=== PATIENT | female | born 1995 | race Caucasian/White ===

== ENCOUNTER 2023-07-21 13:53 | Outpatient (CLI) | payer BC, SELFPAY ==
--- OUTSIDE RECORDS SUMMARY | 2023-07-21 13:57 | XMS_ITS | Referral Summary ---
Author Name Unknown Organization [facility] Address [address] [place] [id number] Care Team Providers Care Header Dock Name Role Phone Elsewhere, Pcp Primary Care Provider Unavailabl e Source Comments Patient records contain information from all sites at [facility]. For routine questions regarding patient records, call [phone] during business hours, M-F 8:00 AM - 5:00 PM Central Time. Record requests for emergency care only can be directed to [phone] at any time.[facility] Allergies No known active allergies Medications Medication Sig Dispensed Refills Start Date End Date Status docusate sodium (COLACE) 100 mg capsule Take 1 capsule (100 mg total) by mouth 2 (two) times a day. 30 capsule 1 10/30/2021 Active Additional Information Patient not taking.Reported on 05/19/2022 ibuprofen (ADVIL,MOTRIN) 600 mg tablet Take 1 tablet (600 mg total) by mouth every 6 (six) hours as needed for mild pain or score 1-3 of 10, moderate pain or score 4-6 of 10, severe pain or score 7-10 of 10, headaches or fever. 90 tablet 0 10/30/2021 Active omega 8-hgr-vau-fish oil 1,000 mg (120 mg-180 mg) capsule Take by mouth. 0 06/01/2018 Ac tive Active Problems Problem Noted Date Diagnosed Date Maternal Care For Intrauterine Single Gest ation 10/30/2021 39 Weeks Gestation 10/29/2021 Social History Tobacco Use Types Packs/Day Years Used Date Smoking Tobacco: Never Tobacco Cessation:Counseling Given: Not Answered Nutrition Answer Date Recorded Nutrition: EVOO Fat Source Unknown 10/29 Nutrition: Servings of Fruits/Vegetables per Day Not on file 10/29/2021 Dental Answer Date Recorded Dental: Regular Dentist Unknown 10/30/19 Sex and Gender Information Value Date Recorded Sex Assigned at Not on file Gender Identity Not on file Sexual Orientation Not on file Last Filed Vital Signs Vital Sign Reading Time Taken Comments Blood Pressure 106/63 09/17/2022 1:15 PM CDT Pulse 70 09/17/2022 1:15 PM CDT Temperature 37.3 ??C (99.1 ??F) 09/17/2022 11:29 AM C DT Respiratory Rate 22 09/17/2022 1:15 PM CDT Oxygen Saturation 98% 09/17/2022 1:15 PM CDT Inhaled Oxygen Concentration - - Weight 73.6 kg (162 lb 3.2 oz) 09/17/2022 11:30 AM CDT Height 175.5 cm (5' 9.09) 05/19/2022 1:41 PM CS T Body Mass Index 23.89 05/19/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
--- OUTSIDE RECORDS SUMMARY | 2023-07-21 13:57 | XMS_ITS | Clinical Summary ---
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 For routine questions regarding patient records, call [phone] during business hours, M-F 8:00 AM - 5:00 PM Central Time. Record requests for emergency care only can be directed to [phone] at any time.[facility] Allergies No known active allergies Medications Medication [...] fever. 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 Plan of Treatment Health Maintenance Due Date Last Done Comments Cervical Cancer Screening 1995 HIV Screening 1995 Hepatitis B Vaccines (1 of 3 - 3-dose series) 1995 Hepatitis C Screening 1995 COVID-19 Vaccine (#1) 01/10/1996 Influenza Vaccine (#1) 2023 Depression Screening (Annual PHQ-2) 06/20/2023 DTaP,Tdap,and Td Vaccines (2 - Td or Tdap) 07/04/2033 07/04/2023 HPV Vaccines Aged Out No longer eligi ble based on patient's age to complete this topic Pneumococcal vaccine (0-64 years) Aged Out No longer eligible based on patient's age to complete this topic Advance Directives For more information, please contact: [phone] Latest Code Status on File Code Status Date Activated Date Inactivated Comments Full Code 10/30/2021 2:51 AM 10/30/2021 3:16 PM Question Answer Comments Full Code: Not Discussed Due to: Not medically appropriate Care Teams Car Rental Deliverer Relationship Specialty Start Date End Date Elsewhere, Pcp PCP - General Internal Medicine 09/17/22
--- OUTSIDE RECORDS SUMMARY | 2023-07-21 13:57 | XMS_ITS | Referral Summary ---
Author Name Unknown Organization [facility] Address [address] [place] [id number] Care Team Providers Care Bariatric Program Coordinator Name Role Phone Renee Bennett MD Primary Care Provider [phone] Renee Bennett MD Unavailable [phone] Unavailable [phone] Encounters Date Type Department Care Team Description 07/19/2023 4:40 PM MARBLE RUBBER Office Visit [address] [phone] Renee Bennett MD Encounter for supervision of other normal in third trimester (Primary Dx); 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 07/18/2023 Travel 07/18/2023 4:00 PM MARBLE RUBBER Office Visit [facility] [place] [address] [place] [phone] Jennifer Boyer MD Rauk, Tyshawn Flor MD Insulin controlled gestational diabetes mellitus (GDM) in third trimester (Primary Dx) 07/18/2023 3:30 PM MARBLE RUBBER - 07/18/2023 11:59 PM MARBLE RUBBER Hospital Encounter [facility] M[facility] [address] [place] [phone] Jennifer Boyer MD Rauk, Tyshawn Flor MD Gestational diabetes mellitus (GDM) in third trimester controlled on oral hypoglycemic drug; Prior with demise and current in third trimester Discharge Disposition: Home or Self Care 07/15/2023 Travel 07/15/2023 12:15 PM MARBLE RUBBER Office Visit [facility] [place] [address] [place] [address] Rosemary Cheema MD Insulin controlled gestational diabetes mellitus (GDM) in third trimester (Primary Dx); Prior with demise and current in third trimester 07/15/2023 11:40 AM MARBLE RUBBER - 07/15/2023 11:59 PM MARBLE RUBBER Hospital Encounter [facility] [place] [address] [place] [address] Rosemary Cheema MD Gestational diabetes mellitus (GDM) in third trimester controlled on oral hypoglycemic drug; Prior with demise and current in third trimester Discharge Disposition: Home or Self Care 07/15/2023 8:40 AM MARBLE RUBBER Office Visit [address] [phone] Renee Bennett MD Encounter for supervision of other normal in second trimester (Primary Dx); Gestational diabetes mellitus (GDM), antepartum, gestational diabetes method of control unspecified 07/14/2023 Travel 2023 Travel 2023 8:30 AM MARBLE RUBBER Office Visit [facility] [place] [address] [place] [phone] Rayshawn Nunez MD Insulin controlled gestational diabetes mellitus (GDM) in third trimester (Primary Dx) 2023 8:00 AM MARBLE RUBBER - 2023 11:59 PM MARBLE RUBBER Hospital Encounter [facility] [address] [place] [phone] Rayshawn Nunez MD Gestational diabetes mellitus (GDM) in third trimester controlled on oral hypoglycemic drug; Prior with demise and current in third trimester Discharge Disposition: Home or Self Care 07/08/2023 Travel 07/08/2023 Telephone [facility] [place] [address] [place] [address] Chyna Garcia RN Decreased Movement 07/08/2023 Telephone [facility] [address] [address] [facility] [address] [place] [phone] Chyna Garcia RN Decreased Movement 07/08/2023 4:10 PM MARBLE RUBBER - 07/08/2023 5:05 PM MARBLE RUBBER Hospital Encounter [facility] [address] [place] [address] Renee Bennett MD Discharge Disposition: Home or Self Care 07/06/2023 Travel 07/06/2023 4:00 PM MARBLE RUBBER Office Visit [facility] [place] [address] [facility] [address] [place] [phone] Tyshawn Mccurdy MD Gestational diabetes mellitus (GDM) in third trimester controlled on oral hypoglycemic drug (Primary Dx); Prior with demise and current in third trimester 07/06/2023 3:30 PM MARBLE RUBBER - 07/06/2023 11:59 PM MARBLE RUBBER Hospital Encounter [facility] Medicine [place] [address] [facility] [address] [place] [phone] Tyshawn Mccurdy MD Gestational diabetes mellitus (GDM) in third trimester controlled on oral hypoglycemic drug; Prior with demise and current in third trimester Discharge Disposition: Home or Self Care 07/04/2023 Travel 07/04/2023 4:00 PM MARBLE RUBBER Office Visit [facility] Medicine [place] [address] [facility] [address] [place] [phone] Rosemary Cheema MD Gestational diabetes mellitus (GDM) in third trimester controlled on oral hypoglycemic drug (Primary Dx) 07/04/2023 3:15 PM MARBLE RUBBER - 07/04/2023 11:59 PM MARBLE RUBBER Hospital Encounter [facility] Medicine [place] [address] [facility] [address] [place] [phone] Rosemary Cheema MD Gestational diabetes mellitus (GDM) in third trimester controlled on oral hypoglycemic drug; Prior with demise and current in third trimester Discharge Disposition: Home or Self Care 07/04/2023 8:20 AM MARBLE RUBBER Office Visit [address] [phone] Renee Bennett MD Encounter for supervision of other normal in second trimester (Primary Dx); Gestational diabetes mellitus (GDM), antepartum, gestational diabetes method of control unspecified; History of stillbirth 07/03/2023 Travel 07/01/2023 Travel 07/01/2023 8:30 AM MARBLE RUBBER Office Visit [facility] [place] [address] [place] [phone] Jennifer Boyer MD Gestational diabetes mellitus (GDM) in third trimester controlled on oral hypoglycemic drug (Primary Dx); Prior with demise and current in third trimester 07/01/2023 7:54 AM MARBLE RUBBER - 07/01/2023 11:59 PM MARBLE RUBBER Hospital Encounter [facility] [address] [place] [phone] Jennifer Boyer MD related condition, antepartum Discharge Disposition: Home or Self Care 06/22/2023 PRE VISIT [facility] Medicine [facility] [address] [place] [phone] Violette Zhou, GAVI Ultrasound (L2-GDM) 06/21/2023 Transcribe Orders [facility] Medicine [facility] [address] [place] [address] Renee Bennett MD related condition, antepartum (Primary Dx) 06/21/2023 Travel 06/21/2023 10:20 AM MARBLE RUBBER Office Visit [address] [phone] Renee Bennett MD Gestational diabetes mellitus (GDM), antepartum, gestational diabetes method of control unspecified (Primary Dx) 06/14/2023 Travel 06/14/2023 10:45 AM MARBLE RUBBER Virtual Visit [address] [place] [phone] [address] Gestational diabetes mellitus (GDM), antepartum, gestational diabetes method of control unspecified 06/10/[address] [address] Unknown, Provider Referral (No available appts for classes virtually for expected time of the referral) 06/03/2023 Travel 06/03/2023 8:00 AM MARBLE RUBBER Office Visit [address] [phone] Renee Bennett MD , unspecified gestational age (Primary Dx); Varicose veins during ; Gestational diabetes mellitus (GDM), antepartum, gestational diabetes method of control unspecified 05/31/2023 Travel 05/31/2023 8:00 AM MARBLE RUBBER Lab [facility] [address] [place] [phone] Elevated glucose 05/17/2023 Travel 05/17/2023 9:20 AM MARBLE RUBBER Office Visit [address] [phone] Renee Bennett MD Encounter for supervision of other normal in second trimester (Primary Dx); Elevated glucose from Last 3 Months Allergies No known active allergies Medications Medication Sig Dispensed Refills Start Date End Date Status Vit-Fe Fumarate-FA ( MULTIVITAMIN W/IRON) 27-0.8 MG tablet Take 1 tablet by mouth daily 0 Active fish oil-omega-3 fatty acids 1000 MG capsule Take 2 g by mouth daily 0 Active clobetasol (TEMOVATE) 0.05 % external solutionIndicati ons:Dermatitis Apply topically 2 times daily as needed 50 mL 1 3 Active Additional Information Patient not taking.Reported on 07/19/2023 ondansetron (ZOFRAN ODT) 8 MG ODT tabIndications:H yperemesis Take 1 tablet (8 mg) by mouth every 8 hours as needed for nausea 45 tablet 5 3 Active Additional Information Patient taking differently:8 mg Oral EVERY 8 HOURS PRN, nausea,Takes 1/2 tablet, Reported on 04/08/2023 Continuous Blood Gluc Sensor (FREESTYLE DEREK 14 DAY SENSOR) MISCIndications: Gestational diabetes mellitus (GDM), antepartum, gestational diabetes method of control unspecified 1 Device every 14 days 6 each 3 3 Active blood glucose (NO BRAND SPECIFIED) test stripIndications :Gestational diabetes mellitus (GDM), antepartum, gestational diabetes method of control unspecified Use to test blood sugar 1-4 times daily or as directed. To accompany: Blood Glucose Monitor Brands: per insurance. 100 strip 6 3 Active thin (NO BRAND SPECIFIED) lancetsIndicatio ns:Gestational diabetes mellitus (GDM), antepartum, gestational diabetes method of control unspecified Use with lanceting device. To accompany: Blood Glucose Monitor Brands: per insurance. 100 each 11 3 Active acetone urine (KETOSTIX) test stripIndications :Gestational diabetes mellitus (GDM), antepartum, gestational diabetes method of control unspecified 1 strip daily Use one strip daily for 1 week then weekly if negative 50 strip 1 3 Active Blood Glucose Monitoring Suppl (ACCU-CHEK GUIDE) w/Device KIT USE TO TEST BLOOD SUGAR 1-2 TIMES DAILY OR DIRECTED 0 3 Active B-D U/F insulin pen needle USE DIRECTED WITH LANTUS 0 4 Active insulin glargine (LANTUS PEN) 100 UNIT/ML penIndications:G estational diabetes mellitus (GDM), antepartum, gestational diabetes method of control unspecified Inject 17 Units Subcutaneous every morning -with pharmacist recommended needles. 9 mL 1 4 Active insulin lispro (HUMALOG KWIKPEN) 100 UNIT/ML (1 unit dial) KWIKPENIndicatio ns:Gestational diabetes mellitus (GDM), antepartum, gestational diabetes method of control unspecified Inject 2-6 Units Subcutaneous 2 times daily (before meals) 0 4 Active blood glucose monitoring (NO BRAND SPECIFIED) meter device kitIndications:G estational diabetes mellitus (GDM), antepartum, gestational diabetes method of control unspecified Use to test blood sugar 1-2 times daily or as directed. Preferred blood glucose meter OR supplies to accompany: Blood Glucose Monitor Brands: per insurance. 1 kit 0 3 07/15/19 24 Discontinued(Sto pped by Patient (No AVS)) metFORMIN (GLUCOPHAGE XR) 500 MG 24 hr tabletIndication s:Gestational diabetes mellitus (GDM), antepartum, gestational diabetes method of control unspecified Take 1-4 tablets (500-2,000 mg) by mouth daily (with dinner) 90 tablet 3 4 07/04/19 24 Discontinued(Med Rec(No AVS / No eCancel)) insulin lispro (HUMALOG KWIKPEN) 100 UNIT/ML (1 unit dial) KWIKPENIndicatio ns:Gestational diabetes mellitus (GDM), antepartum, gestational diabetes method of control unspecified Inject 6 Units Subcutaneous daily (with breakfast) 15 mL 3 4 07/15/19 24 Discontinued insulin glargine (LANTUS PEN) 100 UNIT/ML penIndications:G estational diabetes mellitus (GDM), antepartum, gestational diabetes method of control unspecified Inject 16 Units Subcutaneous every morning -with pharmacist recommended needles. 9 mL 1 4 07/15/19 24 Discontinued Active Problems Problem Noted Date Diagnosed Date Encounter for triage in patient 024 Encounter for supervision of other normal in second trimester 03/10/2023 Hyperemesis 01/04/2023 Pelvic floor dysfunction in female 07/10/2020 Dyspareunia, female 07/10/2020 Dermatitis 07/10/2020 Estimated Date of Delivery Comme nts Yes 08/23/2023 Based on last me nstrual period of 11/16/2022 (Exact Date) Immunizations Name Administration Dates Next Due RSV Vaccine (Abrysvo) 07/15/2023 TDAP (Adacel,Boostrix) 07/04/2023 Social History Tobacco Use Types Packs/Day Years Used Date Smoking Tobacco: Never Smokeless Tobacco: Never Tobacco Cessation:Counseling Given: Not Answered Alcohol Use Standard Drinks/Week Comments Not Currently 0 (1 standard drink = 0.6 oz pur e alcohol) PHQ-2 Answer Date Recorded PHQ-2 Score 0 07/15/2023 Adolescent Education Answer Date Record ed Getting School Help Needed Not on file 03/11 Food Insecurity Answer Date Recorded Within the past 12 months, d id you worry that your food would run out before you got money to buy more? No 06/14/2023 Within the past 12 months, d id the food you bought just not last and you didn? t have money to get more? No 06/14/2023 Housing Stability Answer Date Recorded Do you have housing? Yes 06/14/2023 Are you worried about losing your housing? No 06/14/2023 Financial Resource Strain Answer Date R ecorded Within the past 12 months, h ave you or your family members you live with been unable to get utilities (heat, electricity) when it was really needed? No 06/14/2023 Transportation Needs Answer Date Record ed Within the past 12 months, h as lack of transportation kept you from medical appointments, getting your medicines, non-medical meetings or appointments, work, or from getting things that you need? No 06/14/2023 Interpersonal Safety Answer Date Record ed Do you feel physically and e motionally safe where you currently live? Yes 07/19/2023 Within the past 12 months, h ave you been hit, slapped, kicked or otherwise physically hurt by someone? No 07/19/2023 Within the past 12 months, h ave you been humiliated or emotionally abused in other ways by your partner or ex-partner? No 07/19/2023 Estimated Date of Delivery Comme nts Yes 08/23/2023 Based on last me nstrual period of 11/16/2022 (Exact Date) Sex and Gender Information Value Date Recorded Sex Assigned at Not on file Gender Identity Not on file Sexual Orientation Not on file Last Filed Vital Signs Vital Sign Reading Time Taken Comments Blood Pressure 110/58 07/19/2023 4:36 PM MARBLE RUBBER Pulse 92 07/19/2023 4:36 PM MARBLE RUBBER Temperature 36.1 ??C (97 ??F) 07/19/2023 4:36 PM MARBLE RUBBER Respiratory Rate 16 07/15/2023 8:48 AM MARBLE RUBBER Oxygen Saturation 97% 07/19/2023 4:36 PM MARBLE RUBBER Inhaled Oxygen Concentration - - Weight 82.1 kg (181 lb) 07/19/2023 4:36 PM MARBLE RUBBER Height 174 cm (5' 8.5) 07/15/2023 8:48 AM MARBLE RUBBER Body Mass Index 27.12 07/15/2023 8:48 AM MARBLE RUBBER Plan of Treatment Upcoming Encounters Date Type Department Care Team (Late st Contact Info) Description 07/22/2023 8:45 AM MARBLE RUBBER Appointment [facility] [place] [address] [facility] [address] [place] [phone] Sheila Jones MD [address] [place], [place] [phone] 07/22/2023 9:15 AM MARBLE RUBBER Office Visit [facility] [place] [address] [facility] [address] [place] [phone] Sheila Jones MD [address] [place], [place] [phone] 07/26/2023 8:00 AM MARBLE RUBBER Appointment [facility] [place] [address] [facility] [address] [place] [phone] Jennifer Boyer MD [address] [place], [place] [address] Rayshawn Nunez MD [address] [place], [place] [phone] 07/26/2023 8:30 AM MARBLE RUBBER Office Visit [facility] [place] [address] [facility] [address] [place] [phone] Jennifer Boyer MD [address] [place], [place] [phone] Rayshawn Nunez MD [address] [place] [address] 07/29/2023 8:00 AM MARBLE RUBBER Office Visit [address] [phone] Renee Bennett MD [address] [place] [phone] 07/29/2023 11:45 AM MARBLE RUBBER Appointment [facility] [address] [address] [facility] [address] [place] [phone] Jennifer Boyer MD [address] [place] [address] 07/29/2023 12:15 PM MARBLE RUBBER Office Visit [facility] [address] [address] [place] [phone] Jennifer Boyer MD [address] [place] [address] 08/05/2023 8:00 AM MARBLE RUBBER Office Visit [address] [phone] Renee Bennett MD [address] [place] [phone] 08/23/2023 Hospital Encounter [facility] [address] [place] [phone] Renee Bennett MD [address] [place] [phone] Procedures Procedure Name Priority Date/Time Associated Diagnosis Comments GLUCOSE ALBUMIN OB URINE Routine 07/19/2023 4:28 PM MARBLE RUBBER Encounter for supervision of other normal in third trimester [facility] BPP SINGLE Routine 07/18/2023 3:55 PM MARBLE RUBBER Gestational diabetes mellitus (GDM) in third trimester controlled on oral hypoglycemic drug Prior with demise and current in third trimester [facility] SINGLE Routine 07/15/2023 12:07 PM MARBLE RUBBER Gestational diabetes mellitus (GDM) in third trimester controlled on oral hypoglycemic drug Prior with demise and current in third trimester GLUCOSE ALBUMIN OB URINE Routine 07/15/2023 8:30 AM MARBLE RUBBER Encounter for supervision of other normal in second trimester [facility] SINGLE Routine 2023 8:41 AM MARBLE RUBBER Gestational diabetes mellitus (GDM) in third trimester controlled on oral hypoglycemic drug Prior with demise and current in third trimester NON-STRESS TEST - HIM SCAN 07/08/2023 12:00 AM MARBLE RUBBER [facility] SINGLE Routine 07/06/2023 3:49 PM MARBLE RUBBER Gestational diabetes mellitus (GDM) in third trimester controlled on oral hypoglycemic drug Prior with demise and current in third trimester [facility] SINGLE Routine 07/04/2023 3:38 PM MARBLE RUBBER Gestational diabetes mellitus (GDM) in third trimester controlled on oral hypoglycemic drug Prior with demise and current in third trimester BETA 2 GLYCOPROTEIN ANTIBODIES IGG IGM Routine 07/04/2023 9:42 AM MARBLE RUBBER History of stillbirth CARDIOLIPIN BRENDEN IGG AND IGM Routine 07/04/2023 9:42 AM MARBLE RUBBER History of stillbirth LUPUS ANTICOAGULANT PANEL Routine 07/04/2023 9:42 AM MARBLE RUBBER History of stillbirth GLUCOSE ALBUMIN OB URINE Routine 07/04/2023 8:20 AM MARBLE RUBBER Encounter for supervision of other normal in second trimester MFM US COMPREHENSIVE SINGLE Routine 07/01/2023 8:44 AM MARBLE RUBBER related condition, antepartum GLUCOSE ALBUMIN OB URINE Routine 06/03/2023 8:42 AM MARBLE RUBBER , unspecified gestational age GESTATIONAL GLUCOSE TOLERANCE TESTING, 3 HOUR Routine 05/31/2023 11:21 AM MARBLE RUBBER Elevated glucose GESTATIONAL GLUCOSE TOLERANCE TESTING, 2 HOUR Routine 05/31/2023 10:14 AM MARBLE RUBBER Elevated glucose GESTATIONAL GLUCOSE TOLERANCE TESTING, 1 HOUR Routine 05/31/2023 9:17 AM MARBLE RUBBER Elevated glucose GESTATIONAL GLUCOSE TOLERANCE TESTING, 3 HOUR Routine 05/31/2023 8:00 AM MARBLE RUBBER Elevated glucose GESTATIONAL GLUCOSE TOLERANCE TESTING, FASTING Routine 05/31/2023 8:00 AM MARBLE RUBBER Elevated glucose GLUCOSE ALBUMIN OB URINE Routine 05/17/2023 1:19 PM MARBLE RUBBER Encounter for supervision of other normal in second trimester GLUCOSE TOLERANCE GEST SCREEN 1 HOUR Routine 05/17/2023 10:39 AM MARBLE RUBBER Encounter for supervision of other normal in second trimester FERRITIN Routine 05/17/2023 10:29 AM MARBLE RUBBER Encounter for supervision of other normal in second trimester OB HEMOGLOBIN Routine 05/17/2023 10:29 AM MARBLE RUBBER Encounter for supervision of other normal in second trimester TSH WITH FREE T4 REFLEX Routine 05/17/2023 10:29 AM MARBLE RUBBER Encounter for supervision of other normal in second trimester VITAMIN D DEFICIENCY SCREENING Routine 05/17/2023 10:29 AM MARBLE RUBBER Encounter for supervision of other normal in second trimester from Last 3 Months Results * Glucose and albumin, OB urine (07/19/2023 4:28 PM MARBLE RUBBER) Only the most recent of5 resultswithin the time period is included. Protein Albumin Urine Negative Negative mg/dL 07/19/2023 4:30 PM [facility]BLE [facility]BBER [facility] Glucose Urine Negative Negative mg/dL 07/19/2023 4:30 PM [facility]ER [facility] Urine MID-STREAM URINE SPECIMEN / Unknown Non-blood Collection / Unknown 07/19/2023 4:28 PM MARBLE RUBBER 07/19/2023 4:28 PM MARBLE RUBBER Renee Bennett MD LAB - URINE ORDERABL ES [facility] [address] Lab (no room number, 1st floor of clinic) [place] [address], [facility] [phone] * Maternal BPP Single (07/18/2023 3:55 PM MARBLE RUBBER) Only the most recent of5 resultswithin the time period is included. Anatomical Region Laterality Modality Ultrasound 07/18/2023 3:34 PM MARBLE RUBBER Impressions 07/18/2023 3:57 PM MARBLE RUBBER IMPRESSION ----- 1) Normal amniotic fluid volume. 2) BPP is reassuring. Narrative 07/18/2023 3:57 PM MARBLE RUBBER ?BPP ----- Pat. Name: YU RENEE ? Study Date: ??07/18/2023 3:34pm Pat. NO: ??[id number] ?Referring ??MD: RENEE BENNETT Site: ??[facility] ? Barrel Cutter: Kirstin Gold [facility] : ??1995 ?Age: ?? 28 ----- INDICATION ----- Gestational Diabetes (GDM) - on Insulin History of term IUFD METHOD ----- Transabdominal ultrasound examination. View: Sufficient ----- [place] . Number of fetuses: 1 DATING ----- ? Date ?Details ?Gest. age ?[place] LMP ?11/16/2022 ?Cycle: regular cycle ?34 w + 6 d ? 08/23/2023 Prior assessment ? 01/05/2023 ? GA: 7 w + 1 d ?34 w + 6 d ? 08/23/2023 Assigned dating ?Dating performed on 07/15/2023, based on the LMP ?34 w + 6 d ? 08/23/2023 GENERAL EVALUATION ----- Cardiac activity present. FHR 134 bpm. movements visualized. Presentation tranverse with head to maternal left. Placenta Anterior. Umbilical cord previously studied. AMNIOTIC FLUID ASSESSMENT ----- Amount of AF: normal MVP 4.4 cm BIOPHYSICAL PROFILE ----- 2: breathing movements 2: Gross body movements 2: tone 2: Amniotic fluid volume 8/8 Biophysical profile score Interpretation: normal RECOMMENDATION ----- We discussed the findings on today's ultrasound with the patient. The patient is scheduled to continue weekly testing with BPPs. Return to primary provider for continued care. Thank-you for the opportunity to participate in the care of this patient. If you have questions regarding today's evaluation or if we can be of further service, please contact the Maternal[facility] Center. anomalies may be present but not detected Procedure Note Tyshawn Mccurdy MD - 07/18/2023 BPP ----- Pat. Name: YU RENEE Study Date: 07/18/2023 3:34pm Pat. NO: [id number] Referring MD: RENEE BENNETT Site: [facility] Barrel Cutter: Kirstin Gold [facility] : 1995 Age: 28 ----- INDICATION ----- Gestational Diabetes (GDM) - on Insulin History of term IUFD METHOD ----- Transabdominal ultrasound examination. View: Sufficient ----- [place] . Number of fetuses: 1 DATING ----- DateDetailsGest. age [place] LMP 11/16/2022ycle: regular cycle34 w + 6 d 08/23/2023 Prior assessment 01/05/2023 GA: 7 w +1 d34 w + 6 d 08/23/2023 Assigned dating Dating performed on 07/15/2023, based onthe LMP 34 w +6 d 08/23/2023 GENERAL EVALUATION ----- Cardiac activity present. FHR 134 bpm. movements visualized. Presentation tranverse with head to maternal left. Placenta Anterior. Umbilical cord previously studied. AMNIOTIC FLUID ASSESSMENT ----- Amount of AF: normal MVP 4.4 cm BIOPHYSICAL PROFILE ----- 2: breathing movements 2: Gross body movements 2: tone 2: Amniotic fluid volume 8/8 Biophysical profile score Interpretation: normal RECOMMENDATION ----- We discussed the findings on today's ultrasound with the patient. The patient is scheduled to continue weekly testing with BPPs. Return to primary provider for continued care. Thank-you for the opportunity to participate in the care of this patient.If you have questions regarding today's evaluation or if we can be offurther service, please contact the [facility]. anomalies may be present but not detected IMPRESSION ----- 1) Normal amniotic fluid volume. 2) BPP is reassuring. Jennifer Boyer MD [facility] US ORDERAB LES * NON-STRESS TEST - HIM SCAN (07/08/2023 12:00 AM MARBLE RUBBER) 07/08/2023 Provider Outside PROCEDURES * Cardiolipin Brenden IgG and IgM (07/04/2023 9:42 AM MARBLE RUBBER) Cardiolipin Brenden IgG Instrument Value <2.0 <10.0 GPL-U/mL 07/06/2023 11:27 AM MARBLE RUBBER SPECIALTY CORE/PROT/END O Cardiolipin Antibody IgG Negative Negative 07/06/2023 11:27 AM MARBLE RUBBER SPECIALTY CORE/PROT/END O Cardiolipin Brenden IgM Instrument Value 2.2 <10.0 MPL-U/mL 07/06/2023 11:27 AM MARBLE RUBBER SPECIALTY CORE/PROT/END O Cardiolipin Antibody IgM Negative Negative 07/06/2023 11:27 AM MARBLE RUBBER SPECIALTY CORE/PROT/END O Blood BLOOD SPECIMEN / Unknown Venipuncture / Unknown 07/04/2023 9:42 AM MARBLE RUBBER 07/04/2023 9:43 AM MARBLE RUBBER Renee Bennett MD LAB - BLOOD ORDERABL ES UM SPECIALTY CORE/PROT/ENDO UM Specialty Core/Prot/Endo [address] [facility], [address] [phone] * Beta 2 Glycoprotein Antibodies IGG IGM (07/04/2023 9:42 AM MARBLE RUBBER) Beta 2 Glycoprotein 1 Antibody IgG 1.0 <7.0 U/mL 07/06/2023 11:27 AM MARBLE RUBBER UM SPECIALTY CORE/PROT/END O Comment:Negative Beta 2 Glycoprotein 1 Antibody IgM 3.3 <7.0 U/mL 07/06/2023 11:27 AM MARBLE RUBBER SPECIALTY CORE/PROT/END O Comment:Negative Blood BLOOD SPECIMEN / Unknown Venipuncture / Unknown 07/04/2023 9:42 AM MARBLE RUBBER 07/04/2023 9:43 AM MARBLE RUBBER Renee Bennett MD LAB - BLOOD ORDERABL ES UM SPECIALTY CORE/PROT/ENDO UM Specialty Core/Prot/Endo [address] [facility] [address], [address] [place] [id number] [phone] * Lupus Anticoagulant Panel (07/04/2023 9:42 AM MARBLE RUBBER) INR 1.04 0.85 - 1.15 4 4:15 PM MARBLE RUBBER UM SPECIAL COAGULATION Thrombin Time 17.0 13.0 - 19.0 Seconds 4 4:15 PM MARBLE RUBBER [facility] SPECIAL COAGULATION PTT Ratio 0.97 <1.21 4 4:15 PM MARBLE RUBBER UM SPECIAL COAGULATION DRVVT Screen Ratio 0.91 <1.08 4 4:15 PM MARBLE RUBBER UM SPECIAL COAGULATION Lupus Result Negative Negative 4:15 PM MARBLE RUBBER UM SPECIAL COAGULATION Lupus Interpretation The INR is normal. APTT ratio is normal. ?? DRVVT Screen ratio is normal. Thrombin time is normal. NEGATIVE TEST; A LUPUS ANTICOAGULANT WAS NOT DETECTED IN THIS SPECIMEN WITHIN THE LIMITS OF THE TESTING REPERTOIRE. If the clinical picture is strongly suggestive of an antiphospholipid syndrome, recommend anticardiolipin and othl-6-cjontaptnyx n (IgG and IgM) antibody tests. Salina James MD, PhD [facility] 4:15 PM MARBLE RUBBER UM SPECIAL COAGULATION Blood BLOOD SPECIMEN / Unknown Venipuncture / Unknown 07/04/2023 9:42 AM MARBLE RUBBER 07/04/2023 9:43 AM MARBLE RUBBER Renee Bennett MD LAB - BLOOD ORDERABL ES UM SPECIAL COAGULATION UM Special Coagulation [address] [facility] [address], [address] [address], [facility] [phone] * [facility] US Comprehensive Single (07/01/2023 8:44 AM MARBLE RUBBER) Anatomical Region Laterality Modality Ultrasound 07/01/2023 7:55 AM MARBLE RUBBER Impressions 07/01/2023 10:53 AM MARBLE RUBBER IMPRESSION ----- 1) Brumfield intrauterine at 32w 3d gestational age. 2) None of the anomalies commonly detected by ultrasound were evident in the detailed anatomic survey described above, although evaluation of anatomy was suboptimal as noted above. 3) Growth parameters and estimated weight were consistent with an appropriate for gestation age pattern of growth. 4) The amniotic fluid volume appeared normal. 5) The BPP was reassuring. Narrative 07/01/2023 10:53 AM MARBLE RUBBER ?Comprehensive ----- Pat. Name: YU RENEE ? Study Date: ??07/01/2023 7:55am Pat. NO: ??[id number] ?Referring ??: RENEE BENNETT Site: [facility] ? Barrel Cutter: Kirstin Gold RDMS : ??1995 ?Age: ?? 27 ----- INDICATION ----- Gestational Diabetes on Metformin. History of IUFD. Declined screening. METHOD ----- Transabdominal ultrasound examination. View: Sufficient ----- Brumfield . Number of fetuses: 1 DATING ----- ? Date ?Details ?Gest. age ?[place] LMP ?11/16/2022 ?Cycle: regular cycle ?32 w + 3 d ? 08/23/2023 Prior assessment ? 01/05/2023 ? GA: 7 w + 1 d ?32 w + 3 d ? 08/23/2023 U/S ? 07/01/2023 ? based upon AC, BPD, Femur, HC ?32 w + 0 d ? 08/26/2023 Assigned dating ?Dating performed on 07/01/2023, based on the LMP ?32 w + 3 d ? 08/23/2023 GENERAL EVALUATION ----- Cardiac activity present. FHR 140 bpm. movements present. Presentation breech, transverse with head to maternal right. Placenta anterior, fundal, no previa > 2 cm from internal os . Umbilical cord Cord vessels: 3 vessel cord. Insertion site: normal insertion. Amniotic fluid Amount of AF: normal. MVP 4.9 cm. BIOMETRY ----- Main Biometry: BPD ?77.9 ?mm ? 31w 2d ?Hadlock OFD ?103.4 ?mm ? 30w 3d ? Nicolaides HC ?288.2 ?mm ?31w 5d ?Hadlock Cerebellum tr ?43.0 ? mm ?37w 0d ?Nicolaides AC ?285.8 ?mm ?32w 4d ?55% ?Hadlock Femur ?62.3 ? mm ?32w 2d ?Hadlock Humerus ?57.3 ?mm ? 33w 2d ?Randell Weight Calculation: EFW ? 1,943 ?g ? 36% ?Hadlock EFW (lb,oz) ? 4 lb 5 ?oz EFW by ?Hadlock ([id number]) Head / Face / Neck Biometry: Vocational Rehabilitation Teacher ? 6.3 ? mm CM ?8.5 ? mm ANATOMY ----- The following structures appear normal: Head / Neck ? Cranium. Head size. Head shape. Lateral ventricles. Choroid plexus. Midline falx. Cavum septi pellucidi. Cerebellum. Cisterna magna. ? Parenchyma. Thalami. Vermis. ? Neck. Face ? Lips. Heart / Thorax ?4-chamber view. RVOT view. LVOT view. Situs. Bicaval view. Superior vena cava. Inferior vena cava. 3-vessel view. 6-ujefnf-ujpfeoq view. ? Cardiac position. Cardiac size. Cardiac rhythm. ? Right lung. Left lung. Diaphragm. Abdomen ? Abdominal wall. Cord insertion. Stomach. Kidneys. Bladder. Liver. Bowel. Genitals. Spine ?Cervical spine. Thoracic spine. Lumbar spine. Sacral spine. Extremities / Skeleton ?Right arm. Left arm. Left hand. Right leg. Right foot. Left leg. Left foot. The following structures could not be adequately visualized: Face ? Orbits. Extremities / Skeleton ?Right hand. The following structures could not be visualized: Face ? Profile. Nose. Maxilla. Mandible. Lens. Heart / Thorax ?Aortic arch view. Ductal arch view. Gender: female. MATERNAL STRUCTURES ----- Cervix ?Visualized ? Appearance: Appears Closed ? Approach - Transabdominal: Cervical length 48.0 mm Right Ovary ?Visualized Left Ovary ?Visualized BIOPHYSICAL PROFILE ----- 2: breathing movements 2: Gross body movements 2: tone 2: Amniotic fluid volume 8/8 Biophysical profile score Interpretation: normal RECOMMENDATION ----- We discussed the findings on today's ultrasound with the patient. Yu is a 27 yo at 32w 3d with complicated by history of stillbirth at 39w 3d on 10/30/2021, as well as diagnosis of gestational diabetes in the current . Yu had a stillbirth at 39w 3d in her third . Her baby weighed 10 pounds 4 ounces at . KB was negative for evaluation for fetomateral hemorrhage. Her hemoglobin A1c was elevated to 6.9% at that time, at it was suspected that she had undiagnosed gestational diabetes. Review of records does not reveal any APS testing. In the current Yu was diagnosed with gestational diabetes. She was started on Metformin. Her blood sugars have been within the target range. We discussed that insulin is preferred for management of gestational diabetes as insulin does not cross the placenta, and there is lower risk for macrosomia, section and hypoglycemic. 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 We discussed the recommendations for management of the given her history of prior stillbirth, as well as gestational diabetes on metformin. Recommend surveillance with twice weekly BPP, as well as serial ultrasounds to monitor growth. We discussed that if blood sugars remain well controlled then delivery would be recommended at 39w 0d. If blood sugars are sub-optimally controlled, earlier delivery would be recommended. Additionally, we discussed that delivery as early as 37w 0d can be considered for maternal anxiety if desired given the history of stillbirth. We reviewed the risks or early term delivery, including RDS, hypoglycemia and hyperbilirubinemia. She can continue to consider timing of delivery as the progresses. Finally, I would recommend testing for antiphospholipid antibody syndrome (APS) if confirmed that not completed previously (anti-beta 2 glycoprotein, anti-cardiolipin antibodies, as well as lupus anticoagulant). This was not discussed at the time of today's visit. surveillance with twice weekly BPP is recommended, as well as a repeat assessment of growth and the anatomy that was sub-optimally visualized in 4 weeks. These appointments have been scheduled in our office. Return to primary provider for continued care. Thank-you for the opportunity to participate in the care of this patient. If you have questions regarding today's evaluation or if we can be of further service, please contact the [facility]. anomalies may be present but not detected I spent a total of 25 minutes on the date of this encounter including preparing to see the patient (reviewing medical records/tests), in direct gyym-qs-isme contact with the patient during her visit with the majority spent counseling and discussing the plan of care and documenting the visit in the electronic medical record. Please see note for details. Procedure Note Jennifer Boyer MD - 07/01/2023 Comprehensive ----- Pat. Name: YU RENEE Study Date: 07/01/2023 7:55am Pat. NO: [id number] Referring MD: RENEE BENNETT Site: [facility] Barrel Cutter: Kirstin Gold RDMS : 1995 Age: 27 ----- INDICATION ----- Gestational Diabetes on Metformin. History of IUFD. Declined screening. METHOD ----- Transabdominal ultrasound examination. View: Sufficient ----- Brumfield . Number of fetuses: 1 DATING ----- DateDetailsGest. age [place] LMP 11/16/2022ycle: regular cycle32 w + 3 d 08/23/2023 Prior assessment 01/05/2023 GA: 7 w +1 d32 w + 3 d 08/23/2023 U/S 07/01/2023ased upon AC, BPD, Femur, HC32 w + 0 d 08/26/2023 Assigned dating Dating performed on 07/01/2023, based onthe LMP 32 w +3 d 08/23/2023 GENERAL EVALUATION ----- Cardiac activity present. FHR 140 bpm. movements present. Presentation breech, transverse with head to maternal right. Placenta anterior, fundal, no previa > 2 cm from internal os . Umbilical cord Cord vessels: 3 vessel cord. Insertion site: normalinsertion. Amniotic fluid Amount of AF: normal. MVP 4.9 cm. BIOMETRY ----- Main Biometry: BPD 77.9 mm31w 2d Hadlock OFD 103.4 mm30w 3d Nicolaides HC 288.2 mm31w 5d Hadlock Cerebellum tr 43.0 mm37w 0d Nicolaides AC 285.8 mm32w 4d 55% Hadlock Femur 62.3 mm32w 2d Hadlock Humerus 57.3 mm33w 2d Randell Weight Calculation: EFW 1,943 g36% Hadlock EFW (lb,oz) 4 lb 5 oz EFW by Hadlock ([id number]) Head / Face / Neck Biometry: Vocational Rehabilitation Teacher 6.3 mm CM 8.5 mm ANATOMY ----- The following structures appear normal: Head / Neck Cranium. Head size. Head shape.Lateral ventricles. Choroid plexus. Midline falx. Cavum septi pellucidi.Cerebellum. Cisterna magna. Parenchyma. Thalami. Vermis. Neck. Face Lips. Heart / Thorax 4-chamber view. RVOT view. LVOT view.Situs. Bicaval view. Superior vena cava. Inferior vena cava. 3-vesselview. 5-yzmqdt-afflddg view. Cardiac position. Cardiac size.Cardiac rhythm. Right lung. Left lung.Diaphragm. Abdomen Abdominal wall. Cord insertion.Stomach. Kidneys. Bladder. Liver. Bowel. Genitals. Spine Cervical spine. Thoracic spine.Lumbar spine. Sacral spine. Extremities / Skeleton Right arm. Left arm. Left hand. Right leg.Right foot. Left leg. Left foot. The following structures could not be adequately visualized: Face Orbits. Extremities / Skeleton Right hand. The following structures could not be visualized: Face Profile. Nose. Maxilla. Mandible.Lens. Heart / Thorax Aortic arch view. Ductal arch view. Gender: female. MATERNAL STRUCTURES ----- Cervix Visualized Appearance: Appears Closed Approach - Transabdominal:Cervical length 48.0 mm Right Ovary Visualized Left Ovary Visualized BIOPHYSICAL PROFILE ----- 2: breathing movements 2: Gross body movements 2: tone 2: Amniotic fluid volume 8/8 Biophysical profile score Interpretation: normal RECOMMENDATION ----- We discussed the findings on today's ultrasound with the patient. Yu is a 27 yo at 32w 3d with complicated by historyof stillbirth at 39w 3d on 10/30/2021, as well as diagnosis of gestationaldiabetes in the current . Yu had a stillbirth at 39w 3d in her third . Chris weighed 10 pounds 4 ounces at . KB was negative for evaluationfor fetomateral hemorrhage. Her hemoglobin A1c was elevated to 6.9% at that time, at itwas suspected that she had undiagnosed gestational diabetes. Review ofrecords does not reveal any APS testing. In the current Yu was diagnosed with gestational diabetes.She was started on Metformin. Her blood sugars have been within the targetrange. We discussed that insulin is preferred for management of gestational diabetesas insulin does not cross the placenta, and there is lower risk formacrosomia, section and hypoglycemic. 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 We discussed the recommendations for management of the given herhistory of prior stillbirth, as well as gestational diabetes on metformin.Recommend surveillance with twice weekly BPP, as well as serialultrasounds to monitor growth. We discussed that if blood sugarsremain well controlled then delivery would be recommended at 39w 0d. If blood sugars are sub-optimallycontrolled, earlier delivery would be recommended. Additionally, wediscussed that delivery as early as 37w 0d can be considered for maternal anxiety if desired given the historyof stillbirth. We reviewed the risks or early term delivery, includingRDS, hypoglycemia and hyperbilirubinemia. She can continue to consider timing of delivery as thepregnancy progresses. Finally, I would recommend testing forantiphospholipid antibody syndrome (APS) if confirmed that not completed previously (anti-beta 2glycoprotein, anti-cardiolipin antibodies, as well as lupusanticoagulant). This was not discussed at the time of today's visit. surveillance with twice weekly BPP is recommended, as well as arepeat assessment of growth and the anatomy that was sub-optimallyvisualized in 4 weeks. These appointments have been scheduled in our office. Return to primary provider for continued care. Thank-you for the opportunity to participate in the care of this patient.If you have questions regarding today's evaluation or if we can be offurther service, please contact the [facility]. anomalies may be present but not detected I spent a total of 25 minutes on the date of this encounter includingpreparing to see the patient (reviewing medical records/tests), in jsizswkgxw-rh-khch contact with the patient during her visit with the majority spent counseling and discussingthe plan of care and documenting the visit in the electronic medicalrecord. Please see note for details. IMPRESSION ----- 1) Brumfield intrauterine at 32w 3d gestational age. 2) None of the anomalies commonly detected by ultrasound were evident inthe detailed anatomic survey described above, although evaluation offetal anatomy was suboptimal as noted above. 3) Growth parameters and estimated weight were consistent with anappropriate for gestation age pattern of growth. 4) The amniotic fluid volume appeared normal. 5) The BPP was reassuring. Renee Bennett MD [facility] ORDERABLE S * Gestational Glucose Tolerance Testing, 3 Hour (05/31/2023 11:21 AM MARBLE RUBBER) Gestational GTT 3 Hr Post Dose 110 60 - 139 mg/dL 06/02/2023 12:14 AM MARBLE RUBBER [facility] Blood BLOOD SPECIMEN / Unknown Venipuncture / Unknown 05/31/2023 11:21 AM MARBLE RUBBER 05/31/2023 11:21 AM MARBLE RUBBER Narrative [facility] - 06/02/2023 12:14 AM MARBLE RUBBER Blood glucose levels collected at fasting, 1 hour, 2 hours and 3 hours after ingestion of 100g glucose during . The diagnosis of gestational diabetes mellitus is made when 2 or more of the glucose values listed below are met or exceeded: Fasting ? 95 mg/dL 1 hour ?180 mg/dL 2 hour ?155 mg/dL 3 hour ?140 mg/dL Renee Bennett MD LAB - BLOOD ORDERABL ES [facility] Core Lab [address] [facility], [address] [place] [address], [facility] [phone] * (ABNORMAL) Gestational Glucose Tolerance Testing, 2 Hour (05/31/2023 10:14 AM MARBLE RUBBER) Gestational GTT 2 Hr Post Dose 218(H) 60 - 154 mg/dL 06/01/2023 2:26 PM MARBLE RUBBER [facility] Blood BLOOD SPECIMEN / Unknown Venipuncture / Unknown 05/31/2023 10:14 AM MARBLE RUBBER 05/31/2023 10:14 AM MARBLE RUBBER Renee Bennett MD LAB - BLOOD ORDERABL ES UR LABORATORY [facility] [address] [facility], [address] [place] [address], [place] [phone] * (ABNORMAL) Gestational Glucose Tolerance Testing, 1 Hour (05/31/2023 9:17 AM MARBLE RUBBER) Gestational GTT 1 Hr Post Dose 192(H) 60 - 179 mg/dL 05/31/2023 5:31 PM MARBLE RUBBER [facility] Blood BLOOD SPECIMEN / Unknown Venipuncture / Unknown 05/31/2023 9:17 AM MARBLE RUBBER 05/31/2023 9:17 AM MARBLE RUBBER Renee Bennett MD LAB - BLOOD ORDERABL ES [facility] [place] [facility] [address] [facility], [address] [place] [address], [facility] [phone] * (ABNORMAL) Gestational Glucose Tolerance Testing, Fasting (05/31/2023 8:00 AM MARBLE RUBBER) Gestational GTT Fasting 123(H) 60 - 94 mg/dL 05/31/2023 7:28 PM MARBLE RUBBER [facility] Blood BLOOD SPECIMEN / Unknown Venipuncture / Unknown 05/31/2023 8:00 AM MARBLE RUBBER 05/31/2023 8:06 AM MARBLE RUBBER Renee Bennett MD LAB - BLOOD ORDERABL ES [facility] [place] [facility] [address] [facility], [address] [place] [address], [facility] [phone] * (ABNORMAL) Glucose tolerance gest screen 1 hour (05/17/2023 10:39 AM MARBLE RUBBER) Glu Gest Screen 1hr 50g 142(H) 70 - 129 mg/dL 05/17/2023 10:56 AM MARBLE RUBBER [facility] Blood BLOOD SPECIMEN / Unknown Venipuncture / Unknown 05/17/2023 10:39 AM MARBLE RUBBER 05/17/2023 10:39 AM MARBLE RUBBER Narrative [facility] - 05/17/2023 10:56 AM MARBLE RUBBER This is a screening test for Gestational Diabetes Mellitus. If results are 130 mg/dL or greater, a Standard 100 gram Gestational ??3 hour Glucose Tolerance should be performed. Renee Bennett MD LAB - BLOOD ORDERABL ES [facility] [address] [facility] (no room number, 1st floor of clinic) [place] [address], [facility] [phone] * Vitamin D Deficiency (05/17/2023 10:29 AM MARBLE RUBBER) Vitamin D, Total (25-Hydroxy) 45 20 - 50 ng/mL 05/17/2023 8:59 PM MARBLE RUBBER [facility] Comment:optimum levels Blood BLOOD SPECIMEN / Unknown Venipuncture / Unknown 05/17/2023 10:29 AM MARBLE RUBBER 05/17/2023 10:29 AM MARBLE RUBBER Narrative [facility] - 05/17/2023 8:59 PM MARBLE RUBBER Season, race, dietary intake, and treatment affect the concentration of 74-xvykrje-Pgxqcdo D. Values may decrease during winter months and increase during summer months. Vitamin D determination is routinely performed by an immunoassay specific for 25 hydroxyvitamin D3. ??If an individual is on vitamin D2(ergocalciferol) supplementation, please specify 25 OH vitamin D2 and D3 level determination by LCMSMS test VITD23. Renee Bennett MD LAB - BLOOD ORDERABL ES [facility] [place] [facility] [address] [facility], [address] [address], [facility] [phone] * TSH with free T4 reflex (05/17/2023 10:29 AM MARBLE RUBBER) TSH 1.00 0.30 - 4.20 uIU/mL 05/17/2023 8:59 PM MARBLE RUBBER [facility] Blood BLOOD SPECIMEN / Unknown Venipuncture / Unknown 05/17/2023 10:29 AM MARBLE RUBBER 05/17/2023 10:29 AM MARBLE RUBBER Renee Bennett MD LAB - BLOOD ORDERABL ES [facility] [place] [facility] [address] [facility], [address] [place] [address], [facility] [phone] * OB hemoglobin (05/17/2023 10:29 AM MARBLE RUBBER) Hemoglobin 12.2 11.7 - 15.7 g/dL 05/17/2023 10:39 AM MARBLE RUBBER [facility] Blood BLOOD SPECIMEN / Unknown Venipuncture / Unknown 05/17/2023 10:29 AM MARBLE RUBBER 05/17/2023 10:29 AM MARBLE RUBBER Renee Bennett MD LAB - BLOOD ORDERABL ES [facility] [place] [facility] [address] [facility] Lab (no room number, 1st floor of clinic) [place] [address], [facility] [phone] * Ferritin (05/17/2023 10:29 AM MARBLE RUBBER) Ferritin 17 6 - 175 ng/mL 05/17/2023 8:27 PM MARBLE RUBBER [facility] Blood BLOOD SPECIMEN / Unknown Venipuncture / Unknown 05/17/2023 10:29 AM MARBLE RUBBER 05/17/2023 10:29 AM MARBLE RUBBER Renee Bennett MD LAB - BLOOD ORDERABL ES [facility] [place] [facility] [address] [facility], [address] [place] [address], [facility] [phone] from Last 3 Months Care Teams Bariatric Program Coordinator Relationship Specialty Start Date End Date Renee Bennett MD [address] [place] [phone] PCP - General Family Medicine 07/07/20 [place] [address] [place] [address] [phone] Assigned PCP 08/14/[address] [facility] [place] [address] [place] [address] Bowling Ball Finisher Dietitian, Registered 06/14/23
--- OUTSIDE RECORDS SUMMARY | 2023-07-21 13:57 | XMS_ITS ---
Author Name Unknown Organization [facility] Address [address] [place] [address] Care Team Providers Care Roper Operator Name Role Phone Unavailable Unavailable Unavailable Surgery Details Not on file Complications Check Surgery Details section. Procedure Estimated Blood Loss Check Surgery Details section. Procedure Findings Check Surgery Details section. Procedure Specimens Taken Check Surgery Details section.
--- OUTSIDE RECORDS SUMMARY | 2023-07-21 13:57 | XMS_ITS | Encounter Summary ---
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 Onset several weeks ago, but not feels like she has pain all day every day. Feels better with exercise. Sometimes hands feel tingly and feels warm with the pain. Encounter Details Date Type Department Care Team (Late st Contact Info) Description 09/17/2022 11:20 AM CDT - 09/17/2022 1:26 PM CDT Emergency [facility] [address] [place] [id number] Mark Mallory M.D. [address] [place] [address] Pain Chest (Primary Dx) Discharge Disposition: Home or Self Care Social History Tobacco Use Types Packs/Day Years Used Date Smoking Tobacco: Never Nutrition Answer Date Recorded Nutrition: EVOO Fat Source Unknown 10/29 Nutrition: Servings of Fruits/Vegetables per Day Not on file 10/29/2021 Dental Answer Date Recorded Dental: Regular Dentist Unknown 10/30/19 Sex and Gender Information Value Date Recorded Sex Assigned at Not on file Gender Identity Not on file Sexual Orientation Not on file documented as of this encounter Last Filed Vital Signs Vital Sign Reading [...] 3.2 oz) 09/17/2022 11:30 AM CDT Height - - Body Mass Index 23.89 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 30 capsule 1 10/30/2021 ibuprofen (ADVIL,MOTRIN) 600 mg tablet Take 1 tablet (600 mg total) by mouth every 6 (six) hours as needed for mild pain or score 1-3 of 10, moderate pain or score 4-6 of 10, severe pain or score 7-10 of 10, headaches or fever. 90 tablet 0 10/30/2021 omega 4-pxn-[id number]-fish oil 1,000 mg (120 mg-180 mg) capsule Take by mouth. 0 06/01/2018 documented as of this encounter ED Notes * Mark Mallory M.D. - 09/17/2022 12:27 PM CDT SUBJECTIVE CHIEF COMPLAINT/REASON FOR VISIT Chest Pain (27 yo presents for eval of persistant left sided chest pain. Onset several weeks ago, but not feels like she has pain all day every day. Feels better with exercise. Sometimes hands feel tingly and feels warm with the pain. ) HISTORY OF PRESENT ILLNESS Patient presents with atypical chest pain over the last month. It is nonexertional. In fact she tolerates exertion quite well and has been eating a very healthy diet. She denies any postprandial pain. She is no other constitutional symptoms. History provided by: Patient REVIEW OF SYSTEMS Constitutional: Negative. HENT: Negative. Eyes: Negative. Respiratory: Negative. Cardiovascular: Negative. Gastrointestinal: Negative. Genitourinary: Negative. Musculoskeletal: Negative. Skin: Negative. Neurological: Negative. Psychiatric/Behavioral: Negative. OBJECTIVE Initial Vitals Temperature 09/17/22 1129 37.3 ??C Pulse Rate 09/17/22 1130 91 Heart Rate 09/17/22 1130 91 Resp Rate 09/17/22 1130 19 Blood Pressure 09/17/22 1115 (!) 148/96 SpO2 09/17/22 1130 100 % Pain Score 09/17/22 1134 3 PHYSICAL EXAMINATION Constitutional: Nursing note and vitals reviewed. No distress. HENT: Head: Normocephalic and atraumatic. Nose: Nose normal. Mouth/Throat: Oropharynx is clear and moist. Eyes: EOM are normal. Neck: Neck supple. Cardiovascular: Normal rate, regular rhythm and normal heart sounds. Pulses are strong and palpable. Capillary refill: takes less than 3 seconds Pulmonary/Chest: Effort normal and breath sounds normal. Abdominal: Soft. Musculoskeletal: General: Normal range of motion. Cervical back: Neck supple. Neurological: Alert. Skin: Skin is warm and dry. Psychiatric: She has a normal mood and affect. ASSESSMENT/PLAN Assessment and Plan Fortunately the patient's troponin is within normal limits. Labs are unremarkable. Pain is highly atypical for ACS given her tolerance of exertion. There is nothing suggest pulmonary embolism nor infectious etiology. She will follow up with her primary care provider. DIFFERENTIAL DIAGNOSES Atypical ACS, chest wall pain, anxiety . I reviewed the following external records: inpatient records. Final Diagnoses: as of 09/17/22 1249 Pain Chest Mark Mallory M.D. 09/17/22 1447 documented in this encounter Plan of Treatment Not on file documented as of this encounter Procedures Procedure Name Priority Date/Time Associated Diagnosis Comments TROPONIN T, BASELINE, 5TH GEN, P STAT 09/17/2022 11:29 AM CDT CBC WITHOUT DIFFERENTIAL, B STAT 09/17/2022 11:29 AM CDT BASIC METABOLIC PANEL, S/P STAT 09/17/2022 11:29 AM CDT ECG STAT 09/17/2022 11:23 AM CDT documented in this encounter Results * Troponin T, Baseline, 5th gen (09/17/2022 11:29 AM CDT) Troponin T, Baseline, 5th gen <6 <=10 ng/L 09/17/2022 12:25 PM CDT NPRG Blood (Blood, Venous) 09/17/2022 11:29 AM CDT 09/17/2022 11:58 AM CDT Mark Mallory M.D. LAB BLOOD TROPONIN [facility] [address] [place] [address], [facility] NPR[facility] [address] [place] [address] * Basic Metabolic Panel (09/17/2022 11:29 AM CDT) Potassium, P 4.0 3.6 - 5.2 mmol/L 09/17/2022 12:12 PM CDT NPRG Sodium, P 138 135 - 145 mmol/L 09/17/2022 12:12 PM CDT NPRG Chloride, P 104 98 - 107 mmol/L 09/17/2022 12:12 PM CDT NPRG Bicarbonate, P 25 22 - 29 mmol/L 09/17/2022 12:12 PM CDT NPRG Anion Gap, P 9 7 - 15 09/17/2022 12:12 PM CDT NPRG BUN (Blood Urea Nitrogen), P 20 6 - 21 mg/dL 09/17/2022 12:12 PM CDT NPRG Creatinine 0.88 0.59 - 1.04 mg/dL 09/17/2022 12:12 PM CDT NPRG Estimated GFR (eGFR) >90 >=60 mL/min/BSA 09/17/2022 12:12 PM CDT NPRG Comment: Estimated GFR calculated using the 2020 CKD_EPI creatinine equation. Calcium, Total, P 9.8 8.6 - 10.0 mg/dL 09/17/2022 12:12 PM CDT NPRG Glucose, P 103 70 - 140 mg/dL 09/17/2022 12:12 PM CDT NPRG Blood (Blood, Venous) 09/17/2022 11:29 AM CDT 09/17/2022 11:58 AM CDT Mark Mallory M.D. LAB BLOOD ADD-ON [facility] [address] [place] [address], [facility] NPR[facility] [address] [place] [address] * CBC without Differential (09/17/2022 11:29 AM CDT) Hemoglobin 13.5 11.6 - 15.0 g/dL 09/17/2022 12:07 PM CDT NPRG Hematocrit 40.0 35.5 - 44.9 % 09/17/2022 12:07 PM CDT NPRG Erythrocytes 4.55 3.92 - 5.13 x10(12)/L 09/17/2022 12:07 PM CDT NPRG MCV 87.9 78.2 - 97.9 fL 09/17/2022 12:07 PM CDT NPRG RBC Distrib Width 12.7 12.2 - 16.1 % 09/17/2022 12:07 PM CDT NPRG Platelet Count 223 157 - 371 x10(9)/L 09/17/2022 12:07 PM CDT NPRG Leukocytes 6.9 3.4 - 9.6 x10(9)/L 09/17/2022 12:07 PM CDT NPRG Blood (Blood, Venous) 09/17/2022 11:29 AM CDT 09/17/2022 11:58 AM CDT Mark Mallory M.D. LAB BLOOD ADD-ON [facility] [address] [place] [address], [facility] NPR[facility] [address] [place] [address] * ECG 12 Lead (09/17/2022 11:23 AM CDT) Ventricular Rate ECG/Min 101 BPM MUSE LA Interval 146 ms MUSE QRSD Interval 78 ms MUSE QT Interval 320 ms MUSE QTC Interval 414 ms MUSE P [place] 79 degrees MUSE R [place] 53 degrees MUSE T Wave [place] 57 degrees MUSE 09/17/2022 11:2 3 AM CDT 09/17/2022 11:30 AM CDT Impressions MUSE - 09/17/2022 11:30 AM CDT Sinus tachycardia Otherwise normal ECG No previous ECGs available Reviewed by SHANNAN Christian Narrative Procedure Note Flakito Boyle Jr., M.D. - 09/17/2022 IMPRESSION: Sinus tachycardia Otherwise normal ECG No previous ECGs available Reviewed by SHANNAN Christian Mark Mallory M.D. 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
--- OUTSIDE RECORDS SUMMARY | 2023-07-21 13:57 | XMS_ITS | Clinical Summary ---
Author Name Unknown Organization [facility] Address [address] [place] [address] Care Team Providers Care Floating Derrick Operator Name Role Phone Renee Bennett MD Primary Care Provider [phone] Renee Bennett MD Unavailable [phone] Unavailable Allergies No known active allergies Medications Medication [...] me nstrual period of 11/16/2022 (Exact Date) Encounters Date Type Department Care Team Description 07/19/2023 4:40 PM DIRECTOR OF OUTPATIENT SERVICES Office Visit [address] [phone] Renee Bennett MD Encounter for supervision of other normal in third trimester (Primary Dx); 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 07/18/2023 4:00 PM DIRECTOR OF OUTPATIENT SERVICES Office Visit [facility] [place] [address] [facility] [address] [place] [phone] Jennifer Boyer MD Rauk, Phillip Neil, MD Insulin controlled gestational diabetes mellitus (GDM) in third trimester (Primary Dx) 07/18/2023 3:30 PM DIRECTOR OF OUTPATIENT SERVICES - 07/18/2023 11:59 PM DIRECTOR OF OUTPATIENT SERVICES Hospital Encounter [facility] [place] [address] [facility] [address] [place] [phone] Jennifer Boyer MD Rauk, Phillip Neil, MD Gestational diabetes mellitus (GDM) in third trimester controlled on oral hypoglycemic drug; Prior with demise and current in third trimester Discharge Disposition: Home or Self Care 07/18/2023 Travel 07/15/2023 12:15 PM DIRECTOR OF OUTPATIENT SERVICES Office Visit [facility] [place] [address] [facility] [address] [place] [address] Rosemary Cheema MD Insulin controlled gestational diabetes mellitus (GDM) in third trimester (Primary Dx); Prior with demise and current in third trimester 07/15/2023 11:40 AM DIRECTOR OF OUTPATIENT SERVICES - 07/15/2023 11:59 PM DIRECTOR OF OUTPATIENT SERVICES Hospital Encounter [facility] [place] [address] [facility] [address] [place] [address] Rosemary Cheema MD Gestational diabetes mellitus (GDM) in third trimester controlled on oral hypoglycemic drug; Prior with demise and current in third trimester Discharge Disposition: Home or Self Care 07/15/2023 8:40 AM DIRECTOR OF OUTPATIENT SERVICES Office Visit [address] [phone] Renee Bennett MD Encounter for supervision of other normal in second trimester (Primary Dx); Gestational diabetes mellitus (GDM), antepartum, gestational diabetes method of control unspecified 07/15/2023 Travel 07/14/2023 Travel 2023 8:30 AM DIRECTOR OF OUTPATIENT SERVICES Office Visit [facility] [place] [address] [facility] [address] [place] [address] Rayshawn Nunez MD Insulin controlled gestational diabetes mellitus (GDM) in third trimester (Primary Dx) 2023 8:00 AM DIRECTOR OF OUTPATIENT SERVICES - 2023 11:59 PM DIRECTOR OF OUTPATIENT SERVICES Hospital Encounter [facility] [place] [address] [facility] [address] [place] [address] Rayshawn Nunez MD Gestational diabetes mellitus (GDM) in third trimester controlled on oral hypoglycemic drug; Prior with demise and current in third trimester Discharge Disposition: Home or Self Care 2023 Travel 07/08/2023 4:10 PM DIRECTOR OF OUTPATIENT SERVICES - 07/08/2023 5:05 PM DIRECTOR OF OUTPATIENT SERVICES Hospital Encounter [facility] [address] [place] [address] Renee Bennett MD Discharge Disposition: Home or Self Care 07/08/2023 Travel 07/08/2023 Telephone [facility] [place] [address] [facility] [address] [place] [phone] Chyna Garcia RN Decreased Movement 07/08/2023 Telephone [facility] [place] [address] [facility] [address] [place] [phone] Chyna Garcia RN Decreased Movement 07/06/2023 4:00 PM DIRECTOR OF OUTPATIENT SERVICES Office Visit [facility] [place] [address] [facility] [address] [place] [phone] Tyshawn Mccurdy MD Gestational diabetes mellitus (GDM) in third trimester controlled on oral hypoglycemic drug (Primary Dx); Prior with demise and current in third trimester 07/06/2023 3:30 PM DIRECTOR OF OUTPATIENT SERVICES - 07/06/2023 11:59 PM DIRECTOR OF OUTPATIENT SERVICES Hospital Encounter [facility] [place] [address] [facility] [address] [place] [phone] Tyshawn Mccurdy MD Gestational diabetes mellitus (GDM) in third trimester controlled on oral hypoglycemic drug; Prior with demise and current in third trimester Discharge Disposition: Home or Self Care 07/06/2023 Travel 07/04/2023 4:00 PM DIRECTOR OF OUTPATIENT SERVICES Office Visit [facility] [place] [address] [facility] [address] [place] [phone] Rosemary Cheema MD Gestational diabetes mellitus (GDM) in third trimester controlled on oral hypoglycemic drug (Primary Dx) 07/04/2023 3:15 PM DIRECTOR OF OUTPATIENT SERVICES - 07/04/2023 11:59 PM DIRECTOR OF OUTPATIENT SERVICES Hospital Encounter [facility] [place] [address] [place] [address] Rosemary Cheema MD Gestational diabetes mellitus (GDM) in third trimester controlled on oral hypoglycemic drug; Prior with demise and current in third trimester Discharge Disposition: Home or Self Care 07/04/2023 8:20 AM DIRECTOR OF OUTPATIENT SERVICES Office Visit [address] [phone] Renee Bennett MD Encounter for supervision of other normal in second trimester (Primary Dx); Gestational diabetes mellitus (GDM), antepartum, gestational diabetes method of control unspecified; History of stillbirth 07/04/2023 Travel 07/03/2023 Travel 07/01/2023 8:30 AM DIRECTOR OF OUTPATIENT SERVICES Office Visit [facility] [place] [address] [place] [address] Jennifer Boyer MD Gestational diabetes mellitus (GDM) in third trimester controlled on oral hypoglycemic drug (Primary Dx); Prior with demise and current in third trimester 07/01/2023 7:54 AM DIRECTOR OF OUTPATIENT SERVICES - 07/01/2023 11:59 PM DIRECTOR OF OUTPATIENT SERVICES Hospital Encounter [facility] [place] [address] [place] [phone] Jennifer Boyer MD related condition, antepartum Discharge Disposition: Home or Self Care 07/01/2023 Travel 06/22/2023 PRE VISIT [facility] [place] [address] [place] [phone] Violette Zhou RN Ultrasound (L2-GDM) 06/21/2023 10:20 AM DIRECTOR OF OUTPATIENT SERVICES Office Visit [address] [phone] Renee Bennett MD Gestational diabetes mellitus (GDM), antepartum, gestational diabetes method of control unspecified (Primary Dx) 06/21/2023 Transcribe Orders [facility] [place] [address] [facility] [address] [place] [phone] Renee Bennett MD related condition, antepartum (Primary Dx) 06/21/2023 Travel 06/14/2023 10:45 AM DIRECTOR OF OUTPATIENT SERVICES Virtual Visit [facility] [place] [address] [place] [address] LORRI Currie [phone] Gestational diabetes mellitus (GDM), antepartum, gestational diabetes method of control unspecified 06/14/2023 Travel 06/10/[address] [address] Unknown, Provider Referral (No available appts for classes virtually for expected time of the referral) 06/03/2023 8:00 AM DIRECTOR OF OUTPATIENT SERVICES Office Visit [address] [phone] Renee Bennett MD , unspecified gestational age (Primary Dx); Varicose veins during ; Gestational diabetes mellitus (GDM), antepartum, gestational diabetes method of control unspecified 06/03/2023 Travel 05/31/2023 8:00 AM DIRECTOR OF OUTPATIENT SERVICES Lab [facility] [address] [place] [phone] Elevated glucose 05/31/2023 Travel 05/17/2023 9:20 AM DIRECTOR OF OUTPATIENT SERVICES Office Visit [address] [phone] Renee Bennett MD Encounter for supervision of other normal in second trimester (Primary Dx); Elevated glucose 05/17/2023 Travel from Last 3 Months Immunizations Name Administration Dates Next Due RSV Vaccine (Abrysvo) 07/15/2023 TDAP (Adacel,Boostrix) 07/04/2023 Family History Medical History Relation Comments Asthma Brother 1 Asthma Brother 2 No Known Problems Brother 3 Heart Disease Father Diabetes Maternal Grandfather Breast Cancer Maternal Grandmother No Known Problems Mother Cerebrovascular Disease Paternal Grandfather No Known Problems Sister 1 No Known Problems Sister 2 No Known Problems Son 1 No Known Problems Son 2 No Known Problems Son 3 Colon Cancer No family hx of Coronary Artery Disease No family hx of Relation Status Comments Brother 1 Alive Brother 2 Alive Brother 3 Alive Father Alive Maternal Grandfather Maternal Grandmother Mother Alive Paternal Grandfather Paternal Grandmother Alive Sister 1 Alive Sister 2 Alive Son 1 Alive Son 2 Alive Son 3 Alive Social History Tobacco Use Types Packs/Day Years [...] Comments Blood Pressure 110/58 07/19/2023 4:36 PM DIRECTOR OF OUTPATIENT SERVICES Pulse 92 07/19/2023 4:36 PM DIRECTOR OF OUTPATIENT SERVICES Temperature 36.1 ??C (97 ??F) 07/19/2023 4:36 PM DIRECTOR OF OUTPATIENT SERVICES Respiratory Rate 16 07/15/2023 8:48 AM DIRECTOR OF OUTPATIENT SERVICES Oxygen Saturation 97% 07/19/2023 4:36 PM DIRECTOR OF OUTPATIENT SERVICES Inhaled Oxygen Concentration - - Weight 82.1 kg (181 lb) 07/19/2023 4:36 PM DIRECTOR OF OUTPATIENT SERVICES Height 174 cm (5' 8.5) 07/15/2023 8:48 AM DIRECTOR OF OUTPATIENT SERVICES Body Mass Index 27.12 07/15/2023 8:48 AM DIRECTOR OF OUTPATIENT SERVICES Plan of Treatment Upcoming Encounters Date Type Department Care Team (Late st Contact Info) Description 07/22/2023 8:45 AM DIRECTOR OF OUTPATIENT SERVICES Appointment [facility] [place] [address] [facility] [address] [place] [phone] Sheila Jones MD [address] [place] [address] 07/22/2023 9:15 AM DIRECTOR OF OUTPATIENT SERVICES Office Visit [facility] [place] [address] [place] [phone] Sheila Jones MD [address] [place], [place] [phone] 07/26/2023 8:00 AM DIRECTOR OF OUTPATIENT SERVICES Appointment [facility] [place] [address] [place] [phone] Jennifer Boyer MD [address] [place], [place] [address] Rayshawn Nunez MD [address] [place] [address] 07/26/2023 8:30 AM DIRECTOR OF OUTPATIENT SERVICES Office Visit [facility] [place] [address] [facility] [address] [place] [address] Jennifer Boyer MD [address] [place] [address] Rayshawn Nunez MD [address] [place] [address] 07/29/2023 8:00 AM DIRECTOR OF OUTPATIENT SERVICES Office Visit [address] [phone] Renee Bennett MD [address] [place] [address] 07/29/2023 11:45 AM DIRECTOR OF OUTPATIENT SERVICES Appointment [facility] [place] [address] [facility] [address] [place] [phone] Jennifer Boyer MD [address] [place] [address] 07/29/2023 12:15 PM DIRECTOR OF OUTPATIENT SERVICES Office Visit [facility] [place] [address] [facility] [address] [place] [address] Jennifer Boyer MD [address] [place] [address] 08/05/2023 8:00 AM DIRECTOR OF OUTPATIENT SERVICES Office Visit [address] [phone] [place] [address] [place] [phone] 08/23/2023 Hospital Encounter [facility] [address] [place] [phone] [place] [address] [place] [phone] Health Maintenance Due Date Last Done Comments ADVANCE CARE PLANNING 1995 YEARLY PREVENTIVE VISIT 1995 COVID-19 Vaccine (#1) 01/10/1996 HEPATITIS C SCREENING 2013 MATERNAL SCREENING DISCUSSION 01/25/2023 INFLUENZA VACCINE (#1) 2023 REPEAT ANTIBODY SCREEN (OB) 05/31/2023 02/10/2023 GROUP B STREP SCREENING 07/26/2023 ANNUAL REVIEW OF HM ORDERS 01/05/2024 01/04/2023, PAP 02/10/2026 02/10/2023, 02/10/2023 DTAP/TDAP/TD IMMUNIZATION (2 - Td or Tdap) 07/04/2033 07/04/2023 CHLAMYDIA SCREENING Discontinued 02/10/2023, 02/10/2023, 02/10/2023, Additional history exists HIV SCREENING Completed 02/10/2023 OBGCT (OB) Completed 05/31/2023, 05/17/2023 PHQ-2 (once per calendar year) Completed 07/15/2023, 07/04/2023, 05/17/2023, Additional history exists RSV VACCINE ( & 60+) Completed 07/15/2023 HEPATITIS B IMMUNIZATION Discontinued HPV IMMUNIZATION Aged Out No longer e ligible based on patient's age to complete this topic IPV IMMUNIZATION Aged Out No longer e ligible based on patient's age to complete this topic MENINGITIS IMMUNIZATION Aged Out No l onger eligible based on patient's age to complete this topic Pneumococcal Vaccine: Pediatrics (0 to 5 Years) and At-Risk Patients (6 to 64 Years) Aged Out No longer eligible based on patient's age to complete this topic RSV MONOCLONAL ANTIBODY Aged Out No l onger eligible based on patient's age to complete this topic Procedures Procedure Name Priority Date/Time Associated Diagnosis Comments GLUCOSE ALBUMIN OB URINE Routine 07/19/2023 4:28 PM DIRECTOR OF OUTPATIENT SERVICES Encounter for supervision of other normal in third trimester [facility] Routine 07/18/2023 3:55 PM DIRECTOR OF OUTPATIENT SERVICES Gestational diabetes mellitus (GDM) in third trimester controlled on oral hypoglycemic drug Prior with demise and current in third trimester [facility] Routine 07/15/2023 12:07 PM DIRECTOR OF OUTPATIENT SERVICES Gestational diabetes mellitus (GDM) in third trimester controlled on oral hypoglycemic drug Prior with demise and current in third trimester GLUCOSE ALBUMIN OB URINE Routine 07/15/2023 8:30 AM DIRECTOR OF OUTPATIENT SERVICES Encounter for supervision of other normal in second trimester [facility] Routine 2023 8:41 AM DIRECTOR OF OUTPATIENT SERVICES Gestational diabetes mellitus (GDM) in third trimester controlled on oral hypoglycemic drug Prior with demise and current in third trimester NON-STRESS TEST - HIM SCAN 07/08/2023 12:00 AM DIRECTOR OF OUTPATIENT SERVICES [facility] Routine 07/06/2023 3:49 PM DIRECTOR OF OUTPATIENT SERVICES Gestational diabetes mellitus (GDM) in third trimester controlled on oral hypoglycemic drug Prior with demise and current in third trimester [facility] Routine 07/04/2023 3:38 PM DIRECTOR OF OUTPATIENT SERVICES Gestational diabetes mellitus (GDM) in third trimester controlled on oral hypoglycemic drug Prior with demise and current in third trimester BETA 2 GLYCOPROTEIN ANTIBODIES IGG IGM Routine 07/04/2023 9:42 AM DIRECTOR OF OUTPATIENT SERVICES History of stillbirth CARDIOLIPIN BRENDEN IGG AND IGM Routine 07/04/2023 9:42 AM DIRECTOR OF OUTPATIENT SERVICES History of stillbirth LUPUS ANTICOAGULANT PANEL Routine 07/04/2023 9:42 AM DIRECTOR OF OUTPATIENT SERVICES History of stillbirth GLUCOSE ALBUMIN OB URINE Routine 07/04/2023 8:20 AM DIRECTOR OF OUTPATIENT SERVICES Encounter for supervision of other normal in second trimester [facility] Routine 07/01/2023 8:44 AM DIRECTOR OF OUTPATIENT SERVICES related condition, antepartum GLUCOSE ALBUMIN OB URINE Routine 06/03/2023 8:42 AM DIRECTOR OF OUTPATIENT SERVICES , unspecified gestational age GESTATIONAL GLUCOSE TOLERANCE TESTING, 3 HOUR Routine 05/31/2023 11:21 AM DIRECTOR OF OUTPATIENT SERVICES Elevated glucose GESTATIONAL GLUCOSE TOLERANCE TESTING, 2 HOUR Routine 05/31/2023 10:14 AM DIRECTOR OF OUTPATIENT SERVICES Elevated glucose GESTATIONAL GLUCOSE TOLERANCE TESTING, 1 HOUR Routine 05/31/2023 9:17 AM DIRECTOR OF OUTPATIENT SERVICES Elevated glucose GESTATIONAL GLUCOSE TOLERANCE TESTING, 3 HOUR Routine 05/31/2023 8:00 AM DIRECTOR OF OUTPATIENT SERVICES Elevated glucose GESTATIONAL GLUCOSE TOLERANCE TESTING, FASTING Routine 05/31/2023 8:00 AM DIRECTOR OF OUTPATIENT SERVICES Elevated glucose GLUCOSE ALBUMIN OB URINE Routine 05/17/2023 1:19 PM DIRECTOR OF OUTPATIENT SERVICES Encounter for supervision of other normal in second trimester GLUCOSE TOLERANCE GEST SCREEN 1 HOUR Routine 05/17/2023 10:39 AM DIRECTOR OF OUTPATIENT SERVICES Encounter for supervision of other normal in second trimester FERRITIN Routine 05/17/2023 10:29 AM DIRECTOR OF OUTPATIENT SERVICES Encounter for supervision of other normal in second trimester OB HEMOGLOBIN Routine 05/17/2023 10:29 AM DIRECTOR OF OUTPATIENT SERVICES Encounter for supervision of other normal in second trimester TSH WITH FREE T4 REFLEX Routine 05/17/2023 10:29 AM DIRECTOR OF OUTPATIENT SERVICES Encounter for supervision of other normal in second trimester VITAMIN D DEFICIENCY SCREENING Routine 05/17/2023 10:29 AM DIRECTOR OF OUTPATIENT SERVICES Encounter for supervision of other normal in second trimester from Last 3 Months Results * Glucose and albumin, OB urine (07/19/2023 4:28 PM DIRECTOR OF OUTPATIENT SERVICES) Only the most recent of5 resultswithin the time period is included. Protein Albumin Urine Negative Negative mg/dL 07/19/2023 4:30 PM DIRECTOR OF OUTPATIENT SERVICES [facility] Glucose Urine Negative Negative mg/dL 07/19/2023 4:30 PM DIRECTOR OF OUTPATIENT SERVICES [facility] Urine MID-STREAM URINE SPECIMEN / Unknown Non-blood Collection / Unknown 07/19/2023 4:28 PM DIRECTOR OF OUTPATIENT SERVICES 07/19/2023 4:28 PM DIRECTOR OF OUTPATIENT SERVICES Renee Bennett MD LAB - URINE ORDERABL ES [facility] [address] [place] [address] Lab (no room number, 1st floor of clinic) [place] [address], [facility] [phone] * Maternal BPP Single (07/18/2023 3:55 PM DIRECTOR OF OUTPATIENT SERVICES) Only the most recent of5 resultswithin the time period is included. Anatomical Region Laterality Modality Ultrasound 07/18/2023 3:34 PM DIRECTOR OF OUTPATIENT SERVICES Impressions 07/18/2023 3:57 PM DIRECTOR OF OUTPATIENT SERVICES IMPRESSION ----- 1) Normal amniotic fluid volume. 2) BPP is reassuring. Narrative 07/18/2023 3:57 PM DIRECTOR OF OUTPATIENT SERVICES ?BPP ----- Pat. Name: YU LOGAN ? Study Date: ??07/18/2023 3:34pm Pat. NO: ??[id number] ?Referring ??MD: RENEE BENNETT Site: ??[facility] ? Assistant Store Manager Sales: Kirstin Gold [facility] : ??1995 ?Age: ?? 28 ----- INDICATION [...] - 07/18/2023 BPP ----- Pat. Name: YU LOGAN Study Date: 07/18/2023 3:34pm Pat. NO: [id number] Referring MD: RENEE BENNETT Site: [facility] Assistant Store Manager Sales: Kirstin Gold RDMS : 1995 Age: 28 [...] 2) BPP is reassuring. Jennifer Boyer MD IMG MF US ORDERAB LES * NON-STRESS TEST - HIM SCAN (07/08/2023 12:00 AM DIRECTOR OF OUTPATIENT SERVICES) 07/08/2023 Provider Outside PROCEDURES * Cardiolipin Brenden IgG and IgM (07/04/2023 9:42 AM DIRECTOR OF OUTPATIENT SERVICES) Cardiolipin Brenden IgG Instrument Value <2.0 <10.0 GPL-U/mL 07/06/2023 11:27 AM DIRECTOR OF OUTPATIENT SERVICES [facility]END O Cardiolipin Antibody IgG Negative Negative 07/06/2023 11:27 AM DIRECTOR OF OUTPATIENT SERVICES [facility]PROT[facility]END O Cardiolipin Brenden IgM Instrument Value 2.2 <10.0 MPL-U/mL 07/06/2023 11:27 AM DIRECTOR OF OUTPATIENT SERVICES [facility]END O Cardiolipin Antibody IgM Negative Negative 07/06/2023 11:27 AM DIRECTOR OF OUTPATIENT SERVICES [facility] Blood BLOOD SPECIMEN / Unknown Venipuncture / Unknown 07/04/2023 9:42 AM DIRECTOR OF OUTPATIENT SERVICES 07/04/2023 9:43 AM DIRECTOR OF OUTPATIENT SERVICES Renee Bennett MD LAB - BLOOD ORDERABL ES [facility]/PROT/ENDO [facility]Prot/Endo [address] [facility] [address] [facility], [address] [phone] * Beta 2 Glycoprotein Antibodies IGG IGM (07/04/2023 9:42 AM DIRECTOR OF OUTPATIENT SERVICES) Beta 2 Glycoprotein 1 Antibody IgG 1.0 <7.0 U/mL 07/06/2023 11:27 AM DIRECTOR OF OUTPATIENT SERVICES [facility]END O Comment:Negative Beta 2 Glycoprotein 1 Antibody IgM 3.3 <7.0 U/mL 07/06/2023 11:27 AM DIRECTOR OF OUTPATIENT SERVICES [facility]PROT[facility]END O Comment:Negative Blood BLOOD SPECIMEN / Unknown Venipuncture / Unknown 07/04/2023 9:42 AM DIRECTOR OF OUTPATIENT SERVICES 07/04/2023 9:43 AM DIRECTOR OF OUTPATIENT SERVICES Renee Bennett MD LAB - BLOOD ORDERABL ES [facility]/PROT/ENDO [facility]/Prot/Endo [address] [facility] [address] [facility], [address] [phone] * Lupus Anticoagulant Panel (07/04/2023 9:42 AM DIRECTOR OF OUTPATIENT SERVICES) INR 1.04 0.85 - 1.15 4 4:15 PM DIRECTOR OF OUTPATIENT SERVICES [facility] Thrombin Time 17.0 13.0 - 19.0 Seconds 4 4:15 PM DIRECTOR OF OUTPATIENT SERVICES [facility] PTT Ratio 0.97 <1.21 4 4:15 PM DIRECTOR OF OUTPATIENT SERVICES [facility] DRVVT Screen Ratio 0.91 <1.08 4 4:15 PM DIRECTOR OF OUTPATIENT SERVICES [facility] Lupus Result Negative Negative 4:15 PM DIRECTOR OF OUTPATIENT SERVICES [facility] Lupus Interpretation The INR is normal. APTT ratio is normal. ?? DRVVT Screen ratio is normal. Thrombin time is normal. NEGATIVE TEST; A LUPUS ANTICOAGULANT WAS NOT DETECTED IN THIS SPECIMEN WITHIN THE LIMITS OF THE TESTING REPERTOIRE. If the clinical picture is strongly suggestive of an antiphospholipid syndrome, recommend anticardiolipin and tbkw-2-sfxtsloewqo n (IgG and IgM) antibody tests. Salina James MD, PhD [facility] 4 4:15 PM DIRECTOR OF OUTPATIENT SERVICES [facility] Blood BLOOD SPECIMEN / Unknown Venipuncture / Unknown 07/04/2023 9:42 AM DIRECTOR OF OUTPATIENT SERVICES 07/04/2023 9:43 AM DIRECTOR OF OUTPATIENT SERVICES Renee Bennett MD LAB - BLOOD ORDERABL ES [facility] [address] [facility] [address] [facility], [address] [phone] [phone] * MFM US Comprehensive Single (07/01/2023 8:44 AM DIRECTOR OF OUTPATIENT SERVICES) Anatomical Region Laterality Modality Ultrasound 07/01/2023 7:55 AM DIRECTOR OF OUTPATIENT SERVICES Impressions 07/01/2023 10:53 AM DIRECTOR OF OUTPATIENT SERVICES IMPRESSION ----- 1) [place] intrauterine at 32w [...] BPP was reassuring. Narrative 07/01/2023 10:53 AM DIRECTOR OF OUTPATIENT SERVICES ?Comprehensive ----- Pat. Name: JUAN LOGANA ? Study Date: ??07/01/2023 7:55am Pat. NO: ??[id number] ?Referring ??: RENEE BENNETT Site: ??[facility] ? Assistant Store Manager Sales: Kirstin Gold RDMS : ??1995 ?Age: ?? [...] 4 lb 5 ?oz EFW by ?Hadlock ([id number]) Head / Face / Neck Biometry: Histopathology Technician ? 6.3 ? mm CM ?8.5 ? [...] vena cava. Inferior vena cava. 3-vessel view. 3-cpjovo-krmxreu view. ? Cardiac position. Cardiac size. Cardiac [...] the patient (reviewing medical records/tests), in direct [id number] contact with the patient during her visit with the majority spent counseling and discussing the plan of care and documenting the visit in the electronic medical record. Please see note for details. Procedure Note Jennifer Boyer MD - 07/01/2023 Comprehensive ----- Pat. Name: YU LOGAN Study Date: 07/01/2023 7:55am Pat. NO: [id number] Referring MD: RENEE BENNETT Site: [facility] Assistant Store Manager Sales: Kirstin Gold RDMS : 1995 Age: 27 [...] 4 lb 5 oz EFW by [employer] ([id number]) Head / Face / Neck Biometry: Histopathology Technician 6.3 mm CM 8.5 mm ANATOMY ----- The following structures appear normal: Head / Neck Cranium. Head size. Head shape.Lateral ventricles. Choroid plexus. Midline falx. Cavum septi pellucidi.Cerebellum. Cisterna magna. Parenchyma. Thalami. Vermis. Neck. Face Lips. Heart / Thorax 4-chamber view. RVOT view. LVOT view.Situs. Bicaval view. Superior vena cava. Inferior vena cava. 3-vesselview. 1-rmohwl-unyrvmc view. Cardiac position. Cardiac size.Cardiac rhythm. Right [...] see the patient (reviewing medical records/tests), in [id number]-[id number] contact with the patient during her visit [...] The BPP was reassuring. Renee Bennett MD [facility] ORDERABLE S * Gestational Glucose Tolerance Testing, 3 Hour (05/31/2023 11:21 AM DIRECTOR OF OUTPATIENT SERVICES) Gestational GTT 3 Hr Post Dose 110 60 - 139 mg/dL 06/02/2023 12:14 AM DIRECTOR OF OUTPATIENT SERVICES [facility] Blood BLOOD SPECIMEN / Unknown Venipuncture / Unknown 05/31/2023 11:21 AM DIRECTOR OF OUTPATIENT SERVICES 05/31/2023 11:21 AM DIRECTOR OF OUTPATIENT SERVICES Narrative [facility] - 06/02/2023 12:14 AM DIRECTOR OF OUTPATIENT SERVICES Blood glucose levels collected at fasting, 1 [...] LAB - BLOOD ORDERABL ES [facility] Core Lab [address], [address] [place] [address], [facility] [phone] * (ABNORMAL) Gestational Glucose Tolerance Testing, 2 Hour (05/31/2023 10:14 AM DIRECTOR OF OUTPATIENT SERVICES) Gestational GTT 2 Hr Post Dose 218(H) 60 - 154 mg/dL 06/01/2023 2:26 PM DIRECTOR OF OUTPATIENT SERVICES [facility] Blood BLOOD SPECIMEN / Unknown Venipuncture / Unknown 05/31/2023 10:14 AM DIRECTOR OF OUTPATIENT SERVICES 05/31/2023 10:14 AM DIRECTOR OF OUTPATIENT SERVICES Renee Bennett MD LAB - BLOOD ORDERABL ES UR [facility] Lab [address] [facility], [address] [place] [address], [place] [phone] * (ABNORMAL) Gestational Glucose Tolerance Testing, 1 Hour (05/31/2023 9:17 AM DIRECTOR OF OUTPATIENT SERVICES) Gestational GTT 1 Hr Post Dose 192(H) 60 - 179 mg/dL 05/31/2023 5:31 PM DIRECTOR OF OUTPATIENT SERVICES [facility] Blood BLOOD SPECIMEN / Unknown Venipuncture / Unknown 05/31/2023 9:17 AM DIRECTOR OF OUTPATIENT SERVICES 05/31/2023 9:17 AM DIRECTOR OF OUTPATIENT SERVICES Renee Bennett MD LAB - BLOOD ORDERABL ES [facility] [place] Core Lab [address], [address] [phone], [facility] [phone] * (ABNORMAL) Gestational Glucose Tolerance Testing, Fasting (05/31/2023 8:00 AM DIRECTOR OF OUTPATIENT SERVICES) Gestational GTT Fasting 123(H) 60 - 94 mg/dL 05/31/2023 7:28 PM DIRECTOR OF OUTPATIENT SERVICES [facility] Blood BLOOD SPECIMEN / Unknown Venipuncture / Unknown 05/31/2023 8:00 AM DIRECTOR OF OUTPATIENT SERVICES 05/31/2023 8:06 AM DIRECTOR OF OUTPATIENT SERVICES Renee Bennett MD LAB - BLOOD ORDERABL ES [facility] Core Lab [address], [address] [address], [facility] [phone] * (ABNORMAL) Glucose tolerance gest screen 1 hour (05/17/2023 10:39 AM DIRECTOR OF OUTPATIENT SERVICES) Glu Gest Screen 1hr 50g 142(H) 70 - 129 mg/dL 05/17/2023 10:56 AM DIRECTOR OF OUTPATIENT SERVICES [facility] Blood BLOOD SPECIMEN / Unknown Venipuncture / Unknown 05/17/2023 10:39 AM DIRECTOR OF OUTPATIENT SERVICES 05/17/2023 10:39 AM DIRECTOR OF OUTPATIENT SERVICES Narrative [facility] - 05/17/2023 10:56 AM DIRECTOR OF OUTPATIENT SERVICES This is a screening test for Gestational Diabetes Mellitus. If results are 130 mg/dL or greater, a Standard 100 gram Gestational ??3 hour Glucose Tolerance should be performed. Renee Bennett MD LAB - BLOOD ORDERABL ES LABORATORY [facility] Lab [address] [facility] (no room number, 1st floor of clinic) [place] [phone], [facility] [phone] * Vitamin D Deficiency (05/17/2023 10:29 AM DIRECTOR OF OUTPATIENT SERVICES) Vitamin D, Total (25-Hydroxy) 45 20 - 50 ng/mL 05/17/2023 8:59 PM DIRECTOR OF OUTPATIENT SERVICES [facility] Comment:optimum levels Blood BLOOD SPECIMEN / Unknown Venipuncture / Unknown 05/17/2023 10:29 AM DIRECTOR OF OUTPATIENT SERVICES 05/17/2023 10:29 AM DIRECTOR OF OUTPATIENT SERVICES Narrative [facility] - 05/17/2023 8:59 PM DIRECTOR OF OUTPATIENT SERVICES Season, race, dietary intake, and treatment affect the concentration of 54-njbfdmw-Ljqqndg D. Values may decrease during winter months and increase during summer months. Vitamin D determination is routinely performed by an immunoassay specific for 25 hydroxyvitamin D3. ??If an individual is on vitamin D2(ergocalciferol) supplementation, please specify 25 [place] vitamin D2 and D3 level determination by LCMSMS test VITD23. Renee Bennett MD LAB - BLOOD ORDERABL ES [facility] [place] [facility] Lab [address], [address] [address], [facility] [phone] * TSH with free T4 reflex (05/17/2023 10:29 AM DIRECTOR OF OUTPATIENT SERVICES) TSH 1.00 0.30 - 4.20 uIU/mL 05/17/2023 8:59 PM DIRECTOR OF OUTPATIENT SERVICES [facility] Blood BLOOD SPECIMEN / Unknown Venipuncture / Unknown 05/17/2023 10:29 AM DIRECTOR OF OUTPATIENT SERVICES 05/17/2023 10:29 AM DIRECTOR OF OUTPATIENT SERVICES Renee Bennett MD LAB - BLOOD ORDERABL ES [facility] [place] [facility] Lab [address], [address] [place] [address], [facility] [phone] * OB hemoglobin (05/17/2023 10:29 AM DIRECTOR OF OUTPATIENT SERVICES) Hemoglobin 12.2 11.7 - 15.7 g/dL 05/17/2023 10:39 AM DIRECTOR OF OUTPATIENT SERVICES [facility] Blood BLOOD SPECIMEN / Unknown Venipuncture / Unknown 05/17/2023 10:29 AM DIRECTOR OF OUTPATIENT SERVICES 05/17/2023 10:29 AM DIRECTOR OF OUTPATIENT SERVICES Renee Bennett MD LAB - BLOOD ORDERABL ES [facility] [address] [facility] Lab (no room number, 1st floor of clinic) [place] [address], [facility] [phone] * Ferritin (05/17/2023 10:29 AM DIRECTOR OF OUTPATIENT SERVICES) Ferritin 17 6 - 175 ng/mL 05/17/2023 8:27 PM DIRECTOR OF OUTPATIENT SERVICES [facility] Blood BLOOD SPECIMEN / Unknown Venipuncture / Unknown 05/17/2023 10:29 AM DIRECTOR OF OUTPATIENT SERVICES 05/17/2023 10:29 AM DIRECTOR OF OUTPATIENT SERVICES Renee Bennett MD LAB - BLOOD ORDERABL ES [facility] [place] [facility] Lab [address], [address] [address], [facility] [phone] from Last 3 Months Care Teams Floating Derrick Operator Relationship Specialty [place] [address] [place] [id number] PCP - General Family Medicine 07/07/20 [place] [address] [place] [address] [id number] Assigned PCP 08/14/[address] [place] [address] [place] [address] Medical Operations Supervisor Dietitian, Registered 06/14/23
--- OUTSIDE RECORDS SUMMARY | 2023-07-21 13:58 | XMS_ITS | Encounter Summary ---
Author Name Unknown Organization [place] Address [address] [facility] [place] [address] Care Team Providers Care Carton Inspector Name Role Phone Laureano Bennett MD Primary Care Provider [phone] Laureano Bennett MD Unavailable [phone] Unavailable [phone] Encounter Details Date Type Department Care Team (Latest Contact Info) Description 2023 Travel Social History Tobacco Use Types Packs/Day Years Used Date Smoking Tobacco: Never Smokeless Tobacco: Never Alcohol Use Standard Drinks/Week Comments Not Currently 0 (1 standard drink = 0.6 oz pur e alcohol) PHQ-2 Answer Date Recorded PHQ-2 Score 0 07/04/2023 Adolescent Education Answer Date Record ed Getting [...] getting things that you need? No 06/14/2023 Estimated Date of Delivery Comme nts Yes 08/23/2023 Based on last me nstrual period of 11/16/2022 (Exact Date) Sex and Gender Information Value Date Recorded Sex Assigned at Not on file Gender Identity Not on file Sexual Orientation Not on file documented as of this encounter Plan of Treatment Upcoming Encounters Date Type Department Care Team (Late st Contact Info) Description 07/22/2023 8:45 AM NEIGHBORHOOD COORDINATOR Appointment [facility] Maternal Medicine [place] [address] [facility] [facility] [address] [place] [phone] Sheila Jones MD [address] [place], [place] [phone] 07/22/2023 9:15 AM NEIGHBORHOOD COORDINATOR Office Visit [facility] Maternal Medicine [place] [address] [address] [facility] [address] [place] [phone] Sheila Jones MD [address] [place], [place] [address] 07/26/2023 8:00 AM NEIGHBORHOOD COORDINATOR Appointment [facility] Maternal Medicine [place] [address] [address] [facility] [address] [place] [phone] Jennifer Boyer MD [address] [place], [place] 4[address] Rayshawn Nunez MD [address] [place], [place] [address] 07/26/2023 8:30 AM NEIGHBORHOOD COORDINATOR Office Visit [facility] Maternal Medicine [place] [address] [address] [facility] [address] [place] [phone] Jennifer Boyer MD [address] [place], [place] [address] Rayshawn Nunez MD [address] [place] [address] 07/29/2023 8:00 AM NEIGHBORHOOD COORDINATOR Office Visit [address] [phone] Laureano Bennett MD [address] [place] [address] [phone] 07/29/2023 11:45 AM NEIGHBORHOOD COORDINATOR Appointment [facility] Maternal Medicine [facility] [address] [facility] [address] [place] [phone] Jennifer Boyer MD [address] [place] [address] 07/29/2023 12:15 PM NEIGHBORHOOD COORDINATOR Office Visit [facility] Maternal Medicine [facility] [address] [facility] [address] [place] [phone] Jennifer Boyer MD [address] [place] [address] 08/05/2023 8:00 AM NEIGHBORHOOD COORDINATOR Office Visit [address] [phone] Laureano Bennett MD [address] [place] [address] [phone] 08/23/2023 Hospital Encounter [facility] [address] [place] [phone] Laureano Bennett MD [address] [place] [address] [phone] documented as of this encounter Visit Diagnoses Not on filedocumented in this encounter Additional Health Concerns Assessment Noted Time PHQ-9 Depression Total Score: 0 05/17/20 23 9:06 AM NEIGHBORHOOD COORDINATOR documented as of this encounter Care Teams Carton Inspector Relationship Specialty [place] [address] [place] [address] [phone] PCP - General Family Medicine 07/07/20 Laureano Bennett MD [address] [place] [address] [phone] Assigned PCP 08/14/[address] [place] [address] Transportation Consultant Dietitian, Registered 06/14/23 documented as of this encounter
--- OUTSIDE RECORDS SUMMARY | 2023-07-21 13:58 | XMS_ITS | Encounter Summary ---
Author Name Unknown Organization [place] Address [address] [facility] [place] [address] Care Team Providers Care Clinical Documentation Spec Name Role Phone Laureano Bennett MD Primary Care Provider [phone] Laureano Bennett MD Unavailable [phone] Unavailable [phone] Encounter Details Date Type Department Care Team (Latest Contact Info) Description 07/08/2023 Travel Social History Tobacco Use Types Packs/Day [...] st Contact Info) Description 07/22/2023 8:45 AM STATISTICAL PROGRAMMER Appointment [facility] Maternal Medicine [place] [address] [address] [facility] [address] [place] [phone] Sheila Jones MD [address] [place], [place] [address] 07/22/2023 9:15 AM STATISTICAL PROGRAMMER Office Visit [facility] Maternal Medicine [place] [address] [address] [facility] [address] [place] [phone] Sheila Jones MD [address] [place], [place] [address] 07/26/2023 8:00 AM STATISTICAL PROGRAMMER Appointment [facility] Maternal Medicine [place] [address] [address] [facility] [address] [place] [phone] Jennifer Boyer MD [address] [place], [place] [address] Rayshawn Nunez MD [address] [place], [place] [address] 07/26/2023 8:30 AM STATISTICAL PROGRAMMER Office Visit [facility] Maternal Medicine [place] [address] [address] [facility] [address] [place] [phone] Jennifer Boyer MD [address] [place], [place] 0[address] Rayshawn Nunez MD [address] [place] [address] 07/29/2023 8:00 AM STATISTICAL PROGRAMMER Office Visit [address] [phone] Laureano Bennett MD [address] [place] [address] [phone] 07/29/2023 11:45 AM STATISTICAL PROGRAMMER Appointment [facility] Maternal Medicine [facility] [address] [facility] [address] [place] [phone] Jennifer Boyer MD [address] [place] [address] 07/29/2023 12:15 PM STATISTICAL PROGRAMMER Office Visit [facility] Maternal Medicine [facility] [address] [facility] [address] [place] [phone] Jennifer Boyer MD [address] [place] [address] 08/05/2023 8:00 AM STATISTICAL PROGRAMMER Office Visit [address] [phone] Laureano Bennett MD [address] [place] [address] [phone] 08/23/2023 Hospital Encounter [facility] Birthplace [address] [place] [phone] Laureano Bennett MD [address] [place] [address] [phone] documented as of this encounter Visit Diagnoses Not on filedocumented in this encounter Additional Health Concerns Assessment Noted Time PHQ-9 Depression Total Score: 0 05/17/20 23 9:06 AM STATISTICAL PROGRAMMER documented as of this encounter Care Teams Clinical Documentation Spec Relationship Specialty [place] [address] [place] [address] [phone] PCP - General Family Medicine 07/07/20 Laureano Bennett MD [address] [place] [address] [phone] Assigned PCP 08/14/[address] [place] [address] Assistant Tennis Coach Dietitian, Registered 06/14/23 documented as of this encounter
--- OUTSIDE RECORDS SUMMARY | 2023-07-21 13:58 | XMS_ITS | Encounter Summary ---
Author Name Unknown Organization [place] Address [address] [facility] [place] [address] Care Team Providers Care Utility Pipe Layer Name Role Phone Laureano Bennett MD Primary Care Provider [phone] Laureano Bennett MD Unavailable [phone] Unavailable [phone] Encounter Details Date Type Department Care Team (Latest Contact Info) Description 07/14/2023 Travel Social History Tobacco Use Types Packs/Day [...] st Contact Info) Description 07/22/2023 8:45 AM REPAIRER ENGINE PRODUCTION Appointment [facility] Maternal Medicine [place] [address] [address] [facility] [address] [place] [phone] Sheila Jones MD [address] [place], [place] [address] 07/22/2023 9:15 AM REPAIRER ENGINE PRODUCTION Office Visit [facility] Maternal Medicine [place] [address] [address] [facility] [address] [place] [phone] Sheila Jones MD [address] [place], [place] [address] 07/26/2023 8:00 AM REPAIRER ENGINE PRODUCTION Appointment [facility] Maternal Medicine [place] [address] [address] [facility] [address] [place] [phone] Jennifer Boyer MD [address] [place], [place] 8[address] Rayshawn Nunez MD [address] [place], [place] [address] 07/26/2023 8:30 AM REPAIRER ENGINE PRODUCTION Office Visit [facility] Maternal Medicine [place] [address] [address] [facility] [address] [place] [phone] Jennifer Boyer MD [address] [place], [place] 9[address] Rayshawn Nunez MD [address] [place] [address] 07/29/2023 8:00 AM REPAIRER ENGINE PRODUCTION Office Visit [address] [phone] Laureano Bennett MD [address] [place] [address] [phone] 07/29/2023 11:45 AM REPAIRER ENGINE PRODUCTION Appointment [facility] Maternal Medicine [facility] [address] [facility] [address] [place] [phone] Jennifer Boyer MD [address] [place] [address] 07/29/2023 12:15 PM REPAIRER ENGINE PRODUCTION Office Visit [facility] Maternal Medicine [facility] [address] [facility] [address] [place] [phone] Jennifer Boyer MD [address] [place] [address] 08/05/2023 8:00 AM REPAIRER ENGINE PRODUCTION Office Visit [address] [phone] Laureano Bennett MD [address] [place] [address] [phone] 08/23/2023 Hospital Encounter [facility] Birth[facility] [address] [place] [phone] Laureano Bennett MD [address] [place] [address] [phone] documented as of this encounter Visit Diagnoses Not on filedocumented in this encounter Additional Health Concerns Assessment Noted Time PHQ-9 Depression Total Score: 0 05/17/20 23 9:06 AM REPAIRER ENGINE PRODUCTION documented as of this encounter Care Teams Utility Pipe Layer Relationship Specialty [place] [address] [place] [address] [phone] PCP - General Family Medicine 07/07/20 Laureano Bennett MD [address] [place] [address] [phone] Assigned PCP 08/14/[address] [place] [address] Telephone Advice Nurse Dietitian, Registered 06/14/23 documented as of this encounter
--- OUTSIDE RECORDS SUMMARY | 2023-07-21 13:58 | XMS_ITS | Encounter Summary ---
Author Name Unknown Organization [place] Address [address] [facility] [place] [address] Care Team Providers Care Housekeeper Caregiver Name Role Phone Laureano Bennett MD Primary Care Provider [phone] Laureano Bennett MD Unavailable [phone] Unavailable [phone] Encounter Details Date Type Department Care Team (Latest Contact Info) Description 07/15/2023 Travel Social History Tobacco Use Types Packs/Day [...] st Contact Info) Description 07/22/2023 8:45 AM MANIPULATOR OPERATOR Appointment [facility] Maternal Medicine [place] [address] [address] [facility] [address] [place] [phone] Sheila Jones MD [address] [place], [place] [address] 07/22/2023 9:15 AM MANIPULATOR OPERATOR Office Visit [facility] Maternal Medicine [place] [address] [address] [facility] [address] [place] [phone] Sheila Jones MD [address] [place], [place] [address] 07/26/2023 8:00 AM MANIPULATOR OPERATOR Appointment [facility] Maternal Medicine [place] [address] [address] [facility] [address] [place] [phone] Jennifer Boyer MD [address] [place], [place] [address] Rayshawn Nunez MD [address] [place], [place] [address] 07/26/2023 8:30 AM MANIPULATOR OPERATOR Office Visit [facility] Maternal Medicine [place] [address] [address] [facility] [address] [place] [phone] Jennifer Boyer MD [address] [place], [place] 6[address] Rayshawn Nunez MD [address] [place] [address] 07/29/2023 8:00 AM MANIPULATOR OPERATOR Office Visit [address] [phone] Laureano Bennett MD [address] [place] [address] [phone] 07/29/2023 11:45 AM MANIPULATOR OPERATOR Appointment [facility] Maternal Medicine [facility] [address] [facility] [address] [place] [phone] Jennifer Boyer MD [address] [place] [address] 07/29/2023 12:15 PM MANIPULATOR OPERATOR Office Visit [facility] Maternal Medicine [facility] [address] [facility] [address] [place] [phone] Jennifer Boyer MD [address] [place] [address] 08/05/2023 8:00 AM MANIPULATOR OPERATOR Office Visit [address] [phone] Laureano Bennett MD [address] [place] [address] [phone] 08/23/2023 Hospital Encounter [facility] Birthplace [address] [place] [phone] Laureano Bennett MD [address] [place] [address] [phone] documented as of this encounter Visit Diagnoses Not on filedocumented in this encounter Additional Health Concerns Assessment Noted Time PHQ-9 Depression Total Score: 0 05/17/20 23 9:06 AM MANIPULATOR OPERATOR documented as of this encounter Care Teams Housekeeper Caregiver Relationship Specialty [place] [address] [place] [address] [phone] PCP - General Family Medicine 07/07/20 Laureano Bennett MD [address] [place] [address] [phone] Assigned PCP 08/14/[address] [place] [address] Lead Trainer Dietitian, Registered 06/14/23 documented as of this encounter
--- OUTSIDE RECORDS SUMMARY | 2023-07-21 13:58 | XMS_ITS | Encounter Summary ---
Author Name Unknown Organization [place] Address [facility] [place] [address] Care Team Providers Care Renewals Representative Name Role Phone Laureano Bennett MD Primary Care Provider Laureano Bennett MD Unavailable [phone] Unavailable Encounter Details Date Type Department Care Team ([facility] st Contact Info) Description 07/18/2023 4:00 PM BELT MACHINE OPERATOR Office Visit [facility] [place] [address] [facility] [address] [place] [address] Jennifer Boyer MD [address] [place] [address] [address] [place] [address] Tyshawn Mccurdy MD [address] [place] [address] [address] [place] [address] Insulin controlled gestational diabetes mellitus (GDM) in third trimester (Primary Dx) Social History Tobacco Use Types Packs/Day Years [...] on file documented as of this encounter Progress Notes * Tyshawn Mccurdy MD - 07/18/2023 4:00 PM CST Please see Imaging tab under Chart Review for details of today's US at the [facility]. Tyshawn Mccurdy MD Maternal- Medicine MACHINE OPERATOR documented in this encounter Plan of Treatment Upcoming Encounters Date Type Department Care Team (Late st Contact Info) Description 07/22/2023 8:45 AM BELT MACHINE OPERATOR Appointment [facility] [place] [address] [place] [address] Sheila Jones MD [address] [place] [address] [place] [address] 07/22/2023 9:15 AM BELT MACHINE OPERATOR Office Visit [facility] [place] [address] [facility] [address] [place] [phone] Sheila Jones MD [address] [place] [place] [address] 07/26/2023 8:00 AM BELT MACHINE OPERATOR Appointment [facility] [place] [address] [facility] [address] [place] [phone] Jennifer Boyer MD [address] [place], [place] [address] Rayshawn Nunez MD [address] [place] [place], [place] [address] 07/26/2023 8:30 AM BELT MACHINE OPERATOR Office Visit [facility] [place] [address] [facility] [address] [place] [phone] Jennifer Boyer MD [address] [place], [place] [address] Rayshawn Nunez MD [address] [place] [address] 07/29/2023 8:00 AM BELT MACHINE OPERATOR Office Visit [address] [place] [phone] Laureano Bennett MD [address] [place] [address] 07/29/2023 11:45 AM BELT MACHINE OPERATOR Appointment [facility] [address] [facility] [address] [place] [address] Jennifer Boyer MD [address] [place] [address] 07/29/2023 12:15 PM BELT MACHINE OPERATOR Office Visit [facility] [address] [facility] [address] [place] [address] Jennifer Boyer MD [address] [place] [address] 08/05/2023 8:00 AM BELT MACHINE OPERATOR Office Visit [address] [phone] Laureano Bennett MD [address] [place] [id number] 08/23/2023 Hospital Encounter [facility] [address] [place] [address] Laureano Bennett MD [address] [place] [address] [phone] documented as of this encounter Visit Diagnoses Diagnosis Insulin controlled gestational diabetes mellitus (GDM) in third trimester- Primary documented in this encounter Additional Health Concerns Assessment Noted Time PHQ-9 Depression Total Score: 0 05/17/20 23 9:06 AM BELT MACHINE OPERATOR documented as of this encounter Care Teams Renewals Representative Relationship Specialty Start Date End Date Laureano Bennett MD [address] [place] [phone] PCP - General Family Medicine 07/07/20 Laureano Bennett MD [address] [place] [address] Assigned PCP 08/14/[address] [facility] [address] [place] [address] Store Team Leader Dietitian, Registered 06/14/23 documented as of this encounter
--- OUTSIDE RECORDS SUMMARY | 2023-07-21 13:58 | XMS_ITS | Encounter Summary ---
Author Name Unknown Organization [place] Address [address] [place] [address] Care Team Providers Care Jeweler Apprentice Name Role Phone Laureano Bennett MD Primary Care Provider [phone] Laureano Bennett MD Unavailable [phone] Unavailable [phone] Reason for Visit * Reason Comments Ultrasound BPP-GDMA2, Hx term I UFD Encounter Details Date Type Department Care Team ([facility] st Contact Info) Description 2023 8:30 AM CLINICAL REGISTERED NURSE Office Visit [facility] [place] [address] [facility] [address] [place] [address] Rayshawn Nunez MD [address] [facility] [address] [place] [address] Insulin controlled gestational diabetes mellitus [...] on file documented as of this encounter Patient Instructions * Patient Instructions* Beatriz Pro, GAVI - 2023 8:30 AM CLINICAL REGISTERED NURSE Images from the original note were not included. Counting Your Baby's Kicks: Care Instructions Overview Counting your baby's kicks is one way your doctor can tell that your baby is healthy. You will probably feel your baby move for the first time between 16 and 22 weeks. The movement may feel like flutters rather than kicks. Your baby may move more at certain times of the day. When you are active, you may notice less kicking than when you are resting. At your visits, your doctor will ask whether the baby is active. In your last trimester, your doctor may ask you to count the number of times you feel your baby move. Follow-up care is a gomez part of your treatment and safety. Be sure to make and go to all appointments, and call your doctor if you are having problems. It's also a good idea to know your test resultsand keep a list of the medicines you take. How do you count kicks? A common method of checking your baby's movement is to note the length of time it takes to count 10movements (such as kicks, flutters, or rolls). Pick your baby's most active time of day to count. This may be any time from morning to evening. If you don't feel 10 movements in an hour, have something to eat or drink and count for another hour. If you don't feel at least 10 movements in the 2-hour period, call your doctor. Do not use an at-home Doppler heart monitor in place of counting movements. When should you call for help? Call your doctor now or seek immediate medical care if: You feel fewer than 10 movements in a 2-hour period. You noticed that your baby has stopped moving or is moving less than normal. Watch closely for changes in your health, and be sure to contact your doctor if you have any problems. Where can you learn more? Go to https://www.Alph[employer].net/patiented Enter U048 in the search box to learn more about Counting Your Baby's Kicks: Care Instructions. Current as of: December 28, 2022 Content Version: 13.8 ?? [employer]. Care instructions adapted under license by your healthcare professional. If you have questions about a medical condition or this instruction, always ask your healthcare professional. [employer] disclaims any warranty or liability for your use of this information. ICAL REGISTERED NURSE documented in this encounter Progress Notes * Rayshawn Nunez MD - 2023 8:30 AM CST Please see full imaging report from ViewPoint program under imaging tab. Breech. Rayshawn Nunez MD Maternal Medicine ICAL REGISTERED NURSE documented in this encounter Nursing Notes * Beatriz Pro RN - 2023 8:30 AM CST Patient reports movement, however does get nervous daily when not feeling movement. Doing kick counts. Sometimes it take awhile to get the movements. Seen on L&D for decreased movement on 07/08/23. Denies pain, contractions, leaking of fluid, or bleeding. Reports blood sugar values with range. Currently taking 16units of insulin in AM. Patient denies headache, visual changes, nausea /vomiting, epigastric pain related to preeclampsia. Education provided to patient on Kick Counts. SBAR given to MARYAM MAYERS, see their note in Epic. ICAL REGISTERED NURSE documented in this encounter Plan of Treatment Upcoming Encounters Date Type Department Care Team (Late st Contact Info) Description 07/22/2023 8:45 AM CLINICAL REGISTERED NURSE Appointment [facility] Maternal Medicine [place] [address] [facility] [address] [place] [phone] Sheila Jones MD [address] [place], [place] [address] 07/22/2023 9:15 AM CLINICAL REGISTERED NURSE Office Visit [facility] Maternal Medicine [place] [address] [facility] [address] [place] [phone] Sheila Jones MD [address] [place], [place] [phone] 07/26/2023 8:00 AM CLINICAL REGISTERED NURSE Appointment [facility] Maternal Medicine [place] [address] [facility] [address] [place] [phone] Jennifer Boyer MD [address] [place], [place] [phone] Rayshawn Nunez MD [address] [place], [place] [address] 07/26/2023 8:30 AM CLINICAL REGISTERED NURSE Office Visit [facility] Maternal Medicine [place] [address] [facility] [address] [place] [phone] Jennifer Boyer MD [address] [place], [place] [address] Rayshawn Nunez MD [address] [place] [address] 07/29/2023 8:00 AM CLINICAL REGISTERED NURSE Office Visit [address] [phone] Laureano Bennett MD [address] [place] [phone] 07/29/2023 11:45 AM CLINICAL REGISTERED NURSE Appointment [facility] Maternal Medicine [facility] [address] [facility] [address] [place] [phone] Jennifer Boyer MD [address] [place] [address] 07/29/2023 12:15 PM CLINICAL REGISTERED NURSE Office Visit [facility] Maternal Medicine [facility] [address] [facility] [address] [place] [phone] Jennifer Boyer MD [address] [place] [address] 08/05/2023 8:00 AM CLINICAL REGISTERED NURSE Office Visit [address] [phone] Laureano Bennett MD [address] [place] [address] 08/23/2023 Hospital Encounter [facility] [address] [place] [address] Laureano Bennett MD [address] [place] [address] [phone] documented as of this encounter Visit Diagnoses Diagnosis Insulin controlled gestational diabetes mellitus (GDM) in third trimester- Primary documented in this encounter Additional Health Concerns Assessment Noted Time PHQ-9 Depression Total Score: 0 05/17/20 23 9:06 AM CLINICAL REGISTERED NURSE documented as of this encounter Care Teams Jeweler Apprentice Relationship Specialty Start Date End Date Laureano Bennett MD [facility] [place] [address] PCP - General Family Medicine 07/07/20 Laureano Bennett MD [address] [place] [address] Assigned PCP 08/14/[address] [place] [address] [address] Three Knife Trimmer Dietitian, Registered 06/14/23 documented as of this encounter
--- OUTSIDE RECORDS SUMMARY | 2023-07-21 13:58 | XMS_ITS | Encounter Summary ---
Author Name Unknown Organization [place] Address [address] [facility] [place] [address] Care Team Providers Care Retail Project Merchandiser Name Role Phone Laureano Bennett MD Primary Care Provider [phone] Laureano Bennett MD Unavailable [phone] Unavailable [phone] Reason for Visit * Reason Comments Ultrasound BPP-GDMA2, hx term I UFD Encounter Details Date Type Department Care Team ([facility] st Contact Info) Description 07/15/2023 12:15 PM PRACTICE PERFORMANCE MANAGER Office Visit [facility] [place] [address] [facility] [address] [place] [address] Rosemary Cheema MD [address] [facility] [address] [facility] [address] [place] [address] Insulin controlled gestational diabetes mellitus (GDM) in third trimester (Primary Dx); Prior with demise and current in third trimester Social History Tobacco Use Types Packs/Day Years [...] as of this encounter Progress Notes * Rosemary Cheema MD - 07/15/2023 12:15 PM CST Please see Imaging tab under Chart Review for details of today's visit. Rosemary Cheema TICE PERFORMANCE MANAGER documented in this encounter Nursing Notes * Addis Olivares RN - 07/15/2023 12:15 PM CST Patient reports + movement, no pain, no contractions, leaking of fluid, or bleeding. Reports blood sugar values fasting >95 and 1 hr post prandial <140 with the exception of post dinner values which generally run >140. SBAR given to MARYAM MAYERS, see their note in Epic. TICE PERFORMANCE MANAGER documented in this encounter Plan of Treatment Upcoming Encounters Date Type Department Care Team (Late st Contact Info) Description 07/22/2023 8:45 AM PRACTICE PERFORMANCE MANAGER Appointment [facility] [place] [address] [facility] [address] [place] [address] Sheila Jones MD [address] [place] [address] 07/22/2023 9:15 AM PRACTICE PERFORMANCE MANAGER Office Visit [facility] [place] [address] [facility] [address] [place] [phone] Sheila Jones MD [address] [place] [address] 07/26/2023 8:00 AM PRACTICE PERFORMANCE MANAGER Appointment [facility] [place] [address] [address] [place] [phone] Jennifer Boyer MD [address] [place], [place] [address] Rayshawn Nunez MD [address] [place], [place] [address] 07/26/2023 8:30 AM PRACTICE PERFORMANCE MANAGER Office Visit [facility] [place] [address] [facility] [address] [place] [phone] Jennifer Boyer MD [address] [place], [place] [address] Rayshawn Nunez MD [address] [place] [address] 07/29/2023 8:00 AM PRACTICE PERFORMANCE MANAGER Office Visit [address] [place] [phone] Laureano Bennett MD [address] [place] [address] 07/29/2023 11:45 AM PRACTICE PERFORMANCE MANAGER Appointment [facility] [address] [facility] [address] [place] [address] Jennifer Boyer MD [address] [place] [address] 07/29/2023 12:15 PM PRACTICE PERFORMANCE MANAGER Office Visit [facility] [address] [facility] [address] [place] [address] Jennifer Boyer MD [address] [place] [address] 08/05/2023 8:00 AM PRACTICE PERFORMANCE MANAGER Office Visit [address] [phone] Laureano Bennett MD [address] [place] [address] 08/23/2023 Hospital Encounter [facility] [address] [place] [address] Laureano Bennett MD [address] [place] [address] [phone] documented as of this encounter Visit Diagnoses Diagnosis Insulin controlled gestational diabetes mellitus (GDM) in third trimester- Primary Prior with demise and current in third trimester documented in this encounter Additional Health Concerns Assessment Noted Time PHQ-9 Depression Total Score: 0 05/17/20 23 9:06 AM PRACTICE PERFORMANCE MANAGER documented as of this encounter Care Teams Retail Project Merchandiser Relationship Specialty Start Date End Date Laureano Bennett MD [address] [place] [address] PCP - General Family Medicine 07/07/20 Laureano Bennett MD [facility] [place] [address] Assigned PCP 08/14/[address] [facility] [address] [place] [address] Alteration Manager Dietitian, Registered 06/14/23 documented as of this encounter
--- OUTSIDE RECORDS SUMMARY | 2023-07-21 13:58 | XMS_ITS | Encounter Summary ---
Author Name Unknown Organization [place] Address [address] [place] [address] Care Team Providers Care Motor Tune Up Specialist Name Role Phone Renee Bennett MD Primary Care Provider [phone] Renee Bennett MD Unavailable [phone] Unavailable [phone] Reason for Referral * Diagnostic Imaging Ultrasound (Routine) - Pending Review Specialty Diagnoses / Procedures Referred By Tim nathan Referred To Contact Radiology. Diagnoses Gestational diabetes mellitus (GDM) in third trimester controlled on oral hypoglycemic drug History of IUFD Procedures Maternal BPP Single Jennifer Boyer MD [address] [place] [address] [place] [address] Referral ID Status Reason Start Date Expiration Date V isits Requested Visits Authorized [id number] Pending Review 07/01/2023 06/30/2024 1 1 ER TRIPPER Reason for Visit * Diagnostic Imaging Ultrasound (Routine) - Pending Review Specialty Diagnoses / Procedures Referred By Tim nathan Referred To Contact Radiology. Diagnoses Gestational diabetes mellitus (GDM) in third trimester controlled on oral hypoglycemic drug History of IUFD Procedures Maternal BPP Single Jennifer Boyer MD [address] [place] [address] Referral ID Status Reason Start Date Expiration Date V isits Requested Visits Authorized [id number] Pending Review 07/01/2023 06/30/2024 1 1 Encounter Details Date Type Department Care Team (Latest Contact Info) Description 07/15/2023 11:40 AM LUMBER TRIPPER - 07/15/2023 11:59 PM LUMBER TRIPPER Hospital Encounter [facility] [place] [address] [facility] [address] [place] [phone] Rosemary Cheema MD [address] [facility] [address] [place] [address] Gestational diabetes mellitus (GDM) in third trimester controlled on oral hypoglycemic drug; Prior with demise and current in third trimester Discharge Disposition: Home or Self Care Social [...] on file documented as of this encounter Medications at Time of Discharge Medication Sig Dispensed Refills Start Date End Date acetone urine (KETOSTIX) test stripIndications:Gestat ional diabetes mellitus (GDM), antepartum, gestational diabetes method of control unspecified 1 strip daily Use one strip daily for 1 week then weekly if negative 50 strip 1 06/14/2023 B-D U/F insulin pen needle USE DIRECTED WITH LANTUS 0 07/04/2023 blood glucose (NO BRAND SPECIFIED) test stripIndications:Gestat ional diabetes mellitus (GDM), antepartum, gestational diabetes method of control unspecified Use to test blood sugar 1-4 times daily or as directed. To accompany: Blood Glucose Monitor Brands: per insurance. 100 strip 6 06/03/2023 Blood Glucose Monitoring Suppl (ACCU-CHEK GUIDE) w/Device KIT USE TO TEST BLOOD SUGAR 1-2 TIMES DAILY OR DIRECTED 0 06/03/2023 clobetasol (TEMOVATE) 0.05 % external solutionIndications:Say matitis Apply topically 2 times daily as needed 50 mL 1 01/05/2023 Continuous Blood Gluc Sensor (FREESTYLE DEREK 14 DAY SENSOR) MISCIndications:Gestati onal diabetes mellitus (GDM), antepartum, gestational diabetes method of control unspecified 1 Device every 14 days 6 each 3 06/03/2023 fish oil-omega-3 fatty acids 1000 MG capsule Take 2 g by mouth daily 0 insulin glargine (LANTUS PEN) 100 UNIT/ML penIndications:Gestatio nal diabetes mellitus (GDM), antepartum, gestational diabetes method of control unspecified Inject 17 Units Subcutaneous every morning -with pharmacist recommended needles. 9 mL 1 07/15/2023 insulin lispro (HUMALOG KWIKPEN) 100 UNIT/ML (1 unit dial) KWIKPENIndications:Gest ational diabetes mellitus (GDM), antepartum, gestational diabetes method of control unspecified Inject 2-6 Units Subcutaneous 2 times daily (before meals) 0 07/15/2023 ondansetron (ZOFRAN ODT) 8 MG ODT tabIndications:Hypereme sis Take 1 tablet (8 mg) by mouth every 8 hours as needed for nausea 45 tablet 5 02/10/2023 Vit-Fe Fumarate-FA ( MULTIVITAMIN W/IRON) 27-0.8 MG tablet Take 1 tablet by mouth daily 0 thin (NO BRAND SPECIFIED) lancetsIndications:Gest ational diabetes mellitus (GDM), antepartum, gestational diabetes method of control unspecified Use with lanceting device. To accompany: Blood Glucose Monitor Brands: per insurance. 100 each 11 06/03/2023 documented as of this encounter Miscellaneous Notes * Result Encounter Note - Renee Bennett MD - 07/15/2023 10:06 PM LUMBER TRIPPER Dear Yu, Here is a summary of your recent test results: -Baby is head down - Good News! Thank you very much for trusting me and [facility]. Have a peaceful day. Healthy regards, Prasad Bennett MD ER TRIPPER documented in this encounter Plan of Treatment Upcoming Encounters Date Type Department Care Team (Late st Contact Info) Description 07/22/2023 8:45 AM LUMBER TRIPPER Appointment [facility] Maternal Medicine [place] [address] [place] [phone] Sheila Jones MD [address] [place] [address] 07/22/2023 9:15 AM LUMBER TRIPPER Office Visit [facility] [place] [address] [facility] [address] [place] [address] [phone] Sheila Jones MD [address] [place], [place] [phone] 07/26/2023 8:00 AM LUMBER TRIPPER Appointment [facility] [place] [address] [place] [address] [phone] Jennifer Boyer MD [address] [place], [place] [phone] Rayshawn Nunez MD [address] [place] [address] 07/26/2023 8:30 AM LUMBER TRIPPER Office Visit [facility] [place] [address] [facility] [address] [place] [phone] Jennifer Boyer MD [address] [place] [address] Rayshawn Nunez MD [address] [place] [address] 07/29/2023 8:00 AM LUMBER TRIPPER Office Visit [address] [phone] Renee Bennett MD [address] [place] [address] [phone] 07/29/2023 11:45 AM LUMBER TRIPPER Appointment [facility] [place] [address] [facility] [address] [place] [phone] Jennifer Boyer MD [address] [place] [address] 07/29/2023 12:15 PM LUMBER TRIPPER Office Visit [facility] [place] [address] [facility] [address] [place] [phone] Jennifer Boyer MD [address] [place] [address] 08/05/2023 8:00 AM LUMBER TRIPPER Office Visit [address] [phone] Renee Bennett MD [address] [place], [place] 926[address] 08/23/[address] [facility] [address] [place] [phone] Renee Bennett MD [address] [place], [place] [phone] documented as of this encounter Procedures Procedure Name Priority Date/Time Associated Diagnosis Comments MFM BPP SINGLE Routine 07/15/2023 12:07 PM LUMBER TRIPPER Gestational diabetes mellitus (GDM) in third trimester controlled on oral hypoglycemic drug Prior with demise and current in third trimester documented in this encounter Results * Maternal BPP Single (07/15/2023 12:07 PM LUMBER TRIPPER) Anatomical Region Laterality Modality Ultrasound 07/15/2023 11:4 0 AM LUMBER TRIPPER Impressions 07/15/2023 2:59 PM LUMBER TRIPPER IMPRESSION ----- 1) [place] intrauterine at 34w 3d gestational age. 2) The BPP is reassuring. 3) The amniotic fluid volume appeared normal. Narrative 07/15/2023 2:59 PM LUMBER TRIPPER ?BPP ----- Pat. Name: YU RENEE ? Study Date: ??07/15/2023 11:40am Pat. NO: ??[id number] ?Referring ??MD: RENEE BENNETT Site: ??[facility] ? Story Reader: Makeda Hassan RDMS : ??1995 ?Age: ?? 28 ----- INDICATION ----- Gestational Diabetes (GDM) - on Insulin History of term IUFD METHOD ----- Transabdominal ultrasound examination. View: Sufficient ----- [place] . Number of fetuses: 1 DATING ----- ? Date ?Details ?Gest. age ?[place] LMP ?11/16/2022 ?Cycle: regular cycle ?34 w + 3 d ? 08/23/2023 Prior assessment ? 01/05/2023 ? GA: 7 w + 1 d ?34 w + 3 d ? 08/23/2023 Assigned dating ?Dating performed on 07/15/2023, based on the LMP ?34 w + 3 d ? 08/23/2023 GENERAL EVALUATION ----- Cardiac activity present. FHR 128 bpm. movements visualized. Presentation cephalic. Placenta Anterior. Umbilical cord previously studied. AMNIOTIC FLUID ASSESSMENT ----- Amount of AF: normal MVP 4.4 cm BIOPHYSICAL PROFILE ----- 2: breathing movements 2: Gross body movements 2: tone 2: Amniotic fluid volume 8/8 Biophysical profile score Interpretation: normal RECOMMENDATION ----- We discussed the findings on today's ultrasound with the patient. Continue surveillance with twice weekly BPP. Return to primary provider for continued care. Thank-you for the opportunity to participate in the care of this patient. If you have questions regarding today's evaluation or if we can be of further service, please contact the [facility]aternal[facility] Center. anomalies may be present but not detected Procedure Note Rosemary Cheema MD - 07/15/2023 BPP ----- Pat. Name: YU RENEE Study Date: 07/15/2023 11:40am Pat. NO: [id number] Referring MD: RENEE BENNETT Site: [facility] Story Reader: Makeda Hassan RDMS : 1995 Age: 28 ----- INDICATION ----- Gestational Diabetes (GDM) - on Insulin History of term IUFD METHOD ----- Transabdominal ultrasound examination. View: Sufficient ----- [place] . Number of fetuses: 1 DATING ----- DateDetailsGest. age [place] LMP 11/16/2022ycle: regular cycle34 w + 3 d 08/23/2023 Prior assessment 01/05/2023 GA: 7 w +1 d34 w + 3 d 08/23/2023 Assigned dating Dating performed on 07/15/2023, based onthe LMP 34 w +3 d 08/23/2023 GENERAL EVALUATION ----- Cardiac activity present. FHR 128 bpm. movements visualized. Presentation cephalic. Placenta Anterior. Umbilical cord previously studied. AMNIOTIC FLUID ASSESSMENT ----- Amount of AF: normal MVP 4.4 cm BIOPHYSICAL PROFILE ----- 2: breathing movements 2: Gross body movements 2: tone 2: Amniotic fluid volume 88 Biophysical profile score Interpretation: normal RECOMMENDATION ----- We discussed the findings on today's ultrasound with the patient. Continue surveillance with twice weekly BPP. Return to primary provider for continued care. Thank-you for the opportunity to participate in the care of this patient.If you have questions regarding today's evaluation or if we can be offurther service, please contact the [facility] Center. anomalies may be present but not detected IMPRESSION ----- 1) [place] intrauterine at 34w 3d gestational age. 2) The BPP is reassuring. 3) The amniotic fluid volume appeared normal. Jennifer Boyer MD [facility] documented in this encounter Visit Diagnoses Diagnosis Gestational diabetes mellitus (GDM) in third trimester controlled on oral hypoglycemic drug Prior with demise and current in third trimester documented in this encounter Additional Health Concerns Assessment Noted Time PHQ-9 Depression Total Score: 0 05/17/20 23 9:06 AM LUMBER TRIPPER documented as of this encounter Care Teams Motor Tune Up Specialist Relationship Specialty [place] [address] [place] [address] [phone] PCP - General Family Medicine 07/07/20 Renee Bennett MD [address] [place] [address] [id number] Assigned PCP 08/14/[address] [place] [address] Game Author Dietitian, Registered 06/14/23 documented as of this encounter
--- OUTSIDE RECORDS SUMMARY | 2023-07-21 13:58 | XMS_ITS | Encounter Summary ---
Author Name Unknown Organization [place] Address [address] [facility] [place] [address] Care Team Providers Care Dairy Husbandman Name Role Phone Laureano Bennett MD Primary Care Provider [phone] Laureano Bennett MD Unavailable [phone] Unavailable [phone] Encounter Details Date Type Department Care Team (Latest Contact Info) Description 07/18/2023 Travel Social History Tobacco Use Types Packs/Day [...] st Contact Info) Description 07/22/2023 8:45 AM IT SALES REPRESENTATIVE Appointment [facility] Maternal Medicine [place] [address] [facility] [address] [place] [address] [phone] Sheila Jones MD [address] [address] [place] [address] [phone] 07/22/2023 9:15 AM IT SALES REPRESENTATIVE Office Visit [facility] [place] [address] [facility] [address] [place] [address] [phone] Sheila Jones MD [address] [place] [address] [place] [address] [phone] 07/26/2023 8:00 AM IT SALES REPRESENTATIVE Appointment [facility] [address] [facility] [address] [place] [address] [phone] Jennifer Boyer MD [address] [address] [place] [address] [phone] Rayshawn Nunez MD [address] [place], [place] [address] 07/26/2023 8:30 AM IT SALES REPRESENTATIVE Office Visit [facility] [place] [address] [facility] [address] [place] [phone] Jennifer Boyer MD [address] [place] [address] Rayshawn Nunez MD [address] [place] [address] 07/29/2023 8:00 AM IT SALES REPRESENTATIVE Office Visit [address] [phone] Laureano Bennett MD [address] [place] [address] [phone] 07/29/2023 11:45 AM IT SALES REPRESENTATIVE Appointment [facility] [place] [address] [facility] [address] [place] [phone] Jennifer Boyer MD [address] [place] [address] [place] [address] 07/29/2023 12:15 PM IT SALES REPRESENTATIVE Office Visit [facility] [place] [address] [facility] [address] [place] [phone] Jennifer Boyer MD [address] [place] [address] 08/05/2023 8:00 AM IT SALES REPRESENTATIVE Office Visit [address] [phone] Laureano Bennett MD [address] [place] [address] [phone] 08/23/2023 Hospital Encounter [facility] [address] [place] [phone] Laureano Bennett MD [address] [place] [address] [phone] documented as of this encounter Visit Diagnoses Not on filedocumented in this encounter Additional Health Concerns Assessment Noted Time PHQ-9 Depression Total Score: 0 05/17/20 23 9:06 AM IT SALES REPRESENTATIVE documented as of this encounter Care Teams Dairy Husbandman Relationship Specialty Start Date End Date Laureano Bennett MD [address] [place] [address] [phone] PCP - General Family Medicine 07/07/20 Laureano Bennett MD [address] [place] [address] Assigned PCP 08/14/[address] [place] [address] [place] [address] Machine Skiver Dietitian, Registered 06/14/23 documented as of this encounter
--- OUTSIDE RECORDS SUMMARY | 2023-07-21 13:58 | XMS_ITS | Encounter Summary ---
Author Name Unknown Organization [place] Address [address] [place] [address] Care Team Providers Care Real Time Operator Name Role Phone Renee Bennett MD Primary Care Provider [phone] Renee Bennett MD Unavailable [phone] Unavailable [phone] Reason for Referral * Diagnostic Imaging Ultrasound (Routine) - Pending Review Specialty Diagnoses / Procedures Referred By Tim nathan Referred To Contact Radiology. Diagnoses Gestational diabetes mellitus (GDM) in third trimester controlled on oral hypoglycemic drug History of IUFD Procedures Maternal BPP Single Jennifer Boyer MD [address] [place] [address] [place] [address] Referral ID Status Reason Start Date Expiration Date V isits Requested Visits Authorized [id number] Pending Review 07/01/2023 06/30/2024 1 1 OGRAMMETRIC ENGINEER Reason for Visit * Diagnostic Imaging Ultrasound (Routine) - Pending Review Specialty Diagnoses / Procedures Referred By Tim nathan Referred To Contact Radiology. Diagnoses Gestational diabetes mellitus (GDM) in third trimester controlled on oral hypoglycemic drug History of IUFD Procedures Maternal BPP Single Jennifer Boyer MD [address] [place] [address] Referral ID Status Reason Start Date Expiration Date V isits Requested Visits Authorized [id number] Pending Review 07/01/2023 06/30/2024 1 1 Encounter Details Date Type Department Care Team (Latest Contact Info) Description 07/18/2023 3:30 PM PHOTOGRAMMETRIC ENGINEER - 07/18/2023 11:59 PM PHOTOGRAMMETRIC ENGINEER Hospital Encounter [facility] [place] [address] [facility] [address] [place] [phone] Jennifer Boyer MD [address] [place] [address] Tyshawn Mccurdy MD [address] [place] [address] Gestational diabetes mellitus (GDM) in [...] 11 06/03/2023 documented as of this encounter Plan of Treatment Upcoming Encounters Date Type Department Care Team (Late st Contact Info) Description 07/22/2023 8:45 AM PHOTOGRAMMETRIC ENGINEER Appointment [facility] [place] [address] [facility] [address] [place] [phone] Sheila Jones MD [address] [place], [place] [phone] 07/22/2023 9:15 AM PHOTOGRAMMETRIC ENGINEER Office Visit [facility] Maternal Medicine [place] [address] [address] [facility] [address] [place] [phone] Sheila Jones MD [address] [place] [address] 07/26/2023 8:00 AM PHOTOGRAMMETRIC ENGINEER Appointment [facility] M[facility] Medicine [facility] [address] [facility] [address] [place] [phone] Jennifer Boyer MD [address] [place], [place] [address] Rayshawn Nunez MD [address] [place] [address] 07/26/2023 8:30 AM PHOTOGRAMMETRIC ENGINEER Office Visit [facility] M[facility] Medicine [place] [address] [address] [facility] [address] [place] [phone] Jennifer Boyer MD [address] [place] [address] Rayshawn Nunez MD [address] [place] [address] 07/29/2023 8:00 AM PHOTOGRAMMETRIC ENGINEER Office Visit [address] [phone] Renee Bennett MD [address] [place] [address] [phone] 07/29/2023 11:45 AM PHOTOGRAMMETRIC ENGINEER Appointment [facility] Medicine [place] [address] [address] [facility] [address] [place] [phone] Jennifer Boyer MD [address] [place] [address] 07/29/2023 12:15 PM PHOTOGRAMMETRIC ENGINEER Office Visit [facility] Maternal Medicine [place] [address] [address] [facility] [address] [place] [phone] Jennifer Boyer MD [address] [place] [address] 08/05/2023 8:00 AM PHOTOGRAMMETRIC ENGINEER Office Visit [address] [phone] Renee Bennett MD [address] [place], [place] [phone] 08/23/2023 Hospital Encounter [facility] [address] [place] [phone] [place] [address] [place] [address] [phone] documented as of this encounter Procedures Procedure Name Priority Date/Time Associated Diagnosis Comments MFM BPP SINGLE Routine 07/18/2023 3:55 PM PHOTOGRAMMETRIC ENGINEER Gestational diabetes mellitus (GDM) in third trimester controlled on oral hypoglycemic drug Prior with demise and current in third trimester documented in this encounter Results * Maternal BPP Single (07/18/2023 3:55 PM PHOTOGRAMMETRIC ENGINEER) Anatomical Region Laterality Modality Ultrasound 07/18/2023 3:34 PM PHOTOGRAMMETRIC ENGINEER Impressions 07/18/2023 3:57 PM PHOTOGRAMMETRIC ENGINEER IMPRESSION ----- 1) Normal amniotic fluid volume. 2) BPP is reassuring. Narrative 07/18/2023 3:57 PM PHOTOGRAMMETRIC ENGINEER ?BPP ----- Pat. Name: YU RENEE ? Study Date: ??07/18/2023 3:34pm Pat. NO: ??[id number] ?Referring ??MD: RENEE BENNETT Site: ??[facility] ? Application Administrator: Kirstin Gold : ??1995 ?Age: ?? 28 ----- INDICATION [...] RENEE Study Date: 07/18/2023 3:34pm Pat. NO: [id number] Referring MD: RENEE BENNETT Site: [facility] Application Administrator: Kirstin Gold RDMS : 1995 Age: 28 [...] 2) BPP is reassuring. Jennifer Boyer MD [facility] US ORDERAB LES documented in this encounter Visit Diagnoses Diagnosis Gestational diabetes mellitus (GDM) in third trimester controlled on oral hypoglycemic drug Prior with demise and current in third trimester documented in this encounter Additional Health Concerns Assessment Noted Time PHQ-9 Depression Total Score: 0 05/17/20 23 9:06 AM PHOTOGRAMMETRIC ENGINEER documented as of this encounter Care Teams Real Time Operator Relationship Specialty Start Date End Date Renee Bennett MD [address] [place] [address] [phone] PCP - General Family Medicine 07/07/20 Renee Bennett MD [address] [place] [address] [phone] Assigned PCP 08/14/[address] [place] [address] Transfusion Nurse Dietitian, Registered 06/14/23 documented as of this encounter
--- OUTSIDE RECORDS SUMMARY | 2023-07-21 13:58 | XMS_ITS | Encounter Summary ---
Author Name Unknown Organization [facility] Address [address] [place] [address] Care Team Providers Care Life Skills Consultant Name Role Phone Renee Bennett MD Primary Care Provider [phone] Renee Bennett MD Unavailable [phone] Unavailable [phone] Reason for Referral * Diagnostic Imaging Ultrasound (Routine) - Pending Review Specialty Diagnoses / Procedures Referred By Tim nathan Referred To Contact Radiology. Diagnoses Gestational diabetes mellitus (GDM) in third trimester controlled on oral hypoglycemic drug History of IUFD Procedures Maternal BPP Single Jennifer Boyer MD [address] [address] Referral ID Status Reason Start Date Expiration Date V isits Requested Visits Authorized [id number] Pending Review 07/01/2023 06/30/2024 1 1 ERTY INSURANCE AGENT Reason for Visit * Diagnostic Imaging Ultrasound (Routine) - Pending Review Specialty Diagnoses / Procedures Referred By Tim nathan Referred To Contact Radiology. Diagnoses Gestational diabetes mellitus (GDM) in third trimester controlled on oral hypoglycemic drug History of IUFD Procedures Maternal BPP Single Jennifer Boyer MD [address] [place] [address] Referral ID Status Reason Start Date Expiration Date V isits Requested Visits Authorized [id number] Pending Review 07/01/2023 06/30/2024 1 1 Encounter Details Date Type Department Care Team (Latest Contact Info) Description 2023 8:00 AM PROPERTY INSURANCE AGENT - 2023 11:59 PM PROPERTY INSURANCE AGENT Hospital Encounter [facility] [place] [address] [facility] [address] [place] [phone] Rayshawn Nunez MD [address] [facility] [address] [place] [address] Gestational diabetes mellitus (GDM) in [...] Date End Date acetone urine (KETOSTIX) test stripIndications:Gesta tional diabetes mellitus (GDM), antepartum, gestational diabetes method of control unspecified 1 strip daily Use one strip daily for 1 week then weekly if negative 50 strip 1 06/14/2023 B-D U/F insulin pen needle USE DIRECTED WITH LANTUS 0 07/04/2023 blood glucose (NO BRAND SPECIFIED) test stripIndications:Gesta tional diabetes mellitus (GDM), antepartum, gestational diabetes method of control unspecified Use to test blood sugar 1-4 times daily or as directed. To accompany: Blood Glucose Monitor Brands: per insurance. 100 strip 6 06/03/2023 Blood Glucose Monitoring Suppl (ACCU-CHEK GUIDE) w/Device KIT USE TO TEST BLOOD SUGAR 1-2 TIMES DAILY OR DIRECTED 0 06/03/2023 clobetasol (TEMOVATE) 0.05 % external solutionIndications:De rmatitis Apply topically 2 times daily as needed 50 mL 1 01/05/2023 Continuous Blood Gluc Sensor (FREESTYLE DEREK 14 DAY SENSOR) MISCIndications:Gestat ional diabetes mellitus (GDM), antepartum, gestational diabetes method of control unspecified 1 Device every 14 days 6 each 3 06/03/2023 fish oil-omega-3 fatty acids 1000 MG capsule Take 2 g by mouth daily 0 ondansetron (ZOFRAN ODT) 8 MG ODT tabIndications:Hyperem esis Take 1 tablet (8 mg) by mouth every 8 hours as needed for nausea 45 tablet 5 02/10/2023 Vit-Fe Fumarate-FA ( MULTIVITAMIN W/IRON) 27-0.8 MG tablet Take 1 tablet by mouth daily 0 thin (NO BRAND SPECIFIED) lancetsIndications:Ges tational diabetes mellitus (GDM), antepartum, gestational diabetes method of control unspecified Use with lanceting device. To accompany: Blood Glucose Monitor Brands: per insurance. 100 each 11 06/03/2023 blood glucose monitoring (NO BRAND SPECIFIED) meter device kitIndications:Gestati onal diabetes mellitus (GDM), antepartum, gestational diabetes method of control unspecified Use to test blood sugar 1-2 times daily or as directed. Preferred blood glucose meter OR supplies to accompany: Blood Glucose Monitor Brands: per insurance. 1 kit 0 06/03/2023 07/15/2023 insulin glargine (LANTUS PEN) 100 UNIT/ML penIndications:Gestati onal diabetes mellitus (GDM), antepartum, gestational diabetes method of control unspecified Inject 16 Units Subcutaneous every morning -with pharmacist recommended needles. 9 mL 1 07/04/2023 07/15/2023 insulin lispro (HUMALOG KWIKPEN) 100 UNIT/ML (1 unit dial) KWIKPENIndications:Ges tational diabetes mellitus (GDM), antepartum, gestational diabetes method of control unspecified Inject 6 Units Subcutaneous daily (with breakfast) 15 mL 3 07/04/2023 07/15/2023 documented as of this encounter Miscellaneous Notes * Result Encounter Note - Renee Bennett MD - 2023 10:29 AM PROPERTY INSURANCE AGENT Dear Yu, Here is a summary of your recent test results: Your biophysical profile looks good and we can further discuss Regarding breech presentation at your next visit. Thank you very much for trusting me and [facility]. Have a peaceful day. Healthy regards, Prasad Bennett MD ERTY INSURANCE AGENT documented in this encounter Plan of Treatment Upcoming Encounters Date Type Department Care Team (Late st Contact Info) Description 07/22/2023 8:45 AM PROPERTY INSURANCE AGENT Appointment [facility] [address] [facility] [address] [place] [phone] Sheila Jones MD [address] [place] [address] 07/22/2023 9:15 AM PROPERTY INSURANCE AGENT Office Visit [facility] [address] [facility] [address] [place] [phone] Sheila Jones MD [address] [place] [address] 07/26/2023 8:00 AM PROPERTY INSURANCE AGENT Appointment [facility] [place] [address] [place] [phone] Jennifer Boyer MD [address] [place] [address] Rayshawn Nunez MD [address] [place] [address] 07/26/2023 8:30 AM PROPERTY INSURANCE AGENT Office [facility] Medicine [place] [address] [facility] [address] [place] [phone] Jennifer Boyer MD [address] [place] [address] Rayshawn Nunez MD [address] [place] [address] 07/29/2023 8:00 AM PROPERTY INSURANCE AGENT Office Visit [address] [phone] Renee Bennett MD [address] [place] [phone] 07/29/2023 11:45 AM PROPERTY INSURANCE AGENT Appointment [facility] [place] [address] [facility] [address] [place] [phone] Jennifer Boyer MD [address] [place], [place] [address] 07/29/2023 12:15 PM PROPERTY INSURANCE AGENT Office Visit [facility] Medicine [place] [address] [facility] [address] [place] [phone] Jennifer Boyer MD [address] [place], [place] [address] 08/05/2023 8:00 AM PROPERTY INSURANCE AGENT Office Visit [facility] [address] [place] [phone] Renee Bennett MD [address] [place] [phone] 08/23/2023 Hospital Encounter [facility] [address] [place] [phone] Renee Bennett MD [address] [place] [address] [phone] documented as of this encounter Procedures Procedure Name Priority Date/Time Associated Diagnosis Comments MFM BPP SINGLE Routine 2023 8:41 AM PROPERTY INSURANCE AGENT Gestational diabetes mellitus (GDM) in third trimester controlled on oral hypoglycemic drug Prior with demise and current in third trimester documented in this encounter Results * Maternal BPP Single (2023 8:41 AM PROPERTY INSURANCE AGENT) Anatomical Region Laterality Modality Ultrasound 2023 8:14 AM PROPERTY INSURANCE AGENT Impressions 2023 8:44 AM PROPERTY INSURANCE AGENT IMPRESSION ----- 1. Brumfield intrauterine at 34w 0d gestational age here for testing. 2. The fetus is in BREECH presentation. The amniotic fluid volume is normal. 3. The BPP is 01/25. Narrative 2023 8:44 AM PROPERTY INSURANCE AGENT ?BPP ----- Pat. Name: YU RENEE ? Study Date: ??2023 8:14am Pat. NO: ??[id number] ?Referring ??MD: RENEE BENNETT Site: ??[facility] ? Insurance Claim Representative: Kirstin Gold RDMS : ??1995 ?Age: ?? 28 ----- INDICATION ----- Gestational Diabetes (GDM) - on Insulin, History of term IUFD METHOD ----- Transabdominal ultrasound examination. View: Sufficient ----- [place] . Number of fetuses: 1 DATING ----- ? Date ?Details ?Gest. age ?[place] LMP ?11/16/2022 ?Cycle: regular cycle ?34 w + 0 d ? 08/23/2023 Prior assessment ? 01/05/2023 ? GA: 7 w + 1 d ?34 w + 0 d ? 08/23/2023 Assigned dating ?Dating performed on 07/01/2023, based on the LMP ?34 w + 0 d ? 08/23/2023 GENERAL EVALUATION ----- Cardiac activity present. FHR 131 bpm. movements visualized. Presentation complete breech. Placenta Anterior. Umbilical cord previously studied. AMNIOTIC FLUID ASSESSMENT ----- Amount of AF: normal MVP 6.0 cm BIOPHYSICAL PROFILE ----- 2: breathing movements 2: Gross body movements 2: tone 2: Amniotic fluid volume 8/8 Biophysical profile score Interpretation: normal RECOMMENDATION ----- Continue with twice weekly due to A2 GDM and history of IUFD at term. Will need to discuss breech presentation with her OB team for next steps. Procedure Note Rayshawn Nunez MD - 2023 BPP ----- Pat. Name: YU RENEE Study Date: 2023 8:14am Pat. NO: [id number] Referring MD: RENEE BENNETT Site: [facility] Insurance Claim Representative: Kirstin Gold RDMS : 1995 Age: 28 ----- INDICATION ----- Gestational Diabetes (GDM) - on Insulin, History of term IUFD METHOD ----- Transabdominal ultrasound examination. View: Sufficient ----- [place] . Number of fetuses: 1 DATING ----- DateDetailsGest. age [place] LMP 11/16/2022ycle: regular cycle34 w + 0 d 08/23/2023 Prior assessment 01/05/2023 GA: 7 w +1 d34 w + 0 d 08/23/2023 Assigned dating Dating performed on 07/01/2023, based onthe LMP 34 w +0 d 08/23/2023 GENERAL EVALUATION ----- Cardiac activity present. FHR 131 bpm. movements visualized. Presentation complete breech. Placenta Anterior. Umbilical cord previously studied. AMNIOTIC FLUID ASSESSMENT ----- Amount of AF: normal MVP 6.0 cm BIOPHYSICAL PROFILE ----- 2: breathing movements 2: Gross body movements 2: tone 2: Amniotic fluid volume 01/25 Biophysical profile score Interpretation: normal RECOMMENDATION ----- Continue with twice weekly due to A2 GDM and history of IUFD at term. Will need to discuss breech presentation with her OB team for nextsteps. IMPRESSION ----- 1. Brumfield intrauterine at 34w 0d gestational age here forantenatal testing. 2. The fetus is in BREECH presentation. The amniotic fluid volume isnormal. 3. The BPP is 8/8. Jennifer Boyer MD IMG MFM US ORDERAB LES documented in this encounter Visit Diagnoses Diagnosis Gestational diabetes mellitus (GDM) in third trimester controlled on oral hypoglycemic drug Prior with demise and current in third trimester documented in this encounter Additional Health Concerns Assessment Noted Time PHQ-9 Depression Total Score: 0 05/17/20 23 9:06 AM PROPERTY INSURANCE AGENT documented as of this encounter Care Teams Life Skills Consultant Relationship Specialty Start Date End Date Renee Bennett MD [address] [place] [phone] PCP - General Family Medicine 07/07/20 Renee Bennett MD [address] [place] [address] Assigned PCP 08/14/[address] [facility] [address] [place] [address] Information Technology Internship Dietitian, Registered 06/14/23 documented as of this encounter
--- OUTSIDE RECORDS SUMMARY | 2023-07-21 13:58 | XMS_ITS | Encounter Summary ---
Author Name Unknown Organization [facility] Address [address] [place] [address] Care Team Providers Care Certified Paralegal Name Role Phone Laureano Bennett MD Primary Care Provider [phone] Laureano Bennett MD Unavailable [phone] Unavailable [phone] Reason for Visit * Reason Comments Care Encounter Details Date Type Department Care Team ([facility] st Contact Info) Description 07/19/2023 4:40 PM BREWERY TECHNICIAN Office Visit [address] [phone] Laureano Bennett MD [address] [place] [address] Encounter for supervision of other normal in third trimester (Primary Dx); 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 Social History Tobacco Use Types Packs/Day Years [...] Comments Blood Pressure 110/58 07/19/2023 4:36 PM BREWERY TECHNICIAN Pulse 92 07/19/2023 4:36 PM BREWERY TECHNICIAN Temperature 36.1 ??C (97 ??F) 07/19/2023 4:36 PM BREWERY TECHNICIAN Respiratory Rate - - Oxygen Saturation 97% 07/19/2023 4:36 PM BREWERY TECHNICIAN Inhaled Oxygen Concentration - - Weight 82.1 kg (181 lb) 07/19/2023 4:36 PM BREWERY TECHNICIAN Height - - Body Mass Index 27.12 07/15/2023 8:48 AM BREWERY TECHNICIAN documented in this encounter Progress Notes * Laureano Bennett MD - 07/19/2023 4:40 PM CST S:Yu Renee is here today for a Visit at 35w0d gestation. Concerns today: Doing well, no concerns - GI Bug Bleeding: No Cramping/Contractions:Yes Leaking of fluid: No Baby moving: Yes O: See OB Vitals ASSESSMENT:/PLAN: Overall doing good. Previously breech and was cephalic on 1 biophysical profile visit and most recently transverse lie. Today she feels like she is in a cephalic position but has BPP later this week. Prior history of stillbirth. Continue to monitor kick counts and regular BPP's at [facility]. She would like to labor in a bath tub and is meeting a provider at the [facility] to discuss options there Return in 1 week GBS at 36 weeks is planned ERY TECHNICIAN documented in this encounter Plan of Treatment Upcoming Encounters Date Type Department Care Team (Late st Contact Info) Description 07/22/2023 8:45 AM BREWERY TECHNICIAN Appointment [facility] M[facility] Medicine [place] [address] [facility] [address] [place] [phone] Sheila Jones MD [address] [place], [place] [phone] 07/22/2023 9:15 AM BREWERY TECHNICIAN Office Visit [facility] Maternal Medicine [place] [address] [address] [facility] [address] [place] [phone] Sheila Jones MD [address] [place] [address] 07/26/2023 8:00 AM BREWERY TECHNICIAN Appointment [facility] [place] [address] [facility] [address] [place] [phone] Jennifer Boyer MD [address] [place], [place] [address] Rayshawn Nunez MD [address] [place] [address] 07/26/2023 8:30 AM BREWERY TECHNICIAN Office Visit [facility] Maternal Medicine [place] [address] [place] [phone] Jennifer Boyer MD [address] [place] [address] Rayshawn Nunez MD [address] [place] [address] 07/29/2023 8:00 AM BREWERY TECHNICIAN Office Visit [address] [phone] Laureano Bennett MD [address] [place] [phone] 07/29/2023 11:45 AM BREWERY TECHNICIAN Appointment [facility] Medicine [place] [address] [facility] [address] [place] [phone] Jennifer Boyer MD [address] [place] [address] 07/29/2023 12:15 PM BREWERY TECHNICIAN Office Visit [facility] Medicine [place] [address] [facility] [address] [place] [phone] Jennifer Boyer MD [address] [place] [address] 08/05/2023 8:00 AM BREWERY TECHNICIAN Office Visit [address] [phone] Laureano Bennett MD [address] [place] [phone] 08/23/2023 Hospital Encounter [facility] [address] [place] [phone] Laureano Bennett MD [address] [place] [address] [phone] documented as of this encounter Procedures Procedure Name Priority Date/Time Associated Diagnosis Comments GLUCOSE ALBUMIN OB URINE Routine 07/19/2023 4:28 PM BREWERY TECHNICIAN Encounter for supervision of other normal in third trimester documented in this encounter Results * Glucose and albumin, OB urine (07/19/2023 4:28 PM BREWERY TECHNICIAN) Protein Albumin Urine Negative Negative mg/dL 07/19/2023 4:30 PM BREWERY TECHNICIAN [facility] Glucose Urine Negative Negative mg/dL 07/19/2023 4:30 PM BREWERY TECHNICIAN [facility] Urine MID-STREAM URINE SPECIMEN / Unknown Non-blood Collection / Unknown 07/19/2023 4:28 PM BREWERY TECHNICIAN 07/19/2023 4:28 PM BREWERY TECHNICIAN Laureano Bennett MD LAB - URINE ORDERABL ES [facility] [address] [place] [address] Lab (no room number, 1st floor of clinic) [place] [address] [phone] documented in this encounter Visit Diagnoses Diagnosis Encounter for supervision of other normal in third trimester- Primary 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 documented in this encounter Additional Health Concerns Assessment Noted Time PHQ-9 Depression Total Score: 0 05/17/20 23 9:06 AM BREWERY TECHNICIAN documented as of this encounter Care Teams Certified Paralegal Relationship Specialty Start Date End Date Laureano Bennett MD [address] [place] [address] PCP - General Family Medicine 07/07/20 Laureano Bennett MD [address] [place] [address] Assigned PCP 08/14/[address] [facility] [address] [address] [place] [address] Aircraft Quality Control Inspector Dietitian, Registered 06/14/23 documented as of this encounter
--- OUTSIDE RECORDS SUMMARY | 2023-07-21 13:58 | XMS_ITS | Encounter Summary ---
Author Name Unknown Organization [place] Address [address] [facility] [place] [address] Care Team Providers Care Board Setter Name Role Phone Laureano Bennett MD Primary Care Provider [phone] Laureano Bennett MD Unavailable [phone] Unavailable [phone] Reason for Visit * Reason Onset Date Comments Decreased Movement 07/08/2023 Encounter Details Date Type Department Care Team ([facility] Contact Info) Description 07/08/2023 Telephone [facility] [place] [address] [facility] [address] [place] [address] Chyna Garcia RN Decreased Movement Social History Tobacco Use Types Packs/Day Years [...] on file documented as of this encounter Miscellaneous Notes * Telephone Encounter - Chyna Garcia RN - 07/08/2023 3:50 PM CST Yu called the MFM clinic to be advised where to be evaluated for decreased movement. Advised Yu to call her primary OB clinic to notify them she is heading into [facility] labor and delivery DINH for an NST. Pt verbalized understanding. Chyna Garcia RN ORK SECURITY ENGINEER documented in this encounter Plan of Treatment Upcoming Encounters Date Type Department Care Team (Late st Contact Info) Description 07/22/2023 8:45 AM NETWORK SECURITY ENGINEER Appointment [facility] M[facility] Medicine [place] [address] [facility] [address] [place] [phone] Sheila Jones MD [address] [place] [address] 07/22/2023 9:15 AM NETWORK SECURITY ENGINEER Office Visit [facility] Maternal Medicine [facility] [address] [facility] [address] [place] [phone] Sheila Jones MD [address] [place] [address] 07/26/2023 8:00 AM NETWORK SECURITY ENGINEER Appointment [facility] Maternal Medicine [facility] [address] [facility] [address] [place] [phone] Jennifer Boyer MD [address] [place] [address] Rayshawn Nunez MD [address] [place] [address] 07/26/2023 8:30 AM NETWORK SECURITY ENGINEER Office Visit [facility] Medicine [place] [address] [facility] [address] [place] [phone] Jennifer Boyer MD [address] [place], [place] [address] Rayshawn Nunez MD [address] [place], [place] [address] 07/29/2023 8:00 AM NETWORK SECURITY ENGINEER Office Visit [address] [phone] Laureano Bennett MD [address] [place] [address] [phone] 07/29/2023 11:45 AM NETWORK SECURITY ENGINEER Appointment [facility] Maternal Medicine [place] [address] [facility] [address] [place] [phone] Jennifer Boyer MD [address] [place] [address] 07/29/2023 12:15 PM NETWORK SECURITY ENGINEER Office Visit [facility] Medicine [place] [address] [facility] [address] [place] [phone] Jennifer Boyer MD [address] [address] 08/05/2023 8:00 AM NETWORK SECURITY ENGINEER Office Visit [address] [phone] Laureano Bennett MD [address] [place] [address] [phone] 08/23/2023 Hospital Encounter [facility] [address] [place] [phone] Laureano Bennett MD [address] [place] [address] [phone] documented as of this encounter Visit Diagnoses Not on filedocumented in this encounter Additional Health Concerns Assessment Noted Time PHQ-9 Depression Total Score: 0 05/17/20 23 9:06 AM NETWORK SECURITY ENGINEER documented as of this encounter Care Teams Board Setter Relationship Specialty Start Date End Date Laureano Bennett MD [address] [place] [address] [phone] PCP - General Family Medicine 07/07/20 Laureano Bennett MD [address] [place] [address] 395872 Assigned PCP 08/14/[address] [facility] [address] [place] [address] Floorworker Lasting Dietitian, Registered 06/14/23 documented as of this encounter
--- OUTSIDE RECORDS SUMMARY | 2023-07-21 13:58 | XMS_ITS | Encounter Summary ---
Author Name Unknown Organization [facility] Address [address] [place] [id number] Care Team Providers Care Escrow Assistant Name Role Phone Laureano Bennett MD Primary Care Provider [phone] Laureano Bennett MD Unavailable [phone] Unavailable [phone] Encounter Details Date Type Department Care Team ([facility] Contact Info) Description 07/15/2023 8:40 AM DEMO COORDINATOR Office Visit [address] [phone] Laureano Bennett MD [address] [place] [address] Encounter for supervision of other normal in second trimester (Primary Dx); Gestational diabetes mellitus (GDM), antepartum, gestational diabetes method of control unspecified Social History Tobacco Use Types Packs/Day Years [...] Sign Reading Time Taken Comments Blood Pressure 126/74 07/15/2023 8:48 AM DEMO COORDINATOR Pulse 78 07/15/2023 8:48 AM DEMO COORDINATOR Temperature 36.4 ??C (97.6 ??F) 07/15/2023 8:48 AM CS T Respiratory Rate 16 07/15/2023 8:48 AM DEMO COORDINATOR Oxygen Saturation 99% 07/15/2023 8:48 AM DEMO COORDINATOR Inhaled Oxygen Concentration - - Weight 80.7 kg (178 lb) 07/15/2023 8:48 AM DEMO COORDINATOR Height 174 cm (5' 8.5) 07/15/2023 8:48 AM DEMO COORDINATOR Body Mass Index 26.67 07/15/2023 8:48 AM DEMO COORDINATOR documented in this encounter Progress Notes * Laureano Bennett MD - 07/15/2023 8:40 AM CST S:Yu Renee is here today for a Visit at 34w3d gestation. Concerns today: Less movement, swelling since last week, and would like to up dose for insulin, would like more info on when to deliver baby, and breech noted at [facility] scheduling version Gest diabetes - eating ok and acting- some morning sugars have been slight over 100. Lantus 16 units currently Bleeding: No Cramping/Contractions:Yes nothing concerning Leaking of fluid: No Baby moving: Yes-not as much O: See OB Vitals ASSESSMENT:/PLAN: Maternal Medicine- BPP today ECV at 37 week if needed Insulin increase lantus to 17 units and start Humalog 2-6 units in am and dinner if needed Return in 1 weeks COORDINATOR documented in this encounter Plan of Treatment Upcoming Encounters Date Type Department Care Team (Late st Contact Info) Description 07/22/2023 8:45 AM DEMO COORDINATOR Appointment [facility] [place] [address] [address] [facility] [address] [place] [address] [phone] Sheila Jones MD [address] [place], [place] [phone] 07/22/2023 9:15 AM DEMO COORDINATOR Office Visit [facility] [place] [address] [address] [facility] [address] [place] [address] [phone] Sheila Jones MD [address] [place], [place] [phone] 07/26/2023 8:00 AM DEMO COORDINATOR Appointment [facility] [place] [address] [facility] [address] [place] [address] [phone] Jennifer Boyer MD [address] [place], [place] [phone] Rayshawn Nunez MD [address] [place], [place] [address] 07/26/2023 8:30 AM DEMO COORDINATOR Office Visit [facility] [place] [address] [facility] [address] [place] [address] [phone] Jennifer Boyer MD [address] [place], [place] [phone] Rayshawn Nunez MD [address] [place] [address] 07/29/2023 8:00 AM DEMO COORDINATOR Office Visit [address] [phone] Laureano Bennett MD [address] [place] [address] [phone] 07/29/2023 11:45 AM DEMO COORDINATOR Appointment [facility] [address] [facility] [address] [place] [phone] Jennifer Boyer MD [address] [place] [address] 07/29/2023 12:15 PM DEMO COORDINATOR Office Visit [facility] [address] [facility] [address] [place] [phone] Jennifer Boyer MD [address] [place] [address] 08/05/2023 8:00 AM DEMO COORDINATOR Office Visit [address] [phone] Laureano Bennett MD [address] [place] [address] [phone] 08/23/[address] [facility] [address] [place] [phone] Laureano Bennett MD [address] [place] [address] [phone] documented as of this encounter Procedures Procedure Name Priority Date/Time Associated Diagnosis Comments GLUCOSE ALBUMIN OB URINE Routine 07/15/2023 8:30 AM DEMO COORDINATOR Encounter for supervision of other normal in second trimester documented in this encounter Results * Glucose and albumin, OB urine (07/15/2023 8:30 AM DEMO COORDINATOR) Protein Albumin Urine Negative Negative mg/dL 07/15/2023 8:59 AM DEMO COORDINATOR [facility] Glucose Urine Negative Negative mg/dL 07/15/2023 8:59 AM DEMO COORDINATOR [facility] Urine MID-STREAM URINE SPECIMEN / Unknown Non-blood Collection / Unknown 07/15/2023 8:30 AM DEMO COORDINATOR 07/15/2023 8:56 AM DEMO COORDINATOR Laureano Bennett MD LAB - URINE ORDERABL ES [facility] [address] [place] [address] Lab (no room number, 1st floor of clinic) [place] [phone], [facility] [phone] documented in this encounter Visit Diagnoses Diagnosis Encounter for supervision of other normal in second trimester- Primary Gestational diabetes mellitus (GDM), antepartum, gestational diabetes method of control unspecified documented in this encounter Additional Health Concerns Assessment Noted Time PHQ-9 Depression Total Score: 0 05/17/20 23 9:06 AM DEMO COORDINATOR documented as of this encounter Care Teams Escrow Assistant Relationship Specialty Start Date End Date Laureano Bennett MD [address] [place] [address] 22185 PCP - General Family Medicine 07/07/20 Laureano Bennett MD [address] [place] [address] 76870 Assigned PCP 08/14/[address] [facility] [address] L[place]RI BRYAN [address] Field Assistant Dietitian, Registered 06/14/23 documented as of this encounter
--- OUTSIDE RECORDS SUMMARY | 2023-07-21 13:59 | XMS_ITS | Encounter Summary ---
Author Name Unknown Organization [facility] Address [address] [facility] [place] [address] Care Team Providers Care Recording Studio Internship Name Role Phone Laureano Bennett MD Primary Care Provider [phone] Laureano Bennett MD Unavailable [phone] Unavailable [phone] Reason for Visit * Reason Comments Ultrasound BPP-GDMA2, hx term I UFD Encounter Details Date Type Department Care Team ([facility] st Contact Info) Description 07/06/2023 4:00 PM CLAM DIGGER Office Visit [facility] [place] [address] [facility] [address] [place] [phone] Tyshawn Mccurdy MD [address] [place] [address] Gestational diabetes mellitus (GDM) in [...] Progress Notes * Tyshawn Mccurdy MD - 07/06/2023 4:00 PM CST Please see Imaging tab under Chart Review for details of today's US at the [facility]. Tyshawn Mccurdy MD Maternal- Medicine DIGGER documented in this encounter Nursing Notes * Addis Olivares RN - 07/06/2023 4:00 PM CST Patient presents to [facility] for BPP at 33w1d due to GDMA2, hx term IUFD. Positive movement. Denies LOF, vaginal bleeding or cramping/contractions. Reports blood sugar values fasting <95 and 1 hrpost prandial <140. SBAR given to [facility] , see their note in Epic. DIGGER documented in this encounter Plan of Treatment Upcoming Encounters Date Type Department Care Team (Late st Contact Info) Description 07/22/2023 8:45 AM CLAM DIGGER Appointment [facility] [place] [address] [facility] [address] [place] [phone] Sheila Jones MD [address] [place] [address] 07/22/2023 9:15 AM CLAM DIGGER Office Visit [facility] [place] [address] [facility] [address] [place] [phone] Sheila Jones MD [address] [place] [address] 07/26/2023 8:00 AM CLAM DIGGER Appointment [facility] Maternal Medicine [place] [address] [address] [facility] [address] [place] [address] [phone] Jennifer Boyer MD [address] [place], [place] [phone] Rayshawn Nunez MD [address] [place] [address] 07/26/2023 8:30 AM CLAM DIGGER Office Visit [facility] [place] [address] [address] [facility] [address] [place] [phone] Jennifer Boyer MD [address] [place] [address] Rayshawn Nunez MD [address] [place] [address] 07/29/2023 8:00 AM CLAM DIGGER Office Visit [address] [phone] Laureano Bennett MD [address] [place] [address] [phone] 07/29/2023 11:45 AM CLAM DIGGER Appointment [facility]aternal Medicine [facility] [address] [facility] [address] [place] [phone] Jennifer Boyer MD [address] [place] [address] 07/29/2023 12:15 PM CLAM DIGGER Office Visit [facility] [address] [facility] [address] [place] [phone] Jennifer Boyer MD [address] [place] [address] 08/05/2023 8:00 AM CLAM DIGGER Office Visit [address] [place] [phone] Laureano Bennett MD [address] [place] [address] 08/23/2023 Hospital Encounter [facility] [address] [place] [phone] Laureano Bennett MD [address] [place] [address] [phone] documented as of this encounter Visit Diagnoses Diagnosis Gestational diabetes mellitus (GDM) in third trimester controlled on oral hypoglycemic drug- Primary Prior with demise and current in third trimester documented in this encounter Additional Health Concerns Assessment Noted Time PHQ-9 Depression Total Score: 0 05/17/20 23 9:06 AM CLAM DIGGER documented as of this encounter Care Teams Recording Studio Internship Relationship Specialty Start Date End Date Laureano Bennett MD [address] [place] [address] [phone] PCP - General Family Medicine 07/07/20 [place] [address] [place] [address] [phone] Assigned PCP 08/14/[address] [facility] [address] [place] [address] Gum Dipper Dietitian, Registered 06/14/23 documented as of this encounter
--- OUTSIDE RECORDS SUMMARY | 2023-07-21 13:59 | XMS_ITS | Encounter Summary ---
Author Name Unknown Organization [place] Address [address] [facility] [place] [address] Care Team Providers Care Customs Investigator Name Role Phone Laureano Bennett MD Primary Care Provider [phone] Laureano Bennett MD Unavailable [phone] Unavailable [phone] Reason for Visit * Reason Onset Date Comments Decreased Movement 07/08/2023 Encounter Details Date Type Department Care Team ([facility] Contact Info) Description 07/08/2023 Telephone [facility] [place] [address] [facility] [address] [place] [address] Chyna Garcia RN Decreased Movement [...] Encounter - Chyna Garcia RN - 07/08/2023 3:45 PM CST Yu called the MFM clinic to inquire where to be evaluated for decreased movement. Advisedpt to notify primary OB clinic and to come to [facility] labor and delivery johnny for an NST. Pt verbalized understanding. Chyna Garcia RN NT LOADER documented in this encounter Plan of Treatment Upcoming Encounters Date Type Department Care Team (Late st Contact Info) Description 07/22/2023 8:45 AM CEMENT LOADER Appointment [facility] Maternal Medicine [place] [address] [facility] [address] [place] [phone] Sheila Jones MD [address] [place] [address] 07/22/2023 9:15 AM CEMENT LOADER Office Visit [facility] Maternal Medicine [place] [address] [facility] [address] [place] [phone] Sheila Jones MD [address] [place] [address] 07/26/2023 8:00 AM CEMENT LOADER Appointment [facility] Maternal Medicine [place] [address] [facility] [address] [place] [phone] Jennifer Boyer MD [address] [place] [address] Rayshawn Nunez MD [address] [place] [address] 07/26/2023 8:30 AM CEMENT LOADER Office Visit [facility]aternal Medicine [place] [address] [address] [facility] [address] [place] [phone] Jennifer Boyer MD [address] [place], [place] [address] Rayshawn Nunez MD [address] [place], [place] [address] 07/29/2023 8:00 AM CEMENT LOADER Office Visit [address] [phone] Laureano Bennett MD [address] [place] [address] 07/29/2023 11:45 AM CEMENT LOADER Appointment [facility] Maternal Medicine [place] [address] [place] [phone] Jennifer Boyer MD [address] [place] [address] 07/29/2023 12:15 PM CEMENT LOADER Office Visit [facility] Medicine [place] [address] [place] [phone] Jennifer Boyer MD [address] [place] [address] 08/05/2023 8:00 AM CEMENT LOADER Office Visit [address] [place] [phone] Laureano Bennett MD [address] [place] [address] [phone] 08/23/[address] [facility] [address] [place] [phone] Laureano Bennett MD [address] [place] [address] [phone] documented as of this encounter Visit Diagnoses Not on filedocumented in this encounter Additional Health Concerns Assessment Noted Time PHQ-9 Depression Total Score: 0 05/17/20 9:06 AM CEMENT LOADER documented as of this encounter Care Teams Customs Investigator Relationship Specialty Start Date End Date Laureano Bennett MD [address] [place] [address] [phone] PCP - General Family Medicine 07/07/20 Laureano Bennett MD [address] [place] [address] Assigned PCP 08/14/[address] [facility] [address] [place] [address] Sponge Press Operator Dietitian, Registered 06/14/23 documented as of this encounter
--- OUTSIDE RECORDS SUMMARY | 2023-07-21 13:59 | XMS_ITS | Encounter Summary ---
Author Name Unknown Organization [facility] Address [address] [place] [address] Care Team Providers Care City Designer Name Role Phone Laureano Bennett MD Primary Care Provider [phone] Laureano Bennett MD Unavailable [phone] Unavailable [phone] Reason for Visit * Reason Comments Care Encounter Details Date Type Department Care Team ([facility] st Contact Info) Description 07/04/2023 8:20 AM CRAFT CENTER DIRECTOR Office Visit [address] [phone] Laureano Bennett MD [address] [place] [address] Encounter for supervision of other normal in second trimester (Primary Dx); Gestational diabetes mellitus (GDM), antepartum, gestational diabetes method of control unspecified; History of stillbirth Social History Tobacco Use Types Packs/Day Years [...] Sign Reading Time Taken Comments Blood Pressure 110/64 07/04/2023 8:18 AM CRAFT CENTER DIRECTOR Pulse 102 07/04/2023 8:18 AM CRAFT CENTER DIRECTOR Temperature 36.1 ??C (97 ??F) 07/04/2023 8:18 AM CRAFT CENTER DIRECTOR Respiratory Rate 16 07/04/2023 8:18 AM CRAFT CENTER DIRECTOR Oxygen Saturation 99% 07/04/2023 8:18 AM CRAFT CENTER DIRECTOR Inhaled Oxygen Concentration - - Weight 80.3 kg (177 lb) 07/04/2023 8:18 AM CRAFT CENTER DIRECTOR Height 174 cm (5' 8.5) 07/04/2023 8:18 AM CRAFT CENTER DIRECTOR Body Mass Index 26.52 07/04/2023 8:18 AM CRAFT CENTER DIRECTOR documented in this encounter Progress Notes * Laureano Bennett MD - 07/04/2023 8:20 AM CST S:Yu Renee is here today for a Visit at 32w6d gestation. Concerns today: Metformin medication does not seem to be working - glucose middle of the night ~114, AM glucose 94-112 (this am); postprandial near goal Bleeding: No Cramping/Contractions:No Leaking of fluid: No Baby moving: Yes O: See OB Vitals ASSESSMENT:/PLAN: Return in 1 week Stop metformin and start insulin: Lantus 0.2 units/kg/day = 16 units in the AM for this week, If postprandial glucose is still elevated after using this dose for ~ 4-7 days then will add Humalog. Also recommended checking back in with diabetic education. Hypoglycemia treatment options dicussed as well. T CENTER DIRECTOR documented in this encounter Miscellaneous Notes * Result Encounter Note - Laureano Bennett MD - 07/04/2023 8:20 AM CRAFT CENTER DIRECTOR Dear Yu, Here is a summary of your recent test results: -All of your labs are normal in regards to antiphospholipid syndrome For additional lab test information, www.testing.com is a very good reference. Thank you very much for trusting me and [facility]. Have a peaceful day. Healthy regards, Prasad Bennett MD T CENTER DIRECTOR documented in this encounter Plan of Treatment Upcoming Encounters Date Type Department Care Team (Late st Contact Info) Description 07/22/2023 8:45 AM CRAFT CENTER DIRECTOR Appointment [facility] [place] [address] [facility] [address] [place] [address] [phone] Sheila Jones MD [address] [place], [place] [address] 07/22/2023 9:15 AM CRAFT CENTER DIRECTOR Office Visit [facility] [place] [address] [facility] [address] [place] [phone] Sheila Jones MD [address] [place], [place] [phone] 07/26/2023 8:00 AM CRAFT CENTER DIRECTOR Appointment [facility] Medicine [place] [address] [place] [phone] Jennifer Boyer MD [address] [place] [address] Rayshawn Nunez MD [address] [place] [address] 07/26/2023 8:30 AM CRAFT CENTER DIRECTOR Office Visit [facility] [place] [address] [facility] [address] [place] [phone] Jennifer Boyer MD [address] [place] [address] Rayshawn Nunez MD [address] [place] [address] 07/29/2023 8:00 AM CRAFT CENTER DIRECTOR Office Visit [address] [phone] Laureano Bennett MD [address] [place] [address] 07/29/2023 11:45 AM CRAFT CENTER DIRECTOR Appointment [facility] Medicine [place] [address] [facility] [address] [place] [phone] Jennifer Boyer MD [address] [place] [address] 07/29/2023 12:15 PM CRAFT CENTER DIRECTOR Office Visit [facility] M[facility] Medicine [place] [address] [address] [facility] [address] [place] [phone] Jennifer Boyer MD [address] [place] [address] 08/05/2023 8:00 AM CRAFT CENTER DIRECTOR Office Visit [facility] [address] [place] [phone] [place] [address] [place] [address] [phone] 08/23/2023 Hospital Encounter [facility] [address] [place] [phone] [place] [address] [place] [address] [phone] documented as of this encounter Procedures Procedure Name Priority Date/Time Associated Diagnosis Comments CARDIOLIPIN BRENDEN IGG AND IGM Routine 07/04/2023 9:42 AM CRAFT CENTER DIRECTOR History of stillbirth BETA 2 GLYCOPROTEIN ANTIBODIES IGG IGM Routine 07/04/2023 9:42 AM CRAFT CENTER DIRECTOR History of stillbirth LUPUS ANTICOAGULANT PANEL Routine 07/04/2023 9:42 AM CRAFT CENTER DIRECTOR History of stillbirth GLUCOSE ALBUMIN OB URINE Routine 07/04/2023 8:20 AM CRAFT CENTER DIRECTOR Encounter for supervision of other normal in second trimester documented in this encounter Results * Beta 2 Glycoprotein Antibodies IGG IGM (07/04/2023 9:42 AM CRAFT CENTER DIRECTOR) Beta 2 Glycoprotein 1 Antibody IgG 1.0 <7.0 U/mL 07/06/2023 11:27 AM CRAFT CENTER DIRECTOR SPECIALTY CORE/PROT/END O Comment:Negative Beta 2 Glycoprotein 1 Antibody IgM 3.3 <7.0 U/mL 07/06/2023 11:27 AM CRAFT CENTER DIRECTOR SPECIALTY CORE/PROT/END O Comment:Negative Blood BLOOD SPECIMEN / Unknown Venipuncture / Unknown 07/04/2023 9:42 AM CRAFT CENTER DIRECTOR 07/04/2023 9:43 AM CRAFT CENTER DIRECTOR Laureano Bennett MD LAB - BLOOD ORDERABL ES UM SPECIALTY CORE/PROT/ENDO UM Specialty Core/Prot/Endo [address] [facility] [address], [address] [place] [address], [facility] [phone] * Cardiolipin Brenden IgG and IgM (07/04/2023 9:42 AM CRAFT CENTER DIRECTOR) Cardiolipin Brenden IgG Instrument Value <2.0 <10.0 GPL-U/mL 07/06/2023 11:27 AM CRAFT CENTER DIRECTOR UM SPECIALTY CORE/PROT/END O Cardiolipin Antibody IgG Negative Negative 07/06/2023 11:27 AM CRAFT CENTER DIRECTOR UM SPECIALTY CORE/PROT/END O Cardiolipin Brenden IgM Instrument Value 2.2 <10.0 MPL-U/mL 07/06/2023 11:27 AM CRAFT CENTER DIRECTOR UM SPECIALTY CORE/PROT/END O Cardiolipin Antibody IgM Negative Negative 07/06/2023 11:27 AM CRAFT CENTER DIRECTOR SPECIALTY CORE/PROT/END O Blood BLOOD SPECIMEN / Unknown Venipuncture / Unknown 07/04/2023 9:42 AM CRAFT CENTER DIRECTOR 07/04/2023 9:43 AM CRAFT CENTER DIRECTOR Laureano Bennett MD LAB - BLOOD ORDERABL ES UM SPECIALTY CORE/PROT/ENDO Specialty Core/Prot/Endo [address] [facility], [address] [place] [address], [facility] [phone] * Lupus Anticoagulant Panel (07/04/2023 9:42 AM CRAFT CENTER DIRECTOR) INR 1.04 0.85 - 1.15 4 4:15 PM CRAFT CENTER DIRECTOR UM SPECIAL COAGULATION Thrombin Time 17.0 13.0 - 19.0 Seconds 4 4:15 PM CRAFT CENTER DIRECTOR UM SPECIAL COAGULATION PTT Ratio 0.97 <1.21 4 4:15 PM CRAFT CENTER DIRECTOR UM SPECIAL COAGULATION DRVVT Screen Ratio 0.91 <1.08 4 4:15 PM CRAFT CENTER DIRECTOR [facility] SPECIAL COAGULATION Lupus Result Negative Negative 4 4:15 PM CRAFT CENTER DIRECTOR UM SPECIAL COAGULATION Lupus Interpretation The INR is normal. APTT ratio is normal. ?? DRVVT Screen ratio is normal. Thrombin time is normal. NEGATIVE TEST; A LUPUS ANTICOAGULANT WAS NOT DETECTED IN THIS SPECIMEN WITHIN THE LIMITS OF THE TESTING REPERTOIRE. If the clinical picture is strongly suggestive of an antiphospholipid syndrome, recommend anticardiolipin and [id number] n (IgG and IgM) antibody tests. Salina James MD, PhD [facility] 4:15 PM CRAFT CENTER DIRECTOR UM SPECIAL COAGULATION Blood BLOOD SPECIMEN / Unknown Venipuncture / Unknown 07/04/2023 9:42 AM CRAFT CENTER DIRECTOR 07/04/2023 9:43 AM CRAFT CENTER DIRECTOR Laureano Bennett MD LAB - BLOOD ORDERABL ES UM SPECIAL COAGULATION UM Special Coagulation [address] [facility] [address] [place] [address], [facility] [phone] * (ABNORMAL) Glucose and albumin, OB urine (07/04/2023 8:20 AM CRAFT CENTER DIRECTOR) Protein Albumin Urine Trace(A) Negative mg/dL 07/04/2023 8:22 AM CRAFT CENTER DIRECTOR [facility] Glucose Urine Negative Negative mg/dL 07/04/2023 8:22 AM CRAFT CENTER DIRECTOR [facility] Urine MID-STREAM URINE SPECIMEN / Unknown Non-blood Collection / Unknown 07/04/2023 8:20 AM CRAFT CENTER DIRECTOR 07/04/2023 8:20 AM CRAFT CENTER DIRECTOR Laureano Bennett MD LAB - URINE ORDERABL ES LABORATORY [facility] [address] [facility] [address] Lab (no room number, 1st floor of clinic) [place] [address], [place] [phone] documented in this encounter Visit Diagnoses Diagnosis Encounter for supervision of other normal in second trimester- Primary Gestational diabetes mellitus (GDM), antepartum, gestational diabetes method of control unspecified History of stillbirth with other poor reproductive history documented in this encounter Additional Health Concerns Assessment Noted Time PHQ-9 Depression Total Score: 0 05/17/20 23 9:06 AM CRAFT CENTER DIRECTOR documented as of this encounter Care Teams City Designer Relationship Specialty Start Date End Date Laureano Bennett MD [address] [place], [place] [phone] PCP - General Family Medicine 07/07/20 [place] [address] [place] [address] [phone] Assigned PCP 08/14/[address] [facility] [address] [place] [address] Electric Solderer Dietitian, Registered 06/14/23 documented as of this encounter
--- OUTSIDE RECORDS SUMMARY | 2023-07-21 13:59 | XMS_ITS | Encounter Summary ---
Author Name Unknown Organization [facility] Address [address] [facility] [place] [address] Care Team Providers Care Nick Setter Name Role Phone Laureano Bennett MD Primary Care Provider [phone] Laureano Bennett MD Unavailable [phone] Unavailable [phone] Encounter Details Date Type Department Care Team (Latest Contact Info) Description 07/06/2023 Travel Social History Tobacco Use Types Packs/Day [...] st Contact Info) Description 07/22/2023 8:45 AM RAILROAD EMERGENCY SERVICES MANAGER Appointment [facility] Maternal Medicine [place] [address] [address] [facility] [address] [place] [phone] Sheila Jones MD [address] [place], [place] [address] 07/22/2023 9:15 AM RAILROAD EMERGENCY SERVICES MANAGER Office Visit [facility]aternal Medicine [place] [address] [address] [facility] [address] [place] [phone] Sheila Jones MD [address] [place], [place] [phone] 07/26/2023 8:00 AM RAILROAD EMERGENCY SERVICES MANAGER Appointment [facility] Maternal Medicine [place] [address] [address] [facility] [address] [place] [phone] Jennifer Boyer MD [address] [place], [place] [phone] Rayshawn Nunez MD [address] [place], [place] [phone] 07/26/2023 8:30 AM RAILROAD EMERGENCY SERVICES MANAGER Office Visit [facility] Maternal Medicine [place] [address] [address] [facility] [address] [place] [phone] Jennifer Boyer MD [address] [place], [place] [address] Rayshawn Nunez MD [address] [place] [address] 07/29/2023 8:00 AM RAILROAD EMERGENCY SERVICES MANAGER Office Visit [address] [phone] Laureano Bennett MD [address] [place] [address] [phone] 07/29/2023 11:45 AM RAILROAD EMERGENCY SERVICES MANAGER Appointment [facility] Maternal Medicine [facility] [address] [facility] [address] [place] [phone] Jennifer Boyer MD [address] [place] [address] 07/29/2023 12:15 PM RAILROAD EMERGENCY SERVICES MANAGER Office Visit [facility] Maternal Medicine [facility] [address] [facility] [address] [place] [phone] Jennifer Boyer MD [address] [place] [address] 08/05/2023 8:00 AM RAILROAD EMERGENCY SERVICES MANAGER Office Visit [address] [phone] Laureano Bennett MD [address] [place] [address] [phone] 08/23/2023 Hospital Encounter [facility] [address] [place] [phone] Laureano Bennett MD [address] [place] [address] [phone] documented as of this encounter Visit Diagnoses Not on filedocumented in this encounter Additional Health Concerns Assessment Noted Time PHQ-9 Depression Total Score: 0 05/17/20 23 9:06 AM RAILROAD EMERGENCY SERVICES MANAGER documented as of this encounter Care Teams Nick Setter Relationship Specialty Start [place] [address] [place] [address] [phone] PCP - General Family Medicine 07/07/20 Laureano Bennett MD [address] [place] [address] [phone] Assigned PCP 08/14/[address] [place] [address] Hot Tamale Man Dietitian, Registered 06/14/23 documented as of this encounter
--- OUTSIDE RECORDS SUMMARY | 2023-07-21 13:59 | XMS_ITS | Encounter Summary ---
Author Name Unknown Organization [place] Address [facility] [place] [address] Care Team Providers Care Overlock Collar Setter Name Role Phone Laureano Bennett MD Primary Care Provider Laureano Bennett MD Unavailable [phone] Unavailable [phone] Reason for Visit * Reason Comments Decreased Movement Encounter Details Date Type Department Care Team (Late st Contact Info) Description 07/08/2023 4:10 PM OPERATIONS CLERK - 07/08/2023 5:05 PM OPERATIONS CLERK Hospital Encounter [facility] [address] [place] [phone] Laureano Bennett MD [address] [place] [address] Discharge Disposition: Home or Self Care Social [...] Sign Reading Time Taken Comments Blood Pressure 131/59 07/08/2023 4:32 PM OPERATIONS CLERK Pulse 64 07/08/2023 4:32 PM OPERATIONS CLERK Temperature 36.7 ??C (98.1 ??F) 07/08/2023 4:32 PM CS T Respiratory Rate 16 07/08/2023 4:32 PM OPERATIONS CLERK Oxygen Saturation - - Inhaled Oxygen Concentration - - Weight - - Height - - Body Mass Index - - documented in this encounter Discharge Instructions * Discharge Instructions* Beverley Kennedy RN - 07/08/2023 5:00 PM OPERATIONS CLERK Learning About When to Call Your Doctor During (After 20 Weeks) Overview It's common to have concerns about what might be a problem when you're . Most pregnancies don't have any serious problems. But it's still important to know when to call your doctor if you have certain symptoms or signs of labor. These are general suggestions. Your doctor may give you some more information about when to call. When to call your doctor (after 20 weeks) Call 911 anytime you think you may need emergency care. For example, call if: You have severe vaginal bleeding. This means you are soaking through a pad each hour for 2 or more hours. You have sudden, severe pain in your belly. You have chest pain, are short of breath, or cough up blood. You passed out (lost consciousness). You have a seizure. You see or feel the umbilical cord. You think you are about to deliver your baby and can't make it safely to the hospital or birthing center. Call your doctor now or seek immediate medical care if: You have vaginal bleeding. You have belly pain. You have a fever. You are dizzy or lightheaded, or you feel like you may faint. You have signs of a blood clot in your leg (called a deep vein thrombosis), such as: Pain in the calf, back of the knee, thigh, or groin. Swelling in your leg or groin. A color change on the leg or groin. The skin may be reddish or purplish, depending on your usual skin color. You have symptoms of preeclampsia, such as: Sudden swelling of your face, hands, or feet. New vision problems (such as dimness, blurring, or seeing spots). A severe headache. You have a sudden release of fluid from your vagina. (You think your water broke.) You've been having regular contractions for an hour. This means that you've had at least 6 contractions within 1 hour, even after you change your position and drink fluids. You notice that your baby has stopped moving or is moving less than normal. You have signs of heart failure, such as: New or increased shortness of breath. New or worse swelling in your legs, ankles, or feet. Sudden weight gain, such as more than 2 to 3 pounds in a day or 5 pounds in a week. Feeling so tired or weak that you cannot do your usual activities. You have symptoms of a urinary tract infection. These may include: Pain or burning when you urinate. A frequent need to urinate without being able to pass much urine. Pain in the flank, which is just below the rib cage and above the waist on either side of the back. Blood in your urine. Watch closely for changes in your health, and be sure to contact your doctor if: You have vaginal discharge that smells bad. You feel sad, anxious, or hopeless for more than a few days. You have skin changes, such as a rash, itching, or a yellow color to your skin. You have other concerns about your . If you have labor signs at 37 weeks or more If you have signs of labor at 37 weeks or more, your doctor may tell you to call when your labor becomes more active. Symptoms of active labor include: Contractions that are regular. Contractions that are less than 5 minutes apart. Contractions that are hard to talk through. Follow-up care is a gomez part of your treatment and safety. Be sure to make and go to all appointments, and call your doctor if you are having problems. It's also a good idea to know your test resultsand keep a list of the medicines you take. Where can you learn more? Go to https://www.Excel[employer].net/patiented Enter N531 in the search box to learn more about Learning About When to Call Your Doctor During (After 20 Weeks). Current as of: December 28, 2022 Content Version: 13.8 ?? [id number] [employer]. Care instructions adapted under license by your healthcare professional. If you have questions about a medical condition or this instruction, always ask your healthcare professional. [employer] disclaims any warranty or liability for your use of this information. ATIONS CLERK * Attachments The following attachments cannot be sent through Care Everywhere. * : Kick Counts (Dutch) documented in this encounter Medications at Time of Discharge Medication Sig Dispensed Refills Start Date End Date fish oil-omega-3 fatty acids 1000 MG capsule Take 2 g by mouth daily 0 ondansetron (ZOFRAN ODT) 8 MG ODT tabIndications:Hyperem esis Take 1 tablet (8 mg) by mouth every 8 hours as needed for nausea 45 tablet 5 02/10/2023 Vit-Fe Fumarate-FA ( MULTIVITAMIN W/IRON) 27-0.8 MG tablet Take 1 tablet by mouth daily 0 acetone urine (KETOSTIX) test stripIndications:Gesta tional diabetes [...] every 14 days 6 each 3 06/03/2023 thin (NO BRAND SPECIFIED) lancetsIndications:Ges tational diabetes mellitus (GDM), antepartum, gestational diabetes method of control unspecified Use with lanceting device. To accompany: Blood Glucose Monitor Brands: per insurance. 100 each 11 06/03/2023 insulin glargine (LANTUS PEN) 100 UNIT/ML penIndications:Gestati onal diabetes mellitus (GDM), antepartum, gestational diabetes method of control unspecified Inject 16 Units Subcutaneous every morning -with pharmacist recommended needles. 9 mL 1 07/04/2023 07/15/2023 blood glucose monitoring (NO BRAND SPECIFIED) meter device kitIndications:Gestati onal diabetes mellitus (GDM), antepartum, gestational diabetes method of control unspecified Use to test blood sugar 1-2 times daily or as directed. Preferred blood glucose meter OR supplies to accompany: Blood Glucose Monitor Brands: per insurance. 1 kit 0 06/03/2023 07/15/2023 insulin lispro (HUMALOG KWIKPEN) 100 UNIT/ML (1 unit dial) KWIKPENIndications:Ges tational diabetes mellitus (GDM), antepartum, gestational diabetes method of control unspecified Inject 6 Units Subcutaneous daily (with breakfast) 15 mL 3 07/04/2023 07/15/2023 documented as of this encounter Miscellaneous Notes * Care Plan - Beverley Kennedy RN - 07/08/2023 5:08 PM CST Data: Patient assessed in the Birthplace for decreased movement. Cervical exam not examined. Membranes intact. Patient unaware of contractions. Action: Presumed adequate oxygenation documented (see flow record). Discharge instructions reviewed. Patient instructed to report change in movement, vaginal leaking of fluid or bleeding,abdominal pain, or any concerns related to the to her nurse/physician. Response: Orders to discharge home per Laureano Bennett. Patient verbalized understanding of education and verbalized agreement with plan. Discharged to home at 1705. ATIONS CLERK * Provider Notification - Beverley Kennedy RN - 07/08/2023 4:55 PM OPERATIONS CLERK 07/08/23 1655 Provider Notification Provider Name/Title Dr. Bennett Method of Notification Phone Request Evaluate - Remote Notification Reason Patient Arrived;Status Update Dr Laureano Bennett informed of patient arrival and assessment including the following: Reason for maternal/ assessment decreased movement. Pt is at 33 weeks with history of GDM and stillbirth. Pt reports she has felt minimal movement since this morning. status normal baseline, moderate variability, accelerations present and no decelerations. Patient unaware of contractions. After assessment patient reports she is feeling her baby move now. Plan per provider/orders received for discharge to home with plan to follow up as previously instructed. ATIONS CLERK * Care Plan - Beverley Kennedy RN - 07/08/2023 4:42 PM CST Data: Patient presented to Birthplace: 07/08/2023 4:10 PM. Reason for maternal/ assessment is decreased movement. Patient reports feeling minimal movement since this morning. Patient is a . record reviewed. has been complicated by gestational diabetes, insulin con trolled and history of stillbirth. Gestational Age 33w3d. VSS. movement decreased since this morning. Patient denies uterine contractions, leaking of vaginal fluid/rupture of membranes, vaginal bleeding, abdominal pain, vomiting, headache, visual disturbances, epigastric or URQ pain, significant edema. Support person is present. Action: Verbal consent for EFM. Triage assessment completed. Bill of rights reviewed. Response: Patient verbalized agreement with plan. Will contact Dr Laureano Bennett with update and for further orders. ATIONS CLERK documented in this encounter Plan of Treatment Upcoming Encounters Date Type Department Care Team (Late st Contact Info) Description 07/22/2023 8:45 AM OPERATIONS CLERK Appointment M [facility] Maternal Medicine [place] [address] [place] [address] [phone] Sheila Jones MD [address] [place], [place] [phone] 07/22/2023 9:15 AM OPERATIONS CLERK Office Visit [facility] Maternal Medicine [place] [address] [facility] [address] [place] [phone] Sheila Jones MD [address] [place] [address] [phone] 07/26/2023 8:00 AM OPERATIONS CLERK Appointment M [facility] Maternal Medicine [place] [address] [place] [address] [phone] Jennifer Boyer MD [address] [place] [address] [phone] Rayshawn Nunez MD [address] [place], [place] [phone] 07/26/2023 8:30 AM OPERATIONS CLERK Office Visit [facility] Maternal Medicine [place] [address] [facility] [address] [place] [address] [phone] Jennifer Boyer MD [address] [place], [place] [address] Rayshawn Nunez MD [address] [place], [place] [address] [phone] 07/29/2023 8:00 AM OPERATIONS CLERK Office Visit [address] [phone] Laureano Bennett MD [address] [place] [address] [phone] 07/29/2023 11:45 AM OPERATIONS CLERK Appointment [facility] Maternal Medicine [facility] [address] [phone] Jennifer Boyer MD [address] [place], [place] [address] 07/29/2023 12:15 PM OPERATIONS CLERK Office Visit [facility] Maternal Medicine [facility] [address] [phone] Jennifer Boyer MD [address] [place], [place] [phone] 08/05/2023 8:00 AM OPERATIONS CLERK Office Visit [address] [phone] Laureano Bennett MD [address] [place] [address] [phone] 08/23/2023 Hospital Encounter [facility] Birthplace [address] [place] [phone] Laureano Bennett MD [address] [place] [address] [phone] documented as of this encounter Procedures Procedure Name Priority Date/Time Associated Diagnosis Comments NON-STRESS TEST - HIM SCAN 07/08/2023 12:00 AM OPERATIONS CLERK documented in this encounter Results * NON-STRESS TEST - HIM SCAN (07/08/2023 12:00 AM OPERATIONS CLERK) 07/08/2023 Provider Outside PROCEDURES documented in this encounter Visit Diagnoses Diagnosis Encounter for triage in patient- Primary documented in this encounter Admitting Diagnoses Diagnosis Encounter for triage in patient documented in this encounter Additional Health Concerns Assessment Noted Time PHQ-9 Depression Total Score: 0 05/17/20 23 9:06 AM OPERATIONS CLERK documented as of this encounter Care Teams Overlock Collar Setter Relationship Specialty Start Date End Date Laureano Bennett MD [address] [place] [address] [phone] PCP - General Family Medicine 07/07/20 Laureano Bennett MD [address] [place] [address] [id number] Assigned PCP 08/14/[address] [place] [address] .Net Developer Dietitian, Registered 06/14/23 documented as of this encounter
--- OUTSIDE RECORDS SUMMARY | 2023-07-21 13:59 | XMS_ITS | Encounter Summary ---
Author Name Unknown Organization [place] Address [address] [facility] [place] [address] Care Team Providers Care Calibration Laboratory Technician Name Role Phone Laureano Bennett MD Primary Care Provider [phone] Laureano Bennett MD Unavailable [phone] Unavailable [phone] Reason for Visit * Reason Comments Ultrasound BPP-GDM on meds, hx IUFD Encounter Details Date Type Department Care Team ([facility] st Contact Info) Description 07/04/2023 4:00 PM FINAL DRESSING CUTTER Office Visit [facility] Maternal Medicine [place] [address] [facility] [address] [place] [phone] Rosemary Cheema MD [address] [facility] [address] [place] [address] Gestational diabetes mellitus (GDM) in third trimester controlled on oral hypoglycemic drug (Primary Dx) Social History Tobacco Use Types [...] this encounter Patient Instructions * Patient Instructions* Violette Zhou RN - 07/04/2023 4:00 PM FINAL DRESSING CUTTER Images from the original note were not included. Patient Education Counting Your Baby's Kicks: Care Instructions Overview [...] Where can you learn more? Go to https://www.[employer].net/patiented Enter U048 in the search box to learn more about Counting Your Baby's Kicks: Care Instructions. Current as of: December 28, 2022 Content Version: 13.8 ?? Foradian. Care instructions adapted under license by your healthcare professional. If you have questions about a medical condition or this instruction, always ask your healthcare professional. [employer] disclaims any warranty or liability for your use of this information. Patient Education Biophysical Profile and Non-Stress Test What are these tests for? You may need these tests if your baby is at risk for certain problems. The tests will check your baby's health. They are often done in the third trimester. You may have one or both tests every week until your baby is born. Some women have them twice a week. What is a biophysical profile? A biophysical profile is an ultrasound exam. The ultrasound will check your baby's: Breathing movements Body movements Muscle tone Amniotic fluid (the fluid around the baby). All of this will tell us how healthy your baby is. This test takes about 30 minutes. What is a non-stress test? This test uses a monitor to measure the baby's heart rate. You will lie back in a chair or on a bed. We will place two belts around your abdomen. The belts are attached to a monitor. This test will record: the baby's heart rate the baby's movements (the heart rate should increase when the baby moves) if your uterus is ismael (contractions, or tightenings, are common as you get closer to your due date). A non-stress test takes about 30 minutes. How do I get ready for these tests? Don't smoke for at least 2 hours before these tests. In fact, you should quit smoking if you are . When will I get my results? You will have your results before you leave the clinic. What if my baby doesn't pass these tests? Most tests come out well. If your results are not reassuring, your care team will talk to you aboutyour options. You may need to go to the hospital birthplace, where we can watch you more closely. For informational purposes only. Not to replace the advice of your health care provider. Copyright ?? 1999, 2004 [facility]. Clinically reviewed by Maternal- Medicine Department. All rights reserved. adsquare [id number] - REV 04/09. L DRESSING CUTTER documented in this encounter Progress Notes * Rosemary Cheema MD - 07/04/2023 4:00 PM CST Please see Imaging tab under Chart Review for details of today's visit. Rosemary Cheema L DRESSING CUTTER documented in this encounter Nursing Notes * Violette Zhou RN - 07/04/2023 4:00 PM CST Patient reports good movement, reports occasional contractions, denies leaking of fluid, or bleeding. Reports blood sugar values fasting 117 today and 2 hr post prandial <120. SBAR given to MARYAM MAYERS, see their note in Epic. L DRESSING CUTTER documented in this encounter Plan of Treatment Upcoming Encounters Date Type Department Care Team (Late st Contact Info) Description 07/22/2023 8:45 AM FINAL DRESSING CUTTER Appointment [facility] Maternal Medicine [place] [address] [facility] [address] [place] [phone] Sheila Jones MD [address] [facility] [address] [place] [address] 07/22/2023 9:15 AM FINAL DRESSING CUTTER Office Visit [facility] Maternal Medicine [place] [address] [place] [phone] Sheila Jones MD [address] [place] [address] 07/26/2023 8:00 AM FINAL DRESSING CUTTER Appointment [facility] Maternal Medicine [place] [address] [facility] [address] [place] [phone] Jennifer Boyer MD [address] [place], [place] [address] Rayshawn Nunez MD [address] [place] [address] 07/26/2023 8:30 AM FINAL DRESSING CUTTER Office Visit [facility] Maternal Medicine [place] [address] [facility] [address] [place] [phone] Jennifer Boyer MD [address] [place], [place] [address] Rayshawn Nunez MD [address] [place], [place] [address] 07/29/2023 8:00 AM FINAL DRESSING CUTTER Office Visit [address] [phone] Laureano Bennett MD [address] [place] [address] [phone] 07/29/2023 11:45 AM FINAL DRESSING CUTTER Appointment [facility] Maternal Medicine [place] [address] [facility] [address] [place] [phone] Jennifer Boyer MD [address] [place] [address] 07/29/2023 12:15 PM FINAL DRESSING CUTTER Office Visit [facility] M[facility] Medicine [place] [address] [facility] [address] [place] [phone] Jennifer Boyer MD [address] [place] [address] 08/05/2023 8:00 AM FINAL DRESSING CUTTER Office Visit [address] [phone] Laureano Bennett MD [address] [place] [address] [phone] 08/23/2023 Hospital Encounter [facility] Birthplace [address] [place] [phone] Laureano Bennett MD [address] [place] [address] [phone] documented as of this encounter Visit Diagnoses Diagnosis Gestational diabetes mellitus (GDM) in third trimester controlled on oral hypoglycemic drug- Primary documented in this encounter Additional Health Concerns Assessment Noted Time PHQ-9 Depression Total Score: 0 05/17/20 23 9:06 AM FINAL DRESSING CUTTER documented as of this encounter Care Teams Calibration Laboratory Technician Relationship Specialty Start Date End Date Laureano Bennett MD [address] [place] [address] [phone] PCP - General Family Medicine 07/07/20 Laureano Bennett MD [address] [place] [address] [phone] Assigned PCP 08/14/[address] [facility] [place] [address] [place] [address] Herb Counselor Dietitian, Registered 06/14/23 documented as of this encounter
--- OUTSIDE RECORDS SUMMARY | 2023-07-21 13:59 | XMS_ITS | Encounter Summary ---
Author Name Unknown Organization [place] Address [address] [place] [address] Care Team Providers Care Reacher Name Role Phone Laureano Bennett MD Primary Care Provider [phone] Laureano Bennett MD Unavailable [phone] Unavailable [phone] Encounter Details Date Type Department Care Team (Latest Contact Info) Description 07/01/2023 Travel Social History Tobacco Use Types Packs/Day Years Used Date Smoking Tobacco: Never Smokeless Tobacco: Never Alcohol Use Standard Drinks/Week Comments Not Currently 0 (1 standard drink = 0.6 oz pur e alcohol) PHQ-2 Answer Date Recorded PHQ-2 Score 0 05/17/2023 Adolescent Education Answer Date Record ed Getting [...] st Contact Info) Description 07/22/2023 8:45 AM FACTORY PROCESS WORKERS Appointment [facility] Maternal Medicine [place] [address] [address] [facility] [address] [place] [phone] Sheila Jones MD [address] [place], [place] [phone] 07/22/2023 9:15 AM FACTORY PROCESS WORKERS Office Visit [facility] Maternal Medicine [place] [address] [address] [facility] [address] [place] [phone] Sheila Jones MD [address] [place], [place] [phone] 07/26/2023 8:00 AM FACTORY PROCESS WORKERS Appointment [facility] Maternal Medicine [place] [address] [address] [facility] [address] [place] [phone] Jennifer Boyer MD [address] [place], [place] [address] Rayshawn Nunez MD [address] [place], [place] [address] 07/26/2023 8:30 AM FACTORY PROCESS WORKERS Office Visit [facility] Maternal Medicine [place] [address] [address] [facility] [address] [place] [phone] Jennifer Boyer MD [address] [place], [place] [address] Rayshawn Nunez MD [address] [place] [address] 07/29/2023 8:00 AM FACTORY PROCESS WORKERS Office Visit [address] [phone] Laureano Bennett MD [address] [place] [address] [phone] 07/29/2023 11:45 AM FACTORY PROCESS WORKERS Appointment [facility] Maternal Medicine [facility] [address] [facility] [address] [place] [phone] Jennifer Boyer MD [address] [place] [address] 07/29/2023 12:15 PM FACTORY PROCESS WORKERS Office Visit [facility] Maternal Medicine [facility] [address] [facility] [address] [place] [phone] Jennifer Boyer MD [address] [place] [address] 08/05/2023 8:00 AM FACTORY PROCESS WORKERS Office Visit [address] [phone] Laureano Bennett MD [address] [place] [address] [phone] 08/23/2023 Hospital Encounter [facility] [address] [place] [phone] Laureano Bennett MD [address] [place] [address] [phone] documented as of this encounter Visit Diagnoses Not on filedocumented in this encounter Additional Health Concerns Assessment Noted Time PHQ-9 Depression Total Score: 0 05/17/20 23 9:06 AM FACTORY PROCESS WORKERS documented as of this encounter Care Teams Reacher Relationship Specialty [place] [address] [place] [address] [phone] PCP - General Family Medicine 07/07/20 Laureano Bennett MD [address] [place] [address] [phone] Assigned PCP 08/14/[address] [place] [address] Admissions Evaluator Dietitian, Registered 06/14/23 documented as of this encounter
--- OUTSIDE RECORDS SUMMARY | 2023-07-21 13:59 | XMS_ITS | Encounter Summary ---
Author Name Unknown Organization [place] Address [address] [facility] [place] [address] Care Team Providers Care Chairman & Co Founder Name Role Phone Laureano Bennett MD Primary Care Provider [phone] Laureano Bennett MD Unavailable [phone] Unavailable [phone] Encounter Details Date Type Department Care Team (Latest Contact Info) Description 07/03/2023 Travel Social History Tobacco Use Types Packs/Day [...] st Contact Info) Description 07/22/2023 8:45 AM COORDINATING PRODUCER Appointment [facility]aternal [facility] [place] [address] [address] [facility] [address] [place] [phone] Sheila Jones MD [address] [place], [place] 89[address] 07/22/2023 9:15 AM COORDINATING PRODUCER Office Visit [facility] Maternal Medicine [place] [address] [address] [facility] [address] [place] [phone] Sheila Jones MD [address] [place], [place] [address] 07/26/2023 8:00 AM COORDINATING PRODUCER Appointment [facility] M[facility] [place] [address] [address] [facility] [address] [place] [phone] Jennifer Boyer MD [address] [place], [place] 3740[address] Rayshawn Nunez MD [address] [place], [place] [address] 07/26/2023 8:30 AM COORDINATING PRODUCER Office Visit [facility] Maternal Medicine [place] [address] [facility] [address] [place] [phone] Jennifer Boyer MD [address] [place], [place] 2[address] Rayshawn Nunez MD [address] [place] [address] 07/29/2023 8:00 AM COORDINATING PRODUCER Office Visit [address] [phone] Laureano Bennett MD [address] [place] [address] [phone] 07/29/2023 11:45 AM COORDINATING PRODUCER Appointment [facility] Maternal Medicine [facility] [address] [facility] [address] [place] [phone] Jennifer Boyer MD [address] [place] [address] 07/29/2023 12:15 PM COORDINATING PRODUCER Office Visit [facility] Maternal Medicine [facility] [address] [facility] [address] [place] [phone] Jennifer Boyer MD [address] [place] [address] 08/05/2023 8:00 AM COORDINATING PRODUCER Office Visit [address] [phone] Laureano Bennett MD [address] [place] [address] [phone] 08/23/2023 Hospital Encounter [facility] [address] [place] [phone] Laureano Bennett MD [address] [place] [address] [phone] documented as of this encounter Visit Diagnoses Not on filedocumented in this encounter Additional Health Concerns Assessment Noted Time PHQ-9 Depression Total Score: 0 05/17/20 23 9:06 AM COORDINATING PRODUCER documented as of this encounter Care Teams Chairman & Co Founder Relationship Specialty [place] [address] [place] [address] [id number] PCP - General Family Medicine 07/07/20 Laureano Bennett MD [address] [place] [address] [id number] Assigned PCP 08/14/[address] [place] [address] Groover And Striper Operator Dietitian, Registered 06/14/23 documented as of this encounter
--- OUTSIDE RECORDS SUMMARY | 2023-07-21 13:59 | XMS_ITS | Encounter Summary ---
Author Name Unknown Organization [facility] Address [address] [place] [address] Care Team Providers Care Member Service Representative Name Role Phone Renee Bennett MD Primary Care Provider [phone] Renee Bennett MD Unavailable [phone] Unavailable [phone] Reason for Referral * Diagnostic Imaging Ultrasound (Routine) - Pending Review Specialty Diagnoses / Procedures Referred By Tim nathan Referred To Contact Radiology. Diagnoses Gestational diabetes mellitus (GDM) in third trimester controlled on oral hypoglycemic drug History of IUFD Procedures Maternal BPP Single Jennifer Boyer MD [address] [address] Referral ID Status Reason Start Date Expiration Date V isits Requested Visits Authorized [id number] Pending Review 07/01/2023 06/30/2024 1 1 LOPMENTAL SPECIALIST Reason for Visit * Diagnostic Imaging Ultrasound (Routine) - Pending Review Specialty Diagnoses / Procedures Referred By Tim nathan Referred To Contact Radiology. Diagnoses Gestational diabetes mellitus (GDM) in third trimester controlled on oral hypoglycemic drug History of IUFD Procedures Maternal BPP Single Jennifer Boyer MD [address] [place] [address] Referral ID Status Reason Start Date Expiration Date V isits Requested Visits Authorized [id number] Pending Review 07/01/2023 06/30/2024 1 1 Encounter Details Date Type Department Care Team (Latest Contact Info) Description 07/04/2023 3:15 PM DEVELOPMENTAL SPECIALIST - 07/04/2023 11:59 PM DEVELOPMENTAL SPECIALIST Hospital Encounter [facility] [place] [address] [facility] [address] [place] [phone] Rosemary Cheema MD [address] [facility] [address] [place] [address] Gestational diabetes mellitus (GDM) in [...] 07/04/2023 07/15/2023 documented as of this encounter Plan of Treatment Upcoming Encounters Date Type Department Care Team (Late st Contact Info) Description 07/22/2023 8:45 AM DEVELOPMENTAL SPECIALIST Appointment [facility] [place] [address] [address] [facility] [address] [place] [phone] Sheila Jones MD [address] [place] [address] [phone] 07/22/2023 9:15 AM DEVELOPMENTAL SPECIALIST Office Visit [facility] [place] [address] [address] [facility] [address] [place] [phone] Sheila Jones MD [address] [place], [place] [address] 07/26/2023 8:00 AM DEVELOPMENTAL SPECIALIST Appointment [facility] [address] [facility] [address] [place] [address] [phone] Jennifer Boyer MD [address] [place], [place] 9[address] Rayshawn Nunez MD [address] [place] [address] 07/26/2023 8:30 AM DEVELOPMENTAL SPECIALIST Office Visit [facility] [place] [address] [address] [facility] [address] [place] [phone] Jennifer Boyer MD [address] [place] [address] Rayshawn Nunez MD [address] [place] [address] 07/29/2023 8:00 AM DEVELOPMENTAL SPECIALIST Office Visit [address] [phone] Renee Bennett MD [address] [place] [address] [phone] 07/29/2023 11:45 AM DEVELOPMENTAL SPECIALIST Appointment [facility] [place] [address] [address] [facility] [address] [place] [phone] Jennifer Boyer MD [address] [place] [address] 07/29/2023 12:15 PM DEVELOPMENTAL SPECIALIST Office Visit [facility] [place] [address] [address] [facility] [address] [place] [phone] Jennifer Boyer MD [address] [place] [address] 08/05/2023 8:00 AM DEVELOPMENTAL SPECIALIST Office Visit [address] [phone] Renee Bennett MD [address] [place] [address] [phone] 08/23/2023 Hospital Encounter [facility] [address] [place] [phone] Renee Bennett MD [address] [place], [place] [phone] documented as of this encounter Procedures Procedure Name Priority Date/Time Associated Diagnosis Comments MFM BPP SINGLE Routine 07/04/2023 3:38 PM DEVELOPMENTAL SPECIALIST Gestational diabetes mellitus (GDM) in third trimester controlled on oral hypoglycemic drug Prior with demise and current in third trimester documented in this encounter Results * Maternal BPP Single (07/04/2023 3:38 PM DEVELOPMENTAL SPECIALIST) Anatomical Region Laterality Modality Ultrasound 07/04/2023 3:18 PM DEVELOPMENTAL SPECIALIST Impressions 07/04/2023 5:32 PM DEVELOPMENTAL SPECIALIST IMPRESSION ----- 1) Brumfield intrauterine at 32w 6d gestational age. 2) The BPP is reassuring. 3) The amniotic fluid volume appeared normal. Narrative 07/04/2023 5:32 PM DEVELOPMENTAL SPECIALIST ?BPP ----- Pat. Name: TUPY, YU ? Study Date: ??07/04/2023 3:18pm Pat. NO: ??[id number] ?Referring ??MD: RENEE BENNETT Site: ??[facility] ? Rn Radiation Oncology: Renetta Garcia [facility] : ??1995 ?Age: ?? 27 ----- INDICATION ----- Gestational Diabetes (GDM) - on Metformin (switching to Insulin), History of term IUFD METHOD ----- Transabdominal ultrasound examination. View: Sufficient ----- [place] . Number of fetuses: 1 DATING ----- ? Date ?Details ?Gest. age ?[place] LMP ?11/16/2022 ?Cycle: regular cycle ?32 w + 6 d ? 08/23/2023 Prior assessment ? 01/05/2023 ? GA: 7 w + 1 d ?32 w + 6 d ? 08/23/2023 Assigned dating ?Dating performed on 07/01/2023, based on the LMP ?32 w + 6 d ? 08/23/2023 GENERAL EVALUATION ----- Cardiac activity present. FHR 126 bpm. movements visualized. Presentation maribell breech. Placenta Anterior. Umbilical cord previously studied. AMNIOTIC FLUID ASSESSMENT ----- Amount of AF: normal MVP 5.0 cm BIOPHYSICAL PROFILE ----- 2: breathing movements [...] detected Procedure Note Rosemary Cheema MD - 07/04/2023 BPP ----- Pat. Name: YU RENEE Study Date: 07/04/2023 3:18pm Pat. NO: [id number] Referring MD: RENEE BENNETT Site: [facility] Rn Radiation Oncology: Renetta Garcia RDMS : 1995 Age: 27 ----- INDICATION ----- Gestational Diabetes (GDM) - on Metformin (switching to Insulin), Historyof term IUFD METHOD ----- Transabdominal ultrasound examination. View: Sufficient ----- [place] . Number of fetuses: 1 DATING ----- DateDetailsGest. age [place] LMP 11/16/2022ycle: regular cycle32 w + 6 d 08/23/2023 Prior assessment 01/05/2023 GA: 7 w +1 d32 w + 6 d 08/23/2023 Assigned dating Dating performed on 07/01/2023, based onthe LMP 32 w +6 d 08/23/2023 GENERAL EVALUATION ----- Cardiac activity present. FHR 126 bpm. movements visualized. Presentation maribell breech. Placenta Anterior. Umbilical cord previously studied. AMNIOTIC FLUID ASSESSMENT ----- Amount of AF: normal MVP 5.0 cm BIOPHYSICAL PROFILE ----- 2: breathing movements [...] detected IMPRESSION ----- 1) [place]field intrauterine at 32w 6d gestational age. 2) The BPP is reassuring. 3) The amniotic fluid volume appeared normal. Jennifer [facility] ORDERAB LES documented in this encounter Visit Diagnoses Diagnosis Gestational diabetes mellitus (GDM) in third trimester controlled on oral hypoglycemic drug Prior with demise and current in third trimester documented in this encounter Additional Health Concerns Assessment Noted Time PHQ-9 Depression Total Score: 0 05/17/20 23 9:06 AM DEVELOPMENTAL SPECIALIST documented as of this encounter Care Teams Member Service Representative Relationship Specialty [place] [address] [place] [phone] PCP - General Family Medicine 07/07/20 Renee Bennett MD [address] [place] [address] [id number] Assigned PCP 08/14/[address] [place] [address] [place] [address] Board Writer Dietitian, Registered 06/14/23 documented as of this encounter
--- OUTSIDE RECORDS SUMMARY | 2023-07-21 13:59 | XMS_ITS | Encounter Summary ---
Author Name Unknown Organization [facility] Address [address] [place] [address] Care Team Providers Care [employer] Teacher Name Role Phone Renee Bennett MD Primary Care Provider [phone] Renee Bennett MD Unavailable [phone] Unavailable [phone] Reason for Referral * Diagnostic Imaging Ultrasound (Routine) - Pending Review Specialty Diagnoses / Procedures Referred By Tim nathan Referred To Contact Radiology. Diagnoses Gestational diabetes mellitus (GDM) in third trimester controlled on oral hypoglycemic drug History of IUFD Procedures Maternal BPP Single Jennifer Boyer MD [address] [address] Referral ID Status Reason Start Date Expiration Date V isits Requested Visits Authorized [id number] Pending Review 07/01/2023 06/30/2024 1 1 RNAL GRINDER SET UP OPERATOR Reason for Visit * Diagnostic Imaging Ultrasound (Routine) - Pending Review Specialty Diagnoses / Procedures Referred By Tim nathan Referred To Contact Radiology. Diagnoses Gestational diabetes mellitus (GDM) in third trimester controlled on oral hypoglycemic drug History of IUFD Procedures Maternal BPP Single Jennifer Boyer MD [address] [place] [address] Referral ID Status Reason Start Date Expiration Date V isits Requested Visits Authorized [id number] Pending Review 07/01/2023 06/30/2024 1 1 Encounter Details Date Type Department Care Team (Latest Contact Info) Description 07/06/2023 3:30 PM INTERNAL GRINDER SET UP OPERATOR - 07/06/2023 11:59 PM INTERNAL GRINDER SET UP OPERATOR Hospital Encounter [facility] [place] [address] [facility] [address] [place] [phone] Tyshawn Mccurdy MD [address] [facility] [address] [place] [address] Gestational diabetes mellitus (GDM) in [...] st Contact Info) Description 07/22/2023 8:45 AM INTERNAL GRINDER SET UP OPERATOR Appointment [facility] Maternal Medicine [place] [address] [address] [facility] [address] [place] [phone] Sheila Jones MD [address] [place] [address] [phone] 07/22/2023 9:15 AM INTERNAL GRINDER SET UP OPERATOR Office Visit [facility] Maternal Medicine [place] [address] [address] [facility] [address] [place] [address] [phone] Sheila Jones MD [address] [place], [place] 9[address] 07/26/2023 8:00 AM INTERNAL GRINDER SET UP OPERATOR Appointment [facility] Maternal Medicine [facility] [address] [facility] [address] [place] [address] [phone] Jennifer Boyer MD [address] [place], [place] 17[address] Rayshawn Nunez MD [address] [place] [address] 07/26/2023 8:30 AM INTERNAL GRINDER SET UP OPERATOR Office Visit [facility] Medicine [facility] [place] [address] [address] [facility] [address] [place] [phone] Jennifer Boyer MD [address] [place] [address] Rayshawn Nunez MD [address] [place] [address] 07/29/2023 8:00 AM INTERNAL GRINDER SET UP OPERATOR Office Visit [address] [phone] Renee Bennett MD [address] [place] [address] [phone] 07/29/2023 11:45 AM INTERNAL GRINDER SET UP OPERATOR Appointment [facility] Maternal Medicine [place] [address] [address] [facility] [address] [place] [phone] Jennifer Boyer MD [address] [place] [address] 07/29/2023 12:15 PM INTERNAL GRINDER SET UP OPERATOR Office Visit [facility] Maternal Medicine [place] [address] [address] [facility] [address] [place] [phone] Jennifer Boyer MD [address] [place] [address] 08/05/2023 8:00 AM INTERNAL GRINDER SET UP OPERATOR Office Visit [address] [phone] Renee Bennett MD [address] [place] [address] [phone] 08/23/2023 Hospital Encounter [facility] [address] [place] [phone] Renee Bennett MD [address] [place], [place] [phone] documented as of this encounter Procedures Procedure Name Priority Date/Time Associated Diagnosis Comments MFM BPP SINGLE Routine 07/06/2023 3:49 PM INTERNAL GRINDER SET UP OPERATOR Gestational diabetes mellitus (GDM) in third trimester controlled on oral hypoglycemic drug Prior with demise and current in third trimester documented in this encounter Results * Maternal BPP Single (07/06/2023 3:49 PM INTERNAL GRINDER SET UP OPERATOR) Anatomical Region Laterality Modality Ultrasound 07/06/2023 3:32 PM INTERNAL GRINDER SET UP OPERATOR Impressions 07/06/2023 3:53 PM INTERNAL GRINDER SET UP OPERATOR IMPRESSION ----- 1) Normal amniotic fluid volume. 2) BPP is reassuring. Narrative 07/06/2023 3:53 PM INTERNAL GRINDER SET UP OPERATOR ?BPP ----- Pat. Name: YU RENEE ? Study Date: ??07/06/2023 3:32pm Pat. NO: ??[id number] ?Referring ??MD: RENEE BENNETT Site: ??[facility] ? Aviation Technician Aircraft: Renetta Garcia RDMS : ??1995 ?Age: ?? 27 ----- INDICATION ----- Gestational Diabetes (GDM) - on Metformin (switching to Insulin), History of term IUFD METHOD ----- Transabdominal ultrasound examination. View: Sufficient ----- [place] . Number of fetuses: 1 DATING ----- ? Date ?Details ?Gest. age ?[place] LMP ?11/16/2022 ?Cycle: regular cycle ?33 w + 1 d ? 08/23/2023 Prior assessment ? 01/05/2023 ? GA: 7 w + 1 d ?33 w + 1 d ? 08/23/2023 Assigned dating ?Dating performed on 07/01/2023, based on the LMP ?33 w + 1 d ? 08/23/2023 GENERAL EVALUATION ----- Cardiac activity present. FHR 133 bpm. movements visualized. Presentation cephalic. Placenta Anterior. Umbilical cord previously studied. AMNIOTIC FLUID ASSESSMENT ----- Amount of AF: normal MVP 3.6 cm BIOPHYSICAL PROFILE ----- 2: breathing movements 2: Gross body movements 2: tone 2: Amniotic fluid volume 8/8 Biophysical profile score Interpretation: normal RECOMMENDATION ----- We discussed the findings on today's ultrasound with the patient. The patient is scheduled to continue twice weekly testing with BPPs. Return to primary provider for continued care. Thank-you for the opportunity to participate in the care of this patient. If you have questions regarding today's evaluation or if we can be of further service, please contact the Maternal- Medicine Center. anomalies may be present but not detected Procedure Note Tyshawn Mccurdy MD - 07/06/2023 BPP ----- Pat. Name: YU RENEE Study Date: 07/06/2023 3:32pm Pat. NO: [id number] Referring MD: RENEE BENNETT Site: [facility] Aviation Technician Aircraft: Renetta Garcia RDMS : 1995 Age: 27 ----- INDICATION ----- Gestational Diabetes (GDM) - on Metformin (switching to Insulin), Historyof term IUFD METHOD ----- Transabdominal ultrasound examination. View: Sufficient ----- [place] . Number of fetuses: 1 DATING ----- DateDetailsGest. age [place] LMP 11/16/2022ycle: regular cycle33 w + 1 d 08/23/2023 Prior assessment 01/05/2023 GA: 7 w +1 d33 w + 1 d 08/23/2023 Assigned dating Dating performed on 07/01/2023, based onthe LMP 33 w +1 d 08/23/2023 GENERAL EVALUATION ----- Cardiac activity present. FHR 133 bpm. movements visualized. Presentation cephalic. Placenta Anterior. Umbilical cord previously studied. AMNIOTIC FLUID ASSESSMENT ----- Amount of AF: normal MVP 3.6 cm BIOPHYSICAL PROFILE ----- 2: breathing movements 2: Gross body movements 2: tone 2: Amniotic fluid volume 01/25 Biophysical profile score Interpretation: normal RECOMMENDATION ----- We discussed the findings on today's ultrasound with the patient. The patient is scheduled to continue twice weekly testing withBPPs. Return to primary provider for continued care. Thank-you for the opportunity to participate in the care of this patient.If you have questions regarding today's evaluation or if we can be offurther service, please contact the Maternal- Medicine Center. anomalies may be present but not detected IMPRESSION ----- 1) Normal amniotic fluid volume. 2) BPP is reassuring. Jennifer [facility] documented in this encounter Visit Diagnoses Diagnosis Gestational diabetes mellitus (GDM) in third trimester controlled on oral hypoglycemic drug Prior with demise and current in third trimester documented in this encounter Additional Health Concerns Assessment Noted Time PHQ-9 Depression Total Score: 0 11/28/20 23 9:06 AM INTERNAL GRINDER SET UP OPERATOR documented as of this encounter Care Teams [employer] Teacher Relationship Specialty Start Date End Date Renee Bennett MD [address] [place], [place] [phone] PCP - General Family Medicine 07/07/20 [place] [address] [place] [address] [id number] Assigned PCP 08/14/[address] [place] [address] [place] [address] Account Development Executive Dietitian, Registered 06/14/23 documented as of this encounter
--- OUTSIDE RECORDS SUMMARY | 2023-07-21 13:59 | XMS_ITS | Encounter Summary ---
Author Name Unknown Organization [facility] Address [address] [facility] [place] [address] Care Team Providers Care Meat Dresser Name Role Phone Laureano Bennett MD Primary Care Provider [phone] Laureano Bennett MD Unavailable [phone] Unavailable [phone] Encounter Details Date Type Department Care Team (Latest Contact Info) Description 07/04/2023 Travel Social History Tobacco Use Types Packs/Day [...] st Contact Info) Description 07/22/2023 8:45 AM GENERATOR SWITCHBOARD OPERATOR Appointment [facility] Maternal Medicine [place] [address] [facility] [address] [place] [phone] Sheila Jones MD [address] [place], [place] [address] 07/22/2023 9:15 AM GENERATOR SWITCHBOARD OPERATOR Office Visit [facility] Maternal Medicine [place] [address] [facility] [address] [place] [phone] Sheila Jones MD [address] [place], [place] [address]704 07/26/2023 8:00 AM GENERATOR SWITCHBOARD OPERATOR Appointment [facility] Maternal Medicine [place] [address] [facility] [address] [place] [phone] Jennifer Boyer MD [address] [place], [place] 9[address] Rayshawn Nunez MD [address] [place], [place] [address] 07/26/2023 8:30 AM GENERATOR SWITCHBOARD OPERATOR Office Visit [facility] Maternal Medicine [place] [address] [facility] [address] [place] [phone] Jennifer Boyer MD [address] [place], [place] [address] Rayshawn Nunez MD [address] [place] [address] 07/29/2023 8:00 AM GENERATOR SWITCHBOARD OPERATOR Office Visit [address] [phone] Laureano Bennett MD [address] [place] [address] [id number] 07/29/2023 11:45 AM GENERATOR SWITCHBOARD OPERATOR Appointment [facility] Maternal Medicine [facility] [address] [facility] [address] [place] [phone] Jennifer Boyer MD [address] [place] [address] 07/29/2023 12:15 PM GENERATOR SWITCHBOARD OPERATOR Office Visit [facility] Maternal Medicine [facility] [address] [facility] [address] [place] [phone] Jennifer Boyer MD [address] [place] [address] 08/05/2023 8:00 AM GENERATOR SWITCHBOARD OPERATOR Office Visit [address] [phone] Laureano Bennett MD [address] [place] [address] [phone] 08/23/2023 Hospital Encounter [facility] [address] [place] [phone] Laureano Bennett MD [address] [place] [address] [phone] documented as of this encounter Visit Diagnoses Not on filedocumented in this encounter Additional Health Concerns Assessment Noted Time PHQ-9 Depression Total Score: 0 05/17/20 23 9:06 AM GENERATOR SWITCHBOARD OPERATOR documented as of this encounter Care Teams Meat Dresser Relationship Specialty [place] [address] [place] [address] [phone] PCP - General Family Medicine 07/07/20 Laureano Bennett MD [address] [place] [address] [id number] Assigned PCP 08/14/[address] [place] [place] [address] Welding Machine Operator Gas Metal Arc Dietitian, Registered 06/14/23 documented as of this encounter
--- NOTE | 2023-07-21 14:00 | CRLHL7_ITS ---
For Patients: As a result of the Century Cures Act, medical imaging exams and procedure reports are released immediately into your electronic medical record. You may view this report before your referring provider. If you have questions, please contact your health care provider. INDICATION: GDM TECHNIQUE: Real time vang scale imaging of the fetus was performed. COMPARISON: None FINDINGS: Sonographic imaging demonstrates a single living intrauterine gestation. Fetus demonstrates a regular cardiac rate of 150 beats per minute. Fetus has a vertex position. The placenta lies anteriorly. Amniotic fluid volume appears normal and there is a single deepest pocket of 5.3 cm. The estimated weight is 2503gm which lies at the 32nd%. BPD 18th percentile. HC 10th percentile. AC 44th percentile. FL 33rd percentile. The fetus was active and demonstrated normal breathing movements. There was normal flexion and extension of the trunk and extremities. IMPRESSION: Normal biophysical profile score 8/8. Sonographic gestational age 34 weeks 4 days and sonographic due date 08/28/2023. Sonographic age 5 days behind the clinical age. Estimated weight 32nd percentile. Abdominal circumference 44th percentile. Dictated by Andrew Wilkes MD @ 07/21/2023 3:09:27 PM (Electronically Signed)
--- OUTSIDE RECORDS SUMMARY | 2023-07-21 14:00 | XMS_ITS | Encounter Summary ---
Author Name Unknown Organization [place] Address [address] [place] [address]. [place] [address] Care Team Providers Care Cloth Baler Name Role Phone Laureano Bennett MD Primary Care Provider [phone] Laureano Bennett MD Unavailable [phone] Encounter Details Date Type Department Care Team (Latest Contact Info) Description 05/31/2023 Travel Social History Tobacco Use Types Packs/Day [...] you got money to buy more? No 05/17/2023 Within the past 12 months, d id the food you bought just not last and you didn? t have money to get more? No 05/17/2023 Housing Stability Answer Date Recorded Do you have housing? Yes 05/17/2023 Are you worried about losing your housing? No 05/17/2023 Financial Resource Strain Answer Date R ecorded Within the past 12 months, h ave you or your family members you live with been unable to get utilities (heat, electricity) when it was really needed? No 05/17/2023 Transportation Needs Answer Date Record ed Within the past 12 months, h as lack of transportation kept you from medical appointments, getting your medicines, non-medical meetings or appointments, work, or from getting things that you need? No 05/17/2023 Estimated Date of Delivery Comme nts Yes [...] st Contact Info) Description 07/22/2023 8:45 AM CREMATOR Appointment [facility] Maternal Medicine [place] [address] [facility] [address] [place] [address] [phone] Sheila Jones MD [address] [place], [place] [address] 07/22/2023 9:15 AM CREMATOR Office Visit [facility] Maternal Medicine [place] [address] [facility] [address] [place] [address] [phone] Sheila Jones MD [address] [place], [place] [address] 07/26/2023 8:00 AM CREMATOR Appointment [facility] Maternal Medicine [place] [address] [facility] [address] [place] [address] [phone] Jennifer Boyer MD [address] [place], [place] 5938[address] Rayshawn Nunez MD [address] [place], [place] [address] 07/26/2023 8:30 AM CREMATOR Office Visit [facility] Maternal Medicine [place] [address] [facility] [address] [place] [address] [phone] Jennifer Boyer MD [address] [place], [place] [address] Rayshawn Nunez MD [address] [place] [address] 07/29/2023 8:00 AM CREMATOR Office Visit [address] [phone] Laureano Bennett MD [address] [place] [address] [phone] 07/29/2023 11:45 AM CREMATOR Appointment [facility] Maternal Medicine [facility] [address] [facility] [address] [place] [phone] Jennifer Boyer MD [address] [place] [address] 07/29/2023 12:15 PM CREMATOR Office Visit [facility] Maternal Medicine [facility] [address] [facility] [address] [place] [address] [phone] Jennifer Boyer MD [address] [place] [address] 08/05/2023 8:00 AM CREMATOR Office Visit [address] [phone] Laureano Bennett MD [address] [place] [address] 08/23/2023 Hospital Encounter [facility] [address] [place] [phone] Laureano Bennett MD [address] [place] [address] [phone] documented as of this encounter Visit Diagnoses Not on filedocumented in this encounter Additional Health Concerns Assessment Noted Time PHQ-9 Depression Total Score: 0 05/17/20 23 9:06 AM CREMATOR documented as of this encounter Care Teams Cloth Baler Relationship Specialty [place] [address] [place] [address] PCP - General Family Medicine 07/07/20 [place] [address] [place] [address] 16902 Assigned PCP 08/14/22 documented as of this encounter
--- OUTSIDE RECORDS SUMMARY | 2023-07-21 14:00 | XMS_ITS | Encounter Summary ---
Author Name Unknown Organization [place] Address [address] [place] [address] Care Team Providers Care School Community Relations Coordinator Name Role Phone Laureano Bennett MD Primary Care Provider [phone] Laureano Bennett MD Unavailable [phone] Unavailable [phone] Reason for Referral * Consultation (Routine: Next available opening) - Referral NOT Required Specialty Diagnoses / Procedures Referred By Contac t Referred To Contact Diagnoses Gestational diabetes mellitus (GDM), antepartum, gestational diabetes method of control unspecified Laureano Bennett MD [address] [place] [address] Maternal Med [address] [facility] [address] [place] [address] Referral ID Status Reason Start Date Expiration Date V isits Requested Visits Authorized [id number] Referral NOT Required 06/21/2023 06/20/2024 1 1 Question Answer Preferred Location: [facility] [place] 08/23/2023 Ultrasound MFM Recommendation US PROC NONE MFM Issue OTHER (enter details in Comments) - Gestational diabetes MARYAM MAYERS Consultation (unrelated to Ultrasound findings): No Inflammatory Bowel Disease Clinic: Joint MFM and GI Consultation: No Chronic Kidney Disease: Joint MFM and Nephrology Consultation No Genetic Counseling Consultation: No fax on [facility] Comments Body mass index is 26.82 kg/m??. >> Patient may proceed with recommendations for further testing as directed by the Maternal Medicine Specialist >> >> If requesting Echo: MFM will determine appropriate location for exam due to indication. >> If requesting Lung Maturity Amnio: If results indicate lung maturity, induction or C/S is recommended within 36 hours. Please schedule accordingly. Please be aware that coverage of these services is subject to the terms and limitations of your health insurance plan. Call member services at your health plan with any benefit or coverage questions. ICAL THERAPY TECHNICIAN Encounter Details Date Type Department Care Team (Late st Contact Info) Description 06/21/2023 10:20 AM PHYSICAL THERAPY TECHNICIAN Office Visit [address] [phone] Laureano Bennett MD [address] [place] [address] [phone] Gestational diabetes mellitus (GDM), antepartum, gestational diabetes method of control unspecified (Primary Dx) Social History Tobacco Use Types [...] Sign Reading Time Taken Comments Blood Pressure 122/78 06/21/2023 10:14 AM PHYSICAL THERAPY TECHNICIAN Pulse 76 06/21/2023 10:14 AM PHYSICAL THERAPY TECHNICIAN Temperature 36.6 ??C (97.9 ??F) 06/21/2023 10:[address] Respiratory Rate 14 06/21/2023 10:14 AM PHYSICAL THERAPY TECHNICIAN Oxygen Saturation 98% 06/21/2023 10:14 AM PHYSICAL THERAPY TECHNICIAN Inhaled Oxygen Concentration - - Weight 81.2 kg (179 lb) 06/21/2023 10:14 AM PHYSICAL THERAPY TECHNICIAN Height 174 cm (5' 8.5) 06/21/2023 10:14 AM PHYSICAL THERAPY TECHNICIAN Body Mass Index 26.82 06/21/2023 10:14 AM PHYSICAL THERAPY TECHNICIAN documented in this encounter Progress Notes * Laureano Bennett MD - 06/21/2023 10:20 AM CST S:Yu Renee is here today for a Visit at 31w0d gestation. Concerns today: GDM - fasting glucose 80s to 110s, she has met with DM educator and also following [employer] for Gestational Diabetes: An Effective Alternative to the Conventional Nutrition Approach- Eloise Green . She would like monitoring near term with her previous late miscarriage Bleeding: No Cramping/Contractions:Yes normal Leaking of fluid: No Baby moving: Yes O: See OB Vitals ASSESSMENT:/PLAN: Return in 2 weeks GDM - glucose pretty good control - will add metformin (discussed insulin) start Maternal Medicine visits for monitoring twice weekly starting now and weight scan ~ 36 weeks. ICAL THERAPY TECHNICIAN documented in this encounter Plan of Treatment Upcoming Encounters Date Type Department Care Team (Late st Contact Info) Description 07/22/2023 8:45 AM PHYSICAL THERAPY TECHNICIAN Appointment [facility] M[facility] Medicine [facility] [place] [address] [facility] [address] [place] [address] Sheila Jones MD [address] [place] [address] 07/22/2023 9:15 AM PHYSICAL THERAPY TECHNICIAN Office Visit [facility] Maternal Medicine [place] [address] [facility] [address] [place] [address] Sheila Jones MD [address] [place] [address] 07/26/2023 8:00 AM PHYSICAL THERAPY TECHNICIAN [facility]ointment [facility] Medicine [place] [address] [facility] [address] [place] [phone] Jennifer Boyer MD [address] [place], [place] [address] [phone] Rayshawn Nunez MD [address] [place] [address] 07/26/2023 8:30 AM PHYSICAL THERAPY TECHNICIAN Office Visit [facility] Medicine [place] [address] [facility] [address] [place] [address] Jennifer Boyer MD [address] [place] [address] Rayshawn Nunez MD [address] [place], [place] [address] 07/29/2023 8:00 AM PHYSICAL THERAPY TECHNICIAN Office Visit [address] [phone] Laureano Bennett MD [address] [place] [address] 349412 07/29/2023 11:45 AM PHYSICAL THERAPY TECHNICIAN Appointment [facility] M[facility] Medicine [facility] [place] [address] [facility] [address] [place] [address] Jennifer Boyer MD [address] [place] [address] 07/29/2023 12:15 PM PHYSICAL THERAPY TECHNICIAN Office Visit [facility] Maternal Medicine [facility] [address] [facility] [address] [place] [address] Jennifer Boyer MD [address] [place] [address] 08/05/2023 8:00 AM PHYSICAL THERAPY TECHNICIAN Office Visit [address] [place] [address] Laureano Bennett MD [address] [place] [address] 08/23/2023 Hospital Encounter [facility] [address] [place] [address] Laureano Bennett MD [address] [place] [address] [phone] Scheduled Referrals Name Type Priority Associated Diagnoses Orde r Schedule Mat Med Ctr Referral - Referral Routine: Next available opening Gestational diabetes mellitus (GDM), antepartum, gestational diabetes method of control unspecified Expected: 06/21/2023 (Approximate), Expires: 12/18/2023 documented as of this encounter Visit Diagnoses Diagnosis Gestational diabetes mellitus (GDM), antepartum, gestational diabetes method of control unspecified- Primary documented in this encounter Additional Health Concerns Assessment Noted Time PHQ-9 Depression Total Score: 0 05/17/20 23 9:06 AM PHYSICAL THERAPY TECHNICIAN documented as of this encounter Care Teams School Community Relations Coordinator Relationship Specialty Start Date End Date Laureano Bennett MD [address] [place] [address] PCP - General Family Medicine 07/07/20 Laureano Bennett MD [address] [place] [address] Assigned PCP 08/14/[address] [facility] [place] [address] [place] [address] Inspector Aide Dietitian, Registered 06/14/23 documented as of this encounter
--- OUTSIDE RECORDS SUMMARY | 2023-07-21 14:00 | XMS_ITS | Encounter Summary ---
Author Name Unknown Organization [facility] Address [address] [place] [address]. [place] [address] Care Team Providers Care Parish Nurse Name Role Phone Laureano Bennett MD Primary Care Provider [phone] Laureano Bennett MD Unavailable [phone] Encounter Details Date Type Department Care Team (Latest Contact Info) Description 06/03/2023 Travel Social History Tobacco Use Types Packs/Day [...] st Contact Info) Description 07/22/2023 8:45 AM LEGAL MEDIATOR Appointment [facility] Maternal Medicine [place] [address] [facility] [address] [place] [phone] Sheila Jones MD [address] [place], [place] [address] 07/22/2023 9:15 AM LEGAL MEDIATOR Office Visit [facility] Maternal Medicine [place] [address] [facility] [address] [place] [phone] Sheila Jones MD [address] [place], [place] [address] 07/26/2023 8:00 AM LEGAL MEDIATOR Appointment [facility] Maternal Medicine [place] [address] [facility] [address] [place] [phone] Jennifer Boyer MD [address] [place], [place] [address] Rayshawn Nunez MD [address] [place], [place] [address] 07/26/2023 8:30 AM LEGAL MEDIATOR Office Visit [facility] Maternal Medicine [place] [address] [facility] [address] [place] [phone] Jennifer Boyer MD [address] [place], [place] [address] Rayshawn Nunez MD [address] [place] [address] 07/29/2023 8:00 AM LEGAL MEDIATOR Office Visit [address] [phone] Laureano Bennett MD [address] [place] [address]602 07/29/2023 11:45 AM LEGAL MEDIATOR Appointment [facility] Maternal Medicine [facility] [address] [facility] [address] [place] [phone] Jennifer Boyer MD [address] [place] [address] 07/29/2023 12:15 PM LEGAL MEDIATOR Office Visit [facility] Maternal Medicine [facility] [address] [facility] [address] [place] [address] [phone] Jennifer Boyer MD [address] [place] [address] 08/05/2023 8:00 AM LEGAL MEDIATOR Office Visit [address] [phone] Laureano Bennett MD [address] [place] [address] 08/23/2023 Hospital Encounter [facility] [address] [place] [phone] Laureano Bennett MD [address] [place] [address] [phone] documented as of this encounter Visit Diagnoses Not on filedocumented in this encounter Additional Health Concerns Assessment Noted Time PHQ-9 Depression Total Score: 0 05/17/20 23 9:06 AM LEGAL MEDIATOR documented as of this encounter Care Teams Parish Nurse Relationship Specialty [place] [address] [place] [address] PCP - General Family Medicine 07/07/20 [place] [address] [place] [address] 20[address] Assigned PCP 08/14/22 documented as of this encounter
--- OUTSIDE RECORDS SUMMARY | 2023-07-21 14:00 | XMS_ITS | Encounter Summary ---
Author Name Unknown Organization [facility] Address [address] [place] [address]. [place] [address] Care Team Providers Care Corrosion Control Specialist Name Role Phone Laureano Bennett MD Primary Care Provider [phone] Laureano Bennett MD Unavailable [phone] Unavailable [phone] Reason for Visit * Reason Comments Diabetes Education Gestational Diabetes Encounter Details Date Type Department Care Team (Late st Contact Info) Description 06/14/2023 10:45 AM DEPUTY GENERAL COUNSEL Virtual Visit [address] [phone] Eugenie Zee, ALEX [address] [address] Gestational diabetes mellitus (GDM), antepartum, gestational diabetes [...] this encounter Patient Instructions * Patient Instructions* Eugenie Zee RD - 06/14/2023 10:45 AM DEPUTY GENERAL COUNSEL It was good to meet you today. Here is the after visit summary and some bedtime snack ideas. 1. Check blood sugar 4 times a day, before breakfast and 1 hour after the start of each meal. 2. Check urine ketones when you wake up every morning for 7 days. If negative everyday, reduce testing to once a week. Fasting/before breakfast goal: 95 or less 1 hour after meals: 140 or less If you can't test at 1 hour do 2 hours after the meal: goal 120 or less 3. Follow the recommended meal plan: eat something every 2-3 hours, include protein/fat and carbohydrate at every meal and snack, have 30g carbs at breakfast, 45-60g carbs at lunch, 45-60g carbs at supper, 15-30g carbs at 3 snacks per day. 4. Add activity to every day, try walking or being active after each meal to help control blood sugar levels. 5.Call or e-mail educator if 3 or more blood sugars are above goal in 1 week. Call or e-mail with questions or concerns. Eugenie Zee MS, RD, LD, CDE [facility] for the [facility]: For Your Diabetes Education or Nutrition Appointments Call: [phone] For Diabetes Education and Nutrition Related Questions: E-mail: [email or web address] If you need a medication refill please contact your pharmacy. Please allow 3 business days for yourrefills to be completed. Here are some ideas for breakfast or bedtime snack. Pick a carbohydrate from the right and a protein from the left. If you have carbohydrates 30 grams of total carbohydrate and 3-5 grams of fiber that is even better. Fruits are not listed as they can cause the blood sugar to raise blood sugar quickly and be used upearly in the night. Fruits are better at meals, or morning or afternoon snack. Protein/Fat list (about 14 grams of protein or 2 fat servings) 2 slices of cheese 2 TBS Peanut butter/[place] butter/Sun butter ?? cup Cottage cheese 2% 2 pieces of toast 2 oz any cooked meat - less than deck of cards size 1.5 oz of soy nuts Avocado or guacamole ?? cup tuna - can add mayonnaise 2 eggs - boiled, poached, fried, scrambled, omelet 30 chips 1 veggie ning (might have carbohydrates also) 2 TBS Coconut 12 shrimp - not breaded 2-1oz meatballs 2 Tbs cream cheese - plain, veggie, salmon - no fruit or honey. ?? cup of nuts 10 olives Tofu or Temph 4-5oz Carbohydrate list (about 30 grams of carbohydrate) Armenian Muffin 10 crackers 1 hamburger or hot dog bun 1 whole wheat mónica 6 maria g cracker squares 1 cup full fat ice cream - no candy or sauce Tristanian yogurt - 30 grams of carbohydrate 2 - 6 inch tortillas corn or flour 2 toaster waffles - no syrup 6 cups popcorn - unsweetened 1 cup of unsweetened lentils or beans 1 cup potato salad You can always add vegetables with dip, salad dressing or salsa also. TY GENERAL COUNSEL documented in this encounter Progress Notes * Eugenie Zee RD - 06/14/2023 10:45 AM CST Images from the original note were not included. Diabetes Self-Management Education & Support Type of service: Video Visit If the video visit is dropped, the video visit invitation should be resent by: Text to cell phone: [phone] Originating Location (pt. Location): Home Distant Location (provider location): [facility] Mode of Communication: Video Conference via Sites[employer] Video Start Time: 10:44 Video End Time (time video stopped): 11:16- call dropped then called patient How would patient like to obtain AVS? MyChart SUBJECTIVE/OBJECTIVE: Presents for education related to gestational diabetes. Accompanied by: Self Diabetes management related comments/concerns: Do I have to worry about lows Gestational weeks: 30w Had any babies over 9 lbs: No Previously had Gestational Diabetes: No Heart disease, mitral valve prolapse or rheumatic fever?: No Hypertension : No High Cholesterol: No High Triglycerides: No Do you use tobacco products?: No Do you drink beer, wine or hard liquor?: No Cultural Influences/Ethnic Background: Choose not to answer Estimated Date of Delivery: Aug 23, 2023, currently 30w0d 1 hour OGTT Lab Results Component Value Date GLU1 142 (H) 05/17/2023 3 hour OGTT Glucose challenge- had had food 2.5 hours prior Fasting Lab Results Component Value Date GTTGF 123 (H) 05/31/2023 1 hour Lab Results Component Value Date GTTG1 192 (H) 05/31/2023 2 hour Lab Results Component Value Date GTTG2 218 (H) 05/31/2023 3 hour Lab Results Component Value Date GTTG3 110 05/31/2023 Lifestyle and Health Behaviors: Cultural/sabianist diet restrictions?: No Meal planning/habits: Carb counting How many times a week on average do you eat food made away from home (restaurant/take-out)?: 0 Meals include: Breakfast, Lunch, Dinner, Morning Snack, Afternoon Snack, Evening Snack Breakfast: eggs or cottage cheese- sometimes berries- if having toast 1 pc ww toast with avocado and cheese Lunch: some foods from kids meal- protein (turkey, chicken), salad OR vegetable, broccoli or brussels sprouts Dinner: vegetables, protein Snacks: Snack- danish yogurt, cheese, nuts, guacamole HS snack- eggs OR nuts OR cottage cheese Beverages: Water How many servings of fruits/vegetables per day: 4 (mostly vegetables rarely fruit) Biggest challenges to healthy eating: Other (carbohydrates- finds she feels better with less) Healthy Coping: Emotional response to diabetes: Ready to learn Informal Support system:: Family Stage of change: ACTION (Actively working towards change) Current Management: Taking medications for gestational diabetes?: No Difficulty affording diabetes testing supplies?: No ASSESSMENT: Current blood sugars are in target. She is eating less carbohydrates than recommended. She would benefit from trying a consistent HS snack to help prevent liver glucose output. She is eating vegetables, proteins, and high fiber whole grains. She is only using CGM, would benefit from a fasting fingerstick -Pancakes-kodiak pancakes Recommended testing fasting readings with fingersticks- 06/10- dinner higher carbohydrate meal INTERVENTION: Requested patient use a fingerstick for fasting blood sugars due to some elevations. Recommended trying to up carbohydrates to 30g at 3 meals per day OR 20g to start. Educational topics covered today: GDM diagnosis, pathophysiology, Risks and Complications of GDM, Means of controlling GDM, Using a Blood Glucose Monitor, Blood Glucose Goals, Logging and Interpreting Glucose Results, Ketone Testing,When to Call a Ammonium Nitrate Neutralizer or OB Provider, Healthy Eating During , Counting Carbohydrates, Meal Planning for GDM, and Physical Activity Educational materials provided today: Carlos Understanding Gestational Diabetes GDM Log Book Sharps Disposal Care After Delivery Pt verbalized understanding of concepts discussed and recommendations provided today. PLAN: Check glucose 4 times daily, before breakfast and 1 hour after each meal. Check Ketones daily for one week, if negative, reduce testing to once a week. Physical activity recommended: discuss at follow up . Meal plan: 20-30 carbs at breakfast, 20-45g carbs at lunch, 20-45g carbs at supper, 15-30g carbs at3 snacks a day. Follow consistent CHO meal plan, eat CHO and protein/fat at all meals/snacks. Call/e-mail/Tã Em Béhart message public health educator if 3 or more blood sugars are above the goal in 1 week, if ketones are positive, or with questions/concerns. Eugenie Zee MS, RD, LD, CDE Time Spent: 50 minutes Encounter Type: Individual Any diabetes medication dose changes were made via the CDE Protocol and Collaborative Practice Agreement with the patient's SPECIALTY PERSON provider. A copy of this encounter was shared with the provider. TY GENERAL COUNSEL documented in this encounter Plan of Treatment Upcoming Encounters Date Type Department Care Team (Late st Contact Info) Description 07/22/2023 8:45 AM DEPUTY GENERAL COUNSEL Appointment [facility] [place] [address] [place] [phone] Sheila Jones MD [address] [place], [place] [address] [phone] 07/22/2023 9:15 AM DEPUTY GENERAL COUNSEL Office Visit [facility] [place] [address] [place] [address] [phone] Sheila Jones MD [address] [place], [place] [address] [phone] 07/26/2023 8:00 AM DEPUTY GENERAL COUNSEL Appointment [facility] [place] [address] [place] [phone] Jennifer Boyer MD [address] [place], [place] [phone] Rayshawn Nunez MD [address] [place], [place] [address] [phone] 07/26/2023 8:30 AM DEPUTY GENERAL COUNSEL Office Visit [facility] [place] [address] [place] [phone] Jennifer Boyer MD [address] [place], [place] [address] [phone] Rayshawn Nunez MD [address] [place], [place] [address] [phone] 07/29/2023 8:00 AM DEPUTY GENERAL COUNSEL Office Visit [address] [phone] Laureano Bennett MD [address] [place] [phone] 07/29/2023 11:45 AM DEPUTY GENERAL COUNSEL Appointment [facility] [address] [phone] Jennifer Boyer MD [address] [place] [address] 07/29/2023 12:15 PM DEPUTY GENERAL COUNSEL Office Visit [facility] [address] [phone] Jennifer Boyer MD [address] [place] [address] 08/05/2023 8:00 AM DEPUTY GENERAL COUNSEL Office Visit [address] [phone] Laureano Bennett MD [address] [place] [address] [phone] 08/23/2023 Hospital Encounter [facility] [address] [place] [phone] Laureano Bennett MD [address] [place] [phone] documented as of this encounter Visit Diagnoses Diagnosis Gestational diabetes mellitus (GDM), antepartum, gestational diabetes method of control unspecified documented in this encounter Additional Health Concerns Assessment Noted Time PHQ-9 Depression Total Score: 0 11/28/20 23 9:06 AM DEPUTY GENERAL COUNSEL documented as of this encounter Care Teams Corrosion Control Specialist Relationship Specialty [place] [address] [place] [address] PCP - General Family Medicine 07/07/20 Laureano Bennett MD [address] [place] [address] Assigned PCP 08/14/[address] [place] [address] [place] [address] Ammonium Nitrate Neutralizer Dietitian, Registered 06/14/23 documented as of this encounter
--- OUTSIDE RECORDS SUMMARY | 2023-07-21 14:00 | XMS_ITS | Encounter Summary ---
Author Name Unknown Organization [facility] Address [facility] [place] [address] Care Team Providers Care Stationary Engineer Apprentice Name Role Phone Laureano Bennett MD Primary Care Provider [phone] Laureano Bennett MD Unavailable [phone] Unavailable [phone] Reason for Visit * Reason Onset Date Comments Referral 06/10/2023 No available chema ts for classes virtually for expected time of the referral Encounter Details Date Type Department Care Team ([facility] st Contact Info) Description 06/10/[address] [phone] Unknown, Provider Referral (No available appts for classes virtually for expected time of the referral) Social History Tobacco Use Types Packs/Day Years [...] encounter Miscellaneous Notes * Telephone Encounter - Radha Pascal RD - 06/14/2023 7:[address] JUSTICE Contacted Yu today to discuss scheduling. Scheduled with Eugenie at 1045 am virtual visit today. Radha Pascal RD, LD, [facility] Certified Diabetes Care & Produce Sorter Outpatient Adult Care - [facility] COURT JUSTICE * Telephone Encounter - Terri Carlos - 06/10/2023 12:32 PM CST [facility] Phone Message May a detailed message be left on voicemail: yes Reason for Call: Appointment Intake Referring Provider Name: Dr Laureano Bennett Diagnosis and/or Symptoms: Gestational diabetes mellitus (GDM), antepartum, gestational diabetes method of . No available times available for the patient for the referral that should be in one week. She wouldlike virtual appts for classes. Action Taken: Message routed to: [facility] Diab ed Travel Screening: Not Applicable COURT JUSTICE documented in this encounter Plan of Treatment Upcoming Encounters Date Type Department Care Team (Late st Contact Info) Description 07/22/2023 8:[address] JUSTICE Appointment [facility] [place] [address] [facility] [address] [place] [phone] Sheila Jones MD [address] [place] [address] 07/22/2023 9:[address] JUSTICE Office Visit [facility] [address] [place] [phone] Sheila Jones MD [address] [place] [address] 07/26/2023 8:[address] JUSTICE [address] [facility] Medicine [place] [address] [facility] [address] [place] [phone] Jennifer Boyer MD [address] [place], [place] [address] Rayshawn Nunez MD [address] [place] [address] 07/26/2023 8:[address] JUSTICE Office Visit [facility] [place] [address] [facility] [address] [place] [phone] Jennifer Boyer MD [address] [place], [place] [phone] Rayshawn Nunez MD [address] [place] [address] 07/29/2023 8:[address] JUSTICE Office Visit [address] [phone] Laureano Bennett MD [address] [place] [address] 07/29/2023 11:[address] JUSTICE Appointment [facility] Medicine [facility] [address] [facility] [address] [place] [phone] Jennifer Boyer MD [address] [place] [address] 07/29/2023 12:[address] JUSTICE Office Visit [facility] Medicine [facility] [address] [facility] [address] [place] [phone] Jennifer Boyer MD [address] [place] [address] 08/05/2023 8:[address] JUSTICE Office Visit [address] [phone] Laureano Bennett MD [address] [place] [address] 08/23/2023 Hospital Encounter [facility] [address] [place] [phone] Laureano Bennett MD [address] [place] [phone] documented as of this encounter Visit Diagnoses Not on filedocumented in this encounter Additional Health Concerns Assessment Noted Time PHQ-9 Depression Total Score: 0 05/17/20 23 9:[address] JUSTICE documented as of this encounter Care Teams Stationary Engineer Apprentice Relationship Specialty Start Date End Date Laureano Bennett MD [address] [place] [address] PCP - General Family Medicine 07/07/20 Laureano Bennett MD [address] [place] [address] Assigned PCP 08/14/[address] [facility] [address] [place] [address] Track Leader Dietitian, Registered 06/14/23 documented as of this encounter
--- OUTSIDE RECORDS SUMMARY | 2023-07-21 14:00 | XMS_ITS | Encounter Summary ---
Author Name Unknown Organization [place] Address [address] [place] [address] Care Team Providers Care Multimedia Instructional Designer Name Role Phone Renee Bennett MD Primary Care Provider Renee Bennett MD Unavailable [phone] Unavailable [phone] Reason for Referral * Diagnostic Imaging Ultrasound (Routine) - Pending Review Specialty Diagnoses / Procedures Referred By Tim nathan Referred To Contact Radiology. Diagnoses Gestational diabetes mellitus (GDM) in third trimester controlled on oral hypoglycemic drug History of IUFD Procedures Maternal US Comprehensive Single F/U Jennifer Boyer MD [address] [place] [address] Referral ID Status Reason Start Date Expiration Date V isits Requested Visits Authorized [id number] Pending Review 07/01/2023 06/30/2024 1 1 AL HEAD ADVERTISER SOLUTIONS * Diagnostic Imaging Ultrasound (Routine) - Pending Review Specialty Diagnoses / Procedures Referred By Conteloina nathan Referred To Contact Radiology. Diagnoses Gestational diabetes mellitus (GDM) in third trimester controlled on oral hypoglycemic drug History of IUFD Procedures Maternal BPP Single Jennifer Boyer MD [address] [place] [address] Referral ID Status Reason Start Date Expiration Date V isits Requested Visits Authorized [id number] Pending Review 07/01/2023 06/30/2024 1 1 AL HEAD ADVERTISER SOLUTIONS * Diagnostic Imaging Ultrasound (Routine) - Pending Review Specialty Diagnoses / Procedures Referred By Contac t Referred To Contact Radiology. Diagnoses Gestational diabetes mellitus (GDM) in third trimester controlled on oral hypoglycemic drug History of IUFD Procedures Maternal BPP Jennifer Samuel MD [address] [place] [address] Referral ID Status Reason Start Date Expiration Date V isits Requested Visits Authorized [id number] Pending Review 07/01/2023 06/30/2024 1 1 AL HEAD ADVERTISER SOLUTIONS * Diagnostic Imaging Ultrasound (Routine) - Pending Review Specialty Diagnoses / Procedures Referred By Contac t Referred To Contact Radiology. Diagnoses Gestational diabetes mellitus (GDM) in third trimester controlled on oral hypoglycemic drug History of IUFD Procedures Maternal BPP Jennifer Samuel MD [address] [place] [address] Referral ID Status Reason Start Date Expiration Date V isits Requested Visits Authorized [id number] Pending Review 07/01/2023 06/30/2024 1 1 AL HEAD ADVERTISER SOLUTIONS * Diagnostic Imaging Ultrasound (Routine) - Pending Review Specialty Diagnoses / Procedures Referred By Contac t Referred To Contact Radiology. Diagnoses Gestational diabetes mellitus (GDM) in third trimester controlled on oral hypoglycemic drug History of IUFD Procedures Maternal BPP Jennifer Samuel MD [address] [place] [address] Referral ID Status Reason Start Date Expiration Date V isits Requested Visits Authorized [id number] Pending Review 07/01/2023 06/30/2024 1 1 AL HEAD ADVERTISER SOLUTIONS * Diagnostic Imaging Ultrasound (Routine) - Pending Review Specialty Diagnoses / Procedures Referred By Contac t Referred To Contact Radiology. Diagnoses Gestational diabetes mellitus (GDM) in third trimester controlled on oral hypoglycemic drug History of IUFD Procedures Maternal BPP Jennifer Samuel MD [address] [place] [address] Referral ID Status Reason Start Date Expiration Date V isits Requested Visits Authorized [id number] Pending Review 07/01/2023 06/30/2024 1 1 AL HEAD ADVERTISER SOLUTIONS * Diagnostic Imaging Ultrasound (Routine) - Pending Review Specialty Diagnoses / Procedures Referred By Contac jac Referred To Contact Radiology. Diagnoses Gestational diabetes mellitus (GDM) in third trimester controlled on oral hypoglycemic drug History of IUFD Procedures Maternal BPP Jennifer Samuel MD [address] [place] [address] Referral ID Status Reason Start Date Expiration Date V isits Requested Visits Authorized [id number] Pending Review 07/01/2023 06/30/2024 1 1 AL HEAD ADVERTISER SOLUTIONS * Diagnostic Imaging Ultrasound (Routine) - Pending Review Specialty Diagnoses / Procedures Referred By Conteloina nathan Referred To Contact Radiology. Diagnoses Gestational diabetes mellitus (GDM) in third trimester controlled on oral hypoglycemic drug History of IUFD Procedures Maternal BPP Jennifer Samuel MD [address] [place] [address] Referral ID Status Reason Start Date Expiration Date V isits Requested Visits Authorized [id number] Pending Review 07/01/2023 06/30/2024 1 1 AL HEAD ADVERTISER SOLUTIONS Reason for Visit * Reason Comments Ultrasound L2-GDMA2, Hx of term stillbirth Encounter Details Date Type Department Care Team (Late st Contact Info) Description 07/01/2023 8:30 AM GLOBAL HEAD ADVERTISER SOLUTIONS Office Visit [facility] Maternal Medicine [facility] [place] [address] [place] [address] Jennifer Boyer MD [address] [place] [address] Gestational diabetes mellitus (GDM) in [...] as of this encounter Progress Notes * Jennifer Boyer MD - 07/01/2023 8:30 AM CST Please see the imaging tab for details of the ultrasound performed today. Jennifer Boyer MD Specialist in Maternal- Medicine AL HEAD ADVERTISER SOLUTIONS documented in this encounter Nursing Notes * Beatriz Pro RN - 07/01/2023 8:30 AM CST Patient reports active movement, denies pain, contractions, leaking of fluid, or bleeding. Reports blood sugar values within range on 500mg Metformin. Patient denies headache, visual changes, nausea/vomiting, epigastric pain related to preeclampsia. Education provided to patient on Biophysical Profile US. SBAR given to MARYAM MAYERS, see their note in Epic. AL HEAD ADVERTISER SOLUTIONS documented in this encounter Plan of Treatment Upcoming Encounters Date Type Department Care Team (Late st Contact Info) Description 07/22/2023 8:45 AM GLOBAL HEAD ADVERTISER SOLUTIONS Appointment [facility] Maternal Medicine [place] [address] [facility] [address] [place] [phone] Sheila Jones MD [address] [place], [place] [phone] 07/22/2023 9:15 AM GLOBAL HEAD ADVERTISER SOLUTIONS Office Visit [facility] Maternal Medicine [place] [address] [facility] [address] [place] [phone] Sheila Jones MD [address] [place], [place] [address] [phone] 07/26/2023 8:00 AM GLOBAL HEAD ADVERTISER SOLUTIONS Appointment [facility] Maternal Medicine [place] [address] [facility] [address] [place] [phone] Jennifer Boyer MD [address] [place], [place] [address] Rayshawn Nunez MD [address] [place], [place] [address] 07/26/2023 8:30 AM GLOBAL HEAD ADVERTISER SOLUTIONS Office Visit [facility] Maternal Medicine [place] [address] [facility] [address] [place] [address] Jennifer Boyer MD [address] [place] [address] Rayshawn Nunez MD [address] [place] [address] 07/29/2023 8:00 AM GLOBAL HEAD ADVERTISER SOLUTIONS Office Visit [address] [phone] Renee Bennett MD [address] [place] [address] [phone] 07/29/2023 11:45 AM GLOBAL HEAD ADVERTISER SOLUTIONS Appointment [facility] Maternal Medicine [place] [address] [facility] [address] [place] [phone] Jennifer Boyer MD [address] [place] [address] 07/29/2023 12:15 PM GLOBAL HEAD ADVERTISER SOLUTIONS Office Visit [facility] Maternal Medicine [place] [address] [facility] [address] [place] [phone] Jennifer Boyer MD [address] [place] [address] 08/05/2023 8:00 AM GLOBAL HEAD ADVERTISER SOLUTIONS Office Visit [address] [phone] Renee Bennett MD [address] [place] [address] 08/23/2023 Hospital Encounter [facility] [address] [place] [phone] Renee Bennett MD [address] [place], [place] 528[address] Scheduled Orders Name Type Priority Associated Diagnoses Orde r Schedule Maternal BPP Single Imaging Routine Gestational diabetes mellitus (GDM) in third trimester controlled on oral hypoglycemic drug Prior with demise and current in third trimester Expected: 07/22/2023 (Approximate), Expires: 06/30/2024 Maternal BPP Single Imaging Routine Gestational diabetes mellitus (GDM) in third trimester controlled on oral hypoglycemic drug Prior with demise and current in third trimester Expected: 07/26/2023 (Approximate), Expires: 06/30/2024 Maternal US Comprehensive Single F/U Imaging Routine Gestational diabetes mellitus (GDM) in third trimester controlled on oral hypoglycemic drug Prior with demise and current in third trimester Expected: 07/29/2023 (Approximate), Expires: 06/30/2024 documented as of this encounter Results * Maternal BPP Single (07/18/2023 3:55 PM GLOBAL HEAD ADVERTISER SOLUTIONS) Anatomical Region Laterality Modality Ultrasound 07/18/2023 3:34 PM GLOBAL HEAD ADVERTISER SOLUTIONS Impressions 07/18/2023 3:57 PM GLOBAL HEAD ADVERTISER SOLUTIONS IMPRESSION ----- 1) Normal amniotic fluid volume. 2) BPP is reassuring. Narrative 07/18/2023 3:57 PM GLOBAL HEAD ADVERTISER SOLUTIONS ?BPP ----- Pat. Name: YU LOGAN ? Study Date: ??07/18/2023 3:34pm Pat. NO: ??[id number] ?Referring ??MD: RENEE BENNETT Site: ??[facility] ? Remelt Pan Tank Operator: Kirstin Gold RDMS : ??1995 ?Age: ?? [...] LOGAN Study Date: 07/18/2023 3:34pm Pat. NO: [id number] Referring MD: RENEE BENNETT Site: [facility] Remelt Pan Tank Operator: Kirstin Gold RDMS : 1995 Age: 28 [...] 2) BPP is reassuring. Jennifer Boyer MD [facility] US ORDERAB LES * Maternal BPP Single (07/15/2023 12:07 PM GLOBAL HEAD ADVERTISER SOLUTIONS) Anatomical Region Laterality Modality Ultrasound 07/15/2023 11:4 0 AM GLOBAL HEAD ADVERTISER SOLUTIONS Impressions 07/15/2023 2:59 PM GLOBAL HEAD ADVERTISER SOLUTIONS IMPRESSION ----- 1) [place] intrauterine at 34w 3d gestational age. 2) The BPP is reassuring. 3) The amniotic fluid volume appeared normal. Narrative 07/15/2023 2:59 PM GLOBAL HEAD ADVERTISER SOLUTIONS ?BPP ----- Pat. Name: YU LOGAN ? Study Date: ??07/15/2023 11:40am Pat. NO: ??[id number] ?Referring ??: RENEE BENNETT Site: ??[facility] ? Remelt Pan Tank Operator: Makeda Hassan RDMS : ??1995 ?Age: ?? [...] - 07/15/2023 BPP ----- Pat. Name: YU LOGAN Study Date: 07/15/2023 11:40am Pat. NO: [id number] Referring MD: RENEE BENNETT Site: [facility] Remelt Pan Tank Operator: Makeda Hassan RDMS : 1995 Age: 28 [...] fluid volume appeared normal. Jennifer Boyer MD [facility] US ORDERAB LES * Maternal BPP Single (2023 8:41 AM GLOBAL HEAD ADVERTISER SOLUTIONS) Anatomical Region Laterality Modality Ultrasound 2023 8:14 AM GLOBAL HEAD ADVERTISER SOLUTIONS Impressions 2023 8:44 AM GLOBAL HEAD ADVERTISER SOLUTIONS IMPRESSION ----- 1. [place]field intrauterine at 34w 0d gestational age here for testing. 2. The fetus is in BREECH presentation. The amniotic fluid volume is normal. 3. The BPP is 01/25. Narrative 2023 8:44 AM GLOBAL HEAD ADVERTISER SOLUTIONS ?BPP ----- Pat. Name: YU LOGAN ? Study Date: ??2023 8:14am Pat. NO: ??[id number] ?Referring ??MD: RENEE BENNETT Site: ??[facility] ? Remelt Pan Tank Operator: Kirstin Gold RDMS : ??1995 ?Age: ?? [...] - 2023 BPP ----- Pat. Name: YU LOGAN Study Date: 2023 8:14am Pat. NO: [id number] Referring MD: RENEE BENNETT Site: [facility] Remelt Pan Tank Operator: Kirstin Gold RDMS : 1995 Age: 28 [...] fluid volume isnormal. 3. The BPP is 01/25. Jennifer Boyer MD [facility] US ORDERAB LES * Maternal BPP Single (07/06/2023 3:49 PM GLOBAL HEAD ADVERTISER SOLUTIONS) Anatomical Region Laterality Modality Ultrasound 07/06/2023 3:32 PM GLOBAL HEAD ADVERTISER SOLUTIONS Impressions 07/06/2023 3:53 PM GLOBAL HEAD ADVERTISER SOLUTIONS IMPRESSION ----- 1) Normal amniotic fluid volume. 2) BPP is reassuring. Narrative 07/06/2023 3:53 PM GLOBAL HEAD ADVERTISER SOLUTIONS ?BPP ----- Pat. Name: JUAN LOGANA ? Study Date: ??07/06/2023 3:32pm Pat. NO: ??[id number] ?Referring ??: RENEE BENNETT Site: ??[facility] ? Remelt Pan Tank Operator: Renetta Garcia RDMS : ??1995 ?Age: ?? [...] - 07/06/2023 BPP ----- Pat. Name: YU LOGAN Study Date: 07/06/2023 3:32pm Pat. NO: [id number] Referring MD: RENEE BENNETT Site: [facility] Remelt Pan Tank Operator: Renetta Garcia RDMS : 1995 Age: 27 [...] 2) BPP is reassuring. Jennifer Boyer MD [facility] US ORDERAB LES * Maternal BPP Single (07/04/2023 3:38 PM GLOBAL HEAD ADVERTISER SOLUTIONS) Anatomical Region Laterality Modality Ultrasound 07/04/2023 3:18 PM GLOBAL HEAD ADVERTISER SOLUTIONS Impressions 07/04/2023 5:32 PM GLOBAL HEAD ADVERTISER SOLUTIONS IMPRESSION ----- 1) [place] intrauterine at 32w 6d gestational age. 2) The BPP is reassuring. 3) The amniotic fluid volume appeared normal. Narrative 07/04/2023 5:32 PM GLOBAL HEAD ADVERTISER SOLUTIONS ?BPP ----- Pat. Name: YU LOGAN ? Study Date: ??07/04/2023 3:18pm Pat. NO: ??[id number] ?Referring ??MD: RENEE BENNETT Site: ??[facility] ? Remelt Pan Tank Operator: Renetta Garcia : ??1995 ?Age: ?? 27 ----- INDICATION [...] FHR 126 bpm. movements visualized. Presentation maribell brevanessa. Placenta Anterior. Umbilical cord previously studied. AMNIOTIC [...] - 07/04/2023 BPP ----- Pat. Name: YU LOGAN Study Date: 07/04/2023 3:18pm Pat. NO: [id number] Referring MD: RENEE BENNETT Site: [facility] Remelt Pan Tank Operator: Renetta Garcia RDMS : 1995 Age: 27 [...] fluid volume appeared normal. Jennifer Boyer MD [facility] US ORDERAB LES documented in this encounter Visit Diagnoses Diagnosis Gestational diabetes mellitus (GDM) in third trimester controlled on oral hypoglycemic drug- Primary Prior with demise and current in third trimester Gestational diabetes mellitus (GDM) in third trimester controlled on oral hypoglycemic drug Prior with demise and current in third trimester Gestational diabetes mellitus (GDM) in third trimester controlled on oral hypoglycemic drug Prior with demise and current in third trimester Gestational diabetes mellitus (GDM) in third trimester controlled on oral hypoglycemic drug Prior with demise and current in third trimester Gestational diabetes mellitus (GDM) in third trimester controlled on oral hypoglycemic drug Prior with demise and current in third trimester Gestational diabetes mellitus (GDM) in third trimester controlled on oral hypoglycemic drug Prior with demise and current in third trimester documented in this encounter Additional Health Concerns Assessment Noted Time PHQ-9 Depression Total Score: 0 05/17/20 23 9:06 AM GLOBAL HEAD ADVERTISER SOLUTIONS documented as of this encounter Care Teams Multimedia Instructional Designer Relationship Specialty Start Date End Date Renee Bennett MD [address] [place] [address] PCP - General Family Medicine 07/07/20 Renee Bennett MD [address] [place] [address] Assigned PCP 08/14/[address] [facility] [address] [place] [address] Data Entry Machine Operator Dietitian, Registered 06/14/23 documented as of this encounter
--- OUTSIDE RECORDS SUMMARY | 2023-07-21 14:00 | XMS_ITS | Encounter Summary ---
Author Name Unknown Organization [place] Address [address] [facility] [place] [address] Care Team Providers Care Group Dynamics Instructor Name Role Phone Laureano Bennett MD Primary Care Provider [phone] Laureano Bennett MD Unavailable [phone] Unavailable [phone] Encounter Details Date Type Department Care Team (Latest Contact Info) Description 06/21/2023 Travel Social History Tobacco Use Types Packs/Day [...] st Contact Info) Description 07/22/2023 8:45 AM RESTORATIVE REHAB AIDE Appointment [facility] Maternal Medicine [place] [address] [facility] [address] [place] [phone] Sheila Jones MD [address] [place], [place] [address] 07/22/2023 9:15 AM RESTORATIVE REHAB AIDE Office Visit [facility] Maternal Medicine [place] [address] [facility] [address] [place] [phone] Sheila Jones MD [address] [place], [place] [address] 07/26/2023 8:00 AM RESTORATIVE REHAB AIDE Appointment [facility] Maternal Medicine [place] [address] [facility] [address] [place] [phone] Jennifer Boyer MD [address] [place], [place] [address]65[address] Rayshawn Nunez MD [address] [place], [place] [address] 07/26/2023 8:30 AM RESTORATIVE REHAB AIDE Office Visit [facility] Maternal Medicine [place] [address] [facility] [address] [place] [phone] Jennifer Boyer MD [address] [place], [place] [address] Rayshawn Nunez MD [address] [place] [address] 07/29/2023 8:00 AM RESTORATIVE REHAB AIDE Office Visit [address] [phone] Laureano Bennett MD [address] [place] [address] [phone] 07/29/2023 11:45 AM RESTORATIVE REHAB AIDE Appointment [facility] Maternal Medicine [facility] [address] [facility] [address] [place] [phone] Jennifer Boyer MD [address] [place] [address] 07/29/2023 12:15 PM RESTORATIVE REHAB AIDE Office Visit [facility] Maternal Medicine [facility] [address] [facility] [address] [place] [phone] Jennifer Boyer MD [address] [place] [address] 08/05/2023 8:00 AM RESTORATIVE REHAB AIDE Office Visit [address] [phone] Laureano Bennett MD [address] [place] [address] [phone] 08/23/[address] [facility] [address] [place] [phone] Laureano Bennett MD [address] [place] [address] [phone] documented as of this encounter Visit Diagnoses Not on filedocumented in this encounter Additional Health Concerns Assessment Noted Time PHQ-9 Depression Total Score: 0 05/17/20 23 9:06 AM RESTORATIVE REHAB AIDE documented as of this encounter Care Teams Group Dynamics Instructor Relationship Specialty [place] [address] [place] [address] [phone] PCP - General Family Medicine 07/07/20 Laureano Bennett MD [address] [place] [address] [phone] Assigned PCP 08/14/[address] [place] [address] Publicity Writer Dietitian, Registered 06/14/23 documented as of this encounter
--- OUTSIDE RECORDS SUMMARY | 2023-07-21 14:00 | XMS_ITS | Encounter Summary ---
Author Name Unknown Organization [place] Address [address] [facility] [place] [address] Care Team Providers Care Director It Project Name Role Phone Laureano Bennett MD Primary Care Provider [phone] Laureano Bennett MD Unavailable [phone] Unavailable [phone] Reason for Visit * Reason Comments Ultrasound L2-GDM Encounter Details Date Type Department Care Team ([facility] st Contact Info) Description 06/22/2023 PRE VISIT [facility] Maternal Medicine [facility] [place] [address] [facility] [address] [place] [address] Violette Zhou RN Ultrasound (L2-GDM) Social History Tobacco Use Types Packs/Day Years [...] st Contact Info) Description 07/22/2023 8:45 AM WEIGHER AND CHARGER Appointment [facility] Maternal Medicine [place] [address] [place] [phone] Sheila Jones MD [address] [place], [place] [phone] 07/22/2023 9:15 AM WEIGHER AND CHARGER Office Visit [facility] Maternal Medicine [place] [address] [place] [phone] Sheila Jones MD [address] [place], [place] [phone] 07/26/2023 8:00 AM WEIGHER AND CHARGER Appointment [facility] Maternal Medicine [place] [address] [place] [phone] Jennifer Boyer MD [address] [place], [place] [phone] Rayshawn Nunez MD [address] [place], [place] [address] 07/26/2023 8:30 AM WEIGHER AND CHARGER Office Visit [facility] M[facility] [place] [address] [place] [address] Jennifer Boyer MD [address] [place] [address] Rayshawn Nunez MD [address] [place] [address] 07/29/2023 8:00 AM WEIGHER AND CHARGER Office Visit [address] [phone] Laureano Bennett MD [address] [place] [address] [phone] 07/29/2023 11:45 AM WEIGHER AND CHARGER Appointment [facility] Maternal Medicine [facility] [address] [place] [phone] Jennifer Boyer MD [address] [place] [address] 07/29/2023 12:15 PM WEIGHER AND CHARGER Office Visit [facility] Maternal Medicine [facility] [address] [phone] Jennifer Boyer MD [address] [place] [address] 08/05/2023 8:00 AM WEIGHER AND CHARGER Office Visit [address] [phone] Laureano Bennett MD [address] [place] [address] [phone] 08/23/2023 Hospital Encounter [facility] [address] [place] [address] [place] [address] [place] [address] [phone] documented as of this encounter Visit Diagnoses Not on filedocumented in this encounter Additional Health Concerns Assessment Noted Time PHQ-9 Depression Total Score: 0 05/17/20 23 9:06 AM WEIGHER AND CHARGER documented as of this encounter Care Teams Director It Project Relationship Specialty Start Date End Date Laureano Bennett MD [address] [place] [address] [phone] PCP - General Family Medicine 07/07/20 Laureano Bennett MD [address] [place] [address] [phone] Assigned PCP 08/14/[address] [facility] [place] [address] [place] [address] Barrel Centerer Dietitian, Registered 06/14/23 documented as of this encounter
--- OUTSIDE RECORDS SUMMARY | 2023-07-21 14:00 | XMS_ITS | Encounter Summary ---
Author Name Unknown Organization [place] Address [address] [place] [address] Care Team Providers Care Supervisor Sheet Manufacturing Name Role Phone Laureano Bennett MD Primary Care Provider [phone] Laureano Bennett MD Unavailable [phone] Reason for Referral * Patient Education (Urgent: 3-5 Days) - Referral NOT Required Specialty Diagnoses / Procedures Referred By Contac t Referred To Contact Diabetes Education Diagnoses Gestational diabetes mellitus (GDM), antepartum, gestational diabetes method of control unspecified Laureano Bennett MD [address] [place] [address] Referral ID Status Reason Start Date Expiration Date V isits Requested Visits Authorized [id number] Referral NOT Required 06/03/2023 06/02/2024 1 1 Question Answer Last HgbA1c: No past A1C Type of Training and number of hours: New Diagnosis: Initial DSME/T - 10 hours Diabetes Type: Gestational Diabetes Diabetes Co-Morbidities: none A1C Goal: <7.0 A1C is: No past HGBA1C Medical Nutrition Therapy (MNT) for Diabetes New diagnosis: Initial MNT - 3 hours Diabetes Education Topics: Comprehensive Knowledge Assessment and Instruction Special Educational Needs Requiring Individual DSMT: No Type 1 or Type 2 group class available within 2 months Recommended Visit Mode: Per Patient Preference Comments If you have not heard from the scheduling office within 2 business days, please call [phone] for [facility], for [facility] or [phone] for the [facility]. Medicare covers: 10 hours of initial DSMT in 12 month period from the time of first visit, plus 2 hours of follow-up DSMT annually, and additional hours as requested for insulin training. MNT for diabetes Medical Nutrition Therapy with a Registered Dietitian can be provided in coordination with Diabetes Self-Management Training to assist in achieving optimal diabetes management. Medicare will cover: 3 hours initial MNT in 12 month period after first visit, plus 2 hours of follow-up MNT annually Please be aware that coverage of these services is subject to the terms and limitations of your health insurance plan. Call member services at your health plan to determine Diabetes Self-Management Training (Codes G0108 and G0109) and Medical Nutrition Therapy (Codes 26577 and 98600) benefits and ask which blood glucose monitor brands are covered by your plan. Please bring the following with you to your appointment: 1. List of current medications 2. List of Blood Glucose Monitor brands that are covered by your insurance plan 3. Blood Glucose Monitor and log book 4. Food records for the 3 days prior to your visit CHANGEOVER OPERATOR Reason for Visit * Reason Comments Care Encounter Details Date Type Department Care Team (Late st Contact Info) Description 06/03/2023 8:00 AM LOOM CHANGEOVER OPERATOR Office Visit [address] [phone] Laureano Bennett MD [address] [place] [address] , unspecified gestational age (Primary Dx); Varicose [...] Sign Reading Time Taken Comments Blood Pressure 118/64 06/03/2023 7:53 AM LOOM CHANGEOVER OPERATOR Pulse 73 06/03/2023 7:53 AM LOOM CHANGEOVER OPERATOR Temperature 36.6 ??C (97.9 ??F) 06/03/2023 7:53 AM CS T Respiratory Rate 16 06/03/2023 7:53 AM LOOM CHANGEOVER OPERATOR Oxygen Saturation 100% 06/03/2023 7:53 AM LOOM CHANGEOVER OPERATOR Inhaled Oxygen Concentration - - Weight 79.6 kg (175 lb 6.4 oz) 06/03/2023 7:53 A M LOOM CHANGEOVER OPERATOR Height 174 cm (5' 8.5) 06/03/2023 7:53 AM LOOM CHANGEOVER OPERATOR Body Mass Index 26.28 06/03/2023 7:53 AM LOOM CHANGEOVER OPERATOR documented in this encounter Patient Instructions * Patient Instructions* Laureano Bennett MD - 06/03/2023 8:00 AM LOOM CHANGEOVER OPERATOR Real Food for Gestational Diabetes: An Effective Alternative to the Conventional Nutrition Approach- Eloise Green ?Fasting and preprandial blood glucose concentration: <95 mg/dL (5.3 mmol/L) ?One-hour postprandial blood glucose concentration: <140 mg/dL (7.8 mmol/L) ?Two-hour postprandial glucose concentration: <120 mg/dL (6.7 mmol/L) CHANGEOVER OPERATOR documented in this encounter Progress Notes * Laureano Bennett MD - 06/03/2023 8:00 AM CST S:Yu Renee is here today for a Visit at 28w3d gestation. Concerns today: failed 3-hour glucose test, and varicose veins Bleeding: No Cramping/Contractions:No Leaking of fluid: No Baby moving: Yes O: See OB Vitals Varicose veins ASSESSMENT:/PLAN: DM ed referral - johnny; glucose meter sent Recommended getting: Real Food for Gestational Diabetes: An Effective Alternative to the Conventional Nutrition Approach - Eloise Green Return in 2 weeks. CHANGEOVER OPERATOR documented in this encounter Plan of Treatment Upcoming Encounters Date Type Department Care Team (Late st Contact Info) Description 07/22/2023 8:45 AM LOOM CHANGEOVER OPERATOR Appointment [facility] [place] [address] [place] [phone] Sheila Jones MD [address] [place], [place] [phone] 07/22/2023 9:15 AM LOOM CHANGEOVER OPERATOR Office Visit [facility] [place] [address] [place] [phone] Sheila Jones MD [address] [place], [place] [address] 07/26/2023 8:00 AM LOOM CHANGEOVER OPERATOR Appointment [facility] [place] [address] [place] [address] [phone] Jennifer Boyer MD [address] [place], [place] [address] Rayshawn Nunez MD [address] [place], [place] [address] 07/26/2023 8:30 AM LOOM CHANGEOVER OPERATOR Office Visit [facility] [place] [address] [facility] [address] [place] [phone] Jennifer Boyer MD [address] [place] [address] Rayshawn Nunez MD [address] [place] [address] 07/29/2023 8:00 AM LOOM CHANGEOVER OPERATOR Office Visit [address] [phone] Laureano Bennett MD [address] [place] [address] 07/29/2023 11:45 AM LOOM CHANGEOVER OPERATOR Appointment [facility] [place] [address] [facility] [address] [place] [phone] Jennifer Boyer MD [address] [place] [address] 07/29/2023 12:15 PM LOOM CHANGEOVER OPERATOR Office Visit [facility] [place] [address] [facility] [address] [place] [phone] Jennifer Boyer MD [address] [place] [address] 08/05/2023 8:00 AM LOOM CHANGEOVER OPERATOR Office Visit [address] [place] [phone] [place] [address] [place] [address] [phone] 08/23/2023 Hospital Encounter [facility] [address] [place] [phone] [place] [address] [place] [phone] Scheduled Referrals Name Type Priority Associated Diagnoses Orde r Schedule AMB Adult Environmental Services Worker Referral Referral Urgent: 3-5 Days Gestational diabetes mellitus (GDM), antepartum, gestational diabetes method of control unspecified Expected: 06/03/2023 (Approximate), Expires: 06/03/2024 documented as of this encounter Procedures Procedure Name Priority Date/Time Associated Diagnosis Comments GLUCOSE ALBUMIN OB URINE Routine 06/03/2023 8:42 AM LOOM CHANGEOVER OPERATOR , unspecified gestational age documented in this encounter Results * (ABNORMAL) Glucose and albumin, OB urine (06/03/2023 8:42 AM LOOM CHANGEOVER OPERATOR) Protein Albumin Urine Negative Negative mg/dL 06/03/2023 8:44 AM LOOM CHANGEOVER OPERATOR [facility] Glucose Urine 100(A) Negative mg/dL 06/03/2023 8:44 AM LOOM CHANGEOVER OPERATOR [facility] Urine MID-STREAM URINE SPECIMEN / Unknown Non-blood Collection / Unknown 06/03/2023 8:42 AM LOOM CHANGEOVER OPERATOR 06/03/2023 8:42 AM LOOM CHANGEOVER OPERATOR Laureano Bennett MD LAB - URINE ORDERABL ES [facility] [address] [place] [address] Lab (no room number, 1st floor of clinic) [place] [address], [facility] [phone] documented in this encounter Visit Diagnoses Diagnosis , unspecified gestational age- Primary Varicose veins during Gestational diabetes mellitus (GDM), antepartum, gestational diabetes method of control unspecified documented in this encounter Additional Health Concerns Assessment Noted Time PHQ-9 Depression Total Score: 0 05/17/20 23 9:06 AM LOOM CHANGEOVER OPERATOR documented as of this encounter Care Teams Supervisor Sheet Manufacturing Relationship Specialty Start Date End Date Laureano Bennett MD [address] [place], [place] [phone] PCP - General Family Medicine 07/07/20 [place] [address] [place] [address] Assigned PCP 08/14/22 documented as of this encounter
--- OUTSIDE RECORDS SUMMARY | 2023-07-21 14:00 | XMS_ITS | Encounter Summary ---
Author Name Unknown Organization [facility] Address [address] [place] [address] Care Team Providers Care Deputy Sheriff/Investigator Name Role Phone Laureano Bennett MD Primary Care Provider [phone] Laureano Bennett MD Unavailable [phone] Unavailable [phone] Encounter Details Date Type Department Care Team (Latest Contact Info) Description 06/14/2023 Travel Social History Tobacco Use Types Packs/Day [...] st Contact Info) Description 07/22/2023 8:45 AM FARMWORKER DIVERSIFIED CROPS Appointment [facility] [place] [address] [facility] [address] [place] [phone] Sheila Jones MD [address] [place], [place] [address] 07/22/2023 9:15 AM FARMWORKER DIVERSIFIED CROPS Office Visit [facility] [place] [address] [facility] [address] [place] [phone] Sheila Jones MD [address] [place], [place] [phone] 07/26/2023 8:00 AM FARMWORKER DIVERSIFIED CROPS Appointment [facility] [place] [address] [address] [facility] [address] [place] [phone] Jennifer Boyer MD [address] [place], [place] [address] Rayshawn Nunez MD [address] [place], [place] [address] 07/26/2023 8:30 AM FARMWORKER DIVERSIFIED CROPS Office Visit [facility] [place] [address] [address] [facility] [address] [place] [phone] Jennifer Boyer MD [address] [place], [place] [address] Rayshawn Nunez MD [address] [place] [address] 07/29/2023 8:00 AM FARMWORKER DIVERSIFIED CROPS Office Visit [address] [phone] Laureano Bennett MD [address] [place] [address] [phone] 07/29/2023 11:45 AM FARMWORKER DIVERSIFIED CROPS Appointment [facility] [address] [facility] [address] [place] [phone] Jennifer Boyer MD [address] [place] [address] 07/29/2023 12:15 PM FARMWORKER DIVERSIFIED CROPS Office Visit [facility] [address] [facility] [address] [place] [phone] Jennifer Boyer MD [address] [place] [address] 08/05/2023 8:00 AM FARMWORKER DIVERSIFIED CROPS Office Visit [address] [phone] Laureano Bennett MD [address] [place] [address] [phone] 08/23/2023 Hospital Encounter [facility] [address] [place] [phone] Laureano Bennett MD [address] [place] [address] [phone] documented as of this encounter Visit Diagnoses Not on filedocumented in this encounter Additional Health Concerns Assessment Noted Time PHQ-9 Depression Total Score: 0 05/17/20 23 9:06 AM FARMWORKER DIVERSIFIED CROPS documented as of this encounter Care Teams Deputy Sheriff/Investigator Relationship Specialty [place] [address] [place] [address] [phone] PCP - General Family Medicine 07/07/20 Laureano Bennett MD [address] [place] [address] [phone] Assigned PCP 08/14/[address] [place] [address] Management Advisor Dietitian, Registered 06/14/23 documented as of this encounter
--- OUTSIDE RECORDS SUMMARY | 2023-07-21 14:00 | XMS_ITS | Encounter Summary ---
Author Name Unknown Organization [place] Address [address] [place] [address] Care Team Providers Care Family Services Coordinator Name Role Phone Renee Bennett MD Primary Care Provider [phone] Renee Bennett MD Unavailable [phone] Unavailable [phone] Reason for Referral * Diagnostic Imaging Ultrasound (Routine) - Pending Review Specialty Diagnoses / Procedures Referred By Tim t Referred To Contact Radiology. Diagnoses related condition, antepartum Procedures [place] [address] [place] [address] Referral ID Status Reason Start Date Expiration Date V isits Requested Visits Authorized [id number] Pending Review 06/21/2023 06/20/2024 1 1 GER OF CHANGE Encounter Details Date Type Department Care Team (Late st Contact Info) Description 06/21/2023 Transcribe Orders [facility] [place] [address] [facility] [address] [place] [phone] Renee Bennett MD [facility] [place], [place] [phone] related condition, antepartum (Primary Dx) Social History Tobacco Use Types [...] st Contact Info) Description 07/22/2023 8:45 AM MANAGER OF CHANGE Appointment [facility] [place] [address] [facility] [address] [place] [phone] Sheila Jones MD [address] [place], [place] [address] 07/22/2023 9:15 AM MANAGER OF CHANGE Office Visit [facility] [address] [facility] [address] [place] [phone] Sheila Jones MD [address] [place], [place] [address] 07/26/2023 8:00 AM MANAGER OF CHANGE Appointment [facility] [place] [address] [place] [phone] Jennifer Boyer MD [address] [place] [address] Rayshawn Nunez MD [address] [place] [address] 07/26/2023 8:30 AM MANAGER OF CHANGE Office Visit [facility] [place] [address] [facility] [address] [place] [phone] Jennifer Boyer MD [address] [place], [place] [address] Rayshawn Nunez MD [address] [place] [address] 07/29/2023 8:00 AM MANAGER OF CHANGE Office Visit [address] [phone] Renee Bennett MD [address] [place] [address] [phone] 07/29/2023 11:45 AM MANAGER OF CHANGE Appointment [facility] [place] [address] [facility] [address] [place] [phone] Jennifer Boyer MD [address] [place] [address] 07/29/2023 12:15 PM MANAGER OF CHANGE Office Visit [facility] [place] [address] [facility] [address] [place] [phone] Jennifer Boyer MD [address] [place], [place] [address] 08/05/2023 8:00 AM MANAGER OF CHANGE Office Visit [address] [phone] Renee Bennett MD [address] [place] [address] [phone] 08/23/2023 Hospital Encounter [facility] [address] [place] [phone] Renee Bennett MD [address] [place] [address] [phone] documented as of this encounter Results * [facility] US Comprehensive Single (07/01/2023 8:44 AM MANAGER OF CHANGE) Anatomical Region Laterality Modality Ultrasound 07/01/2023 7:55 AM MANAGER OF CHANGE Impressions 07/01/2023 10:53 AM MANAGER OF CHANGE IMPRESSION ----- 1) Brumfield intrauterine at 32w [...] BPP was reassuring. Narrative 07/01/2023 10:53 AM MANAGER OF CHANGE ?Comprehensive ----- Pat. Name: YU RENEE ? Study Date: ??07/01/2023 7:55am Pat. NO: ??[id number] ?Referring ??MD: RENEE BENNETT Site: ??[facility] ? Spray Gun Sizer: Kirstin Gold RDMS : ??1995 ?Age: ?? [...] Biometry: BPD ?77.9 ?mm ? 31w 2d ?Nando MORTON ?103.4 ?mm ? 30w 3d ? Nicolaides HC ?288.2 ?mm ?31w 5d ?Hadlock Cerebellum tr ?43.0 ? mm ?37w 0d ?Nicolaides AC ?285.8 ?mm ?32w 4d ?55% ?Hadlock Femur ?62.3 ? mm ?32w 2d ?Hadlock Humerus ?57.3 ?mm ? 33w 2d ?Randell Weight Calculation: EFW ? 1,943 ?g ? 36% ?Hadlock EFW (lb,oz) ? 4 lb 5 ?oz EFW by ?Hadlock (VGC-AK-MY-FL) Head / Face / Neck Biometry: Doll Dresser ? 6.3 ? mm CM ?8.5 ? [...] vena cava. Inferior vena cava. 3-vessel view. 8-nzkmfe-wyjaowz view. ? Cardiac position. Cardiac size. Cardiac [...] the patient (reviewing medical records/tests), in direct fsrs-lw-pfcg contact with the patient during her visit with the majority spent counseling and discussing the plan of care and documenting the visit in the electronic medical record. Please see note for details. Procedure Note Jennifer Boyer MD - 07/01/2023 Comprehensive ----- Pat. Name: YU RENEE Study Date: 07/01/2023 7:55am Pat. NO: [id number] Referring MD: RENEE BENNETT Site: [place] Spray Gun Sizer: Kirstin Gold RDMS : 1995 Age: 27 [...] 4 lb 5 oz EFW by Hadlock (LSH-PT-AS-FL) Head / Face / Neck Biometry: Doll Dresser 6.3 mm CM 8.5 mm ANATOMY ----- The following structures appear normal: Head / Neck Cranium. Head size. Head shape.Lateral ventricles. Choroid plexus. Midline falx. Cavum septi pellucidi.Cerebellum. Cisterna magna. Parenchyma. Thalami. Vermis. Neck. Face Lips. Heart / Thorax 4-chamber view. RVOT view. LVOT view.Situs. Bicaval view. Superior vena cava. Inferior vena cava. 3-vesselview. 6-zpltzx-ncaxvgx view. Cardiac position. Cardiac size.Cardiac rhythm. Right [...] see the patient (reviewing medical records/tests), in cfpwiheqod-dy-ycpg contact with the patient during her visit [...] The BPP was reassuring. [facility]e Bennett [facility] documented in this encounter Visit Diagnoses Diagnosis related condition, antepartum- Primary related condition, antepartum documented in this encounter Additional Health Concerns Assessment Noted Time PHQ-9 Depression Total Score: 0 05/17/20 23 9:06 AM MANAGER OF CHANGE documented as of this encounter Care Teams Family Services Coordinator Relationship Specialty Start Date End Date Renee Bennett MD [address] [place] [address] [phone] PCP - General Family Medicine 07/07/20 Renee Bennett MD [address] [place] [address] Assigned PCP 08/14/[address] [place] [address] [place] [address] Teacher [employer]cl[employer] Dietitian, Registered 06/14/23 documented as of this encounter
--- OUTSIDE RECORDS SUMMARY | 2023-07-21 14:00 | XMS_ITS | Encounter Summary ---
Author Name Unknown Organization [facility] Address [address] [place] [address]83 Care Team Providers Care Stem Roller Operator Name Role Phone Renee Bennett MD Primary Care Provider [phone] Renee Bennett MD Unavailable [phone] Unavailable [phone] Reason for Referral * Diagnostic Imaging Ultrasound (Routine) - Pending Review Specialty Diagnoses / Procedures Referred By Tim nathan Referred To Contact Radiology. Diagnoses related condition, antepartum Procedures [facility] [place] [address] [place] [id number] Referral ID Status Reason Start Date Expiration Date V isits Requested Visits Authorized [id number] Pending Review 06/21/2023 06/20/[address] CARE PROFESSIONAL Reason for Visit * Diagnostic Imaging Ultrasound (Routine) - Pending Review Specialty Diagnoses / Procedures Referred By Tim nathan Referred To Contact Radiology. Diagnoses related condition, antepartum Procedures [facility] US Comprehensive Single Renee Bennett MD [address] [place] [address] Referral ID Status Reason Start Date Expiration Date V isits Requested Visits Authorized [id number] Pending Review 06/21/2023 06/20/2024 1 1 Encounter Details Date Type Department Care Team (Latest Contact Info) Description 07/01/2023 7:54 AM DIRECT CARE PROFESSIONAL - 07/01/2023 11:59 PM DIRECT CARE PROFESSIONAL Hospital Encounter [facility] [place] [address] [place] [address] Jennifer Boyer MD [address] [facility] [address] [place] [address] related condition, antepartum Discharge Disposition: Home or Self Care Social [...] weekly if negative 50 strip 1 06/14/2023 blood glucose (NO BRAND SPECIFIED) test stripIndications:Gestat [...] 0 ondansetron (ZOFRAN ODT) 8 MG ODT tabIndications:Hypereme [...] glucose monitoring (NO BRAND SPECIFIED) meter device kitIndications:Gestatio nal diabetes mellitus (GDM), antepartum, gestational diabetes method of control unspecified Use to test blood sugar 1-2 times daily or as directed. Preferred blood glucose meter OR supplies to accompany: Blood Glucose Monitor Brands: per insurance. 1 kit 0 06/03/2023 07/15/2023 metFORMIN (GLUCOPHAGE XR) 500 MG 24 hr tabletIndications:Gesta tional diabetes mellitus (GDM), antepartum, gestational diabetes method of control unspecified Take 1-4 tablets (500-2,000 mg) by mouth daily (with dinner) 90 tablet 3 06/21/2023 07/04/2023 documented as of this encounter Plan of Treatment Upcoming Encounters Date Type Department Care Team (Late st Contact Info) Description 07/22/2023 8:45 AM DIRECT CARE PROFESSIONAL Appointment [facility] [place] [address] [address] [facility] [address] [place] [phone] Sheila Jones MD [address] [place] [address] 07/22/2023 9:15 AM DIRECT CARE PROFESSIONAL Office Visit [facility] [place] [address] [address] [facility] [address] [place] [phone] Sheila Jones MD [address] [place] [address] 07/26/2023 8:00 AM DIRECT CARE PROFESSIONAL Appointment [facility] [place] [address] [address] [facility] [address] [place] [phone] Jennifer Boyer MD [address] [place], [place] [address] Rayshawn Nunez MD [address] [place] [address] 07/26/2023 8:30 AM DIRECT CARE PROFESSIONAL Office Visit [facility] [place] [address] [address] [facility] [address] [place] [address] [phone] Jennifer Boyer MD [address] [place], [place] [address] Rayshawn Nunez MD [address] [place], [place] [address] 07/29/2023 8:00 AM DIRECT CARE PROFESSIONAL Office Visit [address] [phone] Renee Bennett MD [address] [place] [address] 07/29/2023 11:45 AM DIRECT CARE PROFESSIONAL Appointment [facility] [address] [facility] [address] [place] [address] Jennifer Boyer MD [address] [place], [place] [address] 07/29/2023 12:15 PM DIRECT CARE PROFESSIONAL Office Visit [facility] [address] [facility] [address] [place] [address] Jennifer Boyer MD [address] [place] [address] 08/05/2023 8:00 AM DIRECT CARE PROFESSIONAL Office Visit [address] [phone] Renee Bennett MD [address] [place] [address] [phone] 08/23/2023 Hospital Encounter [facility] [address] [place] [address] Renee Bennett MD [address] [place] [address] [phone] documented as of this encounter Procedures Procedure Name Priority Date/Time Associated Diagnosis Comments [facility] COMPREHENSIVE SINGLE Routine 07/01/2023 8:44 AM DIRECT CARE PROFESSIONAL related condition, antepartum documented in this encounter Results * [facility] US Comprehensive Single (07/01/2023 8:44 AM DIRECT CARE PROFESSIONAL) Anatomical Region Laterality Modality Ultrasound 07/01/2023 7:55 AM DIRECT CARE PROFESSIONAL Impressions 07/01/2023 10:53 AM DIRECT CARE PROFESSIONAL IMPRESSION ----- 1) [place] intrauterine at 32w [...] BPP was reassuring. Narrative 07/01/2023 10:53 AM DIRECT CARE PROFESSIONAL ?Comprehensive ----- Pat. Name: YU RENEE ? Study Date: ??07/01/2023 7:55am Pat. NO: ??[id number] ?Referring ??MD: RENEE BENNETT Site: ??[facility] ? Elementary Science Teacher: Kirstin Gold RDMS : ??1995 ?Age: ?? [...] 4 lb 5 ?oz EFW by ?Hadlock ([id number]) Head / Face / Neck Biometry: Psychiatric Mental Health Nurse ? 6.3 ? mm CM ?8.5 ? [...] vena cava. Inferior vena cava. 3-vessel view. 9-kvczjx-cjfrvzv view. ? Cardiac position. Cardiac size. Cardiac [...] the patient (reviewing medical records/tests), in direct pdfq-yg-fkat contact with the patient during her visit with the majority spent counseling and discussing the plan of care and documenting the visit in the electronic medical record. Please see note for details. Procedure Note Jennifer Boyer MD - 07/01/2023 Comprehensive ----- Pat. Name: YU RENEE Study Date: 07/01/2023 7:55am Pat. NO: [id number] Referring MD: RENEE BENNETT Site: [facility] Elementary Science Teacher: Kirstin Gold RDMS : 1995 Age: 27 [...] 4 lb 5 oz EFW by Hadlock ([id number]) Head / Face / Neck Biometry: Psychiatric Mental Health Nurse 6.3 mm CM 8.5 mm ANATOMY ----- The following structures appear normal: Head / Neck Cranium. Head size. Head shape.Lateral ventricles. Choroid plexus. Midline falx. Cavum septi pellucidi.Cerebellum. Cisterna magna. Parenchyma. Thalami. Vermis. Neck. Face Lips. Heart / Thorax 4-chamber view. RVOT view. LVOT view.Situs. Bicaval view. Superior vena cava. Inferior vena cava. 3-vesselview. 9-ozpnmp-rcddjgf view. Cardiac position. Cardiac size.Cardiac rhythm. Right [...] see the patient (reviewing medical records/tests), in fdaufmomxv-zt-itiy contact with the patient during her visit [...] The BPP was reassuring. Renee Bennett MD [facility] documented in this encounter Visit Diagnoses Diagnosis related condition, antepartum documented in this encounter Additional Health Concerns Assessment Noted Time PHQ-9 Depression Total Score: 0 05/17/20 9:06 AM DIRECT CARE PROFESSIONAL documented as of this encounter Care Teams Stem Roller Operator Relationship Specialty [place] [address] [place] [address] PCP - General Family Medicine 07/07/20 Renee Bennett MD [address] [place] [address] [phone] Assigned PCP 08/14/[address] [place] [address] [place] [address] Preschool Assistant Dietitian, Registered 06/14/23 documented as of this encounter
--- OUTSIDE RECORDS SUMMARY | 2023-07-21 14:01 | XMS_ITS | Encounter Summary ---
Author Name Unknown Organization [facility] Address [address] [place] [address]. [place] [address] Care Team Providers Care Sed Middle School Teacher Name Role Phone Laureano Bennett MD Primary Care Provider [phone] Laureano Bennett MD Unavailable [phone] Encounter Details Date Type Department Care Team (Latest Contact Info) Description 04/11/2023 Travel Social History Tobacco Use Types Packs/Day Years Used Date Smoking Tobacco: Never Smokeless Tobacco: Never Alcohol Use Standard Drinks/Week Comments Not Currently 0 (1 standard drink = 0.6 oz pur e alcohol) PHQ-2 Answer Date Recorded PHQ-2 Score 3 01/04/2023 Adolescent Education Answer Date Record ed Getting School Help Needed Not on file 03/11 Food Insecurity Answer Date Recorded Within the past 12 months, d id you worry that your food would run out before you got money to buy more? No 03/10/2023 Within the past 12 months, d id the food you bought just not last and you didn? t have money to get more? No 03/10/2023 Housing Stability Answer Date Recorded Do you have housing? Yes 03/10/2023 Are you worried about losing your housing? No 03/10/2023 Financial Resource Strain Answer Date R ecorded Within the past 12 months, h ave you or your family members you live with been unable to get utilities (heat, electricity) when it was really needed? No 03/10/2023 Transportation Needs Answer Date Record ed Within the past 12 months, h as lack of transportation kept you from medical appointments, getting your medicines, non-medical meetings or appointments, work, or from getting things that you need? No 03/10/2023 Estimated Date of Delivery Comme nts Yes [...] st Contact Info) Description 07/22/2023 8:45 AM SPLITTER OPERATOR Appointment [facility] Medicine [place] [address] [address] [facility] [address] [place] [phone] Sheila Jones MD [address] [place], [place] [phone] 07/22/2023 9:15 AM SPLITTER OPERATOR Office Visit [facility] [place] [address] [address] [facility] [address] [place] [address] [phone] Sheila Jones MD [address] [place], [place] [address] 07/26/2023 8:00 AM SPLITTER OPERATOR Appointment [facility] [place] [address] [address] [facility] [address] [place] [address] [phone] Jennifer Boyer MD [address] [place], [place] [address] Rayshawn Nunez MD [address] [place], [place] [address] 07/26/2023 8:30 AM SPLITTER OPERATOR Office Visit [facility] [place] [address] [address] [facility] [address] [place] [address] [phone] Jennifer Boyer MD [address] [place], [place] [address] Rayshawn Nunez MD [address] [place] [address] 07/29/2023 8:00 AM SPLITTER OPERATOR Office Visit [address] [phone] Laureano Bennett MD [address] [place] [address] 409642 07/29/2023 11:45 AM SPLITTER OPERATOR Appointment [facility] Maternal Medicine [facility] [address] [facility] [address] [place] [phone] Jennifer Boyer MD [address] [place] [address] 07/29/2023 12:15 PM SPLITTER OPERATOR Office Visit [facility] Medicine [facility] [address] [facility] [address] [place] [address] [phone] Jennifer Boyer MD [address] [place] [address] 08/05/2023 8:00 AM SPLITTER OPERATOR Office Visit [address] [phone] Laureano Bennett MD [address] [place] [address] 08/23/2023 Hospital Encounter [facility] [address] [place] [phone] Laureano Bennett MD [address] [place] [address] 080852 documented as of this encounter Visit Diagnoses Not on filedocumented in this encounter Additional Health Concerns Assessment Noted Time PHQ-9 Depression Total Score: 12 023 9:01 AM CDT documented as of this encounter Care Teams Sed Middle School Teacher Relationship Specialty Start Date End Date Laureano Bennett MD [address] [place] [address] [phone] PCP - General Family Medicine 07/07/20 Laureano Bennett MD [address] [place] [address] 12373 Assigned PCP 08/14/22 documented as of this encounter
--- OUTSIDE RECORDS SUMMARY | 2023-07-21 14:01 | XMS_ITS | Encounter Summary ---
Author Name Unknown Organization [facility] Address [address] [place] [address]. [place] [address] Care Team Providers Care Corporate Administrator Name Role Phone Laureano Bennett MD Primary Care Provider [phone] Laureano Bennett MD Unavailable [phone] Unavailable [phone] Reason for Visit * Reason Onset Date Comments MyChart Communication 03/31/2023 Encounter Details Date Type Department Care Team ([facility] st Contact Info) Description 03/31/2023 MyC Medical Advice [address] [phone] Laureano Bennett MD [address] [place] [address] [phone] MyChart Communication Social History Tobacco Use Types Packs/Day Years [...] on file Sexual Orientation Not on file COVID-19 Exposure Response Date Recorded In the last 10 days, have yo u been in contact with someone who was confirmed or suspected to have Coronavirus/COVID-19? No / Unsure 03/10/2023 8:17 AM CDT documented as of this encounter Miscellaneous Notes * Telephone Encounter - Megha Berg RN - 04/06/2023 9:57 AM CDT Attempt # 1 Called # Telephone Information: Left a non detailed VM Megha Berg RN, BSN [facility] Triage * Telephone Encounter - Laureano Bennett MD - 04/04/2023 10:52 PM CDT With no reply to MyChart, please call the patient to see how she is doing and if she has felt fetalmovement lately. Okay to have her come in for visit in an administrative slot (or the second half of a 40-minute appointment that I have for a teenage well visit this afternoon or at noon-beginning of lunch) and can set up ultrasound if needed then. * Telephone Encounter - Megha Berg RN - 04/04/2023 3:05 PM CDT My chart message sent Routing to PCP for review too Megha Berg RN, BSN [facility] Triage documented in this encounter Plan of Treatment Upcoming Encounters Date Type Department Care Team (Late st Contact Info) Description 07/22/2023 8:45 AM POINT OF SALE ASSOCIATE Appointment [facility] [place] [address] [address] [facility] [address] [place] [phone] Sheila Jones MD [address] [place], [place] [phone] 07/22/2023 9:15 AM POINT OF SALE ASSOCIATE Office Visit [facility] Medicine [place] [address] [address] [facility] [address] [place] [address] [phone] Sheila Jones MD [address] [place], [place] [address] [phone] 07/26/2023 8:00 AM POINT OF SALE ASSOCIATE Appointment [facility] Medicine [place] [address] [address] [facility] [address] [place] [address] [phone] Jennifer Boyer MD [address] [place], [place] [phone] Rayshawn Nunez MD [address] [place], [place] [address] [phone] 07/26/2023 8:30 AM POINT OF SALE ASSOCIATE Office Visit [facility] [place] [address] [address] [facility] [address] [place] [address] [phone] Jennifer Boyer MD [address] [place], [place] [address] Rayshawn Nunez MD [address] [place] [address] 07/29/2023 8:00 AM POINT OF SALE ASSOCIATE Office Visit [address] [phone] Laureano Bennett MD [address] [place] [address] [phone] 07/29/2023 11:45 AM POINT OF SALE ASSOCIATE Appointment [facility] Maternal Medicine [facility] [address] [facility] [address] [place] [phone] Jennifer Boyer MD [address] [place] [address] 07/29/2023 12:15 PM POINT OF SALE ASSOCIATE Office Visit [facility] Medicine [facility] [address] [facility] [address] [place] [phone] Jennifer Boyer MD [address] [place] [address] 08/05/2023 8:00 AM POINT OF SALE ASSOCIATE Office Visit [address] [phone] Laureano Bennett MD [address] [place] [address] 195082 08/23/2023 Hospital Encounter [facility] [address] [place] [phone] Laureano Benentt MD [address] [place] [address] [phone] documented as of this encounter Visit Diagnoses Not on filedocumented in this encounter Additional Health Concerns Assessment Noted Time PHQ-9 Depression Total Score: 12 023 9:01 AM CDT documented as of this encounter Care Teams Corporate Administrator Relationship Specialty [place] [address] [place] [address] [phone] PCP - General Family Medicine 07/07/20 [place] [address] [place] [address] [phone] Assigned PCP 08/14/[address] [place] [address] Reference Librarian Dietitian, Registered 06/14/23 documented as of this encounter
--- OUTSIDE RECORDS SUMMARY | 2023-07-21 14:01 | XMS_ITS | Encounter Summary ---
Author Name Unknown Organization [facility] Address [address] [place] [address]. [place] [address] Care Team Providers Care Team Physician Name Role Phone Laureano Bennett MD Primary Care Provider [phone] Laureano Bennett MD Unavailable [phone] Encounter Details Date Type Department Care Team (Latest Contact Info) Description 05/17/2023 Travel Social History Tobacco Use Types Packs/Day [...] st Contact Info) Description 07/22/2023 8:45 AM COIL WINDER STRAP Appointment [facility] Maternal Medicine [place] [address] [address] [facility] [address] [place] [phone] Sheila Jones MD [address] [place], [place] [address] 07/22/2023 9:15 AM COIL WINDER STRAP Office Visit [facility]aternal Medicine [place] [address] [address] [facility] [address] [place] [phone] Sheila Jones MD [address] [place], [place] [address] 07/26/2023 8:00 AM COIL WINDER STRAP Appointment [facility] Maternal Medicine [place] [address] [address] [facility] [address] [place] [address] [phone] Jennifer Boyer MD [address] [place], [place] 3[address] Rayshawn Nunez MD [address] [place], [place] [address] 07/26/2023 8:30 AM COIL WINDER STRAP Office Visit [facility] Maternal Medicine [place] [address] [address] [facility] [address] [place] [address] [phone] Jennifer Boyer MD [address] [place], [place] [address] Rayshawn Nunez MD [address] [place] [address] 07/29/2023 8:00 AM COIL WINDER STRAP Office Visit [address] [phone] Laureano Bennett MD [address] [place] [address] 185322 07/29/2023 11:45 AM COIL WINDER STRAP Appointment [facility] Maternal Medicine [facility] [address] [facility] [address] [place] [phone] Jennifer Boyer MD [address] [place] [address] 07/29/2023 12:15 PM COIL WINDER STRAP Office Visit [facility] Maternal Medicine [facility] [address] [facility] [address] [place] [phone] Jennifer Boyer MD [address] [place] [address] 08/05/2023 8:00 AM COIL WINDER STRAP Office Visit [address] [phone] Laureano Bennett MD [address] [place] [address] 08/23/2023 Hospital Encounter [facility] [address] [place] [phone] Laureano Bennett MD [address] [place] [address] [phone] documented as of this encounter Visit Diagnoses Not on filedocumented in this encounter Additional Health Concerns Assessment Noted Time PHQ-9 Depression Total Score: 0 05/17/20 23 9:06 AM COIL WINDER STRAP documented as of this encounter Care Teams Team Physician Relationship Specialty [place] [address] [place] [address] PCP - General Family Medicine 07/07/20 [place] [address] [place] [address]76 Assigned PCP 08/14/22 documented as of this encounter
--- OUTSIDE RECORDS SUMMARY | 2023-07-21 14:01 | XMS_ITS | Encounter Summary ---
Author Name Unknown Organization [place] Address [address] [place] [address] Care Team Providers Care Pump Machine Operator Name Role Phone Laureano Bennett MD Primary Care Provider Laureano Bennett MD Unavailable [phone] Reason for Referral * Diagnostic Imaging Ultrasound (Routine) - Pending Review Specialty Diagnoses / Procedures Referred By Contac t Referred To Contact Radiology. Diagnoses Encounter for supervision of other normal in second trimester Procedures US OB > 14 Weeks Laureano Bennett MD [address] [place] [address] Referral ID Status Reason Start Date Expiration Date V isits Requested Visits Authorized [id number] Pending Review 03/10/2023 03/09/2024 1 1 Reason for Visit * Reason Comments Care Encounter Details Date Type Department Care Team (Late st Contact Info) Description 03/10/2023 8:20 AM CDT Office Visit [address] [phone] Laureano Bennett MD [address] [place] [address] [phone] Encounter for supervision of other normal in second trimester (Primary Dx) Social History Tobacco Use [...] AM CDT documented as of this encounter Last Filed Vital Signs Vital Sign Reading Time Taken Comments Blood Pressure 110/70 03/10/2023 8:28 AM CDT Pulse 89 03/10/2023 8:28 AM CDT Temperature - - Respiratory Rate 16 03/10/2023 8:28 AM CDT Oxygen Saturation 100% 03/10/2023 8:28 AM CDT Inhaled Oxygen Concentration - - Weight 76.2 kg (168 lb) 03/10/2023 8:28 AM CDT Height 174 cm (5' 8.5) 03/10/2023 8:28 AM CDT Body Mass Index 25.17 03/10/2023 8:28 AM CDT documented in this encounter Patient Instructions * Patient Instructions* Laureano Bennett MD - 03/10/2023 8:20 AM CDT Call [phone] to schedule ultrasound. documented in this encounter Progress Notes * Laureano Bennett MD - 03/10/2023 8:20 AM CDT Subjective Yu is a 27 year old, presenting for the following health issues: Care HPI S:Yu Renee is here today for a Visit at 16w2d gestation. Concerns today: hand foot and mouth with fever for 3 days bleeding: no Cramping/Contractions:No Leaking of fluid: No Baby moving: Yes Edema : :No, concerns of varicose vein on back of leg O: See OB Vitals ASSESSMENT:/PLAN: Labor warnings and kick counts discussed. Follow up in 4 weeks. documented in this encounter Plan of Treatment Upcoming Encounters Date Type Department Care Team (Late st Contact Info) Description 07/22/2023 8:45 AM MIDDLE SCHOOL TEACHER Appointment [facility] Maternal Medicine [place] [address] [place] [phone] Sheila Jones MD [address] [place] [address] 07/22/2023 9:15 AM MIDDLE SCHOOL TEACHER Office Visit [facility] Maternal Medicine [facility] [address] [place] [phone] Sheila Jones MD [address] [place] [address] 07/26/2023 8:00 AM MIDDLE SCHOOL TEACHER Appointment [facility] Maternal Medicine [facility] [address] [place] [phone] Jennifer Boyer MD [address] [place] [address] Rayshawn Nunez MD [address] [place] [address] 07/26/2023 8:30 AM MIDDLE SCHOOL TEACHER Office Visit [facility] Medicine [place] [address] [place] [phone] Jennifer Boyer MD [address] [place], [place] [address] Rayshawn Nunez MD [address] [place], [place] [phone] 07/29/2023 8:00 AM MIDDLE SCHOOL TEACHER Office Visit [address] [phone] Laureano Bennett MD [address] [place] [address] 07/29/2023 11:45 AM MIDDLE SCHOOL TEACHER Appointment [facility] Medicine [place] [address] [place] [phone] Jennifer Boyer MD [address] [place] [address] 07/29/2023 12:15 PM MIDDLE SCHOOL TEACHER Office Visit [facility] Medicine [place] [address] [place] [phone] Jennifer Boyer MD [address] [place] [address] 08/05/2023 8:00 AM MIDDLE SCHOOL TEACHER Office Visit [facility] [address] [place] [phone] Laureano Bennett MD [address] [place] [address] [phone] 08/23/[address] [facility] [address] [place] [phone] Laureano Bennett MD [address] [place] [address] [phone] documented as of this encounter Procedures Procedure Name Priority Date/Time Associated Diagnosis Comments GLUCOSE ALBUMIN OB URINE Routine 03/10/2023 8:19 AM CDT documented in this encounter Results * US OB > 14 Weeks (04/11/2023 4:14 PM CDT) Anatomical Region Laterality Modality Abdomen/Pelvis Ultrasound Narrative 04/11/2023 4:23 PM CDT Table formatting from the original result was not included. [facility] ULTRASOUND - OB > 14 Weeks Complete - Transabdominal Referring Provider: Laureano Bennett MD INDICATIONS FOR ULTRASOUND: OB History: 2nd/3rd trimester loss (demise, stillborn) Present Conditions: Initial Survey (18-26 weeks) CLINICAL INFORMATION LMP: 11/16/2022 ??sure EDC: 08/23/2023 ??EGA: 20w 6d [place] Gestation. presentation: Breech Placenta location: Anterior, no previa, > 2 cm from internal os Grade: I ?? Cord: 3 Vessel Cord BPD 4.76 cm 20w3d HC 18.01 cm 20w3d AC 15.17 cm 20w3d FL 3.38 cm 20w4d HL 3.24 cm 20w6d Cerebellum 2.20 cm 20w4d CM 3.54 mm ?? Lat Vent 5.88 mm ?? Amniotic Fluid 3.57 cm MVP ?? Heart Rate 153 bpm ?? EFW (lbs/oz) ?13ozs ?? EFW (g) 357 g ?? EDC: 08/26/2023 EGA:20w3d ??correspond SURVEY Visualized with normal appearance: Lateral Ventricle, Choroid Plexus, Cisterna Magna, Cerebellum, Midline Falx, Cavum Septum Pellucidum, Face, Nose/Lips , Profile, 4 Chamber Heart, RVOT, LVOT, Kidneys, Stomach, Diaphragm, Abdominal Cord Insertion, Bladder, Arms, Legs, and Gender: Female Not visualized on today? s ultrasound: Spine Abnormal appearance: MATERNAL ANATOMY Cervix: The cervix appears long and closed. Cervical Length: 5.50cm Right Ovary: Visualized Left Ovary: Visualized *Other Findings: Technique:Transabdominal Imaging performed Complete obstetrical ultrasound using realtime transabdominal scanning No gross anomalies observed; ??corresponding menstrual and sonographic dates Maternal Uterus appears normal Maternal ovaries were visualized Normal amniotic fluid Placenta location anterior anomalies may be present but not dectected. Note: federal law requires the release of results to patients even prior to the ordering provider viewing the result. Your provider will notify you, generally within 24 hours, of any critical results. If follow up is necessary, you will be notified at that time. Normal results, and abnormal but non-urgent results, will generally be addressed within 48-[address] Lynne Rubi, DO ?? Obstetrics and Gynecology [facility] Laureano Bennett MD [facility] US ORDERABLES * Glucose and albumin, OB urine (03/10/2023 8:19 AM CDT) Protein Albumin Urine Negative Negative mg/dL 03/10/2023 9:27 AM CDT [facility] Glucose Urine Negative Negative mg/dL 03/10/2023 9:27 AM CDT [facility] Urine MID-STREAM URINE SPECIMEN / Unknown Non-blood Collection / Unknown 03/10/2023 8:19 AM CDT 03/10/2023 9:25 AM CDT Laureano Bennett MD LAB - URINE ORDERABL ES [facility] [address] [place] [address] Lab (no room number, 1st floor of clinic) [place] [address], [place] [phone] documented in this encounter Visit Diagnoses Diagnosis Encounter for supervision of other normal in second trimester- Primary Encounter for supervision of other normal in second trimester documented in this encounter Additional Health Concerns Assessment Noted Time PHQ-9 Depression Total Score: 12 023 9:01 AM CDT documented as of this encounter Care Teams Pump Machine Operator Relationship Specialty Start Date End Date Laureano Bennett MD [address] [place] [address] PCP - General Family Medicine 07/07/20 Laureano Bennett MD [address] [place] [address] Assigned PCP 08/14/22 documented as of this encounter
--- OUTSIDE RECORDS SUMMARY | 2023-07-21 14:01 | XMS_ITS | Encounter Summary ---
Author Name Unknown Organization [place] Address [address] [facility] [place] [address] Care Team Providers Care Supervisor Painting Name Role Phone Laureano Bennett MD Primary Care Provider [phone] Laureano Bennett MD Unavailable [phone] Encounter Details Date Type Department Care Team (Late st Contact Info) Description 05/31/2023 8:00 AM CARDIOLOGY CLINICAL NURSE SPECIALIST Lab [facility] [address] [place] [phone] Elevated glucose Social History Tobacco Use Types Packs/Day Years [...] st Contact Info) Description 07/22/2023 8:45 AM CARDIOLOGY CLINICAL NURSE SPECIALIST Appointment [facility] Maternal Medicine [place] [address] [place] [phone] Sheila Jones MD [address] [place], [place] [phone] 07/22/2023 9:15 AM CARDIOLOGY CLINICAL NURSE SPECIALIST Office Visit [facility] Maternal Medicine [place] [address] [place] [phone] Sheila Jones MD [address] [place], [place] [phone] 07/26/2023 8:00 AM CARDIOLOGY CLINICAL NURSE SPECIALIST Appointment [facility] Maternal Medicine [place] [address] [place] [phone] Jennifer Boyer MD [address] [place], [place] [address] Rayshawn Nunez MD [address] [place], [place] [phone] 07/26/2023 8:30 AM CARDIOLOGY CLINICAL NURSE SPECIALIST Office Visit [facility] Maternal Medicine [place] [address] [place] [phone] Jennifer Boyer MD [address] [place] [address] Rayshawn Nunez MD [address] [place] [address] 07/29/2023 8:00 AM CARDIOLOGY CLINICAL NURSE SPECIALIST Office Visit [address] [phone] Laureano Bennett MD [address] [place] [address] [phone] 07/29/2023 11:45 AM CARDIOLOGY CLINICAL NURSE SPECIALIST Appointment [facility] Maternal Medicine [facility] [address] [facility] [address] [place] [phone] Jennifer Boyer MD [address] [place] [address] 07/29/2023 12:15 PM CARDIOLOGY CLINICAL NURSE SPECIALIST Office Visit [facility] Maternal Medicine [facility] [address] [facility] [address] [place] [phone] Jennifer Boyer MD [address] [place] [address] 08/05/2023 8:00 AM CARDIOLOGY CLINICAL NURSE SPECIALIST Office Visit [address] [phone] Laureano Bennett MD [address] [place] [address] [phone] 08/23/2023 Hospital Encounter [facility] [address] [place] [address] Laureano Bennett MD [address] [place] [phone] documented as of this encounter Procedures Procedure Name Priority Date/Time Associated Diagnosis Comments GESTATIONAL GLUCOSE TOLERANCE TESTING, 3 HOUR Routine 05/31/2023 11:21 AM CARDIOLOGY CLINICAL NURSE SPECIALIST Elevated glucose GESTATIONAL GLUCOSE TOLERANCE TESTING, 2 HOUR Routine 05/31/2023 10:14 AM CARDIOLOGY CLINICAL NURSE SPECIALIST Elevated glucose GESTATIONAL GLUCOSE TOLERANCE TESTING, 1 HOUR Routine 05/31/2023 9:17 AM CARDIOLOGY CLINICAL NURSE SPECIALIST Elevated glucose GESTATIONAL GLUCOSE TOLERANCE TESTING, FASTING Routine 05/31/2023 8:00 AM CARDIOLOGY CLINICAL NURSE SPECIALIST Elevated glucose GESTATIONAL GLUCOSE TOLERANCE TESTING, 3 HOUR Routine 05/31/2023 8:00 AM CARDIOLOGY CLINICAL NURSE SPECIALIST Elevated glucose documented in this encounter Results * Gestational Glucose Tolerance Testing, 3 Hour (05/31/2023 11:21 AM CARDIOLOGY CLINICAL NURSE SPECIALIST) Gestational GTT 3 Hr Post Dose 110 60 - 139 mg/dL 06/02/2023 12:14 AM CARDIOLOGY CLINICAL NURSE SPECIALIST [facility] Blood BLOOD SPECIMEN / Unknown Venipuncture / Unknown 05/31/2023 11:21 AM CARDIOLOGY CLINICAL NURSE SPECIALIST 05/31/2023 11:21 AM CARDIOLOGY CLINICAL NURSE SPECIALIST Narrative [facility] - 06/02/2023 12:14 AM CARDIOLOGY CLINICAL NURSE SPECIALIST Blood glucose levels collected at fasting, 1 hour, 2 hours and 3 hours after ingestion of 100g glucose during . The diagnosis of gestational diabetes mellitus is made when 2 or more of the glucose values listed below are met or exceeded: Fasting ? 95 mg/dL 1 hour ?180 mg/dL 2 hour ?155 mg/dL 3 hour ?140 mg/dL Laureano Bennett MD LAB - BLOOD ORDERABL ES [facility] [address] [facility], [address] [place] [address], [facility] [phone] * (ABNORMAL) Gestational Glucose Tolerance Testing, 2 Hour (05/31/2023 10:14 AM CARDIOLOGY CLINICAL NURSE SPECIALIST) [facility] Gestational GTT 2 Hr Post Dose 218(H) 60 - 154 mg/dL 06/01/2023 2:26 PM CARDIOLOGY CLINICAL NURSE SPECIALIST [facility] Blood BLOOD SPECIMEN / Unknown Venipuncture / Unknown 05/31/2023 10:14 AM CARDIOLOGY CLINICAL NURSE SPECIALIST 05/31/2023 10:14 AM CARDIOLOGY CLINICAL NURSE SPECIALIST Laureano Bennett MD LAB - BLOOD ORDERABL ES [facility] [address] [facility] [place] [address], [facility] [phone] * (ABNORMAL) Gestational Glucose Tolerance Testing, 1 Hour (05/31/2023 9:17 AM CARDIOLOGY CLINICAL NURSE SPECIALIST) [facility] Gestational GTT 1 Hr Post Dose 192(H) 60 - 179 mg/dL 05/31/2023 5:31 PM CARDIOLOGY CLINICAL NURSE SPECIALIST [facility] Blood BLOOD SPECIMEN / Unknown Venipuncture / Unknown 05/31/2023 9:17 AM CARDIOLOGY CLINICAL NURSE SPECIALIST 05/31/2023 9:17 AM CARDIOLOGY CLINICAL NURSE SPECIALIST Laureano Bennett MD LAB - BLOOD ORDERABL ES [facility] [address] [facility], [address] [place] [address], [facility] [phone] * (ABNORMAL) Gestational Glucose Tolerance Testing, Fasting (05/31/2023 8:00 AM CARDIOLOGY CLINICAL NURSE SPECIALIST) [facility] Gestational GTT Fasting 123(H) 60 - 94 mg/dL 05/31/2023 7:28 PM CARDIOLOGY CLINICAL NURSE SPECIALIST [facility] Blood BLOOD SPECIMEN / Unknown Venipuncture / Unknown 05/31/2023 8:00 AM CARDIOLOGY CLINICAL NURSE SPECIALIST 05/31/2023 8:06 AM CARDIOLOGY CLINICAL NURSE SPECIALIST Laureano Bennett MD LAB - BLOOD ORDERABL ES [facility] [address] [facility] [address] [facility], [address] [place] [address], [facility] [phone] documented in this encounter Visit Diagnoses Diagnosis Elevated glucose Other abnormal glucose documented in this encounter Additional Health Concerns Assessment Noted Time PHQ-9 Depression Total Score: 0 05/17/20 9:06 AM CARDIOLOGY CLINICAL NURSE SPECIALIST documented as of this encounter Care Teams Supervisor Painting Relationship Specialty Start Date End Date Laureano Bennett MD [address] [place] [address] [phone] PCP - General Family Medicine 07/07/20 Laureano Bennett MD [address] [place] [address] [phone] Assigned PCP 08/14/22 documented as of this encounter
--- OUTSIDE RECORDS SUMMARY | 2023-07-21 14:01 | XMS_ITS | Encounter Summary ---
Author Name Unknown Organization [place] Address [address] [place] [address] Care Team Providers Care Vice President Industrial Relations Name Role Phone Laureano Bennett MD Primary Care Provider [phone] Laureano Bennett MD Unavailable [phone] Encounter Details Date Type Department Care Team (Late st Contact Info) Description 02/10/2023 MyC Medical Advice [address] [phone] Laureano Bennett MD [address] [place] [address] Social History Tobacco Use Types Packs/Day Years Used Date Smoking Tobacco: Never Smokeless Tobacco: Never Alcohol Use Standard Drinks/Week Comments Not Currently 0 (1 standard drink = 0.6 oz pur e alcohol) PHQ-2 Answer Date Recorded PHQ-2 Score 3 01/04/2023 Estimated Date of Delivery Comme nts Yes [...] suspected to have Coronavirus/COVID-19? No / Unsure 02/10/2023 7:12 AM CDT documented as of this encounter Miscellaneous Notes * Telephone Encounter - Jacqueline Cheung RN - 02/11/2023 11:13 AM CDT Please advise. Jacqueline Cheung RN documented in this encounter Plan of Treatment Upcoming Encounters Date Type Department Care Team (Late st Contact Info) Description 07/22/2023 8:45 AM MANUFACTURING TEST TECHNICIAN Appointment [facility] Maternal Medicine [place] [address] [place] [phone] Sheila Jones MD [address] [place], [place] [address] 07/22/2023 9:15 AM MANUFACTURING TEST TECHNICIAN Office Visit [facility] Maternal Medicine [place] [address] [facility] [address] [place] [phone] Sheila Jones MD [address] [place], [place] [phone] 07/26/2023 8:00 AM MANUFACTURING TEST TECHNICIAN Appointment [facility] Maternal Medicine [place] [address] [facility] [address] [place] [phone] Jennifer Boyer MD [address] [place], [place] [phone] Rayshawn Nunez MD [address] [place], [place] [phone] 07/26/2023 8:30 AM MANUFACTURING TEST TECHNICIAN Office Visit [facility] Maternal Medicine [place] [address] [facility] [address] [place] [phone] Jennifer Boyer MD [address] [place], [place] [phone] Rayshawn Nunez MD [address] [place] [address] 07/29/2023 8:00 AM MANUFACTURING TEST TECHNICIAN Office Visit [address] [phone] Laureano Bennett MD [address] [place] [address] [phone] 07/29/2023 11:45 AM MANUFACTURING TEST TECHNICIAN Appointment [facility] Maternal Medicine [facility] [address] [facility] [address] [place] [phone] Jennifer Boyer MD [address] [place] [address] 07/29/2023 12:15 PM MANUFACTURING TEST TECHNICIAN Office Visit [facility] Maternal Medicine [facility] [address] [facility] [address] [place] [phone] Jennifer Boyer MD [address] [place] [address] 08/05/2023 8:00 AM MANUFACTURING TEST TECHNICIAN Office Visit [address] [phone] Laureano Bennett MD [address] [place] [address] [phone] 08/23/2023 Hospital Encounter [facility] [address] [place] [phone] Laureano Bennett MD [address] [place] [address] [phone] documented as of this encounter Visit Diagnoses Not on filedocumented in this encounter Additional Health Concerns Assessment Noted Time PHQ-9 Depression Total Score: 12 023 9:01 AM CDT documented as of this encounter Care Teams Vice President Industrial Relations Relationship Specialty Start Date End Date Laureano Bennett MD [address] [place] [address] PCP - General Family Medicine 07/07/20 [place] [address] [place] [phone] Assigned PCP 08/14/22 documented as of this encounter
--- OUTSIDE RECORDS SUMMARY | 2023-07-21 14:01 | XMS_ITS | Encounter Summary ---
Author Name Unknown Organization [place] Address [address] [place] [address] Care Team Providers Care Special Order Jeweler Name Role Phone Laureano Bennett MD Primary Care Provider [phone] Laureano Bennett MD Unavailable [phone] Reason for Visit * Reason Comments Care Encounter Details Date Type Department Care Team ([facility] st Contact Info) Description 04/08/2023 8:00 AM CDT Office Visit [address] [phone] Laureano Bennett MD [address] [place] [address] [phone] Encounter for supervision of other normal in [...] Sign Reading Time Taken Comments Blood Pressure 118/72 04/08/2023 8:02 AM CDT Pulse 95 04/08/2023 8:02 AM CDT Temperature 36.1 ??C (97 ??F) 04/08/2023 8:02 AM CDT Respiratory Rate 16 04/08/2023 8:02 AM CDT Oxygen Saturation - - Inhaled Oxygen Concentration - - Weight 77.5 kg (170 lb 12.8 oz) 04/08/2023 8:02 AM CDT Height 174 cm (5' 8.5) 04/08/2023 8:02 AM CDT Body Mass Index 25.59 04/08/2023 8:02 AM CDT documented in this encounter Progress Notes * Laureano Bennett MD - 04/08/2023 8:00 AM CDT S:Yu Renee is here today for a Visit at 20w3d gestation. Concerns today: was concerned with baby movement but has increased Bleeding: No Cramping/Contractions:No Leaking of fluid: No Baby moving: Yes O: See OB Vitals ASSESSMENT:/PLAN: Doing well - u/s is coming up (was rescheduled) Return in 4 weeks with glucose screen documented in this encounter Plan of Treatment Upcoming Encounters Date Type Department Care Team (Late st Contact Info) Description 07/22/2023 8:45 AM HUB INVENTORY SPECIALIST Appointment [facility] Medicine [place] [address] [place] [address] [phone] Sheila Jones MD [address] [place], [place] 207819 [phone] 07/22/2023 9:15 AM HUB INVENTORY SPECIALIST Office Visit [facility] [place] [address] [place] [address] [phone] Sheila Jones MD [address] [place], [place] 861319 [phone] 07/26/2023 8:00 AM HUB INVENTORY SPECIALIST Appointment [facility] [place] [address] [place] [phone] Jennifer Boyer MD [address] [place], [place] [phone] Rayshawn Nunez MD [address] [place], [place] 933053 [phone] 07/26/2023 8:30 AM HUB INVENTORY SPECIALIST Office Visit [facility] [place] [address] [place] [address] [phone] Jennifer Boyer MD [address] [place], [place] 888072 [phone] Rayshawn Nunez MD [address] [place], [place] 627370 [phone] 07/29/2023 8:00 AM HUB INVENTORY SPECIALIST Office Visit [address] [phone] Laureano Bennett MD [address] [place] [address] [phone] 07/29/2023 11:45 AM HUB INVENTORY SPECIALIST Appointment [facility] M[facility] Medicine [facility] [address] [facility] [address] [place] [address] [phone] Jennifer Boyer MD [address] [place] [address] 07/29/2023 12:15 PM HUB INVENTORY SPECIALIST Office Visit [facility] [address] [phone] Jennifer Boyer MD [address] [place] [address] 08/05/2023 8:00 AM HUB INVENTORY SPECIALIST Office Visit [address] [phone] Laureano Bennett MD [address] [place] [address] [phone] 08/23/2023 Hospital Encounter [facility] [address] [place] [phone] Laureano Bennett MD [address] [place] [address] [phone] documented as of this encounter Procedures Procedure Name Priority Date/Time Associated Diagnosis Comments GLUCOSE ALBUMIN OB URINE Routine 04/08/2023 7:58 AM CDT Encounter for supervision of other normal in second trimester documented in this encounter Results * Glucose and albumin, OB urine (04/08/2023 7:58 AM CDT) Protein Albumin Urine Negative Negative mg/dL 04/08/2023 8:50 AM CDT [facility] Glucose Urine Negative Negative mg/dL 04/08/2023 8:50 AM CDT [facility] Urine URINE SPECIMEN / Unknown Non-blood Collection / Unknown 04/08/2023 7:58 AM CDT 04/08/2023 8:47 AM CDT Laureano Bennett MD LAB - URINE ORDERABL ES [facility] [address] [place] [address] Lab (no room number, 1st floor of clinic) [place] [phone], [facility] [phone] documented in this encounter Visit Diagnoses Diagnosis Encounter for supervision of other normal in second trimester- Primary documented in this encounter Additional Health Concerns Assessment Noted Time PHQ-9 Depression Total Score: 12 023 9:01 AM CDT documented as of this encounter Care Teams Special Order Jeweler Relationship Specialty Start Date End Date Laureano Bennett MD [address] [place] [address] [phone] PCP - General Family Medicine 07/07/20 Laureano Bennett MD [address] [place] [address] Assigned PCP 08/14/22 documented as of this encounter
--- OUTSIDE RECORDS SUMMARY | 2023-07-21 14:01 | XMS_ITS | Encounter Summary ---
Author Name Unknown Organization [place] Address [address] [facility] [place] [address] Care Team Providers Care Client Experience Manager Name Role Phone Laureano Bennett MD Primary Care Provider [phone] Laureano Bennett MD Unavailable [phone] Encounter Details Date Type Department Care Team (Latest Contact Info) Description 02/10/2023 Travel Social History Tobacco Use Types Packs/Day [...] AM CDT documented as of this encounter Plan of Treatment Upcoming Encounters Date Type Department Care Team (Late st Contact Info) Description 07/22/2023 8:45 AM OFFICE COPY SELECTOR Appointment [facility] [place] [address] [facility] [address] [place] [address] Sheila Jones MD [address] [place] [address] 07/22/2023 9:15 AM OFFICE COPY SELECTOR Office Visit [facility] Maternal Medicine [place] [address] [place] [phone] Sheila Jones MD [address] [place] [address] 07/26/2023 8:00 AM OFFICE COPY SELECTOR Appointment [facility] Medicine [place] [address] [facility] [address] [place] [phone] Jennifer Boyer MD [address] [place], [place] 319734 Rayshawn Nunez MD [address] [place], [place] 648544 07/26/2023 8:30 AM OFFICE COPY SELECTOR Office [facility] Medicine [place] [address] [facility] [address] [place] [phone] Jennifer Boyer MD [address] [place], [place] 435144 Rayshawn Nunez MD [address] [place], [place] 115794 07/29/2023 8:00 AM OFFICE COPY SELECTOR Office Visit [address] [place] [phone] Laureano Bennett MD [address] [place] [address] 024522 07/29/2023 11:45 AM OFFICE COPY SELECTOR Appointment [facility] Medicine [place] [address] [facility] [address] [place] [phone] Jennifer Boyer MD [address] [place] [address] 07/29/2023 12:15 PM OFFICE COPY SELECTOR Office Visit [facility] [place] [address] [facility] [address] [place] [phone] Jennifer Boyer MD [address] [place] [address] 08/05/2023 8:00 AM OFFICE COPY SELECTOR Office Visit [address] [phone] Laureano Bennett MD [address] [place] [address] [phone] 08/23/2023 Hospital Encounter [facility] [address] [place] [address] Laureano Bennett MD [address] [place] [address] [phone] documented as of this encounter Visit Diagnoses Not on filedocumented in this encounter Additional Health Concerns Assessment Noted Time PHQ-9 Depression Total Score: 12 023 9:01 AM CDT documented as of this encounter Care Teams Client Experience Manager Relationship Specialty Start Date End Date Laureano Bennett MD [address] [place] [address] [phone] PCP - General Family Medicine 07/07/20 Laureano Bennett MD [address] [place] [address] Assigned PCP 08/14/22 documented as of this encounter
--- OUTSIDE RECORDS SUMMARY | 2023-07-21 14:01 | XMS_ITS | Encounter Summary ---
Author Name Unknown Organization [place] Address [address] [place] [address]. [place] [address] Care Team Providers Care Bead Stringer Name Role Phone Laureano Bennett MD Primary Care Provider [phone] Laureano Bennett MD Unavailable [phone] Encounter Details Date Type Department Care Team (Latest Contact Info) Description 04/08/2023 Travel Social History Tobacco Use Types Packs/Day [...] st Contact Info) Description 07/22/2023 8:45 AM COPPERSMITH APPRENTICE Appointment [facility] Maternal Medicine [place] [address] [facility] [address] [place] [phone] Sheila Jones MD [address] [place], [place] [phone] 07/22/2023 9:15 AM COPPERSMITH APPRENTICE Office Visit [facility] [place] [address] [place] [phone] Sheila Jones MD [address] [place], [place] [phone] 07/26/2023 8:00 AM COPPERSMITH APPRENTICE Appointment [facility] M[facility] Medicine [place] [address] [place] [address] [phone] Jennifer Boyer MD [address] [place], [place] 654264 Rayshawn Nunez MD [address] [place], [place] [address]84 07/26/2023 8:30 AM COPPERSMITH APPRENTICE Office Visit [facility] Maternal Medicine [place] [address] [place] [address] [phone] Jennifer Boyer MD [address] [place] [address] Rayshawn Nunez MD [address] [place] [address] 07/29/2023 8:00 AM COPPERSMITH APPRENTICE Office Visit [address] [phone] Laureano Bennett MD [address] [place] [address] [phone] 07/29/2023 11:45 AM COPPERSMITH APPRENTICE Appointment [facility] Maternal Medicine [facility] [address] [facility] [address] [place] [phone] Jennifer Boyer MD [address] [place] [address] 07/29/2023 12:15 PM COPPERSMITH APPRENTICE Office Visit [facility] Maternal Medicine [facility] [address] [facility] [address] [place] [address] Jennifer Boyer MD [address] [place] [address] 08/05/2023 8:00 AM COPPERSMITH APPRENTICE Office Visit [address] [phone] Laureano Bennett MD [address] [place] [address] [phone] 08/23/2023 Hospital Encounter [facility] [address] [place] [phone] Laureano Bennett MD [address] [place], [place] 328512 documented as of this encounter Visit Diagnoses Not on filedocumented in this encounter Additional Health Concerns Assessment Noted Time PHQ-9 Depression Total Score: 12 023 9:01 AM CDT documented as of this encounter Care Teams Bead Stringer Relationship Specialty [place] [address] [place] [address]38 PCP - General Family Medicine 07/07/20 Laureano Bennett MD [address] [place] [address] [phone] Assigned PCP 08/14/22 documented as of this encounter
--- OUTSIDE RECORDS SUMMARY | 2023-07-21 14:01 | XMS_ITS | Encounter Summary ---
Author Name Unknown Organization [place] Address [address] [place] [address] Care Team Providers Care Dispatcher Tow Truck Name Role Phone Laureano Bennett MD Primary Care Provider Laureano Bennett MD Unavailable [phone] Unavailable [phone] Reason for Visit * Reason Onset Date Comments MyChart Communication 02/20/2023 Encounter Details Date Type Department Care Team ([facility] st Contact Info) Description 02/20/2023 MyC Medical Advice [address] [phone] Laureano Bennett MD [address] [place] [address] [phone] MyChart Communication Social History Tobacco Use Types [...] Miscellaneous Notes * Telephone Encounter - Megha Berg, RN - 02/23/2023 9:34 AM CDT My chart message sent Awaiting reply Megha Berg RN, BSN [facility] Triage documented in this encounter Plan of Treatment Upcoming Encounters Date Type Department Care Team (Late st Contact Info) Description 07/22/2023 8:45 AM HEAD REFRIGERATION ENGINEER Appointment [facility] M[facility] Medicine [place] [address] [facility] [address] [place] [phone] Sheila Jones MD [address] [place], [place] [address]184 07/22/2023 9:15 AM HEAD REFRIGERATION ENGINEER Office Visit [facility] Maternal Medicine [place] [address] [place] [phone] Sheila Jones MD [address] [place], [place] 8[address]694 07/26/2023 8:00 AM HEAD REFRIGERATION ENGINEER Appointment [facility] Maternal Medicine [place] [address] [place] [phone] Jennifer Boyer MD [address] [place], [place] 931414 Rayshawn Nunez MD [address] [place], [place] [address]684 07/26/2023 8:30 AM HEAD REFRIGERATION ENGINEER Office Visit [facility] Maternal Medicine [place] [address] [place] [phone] Jennifer Boyer MD [address] [place] [address] Rayshawn Nunez MD [address] [place] [address] 07/29/2023 8:00 AM HEAD REFRIGERATION ENGINEER Office Visit [address] [phone] Laureano Bennett MD [address] [place] [address] [phone] 07/29/2023 11:45 AM HEAD REFRIGERATION ENGINEER Appointment [facility] Maternal Medicine [facility] [address] [facility] [address] [place] [phone] Jennifer Boyer MD [address] [place] [address] 07/29/2023 12:15 PM HEAD REFRIGERATION ENGINEER Office Visit [facility] Maternal Medicine [facility] [address] [facility] [address] [place] [address] Jennifer Boyer MD [address] [place] [address] 08/05/2023 8:00 AM HEAD REFRIGERATION ENGINEER Office Visit [address] [phone] Laureano Bennett MD [address] [place] [address] [phone] 08/23/2023 Hospital Encounter [facility] [address] [place] [address] [place] [address] [place] [address] documented as of this encounter Visit Diagnoses Not on filedocumented in this encounter Additional Health Concerns Assessment Noted Time PHQ-9 Depression Total Score: 12 023 9:01 AM CDT documented as of this encounter Care Teams Dispatcher Tow Truck Relationship Specialty Start Date End Date Laureano Bennett MD [address] [place] [phone] PCP - General Family Medicine 07/07/20 Laureano Bennett MD [address] [place] [address] Assigned PCP 08/14/[address] [place] [address] [place] [address] Bookkeeper Assistant Dietitian, Registered 06/14/23 documented as of this encounter
--- OUTSIDE RECORDS SUMMARY | 2023-07-21 14:01 | XMS_ITS | Encounter Summary ---
Author Name Unknown Organization [place] Address [address] [place] [address]. [place] [address] Care Team Providers Care Branch Associate Teller Name Role Phone Laureano Bennett MD Primary Care Provider [phone] Laureano Bennett MD Unavailable [phone] Encounter Details Date Type Department Care Team (Latest Contact Info) Description 04/03/2023 Travel Social History Tobacco Use Types Packs/Day [...] st Contact Info) Description 07/22/2023 8:45 AM MASTER AT ARMS Appointment [facility] Maternal Medicine [place] [address] [facility] [address] [place] [address] [phone] Sheila Jones MD [address] [place], [place] [phone] 07/22/2023 9:15 AM MASTER AT ARMS Office Visit [facility] Maternal Medicine [place] [address] [place] [address] [phone] Sheila Jones MD [address] [place], [place] [phone] 07/26/2023 8:00 AM MASTER AT ARMS Appointment [facility] Maternal Medicine [place] [address] [place] [address] [phone] Jennifer Boyer MD [address] [place], [place] 8539[address] Rayshawn Nunez MD [address] [place], [place] [address]87[address] 07/26/2023 8:30 AM MASTER AT ARMS Office Visit [facility] Maternal Medicine [place] [address] [place] [address] [phone] Jennifer Boyer MD [address] [place] [address] Rayshawn Nunez MD [address] [place] [address] 07/29/2023 8:00 AM MASTER AT ARMS Office Visit [address] [phone] Laureano Bennett MD [address] [place] [address] [phone] 07/29/2023 11:45 AM MASTER AT ARMS Appointment [facility] Maternal Medicine [facility] [address] [facility] [address] [place] [phone] Jennifer Boyer MD [address] [place] [address] 07/29/2023 12:15 PM MASTER AT ARMS Office Visit [facility] Maternal Medicine [facility] [address] [facility] [address] [place] [address] Jennifer Boyer MD [address] [place] [address] 08/05/2023 8:00 AM MASTER AT ARMS Office Visit [address] [phone] Laureano Bennett MD [address] [place] [address] [phone] 08/23/2023 Hospital Encounter [facility] [address] [place] [phone] Laureano Bennett MD [address] [place], [place] [phone] documented as of this encounter Visit Diagnoses Not on filedocumented in this encounter Additional Health Concerns Assessment Noted Time PHQ-9 Depression Total Score: 12 023 9:01 AM CDT documented as of this encounter Care Teams Branch Associate Teller Relationship Specialty [place] [address] [place] [phone] PCP - General Family Medicine 07/07/20 Laureano Bennett MD [address] [place] [address]21 Assigned PCP 08/14/22 documented as of this encounter
--- OUTSIDE RECORDS SUMMARY | 2023-07-21 14:01 | XMS_ITS | Encounter Summary ---
Author Name Unknown Organization [place] Address [address] [place] [address] Care Team Providers Care Assessment Services Manager Name Role Phone Renee Bennett MD Primary Care Provider [phone] Renee Bennett MD Unavailable [phone] Reason for Visit * Reason Comments Care Encounter Details Date Type Department Care Team (Late st Contact Info) Description 05/17/2023 9:20 AM AOC DIRECTOR COMBAT PLANS OFFICER Office Visit [address] [phone] Renee Bennett MD [address] [place] [address] Encounter for supervision of other normal in second trimester (Primary Dx); Elevated glucose Social History Tobacco Use Types [...] Sign Reading Time Taken Comments Blood Pressure 118/60 05/17/2023 9:13 AM AOC DIRECTOR COMBAT PLANS OFFICER Pulse 96 05/17/2023 9:13 AM AOC DIRECTOR COMBAT PLANS OFFICER Temperature 36.1 ??C (96.9 ??F) 05/17/2023 9:13 AM CS T Respiratory Rate 16 05/17/2023 9:13 AM AOC DIRECTOR COMBAT PLANS OFFICER Oxygen Saturation 98% 05/17/2023 9:13 AM AOC DIRECTOR COMBAT PLANS OFFICER Inhaled Oxygen Concentration - - Weight 78.5 kg (173 lb) 05/17/2023 9:13 AM AOC DIRECTOR COMBAT PLANS OFFICER Height 174 cm (5' 8.5) 05/17/2023 9:13 AM AOC DIRECTOR COMBAT PLANS OFFICER Body Mass Index 25.92 05/17/2023 9:13 AM AOC DIRECTOR COMBAT PLANS OFFICER documented in this encounter Progress Notes * Renee Bennett MD - 05/17/2023 9:20 AM CST S:Yu Renee is here today for a Visit at 26w0d gestation. Concerns today: No-questions about labor and delivery; she is wondering about vitamin levels and other labs. Takes PNV and vit D Bleeding: No Cramping/Contractions:Yes 1-2 mo[place] Leaking of fluid: No Baby moving: Yes O: See OB Vitals Results for orders placed or performed in visit on 05/17/23 Glucose and albumin, OB urine Status: Abnormal Result Value Ref Range Protein Albumin Urine Trace (A) Negative mg/dL Glucose Urine Negative Negative mg/dL Vitamin D Deficiency Status: Normal Result Value Ref Range Vitamin D, Total (25-Hydroxy) 45 20 - 50 ng/mL Narrative Season, race, dietary intake, and treatment affect the concentration of 74-bedmzct-Mpzbbes D. Values may decrease during winter months and increase during summer months. Vitamin D determination is routinely performed by an immunoassay specific for 25 hydroxyvitamin D3.If an individual is on vitamin D2(ergocalciferol) supplementation, please specify 25 OH vitamin D2 and D3 level determination by LCMSMS test VITD23. TSH with free T4 reflex Status: Normal Result Value Ref Range TSH 1.00 0.30 - 4.20 uIU/mL OB hemoglobin Status: Normal Result Value Ref Range Hemoglobin 12.2 11.7 - 15.7 g/dL Ferritin Status: Normal Result Value Ref Range Ferritin 17 6 - 175 ng/mL Glucose tolerance gest screen 1 hour Status: Abnormal Result Value Ref Range Glu Gest Screen 1hr 50g 142 (H) 70 - 129 mg/dL Narrative This is a screening test for Gestational Diabetes Mellitus. If results are 130 mg/dL or greater, a Standard 100 gram Gestational 3 hour Glucose Tolerance should be performed. ASSESSMENT:/PLAN: Return in 2 weeks 1 hour glucose screen done today - failed will check 3 hour screen DIRECTOR COMBAT PLANS OFFICER documented in this encounter Miscellaneous Notes * Result Encounter Note - Renee Bennett MD - 05/17/2023 9:20 AM AOC DIRECTOR COMBAT PLANS OFFICER Dear Yu, Here is a summary of your recent test results: -Hemoglobin is normal. There is no evidence of anemia. -TSH (thyroid stimulating hormone) level is normal which indicates normal thyroid function. -Vitamin D level is normal and getting 1000 IU daily in your diet or supplements is recommended. -Ferritin (iron) level is normal. -Gestational diabetes screening glucose was elevated and it is recommended you do a 3-hour glucose tolerance test here at the clinic. You can schedule a lab only appointment for this. For additional lab test information, [email or web address] is a very good reference. Thank you very much for trusting me and [facility]. Have a peaceful day. Healthy regards, Prasad Bennett MD DIRECTOR COMBAT PLANS OFFICER * Result Encounter Note - Renee Bennett MD - 05/17/2023 9:20 AM AOC DIRECTOR COMBAT PLANS OFFICER Note to Staff: please call the patient to review recommendations of recent result note as the patient did not check their MyChart result note message yet. DIRECTOR COMBAT PLANS OFFICER * Addendum Note - Renee Bennett MD - 05/17/2023 9:20 AM CSTAddended by: RENEE BENNETT on: 05/18/2023 11:44 PM Modules accepted: Orders DIRECTOR COMBAT PLANS OFFICER documented in this encounter Plan of Treatment Upcoming Encounters Date Type Department Care Team (Late st Contact Info) Description 07/22/2023 8:45 AM AOC DIRECTOR COMBAT PLANS OFFICER Appointment [facility] Maternal Medicine [place] [address] [address] [facility] [address] [place] [address] [phone] Sheila Jonse MD [address] [place] [address] [phone] 07/22/2023 9:15 AM AOC DIRECTOR COMBAT PLANS OFFICER Office Visit [facility] Maternal Medicine [place] [address] [address] [facility] [address] [place] [address] [phone] Sheila Jones MD [address] [place], [place] [address] 07/26/2023 8:00 AM AOC DIRECTOR COMBAT PLANS OFFICER Appointment [facility] Maternal Medicine [place] [address] [address] [facility] [address] [place] [address] [phone] Jennifer Boyer MD [address] [place], [place] [phone] Rayshawn Nunez MD [address] [place], [place] [phone] 07/26/2023 8:30 AM AOC DIRECTOR COMBAT PLANS OFFICER Office Visit [facility] Maternal Medicine [place] [address] [address] [facility] [address] [place] [address] Jennifer Boyer MD [address] [place] [address] Rayshawn Nunez MD [address] [place] [address] 07/29/2023 8:00 AM AOC DIRECTOR COMBAT PLANS OFFICER Office Visit [address] [phone] Renee Bennett MD [address] [place] [address] [phone] 07/29/2023 11:45 AM AOC DIRECTOR COMBAT PLANS OFFICER Appointment [facility] Maternal Medicine [place] [address] [address] [facility] [address] [place] [phone] Jennifer Boyer MD [address] [place] [address] 07/29/2023 12:15 PM AOC DIRECTOR COMBAT PLANS OFFICER Office Visit [facility] Maternal Medicine [place] [address] [address] [facility] [address] [place] [phone] Jennifer Boyer MD [address] [place] [address] 08/05/2023 8:00 AM AOC DIRECTOR COMBAT PLANS OFFICER Office Visit [address] [phone] Renee Bennett MD [address] [place] [address] 08/23/2023 Hospital Encounter [facility] [address] [place] [phone] Renee Bennett MD [address] [place] [address] documented as of this encounter Procedures Procedure Name Priority Date/Time Associated Diagnosis Comments GLUCOSE ALBUMIN OB URINE Routine 05/17/2023 1:19 PM AOC DIRECTOR COMBAT PLANS OFFICER Encounter for supervision of other normal in second trimester GLUCOSE TOLERANCE GEST SCREEN 1 HOUR Routine 05/17/2023 10:39 AM AOC DIRECTOR COMBAT PLANS OFFICER Encounter for supervision of other normal in second trimester VITAMIN D DEFICIENCY SCREENING Routine 05/17/2023 10:29 AM AOC DIRECTOR COMBAT PLANS OFFICER Encounter for supervision of other normal in second trimester TSH WITH FREE T4 REFLEX Routine 05/17/2023 10:29 AM AOC DIRECTOR COMBAT PLANS OFFICER Encounter for supervision of other normal in second trimester OB HEMOGLOBIN Routine 05/17/2023 10:29 AM AOC DIRECTOR COMBAT PLANS OFFICER Encounter for supervision of other normal in second trimester FERRITIN Routine 05/17/2023 10:29 AM AOC DIRECTOR COMBAT PLANS OFFICER Encounter for supervision of other normal in second trimester documented in this encounter Results * (ABNORMAL) Glucose and albumin, OB urine (05/17/2023 1:19 PM AOC DIRECTOR COMBAT PLANS OFFICER) Protein Albumin Urine Trace(A) Negative mg/dL 05/17/2023 1:22 PM AOC DIRECTOR COMBAT PLANS OFFICER [facility] Glucose Urine Negative Negative mg/dL 05/17/2023 1:22 PM AOC DIRECTOR COMBAT PLANS OFFICER [facility] Urine MID-STREAM URINE SPECIMEN / Unknown Non-blood Collection / Unknown 05/17/2023 1:19 PM AOC DIRECTOR COMBAT PLANS OFFICER 05/17/2023 1:19 PM AOC DIRECTOR COMBAT PLANS OFFICER Renee Bennett MD LAB - URINE ORDERABL ES [facility] [address] [facility] Lab (no room number, 1st floor of clinic) [place] [phone], [facility] [phone] * (ABNORMAL) Glucose tolerance gest screen 1 hour (05/17/2023 10:39 AM AOC DIRECTOR COMBAT PLANS OFFICER) Glu Gest Screen 1hr 50g 142(H) 70 - 129 mg/dL 05/17/2023 10:56 AM AOC DIRECTOR COMBAT PLANS OFFICER LABORATORY Blood BLOOD SPECIMEN / Unknown Venipuncture / Unknown 05/17/2023 10:39 AM AOC DIRECTOR COMBAT PLANS OFFICER 05/17/2023 10:39 AM AOC DIRECTOR COMBAT PLANS OFFICER Narrative LABORATORY - 05/17/2023 10:56 AM AOC DIRECTOR COMBAT PLANS OFFICER This is a screening test for Gestational Diabetes Mellitus. If results are 130 mg/dL or greater, a Standard 100 gram Gestational ??3 hour Glucose Tolerance should be performed. Renee Bennett MD LAB - BLOOD ORDERABL ES [facility] [address] [place] [address] Lab (no room number, 1st floor of clinic) [place] [address], [facility] [phone] * Ferritin (05/17/2023 10:29 AM AOC DIRECTOR COMBAT PLANS OFFICER) Ferritin 17 6 - 175 ng/mL 05/17/2023 8:27 PM AOC DIRECTOR COMBAT PLANS OFFICER [facility] Blood BLOOD SPECIMEN / Unknown Venipuncture / Unknown 05/17/2023 10:29 AM AOC DIRECTOR COMBAT PLANS OFFICER 05/17/2023 10:29 AM AOC DIRECTOR COMBAT PLANS OFFICER Renee Bennett MD LAB - BLOOD ORDERABL ES [facility] [address] [facility], [address] [place] [address], [place] [phone] * OB hemoglobin (05/17/2023 10:29 AM AOC DIRECTOR COMBAT PLANS OFFICER) Hemoglobin 12.2 11.7 - 15.7 g/dL 05/17/2023 10:39 AM AOC DIRECTOR COMBAT PLANS OFFICER [facility] Blood BLOOD SPECIMEN / Unknown Venipuncture / Unknown 05/17/2023 10:29 AM AOC DIRECTOR COMBAT PLANS OFFICER 05/17/2023 10:29 AM AOC DIRECTOR COMBAT PLANS OFFICER Renee Bennett MD LAB - BLOOD ORDERABL ES [facility] [address] [facility] Lab (no room number, 1st floor of clinic) [place] [address], [facility] [phone] * TSH with free T4 reflex (05/17/2023 10:29 AM AOC DIRECTOR COMBAT PLANS OFFICER) TSH 1.00 0.30 - 4.20 uIU/mL 05/17/2023 8:59 PM AOC DIRECTOR COMBAT PLANS OFFICER [facility] Blood BLOOD SPECIMEN / Unknown Venipuncture / Unknown 05/17/2023 10:29 AM AOC DIRECTOR COMBAT PLANS OFFICER 05/17/2023 10:29 AM AOC DIRECTOR COMBAT PLANS OFFICER Renee Bennett MD LAB - BLOOD ORDERABL ES [facility] [address] [facility], [address] [place] [address], [place] [phone] * Vitamin D Deficiency (05/17/2023 10:29 AM AOC DIRECTOR COMBAT PLANS OFFICER) Vitamin D, Total (25-Hydroxy) 45 20 - 50 ng/mL 05/17/2023 8:59 PM AOC DIRECTOR COMBAT PLANS OFFICER [facility] Comment:optimum levels Blood BLOOD SPECIMEN / Unknown Venipuncture / Unknown 05/17/2023 10:29 AM AOC DIRECTOR COMBAT PLANS OFFICER 05/17/2023 10:29 AM AOC DIRECTOR COMBAT PLANS OFFICER Narrative [facility] - 05/17/2023 8:59 PM AOC DIRECTOR COMBAT PLANS OFFICER Season, race, dietary intake, and treatment affect the concentration of 42-awbduno-Mqryvvp D. Values may decrease during winter months and increase during summer months. Vitamin D determination is routinely performed by an immunoassay specific for 25 hydroxyvitamin D3. ??If an individual is on vitamin D2(ergocalciferol) supplementation, please specify 25 OH vitamin D2 and D3 level determination by LCMSMS test VITD23. Renee Bennett MD LAB - BLOOD ORDERABL ES [facility] Lab [address] [facility], [address] [place] [phone], [facility] [phone] documented in this encounter Visit Diagnoses Diagnosis Encounter for supervision of other normal in second trimester- Primary Elevated glucose Other abnormal glucose documented in this encounter Additional Health Concerns Assessment Noted Time PHQ-9 Depression Total Score: 0 05/17/20 23 9:06 AM AOC DIRECTOR COMBAT PLANS OFFICER documented as of this encounter Care Teams Assessment Services Manager Relationship Specialty Start Date End Date Renee Bennett MD [address] [place] [address] [phone] PCP - General Family Medicine 07/07/20 Renee Bennett MD [address] [place] [address] [phone] Assigned PCP 08/14/22 documented as of this encounter
--- OUTSIDE RECORDS SUMMARY | 2023-07-21 14:01 | XMS_ITS | Encounter Summary ---
Author Name Unknown Organization [facility] Address [address] [place] [address]. [place] [address] Care Team Providers Care Non Destructive Testing Supervisor Name Role Phone Laureano Bennett MD Primary Care Provider [phone] Laureano Bennett MD Unavailable [phone] Encounter Details Date Type Department Care Team (Latest Contact Info) Description 03/10/2023 Travel Social History Tobacco Use Types Packs/Day [...] st Contact Info) Description 07/22/2023 8:45 AM [employer] MANAGER Appointment [facility] Maternal Medicine [place] [address] [address] [facility] [address] [place] [address] [phone] Sheila Jones MD [address] [place], [place] [phone] 07/22/2023 9:15 AM [employer] GROUND MANAGER Office Visit [facility] Maternal Medicine [place] [address] [place] [address] [phone] Sheila Jones MD [address] [place], [place] [phone] 07/26/2023 8:00 AM [employer] GR[employer] MANAGER Appointment [facility] Maternal Medicine [place] [address] [place] [address] [phone] Jennifer Boyer MD [address] [place], [place] 8[address] Rayshawn Nunez MD [address] [place], [place] [phone] 07/26/2023 8:30 AM [employer] MANAGER Office Visit [facility] Maternal Medicine [place] [address] [place] [address] [phone] Jennifer Boyer MD [address] [place] [address] Rayshawn Nunez MD [address] [place] [address] 07/29/2023 8:00 AM [employer] MANAGER Office Visit [address] [phone] Laureano Bennett MD [address] [place] [address] [phone] 07/29/2023 11:45 AM [employer] MANAGER Appointment [facility] Maternal Medicine [facility] [address] [facility] [address] [place] [phone] Jennifer Boyer MD [address] [place] [address] 07/29/2023 12:15 PM [employer] MANAGER Office Visit [facility] Maternal Medicine [facility] [address] [facility] [address] [place] [address] Jennifer Boyer MD [address] [place] [address] 08/05/2023 8:00 AM [employer] MANAGER Office Visit [address] [phone] Laureano Bennett MD [address] [place] [address] [phone] 08/23/2023 Hospital Encounter [facility] [address] [place] [phone] Laureano Bennett MD [address] [place], [place] 045572 documented as of this encounter Visit Diagnoses Not on filedocumented in this encounter Additional Health Concerns Assessment Noted Time PHQ-9 Depression Total Score: 12 023 9:01 AM CDT documented as of this encounter Care Teams Non Destructive Testing Supervisor Relationship Specialty [place] [address] [place] [phone] PCP - General Family Medicine 07/07/20 Laureano Bennett MD [address] [place] [address] Assigned PCP 08/14/22 documented as of this encounter
--- OUTSIDE RECORDS SUMMARY | 2023-07-21 14:01 | XMS_ITS | Encounter Summary ---
Author Name Unknown Organization [place] Address [address] [place] [address] Care Team Providers Care Spinner Fixer Name Role Phone Laureano Bennett MD Primary Care Provider Laureano Bennett MD Unavailable [phone] Reason for Visit * Diagnostic Imaging Ultrasound (Routine) - Pending Review Specialty Diagnoses / Procedures Referred By Contac t Referred To Contact Radiology. Diagnoses Encounter for supervision of other normal in second trimester Procedures US OB > 14 Weeks Laureano Bennett MD [address] [place] [address] Referral ID Status Reason Start Date Expiration Date V isits Requested Visits Authorized [id number] Pending Review 03/10/2023 03/09/2024 1 1 Encounter Details Date Type Department Care Team (Late st Contact Info) Description 04/11/2023 2:40 PM CDT Ancillary Procedure [address] [phone] Laureano Bennett MD [address] [place], [place] 7[address] Encounter for supervision of other normal in second trimester Social History Tobacco Use Types Packs/Day [...] Encounter Note - Laureano Bennett MD - 04/11/2023 2:40 PM CDT Dear Yu, Here is a summary of your recent test results: Your ultrasound looks good, and anatomy looks good but the spine was unable to be fully visualized., the placenta is anterior. We can review this further at your next visit. For additional lab test information, [email or web address] is a very good reference. Thank you very much for trusting me and [facility]. Have a peaceful day. Healthy regards, Prasad Bennett MD documented in this encounter Plan of Treatment Upcoming Encounters Date Type Department Care Team (Late st Contact Info) Description 07/22/2023 8:45 AM CONTRACT POST OFFICE CLERK Appointment [facility] Maternal Medicine [facility] [place] [address] [facility] [address] [place] [address] Sheila Jones MD [address] [place] [address] 07/22/2023 9:15 AM CONTRACT POST OFFICE CLERK Office Visit [facility] Maternal Medicine [place] [address] [place] [phone] Sheila Jones MD [address] [place] [address] 07/26/2023 8:00 AM CONTRACT POST OFFICE CLERK Appointment [facility] Maternal Medicine [place] [address] [address] [facility] [address] [place] [phone] Jennifer Boyer MD [address] [place], [place] [phone] [phone] Nunez MD [address] [place] [address] 07/26/2023 8:30 AM CONTRACT POST OFFICE CLERK Office Visit [facility] Maternal Medicine [place] [address] [address] [facility] [address] [place] [phone] Jennifer Boyer MD [address] [place], [place] [phone] Rayshawn Nunez MD [address] [place] [address] 07/29/2023 8:00 AM CONTRACT POST OFFICE CLERK Office Visit [address] [phone] Laureano Bennett MD [address] [place] [address] 07/29/2023 11:45 AM CONTRACT POST OFFICE CLERK Appointment [facility] Maternal Medicine [facility] [address] [facility] [address] [place] [address] Jennifer Boyer MD [address] [place] [address] 07/29/2023 12:15 PM CONTRACT POST OFFICE CLERK Office Visit [facility] Maternal Medicine [facility] [address] [facility] [address] [place] [address] Jennifer Boyer MD [address] [place] [address] 08/05/2023 8:00 AM CONTRACT POST OFFICE CLERK Office Visit [address] [phone] Laureano Bennett MD [address] [place] [address] 08/23/2023 Hospital Encounter [facility] [address] [place] [address] Laureano Bennett MD [address] [place] [phone] documented as of this encounter Procedures Procedure Name Priority Date/Time Associated Diagnosis Comments US OB > 14 WEEKS Routine 04/11/2023 4:14 PM CDT Encounter for supervision of other normal in second trimester documented in this encounter Results * US OB > 14 Weeks (04/11/2023 4:14 PM CDT) Anatomical Region Laterality Modality Abdomen/Pelvis Ultrasound Narrative 04/11/2023 4:23 PM CDT Table formatting from the original result was not included. [facility] ULTRASOUND - OB > 14 Weeks Complete [...] Lynne Rubi, DO ?? Obstetrics and Gynecology [facility] Laureano Bennett MD [facility] ORDERABLES documented in this encounter Visit Diagnoses Diagnosis Encounter for supervision of other normal in second trimester documented in this encounter Additional Health Concerns Assessment Noted Time PHQ-9 Depression Total Score: 12 023 9:01 AM CDT documented as of this encounter Care Teams Spinner Fixer Relationship Specialty Start Date End Date Laureano Bennett MD [address] [place] [address] PCP - General Family Medicine 07/07/20 Laureano Bennett MD [address] [place] [address] Assigned PCP 08/14/22 documented as of this encounter
--- OUTSIDE RECORDS SUMMARY | 2023-07-21 14:02 | XMS_ITS | Encounter Summary ---
Author Name Unknown Organization [place] Address [address] [place] [address] Care Team Providers Care Financial Intern Name Role Phone Laureano Bennett MD Primary Care Provider [phone] Laureano Bennett MD Unavailable [phone] Reason for Visit * Reason Onset Date Comments Results 01/06/2023 Encounter Details Date Type Department Care Team ([facility] st Contact Info) Description 01/06/2023 MyC Medical Advice [address] [phone] Laureano Bennett MD [address] [place] [address] Results Social History Tobacco Use Types Packs/Day Years [...] suspected to have Coronavirus/COVID-19? No / Unsure 01/05/2023 2:42 PM CDT documented as of this encounter Miscellaneous Notes * Telephone Encounter - Violette Hamilton RN - 01/07/2023 1:44 PM CDT Routing to provider to review and advise. Violette Hamilton RN [place] Triage documented in this encounter Plan of Treatment Upcoming Encounters Date Type Department Care Team (Late st Contact Info) Description 07/22/2023 8:45 AM TRUCK DOCK MATERIAL MOVER Appointment [facility] Maternal Medicine [place] [address] [place] [phone] Sheila Jones MD [address] [place], [place] [phone] 07/22/2023 9:15 AM TRUCK DOCK MATERIAL MOVER Office Visit [facility] Maternal Medicine [place] [address] [place] [phone] Sheila Jones MD [address] [place], [place] [address]311 [phone] 07/26/2023 8:00 AM TRUCK DOCK MATERIAL MOVER Appointment [facility] Medicine [place] [address] [place] [phone] Jennifer Boyer MD [address] [place], [place] [phone] Rayshawn Nunez MD [address] [place], [place] [address] 07/26/2023 8:30 AM TRUCK DOCK MATERIAL MOVER Office Visit [facility] Maternal Medicine [place] [address] [place] [phone] Jennifer Boyer MD [address] [place], [place] [phone] Rayshawn Nunez MD [address] [place] [address] 07/29/2023 8:00 AM TRUCK DOCK MATERIAL MOVER Office Visit [address] [phone] Laureano Bennett MD [address] [place] [address] [phone] 07/29/2023 11:45 AM TRUCK DOCK MATERIAL MOVER Appointment [facility] Maternal Medicine [facility] [address] [phone] Jennifer Boyer MD [address] [place] [address] 07/29/2023 12:15 PM TRUCK DOCK MATERIAL MOVER Office Visit [facility] Maternal Medicine [facility] [address] [phone] Jennifer Boyer MD [address] [place] [address] 08/05/2023 8:00 AM TRUCK DOCK MATERIAL MOVER Office Visit [address] [phone] Laureano Bennett MD [address] [place] [address] 774162 08/23/[address] [facility] [address] [place] [phone] Laureano Bennett MD [address] [place] [address] 870762 documented as of this encounter Visit Diagnoses Not on filedocumented in this encounter Additional Health Concerns Assessment Noted Time PHQ-9 Depression Total Score: 12 023 9:01 AM CDT documented as of this encounter Care Teams Financial Intern Relationship Specialty Start Date End Date Laureano Bennett MD [address] [place], [place] [phone] PCP - General Family Medicine 07/07/20 [place] [address] [place] [address] Assigned PCP 08/14/22 documented as of this encounter
--- OUTSIDE RECORDS SUMMARY | 2023-07-21 14:02 | XMS_ITS | Encounter Summary ---
Author Name Unknown Organization [place] Address [address] [place] [address] Care Team Providers Care Front Tender Name Role Phone Renee Bennett MD Primary Care Provider [phone] Renee Bennett MD Unavailable [phone] Reason for Visit * Reason Onset Date Comments Refill Request 01/10/2023 Encounter Details Date Type Department Care Team ([facility] st Contact Info) Description 01/10/2023 MyC Medical Advice [address] [phone] Renee Bennett MD [address] [place] [address] Refill Request Social History Tobacco Use Types Packs/Day Years [...] encounter Miscellaneous Notes * Telephone Encounter - Nathalie Abarca - 01/14/2023 12:40 PM CDT Patient did call regarding this request - see 01/14/23 telephone encounter. Please advise. * Telephone Encounter - Renee Bennett MD - 01/13/2023 1:46 PM CDT 21 sent * Telephone Encounter - Jacqueline Cheung RN - 01/13/2023 12:12 PM CDT See my chart- please advise. Jacqueline Cheung RN * Telephone Encounter - Jaja Patel RN - 01/10/2023 5:37 PM CDT Called pharmacy to clarify- asked if prior auth is needed for all zofran or can the quantity be adjusted and a pa is not needed. Without a prior authorization can not dispense any higher than 21 tabs. Telephone encounter regarding same info was sent to prior auth group. Sent patient mychart message Jaja Stone RN [facility] Triage * Addendum Note - Renee Bennett MD - 01/10/2023 10:51 AM CDTAddended by: RENEE BENNETT on: 01/13/2023 01:48 PM Modules accepted: Orders documented in this encounter Plan of Treatment Upcoming Encounters Date Type Department Care Team (Late st Contact Info) Description 07/22/2023 8:45 AM PLASTERER ROUGH Appointment [facility] M[facility] [place] [address] [facility] [address] [place] [address] Sheila Jones MD [address] [place] [address] 07/22/2023 9:15 AM PLASTERER ROUGH Office Visit [facility] Maternal Medicine [facility] [address] [place] [phone] Sheila Jones MD [address] [place] [address] 07/26/2023 8:00 AM PLASTERER ROUGH Appointment [facility] Maternal Medicine [place] [address] [facility] [address] [place] [phone] Jennifer Boyer MD [address] [place], [place] 45[address] Rayshawn Nunez MD [address] [place] [address] 07/26/2023 8:30 AM PLASTERER ROUGH Office Visit [facility] Maternal Medicine [place] [address] [facility] [address] [place] [phone] Jennifer Boyer MD [address] [place], [place] 50[address] Rayshawn Nunez MD [address] [place] [address] 07/29/2023 8:00 AM PLASTERER ROUGH Office Visit [address] [phone] Renee Bennett MD [address] [place] [address] 07/29/2023 11:45 AM PLASTERER ROUGH Appointment [facility] Medicine [facility] [address] [facility] [address] [place] [phone] Jennifer Boyer MD [address] [place] [address] 07/29/2023 12:15 PM PLASTERER ROUGH Office Visit [facility] Medicine [facility] [address] [facility] [address] [place] [phone] Jennifer Boyer MD [address] [place] [address] 08/05/2023 8:00 AM PLASTERER ROUGH Office Visit [address] [phone] Renee Bennett MD [address] [place] [address] 08/23/2023 Hospital Encounter [facility] [address] [place] [address] Renee Bennett MD [address] [place] [address] 313102 documented as of this encounter Visit Diagnoses Diagnosis Hyperemesis Persistent vomiting documented in this encounter Additional Health Concerns Assessment Noted Time PHQ-9 Depression Total Score: 12 023 9:01 AM CDT documented as of this encounter Care Teams Front Tender Relationship Specialty Start Date End Date Renee Bennett MD [address] [place] [address] PCP - General Family Medicine 07/07/20 Renee Bennett MD [address] [place] [address] Assigned PCP 08/14/22 documented as of this encounter
--- OUTSIDE RECORDS SUMMARY | 2023-07-21 14:02 | XMS_ITS | Encounter Summary ---
Author Name Unknown [facility] Address [address] [place] [address] Care Team Providers Care Front Desk Representative Name Role Phone Laureano Bennett MD Primary Care Provider [phone] Laureano Bennett MD Unavailable [phone] Encounter Details Date Type Department Care Team (Late st Contact Info) Description 01/05/2023 MyC Medical Advice [address] [phone] Laureano Bennett MD [address] [place] [address] Social History Tobacco Use Types Packs/Day [...] PM CDT documented as of this encounter Plan of Treatment Upcoming Encounters Date Type Department Care Team (Late st Contact Info) Description 07/22/2023 8:45 AM MACHINE OPERATOR HAY STACKER Appointment [facility] M[facility] Medicine [facility] [place] [address] [place] [address] Sheila Jones MD [address] [place] [address] 07/22/2023 9:15 AM MACHINE OPERATOR HAY STACKER Office Visit [facility] Medicine [place] [address] [facility] [address] [place] [phone] Sheila Jones MD [address] [place] [address] 07/26/2023 8:00 AM MACHINE OPERATOR HAY STACKER Appointment [facility] Medicine [place] [address] [place] [phone] Jennifer Boyer MD [address] [place], [place] [address] Rayshawn Nunez MD [address] [place], [place] [address] 07/26/2023 8:30 AM MACHINE OPERATOR HAY STACKER Office Visit [facility] Maternal Medicine [place] [address] [place] [phone] Jennifer Boyer MD [address] [place], [place] 6[address] Rayshawn Nunez MD [address] [place], [place] [address] 07/29/2023 8:00 AM MACHINE OPERATOR HAY STACKER Office Visit [address] [phone] Laureano Bennett MD [address] [place] [address] 07/29/2023 11:45 AM MACHINE OPERATOR HAY STACKER Appointment [facility] Maternal Medicine [facility] [address] [facility] [address] [place] [phone] Jennifer Boyer MD [address] [place] [address] 07/29/2023 12:15 PM MACHINE OPERATOR HAY STACKER Office Visit [facility] Maternal Medicine [facility] [address] [facility] [address] [place] [phone] Jennifer Boyer MD [address] [place] [address] 08/05/2023 8:00 AM MACHINE OPERATOR HAY STACKER Office Visit [address] [phone] Laureano Bennett MD [address] [place] [address] 129[address] 08/23/2023 Hospital Encounter [facility] [address] [place] [phone] Laureano Bennett MD [address] [place] [address] [phone] documented as of this encounter Visit Diagnoses Not on filedocumented in this encounter Additional Health Concerns Assessment Noted Time PHQ-9 Depression Total Score: 12 023 9:01 AM CDT documented as of this encounter Care Teams Front Desk Representative Relationship Specialty Start Date End Date Laureano Bennett MD [address] [place] [address] [phone] PCP - General Family Medicine 07/07/20 Laureano Bennett MD [address] [place] [address] Assigned PCP 08/14/22 documented as of this encounter
--- OUTSIDE RECORDS SUMMARY | 2023-07-21 14:02 | XMS_ITS | Encounter Summary ---
Author Name Unknown Organization [place] Address [address] [place] [address] Care Team Providers Care Carton Stamper Name Role Phone Laureano Bennett MD Primary Care Provider [phone] Laureano Bennett MD Unavailable [phone] Reason for Visit * Reason Comments Care Psoriasis Scalp Encounter Details Date Type Department Care Team ([facility] st Contact Info) Description 01/04/2023 9:20 AM CDT Office Visit [address] [phone] Laureano Bennett MD [address] [place] [address] test positive (Primary Dx); Hyperemesis; Dermatitis Social History Tobacco Use Types Packs/Day Years [...] Sign Reading Time Taken Comments Blood Pressure 118/66 01/04/2023 9:14 AM CDT Pulse 92 01/04/2023 9:14 AM CDT Temperature 36.7 ??C (98 ??F) 01/04/2023 9:14 AM CDT Respiratory Rate 13 01/04/2023 9:14 AM CDT Oxygen Saturation 99% 01/04/2023 9:14 AM CDT Inhaled Oxygen Concentration - - Weight 72.6 kg (160 lb) 01/04/2023 9:14 AM CDT Height 174 cm (5' 8.5) 01/04/2023 9:14 AM CDT Body Mass Index 23.97 01/04/2023 9:14 AM CDT documented in this encounter Progress Notes * Laureano Bennett MD - 01/04/2023 9:20 AM CDT Images from the original note were not included. Assessment & Plan test positive confirmed, will get dating ultrasound (already scheduled) and follow- up at around 10 to 12 weeks gestation. - HCG Qual, Urine ([id number]) Hyperemesis Symptoms present and can try below options. Information given in handout as well. - pyridOXINE (VITAMIN B6) 25 MG tablet - doxylamine (UNISOM) 25 MG TABS tablet - ondansetron (ZOFRAN ODT) 4 MG ODT tab Dispense: 30 tablet; Refill: 5 Dermatitis Psoriasis and/or dermatitis on the scalp, will restart occasional use of: - clobetasol (TEMOVATE) 0.05 % external solution Dispense: 50 mL; Refill: 1 Depression Screening Follow Up 01/04/2023 9:01 AM PHQ PHQ-9 Total Score 12 Q9: Thoughts of better off /self-harm past 2 weeks Not at all 01/04/2023 9:01 AM Last PHQ-9 1. Little interest or pleasure in doing things 3 2. Feeling down, depressed, or hopeless 0 3. Trouble falling or staying asleep, or sleeping too much 2 4. Feeling tired or having little energy 3 5. Poor appetite or overeating 3 6. Feeling bad about yourself 0 7. Trouble concentrating 1 8. Moving slowly or restless 0 Q9: Thoughts of better off /self-harm past 2 weeks 0 PHQ-9 Total Score 12 Follow Up Actions Taken Crisis resource information provided in After Visit Summary Return in about 1 month (around 02/04/2023) for visit. Prasad Bennett MD [facility] [address] [place] [address] [employer] Office: [phone] Joi Nicholas is a 27 year old, presenting for the following health issues: Care and Psoriasis (Scalp ) 01/04/2023 9:06 AM Additional Questions Roomed by Benigno Key CMA HPI confirmation 7 weeks gestation Concerns today: Yes, patients sister and mother had hyperemesis, patient is having extreme nausea. 4th was a Still at 39 weeks ( what precautions can she take) in October 2021, psoriasis flair up on her scalp (has not had for ~5 years and previous flare-up have been controled with topical steroids. ) Bleeding: No Cramping/Contractions:No Review of Systems Objective BP 118/66 (BP Location: Right arm, Patient Position: Sitting, Cuff Size: Adult Large) Pulse 92 Temp 98 ??F (36.7 ??C) (Tympanic) Resp 13 Ht 1.74 m (5' 8.5) Wt 72.6 kg (160 lb) LMP 11/16/2022 (Exact Date) SpO2 99% BMI 23.97 kg/m?? Body mass index is 23.97 kg/m??. Physical Exam GENERAL: healthy, alert and no distress RESP: lungs clear to auscultation - no rales, rhonchi or wheezes CV: regular rate and rhythm, normal S1 S2, no S3 or S4, no murmur, click or rub, no peripheral edema and peripheral pulses strong ABDOMEN: soft, nontender, no hepatosplenomegaly, no masses and bowel sounds normal MS no gross musculoskeletal defects noted, no edema SKIN:: Small pink scaly patches in the hairline anteriorly otherwise no suspicious lesions or rashes Results for orders placed or performed in visit on 01/04/23 Glucose and albumin, OB urine Status: Abnormal Result Value Ref Range Protein Albumin Urine 100 (A) Negative mg/dL Glucose Urine Negative Negative mg/dL HCG Qual, Urine ([id number]) Status: Abnormal Result Value Ref Range hCG Urine Qualitative Positive (A) Negative Answers for HPI/ROS submitted by the patient on 01/04/2023 If you checked off any problems, how difficult have these problems made it for you to do your work,take care of things at home, or get along with other people?: Extremely difficult PHQ9 TOTAL SCORE: 12 documented in this encounter Miscellaneous Notes * Result Encounter Note - Laureano Bennett MD - 01/04/2023 9:20 AM CDT Dear Yu, Here is a summary of your recent test results: -HCG test showed you are ! Thank you very much for trusting me and [facility]. Have a peaceful day. Healthy regards, Prasad Bennett MD documented in this encounter Plan of Treatment Upcoming Encounters Date Type Department Care Team (Late st Contact Info) Description 07/22/2023 8:45 AM ROLL FORMING MACHINE OPERATOR Appointment [facility] Medicine [place] [address] [facility] [address] [place] [phone] Sheila Jones MD [address] [place] [address] 07/22/2023 9:15 AM ROLL FORMING MACHINE OPERATOR Office Visit [facility] Medicine [place] [address] [facility] [address] [place] [phone] Sheila Jones MD [address] [place], [place] [phone] 07/26/2023 8:00 AM ROLL FORMING MACHINE OPERATOR Appointment [facility] Medicine [place] [address] [place] [phone] Jennifer Boyer MD [address] [place], [place] [phone] Rayshawn Nunez MD [address] [place] [address] 07/26/2023 8:30 AM ROLL FORMING MACHINE OPERATOR Office Visit [facility] Maternal Medicine [place] [address] [place] [address] Jennifer Boyer MD [address] [place] [address] Rayshawn Nunez MD [address] [place] [address] 07/29/2023 8:00 AM ROLL FORMING MACHINE OPERATOR Office Visit [address] [phone] Laureano Bennett MD [address] [place] [address] 07/29/2023 11:45 AM ROLL FORMING MACHINE OPERATOR Appointment [facility] Medicine [place] [address] [facility] [address] [place] [phone] Jennifer Boyer MD [address] [place] [address] 07/29/2023 12:15 PM ROLL FORMING MACHINE OPERATOR Office Visit [facility] Maternal Medicine [place] [address] [address] [facility] [address] [place] [phone] Jennifer Boyer MD [address] [place] [address] 08/05/2023 8:00 AM ROLL FORMING MACHINE OPERATOR Office Visit [address] [place] [phone] Laureano Bennett MD [address] [place] [phone] 08/23/[address] [facility] [address] [place] [phone] Laureano Bennett MD [address] [place] [address] [phone] documented as of this encounter Procedures Procedure Name Priority Date/Time Associated Diagnosis Comments GLUCOSE ALBUMIN OB URINE Routine 01/04/2023 9:30 AM CDT HCG QUALITATIVE URINE Add-On 01/04/2023 9:30 AM CDT test positive documented in this encounter Results * (ABNORMAL) HCG Qual, Urine ([id number]) (01/04/2023 9:30 AM CDT) hCG Urine Qualitative Positive( A) Negative CARLA 01/04/2023 10:31 AM CDT [facility] Comment:This test is for scr eening purposes. Results should be interpreted along with the clinical picture. Confirmation testing is available if warranted by ordering [id number], HCG Quantitative . Urine MID-STREAM URINE SPECIMEN / Unknown Non-blood Collection / Unknown 01/04/2023 9:30 AM CDT 01/04/2023 9:30 AM CDT Laureano Bennett MD LAB - URINE ORDERABL ES [facility] [address] [place] [address] Lab (no room number, 1st floor of clinic) [place] [address], [facility] [phone] * (ABNORMAL) Glucose and albumin, OB urine (01/04/2023 9:30 AM CDT) Protein Albumin Urine 100(A) Negative mg/dL 01/04/2023 9:43 AM CDT [facility] Glucose Urine Negative Negative mg/dL 01/04/2023 9:43 AM CDT [facility] Urine MID-STREAM URINE SPECIMEN / Unknown Non-blood Collection / Unknown 01/04/2023 9:30 AM CDT 01/04/2023 9:30 AM CDT Laureano Bennett MD LAB - URINE ORDERABL ES [facility] [address] [place] [address] Lab (no room number, 1st floor of clinic) [place] [address], [facility] [phone] documented in this encounter Visit Diagnoses Diagnosis test positive- Primary examination or test, positive result Hyperemesis Persistent vomiting Dermatitis Contact dermatitis and other eczema, due to unspecified cause documented in this encounter Additional Health Concerns Assessment Noted Time PHQ-9 Depression Total Score: 12 023 9:01 AM CDT documented as of this encounter Care Teams Carton Stamper Relationship Specialty Start Date End Date Laureano Bennett MD [address] [place] [address] PCP - General Family Medicine 07/07/20 Laureano Bennett MD [address] [place] [address] Assigned PCP 08/14/22 documented as of this encounter
--- OUTSIDE RECORDS SUMMARY | 2023-07-21 14:02 | XMS_ITS | Encounter Summary ---
Author Name Unknown Organization [place] Address [address] [facility] [facility] [place] [address] Care Team Providers Care Marketing Support Assistant Name Role Phone Laureano Bennett MD Primary Care Provider [phone] Laureano Bennett MD Unavailable Encounter Details Date Type Department Care Team (Latest Contact Info) Description 01/05/2023 Travel Social History Tobacco Use Types Packs/Day [...] st Contact Info) Description 07/22/2023 8:45 AM SIDEWALK INSPECTOR Appointment [facility] [place] [address] [facility] [address] [place] [address] Sheila Jones MD [address] [place] [address] 07/22/2023 9:15 AM SIDEWALK INSPECTOR Office Visit [facility] [place] [address] [place] [phone] Sheila Jones MD [address] [place] [address] 07/26/2023 8:00 AM SIDEWALK INSPECTOR Appointment [facility] [place] [address] [address] [facility] [address] [place] [phone] Jennifer Boyer MD [address] [place], [place] [phone] Rayshawn Nunez MD [address] [place], [place] [address] 07/26/2023 8:30 AM SIDEWALK INSPECTOR Office Visit [facility] [place] [address] [facility] [address] [place] [phone] Jennifer Boyer MD [address] [place], [place] [address] Rayshawn Nunez MD [address] [place], [place] [address] 07/29/2023 8:00 AM SIDEWALK INSPECTOR Office Visit [address] [place] [phone] Laureano Bennett MD [address] [place] [phone] 07/29/2023 11:45 AM SIDEWALK INSPECTOR Appointment [facility] [place] [address] [address] [facility] [address] [place] [phone] Jennifer Boyer MD [address] [place] [address] 07/29/2023 12:15 PM SIDEWALK INSPECTOR Office Visit [facility] [place] [address] [facility] [address] [place] [phone] Jennifer Boyer MD [address] [place] [address] 08/05/2023 8:00 AM SIDEWALK INSPECTOR Office Visit [address] [phone] Laureano Bennett MD [address] [place] [phone] 08/23/2023 Hospital Encounter [facility] [address] [place] [address] Laureano Bennett MD [address] [place] [address] [id number] documented as of this encounter Visit Diagnoses Not on filedocumented in this encounter Additional Health Concerns Assessment Noted Time PHQ-9 Depression Total Score: 12 023 9:01 AM CDT documented as of this encounter Care Teams Marketing Support Assistant Relationship Specialty Start Date End Date Laureano Bennett MD [address] [place] [address] [phone] PCP - General Family Medicine 07/07/20 Laureano Bennett MD [address] [place] [id number] Assigned PCP 08/14/22 documented as of this encounter
--- OUTSIDE RECORDS SUMMARY | 2023-07-21 14:02 | XMS_ITS | Encounter Summary ---
Author Name Unknown Organization [place] Address [address] [place] [id number] Care Team Providers Care Infantry Weapons Crewmember Name Role Phone Laureano Bennett MD Primary Care Provider [phone] Laureano Bennett MD Unavailable [phone] Reason for Referral * Diagnostic Imaging Ultrasound (Routine) - Pending Review Specialty Diagnoses / Procedures Referred By Contac t Referred To Contact Radiology. Diagnoses test positive Procedures US OB < 14 Weeks [place] [address] [place] [address] Referral ID Status Reason Start Date Expiration Date V isits Requested Visits Authorized Pending Review 12/23/2022 12/23/2023 1 1 Reason for Visit * Diagnostic Imaging Ultrasound (Routine) - Pending Review Specialty Diagnoses / Procedures Referred By Contac t Referred To Contact Radiology. Diagnoses test positive Procedures US OB < 14 Weeks Single Transabdominal Laureano Bennett MD [address] [place] [address] Referral ID Status Reason Start Date Expiration Date V isits Requested Visits Authorized Pending Review 12/23/2022 12/23/2023 1 1 Encounter Details Date Type Department Care Team (Late st Contact Info) Description 01/05/2023 2:42 PM CDT - 01/05/2023 11:59 PM CDT Hospital Encounter [facility] [address] [facility] [address] [place] [phone] [place] [address] [place] [address] [phone] test positive Discharge Disposition: Home or Self Care Social [...] PM CDT documented as of this encounter Medications at Time of Discharge Medication Sig Dispensed Refills Start Date End Date clobetasol (TEMOVATE) 0.05 % external solutionIndications:Say matitis Apply topically 2 times daily as needed 50 mL 1 01/05/2023 fish oil-omega-3 fatty acids 1000 MG capsule Take 2 g by mouth daily 0 Vit-Fe Fumarate-FA ( MULTIVITAMIN W/IRON) 27-0.8 MG tablet Take 1 tablet by mouth daily 0 doxylamine (UNISOM) 25 MG TABS tabletIndications:Hyper emesis Take 0.5 tablets (12.5 mg) by mouth nightly as needed (nausea) - and can increase to every 6 hours as needed 0 01/04/2023 05/17/2023 ondansetron (ZOFRAN ODT) 4 MG ODT tabIndications:Hypereme sis Take 1 tablet (4 mg) by mouth every 8 hours as needed for nausea 30 tablet 5 01/04/2023 01/13/2023 pyridOXINE (VITAMIN B6) 25 MG tabletIndications:Hyper emesis Take 1 tablet (25 mg) by mouth every 6 hours as needed (nausea) 0 01/04/2023 05/17/2023 documented as of this encounter Miscellaneous Notes * Result Encounter Note - Laureano Bennett MD - 01/05/2023 11:59 PM CDT Dear Yu, Here is a summary of your recent test results: -Your ultrasound overall looks good and your dates look accurate. We will review this further at your next visit. For additional lab test information, www.testing.com is a very good reference. Thank you very much for trusting me and [facility]. Have a peaceful day. Healthy regards, Prasad Bennett MD documented in this encounter Plan of Treatment Upcoming Encounters Date Type Department Care Team (Late st Contact Info) Description 07/22/2023 8:45 AM TELEPHONE INSTRUMENT SUPERVISOR Appointment [facility] [place] [address] [facility] [address] [place] [phone] Sheila Jones MD [address] [place], [place] [phone] 07/22/2023 9:15 AM TELEPHONE INSTRUMENT SUPERVISOR Office Visit [facility] [place] [address] [facility] [address] [place] [phone] Sheila Jones MD [address] [place] [address] 07/26/2023 8:00 AM TELEPHONE INSTRUMENT SUPERVISOR Appointment [facility] [place] [address] [address] [facility] [address] [place] [phone] Jennifer Boyer MD [address] [place], [place] [address] [phone] Rayshawn Nunez MD [address] [place], [place] [phone] 07/26/2023 8:30 AM TELEPHONE INSTRUMENT SUPERVISOR Office Visit [facility] [place] [address] [address] [facility] [address] [place] [address] Jennifer Boyer MD [address] [place] [address] Rayshawn Nunez MD [address] [place] [address] 07/29/2023 8:00 AM TELEPHONE INSTRUMENT SUPERVISOR Office Visit [address] [phone] Laureano Bennett MD [address] [place] [phone] 07/29/2023 11:45 AM TELEPHONE INSTRUMENT SUPERVISOR Appointment [facility] [place] [address] [address] [facility] [address] [place] [phone] Jennifer Boyer MD [address] [place] [address] 07/29/2023 12:15 PM TELEPHONE INSTRUMENT SUPERVISOR Office Visit [facility] [place] [address] [address] [facility] [address] [place] [phone] Jennifer Boyer MD [address] [place] [address] 08/05/2023 8:00 AM TELEPHONE INSTRUMENT SUPERVISOR Office Visit [address] [phone] Laureano Bennett MD [address] [place] [address] 08/23/2023 Hospital Encounter [facility] [address] [place] [phone] Laureano Bennett MD [address] [facility] [place] [id number] documented as of this encounter Procedures Procedure Name Priority Date/Time Associated Diagnosis Comments US OB < 14 WEEKS SINGLE-TRANSABDOMIN AL Routine 01/05/2023 3:15 PM CDT test positive documented in this encounter Results * US OB < 14 Weeks Single Transabdominal (01/05/2023 3:15 PM CDT) Anatomical Region Laterality Modality Abdomen/Pelvis Ultrasound Impressions 01/06/2023 7:55 AM CDT IMPRESSION: There is a single living intrauterine embryo with ultrasound gestational age of 7 weeks and 1 day corresponding to ultrasound estimated date of delivery of 08/23/2023. It is too early to accurately determine placental site. YULISSA SKAGGS MD SYSTEM ID: [id number] Narrative 01/06/2023 7:55 AM CDT US OB < 14 WEEKS SINGLE-TRANSABDOMINAL ?? 01/05/2023 3:15 PM HISTORY: Confirm dates; test positive. FINDINGS: There is a gestational sac within the uterine fundus. There is an embryo and yolk sac present within the gestational sac. The gestational sac is normal in shape. The embryo has a crown-rump length of 1 cm corresponding to 7 weeks and 1 day gestation. Embryonic heart motion is present at 142 beats per minute. The right ovary measures 3.3 x 2.5 x 2.2 cm. The left ovary 2.7 x 2.0 x 2.5 cm. There is normal blood flow to the ovaries. No adnexal masses. There is no free fluid in the pelvis. No subchorionic hemorrhage. Procedure Note Yulissa Skaggs MD - 01/06/2023 US OB < 14 WEEKS SINGLE-TRANSABDOMINAL 01/05/2023 3:15 PM HISTORY: Confirm dates; test positive. FINDINGS: There is a gestational sac within the uterine fundus. There is an embryo and yolk sac present within the gestational sac. The gestational sac is normal in shape. The embryo has a crown-rump length of 1 cm corresponding to 7 weeks and 1 day gestation. Embryonic heart motion is present at 142 beats per minute. The right ovary measures 3.3 x 2.5 x 2.2 cm. The left ovary 2.7 x 2.0 x 2.5 cm. There is normal blood flow to the ovaries. No adnexal masses. There is no free fluid in the pelvis. No subchorionic hemorrhage. IMPRESSION: There is a single living intrauterine embryo with ultrasound gestational age of 7 weeks and 1 day corresponding to ultrasound estimated date of delivery of 08/23/2023. It is too early to accurately determine placental site. YULISSA SKAGGS MD SYSTEM ID: [id number] Laureano Bennett MD IMG US ORDERABLES documented in this encounter Visit Diagnoses Diagnosis test positive examination or test, positive result documented in this encounter Additional Health Concerns Assessment Noted Time PHQ-9 Depression Total Score: 12 023 9:01 AM CDT documented as of this encounter Care Teams Infantry Weapons Crewmember Relationship Specialty Start Date End Date Laureano Bennett MD [address] [place] [id number] PCP - General Family Medicine 07/07/20 Laureano Bennett MD [address] [place] [address] Assigned PCP 08/14/22 documented as of this encounter
--- OUTSIDE RECORDS SUMMARY | 2023-07-21 14:02 | XMS_ITS | Encounter Summary ---
Author Name Unknown Organization [place] Address [address] [place] [address] Care Team Providers Care Autism Motor Specialist Name Role Phone Laureano Bennett MD Primary Care Provider [phone] Laureano Bennett MD Unavailable [phone] Reason for Visit * Reason Comments Care Encounter Details Date Type Department Care Team ([facility] st Contact Info) Description 02/10/2023 8:00 AM CDT Office Visit [address] [phone] Laureano Bennett MD [address] [place] [phone] , unspecified gestational age (Primary Dx); Hyperemesis Social History Tobacco Use Types Packs/Day Years [...] Sign Reading Time Taken Comments Blood Pressure 100/66 02/10/2023 8:09 AM CDT Pulse 72 02/10/2023 8:09 AM CDT Temperature 36.8 ??C (98.2 ??F) 02/10/2023 8:09 AM CD T Respiratory Rate 12 02/10/2023 8:09 AM CDT Oxygen Saturation 100% 02/10/2023 8:09 AM CDT Inhaled Oxygen Concentration - - Weight 74.4 kg (164 lb) 02/10/2023 8:09 AM CDT Height 174 cm (5' 8.5) 02/10/2023 8:09 AM CDT Body Mass Index 24.57 02/10/2023 8:09 AM CDT documented in this encounter Progress Notes * Laureano Bennett MD - 02/10/2023 8:00 AM CDT Images from the original note were not included. Subjective Yu Renee is a 27 year old woman who presents for an initial visit at Unknown gestation. Patient's last menstrual period was 11/16/2022 (exact date). Estimated Date of Delivery: Aug 23, 2023 She has not had bleeding since her LMP. She has had moderate nausea. Weight loss has not occurred. OTHER CONCERNS: OB History Para Term AB Living 5 4 4 0 0 3 SAB IAB Ectopic Multiple Live Births 0 0 0 0 3 # Outcome Date GA Lbr Carson/2nd Weight Sex Delivery Anes PTL Lv 5 Current 4 Term 10/30/21 39w3d / 00:05 4.649 kg (10 lb 4 oz) M Vag-Spont EPI FD Complications: Shoulder Dystocia Name: Yannick Apgar1: 0 Apgar5: 0 3 Term 05/31/20 39w4d 3.912 kg (8 lb 10 oz) M Vag-Spont None N DREW Name: Taurus 2 Term 10/04/18 40w0d 3.459 kg (7 lb 10 oz) M Vag-Spont None N DREW Name: Luis Eduardo 1 Term 01/14/17 39w0d 3.289 kg (7 lb 4 oz) M Induction None N DREW Name: Aba Patient Active Problem List Diagnosis Pelvic floor dysfunction in female Dyspareunia, female Dermatitis Hyperemesis History reviewed. No pertinent past medical history. Past Surgical History: Procedure Laterality Date NO HISTORY OF SURGERY Current Outpatient Medications Medication Sig Dispense Refill ondansetron (ZOFRAN ODT) 8 MG ODT tab Take 1 tablet (8 mg) by mouth every 8 hours as needed for nausea 45 tablet 5 clobetasol (TEMOVATE) 0.05 % external solution Apply topically 2 times daily as needed 50 mL 1 doxylamine (UNISOM) 25 MG TABS tablet Take 0.5 tablets (12.5 mg) by mouth nightly as needed (nausea) - and can increase to every 6 hours as needed fish oil-omega-3 fatty acids 1000 MG capsule Take 2 g by mouth daily Vit-Fe Fumarate-FA ( MULTIVITAMIN W/IRON) 27-0.8 MG tablet Take 1 tablet by mouth daily pyridOXINE (VITAMIN B6) 25 MG tablet Take 1 tablet (25 mg) by mouth every 6 hours as needed (nausea) Social History Socioeconomic History Marital status: Spouse name: Kennedy Number of children: 0 Years of education: None Highest education level: None Tobacco Use Smoking status: Never Smokeless tobacco: Never Vaping Use Vaping Use: Never used Substance and Sexual Activity Alcohol use: Not Currently Drug use: Never Family History Problem Relation Age of Onset No Known Problems Mother Heart Disease Father No Known Problems Sister No Known Problems Sister Asthma Brother Asthma Brother No Known Problems Brother Breast Cancer Maternal Grandmother Diabetes Maternal Grandfather Cerebrovascular Disease Paternal Grandfather No Known Problems Son No Known Problems Son No Known Problems Son Colon Cancer No family hx of Coronary Artery Disease No family hx of Genetic Screening/Infection History - see OB questionnaire - reviewed - Genetic/Infection questionnaire completed, risks include none . Pt does not have a recent known exposure to Parvo or CMV so IgG/IgM testing WILL NOT be ordered. Have you traveled during the ?No Have your sexual partner(s) travelled during the ?No - Risk for Gestational Diabetes - does not have Personal history of GDM, BMI>30, h/o prediabetes/glucose intolerance, first degree relative with GDM or DM - WILL have an early GCT and possible HgbA1C -Preeclampsia Risk - High Risk - meets one of following criteria The patient does not h/o Pre Eclampsia, Current multifetal gestation, Pre Gestational Diabetes (Type 1 or Type 2), chronic hypertension, renal disease, Autoimmune disease (systematic lupus erythematosus, antiphospholipid syndrome) so WILL NOT start lowdose aspirin (81mg) starting between 12 and 28 weeks to prevent early onset preeclampsia. - Moderate risk - She does not meets MORE THAN ONE of the moderate risk factors for Preeclampsia- Nulliparity, Obesity (body mass index >30 kg/m2),Family history of preeclampsia (mother or sister), Sociodemographic characteristics ( race, low socioeconomic status), Age ?35 years,Personal history factors (e.g., low birthweight or small for gestational age, previous adverse outcome, >10-year interval) so WILL NOT consider starting low dose aspirin (81mg)starting between 12 and 28 weeks to prevent early onset preeclampsia. -Pre Term Labor Risk Assessment no -Is the patient's age <18 or >40? no -Does the patient have a BMI < 18.5? no -If previous , was delivery within previous 6 months? no -Have you ever been diagnosed with pyelonephritis? no -Have you ever delivered a baby prior to 37 weeks gestation? no -Have you ever been told you have a uterine anomaly? no -Do you currently have uterine fibroids? no -Have you had any gynecological surgical procedures such as cervical conization, a LEEP procedure, laser treatment or cryosurgery of the cervix? no -Did your mother take VEENA or any other hormones when she was with you? no -Did conception for this occur via In Vitro Fertilization? no -Are you carrying twins? no -Do you currently use tobacco products? no -Prior to this , how much alcohol did you drink each week? (if >7/week= high risk..) no -Since you learned you were , how much beer, wine or hard liquor did you drink per week?(anything >0 = high risk) no -Prior to learning you are , did you use any of the following: marijuana, prescription narcotics, speed, cocaine, heroin, hallucinogens or other drugs? (any use within 1 yr = high risk) no -Since you learned you are , have you used any of the following: marijuana, prescriptionnarcotics, speed, cocaine, heroin, hallucinogens or other drugs? (any use = high risk) no -Do you have a history of chemical dependency (yes=high risk) no -Have you ever been treated for more than 1 Urinary Tract Infection during this ? no -Do you have a history of Depression, Bi-polar disorder, anxiety, schizophrenia or other mental illness? no -Are you currently being treated for depression, bi-polar disorder, anxiety, schizophrenia or other mental illness? no -Have you had Chlamydia or gonorrhea during this ? no -Periodontal disease (gum disease)? no -Has anyone hit, slapped, kicked or otherwise hurt you? no -Has anyone forced you to have sex when you didn't want to? Summary: Patient is not high risk for Labor - The patient does not have a history of spontaneous so WILL NOT consider progesterone starting at 16-20 weeks and/or serial transvaginal cervical length ultrasounds from 16-24 weeks. -The patient does not have a history of immunosuppresion or HIV so Toxoplasma IgG/IgM WILL NOT be ordered. Reviewed and updated as needed this visit by clinical staff Tobacco Allergies Meds Problems Med Hx Surg Hx Fam Hx Reviewed and updated as needed this visit by Provider Tobacco Allergies Meds Problems Med Hx Surg Hx Fam Hx Reviewed and updated as needed this visit by provider: Tobacco Allergies Meds Problems Med Hx Surg Hx Fam Hx Review of Systems Constitutional, HEENT, cardiovascular, pulmonary, GI, , musculoskeletal, neuro, skin, endocrine and psych systems are negative, except as otherwise noted. Objective BP 100/66 Pulse 72 Temp 98.2 ??F (36.8 ??C) (Tympanic) Resp 12 Ht 1.74 m (5' 8.5) Wt 74.4 kg (164 lb) LMP 11/16/2022 (Exact Date) GENERAL: Pleasant female, alert, well groomed. SKIN: Warm and dry, without lesions or rashes HEAD: Symmetrical features. EYES: PERRLA, MOUTH: Buccal mucosa pink, moist without lesions. NECK: Thyroid without enlargement and nodules. Lymph nodes not palpable. LUNGS: Clear to auscultation. BREAST: Symmetrical. No dominant, fixed or suspicious masses are noted. No skin or nipple changes or axillary nodes. Self exam is taught and encouraged. Nipples everted. HEART: RRR without murmur. ABDOMEN: Soft without masses , tenderness or organomegaly. No CVA tenderness. No scars noted.. FHT 140 MUSCULOSKELETAL: Full range of motion EXTREMITIES: No edema. No significant varicosities. GENITALIA: BUS WNL, no lesions noted VAGINA: Old [place], normal rugae and discharge normal and physiologic, wet prep normal. CERVIX: smooth, without discharge or CMT and parous os, firm/ closed 2 cm long. UTERUS: Anteverted, nontender 12 weeks in size. ADNEXA: Without masses or tenderness PELVIS: Adequate, Pelvis proven to 10 pounds See OB Flowsheet as well. Assessment & Plan , unspecified gestational age Hyperemesis is doing better, overall doing okay and will follow-up in 1 month. - ABO/Rh type and screen - Hepatitis B surface antigen - CBC with platelets - HIV Antigen Antibody Combo - Rubella Antibody IgG - Treponema Abs w Reflex to RPR and Titer - Urine Culture Aerobic Bacterial - Pap screen reflex to HPV if ASCUS - recommend age 25 - 29 - Glucose and albumin, OB urine - Glucose and albumin, OB urine - Wet prep - Clinic Collect - NEISSERIA GONORRHOEA PCR - CHLAMYDIA TRACHOMATIS PCR - Albumin Random Urine Quantitative with Creat Ratio - Albumin Random Urine Quantitative with Creat Ratio - ABO/Rh type and screen - Hepatitis B surface antigen - CBC with platelets - HIV Antigen Antibody Combo - Rubella Antibody IgG - Treponema Abs w Reflex to RPR and Titer - Urine Culture Aerobic Bacterial Hyperemesis Controlled and will refill med: - ondansetron (ZOFRAN ODT) 8 MG ODT tab Dispense: 45 tablet; Refill: 5 RECOMMENDED WEIGHT GAIN: 15-25 lbs. Instructed on best evidence for: weight gain for her BMI for ; healthy diet and foods to avoid; exercise and activity during ;avoiding exposure to toxoplasmosis; and maintenance of a generally healthy lifestyle. Discussed the harms, benefits, side effects and alternative therapies for current prescribed and OTC medications. Discussed genetic screening-declined Return in about 1 month (around 03/13/2023) for visit. Prasad Bennett MD [facility] [address] [place] [address] [email or web address] Office: [phone] Pager: [phone] documented in this encounter Miscellaneous Notes * Result Encounter Note - Laureano Bennett MD - 02/10/2023 8:00 AM CDT Dear Yu, Here is a summary of your recent test results: -All of your labs are essentially normal except some protein in the urine but your blood pressure is good so we will continue to monitor this. For additional lab test information, [email or web address] is a very good reference. Thank you very much for trusting me and [facility]. Have a peaceful day. Healthy regards, Prasad Bennett MD documented in this encounter Plan of Treatment Upcoming Encounters Date Type Department Care Team (Late st Contact Info) Description 07/22/2023 8:45 AM JAVA PROGRAMMING PROFESSOR Appointment [facility] [place] [address] [facility] [address] [place] [address] Sheila Jones MD [address] [facility] [address] [place] [address] 07/22/2023 9:15 AM JAVA PROGRAMMING PROFESSOR Office Visit [facility] [place] [address] [place] [phone] Sheila Jones MD [address] [place] [address] 07/26/2023 8:00 AM JAVA PROGRAMMING PROFESSOR Appointment [facility] [place] [address] [facility] [address] [place] [phone] Jennifer Boyer MD [address] [place], [place] [phone] Rayshawn Nunez MD [address] [place], [place] [address] 07/26/2023 8:30 AM JAVA PROGRAMMING PROFESSOR Office Visit [facility] [place] [address] [facility] [address] [place] [phone] Jennifer Boyer MD [address] [place], [place] [phone] Rayshawn Nunez MD [address] [place], [place] [phone] 07/29/2023 8:00 AM JAVA PROGRAMMING PROFESSOR Office Visit [address] [place] [phone] [place] [address] [place] [phone] 07/29/2023 11:45 AM JAVA PROGRAMMING PROFESSOR Appointment [facility] [place] [address] [facility] [address] [place] [phone] Jennifer Boyer MD [address] [place] [address] 07/29/2023 12:15 PM JAVA PROGRAMMING PROFESSOR Office Visit [facility] [place] [address] [place] [phone] Jennifer Boyer MD [address] [place] [address] 08/05/2023 8:00 AM JAVA PROGRAMMING PROFESSOR Office Visit [address] [phone] Laureano Bennett MD [address] [place] [phone] 08/23/2023 Hospital Encounter [facility] [address] [place] [phone] Laureano Bennett MD [address] [place] [phone] documented as of this encounter Procedures Procedure Name Priority Date/Time Associated Diagnosis Comments TYPE AND SCREEN, ADULT Routine 02/10/2023 9:27 AM CDT , unspecified gestational age RUBELLA ANTIBODY IGG Routine 02/10/2023 9:27 AM CDT , unspecified gestational age HIV ANTIGEN ANTIBODY COMBO Routine 02/10/2023 9:27 AM CDT , unspecified gestational age TREPONEMA ABS W REFLEX TO RPR AND TITER Routine 02/10/2023 9:27 AM CDT , unspecified gestational age HEPATITIS B SURFACE ANTIGEN Routine 02/10/2023 9:27 AM CDT , unspecified gestational age ABO/RH TYPE AND SCREEN Routine 02/10/2023 9:27 AM CDT , unspecified gestational age URINE CULTURE Routine 02/10/2023 9:27 AM CDT , unspecified gestational age CBC WITH PLATELETS Routine 02/10/2023 9: 27 AM CDT , unspecified gestational age NEISSERIA GONORRHOEAE PCR Routine 02/10/2023 8:59 AM CDT , unspecified gestational age CHLAMYDIA TRACHOMATIS PCR Routine 02/10/2023 8:59 AM CDT , unspecified gestational age WET PREPARATION Routine 02/10/2023 8:57 AM CDT , unspecified gestational age GYNECOLOGIC CYTOLOGY Routine 02/10/2023 8:29 AM CDT , unspecified gestational age GLUCOSE ALBUMIN OB URINE Routine 02/10/2023 7:02 AM CDT , unspecified gestational age ALBUMIN RANDOM URINE QUANTITATIVE Add-On 02/10/2023 7:02 AM CDT , unspecified gestational age documented in this encounter Results * Adult Type and Screen (02/10/2023 9:27 AM CDT) ABO/RH(D) A POS 02/09/2023 7:00 PM CDT RH BLOOD BANK Antibody Screen Negative Negative 02/09/2023 7:00 PM CDT RH BLOOD BANK SPECIMEN EXPIRATION DATE [id number] 02/09/2023 7:00 PM CDT RH BLOOD BANK Blood BLOOD SPECIMEN / Unknown Venipuncture / Unknown 02/10/2023 9:27 AM CDT 02/10/2023 9:27 AM CDT Laureano Bennett MD LAB - BLOOD BANK NELLY T ORDER RH BLOOD B[place] [address], [facility] * Urine Culture Aerobic Bacterial (02/10/2023 9:27 AM CDT) Culture <10,000 CFU/mL Urogenital blanca CARLA 02/12/2023 5:44 AM CDT [facility] Urine MID-STREAM URINE SPECIMEN / Unknown Non-blood Collection / Unknown 02/10/2023 9:27 AM CDT 02/10/2023 9:27 AM CDT Laureano Bennett MD LAB - MICRO GENERAL ORDERABLES [facility] Inf. Diseases Diag. Lab [address] [facility] [place] [address], [facility] [phone] * Treponema Abs w Reflex to RPR and Titer (02/10/2023 9:27 AM CDT) Treponema Antibody Total Nonreactive Nonreactive 02/10/2023 6:42 PM CDT SPECIALTY CORE/PROT/EN DO Blood BLOOD SPECIMEN / Unknown Venipuncture / Unknown 02/10/2023 9:27 AM CDT 02/10/2023 9:27 AM CDT Laureano Bennett MD LAB - BLOOD ORDERABL ES UM SPECIALTY CORE/PROT/ENDO Specialty Core/Prot/Endo [address] [facility], [address] [place] [address], [facility] [phone] * Rubella Antibody IgG (02/10/2023 9:27 AM CDT) Rubella Denisse IgG Instrument Value 2.73 <0.90 Index 02/11/2023 8:29 AM CDT SPECIALTY CORE/PROT/END O Rubella Antibody IgG Positive 02/11/2023 8:29 AM CDT SPECIALTY CORE/PROT/END O Comment:Suggests previous ex posure or immunization and probable immunity. Blood BLOOD SPECIMEN / Unknown Venipuncture / Unknown 02/10/2023 9:27 AM CDT 02/10/2023 9:27 AM CDT Laureano Bennett MD LAB - BLOOD ORDERABL ES UM SPECIALTY CORE/PROT/ENDO UM Specialty Core/Prot/Endo [address] [facility], [address] [phone] * HIV Antigen Antibody Combo (02/10/2023 9:27 AM CDT) HIV Antigen Antibody Combo Nonreactive Nonreactive 02/10/2023 8:54 PM CDT [facility] SPECIALTY CORE/PROT/EN DO Comment:HIV-1 p24 Ag & HIV-1 /HIV-2 Ab Not Detected Blood BLOOD SPECIMEN / Unknown Venipuncture / Unknown 02/10/2023 9:27 AM CDT 02/10/2023 9:27 AM CDT Laureano Bennett MD LAB - BLOOD ORDERABL ES UM SPECIALTY CORE/PROT/ENDO Specialty Core/Prot/Endo [address] [facility], [address] [phone] * CBC with platelets (02/10/2023 9:27 AM CDT) WBC Count 5.9 4.0 - 11.0 10e3/uL 02/10/2023 9:37 AM CDT [facility] RBC Count 4.70 3.80 - 5.20 10e6/uL 02/10/2023 9:37 AM CDT [facility] Hemoglobin 13.7 11.7 - 15.7 g/dL 02/10/2023 9:37 AM CDT [facility] Hematocrit 40.4 35.0 - 47.0 % 02/10/2023 9:37 AM CDT [facility] MCV 86 78 - 100 fL 02/10/2023 9:37 AM CDT [facility] MCH 29.1 26.5 - 33.0 pg 02/10/2023 9:37 AM CDT [facility] MCHC 33.9 31.5 - 36.5 g/dL 02/10/2023 9:37 AM CDT [facility] RDW 12.2 10.0 - 15.0 % 02/10/2023 9:37 AM CDT [facility] Platelet Count 228 150 - 450 10e3/uL 02/10/2023 9:37 AM CDT [facility] Blood BLOOD SPECIMEN / Unknown Venipuncture / Unknown 02/10/2023 9:27 AM CDT 02/10/2023 9:27 AM CDT Laureano Bennett MD LAB - BLOOD ORDERABL ES [facility] [address] [facility] Lab (no room number, 1st floor of clinic) [place] [phone], [facility] [phone] * Hepatitis B surface antigen (02/10/2023 9:27 AM CDT) Hepatitis B Surface Antigen Nonreactive Nonreactive 02/10/2023 8:47 PM CDT UM SPECIALTY CORE/PROT/EN DO Blood BLOOD SPECIMEN / Unknown Venipuncture / Unknown 02/10/2023 9:27 AM CDT 02/10/2023 9:27 AM CDT Laureano Bennett MD LAB - BLOOD ORDERABL ES UM SPECIALTY CORE/PROT/ENDO UM Specialty Core/Prot/Endo [address] [facility] [address] [facility], [address] [place] [address], [facility] [phone] * CHLAMYDIA TRACHOMATIS PCR (02/10/2023 8:59 AM CDT) Chlamydia trachomatis Negative Negative 02/11/2023 12:02 PM CDT [facility] Comment:A negative result by diesel bus mechanic mediated amplification does not preclude the presence of C. trachomatis infection because results are dependent on proper and adequate collection, absence of inhibitors and sufficient rRNA to be detected. Swab CERVIX UTERI STRUCTURE / Unknown Non-blood Collection / Unknown 02/10/2023 8:59 AM CDT 02/10/2023 9:19 AM CDT Laureano Bennett MD LAB - MICRO GENERAL ORDERABLES Performing Organization Address [facility] de Phone Number [facility] Inf. Diseases Diag. Lab [address] [place] [address], [address] [address], [facility] [phone] * NEISSERIA GONORRHOEA PCR (02/10/2023 8:59 AM CDT) Neisseria gonorrhoeae Negative Negative 02/11/2023 12:02 PM CDT [facility] Comment:Negative for N. gono rrhoeae rRNA by diesel bus mechanic mediated amplification. A negative result by diesel bus mechanic mediated amplification does not preclude the presence of C. trachomatis infection because results are dependent on proper and adequate collection, absence of inhibitors and sufficient rRNA to be detected. Swab CERVIX UTERI STRUCTURE / Unknown Non-blood Collection / Unknown 02/10/2023 8:59 AM CDT 02/10/2023 9:19 AM CDT Laureano Bennett MD LAB - MICRO GENERAL ORDERABLES Performing Organization Address [facility] Co de Phone Number [facility] Inf. Diseases Diag. Lab [address] [place] [address], [address] [address], [facility] [phone] * (ABNORMAL) Wet prep - Clinic Collect (02/10/2023 8:57 AM CDT) Trichomonas Absent Absent CARLA 02/10/2023 9:25 AM CDT [facility] Yeast Absent Absent CARLA 02/10/2023 9:25 AM CDT [facility] Clue Cells Absent Absent CARLA 02/10/2023 9:25 AM CDT [facility] WBCs/high power field 2+(A) None CARLA 02/10/2023 9:25 AM CDT [facility] Swab VAGINAL STRUCTURE / Unknown Non-blood Collection / Unknown 02/10/2023 8:57 AM CDT 02/10/2023 9:19 AM CDT Laureano Bennett MD LAB - MICRO GENERAL ORDERABLES LABORATORY [facility] [address] [facility] [address] Lab (no room number, 1st floor of clinic) [place] [address], [facility] [phone] * Pap screen reflex to HPV if ASCUS - recommend age 25 - 29 (02/10/2023 8:29 AM CDT) Interpretation Negative for Intraepithelial Lesion or Malignancy (NILM) 02/14/2023 11:47 AM CDT [facility] LABS Comment Papanicolaou Test Limitations: Cervical cytology is a screening test with limited sensitivity, and regular screening is critical for cancer prevention. Pap tests are primarily effective for the diagnosis/prevent ion of squamous cell carcinoma, not adenocarcinoma or other cancers. 02/14/2023 11:47 AM CDT [facility] Specimen Adequacy Satisfactory for evaluation, endocervical/ferreira sformation zone component present 02/14/2023 11:47 AM CDT [facility] Clinical Information 02/14/2023 11:47 AM CDT [facility] LMP/Menopause Date 11/16/2022 02/14/2023 11:47 AM CDT [facility] Reflex Testing Yes if ASCUS 02/15/20 11:47 AM CDT [facility] Previous Abnormal? No 02/14/2023 11:47 AM CDT [facility] Performing Labs The technical component of this testing was completed at [facility] 02/14/2023 11:47 AM CDT [facility] Brushing CERVIX UTERI STRUCTURE / Unknown Non-blood Collection / Unknown 02/10/2023 8:29 AM CDT 02/10/2023 9:18 AM CDT Laureano Bennett MD LAB - BEAKER [facility] LAB[facility] Specialty Lab [address] [facility] [address], [address] [place] [address], [facility] [phone] * (ABNORMAL) Albumin Random Urine Quantitative with Creat Ratio (02/10/2023 7:02 AM CDT) Creatinine Urine mg/dL 51.4 mg/dL 02/10/2023 8:27 PM CDT [facility] Comment:The reference ranges have not been established in urine creatinine. The results should be integrated into the clinical context for interpretation. Albumin Urine mg/L 44.6 mg/L 2022 8:27 PM CDT [facility] Comment:The reference ranges have not been established in urine albumin. The results should be integrated into the clinical context for interpretation. Albumin Urine mg/g Cr 86.77(H) 0.00 - 25.00 mg/g Cr 02/10/2023 8:27 PM CDT [facility] Comment: Microalbuminuria is defined as an albumin:creatinine ratio of 17 to 299 for males and 25 to 299 for females. A ratio of albumin:creatinine of 300 or higher is indicative of overt proteinuria. Due to biologic variability, positive results should be confirmed by a second, first-morning random or 24-hour timed urine specimen. If there is discrepancy, a third specimen is recommended. When 2 out of 3 results are in the microalbuminuria range, this is evidence for incipient nephropathy and warrants increased efforts at glucose control, blood pressure control, and institution of therapy with an gjsvrtyctjp-mzvhpgpjhy-judvmn (LUIS) inhibitor (if the patient can tolerate it). ?? Urine URINE SPECIMEN / Unknown Non-blood Collection / Unknown 02/10/2023 7:02 AM CDT 02/10/2023 8:29 AM CDT Laureano Bennett MD LAB - URINE ORDERABL ES UU LABORATORY [facility] [place] [facility] [address] [facility], Room [address] [address], [facility] [phone] * Glucose and albumin, OB urine (02/10/2023 7:02 AM CDT) Protein Albumin Urine Negative Negative mg/dL 02/10/2023 8:31 AM CDT RV LABORATORY Glucose Urine Negative Negative mg/dL 02/10/2023 8:31 AM CDT RV LABORATORY Urine URINE SPECIMEN / Unknown Non-blood Collection / Unknown 02/10/2023 7:02 AM CDT 02/10/2023 8:29 AM CDT Laureaon Bennett MD LAB - URINE ORDERABL ES RV LABORATORY [facility] [address] [place] [address] Lab (no room number, 1st floor of clinic) [place] [address], [facility] [phone] documented in this encounter Visit Diagnoses Diagnosis , unspecified gestational age- Primary Hyperemesis Persistent vomiting documented in this encounter Additional Health Concerns Assessment Noted Time PHQ-9 Depression Total Score: 12 023 9:01 AM CDT documented as of this encounter Care Teams Autism Motor Specialist Relationship Specialty Start Date End Date Laureano Bennett MD [address] [place] [address] [phone] PCP - General Family Medicine 07/07/20 Laureano Bennett MD [address] [place] [address] Assigned PCP 08/14/22 documented as of this encounter
--- OUTSIDE RECORDS SUMMARY | 2023-07-21 14:02 | XMS_ITS | Encounter Summary ---
Author Name Unknown Organization [place] Address [address] [place] [address] Care Team Providers Care Airline Reservationist Name Role Phone Laureano Bennett MD Primary Care Provider [phone] Laureano Bennett MD Unavailable [phone] Unavailable [phone] Encounter Details Date Type Department Care Team (Late Contact Info) Description 01/05/2023 MyC Medical Advice [address] [phone] Laureano Bennett MD [address] [place] [address] Social History Tobacco Use Types Packs/Day [...] Encounters Date Type Department Care Team (Late Contact Info) Description 07/22/2023 8:45 AM HOOKMAN Appointment [facility] Maternal Medicine [place] [address] [facility] [address] [place] [phone] Sheila Jones MD [address] [place] [address] 07/22/2023 9:15 AM [place]MAN Office Visit [facility] Maternal Medicine [place] [address] [facility] [address] [place] [phone] Sheila Jones MD [address] [place], [place] [address] 07/26/2023 8:00 AM HOOKMAN Appointment [facility] Maternal Medicine [place] [address] [facility] [address] [place] [phone] Jennifer Boyer MD [address] [place], [place] [address] Rayshawn Nunez MD [address] [place] [address] [phone] 07/26/2023 8:30 AM [place] Office Visit [facility] Maternal Medicine [place] [address] [facility] [address] [place] [phone] Jennifer Boyer MD [address] [place], [place] 934164 Rayshawn Nunez MD [address] [place], [place] 2528[address] 07/29/2023 8:00 AM [place] Office Visit [address] [place] [address] Laureano Bennett MD [address] [place] [address] [phone] 07/29/2023 11:45 AM HOOKMAN Appointment [facility] Maternal Medicine [facility] [address] [facility] [address] [place] [phone] Jennifer Boyer MD [address] [place] [address] 07/29/2023 12:15 PM HOOKMAN Office Visit [facility] Maternal Medicine [facility] [address] [facility] [address] [place] [phone] Jennifer Boyer MD [address] [place] [address] 08/05/2023 8:00 AM [place] Office Visit [facility] [address] [place] [phone] Laureano Bennett MD [address] [place] [address] [phone] 08/23/2023 Hospital Encounter [facility] [address] [place] [address] Laureano Bennett MD [address] [place] [address] 112492 documented as of this encounter Visit Diagnoses Not on filedocumented in this encounter Additional Health Concerns Assessment Noted Time PHQ-9 Depression Total Score: 12 023 9:01 AM CDT documented as of this encounter Care Teams Airline Reservationist Relationship Specialty Start Date End Date Laureano Bennett MD [address] [place] [address] PCP - General Family Medicine 07/07/20 Laureano Bennett MD [address] [facility] L[place]RI [place]OST [address] Assigned PCP 08/14/[address] [facility] [place] [address] JONATH[address] DE LA [place] [address] Claim Auditor Dietitian, Registered 06/14/23 documented as of this encounter
--- OUTSIDE RECORDS SUMMARY | 2023-07-21 14:02 | XMS_ITS | Encounter Summary ---
Author Name Unknown Organization [place] Address [address] [place] [address] Care Team Providers Care Independent Consultant Name Role Phone Laureano Bennett MD Primary Care Provider [phone] Laureano Bennett MD Unavailable [phone] Reason for Referral * Diagnostic Imaging Ultrasound (Routine) - Pending Review Specialty Diagnoses / Procedures Referred By Contac t Referred To Contact Radiology. Diagnoses test positive Procedures US OB < 14 Weeks Single Transabdominal Laureano Bennett MD [address] [place] [address] Referral ID Status Reason Start Date Expiration Date V isits Requested Visits Authorized [id number] Pending Review 12/23/2022 12/23/2023 1 1 Encounter Details Date Type Department Care Team (Late st Contact Info) Description 12/22/2022 MyC Medical Advice [address] [phone] Laureano Bennett MD [address] [place] [address] test positive (Primary Dx) Social History Tobacco Use Types Packs/Day Years Used Date Smoking Tobacco: Never Smokeless Tobacco: Never Alcohol Use Standard Drinks/Week Comments Not Currently 0 (1 standard drink = 0.6 oz pur e alcohol) Sex and Gender Information Value Date Recorded Sex Assigned at Not on file Gender Identity Not on file Sexual Orientation Not on file documented as of this encounter Miscellaneous Notes * Telephone Encounter - Lexie Gloria CMA - 12/24/2022 12:44 PM CDT Appt type changed to first OB. Lexie Gloria CMA * Telephone Encounter - Laureano Bennett MD - 12/23/2022 11:34 PM CDT Please review her upcoming appointment with me and make sure it is a first visit and in addition has the appropriate questionnaires assigned. * Telephone Encounter - Jacqueline Cheung RN - 12/23/2022 10:18 AM CDT Please advise. Jacqueline Cheung RN documented in this encounter Plan of Treatment Upcoming Encounters Date Type Department Care Team (Late st Contact Info) Description 07/22/2023 8:45 AM FLOOR WINDER Appointment [facility] Maternal Medicine [facility] [address] [place] [phone] Sheila Jones MD [address] [place] [address] 07/22/2023 9:15 AM FLOOR WINDER Office Visit [facility] Maternal Medicine [facility] [address] [place] [phone] Sheila Jones MD [address] [place] [address] 07/26/2023 8:00 AM FLOOR WINDER Appointment [facility] Maternal Medicine [facility] [address] [place] [phone] Jennifer Boyer MD [address] [place], [place] 9[address] Rayshawn Nunez MD [address] [place], [place] [phone] 07/26/2023 8:30 AM FLOOR WINDER Office Visit [facility] Maternal Medicine [place] [address] [facility] [address] [place] [address] Jennifer Boyer MD [address] [place], [place] [phone] Rayshawn Nunez MD [address] [place], [place] [phone] 07/29/2023 8:00 AM FLOOR WINDER Office Visit [address] [phone] Laureano Bennett MD [address] [place] [address] 07/29/2023 11:45 AM FLOOR WINDER Appointment [facility] Maternal Medicine [place] [address] [facility] [address] [place] [phone] Jennifer Boyer MD [address] [place], [place] 9[address] 07/29/2023 12:15 PM FLOOR WINDER Office Visit [facility] Medicine [place] [address] [address] [facility] [address] [place] [phone] Jennifer Boyer MD [address] [place], [place] [address] 08/05/2023 8:00 AM FLOOR WINDER Office Visit M [address] [phone] Laureano Bennett MD [address] [place] [address] 335002 08/23/2023 Hospital Encounter [facility] [address] [place] [address] Laureano Bennett MD [address] [place] [address] [phone] documented as of this encounter Results * US OB < [...] placental site. YULISSA SKAGGS MD SYSTEM ID: ??[id number] Narrative 01/06/2023 7:55 AM CDT US OB [...] placental site. YULISSA SKAGGS MD SYSTEM ID: [id number] Laureano Bennett MD IM US ORDERABLES documented in this encounter Visit Diagnoses Diagnosis test positive- Primary examination or test, positive result test positive examination or test, positive result documented in this encounter Care Teams Independent Consultant Relationship Specialty Start Date End Date Laureano Bennett MD [address] [place] [address]31 PCP - General Family Medicine 07/07/20 Laureano Bennett MD [address] [place] [address]93 Assigned PCP 08/14/22 documented as of this encounter
--- OUTSIDE RECORDS SUMMARY | 2023-07-21 14:02 | XMS_ITS | Encounter Summary ---
Author Name Unknown Organization [place] Address [address] [place] [address] Care Team Providers Care Aquatic Facility Manager Name Role Phone Laureano Bennett MD Primary Care Provider [phone] Laureano Bennett MD Unavailable [phone] Reason for Visit * Reason Onset Date Comments MyChart Communication 01/28/2023 Encounter Details Date Type Department Care Team ([facility] Contact Info) Description 01/28/2023 MyC Medical Advice [address] [phone] Laureano Bennett MD [address] [place] [address] MyChart Communication Social History Tobacco Use Types [...] Telephone Encounter - Megha Berg RN - 01/31/2023 9:41 AM CDT Please see my chart message below Please review and advise Thank you Megha Berg RN, BSN [facility] Triage * Telephone Encounter - Megha Berg RN - 01/31/2023 8:01 AM CDT My chart message sent Megha Berg RN, BSN [facility] Triage documented in this encounter Plan of Treatment Upcoming Encounters Date Type Department Care Team (Late st Contact Info) Description 07/22/2023 8:45 AM OCCUPATIONAL THERAPY SPECIALIST Appointment [facility] Maternal Medicine [place] [address] [facility] [address] [place] [address] [phone] Sheila Jones MD [address] [place] [address] [phone] 07/22/2023 9:15 AM OCCUPATIONAL THERAPY SPECIALIST Office Visit [facility] Maternal Medicine [place] [address] [facility] [address] [place] [phone] Sheila Jones MD [address] [place], [place] [address] 07/26/2023 8:00 AM OCCUPATIONAL THERAPY SPECIALIST Appointment [facility] Maternal Medicine [place] [address] [facility] [address] [place] [phone] Jennifer Boyer MD [address] [place], [place] [address] Raysahwn Nunez MD [address] [place], [place] [address] 07/26/2023 8:30 AM OCCUPATIONAL THERAPY SPECIALIST Office Visit [facility] Maternal Medicine [place] [address] [address] [facility] [address] [place] [address] Jennifer Boyer MD [address] [place] [address] Rayshawn Nunez MD [address] [place] [address] 07/29/2023 8:00 AM OCCUPATIONAL THERAPY SPECIALIST Office Visit [address] [phone] Laureano Bennett MD [address] [place] [address] [phone] 07/29/2023 11:45 AM OCCUPATIONAL THERAPY SPECIALIST Appointment [facility] Maternal Medicine [place] [address] [facility] [address] [place] [phone] Jennifer Boyer MD [address] [place] [address] 07/29/2023 12:15 PM OCCUPATIONAL THERAPY SPECIALIST Office Visit [facility] Maternal Medicine [place] [address] [facility] [address] [place] [phone] Jennifer Boyer MD [address] [place] [address] 08/05/2023 8:00 AM OCCUPATIONAL THERAPY SPECIALIST Office Visit [address] [phone] Laureano Bennett MD [address] [place] [address] [phone] 08/23/2023 Hospital Encounter [facility] [address] [place] [phone] Laureano eBnnett MD [facility] [place], [place] [phone] documented as of this encounter Visit Diagnoses Not on filedocumented in this encounter Additional Health Concerns Assessment Noted Time PHQ-9 Depression Total Score: 12 023 9:01 AM CDT documented as of this encounter Care Teams Aquatic Facility Manager Relationship Specialty Start Date End Date Laureano Bennett MD [address] [place] [address] PCP - General Family Medicine 07/07/20 Laureano Bennett MD [address] [place] [address] Assigned PCP 08/14/22 documented as of this encounter
--- OUTSIDE RECORDS SUMMARY | 2023-07-21 14:02 | XMS_ITS | Encounter Summary ---
Author Name Unknown Organization [place] Address [address] [place] [address] Care Team Providers Care Advertisement Compositor Name Role Phone Laureano Bennett MD Primary Care Provider [phone] Laureano Bennett MD Unavailable [phone] Unavailable [phone] Encounter Details Date Type Department Care Team (Late Contact Info) Description 01/14/2023 MyC Medical Advice [address] [phone] Laureano Bennett MD [address] [place] [address] Social History Tobacco Use Types Packs/Day [...] (Late Contact Info) Description 07/22/2023 8:45 AM CREPE BOX TENDER Appointment [facility] Maternal Medicine [place] [address] [address] [facility] [address] [place] [phone] Sheila Jones MD [address] [place] [address] 07/22/2023 9:15 AM CREPE BOX TENDER Office Visit [facility] Maternal Medicine [place] [address] [address] [facility] [address] [place] [phone] Sheila Jones MD [address] [place], [place] 29[address] 07/26/2023 8:00 AM CREPE BOX TENDER Appointment [facility] Maternal Medicine [place] [address] [address] [facility] [address] [place] [phone] Jennifer Boyer MD [address] [place], [place] [address] Rayshawn Nunez MD [address] [place] [address] [phone] 07/26/2023 8:30 AM CREPE BOX TENDER Office Visit [facility] Maternal Medicine [place] [address] [address] [facility] [address] [place] [phone] Jennifer Boyer MD [address] [place], [place] 1425[address] Rayshawn Nunez MD [address] [place], [place] [address] 07/29/2023 8:00 AM CREPE BOX TENDER Office Visit [address] [place] [address] Laureano Bennett MD [address] [place] [address] 300802 07/29/2023 11:45 AM CREPE BOX TENDER Appointment [facility] Maternal Medicine [facility] [address] [facility] [address] [place] [phone] Jennifer Boyer MD [address] [place] [address] 07/29/2023 12:15 PM CREPE BOX TENDER Office Visit [facility] Maternal Medicine [facility] [address] [facility] [address] [place] [phone] Jennifer Boyer MD [address] [place] [address] 08/05/2023 8:00 AM CREPE BOX TENDER Office Visit [facility] [address] [place] [phone] Laureano Bennett MD [address] [place] [address] 840952 08/23/2023 Hospital Encounter [facility] [address] [place] [address] Laureano Bennett MD [address] [place] [address] [phone] documented as of this encounter Visit Diagnoses Not on filedocumented in this encounter Additional Health Concerns Assessment Noted Time PHQ-9 Depression Total Score: 12 023 9:01 AM CDT documented as of this encounter Care Teams Advertisement Compositor Relationship Specialty Start Date End Date Laureano Bennett MD [address] [place] [address] PCP - General Family Medicine 07/07/20 Laureano Bennett MD [address] [facility] L[place] [address] Assigned PCP 08/14/[address] [facility] [place] [address] JONATHAN [place] [address] Manager Fashion Dietitian, Registered 06/14/23 documented as of this encounter
--- OUTSIDE RECORDS SUMMARY | 2023-07-21 14:02 | XMS_ITS | Encounter Summary ---
Author Name Unknown Organization [facility] Address [address] [place] [address] Care Team Providers Care Grounds Caretaker Name Role Phone Laureano Bennett MD Primary Care Provider [phone] Laureano Bennett MD Unavailable [phone] Unavailable [phone] Reason for Visit * Reason Onset Date Comments Prior Auth - Medication 01/10/2023 Ondanset topher 4MG Dispersible Tablets-pa approved Encounter Details Date Type Department Care Team (Late st Contact Info) Description 01/10/[address] [address] Laureano Bennett MD [address] [place] [address] Prior Auth - Medication (Ondansetron 4MG Dispersible Tablets-pa approved) Social History Tobacco Use Types Packs/Day Years [...] encounter Miscellaneous Notes * Telephone Encounter - Sherri Houston - 01/13/2023 5:21 PM CDT Images from the original note were not included. Prior Authorization Approval Medication: ONDANSETRON 4 MG PO TBDP Authorization Effective Date: 10/15/2022 Authorization Expiration Date: 01/14/2024 Approved Dose/Quantity: 90/30 Reference #: [id number] Insurance Company: [employer] - Expected CoPay: CoPay Card Available: Financial Assistance Needed: Which Pharmacy is filling the prescription: [id number] - [place] [place] - [address] AT [place] [address] Pharmacy Notified: Yes Patient Notified: Yes * Telephone Encounter - Sherri Houston - 01/13/2023 10:27 AM CDT Images from the original note were not included. PA Initiation Medication: ONDANSETRON 4 MG PO TBDP Insurance Company: [employer] - Pharmacy Filling the Rx: [id number] [place] - [address] [place] [address] Filling Pharmacy Filling Pharmacy Fax: Start Date: 01/13/2023 * Telephone Encounter - Laureano Bennett MD - 01/12/2023 3:42 PM CDT Please do prior authorization . * Telephone Encounter - Hemant Carias - 01/12/2023 2:24 PM CDT Prior Authorization Retail Medication Request Medication/Dose: Saji Prior Authorization for Ondansetron 4MG Dispersible Tablets ICD code (if different than what is on RX): Previously Tried and Failed: Rationale: Insurance Name: Insurance ID: Pharmacy Information (if different than what is on RX) Name: [facility] Phone: [phone] * Telephone Encounter - Lucia Samano - 01/12/2023 12:51 PM CDT Received a Formulary Exception form. Now in Yellow PA folder at front sight attacher for Christiano * Telephone Encounter - Hemant Carias - 01/10/2023 10:02 AM CDT Prior Authorization Retail Medication Request Medication/Dose: Saji Prior Authorization for Ondansetron 4MG Dispersible Tablets ICD code (if different than what is on RX): Previously Tried and Failed: Rationale: Insurance Name: Insurance ID: [id number] Pharmacy Information (if different than what is on RX) Name: [facility] Phone: [phone] * Telephone Encounter - Jaycee Padron - 01/10/2023 8:52 AM CDT Forms/Letter Request Type of form/letter: Saji Prior Authorization for Ondansetron 4MG Dispersible Tablets Have you been seen for this request: N/A Do we have the form/letter: Yes: Excel Analyst Yellow PA Folder Who is the form from? [facility] (if other please explain) Where did/will the form come from? form was faxed in documented in this encounter Plan of Treatment Upcoming Encounters Date Type Department Care Team (Late st Contact Info) Description 07/22/2023 8:45 AM CRAYON GRADER Appointment [facility] Medicine [place] [address] [address] [facility] [address] [place] [phone] Sheila Jones MD [address] [place] [address] 07/22/2023 9:15 AM CRAYON GRADER Office Visit [facility] [place] [address] [facility] [address] [place] [phone] Sheila Jones MD [address] [place] [address] 07/26/2023 8:00 AM CRAYON GRADER Appointment [facility] Medicine [place] [address] [facility] [address] [place] [phone] Jennifer Boyer MD [address] [place], [place] 56[address] Rayshawn Nunez MD [address] [place] [address] 07/26/2023 8:30 AM CRAYON GRADER Office Visit [facility] [place] [address] [facility] [address] [place] [phone] Jennifer Boyer MD [address] [place], [place] [address] Rayshawn Nunez MD [address] [place], [place] [address] 07/29/2023 8:00 AM CRAYON GRADER Office Visit [address] [phone] Laureano Bennett MD [address] [place] [address] 07/29/2023 11:45 AM CRAYON GRADER Appointment [facility] [address] [facility] [address] [place] [address] Jennifer Boyer MD [address] [place], [place] 3[address] 07/29/2023 12:15 PM CRAYON GRADER Office Visit [facility] [address] [phone] Jennifer Boyer MD [address] [place] [address] 08/05/2023 8:00 AM CRAYON GRADER Office Visit [address] [phone] Laureano Bennett MD [address] [place] [address] [phone] 08/23/2023 Hospital Encounter [facility] [address] [place] [address] Laureano Bennett MD [address] [place] [address] [phone] documented as of this encounter Visit Diagnoses Not on filedocumented in this encounter Additional Health Concerns Assessment Noted Time PHQ-9 Depression Total Score: 12 01/04/2 023 9:01 AM CDT documented as of this encounter Care Teams Grounds Caretaker Relationship Specialty Start Date End Date Laureano Bennett MD [address] [place], [place] 696372 PCP - General Family Medicine 07/07/20 [place] [address] [place] [address] [id number] Assigned PCP 08/14/[address] [facility] [place] [address] [place] [address] Cribber Dietitian, Registered 06/14/23 documented as of this encounter
--- OUTSIDE RECORDS SUMMARY | 2023-07-21 14:02 | XMS_ITS | Encounter Summary ---
Author Name Unknown Organization [facility] Address [address] [place] [address] Care Team Providers Care Fabric Awning Repairer Name Role Phone Laureano Bennett MD Primary Care Provider [phone] Laureano Bennett MD Unavailable [phone] Reason for Visit * Reason Onset Date Comments Medication Request 01/14/2023 Request quant ity override Encounter Details Date Type Department Care Team ([facility] st Contact Info) Description 01/14/[address] [phone] Laureano Bennett MD [address] [place] [address] Medication Request (Request quantity override ) Social History Tobacco Use Types Packs/Day Years [...] Telephone Encounter - Nathalie Abarca - 01/14/2023 11:39 AM CDT Patient is calling to report that the ondansetron with quantity of 21 tablets are not enough for her. Patient reports pharmacy informed her to ask PCP to request quantity override to insurance for this medication. Please advise. If this request doesn't work patient is requesting to have another med to alternate between. She reports that this medication does help, but 21 tabs aren't enough. Patient would prefer a [facility] message for updates. documented in this encounter Plan of Treatment Upcoming Encounters Date Type Department Care Team (Late st Contact Info) Description 07/22/2023 8:45 AM SAWMILL RELIEF WORKER Appointment [facility] Maternal Medicine [place] [address] [address] [facility] [address] [place] [phone] Sheila Jones MD [address] [place] [address] [phone] 07/22/2023 9:15 AM SAWMILL RELIEF WORKER Office Visit [facility] [place] [address] [address] [facility] [address] [place] [phone] Sheila Jones MD [address] [place] [address] 07/26/2023 8:00 AM SAWMILL RELIEF WORKER Appointment [facility] [address] [facility] [address] [place] [phone] Jennifer Boyer MD [address] [place], [place] [address] Rayshawn Nunez MD [address] [place] [address] 07/26/2023 8:30 AM SAWMILL RELIEF WORKER Office Visit [facility] Maternal Medicine [place] [address] [address] [facility] [address] [place] [address] Jennifer Boyer MD [address] [place] [address] Rayshawn Nunez MD [address] [place] [address] 07/29/2023 8:00 AM SAWMILL RELIEF WORKER Office Visit [address] [phone] Laureano Bennett MD [address] [place] [phone] 07/29/2023 11:45 AM SAWMILL RELIEF WORKER Appointment [facility] Maternal Medicine [place] [address] [address] [facility] [address] [place] [phone] Jennifer Boyer MD [address] [place] [address] 07/29/2023 12:15 PM SAWMILL RELIEF WORKER Office Visit [facility] Maternal Medicine [place] [address] [address] [facility] [address] [place] [phone] Jennifer Boyer MD [address] [place] [address] 08/05/2023 8:00 AM SAWMILL RELIEF WORKER Office Visit [address] [phone] aLureano Bennett MD [address] [place] [address] 08/23/2023 Hospital Encounter [facility] [address] [place] [phone] Laureano Bennett MD [address] [place] [address] [phone] documented as of this encounter Visit Diagnoses Diagnosis Hyperemesis- Primary Persistent vomiting documented in this encounter Additional Health Concerns Assessment Noted Time PHQ-9 Depression Total Score: 12 023 9:01 AM CDT documented as of this encounter Care Teams Fabric Awning Repairer Relationship Specialty Start Date End Date Laureano Bennett MD [address] [place] [address] [phone] PCP - General Family Medicine 07/07/20 Laureano Bennett MD [address] [place] [address] [phone] Assigned PCP 08/14/22 documented as of this encounter
--- OUTSIDE RECORDS SUMMARY | 2023-07-21 14:02 | XMS_ITS | Encounter Summary ---
Author Name Unknown Organization [facility] Address [address] [facility] [place] [address] Care Team Providers Care Human Resources Associate Name Role Phone Laureano Bennett MD Primary Care Provider [phone] Laureano Bennett MD Unavailable [phone] Encounter Details Date Type Department Care Team (Latest Contact Info) Description 01/04/2023 Travel Social History Tobacco Use Types Packs/Day [...] suspected to have Coronavirus/COVID-19? No / Unsure 01/04/2023 8:59 AM CDT documented as of this encounter Plan of Treatment Upcoming Encounters Date Type Department Care Team (Late st Contact Info) Description 07/22/2023 8:45 AM POOLROOM/POOLHALL MANAGER Appointment [facility] [place] [address] [place] [address] Sheila Jones MD [address] [place] [address] 07/22/2023 9:15 AM POOLROOM/POOLHALL MANAGER Office Visit [facility] Maternal Medicine [place] [address] [place] [phone] Sheila Jones MD [address] [place] [address] 07/26/2023 8:00 AM POOLROOM/POOLHALL MANAGER Appointment [facility] [place] [address] [address] [facility] [address] [place] [phone] Jennifer Boyer MD [address] [place], [place] 6[address] Rayshawn Nunez MD [address] [place], [place] [address] 07/26/2023 8:30 AM POOLROOM/POOLHALL MANAGER Office Visit [facility] [place] [address] [address] [place] [phone] Jennifer Boyer MD [address] [place], [place] [address] Rayshawn Nunez MD [address] [place], [place] [address] 07/29/2023 8:00 AM POOLROOM/POOLHALL MANAGER Office Visit [address] [place] [phone] Laureano Bennett MD [address] [place] [address] [phone] 07/29/2023 11:45 AM POOLROOM/POOLHALL MANAGER Appointment [facility] [place] [address] [address] [facility] [address] [place] [phone] Jennifer Boyer MD [address] [place] [address] 07/29/2023 12:15 PM POOLROOM/POOLHALL MANAGER Office Visit [facility] [place] [address] [facility] [address] [place] [phone] Jennifer Boyer MD [address] [place] [address] 08/05/2023 8:00 AM POOLROOM/POOLHALL MANAGER Office Visit [address] [phone] Laureano Bennett MD [address] [place] [address] [phone] 08/23/2023 Hospital Encounter [facility] [address] [place] [address] Laureano Bennett MD [address] [place] [address] [phone] documented as of this encounter Visit Diagnoses Not on filedocumented in this encounter Additional Health Concerns Assessment Noted Time PHQ-9 Depression Total Score: 12 023 9:01 AM CDT documented as of this encounter Care Teams Human Resources Associate Relationship Specialty Start Date End Date Laureano Bennett MD [address] [place] [address] [phone] PCP - General Family Medicine 07/07/20 Laureano Bennett MD [address] [place] [address] Assigned PCP 08/14/22 documented as of this encounter
--- OUTSIDE RECORDS SUMMARY | 2023-07-21 14:03 | XMS_ITS | Encounter Summary ---
Author Name Unknown [facility] Address [address] [place] [address] Care Team Providers Care Game Preserve Manager Name Role Phone Laureano Bennett MD Primary Care Provider Laureano Bennett MD Unavailable [phone] Reason for Visit * Reason Onset Date Comments No Show Anxiety No Show 09/20/2022 Encounter Details Date Type Department Care Team ([facility] Contact Info) Description 09/20/2022 11:00 AM CDT Office Visit [address] [phone] Yaquelin Fulton, ICE PLATFORM SUPERVISOR [address] [address] No-show for appointment (Primary Dx) Social History Tobacco Use Types [...] as of this encounter Progress Notes * Malik Mcgregor CMA - 09/20/2022 11:00 AM CDT This patient was a no show for this scheduled appointment. documented in this encounter Plan of Treatment Upcoming Encounters Date Type Department Care Team ([facility] Contact Info) Description 07/22/2023 8:45 AM MACHINE ACCOUNTANT Appointment [facility] Maternal Medicine [place] [address] [place] [address] Sheila Jones MD [address] [place] [address] 07/22/2023 9:15 AM MACHINE ACCOUNTANT Office Visit [facility] [place] [address] [place] [phone] Sheila Jones MD [address] [place] [address] 07/26/2023 8:00 AM MACHINE ACCOUNTANT Appointment [facility] [place] [address] [place] [phone] Jennifer Boyer MD [address] [place] [address] Rayshawn Nunez MD [address] [place], [place] [address] 07/26/2023 8:30 AM MACHINE ACCOUNTANT Office Visit [facility] Maternal Medicine [place] [address] [place] [phone] Jennifer Boyer MD [address] [place] [address] Rayshawn Nunez MD [address] [place], [place] [address] 07/29/2023 8:00 AM MACHINE ACCOUNTANT Office Visit [address] [phone] Laureano Bennett MD [address] [place] [address] [phone] 07/29/2023 11:45 AM MACHINE ACCOUNTANT Appointment [facility] Maternal Medicine [facility] [address] [facility] [address] [place] [phone] Jennifer Boyer MD [address] [place] [address] 07/29/2023 12:15 PM MACHINE ACCOUNTANT Office Visit [facility] Maternal Medicine [facility] [address] [facility] [address] [place] [phone] Jennifer Boyer MD [address] [place] [address] 08/05/2023 8:00 AM MACHINE ACCOUNTANT Office Visit [address] [phone] Laureano Bennett MD [address] [place] [address] [phone] 08/23/2023 Hospital Encounter [facility] [address] [place] [phone] Laureano Bennett MD [address] [place] [address] documented as of this encounter Visit Diagnoses Diagnosis No-show for appointment- Primary documented in this encounter Care Teams Game Preserve Manager Relationship Specialty Start Date End Date Laureano Bennett MD [address] [place] [address] PCP - General Family Medicine 07/07/20 Laureano Bennett MD [address] [place] [address] Assigned PCP 08/14/22 documented as of this encounter
--- OUTSIDE RECORDS SUMMARY | 2023-07-21 14:03 | XMS_ITS ---
Author Name Unknown Organization [facility] Address [address] [place] [address] Care Team Providers Care Undercollar Maker Name Role Phone Laureano Bennett MD Primary Care Provider [phone] Laureano Bennett MD Unavailable [phone] Unavailable [phone] Diabetes Self-Management Education Status:Identified (Enrolling) Start date:06/14/2023 Continued Care and Services Coordination
--- OUTSIDE RECORDS SUMMARY | 2023-07-21 14:03 | XMS_ITS | Data Portability ---
Author Name Unknown Address [address] [place] [id number] Phone [phone] Organization [facility], autoContract Address [address] [place] [phone] Assessment Encounter Date Assessment Date Assessment LastModified by Organization Details LastModified Time 08/08/2018 08/08/2018 Healthy woman with a low-risk, valladares in the third trimester. Reassuring maternal and status at today's visit. Not available 08/08/2018 13:05:03 09/12/2018 09/12/2018 Healthy woman with a low-risk, valladares in the third trimester with reassuring maternal and status at today's visit. Not available 09/12/2018 10:12:28 12/31/2019 12/31/2019 risk assessment is: normal and low-risk Not available 12/31/2019 14:13:37 02/11/2020 02/11/2020 risk assessment is: normal and low-risk Not available 02/11/2020 12:45:12 03/11/2020 03/11/2020 risk assessment is: normal and low-risk Not available 03/11/2020 18:13:26 04/01/2020 04/01/2020 risk assessment is: normal and low-risk Not available 04/01/2020 17:41:11 04/07/2020 04/07/2020 risk assessment is: normal and low-risk Not available 04/07/2020 11:43:21 04/22/2020 04/22/2020 risk assessment is: normal and low-risk Not available 04/22/2020 16:47:24 05/06/2020 05/06/2020 risk assessment is: normal and low-risk Not available 05/06/2020 14:09:10 05/07/2020 05/07/2020 risk assessment is: normal and low-risk eurban Not available 05/07/2020 22:56:55 05/20/2020 05/20/2020 risk assessment is: normal and low-risk Not available 05/20/2020 19:17:59 04/21/2021 04/21/2021 risk assessment is: normal and low-risk Not available 04/21/2021 15:53:06 06/17/2021 06/17/2021 risk assessment is: normal and low-risk Not available 06/17/2021 13:25:25 08/13/2021 08/13/2021 risk assessment is: normal and low-risk Not available 08/13/2021 12:27:16 09/10/2021 09/10/2021 risk assessment is: normal and low-risk Not available 09/10/2021 14:03:59 10/15/2021 10/15/2021 risk assessment is: normal and low-risk Not available 10/15/2021 12:25:48 Plan of Treatment Reminders Order Date Submit Date Provider Last Modified By Organization Details Last Modified Time Details Appointments None recorded. Lab CBC w/ diff [address] [facility], [address] [place], [address], 18:37:13 streptococc us group B Ag, vaginal [address] [facility], [address] [place], [address], 23:17:35 CBC w/ diff [address] [facility], [address] [place], [address], 03/02/202 2 13:35:32 treponema pallidum Ab, serum [address] [facility], [address] [place], [address], 2 13:35:32 blood group antibody screen, serum or plasma [address] [facility], [address] [place], [address], 1 12:26:54 abo group + rh type, blood 2020 [facility], [address] [place], [address], 1 13:42:45 CBC w/ diff [address] [facility], [address] [place], [address], 1 13:42:46 urinalysis, reflex culture [address] [facility], [address] [place], [address], 1 13:42:46 CBC w/ diff 2019 020 [facility], [address] [place], [address], 0 13:26:49 streptococc us group B Ag, vaginal [address] [facility], [address] [place], [address], 0 10:35:54 HIV (1+2) Ab screen, serum 2019 020 [facility], [address] [place], [address], 0 15:03:27 blood group antibody screen, serum or plasma 2019 [facility], [address] [place], [address], 0 15:01:51 abo group + rh type, blood 2019 [facility], [address] [place], [address], 0 18:13:11 HBsAg (hepatitis B surface Ag), serum 2019 [facility], [address], [place], [address], 0 15:02:23 hepatitis C Ab, serum 2019 [facility], [address], [place], [address], 0 15:02:34 CBC w/ diff 2019 [facility], [address], [place], [address], 0 15:07:04 CT + NG DNA, PCR, urine 2019 [facility], [address], [place], [address], 0 15:02:57 treponema pallidum Ab, serum 2019 [facility], [address], [place], [address], 0 15:03:07 urinalysis, reflex culture 2019 [facility], [address] [place], [address], 0 12:32:36 rubella Ab, serum [address] [facility], [address], [place], [address], 0 18:12:46 pH, amniotic fluid 2018 019 Not available 9 14:48:59 hepatitis C Ab, serum [address] [facility], [address] [place], [address], 9 18:40:12 CT + NG DNA, PCR, urine [address] [facility], [address] [place], [address], 9 11:18:55 CBC w/ diff [address] [facility], [address] [place], [address], 9 11:18:54 streptococc us group B, culture, genital 2018 [facility], [address] [place], [address], 9 11:03:35 treponema pallidum Ab, serum [address] [facility], [address] [place], [address], 9 11:18:54 type + screen, blood 2018 [facility], [address] [place], [address], 9 08:30:37 Referral None recorded. Procedures None recorded. Surgeries None recorded. Imaging US, obstetric, 1st trimester - Unsure of LMP 2020 021 [facility], [address] [place], [address], 1 14:22:43 US, obstetric, 2nd trimester - 20 week anatomy scan 2019 020 radha [facility], [address] [place], [address], 0 16:08:52 non-stress test 2018 019 Main Office, [address] [place], [address], 9 14:49:00 US, obstetric, limited 2018 019 [place] Main Office, [address] [place], [address], 9 20:50:25 Medication Orders ampicillin 2 gram intravenous solution 2018 019 eurban Not available 0 01:14:05 ampicillin 1 gram intravenous solution 2018 019 [facility]urban Not available 0 01:14:16 Patient TargetsNo targets recorded. Patient Instructions Encounter Date Encounter Id Patient Instructions Last Modified By Organization Details Last Modified Time 10/29/2021 [id number] Yu called e on-call today at 1500 to report very mild labor patterns noticed with no concerns, just a heads up message. She then called back at 1641 to discuss her labor pattern of irregular uterine contractions that was still able to talk through. At this time she also reported having felt less movement yesterday and thinks she's only felt a light kick today but expresses that she's not sure because of the ongoing contractions. At this time I offered for her to come in for a assessment and she declined as she wanted to wait until labor picked up some. We discussed that it can be normal to not notice movement as much during contractions but that if she is concerned about movement she should have baby checked out. She expressed understanding. She then arrived at the center at 1800 for a labor assessment. Cervical exam demonstrates 4cm 0 station with cephalic presentation. However, I could not find heart tones via doppler in office. We attempted to elicit movement and listened for 10 minutes, switching positions to try and find heart tones. At the lower central abdomen I thought I might have heard cord beats but they were so faint I was not adequately able to determine if the heart rate was maternal or . At this point I recommended the parent's present to the nearest Emergency Room with ability to accept labor/delivery patients ([place]), they left via their own vehicle and I called the hospital's labor/delivery salmon and spoke with the charge nurse to let her know what the situation was. Not available 10/29/2021 19:36:26 10/25/2021 [id number] Yu called th is morning to report uterine contractions coming regularly for the last 4 hours and requested a labor assessment. In office she is found to be at 1cm cervical dilation, 50% effaced, -2 station. We discussed latent labor and prodromal labor as well GI irritability and her symptom of diarrhea. She plans to return home, take a single dose of Benadryl and focus on keeping herself well hydrated and rested. She's instructed to call the on-call line with any concerns, a change in symptoms, or signs of progressive labor. Not available 10/25/2021 08:10:00 10/15/2021 [id number] GBS swab collect ed in office today with lab visit scheduled after our appointment - results pending. Reviewed any questions she may have about the labor and - all questions answered. She plans to try and get to the center earlier than last time so she has time to settle in before baby arrives. Not available 10/15/2021 12:30:41 09/10/2021 [id number] Remember to sche dule your lab visit with KadenLesliejose Leal for after our visit at 36 weeks! Not available 09/10/2021 14:12:07 Discussed recomm ended 36 week screenings, she is willing for CBC, GBS, and is eager to have an ultrasound if possible at that time. We also reviewed when/how to call the on-call for labor or concern, when to come in for labor and what to expect for labor//immediate , transport, and routine care with [facility]. Not available 09/10/2021 14:13:38 08/13/2021 [id number] check out [email or web address] for a quick review on kick counts starting in the 3rd trimester Not available 08/13/2021 12:53:25 Glucose spot julissa ck done in office today, results are normal. Waiver signed for declining midpregnancy CBC and initial STI screens. Reveiwed movement monitoring today and discussed jaundice in the . All questions were answered to patient's satisfaction - no concerns today. Next visit scheduled as virtual per patient request. Not available 08/13/2021 12:55:43 06/17/2021 [id number] Discussed labs t o be done at next appointment at approximately 26 weeks of gestation which include gestational diabetes screening, CBC, antibody screen, and RPR. Blood type reviewed and is RH type {{positive* negative} } so Rhogam is {{recommended not recommended*}} in the 3rd trimester. Gestational diabetes testing recommended is the OGTT and she was {{willing unwilling u ndecided seeking alternative screening*}} for this method. If choosing gestational diabetes testing other than OGTT: We covered standard of care and alternatives and benefits and risks. She was instructed that while this screening is not the standard of care, it is preferable to not screening at all. We use a lower reference range for alternative screening methods vs glucola as being at the upper limit of normal with a natural food indicates further investigation is warranted. Instructed to drink a juice such as Naked Juice Green Machine, Red Machine, or Blue Machine approximately 45 minutes before next appointment time so that we can test her blood sugar at 1 hour. Not available 06/17/2021 13:50:40 04/21/2021 [id number] Be sure to check out our video library at [email or web address] These resources can supplement the information you get during your care at [facility]. While we schedule routine visits based on the World Health Organization's recommendations for care, please do remember that if you need additional appointments to go over questions, concerns, or information we will welcome you to schedule additional visits, as needed. While we use a base schedule to be sure we see people routinely, individualization of our care is perfectly fine. We also like to remind clients that is a long experience! During the 9 months of it is not unusual to experience illnesses or injuries that are not associated with and these situations are best handled by your primary care provider. In the event of an urgent or emergent health condition, regardless of if it is related or not, you should either go to the closest Emergency Room or dial 911. Not available 04/21/2021 17:08:42 A tour and orientation session was attended {{for this with previous *}}. Informational links as well as videos are available for all of our clients on our website. This information covers warning signs of health conditions of , nutrition and weight gain guidelines, informed consent information on testing and procedures of . [facility] schedule for routine care discussed. While we follow the World Health Organization schedule for care, we encourage clients to consider their individual needs and if additional visits or phone calls are desired, they can be arranged. Our routine visits occur 1x in the first trimester, 20 weeks, 26 weeks, 30 weeks, 34 weeks, 36 weeks for a long appointment, 38 weeks, and 40 weeks. More visits can be scheduled as needed through the portal or by calling. During the COVID-19 Public Health Emergency aspects of care may be provided via telehealth, as recommended in healthcare to limit exposure. Labs/ultrasounds have been {{ordered* requested from previous provider}}. Genetic testing was discussed and additional information is available in the client handbook. Her plan: {{to screen not screen* undecided on screening}}. At this time, she meets the risk criteria for care at [facility] and is anticipated to have a low-risk //postp artum time. Not available 04/21/2021 17:09:06 06/11/2020 7030 Discussed when t o return to exercise. Gave ok for light activity such as stretching, walking, easy yoga, etc. Regular exercise programs of more demand I recommended waiting 6 weeks. Discussed normal healing process for and s/s of infections and problems with lochia vs. normal. is going well. Family adjustment is going well. Yu's emotional well being is very good. No concerns today. eurban Not available 06/11/2020 19:02:23 05/31/2020 6983 Schedule a virtu al check-in with us for about 1-2 weeks from now. Call if you need anything before that time! eurban Not available 05/31/2020 13:20:50 05/30/2020 6980 Patient able to discharge to home in stable condition. instructions provided in written and verbal form. Plan made for routine and care. Next visit is scheduled with our center. This visit is done between 24-72 hours after , typically and includes screenings as well as maternal check-in. Patient instructed to call our on-call number with any problems or concerns. Mother is able to ambulate to her vehicle without assistance and is leaving in a carseat. Office visit scheduled for 05/31/20 at 11:00am eurban Not available 05/30/2020 15:03:08 05/20/2020 6941 Confirmed that membranes are still intact and that baby is vertex. Cervix is soft and anterior but still closed, amniswab was negative for amniotic fluid and sterile spec exam showed no leaking from os and copious discharge with no odor or iritation noted. Discussed the progress the cervix is making, normal discharge during the last few weeks of , and baby's position which is -2. Yu felt reassured by this exam. Reminded her that she can call if she is concerned again. Not available 05/20/2020 19:22:37 05/07/2020 0081 Yu is doing well. We discussed briefly the chances of being GBS positive again and treatment of that, should it occur. She is feeling healthy and looking foward to her upcoming . I recommended a virtual appointment in a week to go over lab results. eurban Not available 05/07/2020 22:58:41 05/06/2020 1969 Discussed when a nd how to contact the on-call supervisor force adjustment, when to come in for labor, what to expect once admitted at [facility] and expectations for period. Not available 05/07/2020 13:42:40 04/22/2020 6808 [facility] to schedule labs for 05/07 after you meet with Donna Not available 04/22/2020 16:48:12 Discussed recomm ended GBS screening and treatment options for 36 weeks, Yu is willing to do this screening as she has been GBS pos in previous pregnancies. A CBC and RPR are also recommended at this time, she has agreed to the CBC and is declining the RPR. She has been sent the order form her blood pressure cuff and will sign and return it now that her computer is working again. No concerns at this time. Not available 04/22/2020 16:52:17 04/07/2020 6751 Followed up efrain rding vaginal discharge, Yu reports no changes and denies an increase in fluid or other concerning symptoms. She does not yet have a home blood pressure cuff but the order has been signed. Discussed monitoring movements and reviewed diet and exercise. Gave resources for patient education regarding GBS screening in preparation for 34/36 week visits and informed consent discussions. Also discussed positioning, reassured Yu that baby is likely to move to an ideal position and that it would very unlikely for a shoulder presentation with baby staying in the variable position it was in last week, and that we can keep an eye on position as needed. No concerns at this time. Not available 04/07/2020 12:48:55 04/01/2020 6736 Discussed findin gs of exam and amniswab with Yu which reassured her. Explained the limitations of an amniswab and warning signs to watch for and to call with any further concerns. Not available 04/01/2020 17:52:09 03/11/2020 6670 Blood sugar spot check wnl. Discussed mask requirements for labor/. Discussed red raspberry leaf tea during per request and that if she would like to use it she's welcome to. Yu also wanted to discuss what we do in case of a hemorrhage immediate , we went over our protocols and options as well as when a transport might become necessary. Not available 03/11/2020 18:16:01 02/11/2020 6583 gestational diab etes general information Not available 02/11/2020 12:46:02 learning about screening for gestational diabetes Not available 02/11/2020 12:46:02 Discussed labs t o be done at next appointment at approximately 26 weeks of gestation which include gestational diabetes screening, CBC, antibody screen, and RPR. Blood type reviewed and is RH type {{positive* negative} } so Rhogam is {{recommended not recommended*}} in the 3rd trimester. Gestational diabetes testing recommended is the OGTT and she was {{willing unwilling u ndecided seeking alternative screening*}} for this method. If choosing gestational diabetes testing other than OGTT: We covered standard of care and alternatives and benefits and risks. She was instructed that while this screening is not the standard of care, it is preferable to not screening at all. We use a lower reference range for alternative screening methods vs glucola as being at the upper limit of normal with a natural food indicates further investigation is warranted. Instructed to drink a juice such as Naked Juice Green Machine, Red Machine, or Blue Machine approximately 45 minutes before next appointment time so that we can test her blood sugar at 1 hour. Not available 02/11/2020 12:46:01 12/31/2019 6420 Be sure to check out our website at [email or web address] and click on the page for Current Client Information. This page is password protected and that password is: [facility]. On this page you will find our client handbook with many informational handouts pertaining to your , , and time. We also have recorded videos covering some of the most common topics/question. These resources can supplement the information you get during your care at [facility]. While we schedule routine visits based on the World Health Organization's recommendations for care, please do remember that if you need additional appointments to go over questions, concerns, or information we will welcome you to schedule additional visits, as needed. While we use a base schedule to be sure we see people routinely, individualization of our care is perfectly fine. We also like to remind clients that is a long experience! During the 9 months of it is not unusual to experience illnesses or injuries that are not associated with and these situations are best handled by your primary care provider. In the event of an urgent or emergent health condition, regardless of if it is related or not, you should either go to the closest Emergency Room or dial 911. Not available 12/31/2019 13:51:34 A tour and orientation session was attended {{for this with previous *}}. A handbook and informational links as well as videos are available for all of our clients on our website. This information covers warning signs of health conditions of , nutrition and weight gain guidelines, informed consent information on testing and procedures of . [facility] schedule for routine care discussed. While we follow the World Health Organization schedule for care, we encourage clients to consider their individual needs and if additional visits or phone calls are desired, they can be arranged. Our routine visits occur 1x in the first trimester, 20 weeks, 26 weeks, 30 weeks, 34 weeks, 36 weeks for a long appointment, 38 weeks, and 40 weeks. More visits can be scheduled as needed through the portal or by calling. During the COVID-19 Public Health Emergency aspects of care may be provided via telehealth, as recommended in healthcare to limit exposure. Labs/ultrasounds have been {{ordered* requested from previous provider}}. Genetic testing was discussed and additional information is available in the client handbook. Her plan: {{to screen not screen* undecided on screening}}. At this time, she meets the risk criteria for care at [facility] and is anticipated to have a low-risk //postp artum time. Not available 12/31/2019 14:14:12 11/06/2018 4844 Great to see you today, Yu! Please follow-up with your primary care provider for any concerns and well-woman care, as needed. Not available 11/06/2018 13:31:21 is going well; no discomfort or pain Their older son had some behaviors early on but they are adjusting well as a family. Feeling good emotionally; struggled early on feeling stressed with family adjustment. Stopped bleeding at 3 weeks; still some intermittent dark brown spotting. No pain or discomfort with stools/voids. No incontience. Has started doing some pelvic floor exercises. Still taking vitamins. Good appetite and plenty of fluid intake. Encouraged to slowly resume normal activity level. Not available 11/06/2018 13:32:08 10/04/2018 [id number] Your homevisit i s scheduled for tomorrow, 10/05/18. The visit will include a full maternal and exam as well as the metabolic screen, and congenital heart defect screen. In additional to verbally reviewing and discharge instructions, they were also sent home with you in writing. Please call with any concerning symptoms as needed. Not available 10/04/2018 06:46:44 10/03/2018 4679 Take first dose of castor oil immediately; I'm fine with you heading home quickly to get your son situated with the person who is watching them and to grab your labor bags and then return immediately to the center for monitoring and to start IV abx. Not available 10/03/2018 17:32:55 Yu is here t skye for a routine visit. She reports some minimal water discharge; denies feeling gushes or trickles. Yu noted discaharge yesterday but reports that in the morning it smelled like urine; then yesterday afternoon she noted some more clear discharge that didn't have a strong urine smell. Very minimal clear fluid noted on panty-liner pad at exam today; ph paper was inconclusive due to minimal amount of fluid so recommendation was given to do a sterile speculum exam to confirm or r/o rupture. Upon sterile speculum exam, normal milky white vaginal discharge was noted; no clear fluid noted coming from cervical ox however the amnicator swab clearly indicated a pH level consistent with amniotic fluid. Yu denies recent intercourse. Shortly after we finished the exam, Yu noted a large gush of fluid that more fully wet her pantyliner more than she had previously experienced. Based on visualization of cervix, 1-2cm dilated at time of exam. Valorie is not having any contractions. We reviewed the risk of prolonged SROM, especially in light of her GBS positive status. Yu is requesting to head home quickly to grab her bags, and get her son settled with his care provider for labor. I recommended we do a NST due to uncertain time of SROM prior to letting her head home; NST was reactive. We discussed the importance of starting a natural induction protocol as soon as possible due to the risks of prolonged SROM and GBS pos status. Natural inducation protocol started at 11:20 am with first dose of castor oil. Not available 10/03/2018 17:32:18 09/26/2018 [id number] Good to see you today Yu. We will see you back in 1 week. Call if you have any questions or concerns. Not available 09/26/2018 10:41:42 Planning on jessika marcus risk-based management of GBS in labor depending on ROM time. No circ if boy. Still evaluating Vibratory Pile Driver. Maybe Landon Romero. Feeling some pelvic pressures and moises del rosario. Having Clementine as bird sitter. Reviewed when to call in labor and what to bring. Reviewed 36wk labs. Not available 09/26/2018 10:35:16 09/12/2018 [id number] Great to see you today, Yu! Please head to the lab following today's visit for your final set of labwork. Return for your next visit in 2 weeks. Not available 09/12/2018 12:19:24 Yu is here t skye for her 36 week visit. She reports noticing patterns of movements. Decreased appetite, but still getting adequate nutrition and good hydration. Has hired Katalina for their bird sitter. Yu is planning to head to the lab either today or at her next visit. GBS swab was collected in-office today. Discussed HSV lab that has been added to final lab panel due to the options of benny at [facility]. Reviewed NB care and screenings. Yu is planning to decline the screening panel for baby and will consent to signing the refusal form. Not available 09/12/2018 12:21:08 08/29/2018 [id number] Good to see you today Yu! We will see you back in 2 weeks. Call if you have any questions or concers. Not available 08/29/2018 12:19:15 Planning to do G BS & 36wk labs at next visit. Baby is head down today; confirmed with bedside US. Feeling lots of movement. Has not yet chosen a pediatric care provider; gave recommendation of [facility]. Have decided to hire Katalina as their bird sitter. Early US report was not included in records that we received; Yu stated that it was done at a resource center. Yu is going to send us the date of that US along with any other measurements or information from it. Not available 08/29/2018 13:17:03 08/08/2018 [id number] Wonderful to gianni t you today, Yu! Please return for your next visit in 3 week. Please contact the supervisor force adjustment with questions or concerns, as needed either through your health portal or via phone call. Not available 08/08/2018 13:05:53 Yu is here t skye for an initial visit with our practice, accompanied by her son. She is transferring into our care from a [facility] practice at 31.1 weeks gestation. Yu reports she had multiple visits with them that included all routine labs and early ultrasound and a 20 week ultrsound; we have not yet received records but had her sign a release to request them. We are basing her [place] on stated dates based on her early dating ultrasound and will confirm upon receival and review of records. Yu reports she had nausea/vomiting in early that has since resloved. She reports continued fatigue. We instructed Yu to read about GBS screening in her client handbook and we will discuss further at her next visit. Baby was in a breech presentation at today's visit. Gave some Spinning Babies positions to encourage vertex presentation. We will reassess at 34wk visit. We discussed diet and supplements and modifiable risk factors. Yu was advised to continue moderate physical activity. Client will report unusual headaches, visual disturbances, pelvic pain or cramping, vaginal bleeding, rupture of membranes, extreme swelling in hands or face, diminished urine volume, any prolonged illness or infection, or persistent symptoms of labor. Yu has attended a tour/orientation session and was futher orientated to the practice today. We collected an informed consent agreement and provided a client handbook with many informational handouts. We explained how the call system works and how and when to contact the supervisor force adjustment for urgent or routine needs. Schedule for visits discussed and the client would prefer to meet on the WHO schedule for care. Labs have been requested from previous provider. At this time, she meets the risk criteria for care at [facility] and is anticipated to have a low-risk //postp artum time. Not available 08/08/2018 20:44:44 Reason for Referral None Reported. Results Created Date Observation Date Name Description Value Unit Range Abnormal Flag LastModifiedBy Organization Detail LastModifiedTime 09/13/19 19 09/12/2018 strep tococ cus group B, cultu re, genit al gbs pos positive Not Available [facility] [address], [place], [address], 09/14/2018 10:53:55 01/18/20 20 01/18/2020 CBC w/ diff CBC normal Not Available [facility] [address] [place], [address], 03/11/2020 15:06:33 05/07/20 20 05/07/2020 strep tococ cus group B Ag, vagin al gbs pos positive Not Available [facility] [address] [place], [address], 05/14/2020 10:34:58 05/07/20 20 05/07/2020 strep tococ cus group B Ag, vagin al CBC WNL normal Not Available [facility] [address] [place], [address], 05/14/2020 10:34:58 05/07/20 20 05/07/2020 strep tococ cus group B Ag, vagin al gbs pos positive Not Available [facility] [address] [place], [address], 05/14/2020 10:42:38 05/07/20 20 05/07/2020 strep tococ cus group B Ag, vagin al CBC normal Not Available [facility] [address] [place], [address], 05/14/2020 10:42:38 09/05/19 19 03/21/2018 US, obste tric, 1st trime ster No observ ation record ed. Not Available 09/04/2018 12:59:12 10/30/19 20 10/29/2019 US, obste tric, 1st trime ster No observ ation record ed. [facility] [address] [facility] [place], [address], 11/15/2019 15:42:10 01/21/20 20 01/18/2020 US, obste tric, 2nd trime ster No observ ation record ed. [facility] [address] [place], [address], 02/13/2020 16:08:31 05/06/20 21 05/05/2021 US, obste tric, 1st trime ster No observ ation record ed. [facility] [address] [place], [address], 05/15/2021 11:32:48 06/19/20 21 06/17/2021 US, obste tric, 2nd trime ster No observ ation record ed. [address] [facility] [address] [place], [address], 08/13/2021 12:16:59 10/17/19 22 10/15/2021 US, obste tric, 3rd trime ster No observ ation record ed. [address] [facility] [address] [place], [address], 11/03/2021 14:51:29 Result Notes Documentation Provider Name and Address Organization Details Recorded Time Cbc W/ Diff : CBC WITH AUTO DIFFERENTIAL (01/18/2020 2:47 PM CDT): WHITE BLOOD COUNT 7.4 4.5 - 11.0 thou/cu [facility] RED BLOOD COUNT 4.21 4.20 - 5.40 mil/cu [facility] HEMOGLOBIN 12.7 12.0 - 16.0 g/dL [facility] HEMATOCRIT 37.7 36.0 - 48.0 % [facility] MCV 90 80 - 100 fL [facility] MCH 30.2 27.0 - 31.0 pg [facility] MCHC 33.7 32.0 - 36.0 g/dL [facility] RDW 13.1 11.0 - 15.0 % [facility] PLATELET COUNT 203 142 - 424 thou/cu [facility] MPV 9.5 6.5 - 11.0 fL [facility] NEUTROPHILS 75.1 37.0 - 80.0 % [facility] LYMPHOCYTES 18.4 10.0 - 50.0 % [facility] MONOCYTES 4.9 % [facility] EOSINOPHILS 0.9 % [facility] BASOPHILS 0.3 % [facility] ABSOLUTE NEUTROPHILS 5.6 1.7 - 7.0 thou/cu [facility] ABSOLUTE LYMPHOCYTES 1.4 0.9 - 2.9 ou/cu [facility] ABSOLUTE MONOCYTES 0.4 <0.9 ou/cu [facility] ABSOLUTE EOSINOPHILS 0.1 <0.5 ou/cu [facility] ABSOLUTE BASOPHILS 0.0 <0.3 ou/cu [facility] Specimen Blood - Blood specimen (specimen) Donna Rae CPM, [place], [address], [facility] 03/11/2020 15:07:57 Problems Name Status Onset Date Resolution Date Notes Provider Name and Address Organization Details Recorded Time Completed 07/31/19 19 10/09/2019 Donna Rae CPM, [place], [address], [facility] 05/04/2022 18:54:58 Completed 10/09/19 20 12/12/2019 Donna Rae CPM, [place], [address], [facility] 05/04/2022 18:54:58 Completed 03/16/20 20 04/21/2021 Donna Rae CPM, [place], [address], [facility] 05/04/2022 18:54:58 state Completed 05/31/20 20 09/24/2021 Donna Rae CPM, [place], [address], [facility] 09/24/2021 02:45:00 state Completed 05/31/20 20 RAF TORO, IGOR, [address], [place], [address], [facility] 04/21/2021 10:48:22 Completed 04/21/20 21 05/04/2022 Donna Rae CPM, [address] [place], [address], [facility] 05/04/2022 18:54:58 Problem Notes None recorded. Procedures Surgical History Date Name Laterality Status Provider Name and Address Organization Details Recorded Time 05/30/2020 Stages & Baby 2 completed Donna Rae CPM, [address], [place], [address], [facility] 05/30/2020 15:01:59 10/04/2018 [facility] 06:38:17 Imaging Results Imaging Date Name Status LastModified by Organiz ation Details LastModified Time 03/21/2018 US, obstetric, 1st trimester completed Information not available 09/04/2018 12:59:12 10/29/2019 US, obstetric, 1st trimester completed [facility] [address] [place], [address], 11/15/2019 15:42:10 01/18/2020 US, obstetric, 2nd trimester completed [facility] [address] [place], [address], 02/13/2020 16:08:31 05/05/2021 US, obstetric, 1st trimester completed [facility] [address] [place], [address], 05/15/2021 11:32:48 06/17/2021 US, obstetric, 2nd trimester completed [address] [facility] [address] [place], [address], 08/13/2021 12:16:59 10/15/2021 US, obstetric, 3rd trimester completed [address] [facility] [address], [place], [address], 11/03/2021 14:51:29 Procedure Notes None recorded. Medical Equipment None Reported. Allergies No known drug allergies Medications Name Sig Start Date Stop Date Status Note LastModified by Organization Details LastModified Time benzonatate 200 mg capsule active Not Available Not Available Not Available ampicillin 1 gram intravenous solution Inject 1 g by intraveno us route. 03/16 completed Not Available Not Available Not Available ampicillin 2 gram intravenous solution Inject 2 g by intraveno us route. 03/16 completed Not Available Not Available Not Available 2017 active Not Available Not Available Not Avai lable Mucus Relief ER 600 mg tablet, extended release active Not Available Not Available Not Available Alice-C active Not Available Not Availa ble Not Available omega 3 183.3 mg-dha 75 mg-epa 91.6 mg-fish oil 306 mg capsule Take by oral route. active Not Available Not Available No t Available Vitals Date Recorded Body weight Body mass index (BMI) Body height Respiratory rate Heart rate Body temperature Systolic blood pressure Diastolic blood pressure Provider Name and Address Organization Details Last Updated DateTime 9 62764.0 0209 g 23.2 kg/m2 175.26 cm 14 /min 90 /min 98.1 [degF] 125 mm[Hg] 78 mm[Hg] [facility] 10:47:03 Date Recorded Body height Respiratory rate Heart rate Body temperature Systolic blood pressure Diastolic blood pressure Provider Name and Address Organization Details Last Updated DateTime 9 175.26 cm 14 /min 90 /min 97.4 [degF] 124 mm[Hg] 60 mm[Hg] [facility] 9 11:25:08 Date Recorded Body height Body mass index (BMI) Body weight Respiratory rate Heart rate Body temperature Systolic blood pressure Diastolic blood pressure Provider Name and Address Organization Details Last Updated DateTime 9 175.26 cm 23.5 kg/m2 28088.1 8683 g 14 /min 80 /min 98.2 [degF] 120 mm[Hg] 70 mm[Hg] [facility] 09:57:12 Date Recorded Body height Heart rate Body temperature Respiratory rate Body mass index (BMI) Body weight Systolic blood pressure Diastolic blood pressure Provider Name and Address Organization Details Last Updated DateTime 175.26 cm 70 /min 98.3 [degF] 14 /min 23.8 kg/m2 51593.3 7157 g 124 mm[Hg] 84 mm[Hg] [facility] 9 10:18:31 Date Recorded Body height Body mass index (BMI) Body weight Body temperature Heart rate Respiratory rate Systolic blood pressure Diastolic blood pressure Provider Name and Address Organization Details Last Updated DateTime 9 175.26 cm 23.9 kg/m2 65095.9 6394 g 98.3 [degF] 80 /min 14 /min 110 mm[Hg] 62 mm[Hg] [facility] 9 10:50:13 Date Recorded Body height Heart rate Body temperature Respiratory rate Systolic blood pressure Diastolic blood pressure Provider Name and Address Organization Details Last Updated DateTime 9 175.26 cm 80 /min 98.2 [degF] 14 /min 112 mm[Hg] 64 mm[Hg] [facility] 9 06:39:31 Date Recorded Body height Heart rate Body temperature Systolic blood pressure Diastolic blood pressure Provider Name and Address Organization Details Last Updated DateTime 10/05/2018 175.26 cm 80 /min 98.6 [degF] 110 mm[Hg] 62 mm[Hg] Donna Rae, [facility], [address] [place], [address], [facility] 9 16:38:17 Date Recorded Body height Body mass index (BMI) Respiratory rate Heart rate Body temperature Systolic blood pressure Diastolic blood pressure Provider Name and Address Organization Details Last Updated DateTime 9 175.26 cm 22.6 kg/m2 14 /min 80 /min 97.8 [degF] 118 mm[Hg] 70 mm[Hg] Gaye song, [facility] 9 10:57:52 Date Recorded Body weight Provider Name an d Address Organization Details Last Updated DateTime 11/06/2018 24254.02120 g Donna Rae, CPM, [address] [place], [place], , [facility] 10/09/2019 19:12:51 Date Recorded Body height Body mass index (BMI) Body weight Provider Name and Address Organization Details Last Updated DateTime 12/31/2019 175.26 cm 22.4 kg/m2 90072.63315 g RAF TORO, CPM, [address] [place], [place], , [facility] 12/31/2019 14:10:49 Date Recorded Body height Provider Name an d Address Organization Details Last Updated DateTime 02/11/2020 175.26 cm RAF TORO CPM, LM [address] [place], [place], , [facility] 02/11/2020 11:34:03 Date Recorded Body height Heart rate Systolic blood pressure Diastolic blood pressure Provider Name and Address Organization Details Last Updated DateTime 03/11/2020 175.26 cm 85 /min 122 mm[Hg] 76 mm[Hg] RAF TORO CPM, LM [address] [place], [place], , [facility] 03/11/2020 17:30:07 Date Recorded Body height Heart rate Body temperature Systolic blood pressure Diastolic blood pressure Provider Name and Address Organization Details Last Updated DateTime 04/01/2020 175.26 cm 80 /min 97.9 [degF] 129 mm[Hg] 80 mm[Hg] RAF TORO CPM, LM [address] [place], [place], , [facility] 0 17:39:34 Date Recorded Body height Provider Name an d Address Organization Details Last Updated DateTime 04/07/2020 175.26 cm RAF TORO CPM, LM [address] [place], [place], , [facility] 04/07/2020 11:56:21 Date Recorded Body height Heart rate Respiratory rate Systolic blood pressure Diastolic blood pressure Provider Name and Address Organization Details Last Updated DateTime 05/07/2020 175.26 cm 90 /min 14 /min 118 mm[Hg] 74 mm[Hg] Donna Rae, CPM, [address] [place], [address], [facility] 0 22:52:32 Date Recorded Body height Heart rate Systolic blood pressure Diastolic blood pressure Provider Name and Address Organization Details Last Updated DateTime 05/20/2020 175.26 cm 90.01 /min 120 mm[Hg] 75 mm[Hg] RAF TORO CPM, [address] [place], [address] , [facility] 05/20/2020 19:15:13 Date Recorded Body height Respiratory rate Body temperature Systolic blood pressure Diastolic blood pressure Provider Name and Address Organization Details Last Updated DateTime 0 175.26 cm 16 /min 97.4 [degF] 120 mm[Hg] 75 mm[Hg] Donna Rae, IGOR, LM [address] [place], [address], [facility] 0 13:16:18 Date Recorded Body height Provider Name an d Address Organization Details Last Updated DateTime 06/11/2020 175.26 cm Donna Rae [facility], [address] [place], [address], [facility] 06/11/2020 18:56:05 Date Recorded Body height Body mass index (BMI) Body weight Heart rate Systolic blood pressure Diastolic blood pressure Provider Name and Address Organization Details Last Updated DateTime 1 175.26 cm 21.9 kg/m2 03575.6 7076 g 90 /min 117 mm[Hg] 78 mm[Hg] RAF TORO CPM, [address] [place], [address], [facility] 1 17:09:39 Date Recorded Body height Heart rate Systolic blood pressure Diastolic blood pressure Provider Name and Address Organization Details Last Updated DateTime 06/17/2021 175.26 cm 85 /min 112 mm[Hg] 72 mm[Hg] RAF TORO, IGOR, [address] [place], [address] , [facility] 06/17/2021 13:50:56 Date Recorded Body height Heart rate Body temperature Systolic blood pressure Diastolic blood pressure Provider Name and Address Organization Details Last Updated DateTime 09/10/2021 175.26 cm 80 /min 97.2 [degF] 107 mm[Hg] 68 mm[Hg] RAF TORO, CPM, [address] [place], [address], [facility] 14:03:35 Date Recorded Body height Heart rate Systolic blood pressure Diastolic blood pressure Provider Name and Address Organization Details Last Updated DateTime 10/15/2021 175.26 cm 90 /min 126 mm[Hg] 76 mm[Hg] RAF TORO CPM, [address] [place], [address] , [facility] 10/15/2021 12:24:38 Date Recorded Body height Respiratory rate Heart rate Body temperature Systolic blood pressure Diastolic blood pressure Provider Name and Address Organization Details Last Updated DateTime 175.26 cm 16 /min 64.99 /min 98.5 [degF] 118 mm[Hg] 79 mm[Hg] RAF TORO, IGOR, [address] [place], [address], [facility] 08:03:36 Social History Question Answer Notes LastModified by Organizat ion Details LastModified Time Tobacco Smoking Status Never Smoker Not Available [facility] 04/22/2020 03:13:44 Do You Have An Advance Directive? No [id number] Information not available 04/22/2020 What Is Your Level Of Alcohol Consumption? None [id number] Information not available 04/22/2020 If You Are , What Was Your Level Of Alcohol Consumption Prior To ? Occasional [id number] Information not available 04/22/2020 Plan No Information no t available 08/13/2021 Is Blood Transfusion Acceptable In An Emergency? Yes [id number] Information not available 04/22/2020 What Is Your Level Of Caffeine Consumption? Moderate [id number] Information not available 04/22/2020 Live With Cats/exposure To Cat Litter No Information not available 08/13/2021 Are You Currently Employed? No [id number] Information not available 04/22/2020 What Type Of Diet Are You Following? REGULAR [id number] Information not available 04/22/2020 Do You Or Have You Ever Used E-cigarettes Or Vape? Never Used Electronic Cigarettes Information not available 08/13/2021 Education 4 Year College Informatio n not available 08/13/2021 Have There Been Any Changes To Your Family Or Social Situation? No [id number] Information no t available 04/22/2020 Illicit Drugs Pre- None Information not available 08/13/2021 Live Alone Or With Others? Alone Information not available 08/13/2021 Feels Safe In The Home? Yes Information not available 04/21/2021 Marital Status Informatio n not available 08/13/2021 What Was The Date Of Your Most Recent Tobacco Screening? 12/31/2019 Information not available 08/13/2021 How Many Children Do You Have? 3 Information not available 04/21/2021 What Is Your Relationship Status? Information not available 04/21/2021 Seat Belts Used Routinely Yes Information not available 08/13/2021 Are You Sexually Active? Yes [id number] Information not available 04/22/2020 Do You Have Smoke And Carbon Monoxide Detectors In Your Home? Yes [id number] Information not available 04/22/2020 Are You Passively Exposed To Smoke? No Information no t available 08/08/2018 Do You Or Have You Ever Used Smokeless Tobacco? Never Used Smokeless Tobacco Information not available 08/13/2021 How Much Tobacco Do You Smoke? No [id number] Information not available 04/22/2020 Smoking Pre- No Information not available 08/13/2021 General Stress Level Low Information not available 08/13/2021 Do You Use Sunscreen Routinely? No [id number] Information not available 04/22/2020 How Many Years Have You Smoked Tobacco? 0 Information not available 05/20/2020 Do You Have Symptoms Associated With Zika Virus (fever, Rash, Joint Pain, Or Conjunctivitis)? No Information not available 08/13/2021 Have You Recently (within The Last 12 Weeks, Or During A Current ) Traveled To Or Lived In A Zika-affected Area? No Information not available 08/13/2021 Do You Have Any Dietary Restrictions? No Information not available 08/13/2021 Sex: Female Functional Status Question Answer Note LastModified by Organization D etails LastModified Time What is your exercise level? Heavy [id number] Information not available 04/22/2020 Mental Status None recorded. Family History Relationship Description Onset Age of this Age Resolved Age Notes Father No current problems or disability Mother No current problems or disability Medical History Condition Response Allergies (Food, seasonal, environmental ) N Other N Blood Transfusion N Drug/Latex Allergies/Reactions N Breast Cancer N Lung Disease N Dermatologic Disorders N Defects or Inherited Disease N Breast Problem N Gestational Diabetes N Hematologic disorders N Anesthesia Complications N History of STI N Deep Vein Thrombosis N Polycystic ovary syndrome N Anxiety Disorder N Autoimmune disease N Arthritis N Polyps N Infertility N Acid Reflux (GERD) N History of abnormal pap N Cancer N Stroke N Varicosities N Neurologic/Epilepsy N Endometriosis N High Cholesterol N Fibromyalgia N Headaches N Kidney Disease N Heart Problems N Thyroid Problems N Kidney or Bladder Problems N GI Problems N Acne N Eating Disorder N Anemia N Art (IVF or FET) N Psychiatric Illness N Diabetes N Ovarian Cancer N Pulmonary (TB, Asthma) N Hepatitis/Liver Disease N Eczema N Abuse/Domestic Violence N Trauma/Violence N Depression/ depression N Heart Disease N Pre-Eclampsia N Hypertension N Osteoporosis N Thrombophilias N Gynecological History Statement/Question Response Flow Moderate On BCP's at Conception? N STIs/STDs N Duration of Flow (days) 5 Age at Menarche 13 Age at First Child 21 Frequency of Cycle (Q days) Y Menses Monthly N N LMP Unknown Obstetrics History GPAL:G 4 P 3 0 0 3 Type Value Multiple Births 0 Full Term 3 Induced 0 Spontaneous 0 Premature 0 Living 3 Ectopics 0 Total 4 Past Encounters Encounter ID Performer Location Encounter Start Date Encounter Closed Date Diagnosis/Indication [id number] Office [address] [id number] 08/08/2018 10:35:32 08/11/2018 01:02:51 Routine care Gestation period, 31 weeks Fatigue during Breech presentation 4558 Gaye Manuelosa Main Office [address] [place] [address] 08/29/2018 10:57:53 09/18/2018 13:29:03 Routine care Gestation period, 34 weeks 4605 Gaye Manuelosa Main Office [address] [place] [address] 09/12/2018 09:23:49 09/18/2018 13:32:39 Normal Routine care 4656 Gaye Portillo Main Office [place] [address] 09/26/2018 10:01:56 10/16/2018 20:55:49 Routine care Gestation period, 38 weeks 4679 Gaye Manuelosa Main Office [place] [address] 10/03/2018 10:25:06 10/16/2018 20:58:17 Gestation period, 39 weeks Routine care Amniotic fluid leaking Group B St[facility] [address] [place] [address] 10/04/2018 06:18:47 10/04/2018 07:40:57 Normal Single live Gestation period, 39 weeks Group B Streptococcus carrier 4698 Donna Rae CPM, HOME [address] [place] [address] 10/05/2018 16:37:36 10/17/2018 00:19:07 care management 4844 Gaye Portillo Main Office [facility] [place] [address] 11/06/2018 10:26:10 11/11/2018 20:52:02 care 6420 RAF TORO CPM, LM Main Office [facility] [place] [id number] 12/31/2019 13:32:23 12/31/2019 17:00:21 Routine care 6583 RAF TORO CPM, LM Main Office [facility] [place] [address] 02/11/2020 11:33:06 02/11/2020 12:48:27 Second trimester Routine care 6670 RAFFLORENCE TORO, CPM, LM Main Office [address] [place] [address] 03/11/2020 17:27:37 03/11/2020 18:17:52 Routine care 6736 RAFFLORENCE TORO, CPM, LM Main Office [address] [place] [address] 04/01/2020 17:03:17 04/01/2020 18:02:23 6751 RAF HAZEL, CPM, LM Main Office [address] [address] 04/07/2020 11:53:53 04/07/2020 12:50:06 Routine care 6808 RAFFLORENCE TORO, CPM, LM Main Office [place] [address] 04/22/2020 12:36:22 04/22/2020 16:52:34 Normal 6869 RAF TORO, CPM, LM Main Office [address] [place] [address] 05/06/2020 14:07:01 05/07/2020 13:42:55 6881 Donna Rae CPM, LM Main Office [facility] [place] [address] 05/07/2020 22:49:56 05/10/2020 08:36:34 6941 RAF TORO, CPM, LM Main Office [facility] [place] [address] 05/20/2020 19:14:31 05/20/2020 19:27:22 Routine care 6980 Donna Rae CPM, LM CENTER [place] [address] 05/30/2020 14:46:52 06/01/2020 17:25:33 Normal Single live Gestation period, 39 weeks 6983 Donna Rae CPM, LM Main Office [place] [address] 05/31/2020 13:14:00 05/31/2020 13:21:46 care 7030 Donna Rae CPM, LM Main Office [address] [place] [address] 06/11/2020 18:55:40 06/11/2020 19:44:21 care 8443 RAF TORO CPM, LM Main Office [address] [place] [address] 04/21/2021 15:25:38 04/25/2021 22:50:30 Routine care 8719 RAF TORO CPM, LM Main Office [address] [place] [address] 06/17/2021 13:03:46 06/30/2021 17:45:02 Routine care Second trimester Normal 8978 RAF TORO CPM, LM Main Office [address] [place] [address] 08/13/2021 12:07:53 12/27/2021 00:59:41 Routine care 9161 RAF TORO CPM, LM Main Office [address] [place] [address] 09/10/2021 11:52:43 09/29/2021 14:58:37 Routine care Normal 9305 RAF TORO CPM, LM Main Office [facility] [place] [address] 10/15/2021 12:02:35 12/27/2021 02:46:47 Routine care 9324 RAF TORO CPM, LM Main Office [facility] [place] [address] 10/25/2021 08:02:05 12/27/2021 01:59:03 9339 RAF TORO CPM, LM Main Office [facility] [place] [address] 10/29/2021 19:25:49 12/27/2021 01:05:06 Health Concerns Section Related Observation LastModified by Organization Detai ls LastModified Time None Recorded Concern Status LastModified by Organization Details LastModified Time None Recorded Advance Directives Directive N: Payers Encounter Date Sequence Insurance Name Policy Number Policy Whitney Covered Member ID Whitney Member ID Guarantor Name 10/29/2021 1 [place] [employer] Yu Tupy [id number] Yu Tupy 10/25/2021 1 [place] Yu Tupy [id number] Yu Tupy 10/15/2021 1 [place] Yu Tupy [id number] Yu Tupy 09/10/2021 1 [place] [employer] Yu Tupy [id number] Yu Tupy 08/13/2021 1 [place] Yu Tupy [id number] Yu Tupy 06/17/2021 1 [place] [employer] Yu Tupy [id number] Yu Tupy 04/21/2021 1 [place] [employer] Yu Tupy [id number] Yu Tupy 06/11/2020 1 [place] [employer] Yu Tupy [id number] Yu Tupy 05/31/2020 1 [place] [employer] Yu Tupy [id number] Yu Tupy 05/30/2020 1 [place] [employer] Yu Tupy [id number] Yu Tupy 05/20/2020 1 [place] [employer] Yu Tupy [id number] Yu Tupy 05/07/2020 1 [place] [employer] Yu Tupy [id number] Yu Tupy 05/06/2020 1 [place] [employer] Yu Tupy [id number] Yu Tupy 04/22/2020 1 [place] [employer] Yu Tupy [id number] Yu Tupy 04/07/2020 1 [place] [employer] Yu Tupy [id number] Yu Tupy 04/01/2020 1 [place] [employer] Yu Tupy [id number] Yu Tupy 03/11/2020 1 [place] [employer] Yu Tupy [id number] Yu Tupy 02/11/2020 1 [place] [employer] Yu Tupy [id number] Yu Tupy 12/31/2019 1 [place] [employer] Yu Tupy [id number] Yu Tupy 11/06/2018 1 [place] [employer] Yu Tupy [id number] Yu Tupy 10/05/2018 1 [place] [employer] Yu Tupy [id number] Yu Tupy 10/04/2018 1 [place] [employer] Yu Tupy [id number] Yu Tupy 10/03/2018 1 [place] [employer] Yu Tupy [id number] Yu Tupy 09/26/2018 1 [place]) [employer] Yu Tupy [id number] Yu Tupy 09/12/2018 1 [place]) [employer] Yu Tupy [id number] Yu Tupy 08/29/2018 1 [employer]) [employer] Yu Tupy [id number] Yu Tupy 08/08/2018 1 [place]) [employer] Yu Tupy [id number] Yu Renee Notes Date Note Type Note Provider Name and Address Organization Details Recorded Time 08/08/2018 text/html HPI Notes: Elva santa is a 23 year old [id number] presents today for an initial visit with our practice. She is transferring into our care from the clinic in [place] . Yu stated they based her DALLAS of 10/09/18 on her LMP of 01/11/18 and did not adjust for cycle length. She states she had an early US that confirmed DALLAS. We have not yet received Yu's medical records from her previous provider but will adjust or confirm DALLAS upon receival and review of records. [facility] 20:50:06 08/29/2018 text/html HPI Notes: Jaqueline santa is a 23 year old at 34wk1d who presents today for a routine visit. Baby was breech at her previous PNV so she is anxious to find out baby's presentation today. [facility] 08/29/2018 13:17:47 09/12/2018 text/html HPI Notes: Jaqueline santa is a 23 year old at 36.1 weeks with an DALLAS of 10/09/18 who presents today for a routine visit. [facility] 09/12/2018 12:22:50 09/26/2018 text/html HPI Notes: Jaqueline santa is a 23 year old at 38wk1d with an DALLAS of 10/09/17 who presents today for a routine visit. [facility] 09/26/2018 10:52:12 10/03/2018 text/html HPI Notes: Jaqueline santa is a 23 year old at 39wk1d with an DALLAS of 10/09/18 who presents today for a routine visit. She reports she has noticed some water discharge so we will assess for SROM. [facility] 10/03/2018 17:39:21 10/04/2018 text/html HPI Notes: Jaqueline santa is a 23 year old with an DALLAS of 10/09/18 who presents today at 39wk1d in latent labor. She is being admitted for an anticipated with a valladares vertex baby. SROM confirmed at 1000 on 10/03/18. [facility] 10/04/2018 06:46:51 10/05/2018 text/html HPI Notes: Reported by patient. : breastfeeds 8 times in 24 hours; for 10minutes per side; feeding at both breasts per feeding Diapers: 2 wet diapers in 24 hours; 6 black stools in 24 hours Supplement: none Delivery Type: vaginal Breast Surgery: none Pre- health problems/medication s: none problems: none Current Medications: none Prior : yes Visit Reported by patient. Onset/Timing: date of delivery:; 10/04/18 Quality: Context: complications of : none; complications of labor: none; complications: none; feeding choice: breast; good support from partner/family Associated Symptoms: no abnormal bleeding; no pelvic pain; no constipation; no fecal incontinence; no dysuria; no urinary incontinence; no fever; no problems; no mastitis; normal mood Donna Rae, [facility], LM [address] [place], [address], [facility] 10/05/2018 16:45:29 11/06/2018 text/html HPI Notes: Jaqueline santa is a 23 year old who had a at [facility] on 10/04/18. She has had an uncomplicated and presents today for her final PP visit. [facility] 11/06/2018 13:32:14 12/31/2019 text/html HPI Notes: John montenegro presents for an initial visit with our practice. She has not been seen by another provider for this . Last menstrual period is unknown. She is a G 3 P 2 Her DALLAS is 06/02/2020 based on Ultrasound. She has taken a home test with a positive result. RAF TORO, [facility], LM [address] [place], [address], [facility] 12/31/2019 14:14:23 02/11/2020 text/html HPI Notes: John montenegro is a 24 year old, . Today she presents for a routine visit at 24 gestation. RAF TORO CPM, LM [address], [place], [address], [facility] 02/11/2020 12:48:18 03/11/2020 text/html HPI Notes: John montenegro is a 24 year old, . Today she presents for a routine visit at 28.1 gestation. RAF TORO CPM, LM [address], [place], [address], [facility] 03/11/2020 18:17:43 04/01/2020 text/html HPI Notes: John montenegro is a 24 year old, . Today she presents for a cervical exam to possibly detect amniotic fluid at 31.1 gestation. Yu called the on-call line reporting concerns of a possible leak and agreed to come in for evaluation. RAF TORO CPM, LM [address], [place], [address], [facility] 04/01/2020 18:02:15 04/07/2020 text/html HPI Notes: John montenegro is a 24 year old, . Today she presents for a routine visit at 32 gestation. RAF TORO CPM, LM [address], [place], [address], [facility] 04/07/2020 12:49:58 04/22/2020 text/html HPI Notes: John montenegro is a 24 year old, . Today she presents for a routine visit at 34.1 gestation. RAF TORO CPM, LM [address] [place], [address], [facility] 04/22/2020 16:52:26 05/06/2020 text/html HPI Notes: John montenegro is a 24 year old, . Today she presents for a routine visit at 36.1 gestation. RAF TORO CPM, LM [address], [place], [address], [facility] 05/07/2020 13:42:47 05/07/2020 text/html HPI Notes: John montenegro is a 24 year old, . Today she presents for a routine visit at 36.2 wks gestation. Today's in-office visit is to confirm position and collection of labs, including GBS screening. Donna Rae CPM, LM [address] [place], [address], [facility] 05/07/2020 22:59:22 05/20/2020 text/html HPI Notes: John montenegro is a 24 year old, . Today she presents for pelvic exam and to confirm membranes are still intact. She is 38.1 wks gestation. RAF TORO CPM, [facility] [facility], [place], [address], [facility] 05/20/2020 19:27:16 05/30/2020 text/html HPI Notes: John montenegro is a 24 year old presenting in active labor/ 2nd stage of labor. Risk status has been reviewed and patient does meet risk criteria for admission to [facility] for delivery. Intake vitals are within normal and normal delivery is anticipated. presentation is vertex and position is ELPIDIO. EFW in lbs is: 8. Patient is well nourished and hydrated on arrival. She is accompanied by her , Kennedy, and her bird sitter, Katalina. Donna Rae CPM, [facility] [place], [address], [facility] 05/30/2020 15:03:12 05/31/2020 text/html HPI Notes: Visit Reported by patient. Onset/Timing: date of delivery:; 05/30/20 Quality: Context: complications of : none; complications of labor: none; complications: none; feeding choice: breast; good support from partner/family; No laceration with delivery. Associated Symptoms: no pelvic pain; no constipation; no fecal incontinence; no dysuria; no urinary incontinence; no fever; no problems; no mastitis; normal mood; Normal lochia Donna Rae CPM, LM [address] [place], [address], [facility] 05/31/2020 13:21:22 06/11/2020 text/html HPI Notes: Visit Reported by patient. Onset/Timing: date of delivery:; 05/30/2020 Quality: Context: complications of : none; complications of labor: none; complications: none; feeding choice: breast; good support from partner/family Associated Symptoms: no abnormal bleeding; no vaginal discharge; no pelvic pain; no constipation; no fecal incontinence; no dysuria; no urinary incontinence; no fever; no problems; no mastitis; normal mood; Lochia wnl Yu is 12 days . Today's visit is a virtual visit. Donna Rae CPM, LM [address] [place], [address], [facility] 06/11/2020 19:03:00 04/21/2021 text/html HPI Notes: John montenegro presents for an initial visit with our practice. She has not been seen by another provider for this . Last menstrual period was unkown. She is a G 4 P 3 Her DALLAS is 11-05-2021 based on date of suspected conception. She has taken a home test with a positive result on or around 03/04/21. RAF TORO CPM, LM [address] [place], [address], [facility] 04/21/2021 17:12:59 06/17/2021 text/html HPI Notes: John montenegro is a 25 year old, . Today she presents for a routine in-office visit at 19.6 wks gestation. RAF TORO CPM, LM [address] [place], [address], [facility] 06/17/2021 13:53:56 08/13/2021 text/html HPI Notes: John montenegro is a 26 year old, . Today she presents for a routine in-office visit at 28 wks gestation. RAF TORO CPM, LM [address] [place], [address], [facility] 08/13/2021 12:55:49 09/10/2021 text/html HPI Notes: John montenegro is a 26 year old, . Today she presents for a routine in-office visit at 32 wks gestation. RAF TORO CPM, LM [address] [place], [address], [facility] 09/10/2021 14:16:29 10/15/2021 text/html HPI Notes: John montenegro is a 26 year old, . Today she presents for a routine in-office visit at 37.0 wks gestation. RAF TORO CPM, LM [address] [place], [address], [facility] 10/15/2021 12:31:00 10/25/2021 text/html HPI Notes: John montenegro is a 26 yo presenting for labor assessment today due to regular uterine contractions since 0200. RAF TORO CPM, LM [address] [place], [address], [facility] 10/25/2021 08:13:28 OBGyn Episode Ob Episode Information Episode Created Date Number of Fetuses Patient Bloodtype Patient rh Status Prepregnancy Weight lbs Domestic Partner Domestic Partner Phone Father Name Vibratory Pile Driver Status 07/31/19 19 1 A Positive 137 Kennedy Tupy CLOSED Fetus Data First Name Last Name Admitted to NICU Weight (g) Sex Living Outcome Pediatric Complications Fetus ID Race Codes Race Delivery Type Ignati us Tupy false 3713.78 45 M Full Term 1762 [id number] White [place] Calculation Initial Dallas Date Initial Exam Date Initial Exam Provider Initial Ultrasound Date Last Menstrual Period Date Ultra Sound Weeks Gestation 10/18/2018 07/31/2018 03/21/2018 01/11/2018 11 Eighteen To Twenty Week Dallas Update Ultra Sound Date Fundal Height At Umbil Quickening Date Ultra Sound Latest Weeks Gestation Final [place] Confirmed By Final [place] Confirmed Date Final [place] Date Ultra Sound Latest Days Gestation 05/30/20 18 20 09/04/2018 10/10/19 19 3 Pre-kaye Flowsheet Flowsheet Date 08/08/2018 Cruz Score Blood Edema Fundus Height Fundus Units Glucose Ketones Leukocytes Nitrite Labor Signs Protein Cervic Dilation Cervic Effacement Cervic Station none 31 cm [place] Type Weight in lbs BP Diastolic BP Location Tested BP Systolic BP Type 78 125 sitting Fetus Heart Rate Present A 140 Present Fetus Movement A Yes Comments Baby was breech today based on palpation and confirmed with in-office ultrasound Flowsheet Date 08/29/2018 Cruz Score Blood Edema Fundus Height Fundus Units Glucose Ketones Leukocytes Nitrite Labor Signs Protein Cervic Dilation Cervic Effacement Cervic Station 33 cm none Type Weight in lbs BP Diastolic BP Location Tested BP Systolic BP Type 60 124 sitting Fetus Heart Rate Present A 150 Present Fetus Movement A Yes Comments ELPIDIO Flowsheet Date 09/12/2018 Cruz Score Blood Edema Fundus Height Fundus Units Glucose Ketones Leukocytes Nitrite Labor Signs Protein Cervic Dilation Cervic Effacement Cervic Station none 36 cm none Type Weight in lbs BP Diastolic BP Location Tested BP Systolic BP Type 70 120 sitting Fetus Heart Rate Present A 150 Present Fetus Movement A Yes Comments Flowsheet Date 09/26/2018 Cruz Score Blood Edema Fundus Height Fundus Units Glucose Ketones Leukocytes Nitrite Labor Signs Protein Cervic Dilation Cervic Effacement Cervic Station none 37 cm [facility] [place] Type Weight in lbs BP Diastolic BP Location Tested BP Systolic BP Type 84 124 sitting Fetus Heart Rate Present A 130-140s Present Fetus Movement A Yes Comments Feeling occasional pressure and [place] contractions. Lots of movement.LOTEFW: 6.5lbs Flowsheet Date 10/03/2018 Crzu Score Blood Edema Fundus Height Fundus Units Glucose Ketones Leukocytes Nitrite Labor Signs Protein Cervic Dilation Cervic Effacement Cervic Station none 38 cm 1cm Type Weight in lbs BP Diastolic BP Location Tested BP Systolic BP Type 62 110 sitting Fetus Heart Rate Present A 118-156 Present Fetus Movement A No Comments Flowsheet Date 10/04/2018 Cruz Score Blood Edema Fundus Height Fundus Units Glucose Ketones Leukocytes Nitrite Labor Signs Protein Cervic Dilation Cervic Effacement Cervic Station Type Weight in lbs BP Diastolic BP Location Tested BP Systolic BP Type 64 112 sitting Fetus Heart Rate Present Fetus Movement Comments Flowsheet Date 10/05/2018 Cruz Score Blood Edema Fundus Height Fundus Units Glucose Ketones Leukocytes Nitrite Labor Signs Protein Cervic Dilation Cervic Effacement Cervic Station Type Weight in lbs BP Diastolic BP Location Tested BP Systolic BP Type 62 110 Fetus Heart Rate Present Fetus Movement Comments Flowsheet Date 11/06/2018 Cruz Score Blood Edema Fundus Height Fundus Units Glucose Ketones Leukocytes Nitrite Labor Signs Protein Cervic Dilation Cervic Effacement Cervic Station Type Weight in lbs BP Diastolic BP Location Tested BP Systolic BP Type 70 118 sitting Fetus Heart Rate Present Fetus Movement Comments Menstrual History Last Menstrual Date Menses Monthly On Bcp Conception Prior Menses Frequency Hcg Plus Date Menarche Onset Age 0701/11/2018 false 35 12 Genetic Screening And Infection History Question Response Note Patient's Age Will Be 35 Years Or Older At Estim ated Date of Delivery false Thalassemia (Turkmen, Mozambican, Mediterranean, Or Background): MCV < 80 false Neural Tube Defect (Meningomyelocele, Spina Bifi da, Or Anencephaly) false Congenital Heart Defect false Down Syndrome false Moe-Sachs (eg, Bahai, Cajun, Burmese-Chadian) f alse Brett Disease false Sickle Cell Disease Or Trait () false Hemophilia Or Other Blood Disorders false Muscular Dystrophy false Cystic Fibrosis false [place] Chorea false Intellectual Disability/Autism false If Yes, Was Person Tested For Fragile X? false Other Inherited Genetic Or Chromosomal Disorder false Maternal Metabolic Disorder (eg, Type 1 Diabetes , PKU) false Patient Or Baby's Father Had A Child With Defects Not Listed Above false Recurrent Loss, Or A Stillbirth false Medications (including Suppl ements, Vitamins, Herbs, OTC Drugs), Illicit/Recreational Drugs, Alcohol false If Yes, Agent(s) And Strength/Dosage false Any Other Genetic History false Live With Someone With TB Or Exposed To TB false Patient Or Partner Has History Of Genital Herpes false Rash Or Viral Illness Since Last Menstrual Perio d false History Of STD, Gonorrhea, Chlamydia, HPV, Syphi lis false Other Infection History false Prior GBS-infected child false History of HIV false History of Hepatitis false Hemoglobinopathy Or Carrier false Other Structural Defect false Recent Travel History Outside of Country false Mental Retardation/Autism false Plans and Education First Trimester Discussed Date Discussion Item Discussion Note Discuss ed By 08/08/2018 HIV and other routine tests 08/08/2018 Anticipated course of care 08/08/2018 Exercise 08/08/2018 Risk factors identif ied by history 08/08/2018 Nutrition counseling ; special diet; dietary precautions (mercury, listeriosis) 08/08/2018 Weight gain counseling sbarb [email or web address] 08/08/2018 Dental care Second Trimester Discussed Date Discussion Item Discussion Note Discuss ed By Third Trimester Discussed Date Discussion Item Discussion Note Discuss ed By 09/12/2018 Family medical leave or disability forms None 09/12/2018 depression sbarbo sa2 08/29/2018 28 week labs ordered - GDM, RPR, CBC, antibody screen for RH neg 08/29/2018 28 wks- Rhogam given to RH negative N/A 08/29/2018 28 weeks- discuss plans, recommend LLL meetings Milk Mamas 08/29/2018 30-32wk GDM results reviewed, diet diary collected for women with positive screen 08/29/2018 30-32wk, discuss circumcision No circ 08/29/2018 34 wk- collect informed consent N/A 09/26/2018 34 wk- Spectrum of p ain management in labor 09/26/2018 36 wk- when to call in labor 09/26/2018 38 wk- role of midwi fe vs. bird sitter here and in a transfer, plan for siblings 09/12/2018 Trial of labor after (TOLAC) counseling N/A 08/29/2018 Finished CBE None 09/26/2018 30-32 wk- discuss fa alessandro participation including sibling preparation and policies of the cente 08/29/2018 30-32 wk nutrition a nd exercise review Done today 09/26/2018 34wk- review the call system 08/29/2018 34 wk- recommend ins tallation of carseat and carseat safety 09/26/2018 34 wk- plan? p ositions for labor and 09/26/2018 37 wk- review labs 09/26/2018 37 wk- discuss car s eat. Installed? 09/26/2018 What to bring to the center in labor 08/29/2018 34wk- discuss GBS te sting and treatment options Planning to do GBS screen at next visit 09/26/2018 37wk- confirm circum cision choice No Circ 09/26/2018 37 wk- review plan sba [email or web address] 09/26/2018 38 wk- normal newbor n behavior, , instructions 08/29/2018 Intimate partner violence sb [email or web address] 08/29/2018 08/29/2018 movement monitoring sb [email or web address] 08/29/2018 Ordered breastpump Given milk mamas sbarb [email or web address] 08/29/2018 30-32 wk- Pediatrici an name collected [facility]? 09/26/2018 36 wk- ordered final labs, signed refusals for those not consenting 09/12/2018 education (n ewborn screening, jaundice, SIDS/safe sleeping position, car seat) 08/29/2018 Hired a gaviota Darden 09/26/2018 Discussed plan sbarbos a2 08/29/2018 28 weeks- recommend Tdap and flu shot Declines 08/29/2018 28 weeks- plan for c hildbirth education? None 09/26/2018 36 wk- reminder of ashley daugherty for admission to center, short stay PP, food for labor 09/26/2018 38 wk- contraception plan Delivery Information Delivery Date Delivery Type Labor Anesthesia Weeks Gestation Incision Type Labor Labor Length Hrs Delivered By Post Complications Tubal Sterilization Discharge Date Comments 9 Induce d None 39.2 false 10 S. Portillo, CPM, LM None 10/04/2018 Natural induction with castor oil due to prolonged ROM Discharge Information Feeding Method Contraceptive Method Maternal HG B and HCT Levels Breast Ob Episode Information Episode Created Date Number of Fetuses Patient Bloodtype Patient rh Status Prepregnancy Weight lbs Domestic Partner Domestic Partner Phone Father Name Vibratory Pile Driver Status 10/09/19 20 1 A Positive 145 [place] CLOSED Fetus Data First Name Last Name Admitted to NICU Weight (g) Sex Living Outcome Pediatric Complications Fetus ID Race Codes Race Delivery Type Tupy false 3883.88 15 M true Full Term [id number] [id number] White Problems Problem Notes Problem Name Start Date End Date Resolution Snomed Code Not e state 05/31/2020 [id number] [place] Calculation Initial [place] Date Initial Exam Date Initial Exam Provider Initial Ultrasound Date Last Menstrual Period Date Ultra Sound Weeks Gestation 06/02/2020 12/31/2019 10/29/2019 09/03/2019 9 Eighteen To Twenty Week [place] Update Ultra Sound Date Fundal Height At Umbil Quickening Date Ultra Sound Latest Weeks Gestation Final [place] Confirmed By Final [place] Confirmed Date Final [place] Date Ultra Sound Latest Days Gestation 01/18/20 20 21 eurban 03/16/2020 06/02/20 20 0 Pre- Flowsheet Flowsheet Date 12/31/2019 Cruz Score Blood Edema Fundus Height Fundus Units Glucose Ketones Leukocytes Nitrite Labor Signs Protein Cervic Dilation Cervic Effacement Cervic Station Type Weight in lbs BP Diastolic BP Location Tested BP Systolic BP Type Fetus Heart Rate Present Fetus Movement A Yes Comments Yu is doing well, has hood d her questions answered today and labs ordered. Home kit will be sent out and she will schedule her next visit with us when she has an updated calendar for herself. Flowsheet Date 02/11/2020 Cruz Score Blood Edema Fundus Height Fundus Units Glucose Ketones Leukocytes Nitrite Labor Signs Protein Cervic Dilation Cervic Effacement Cervic Station Type Weight in lbs BP Diastolic BP Location Tested BP Systolic BP Type Fetus Heart Rate Present Fetus Movement A Yes Comments Doesn't have kit yet, explai georgie we are in the process of changing how these are being done. Yu is wanting alternative screening for GTT after an informed consent discussion regarding her options for this test. Flowsheet Date 03/11/2020 Cruz Score Blood Edema Fundus Height Fundus Units Glucose Ketones Leukocytes Nitrite Labor Signs Protein Cervic Dilation Cervic Effacement Cervic Station 29 Type Weight in lbs BP Diastolic BP Location Tested BP Systolic BP Type 76 122 Fetus Heart Rate Present A 150 Fetus Movement A Yes Comments blood sugar spot check was 1 22, gave Yu fetoscope and measuring tape for home use, explained their uses. Flowsheet Date 04/01/2020 Cruz Score Blood Edema Fundus Height Fundus Units Glucose Ketones Leukocytes Nitrite Labor Signs Protein Cervic Dilation Cervic Effacement Cervic Station 32 none 0cm 0% -4 Type Weight in lbs BP Diastolic BP Location Tested BP Systolic BP Type 80 129 Fetus Heart Rate Present A 155 Fetus Movement A Yes Comments Variable position with head at left hip. Flowsheet Date 04/07/2020 Cruz Score Blood Edema Fundus Height Fundus Units Glucose Ketones Leukocytes Nitrite Labor Signs Protein Cervic Dilation Cervic Effacement Cervic Station 31 none Type Weight in lbs BP Diastolic BP Location Tested BP Systolic BP Type Fetus Heart Rate Present Fetus Movement A Yes Comments Waiting on bp cuff still, no vitals today. Did fundal height during visit with instruction. Reports feeling like baby has a growth spurt recently, thinks baby is still diagonal, reassured her that this is of no concern at this time. Flowsheet Date 04/22/2020 Cruz Score Blood Edema Fundus Height Fundus Units Glucose Ketones Leukocytes Nitrite Labor Signs Protein Cervic Dilation Cervic Effacement Cervic Station 33 cm Type Weight in lbs BP Diastolic BP Location Tested BP Systolic BP Type Fetus Heart Rate Present Fetus Movement A Yes Comments no changes in discharge, no longer thinks its amniotic fluid but will continue to monitor. Flowsheet Date 05/06/2020 Cruz Score Blood Edema Fundus Height Fundus Units Glucose Ketones Leukocytes Nitrite Labor Signs Protein Cervic Dilation Cervic Effacement Cervic Station Type Weight in lbs BP Diastolic BP Location Tested BP Systolic BP Type Fetus Heart Rate Present Fetus Movement Comments Flowsheet Date 05/07/2020 Cruz Score Blood Edema Fundus Height Fundus Units Glucose Ketones Leukocytes Nitrite Labor Signs Protein Cervic Dilation Cervic Effacement Cervic Station none 35 cm none Type Weight in lbs BP Diastolic BP Location Tested BP Systolic BP Type 74 118 Fetus Heart Rate Present A 140s Fetus Movement A Yes Comments ROP postion. EFW=6.5lbs. Flowsheet Date 05/20/2020 Cruz Score Blood Edema Fundus Height Fundus Units Glucose Ketones Leukocytes Nitrite Labor Signs Protein Cervic Dilation Cervic Effacement Cervic Station 1cm 50% -2 Type Weight in lbs BP Diastolic BP Location Tested BP Systolic BP Type 75 120 Fetus Heart Rate Present A 135-155 Fetus Movement A Yes Comments LOT presentation, clear acce leration noted during ausculation of FHT's in response to movement. Cervix is very soft, anterior, but tightly closed at 1 cm - not stretchy. Normal appearing discharge in copious amounts noted at os with no obvious leaking seen. amniswab and nitrazine paper were both negative. Flowsheet Date 05/30/2020 Cruz Score Blood Edema Fundus Height Fundus Units Glucose Ketones Leukocytes Nitrite Labor Signs Protein Cervic Dilation Cervic Effacement Cervic Station Type Weight in lbs BP Diastolic BP Location Tested BP Systolic BP Type Fetus Heart Rate Present Fetus Movement Comments Flowsheet Date 05/31/2020 Cruz Score Blood Edema Fundus Height Fundus Units Glucose Ketones Leukocytes Nitrite Labor Signs Protein Cervic Dilation Cervic Effacement Cervic Station Type Weight in lbs BP Diastolic BP Location Tested BP Systolic BP Type 75 120 Fetus Heart Rate Present Fetus Movement Comments Flowsheet Date 06/11/2020 Cruz Score Blood Edema Fundus Height Fundus Units Glucose Ketones Leukocytes Nitrite Labor Signs Protein Cervic Dilation Cervic Effacement Cervic Station Type Weight in lbs BP Diastolic BP Location Tested BP Systolic BP Type Fetus Heart Rate Present Fetus Movement Comments Menstrual History Last Menstrual Date Menses Monthly On Bcp Conception Prior Menses Frequency Hcg Plus Date Menarche Onset Age 0309/03/2019 true false 13 Genetic Screening And Infection History Question Response Note Patient's Age Will Be 35 Years Or Older At Estim ated Date of Delivery false Thalassemia (Turkmen, Mozambican, Mediterranean, Or Background): MCV < 80 false Neural Tube Defect (Meningomyelocele, Spina Bifi da, Or Anencephaly) false Congenital Heart Defect false Down Syndrome false Moe-Sachs (eg, Bahai, Cajun, Burmese-Chadian) f alse Brett Disease false Sickle Cell Disease Or Trait () false Hemophilia Or Other Blood Disorders false Muscular Dystrophy false Cystic Fibrosis false [place] false Intellectual Disability/Autism false If Yes, Was Person Tested For Fragile X? false Other Inherited Genetic Or Chromosomal Disorder false Maternal Metabolic Disorder (eg, Type 1 Diabetes , PKU) false Patient Or Baby's Father Had A Child With Defects Not Listed Above false Recurrent Loss, Or A Stillbirth false Medications (including Suppl ements, Vitamins, Herbs, OTC Drugs), Illicit/Recreational Drugs, Alcohol false If Yes, Agent(s) And Strength/Dosage false Any Other Genetic History false Live With Someone With TB Or Exposed To TB false Patient Or Partner Has History Of Genital Herpes false Rash Or Viral Illness Since Last Menstrual Perio d false History Of STD, Gonorrhea, Chlamydia, HPV, Syphi lis false Other Infection History false Prior GBS-infected child false History of HIV false History of Hepatitis false Hemoglobinopathy Or Carrier false Other Structural Defect false Recent Travel History Outside of Country false Mental Retardation/Autism false Plans and Education First Trimester Discussed Date Discussion Item Discussion Note Discuss ed By 12/31/2019 HIV and other routine tests 12/31/2019 Anticipated course of care 12/31/2019 Indications for ultrasonography 04/07/2020 Nutrition assessment/discussion 12/31/2019 Exercise 12/31/2019 Choosing where to give 12/31/2019 Book of info given and explained 12/31/2019 Risk factors identif ied by history 12/31/2019 Screening for aneuploidy rha [email or web address] 12/31/2019 Insurance informatio n collected and informed consent signed 12/31/2019 Health records requested and discussed 12/31/2019 Discuss the ways to contact the oncall supervisor force adjustment 12/31/2019 Nutrition counseling ; special diet; dietary precautions (mercury, listeriosis) 12/31/2019 Weight gain counseling rhaze l3 12/31/2019 Dental care 12/31/2019 Has participated in a tour/orientation 12/31/2019 Social History discu ssed including any CPS hx 12/31/2019 Second Trimester Discussed Date Discussion Item Discussion Note Discuss ed By 04/07/2020 Referral made to Marie Soliz planned to be Katalina Collins 04/07/2020 Nutrition and exerci se review 04/07/2020 Discuss lab orders: OGTT, CBC, RPR, antibody screen, schedule Rhogam visit for Rh neg 04/07/2020 Selecting a care provider Unsure but possibly planning on [facility] pediatricians Third Trimester Discussed Date Discussion Item Discussion Note Discuss ed By 04/07/2020 30-32wk GDM results reviewed, diet diary collected for women with positive screen 05/07/2020 36wk-Siblings and gu ests during labor and eurban 04/07/2020 30-32 wk nutrition and exercise review 05/07/2020 36 wks- bird sitter? Any q uestions about mask policies at [facility] for family? Lithoduplicator Operator is Katalina eurban 05/06/2020 34wk- discuss GBS te sting and treatment options 05/07/2020 36wk- and s igned informed consent, if applicable N/A eurban 04/07/2020 Intimate partner violence rh [email or web address] 04/07/2020 movement monitoring rh [email or web address] 05/07/2020 36 wk- ordered final labs, signed refusals for those not consenting eurban Delivery Information Delivery Date Delivery Type Labor Anesthesia Weeks Gestation Incision Type Labor Labor Length Hrs Delivered By Post Complications Tubal Sterilization Discharge Date Comments 0 Sponta neous None 39.4 false 6 Urban, Donna LM None 05/30/2020 Discharge Information Feeding Method Contraceptive Method Maternal HG B and HCT Levels Breast Ob Episode Information Episode Created Date Number of Fetuses Patient Bloodtype Patient rh Status Prepregnancy Weight lbs Domestic Partner Domestic Partner Phone Father Name Vibratory Pile Driver Status 08/30/19 19 1 CLOSED Fetus Data First Name Last Name Admitted to NICU Weight (g) Sex Living Outcome Pediatric Complications Fetus ID Race Codes Race Delivery Type 3316.66 4704 M Full Term 1818 [place] Calculation Initial [place] Date Initial Exam Date Initial Exam Provider Initial Ultrasound Date Last Menstrual Period Date Ultra Sound Weeks Gestation 0 Eighteen To Twenty Week [place] Update Ultra Sound Date Fundal Height At Umbil Quickening Date Ultra Sound Latest Weeks Gestation Final [place] Confirmed By Final [place] Confirmed Date Final [place] Date Ultra Sound Latest Days Gestation 0 0 Menstrual History Last Menstrual Date Menses Monthly On Bcp Conception Prior Menses Frequency Hcg Plus Date Menarche Onset Age Delivery Information Delivery Date Delivery Type Labor Anesthesia Weeks Gestation Incision Type Labor Labor Length Hrs Delivered By Post Complications Tubal Sterilization Discharge Date Comments 7 None 39 false 8 Discharge Information Feeding Method Contraceptive Method Maternal HG B and HCT Levels Ob Episode Information Episode Created Date Number of Fetuses Patient Bloodtype Patient rh Status Prepregnancy Weight lbs Domestic Partner Domestic Partner Phone Father Name Vibratory Pile Driver Status 04/21/20 21 1 A Positive Analy Renee Dr. Ruano at [place] CLOSED Fetus Data First Name Last Name Admitted to NICU Weight (g) Sex Living Outcome Pediatric Complications Fetus ID Race Codes Race Delivery Type Yannick Renee 4620.96 85 M Demise 3373 [id number] White [place] Calculation Initial [place] Date Initial Exam Date Initial Exam Provider Initial Ultrasound Date Last Menstrual Period Date Ultra Sound Weeks Gestation 11/05/2021 04/21/2021 05/05/2021 14 Eighteen To Twenty Week [place] Update Ultra Sound Date Fundal Height At Umbil Quickening Date Ultra Sound Latest Weeks Gestation Final [place] Confirmed By Final [place] Confirmed Date Final [place] Date Ultra Sound Latest Days Gestation 06/17/20 21 20 eurban 09/24/2021 11/06/19 22 0 Pre- Flowsheet Flowsheet Date 04/21/2021 Cruz Score Blood Edema Fundus Height Fundus Units Glucose Ketones Leukocytes Nitrite Labor Signs Protein Cervic Dilation Cervic Effacement Cervic Station Type Weight in lbs BP Diastolic BP Location Tested BP Systolic BP Type 78 117 Fetus Heart Rate Present Fetus Movement Comments Too early to detect fht by amber aguilera. Discussed early ultrasound, orders sent, she is unsure she wants this or not. Fundus is below pubic bone at this time. Flowsheet Date 06/17/2021 Cruz Score Blood Edema Fundus Height Fundus Units Glucose Ketones Leukocytes Nitrite Labor Signs Protein Cervic Dilation Cervic Effacement Cervic Station 20 cm Other (see comments ) Type Weight in lbs BP Diastolic BP Location Tested BP Systolic BP Type 72 112 Fetus Heart Rate Present A 155 Fetus Movement A Yes Comments c/o pelvic floor discomfort. She is planning to see her pelvic floor physical therapist and we discussed comfort measures. Flowsheet Date 08/13/2021 Cruz Score Blood Edema Fundus Height Fundus Units Glucose Ketones Leukocytes Nitrite Labor Signs Protein Cervic Dilation Cervic Effacement Cervic Station 27 cm Type Weight in lbs BP Diastolic BP Location Tested BP Systolic BP Type Fetus Heart Rate Present A 145 Fetus Movement A Yes Comments transverse by palpation Flowsheet Date 09/10/2021 Cruz Score Blood Edema Fundus Height Fundus Units Glucose Ketones Leukocytes Nitrite Labor Signs Protein Cervic Dilation Cervic Effacement Cervic Station 32 cm Other (see comments ) Type Weight in lbs BP Diastolic BP Location Tested BP Systolic BP Type 68 107 Fetus Heart Rate Present A 160 Fetus Movement A Yes Comments LOT by palpation today, not at all engaged in pelvis with lots of room still to move about. Yu reports a drastic increase in cervical discharge, similar to what she experienced with her previous pregnancies. We reviewed the difference between discharge and leaking fluid as this is an ongoing anxiety for her. Flowsheet Date 10/15/2021 Cruz Score Blood Edema Fundus Height Fundus Units Glucose Ketones Leukocytes Nitrite Labor Signs Protein Cervic Dilation Cervic Effacement Cervic Station 38 cm Type Weight in lbs BP Diastolic BP Location Tested BP Systolic BP Type 76 126 Fetus Heart Rate Present A 150 Fetus Movement A Yes Comments LOT by palpation - ultrasoun d to confirm scheduled for after visit, results pending. Flowsheet Date 10/25/2021 Cruz Score Blood Edema Fundus Height Fundus Units Glucose Ketones Leukocytes Nitrite Labor Signs Protein Cervic Dilation Cervic Effacement Cervic Station Uterine Contract ions 1cm 50% -2 Type Weight in lbs BP Diastolic BP Location Tested BP Systolic BP Type 79 118 Fetus Heart Rate Present A 155 Fetus Movement A Yes Comments Recovering from recent illne ss with a lingering cough still present - no fever present. Her abdominal muscles are quite sore from the coughing. Her mild diarrhea has no obvious cause and may be due to early labor. She states her baby is moving excessively inside - heart rate is reassuring in office today. Confirmed cephalic presentation via cervical exam. Flowsheet Date 10/29/2021 Cruz Score Blood Edema Fundus Height Fundus Units Glucose Ketones Leukocytes Nitrite Labor Signs Protein Cervic Dilation Cervic Effacement Cervic Station Type Weight in lbs BP Diastolic BP Location Tested BP Systolic BP Type Fetus Heart Rate Present Fetus Movement Comments Menstrual History Last Menstrual Date Menses Monthly On Bcp Conception Prior Menses Frequency Hcg Plus Date Menarche Onset Age false false 13 Genetic Screening And Infection History Question Response Note Patient's Age Will Be 35 Years Or Older At Estim ated Date of Delivery false Thalassemia (Turkmen, Mozambican, Mediterranean, Or Background): MCV < 80 false Neural Tube Defect (Meningomyelocele, Spina Bifi da, Or Anencephaly) false Congenital Heart Defect false Down Syndrome false Moe-Sachs (eg, Bahai, Cajun, Burmese-Chadian) f alse Brett Disease false Sickle Cell Disease Or Trait () false Hemophilia Or Other Blood Disorders false Muscular Dystrophy false Cystic Fibrosis false [place] false Intellectual Disability/Autism false If Yes, Was Person Tested For Fragile X? false Other Inherited Genetic Or Chromosomal Disorder false Maternal Metabolic Disorder (eg, Type 1 Diabetes , PKU) false Patient Or Baby's Father Had A Child With Defects Not Listed Above false Recurrent Loss, Or A Stillbirth false Medications (including Suppl ements, Vitamins, Herbs, OTC Drugs), Illicit/Recreational Drugs, Alcohol false If Yes, Agent(s) And Strength/Dosage false Any Other Genetic History false Live With Someone With TB Or Exposed To TB false Patient Or Partner Has History Of Genital Herpes false Rash Or Viral Illness Since Last Menstrual Perio d false History Of STD, Gonorrhea, Chlamydia, HPV, Syphi lis false Other Infection History false Prior GBS-infected child false History of HIV false History of Hepatitis false Hemoglobinopathy Or Carrier false Other Structural Defect false Recent Travel History Outside of Country false Mental Retardation/Autism false Plans and Education First Trimester Discussed Date Discussion Item Discussion Note Discuss ed By 04/21/2021 HIV and other routin e tests 04/21/2021 Anticipated course o f care 04/21/2021 Indications for ultrasonography 04/21/2021 Nutrition assessment/discussion 04/21/2021 Exercise still running 4x a week [email or web address] [email or web address] 04/21/2021 Choosing where to give 04/21/2021 Book of info given and explained 04/21/2021 Intimate Partner Anjali mattce Screen/discussion 04/21/2021 Risk factors identif ied by history 04/21/2021 Screening for aneuploidy rha [email or web address] 04/21/2021 Insurance informatio n collected and informed consent signed 04/21/2021 Health records reque sted and discussed 04/21/2021 Discuss the ways to contact the oncall supervisor force adjustment 04/21/2021 Nutrition counseling ; special diet; dietary precautions (mercury, listeriosis) 04/21/2021 Weight gain counseling rhaze l3 04/21/2021 Dental care 04/21/2021 Has participated in a tour/orientation 04/21/2021 Social History discu ssed including any CPS hx 04/21/2021 Second Trimester Discussed Date Discussion Item Discussion Note Discuss ed By 06/17/2021 Nutrition and exercise review 06/17/2021 Discuss lab orders: OGTT, CBC, RPR, antibody screen, schedule Rhogam visit for Rh neg 08/13/2021 Selecting a care provider Third Trimester Discussed Date Discussion Item Discussion Note Discuss ed By 09/10/2021 Family medical leave or disability forms 09/10/2021 30-32wk GDM results reviewed, diet diary collected for women with positive screen 10/15/2021 36 wk- when to call in labor 10/15/2021 36wk-Siblings and gu ests during labor and 08/13/2021 30-32 wk nutrition and exercise review 09/10/2021 34 wk- recommend ins tallation of carseat and carseat safety 10/15/2021 36 wks- bird sitter? Any q uestions about mask policies at [facility] for family? Katalina Shukla 10/15/2021 36 wks- Discuss plac enta and note if family has plans for it. 09/10/2021 34wk- discuss GBS te sting and treatment options 36wk- and s igned informed consent, if applicable N/A 08/13/2021 movement monitoring rh [email or web address] 10/15/2021 36 wk- ordered final labs, signed refusals for those not consenting 10/15/2021 [place] education (n ewborn screening, jaundice, SIDS/safe sleeping position, car seat) 10/15/2021 36 wk- reminder of ashley daugherty for admission to center, short stay PP, food for labor 10/15/2021 36 wk: Transfer kathie finch and roles of provider in transfer/locations of transfers Delivery Information Delivery Date Delivery Type Labor Anesthesia Weeks Gestation Incision Type Labor Labor Length Hrs Delivered By Post Complications Tubal Sterilization Discharge Date Comments 2 Marta Betancourt-Ep idural 39.[address] Alford 10/31/2021 Discharge Information Feeding Method Contraceptive Method Maternal HG B and HCT Levels
--- OUTSIDE RECORDS SUMMARY | 2023-07-21 14:03 | XMS_ITS | Encounter Summary ---
Author Name Unknown [facility] Address [address] [place] [address] Care Team Providers Care Well Drill Operator Name Role Phone Laureano Bennett MD Primary Care Provider [phone] Laureano Bennett MD Unavailable [phone] Laureano Bennett MD Unavailable [phone] Unavailable [phone] Encounter Details Date Type Department Care Team (Late st Contact Info) Description 09/19/2020 MyC Medical Advice [address] [phone] Rikki Auguste RN Social History Tobacco Use Types Packs/Day Years [...] (Late Contact Info) Description 07/22/2023 8:45 AM PEOPLESOFT FUNCTIONAL ANALYST Appointment [facility] Maternal Medicine [facility] [address] [place] [address] Sheila Jones MD [address] [address] 07/22/2023 9:15 AM PEOPLESOFT FUNCTIONAL ANALYST Office Visit [facility] Maternal Medicine [facility] [address] [place] [address] Sheila Jones MD [address] [place], [place] [address] 07/26/2023 8:00 AM PEOPLESOFT FUNCTIONAL ANALYST Appointment [facility] Medicine [place] [address] [place] [phone] Jennifer Boyer MD [address] [place], [place] [address] Rayshawn Nunez MD [address] [place], [place] [address] 07/26/2023 8:30 AM PEOPLESOFT FUNCTIONAL ANALYST Office Visit [facility] Maternal Medicine [place] [address] [place] [phone] Jennifer Boyer MD [address] [place], [place] [address] Rayshawn Nunez MD [address] [place], [place] [phone] 07/29/2023 8:00 AM PEOPLESOFT FUNCTIONAL ANALYST Office Visit [address] [phone] Laureano Bennett MD [address] [place] [address] 07/29/2023 11:45 AM PEOPLESOFT FUNCTIONAL ANALYST Appointment [facility] Maternal Medicine [place] [address] [place] [phone] Jennifer Boyer MD [address] [place] [address] 07/29/2023 12:15 PM PEOPLESOFT FUNCTIONAL ANALYST Office Visit [facility] Maternal Medicine [facility] [place] [address] [facility] [address] [place] [phone] Jennifer Boyer MD [address] [place] [address] 08/05/2023 8:00 AM PEOPLESOFT FUNCTIONAL ANALYST Office Visit [address] [phone] Laureano Bennett MD [address] [place] [phone] 08/23/2023 Hospital Encounter [facility] [address] [place] [address] Laureano Bennett MD [address] [place] [phone] documented as of this encounter Visit Diagnoses Not on filedocumented in this encounter Care Teams Well Drill Operator Relationship Specialty Start Date End Date Laureano Bennett MD [address] [place] [phone] PCP - General Family Medicine 07/07/20 Laureano Bennett MD [address] [place] [address] [id number] Assigned PCP 06/12/20 06/04/22 Laureano Bennett MD [address] [place] [address] Assigned PCP 08/14/22 Eugenie Zee, [facility] [place] [address] [place] [address] Pipe Line Inspector Dietitian, Registered 06/14/23 documented as of this encounter
--- OUTSIDE RECORDS SUMMARY | 2023-07-21 14:03 | XMS_ITS | Clinical Summary ---
Author Name Unknown Organization [facility] Address [place], [place] [address] Care Team Providers Care Data Warehouse Administrator Name Role Phone Donna Rae LOCO Primary Care Provider [phone] Allergies No known active allergies Medications Medication Sig Dispensed Refills Start Date End Date Status Qydatrrq-Dw-Jty-Fe-FA ( VITAMIN) tab tablet Take 1 tablet by mouth once daily. 0 06/01/2018 Active Dztha-5-ANA-EPA-Fish Oil (FISH OIL) 1,000 mg (120 mg-180 mg) cap Take by mouth. 0 06/01/2018 Active Active Problems Patient Care Coordination No te Formatting of this note migh t be different from the original. Transfer of care at 21.3 weeks from [facility] transfer records Problem Noted Date Diagnosed Date Encounter for supervision of normal in second trimester 06/01/2018 Family History Medical History Relation Name Comments Good Health Father Cancer-breast Maternal Grandmother Good Health Mother Genetic No Family History Relation Name Status Comments Father Alive Maternal Grandfather Maternal Grandmother Mother Alive Paternal Grandfather Paternal Grandmother Social History Tobacco Use Types Packs/Day Years Used Date Smoking Tobacco: Never Smokeless Tobacco: Never Alcohol Use Standard Drinks/Week Comments No 0 (1 standard drink = 0.6 oz pur e alcohol) PHQ-2 Answer Date Recorded PHQ-2 Score 2 08/22/2018 Sex and Gender Information Value Date Recorded Sex Assigned at Not on file Gender Identity Not on file Sexual Orientation Not on file Obstetrics History Para Term AB IAB SAB Ectopic Multiple Livin g Live Births 2 1 1 1 1 Date Outcome GA Total Labor Labor/2nd/3rd Weight Sex Delivery Anes PTL Bina A1 A5 Name Cl in 01/14 Term 39w 0d 3.32 kg (7 lb 5 oz) M Vag N Candis ng Delivery Location:[place], [place] Comments:[facility]OM, pit aug mentation, 7 hours labor Comments No previous /labor complications Last Filed Vital Signs Vital Sign Reading Time Taken Comments Blood Pressure 120/82 11/19/2018 5:04 PM CDT Pulse 94 11/19/2018 5:04 PM CDT Temperature 36.8 ??C (98.2 ??F) 11/19/2018 5:04 PM CD T Respiratory Rate 16 11/19/2018 5:04 PM CDT Oxygen Saturation 98% 11/19/2018 5:04 PM CDT Inhaled Oxygen Concentration - - Weight 70.3 kg (155 lb) 11/19/2018 5:04 PM CDT Height 175.3 cm (5' 9) 11/19/2018 5:04 PM CDT Body Mass Index 22.89 11/19/2018 5:04 PM CDT Plan of Treatment Health Maintenance Due Date Last Done Comments COVID-19 vaccine series (#1) 01/10/1996 Tdap 2006 Tetanus booster 2015 Pap test for age 21-65 2016 Depression screening for age 12+ 07/06/2019 07/06/2018, 06/01/2018 BMI (ht and wt on same day) for age 18+ 11/20/2019 11/19/2018, 07/06/2018, 06/01/2018 Influenza for age 9-49 02/18/2023 HIV for age 15-65 Completed 01/18/2020 Hepatitis C screening for ag e 18-79 Completed 01/18/2020, 09/25/2018 Pneumococcal series for age 6-64 Aged Out No longer eligible b ased on patient's age to complete this topic Care Teams Data Warehouse Administrator Relationship Specialty Start Date End Date Donna Rae CNM [address] [place] [address] PCP - General Certified Nurse Extractions Technician 10/29/19
== END 2023-07-21 13:54 | disposition home or self-care (01) ==
PROVIDERS: Visit Provider Physician Assistant
DX: O24.414 Gestational diabetes mellitus in pregnancy, insulin controlled (principal); Z3A.34 34 weeks gestation of pregnancy
CPT/HCPCS: 76816; 76819

== ENCOUNTER 2023-07-22 16:01 | Outpatient (CLI) | payer BC, SELFPAY ==
--- OUTSIDE RECORDS SUMMARY | 2023-07-22 16:04 | XMS_ITS | Clinical Summary ---
Author Name Unknown Organization [facility] Address [address] [place] [address] Care Team Providers Care Program Associate Name Role Phone Elsewhere, Pcp Primary Care Provider Unavailabl e Source Comments Patient records contain information from all sites at [facility]. For routine questions regarding patient records, call [phone] during business hours, M-F 8:00 AM - 5:00 PM Central Time. Record requests for emergency care only can be directed to [phone] at any time.[facility] Allergies No known active allergies Medications Medication [...] fever. 90 tablet 0 10/30/2021 Active omega 7-luj-hlz-fish oil 1,000 mg (120 mg-180 mg) capsule [...] Body Mass Index 23.89 05/19/2022 1:41 PM TREE LOADER MEAT Plan of Treatment Health Maintenance Due Date [...] Advance Directives For more information, please contact: [phone] Latest Code Status on File Code Status Date Activated Date Inactivated Comments Full Code 10/30/2021 2:51 AM 10/30/2021 3:16 PM Question Answer Comments Full Code: Not Discussed Due to: Not medically appropriate Care Teams Program Associate Relationship Specialty Start Date End Date Elsewhere, Pcp PCP - General Internal Medicine 09/17/22
--- OUTSIDE RECORDS SUMMARY | 2023-07-22 16:04 | XMS_ITS | Referral Summary ---
Author Name Unknown Organization [facility] Address [address] [place] [address] Care Team Providers Care Senior Mobile Developer Name Role Phone Elsewhere, Pcp Primary Care Provider Unavailabl e Source Comments Patient records contain information from all sites at [facility]. For routine questions regarding patient records, call [phone] during business hours, M-F 8:00 AM - 5:00 PM Central Time. Record requests for emergency care only can be directed to [phone] at any time.[facility] Allergies No known active allergies Medications Medication [...] fever. 90 tablet 0 10/30/2021 Active omega 1-fsn-pgg-fish oil 1,000 mg (120 mg-180 mg) capsule [...] Body Mass Index 23.89 05/19/2022 1:41 PM DESIGN TEACHER Plan of Treatment Not on file Advance Directives For more information, please contact: [phone] Latest Code Status on File Code Status Date Activated Date Inactivated Comments Full Code 10/30/2021 2:51 AM 10/30/2021 3:16 PM Question Answer Comments Full Code: Not Discussed Due to: Not medically appropriate Care Teams Senior Mobile Developer Relationship Specialty Start Date End Date Elsewhere, Pcp PCP - General Internal Medicine 09/17/22
--- OUTSIDE RECORDS SUMMARY | 2023-07-22 16:04 | XMS_ITS | Referral Summary ---
Author Name Unknown [facility] Address [address] [place] [address] Care Team Providers Care Metal Bonding Helper Name Role Phone Renee Bennett MD Primary Care Provider [phone] Renee Bennett MD Unavailable [phone] Unavailable [phone] Encounters Date Type Department Care Team Description 07/22/2023 Travel 07/22/2023 9:15 AM VACUUM FORMING MACHINE OPERATOR Office Visit [facility] Maternal Medicine [facility] [address] [place] [phone] Sheila Jones MD Insulin controlled gestational diabetes mellitus (GDM) in third trimester (Primary Dx); History of IUFD 07/22/2023 8:45 AM VACUUM FORMING MACHINE OPERATOR Hospital Encounter [facility] Medicine [facility] [address] [facility] [address] [place] [phone] Sheila Jones MD Gestational diabetes mellitus (GDM) in third trimester controlled on oral hypoglycemic drug; Prior with demise and current in third trimester 07/19/2023 4:40 PM VACUUM FORMING MACHINE OPERATOR Office Visit [address] [phone] Renee Bennett MD Encounter for supervision of other normal in third trimester (Primary Dx); 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 07/18/2023 Travel 07/18/2023 4:00 PM VACUUM FORMING MACHINE OPERATOR Office Visit [facility] Maternal Medicine [facility] [address] [place] [address] Jennifer Boyer MD Rauk, Tyshawn Flor MD Insulin controlled gestational diabetes mellitus (GDM) in third trimester (Primary Dx) 07/18/2023 3:30 PM VACUUM FORMING MACHINE OPERATOR - 07/18/2023 11:59 PM VACUUM FORMING MACHINE OPERATOR Hospital Encounter [facility] Medicine [facility] [address] [place] [address] Jennifer Boyer MD Rauk, Tyshawn Flor MD Gestational diabetes mellitus (GDM) in third trimester controlled on oral hypoglycemic drug; Prior with demise and current in third trimester Discharge Disposition: Home or Self Care 07/15/2023 Travel 07/15/2023 12:15 PM VACUUM FORMING MACHINE OPERATOR Office Visit [facility] Medicine [place] [address] [place] [phone] Rosemary Cheema MD Insulin controlled gestational diabetes mellitus (GDM) in third trimester (Primary Dx); Prior with demise and current in third trimester 07/15/2023 11:40 AM VACUUM FORMING MACHINE OPERATOR - 07/15/2023 11:59 PM VACUUM FORMING MACHINE OPERATOR Hospital Encounter [facility] Medicine [place] [address] [place] [phone] Rosemary Cheema MD Gestational diabetes mellitus (GDM) in third trimester controlled on oral hypoglycemic drug; Prior with demise and current in third trimester Discharge Disposition: Home or Self Care 07/15/2023 8:40 AM VACUUM FORMING MACHINE OPERATOR Office Visit [address] [phone] Renee Bennett MD Encounter for supervision of other normal in second trimester (Primary Dx); Gestational diabetes mellitus (GDM), antepartum, gestational diabetes method of control unspecified 07/14/2023 Travel 2023 Travel 2023 8:30 AM VACUUM FORMING MACHINE OPERATOR Office Visit [facility] Medicine [place] [address] [place] [address] Rayshawn Nunez MD Insulin controlled gestational diabetes mellitus (GDM) in third trimester (Primary Dx) 2023 8:00 AM VACUUM FORMING MACHINE OPERATOR - 2023 11:59 PM VACUUM FORMING MACHINE OPERATOR Hospital Encounter [facility] Medicine [facility] [address] [facility] [address] [place] [phone] Rayshawn Nunez MD Gestational diabetes mellitus (GDM) in third trimester controlled on oral hypoglycemic drug; Prior with demise and current in third trimester Discharge Disposition: Home or Self Care 07/08/2023 Travel 07/08/2023 Telephone [facility] Medicine [place] [address] [facility] [address] [place] [phone] Chyna Garcia RN Decreased Movement 07/08/2023 Telephone [facility] Medicine [place] [address] [facility] [address] [place] [phone] Chyna Garcia RN Decreased Movement 07/08/2023 4:10 PM VACUUM FORMING MACHINE OPERATOR - 07/08/2023 5:05 PM VACUUM FORMING MACHINE OPERATOR Hospital Encounter [facility] [address] [place] [address] Renee Bennett MD Discharge Disposition: Home or Self Care 07/06/2023 Travel 07/06/2023 4:00 PM VACUUM FORMING MACHINE OPERATOR Office Visit [facility] Medicine [place] [address] [phone] Tyshawn Mccurdy MD Gestational diabetes mellitus (GDM) in third trimester controlled on oral hypoglycemic drug (Primary Dx); Prior with demise and current in third trimester 07/06/2023 3:30 PM VACUUM FORMING MACHINE OPERATOR - 07/06/2023 11:59 PM VACUUM FORMING MACHINE OPERATOR Hospital Encounter [facility] Medicine [place] [address] [facility] [address] [place] [phone] Tyshawn Mccurdy MD Gestational diabetes mellitus (GDM) in third trimester controlled on oral hypoglycemic drug; Prior with demise and current in third trimester Discharge Disposition: Home or Self Care 07/04/2023 Travel 07/04/2023 4:00 PM VACUUM FORMING MACHINE OPERATOR Office Visit [facility] Medicine [place] [address] [facility] [address] [place] [address] Rosemary Cheema MD Gestational diabetes mellitus (GDM) in third trimester controlled on oral hypoglycemic drug (Primary Dx) 07/04/2023 3:15 PM VACUUM FORMING MACHINE OPERATOR - 07/04/2023 11:59 PM VACUUM FORMING MACHINE OPERATOR Hospital Encounter [facility] Medicine [place] [address] [facility] [address] [place] [phone] Rosemary Cheema MD Gestational diabetes mellitus (GDM) in third trimester controlled on oral hypoglycemic drug; Prior with demise and current in third trimester Discharge Disposition: Home or Self Care 07/04/2023 8:20 AM VACUUM FORMING MACHINE OPERATOR Office Visit [address] [phone] Renee Bennett MD Encounter for supervision of other normal in second trimester (Primary Dx); Gestational diabetes mellitus (GDM), antepartum, gestational diabetes method of control unspecified; History of stillbirth 07/03/2023 Travel 07/01/2023 Travel 07/01/2023 8:30 AM VACUUM FORMING MACHINE OPERATOR Office Visit [facility] Medicine [place] [address] [facility] [address] [place] [phone] Jennifer Boyer MD Gestational diabetes mellitus (GDM) in third trimester controlled on oral hypoglycemic drug (Primary Dx); Prior with demise and current in third trimester 07/01/2023 7:54 AM VACUUM FORMING MACHINE OPERATOR - 07/01/2023 11:59 PM VACUUM FORMING MACHINE OPERATOR Hospital Encounter [facility] Medicine [place] [address] [facility] [address] [place] [phone] Jennifer Boyer MD related condition, antepartum Discharge Disposition: Home or Self Care 06/22/2023 PRE VISIT [facility] Medicine [facility] [address] [facility] [address] [place] [address] Violette Zhou RN Ultrasound (L2-GDM) 06/21/2023 Transcribe Orders [facility] [address] [facility] [address] [place] [address] Renee Bennett MD related condition, antepartum (Primary Dx) 06/21/2023 Travel 06/21/2023 10:20 AM VACUUM FORMING MACHINE OPERATOR Office Visit [address] [phone] Renee Bennett MD Gestational diabetes mellitus (GDM), antepartum, gestational diabetes method of control unspecified (Primary Dx) 06/14/2023 Travel 06/14/2023 10:45 AM VACUUM FORMING MACHINE OPERATOR Virtual Visit [address] [phone] Gestational diabetes mellitus (GDM), antepartum, gestational diabetes method of control unspecified 06/10/[address] [address] Unknown, Provider Referral (No available appts for classes virtually for expected time of the referral) 06/03/2023 Travel 06/03/2023 8:00 AM VACUUM FORMING MACHINE OPERATOR Office Visit [address] [phone] Renee Bennett MD , unspecified gestational age (Primary Dx); Varicose veins during ; Gestational diabetes mellitus (GDM), antepartum, gestational diabetes method of control unspecified 05/31/2023 Travel 05/31/2023 8:00 AM VACUUM FORMING MACHINE OPERATOR Lab [facility] [address] [place] [phone] Elevated glucose 05/17/2023 Travel 05/17/2023 9:20 AM VACUUM FORMING MACHINE OPERATOR Office Visit [address] [phone] Renee Bennett MD Encounter for [...] Comments Blood Pressure 110/58 07/19/2023 4:36 PM VACUUM FORMING MACHINE OPERATOR Pulse 92 07/19/2023 4:36 PM VACUUM FORMING MACHINE OPERATOR Temperature 36.1 ??C (97 ??F) 07/19/2023 4:36 PM VACUUM FORMING MACHINE OPERATOR Respiratory Rate 16 07/15/2023 8:48 AM VACUUM FORMING MACHINE OPERATOR Oxygen Saturation 97% 07/19/2023 4:36 PM VACUUM FORMING MACHINE OPERATOR Inhaled Oxygen Concentration - - Weight 82.1 kg (181 lb) 07/19/2023 4:36 PM VACUUM FORMING MACHINE OPERATOR Height 174 cm (5' 8.5) 07/15/2023 8:48 AM VACUUM FORMING MACHINE OPERATOR Body Mass Index 27.12 07/15/2023 8:48 AM VACUUM FORMING MACHINE OPERATOR Plan of Treatment Upcoming Encounters Date Type Department Care Team (Late st Contact Info) Description 07/26/2023 8:00 AM VACUUM FORMING MACHINE OPERATOR Appointment [facility] Maternal Medicine [facility] [address] [facility] [address] [place] [phone] Rayshawn Nunez MD [address] [place] [address] 07/26/2023 8:30 AM VACUUM FORMING MACHINE OPERATOR Office Visit [facility] Maternal Medicine [facility] [address] [facility] [address] [place] [phone] Rayshawn Nunez MD [address] [place], [place] [address] 07/29/2023 8:00 AM VACUUM FORMING MACHINE OPERATOR Office Visit [address] [phone] [place] [address] [place] [address] 07/29/2023 11:45 AM VACUUM FORMING MACHINE OPERATOR Appointment [facility] Maternal Medicine [facility] [address] [facility] [address] [place] [address] Jennifer Boyer MD [address] [place] [address] 07/29/2023 12:15 PM VACUUM FORMING MACHINE OPERATOR Office Visit [facility] Maternal Medicine [facility] [address] [facility] [address] [place] [phone] Jennifer Boyer MD [address] [place] [address] 08/05/2023 8:00 AM VACUUM FORMING MACHINE OPERATOR Office Visit [address] [phone] Renee Bennett MD [address] [place] [phone] 08/23/2023 Hospital Encounter [facility] [address] [place] [phone] Renee Bnenett MD [address] [place] [address] Procedures Procedure Name Priority Date/Time Associated Diagnosis Comments [facility] BPP SINGLE Routine 07/22/2023 9:10 AM VACUUM FORMING MACHINE OPERATOR Gestational diabetes mellitus (GDM) in third trimester controlled on oral hypoglycemic drug Prior with demise and current in third trimester GLUCOSE ALBUMIN OB URINE Routine 07/19/2023 4:28 PM VACUUM FORMING MACHINE OPERATOR Encounter for supervision of other normal in third trimester [facility] BPP SINGLE Routine 07/18/2023 3:55 PM VACUUM FORMING MACHINE OPERATOR Gestational diabetes mellitus (GDM) in third trimester controlled on oral hypoglycemic drug Prior with demise and current in third trimester [facility] SINGLE Routine 07/15/2023 12:07 PM VACUUM FORMING MACHINE OPERATOR Gestational diabetes mellitus (GDM) in third trimester controlled on oral hypoglycemic drug Prior with demise and current in third trimester GLUCOSE ALBUMIN OB URINE Routine 07/15/2023 8:30 AM VACUUM FORMING MACHINE OPERATOR Encounter for supervision of other normal in second trimester [facility] SINGLE Routine 2023 8:41 AM VACUUM FORMING MACHINE OPERATOR Gestational diabetes mellitus (GDM) in third trimester controlled on oral hypoglycemic drug Prior with demise and current in third trimester NON-STRESS TEST - HIM SCAN 07/08/2023 12:00 AM VACUUM FORMING MACHINE OPERATOR [facility] SINGLE Routine 07/06/2023 3:49 PM VACUUM FORMING MACHINE OPERATOR Gestational diabetes mellitus (GDM) in third trimester controlled on oral hypoglycemic drug Prior with demise and current in third trimester [facility] SINGLE Routine 07/04/2023 3:38 PM VACUUM FORMING MACHINE OPERATOR Gestational diabetes mellitus (GDM) in third trimester controlled on oral hypoglycemic drug Prior with demise and current in third trimester BETA 2 GLYCOPROTEIN ANTIBODIES IGG IGM Routine 07/04/2023 9:42 AM VACUUM FORMING MACHINE OPERATOR History of stillbirth CARDIOLIPIN BRENDEN IGG AND IGM Routine 07/04/2023 9:42 AM VACUUM FORMING MACHINE OPERATOR History of stillbirth LUPUS ANTICOAGULANT PANEL Routine 07/04/2023 9:42 AM VACUUM FORMING MACHINE OPERATOR History of stillbirth GLUCOSE ALBUMIN OB URINE Routine 07/04/2023 8:20 AM VACUUM FORMING MACHINE OPERATOR Encounter for supervision of other normal in second trimester [facility] SINGLE Routine 07/01/2023 8:44 AM VACUUM FORMING MACHINE OPERATOR related condition, antepartum GLUCOSE ALBUMIN OB URINE Routine 06/03/2023 8:42 AM VACUUM FORMING MACHINE OPERATOR , unspecified gestational age GESTATIONAL GLUCOSE TOLERANCE TESTING, 3 HOUR Routine 05/31/2023 11:21 AM VACUUM FORMING MACHINE OPERATOR Elevated glucose GESTATIONAL GLUCOSE TOLERANCE TESTING, 2 HOUR Routine 05/31/2023 10:14 AM VACUUM FORMING MACHINE OPERATOR Elevated glucose GESTATIONAL GLUCOSE TOLERANCE TESTING, 1 HOUR Routine 05/31/2023 9:17 AM VACUUM FORMING MACHINE OPERATOR Elevated glucose GESTATIONAL GLUCOSE TOLERANCE TESTING, 3 HOUR Routine 05/31/2023 8:00 AM VACUUM FORMING MACHINE OPERATOR Elevated glucose GESTATIONAL GLUCOSE TOLERANCE TESTING, FASTING Routine 05/31/2023 8:00 AM VACUUM FORMING MACHINE OPERATOR Elevated glucose GLUCOSE ALBUMIN OB URINE Routine 05/17/2023 1:19 PM VACUUM FORMING MACHINE OPERATOR Encounter for supervision of other normal in second trimester GLUCOSE TOLERANCE GEST SCREEN 1 HOUR Routine 05/17/2023 10:39 AM VACUUM FORMING MACHINE OPERATOR Encounter for supervision of other normal in second trimester FERRITIN Routine 05/17/2023 10:29 AM VACUUM FORMING MACHINE OPERATOR Encounter for supervision of other normal in second trimester OB HEMOGLOBIN Routine 05/17/2023 10:29 AM VACUUM FORMING MACHINE OPERATOR Encounter for supervision of other normal in second trimester TSH WITH FREE T4 REFLEX Routine 05/17/2023 10:29 AM VACUUM FORMING MACHINE OPERATOR Encounter for supervision of other normal in second trimester VITAMIN D DEFICIENCY SCREENING Routine 05/17/2023 10:29 AM VACUUM FORMING MACHINE OPERATOR Encounter for supervision of other normal in second trimester from Last 3 Months Results * Maternal BPP Single (07/22/2023 9:10 AM VACUUM FORMING MACHINE OPERATOR) Only the most recent of6 resultswithin the time period is included. Anatomical Region Laterality Modality Ultrasound 07/22/2023 8:54 AM VACUUM FORMING MACHINE OPERATOR Impressions 07/22/2023 9:22 AM VACUUM FORMING MACHINE OPERATOR IMPRESSION ----- 1. [place] intrauterine at 35w 3d gestational age here for testing. 2. The fetus is in cephalic presentation. The amniotic fluid volume is normal. 3. The BPP is 01/25. Narrative 07/22/2023 9:22 AM VACUUM FORMING MACHINE OPERATOR ?BPP ----- Pat. Name: YU LOGAN ? Study Date: ??07/22/2023 8:54am Pat. NO: ??[id number] ?Referring ??MD: RENEE BENNETT Site: ??[facility] ? Cellar Packer: Makeda Hassan RDMS : ??1995 ?Age: ?? 28 ----- INDICATION ----- Gestational Diabetes (GDM) - on Insulin History of term IUFD METHOD ----- Transabdominal ultrasound examination. View: Sufficient ----- [place] . Number of fetuses: 1 DATING ----- ? Date ?Details ?Gest. age ?[place] LMP ?11/16/2022 ?Cycle: regular cycle ?35 w + 3 d ? 08/23/2023 Prior assessment ? 01/05/2023 ? GA: 7 w + 1 d ?35 w + 3 d ? 08/23/2023 Assigned dating ?Dating performed on 07/22/2023, based on the LMP ?35 w + 3 d ? 08/23/2023 GENERAL EVALUATION ----- Cardiac activity present. FHR 133 bpm. movements visualized. Presentation cephalic. Placenta Anterior. Umbilical cord previously studied. AMNIOTIC FLUID ASSESSMENT ----- Amount of AF: normal MVP 5.4 cm BIOPHYSICAL PROFILE ----- 2: breathing movements 2: Gross body movements 2: tone 2: Amniotic fluid volume 8/8 Biophysical profile score Interpretation: normal RECOMMENDATION ----- Thank-you for referring your patient for surveillance for GDMA2. We discussed the results of the ultrasound with the patient. Continue twice weekly surveillance as previously recommended in addition to serial evaluation of growth (most recent 07/01 EFW 35%, AC 55%). Delivery recommended between 37-39 weeks due to history of IUFD. Return to primary provider for continued care. If you have questions regarding today's evaluation or if we can be of further service, please contact the [facility]. anomalies may be present but not detected Procedure Note Sheila Jones MD - 07/22/2023 BPP ----- Pat. Name: YU LOGAN Study Date: 07/22/2023 8:54am Pat. NO: [id number] Referring MD: RENEE BENNETT Site: [facility] Cellar Packer: Makeda Hassan RDMS : 1995 Age: 28 ----- INDICATION ----- Gestational Diabetes (GDM) - on Insulin History of term IUFD METHOD ----- Transabdominal ultrasound examination. View: Sufficient ----- [place] . Number of fetuses: 1 DATING ----- DateDetailsGest. age [place] LMP 11/16/2022ycle: regular cycle35 w + 3 d 08/23/2023 Prior assessment 01/05/2023 GA: 7 w +1 d35 w + 3 d 08/23/2023 Assigned dating Dating performed on 07/22/2023, based onthe LMP 35 w+ 3 d 08/23/2023 GENERAL EVALUATION ----- Cardiac activity present. FHR 133 bpm. movements visualized. Presentation cephalic. Placenta Anterior. Umbilical cord previously studied. AMNIOTIC FLUID ASSESSMENT ----- Amount of AF: normal MVP 5.4 cm BIOPHYSICAL PROFILE ----- 2: breathing movements 2: Gross body movements 2: tone 2: Amniotic fluid volume 8 Biophysical profile score Interpretation: normal RECOMMENDATION ----- Thank-you for referring your patient for surveillance for GDMA2.We discussed the results of the ultrasound with the patient. Continue twice weekly surveillance as previously recommended inaddition to serial evaluation of growth (most recent 07/01 EFW 35%,AC 55%). Delivery recommended between 37-39 weeks due to history of IUFD. Return to primary provider for continued care. If you have questions regarding today's evaluation or if we can be offurther service, please contact the [facility]. anomalies may be present but not detected IMPRESSION ----- 1. [place] intrauterine at 35w 3d gestational age here forantenatal testing. 2. The fetus is in cephalic presentation. The amniotic fluid volume isnormal. 3. The BPP is 8/8. Jennifer Boyer MD [facility] ORDERAB LES * Glucose and albumin, OB urine (07/19/2023 4:28 PM VACUUM FORMING MACHINE OPERATOR) Only the most recent of5 resultswithin the time period is included. Protein Albumin Urine Negative Negative mg/dL 07/19/2023 4:30 PM VACUUM FORMING MACHINE OPERATOR [facility] Glucose Urine Negative Negative mg/dL 07/19/2023 4:30 PM VACUUM FORMING MACHINE OPERATOR [facility] Urine MID-STREAM URINE SPECIMEN / Unknown Non-blood Collection / Unknown 07/19/2023 4:28 PM VACUUM FORMING MACHINE OPERATOR 07/19/2023 4:28 PM VACUUM FORMING MACHINE OPERATOR Renee Bennett MD LAB - URINE ORDERABL ES [facility] [address] [facility] Lab (no room number, 1st floor of clinic) [place] [address], [facility] [phone] * NON-STRESS TEST - HIM SCAN (07/08/2023 12:00 AM VACUUM FORMING MACHINE OPERATOR) 07/08/2023 Provider Outside PROCEDURES * Cardiolipin Brenden IgG and IgM (07/04/2023 9:42 AM VACUUM FORMING MACHINE OPERATOR) Cardiolipin Brenden IgG Instrument Value <2.0 <10.0 GPL-U/mL 07/06/2023 11:27 AM VACUUM FORMING MACHINE OPERATOR [facility]END O Cardiolipin Antibody IgG Negative Negative 07/06/2023 11:27 AM VACUUM FORMING MACHINE OPERATOR [facility]/END O Cardiolipin Brenden IgM Instrument Value 2.2 <10.0 MPL-U/mL 07/06/2023 11:27 AM VACUUM FORMING MACHINE OPERATOR [facility]PROT/END O Cardiolipin Antibody IgM Negative Negative 07/06/2023 11:27 AM VACUUM FORMING MACHINE OPERATOR SPECIALTY CORE/PROT/END O Blood BLOOD SPECIMEN / Unknown Venipuncture / Unknown 07/04/2023 9:42 AM VACUUM FORMING MACHINE OPERATOR 07/04/2023 9:43 AM VACUUM FORMING MACHINE OPERATOR Renee Bennett MD LAB - BLOOD ORDERABL ES [facility]ENDO [facility]/Prot/Endo [address] [facility] [address], [address] [place] [address], [facility] [phone] * Beta 2 Glycoprotein Antibodies IGG IGM (07/04/2023 9:42 AM VACUUM FORMING MACHINE OPERATOR) Beta 2 Glycoprotein 1 Antibody IgG 1.0 <7.0 U/mL 07/06/2023 11:27 AM VACUUM FORMING MACHINE OPERATOR [facility]PROT/END O Comment:Negative Beta 2 Glycoprotein 1 Antibody IgM 3.3 <7.0 U/mL 07/06/2023 11:27 AM VACUUM FORMING MACHINE OPERATOR [facility]PROT/END O Comment:Negative Blood BLOOD SPECIMEN / Unknown Venipuncture / Unknown 07/04/2023 9:42 AM VACUUM FORMING MACHINE OPERATOR 07/04/2023 9:43 AM VACUUM FORMING MACHINE OPERATOR Renee Bennett MD LAB - BLOOD ORDERABL ES [facility]/PROT/ENDO [facility] Core/Prot/Endo [address] [facility] [address] Building, [address] [phone] * Lupus Anticoagulant Panel (07/04/2023 9:42 AM VACUUM FORMING MACHINE OPERATOR) INR 1.04 0.85 - 1.15 4 4:15 PM VACUUM FORMING MACHINE OPERATOR [facility] Thrombin Time 17.0 13.0 - 19.0 Seconds 4 4:15 PM VACUUM FORMING MACHINE OPERATOR [facility] PTT Ratio 0.97 <1.21 4 4:15 PM VACUUM FORMING MACHINE OPERATOR [facility] DRVVT Screen Ratio 0.91 <1.08 4 4:15 PM VACUUM FORMING MACHINE OPERATOR [facility] Lupus Result Negative Negative 4:15 PM VACUUM FORMING MACHINE OPERATOR [facility] Lupus Interpretation The INR is normal. APTT ratio is normal. ?? DRVVT Screen ratio is normal. Thrombin time is normal. NEGATIVE TEST; A LUPUS ANTICOAGULANT WAS NOT DETECTED IN THIS SPECIMEN WITHIN THE LIMITS OF THE TESTING REPERTOIRE. If the clinical picture is strongly suggestive of an antiphospholipid syndrome, recommend anticardiolipin and [id number]-[id number] n (IgG and IgM) antibody tests. Salina James MD, PhD [facility] 4 4:15 PM VACUUM FORMING MACHINE OPERATOR [facility] Blood BLOOD SPECIMEN / Unknown Venipuncture / Unknown 07/04/2023 9:42 AM VACUUM FORMING MACHINE OPERATOR 07/04/2023 9:43 AM VACUUM FORMING MACHINE OPERATOR Renee Bennett MD LAB - BLOOD ORDERABL ES [facility] [address] [facility] [address], [address] [place] [address] [phone] * [facility] Comprehensive Single (07/01/2023 8:44 AM VACUUM FORMING MACHINE OPERATOR) Anatomical Region Laterality Modality Ultrasound 07/01/2023 7:55 AM VACUUM FORMING MACHINE OPERATOR Impressions 07/01/2023 10:53 AM VACUUM FORMING MACHINE OPERATOR IMPRESSION ----- 1) Brumfield intrauterine at 32w [...] BPP was reassuring. Narrative 07/01/2023 10:53 AM VACUUM FORMING MACHINE OPERATOR ?Comprehensive ----- Pat. Name: YU LOGAN ? Study Date: ??07/01/2023 7:55am Pat. NO: ??[id number] ?Referring ??: RENEE BENNETT Site: ??[facility] ? Cellar Packer: Kirstin Gold RDMS : ??1995 ?Age: ?? [...] 4 lb 5 ?oz EFW by ?Hadlock ([id number]) Head / Face / Neck Biometry: Software Engineer Intern ? 6.3 ? mm CM ?8.5 ? [...] vena cava. Inferior vena cava. 3-vessel view. 7-nsnftr-niuyxqb view. ? Cardiac position. Cardiac size. Cardiac [...] the patient (reviewing medical records/tests), in direct jzbh-km-team contact with the patient during her visit with the majority spent counseling and discussing the plan of care and documenting the visit in the electronic medical record. Please see note for details. Procedure Note Jennifer Boyer MD - 07/01/2023 Comprehensive ----- Pat. Name: YU LOGAN Study Date: 07/01/2023 7:55am Pat. NO: [id number] Referring MD: RENEE BENNETT Site: [facility] Cellar Packer: Kirstin Gold RDMS : 1995 Age: 27 [...] 4 lb 5 oz EFW by Hadlock ([id number]) Head / Face / Neck Biometry: Software Engineer Intern 6.3 mm CM 8.5 mm ANATOMY ----- The following structures appear normal: Head / Neck Cranium. Head size. Head shape.Lateral ventricles. Choroid plexus. Midline falx. Cavum septi pellucidi.Cerebellum. Cisterna magna. Parenchyma. Thalami. Vermis. Neck. Face Lips. Heart / Thorax 4-chamber view. RVOT view. LVOT view.Situs. Bicaval view. Superior vena cava. Inferior vena cava. 3-vesselview. 0-vzmbfo-econpmd view. Cardiac position. Cardiac size.Cardiac rhythm. Right [...] see the patient (reviewing medical records/tests), in puopuhwstp-fm-toft contact with the patient during her visit [...] The BPP was reassuring. Renee Bennett MD [facility] US ORDERABLE S * Gestational Glucose Tolerance Testing, 3 Hour (05/31/2023 11:21 AM VACUUM FORMING MACHINE OPERATOR) Gestational GTT 3 Hr Post Dose 110 60 - 139 mg/dL 06/02/2023 12:14 AM VACUUM FORMING MACHINE OPERATOR [facility] Blood BLOOD SPECIMEN / Unknown Venipuncture / Unknown 05/31/2023 11:21 AM VACUUM FORMING MACHINE OPERATOR 05/31/2023 11:21 AM VACUUM FORMING MACHINE OPERATOR Narrative [facility] - 06/02/2023 12:14 AM VACUUM FORMING MACHINE OPERATOR Blood glucose levels collected at fasting, 1 [...] Bennett MD LAB - BLOOD ORDERABL ES Performing Organization Address City/[facility]/ZIP Co de Phone Number [facility] [place] [facility] [address], [address] [place] [address], [place] [phone] * (ABNORMAL) Gestational Glucose Tolerance Testing, 2 Hour (05/31/2023 10:14 AM VACUUM FORMING MACHINE OPERATOR) [facility] Gestational GTT 2 Hr Post Dose 218(H) 60 - 154 mg/dL 06/01/2023 2:26 PM VACUUM FORMING MACHINE OPERATOR [facility] Blood BLOOD SPECIMEN / Unknown Venipuncture / Unknown 05/31/2023 10:14 AM VACUUM FORMING MACHINE OPERATOR 05/31/2023 10:14 AM VACUUM FORMING MACHINE OPERATOR Renee Bennett MD LAB - BLOOD ORDERABL ES [facility] Lab [address] [facility], [address] [place] [address], [place] [phone] * (ABNORMAL) Gestational Glucose Tolerance Testing, 1 Hour (05/31/2023 9:17 AM VACUUM FORMING MACHINE OPERATOR) [facility] Gestational GTT 1 Hr Post Dose 192(H) 60 - 179 mg/dL 05/31/2023 5:31 PM VACUUM FORMING MACHINE OPERATOR [facility] Blood BLOOD SPECIMEN / Unknown Venipuncture / Unknown 05/31/2023 9:17 AM VACUUM FORMING MACHINE OPERATOR 05/31/2023 9:17 AM VACUUM FORMING MACHINE OPERATOR Renee Bennett MD LAB - BLOOD ORDERABL ES Performing Organization Address City/[facility]/ZIP Co de Phone Number [facility] [address], [address] [address], [facility] [phone] * (ABNORMAL) Gestational Glucose Tolerance Testing, Fasting (05/31/2023 8:00 AM VACUUM FORMING MACHINE OPERATOR) [facility] Gestational GTT Fasting 123(H) 60 - 94 mg/dL 05/31/2023 7:28 PM VACUUM FORMING MACHINE OPERATOR [facility] Blood BLOOD SPECIMEN / Unknown Venipuncture / Unknown 05/31/2023 8:00 AM VACUUM FORMING MACHINE OPERATOR 05/31/2023 8:06 AM VACUUM FORMING MACHINE OPERATOR Renee Bennett MD LAB - BLOOD ORDERABL ES Performing Organization Address City/State/[facility] Co de Phone Number [facility] Core Lab [address] [place] [address], [address] [address], [facility] [phone] * (ABNORMAL) Glucose tolerance gest screen 1 hour (05/17/2023 10:39 AM VACUUM FORMING MACHINE OPERATOR) [facility] Glu Gest Screen 1hr 50g 142(H) 70 - 129 mg/dL 05/17/2023 10:56 AM VACUUM FORMING MACHINE OPERATOR [facility] Blood BLOOD SPECIMEN / Unknown Venipuncture / Unknown 05/17/2023 10:39 AM VACUUM FORMING MACHINE OPERATOR 05/17/2023 10:39 AM VACUUM FORMING MACHINE OPERATOR Narrative [facility] - 05/17/2023 10:56 AM VACUUM FORMING MACHINE OPERATOR This is a screening test for Gestational Diabetes Mellitus. If results are 130 mg/dL or greater, a Standard 100 gram Gestational ??3 hour Glucose Tolerance should be performed. Renee Bennett MD LAB - BLOOD ORDERABL ES [facility] [address] [facility] (no room number, 1st floor of clinic) [place] [address], [facility] [phone] * Vitamin D Deficiency (05/17/2023 10:29 AM VACUUM FORMING MACHINE OPERATOR) Vitamin D, Total (25-Hydroxy) 45 20 - 50 ng/mL 05/17/2023 8:59 PM VACUUM FORMING MACHINE OPERATOR [facility] Comment:optimum levels Blood BLOOD SPECIMEN / Unknown Venipuncture / Unknown 05/17/2023 10:29 AM VACUUM FORMING MACHINE OPERATOR 05/17/2023 10:29 AM VACUUM FORMING MACHINE OPERATOR Narrative [facility] - 05/17/2023 8:59 PM VACUUM FORMING MACHINE OPERATOR Season, race, dietary intake, and treatment affect the concentration of 19-aichobo-Wpwukul D. Values may decrease during winter months and increase during summer months. Vitamin D determination is routinely performed by an immunoassay specific for 25 hydroxyvitamin D3. ??If an individual is on vitamin D2(ergocalciferol) supplementation, please specify 25 [place] vitamin D2 and D3 level determination by LCMSMS test VITD23. Renee Bennett MD LAB - BLOOD ORDERABL ES [facility] [place] [facility] [address], [address] [address], [facility] [phone] * TSH with free T4 reflex (05/17/2023 10:29 AM VACUUM FORMING MACHINE OPERATOR) TSH 1.00 0.30 - 4.20 uIU/mL 05/17/2023 8:59 PM VACUUM FORMING MACHINE OPERATOR [facility] Blood BLOOD SPECIMEN / Unknown Venipuncture / Unknown 05/17/2023 10:29 AM VACUUM FORMING MACHINE OPERATOR 05/17/2023 10:29 AM VACUUM FORMING MACHINE OPERATOR Renee Bennett MD LAB - BLOOD ORDERABL ES [facility] [address], [address] [place] [address], [facility] [phone] * OB hemoglobin (05/17/2023 10:29 AM VACUUM FORMING MACHINE OPERATOR) Hemoglobin 12.2 11.7 - 15.7 g/dL 05/17/2023 10:39 AM VACUUM FORMING MACHINE OPERATOR [facility] Blood BLOOD SPECIMEN / Unknown Venipuncture / Unknown 05/17/2023 10:29 AM VACUUM FORMING MACHINE OPERATOR 05/17/2023 10:29 AM VACUUM FORMING MACHINE OPERATOR Renee Bennett MD LAB - BLOOD ORDERABL ES [facility] [address] [place] [address] Lab (no room number, 1st floor of clinic) [place] [address], [facility] [phone] * Ferritin (05/17/2023 10:29 AM VACUUM FORMING MACHINE OPERATOR) Ferritin 17 6 - 175 ng/mL 05/17/2023 8:27 PM VACUUM FORMING MACHINE OPERATOR [facility] Blood BLOOD SPECIMEN / Unknown Venipuncture / Unknown 05/17/2023 10:29 AM VACUUM FORMING MACHINE OPERATOR 05/17/2023 10:29 AM VACUUM FORMING MACHINE OPERATOR Renee Bennett MD LAB - BLOOD ORDERABL ES [facility] [address] [facility], [address] [place] [address], [facility] [phone] from Last 3 Months Care 

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
--- OUTSIDE RECORDS SUMMARY | 2023-07-22 16:04 | XMS_ITS ---
Author Name Unknown Organization [facility] Address [address] [place] [address] Care Team Providers Care Material Processor Name Role Phone Unavailable Unavailable Unavailable Surgery Details Not on file Complications Check Surgery Details section. Procedure Estimated Blood Loss Check Surgery Details section. Procedure Findings Check Surgery Details section. Procedure Specimens Taken Check Surgery Details section.
--- OUTSIDE RECORDS SUMMARY | 2023-07-22 16:04 | XMS_ITS | Encounter Summary ---
Author Name Unknown Organization [facility] Address [address] [place] [address] Care Team Providers Care Data Abstractor Name Role Phone Elsewhere, Pcp Primary Care [...] CDT - 09/17/2022 1:26 PM CDT Emergency [facility] [address] [place] [address] Mark Mallory M.D. [address] [place] [address] Pain Chest (Primary Dx) Discharge [...] Body Mass Index 23.89 05/19/2022 1:41 PM INVESTIGATOR VICE documented in this encounter Medications at Time [...] or fever. 90 tablet 0 10/30/2021 omega 3-vhd-ksm-fish oil 1,000 mg (120 mg-180 mg) capsule [...] CDT Mark Mallory M.D. LAB BLOOD [facility] [address] [place] [address], [facility] NPRG [facility] [address] [place] [address] * Basic Metabolic Panel (09/17/2022 11:29 AM [...] CDT Mark Mallory M.D. LAB BLOOD ADD-ON [facility] [address] [place] [address], [facility] NPRG [facility] [address] [place] [address] * CBC without Differential (09/17/2022 11:29 AM [...] CDT Mark Mallory M.D. LAB BLOOD ADD-ON [facility] [address] [place] [address], [facility] NPRG [facility] [address] [place] [address] * ECG 12 Lead (09/17/2022 11:23 AM CDT) Ventricular Rate ECG/Min 101 BPM MUSE ND Interval 146 ms MUSE QRSD Interval 78 ms MUSE QT Interval 320 ms MUSE QTC Interval 414 ms MUSE P [place] 79 degrees MUSE R [place] 53 degrees MUSE T Wave [place] 57 degrees MUSE 09/17/2022 11:2 3 AM [...] Primary documented in this encounter Care Teams Data Abstractor Relationship Specialty Start Date End Date Elsewhere, Pcp PCP - General Internal Medicine 09/17/22 documented as of this encounter
--- OUTSIDE RECORDS SUMMARY | 2023-07-22 16:05 | XMS_ITS | Encounter Summary ---
Author Name Unknown Organization [facility] Address [address] [place] [address] Care Team Providers Care Novelty Maker Name Role Phone Renee Bennett MD Primary Care Provider [phone] Renee Bennett MD Unavailable [phone] Unavailable [phone] Reason for Referral * Diagnostic Imaging Ultrasound (Routine) - Pending Review Specialty Diagnoses / Procedures Referred By Tim nathan Referred To Contact Radiology. Diagnoses Gestational diabetes mellitus (GDM) in third trimester controlled on oral hypoglycemic drug History of IUFD Procedures Maternal BPP Single Jennifer Boyer MD [address] [place] [address] [place] [address] Referral ID Status Reason Start Date Expiration Date V isits Requested Visits Authorized [id number] Pending Review 07/01/2023 06/30/2024 1 1 RIDER Reason for Visit * Diagnostic Imaging Ultrasound (Routine) - Pending Review Specialty Diagnoses / Procedures Referred By Tim nathan Referred To Contact Radiology. Diagnoses Gestational diabetes mellitus (GDM) in third trimester controlled on oral hypoglycemic drug History of IUFD Procedures Maternal BPP Single Jennifer Boyer MD [address] [place] [place] [address] Referral ID Status Reason Start Date Expiration Date V isits Requested Visits Authorized [id number] Pending Review 07/01/2023 06/30/2024 1 1 Encounter Details Date Type Department Care Team (Latest Contact Info) Description 07/15/2023 11:40 AM TEST RIDER - 07/15/2023 11:59 PM TEST RIDER Hospital Encounter [facility] Maternal Medicine Center [place] [address] [facility] [address] [place] [phone] Rosemary Cheema MD [address] [facility] [address] [place] [address] Gestational diabetes mellitus (GDM) in [...] Renee Bennett MD - 07/15/2023 10:06 PM TEST RIDER Dear Yu, Here is a summary of your recent test results: -Baby is head down - Good News! Thank you very much for trusting me and [facility]. Have a peaceful day. Healthy regards, Prasad Bennett MD RIDER documented in this encounter Plan of Treatment Upcoming Encounters Date Type Department Care Team (Late st Contact Info) Description 07/26/2023 8:00 AM TEST RIDER Appointment [facility] Medicine [place] [address] [facility] [address] [place] [phone] Rayshawn Nunez MD [address] [place] [address] [place], [place] [address] 07/26/2023 8:30 AM TEST RIDER Office Visit [facility] Medicine [place] [address] [facility] [address] [place] [phone] Rayshawn Nunez MD [address] [place] [address] [place] [address] 07/29/2023 8:00 AM TEST RIDER Office Visit [address] [place] [phone] Renee Bennett MD [address] [place] [address] 07/29/2023 11:45 AM TEST RIDER Appointment [facility] Maternal Medicine [place] [address] [facility] [address] [place] [address] Jennifer Boyer MD [address] [place] [address] [place] [address] 07/29/2023 12:15 PM TEST RIDER Office Visit [facility] Medicine [facility] [address] [facility] [address] [place] [address] Jennifer Boyer MD [address] [place] [place] [address] 08/05/2023 8:00 AM TEST RIDER Office Visit [address] [address] Renee Bennett MD [address] [place] [address] 08/23/2023 Hospital Encounter [facility] [address] [place] [address] Renee Bennett MD [address] [place] [address] [phone] documented as of this encounter Procedures Procedure Name Priority Date/Time Associated Diagnosis Comments MFM BPP SINGLE Routine 07/15/2023 12:07 PM TEST RIDER Gestational diabetes mellitus (GDM) in third trimester controlled on oral hypoglycemic drug Prior with demise and current in third trimester documented in this encounter Results * Maternal BPP Single (07/15/2023 12:07 PM TEST RIDER) Anatomical Region Laterality Modality Ultrasound 07/15/2023 11:4 0 AM TEST RIDER Impressions 07/15/2023 2:59 PM TEST RIDER IMPRESSION ----- 1) [place] intrauterine at 34w 3d gestational age. 2) The BPP is reassuring. 3) The amniotic fluid volume appeared normal. Narrative 07/15/2023 2:59 PM TEST RIDER ?BPP ----- Pat. Name: YU RENEE ? Study Date: ??07/15/2023 11:40am Pat. NO: ??[id number] ?Referring ??MD: RENEE BENNETT Site: [facility] [address] Supervisor: Makeda Hassan RDMS : ??1995 ?Age: ?? [...] RENEE Study Date: 07/15/2023 11:40am Pat. NO: [id number] Referring MD: RENEE BENNETT Site: [facility] [address] Supervisor: Makeda Hassan RDMS : 1995 Age: 28 [...] fluid volume appeared normal. Jennifer Boyer MD IMG MF US ORDERAB LES documented in this encounter Visit Diagnoses Diagnosis Gestational diabetes mellitus (GDM) in third trimester controlled on oral hypoglycemic drug Prior with demise and current in third trimester documented in this encounter Additional Health Concerns Assessment Noted Time PHQ-9 Depression Total Score: 0 05/17/20 23 9:06 AM TEST RIDER documented as of this encounter Care Teams Novelty Maker Relationship Specialty Start Date End Date Renee Bennett MD [address] [place] [address] [phone] PCP - General Family Medicine 07/07/20 Renee Bennett MD [address] [place] [address] Assigned PCP 08/14/[address] [place] [address] [place] [address] Filter Cloth Maker Dietitian, Registered 06/14/23 documented as of this encounter
--- OUTSIDE RECORDS SUMMARY | 2023-07-22 16:05 | XMS_ITS | Encounter Summary ---
Author Name Unknown Organization [facility] Address [address] [facility] [place] [address] Care Team Providers Care Laundry Machine Mechanic Name Role Phone Laureano Bennett MD Primary Care Provider [phone] Laureano Bennett MD Unavailable [phone] Unavailable [phone] Encounter Details Date Type Department Care Team (Latest Contact Info) Description 07/22/2023 Travel Social History Tobacco Use Types Packs/Day [...] st Contact Info) Description 07/26/2023 8:00 AM CERTIFIED NUCLEAR MEDICINE TECHNOLOGIST Appointment [facility] Maternal Medicine [place] [address] [address] [facility] [address] [place] [phone] Rayshawn Nunez MD [address] [place] [address] [place], [place] [address] 07/26/2023 8:30 AM CERTIFIED NUCLEAR MEDICINE TECHNOLOGIST Office Visit [facility] Medicine [place] [address] [employer] [address] [place] [phone] Rayshawn Nunez MD [address] [place] [address] [place], [place] [address] 07/29/2023 8:00 AM CERTIFIED NUCLEAR MEDICINE TECHNOLOGIST Office Visit [address] [phone] Laureano Bennett MD [address] [place] [address] 07/29/2023 11:45 AM CERTIFIED NUCLEAR MEDICINE TECHNOLOGIST Appointment [facility] Maternal Medicine [place] [address] [facility] [address] [place] [phone] Jennifer Boyer MD [address] [place] [address] [place] [address] 07/29/2023 12:15 PM CERTIFIED NUCLEAR MEDICINE TECHNOLOGIST Office Visit [facility] Maternal Medicine Center [place] [address] [facility] [address] [place] [address] Jennifer Boyer MD [address] [place] [address] [place] [address] 08/05/2023 8:00 AM CERTIFIED NUCLEAR MEDICINE TECHNOLOGIST Office Visit [address] [phone] Laureano Bennett MD [address] [place] [address] 055162 08/23/2023 Hospital Encounter [facility] [address] [place] [phone] Laureano Bennett MD [address] [place] [address] 042322 documented as of this encounter Visit Diagnoses Not on filedocumented in this encounter Additional Health Concerns Assessment Noted Time PHQ-9 Depression Total Score: 0 05/17/20 23 9:06 AM CERTIFIED NUCLEAR MEDICINE TECHNOLOGIST documented as of this encounter Care Teams Laundry Machine Mechanic Relationship Specialty Start Date End Date Laureano Bennett MD [address] [place] [address] [phone] PCP - General Family Medicine 07/07/20 Laureano Bennett MD [address] [place] [address] [phone] Assigned PCP 08/14/[address] [facility] [place] [address] [place] [address] Real Property Evaluator Dietitian, Registered 06/14/23 documented as of this encounter
--- OUTSIDE RECORDS SUMMARY | 2023-07-22 16:05 | XMS_ITS | Encounter Summary ---
Author Name Unknown Organization [facility] Address [address] [facility] [place] [address] Care Team Providers Care Ship Scraper Name Role Phone Laureano Bennett MD Primary Care Provider [phone] Laureano Bennett MD Unavailable [phone] Unavailable [phone] Reason for Visit * Reason Comments Ultrasound BPP-GDMA2, Hx term I UFD Encounter Details Date Type Department Care Team ([facility] st Contact Info) Description 2023 8:30 AM WHITE LEAD GRINDER Office Visit [facility] Maternal Medicine Center [place] [address] [facility] [address] [place] [address] Rayshawn Nunez MD [address] [facility] [address] [place] [address] Insulin controlled gestational diabetes mellitus [...] Beatriz Pro, GAVI - 2023 8:30 AM WHITE LEAD GRINDER Images from the original note were not [...] Where can you learn more? Go to [email or web address].net/patiented Enter U048 in the search box to learn more about Counting Your Baby's Kicks: Care Instructions. Current as of: December 28, 2022 Content Version: 13.8 ?? [employer]. Care instructions adapted under license by your healthcare professional. If you have questions about a medical condition or this instruction, always ask your healthcare professional. [employer] disclaims any warranty or liability for your use of this information. E LEAD GRINDER documented in this encounter Progress Notes * Rayshawn Nunez MD - 2023 8:30 AM CST Please see full imaging report from ViewPoint program under imaging tab. Breech. Rayshawn Nunez MD Maternal Medicine E LEAD GRINDER documented in this encounter Nursing Notes * [...] MARYAM MAYERS, see their note in Epic. E LEAD GRINDER documented in this encounter Plan of Treatment Upcoming Encounters Date Type Department Care Team (Late st Contact Info) Description 07/26/2023 8:00 AM WHITE LEAD GRINDER Appointment [facility] Maternal Medicine [place] [address] [address] Rayshawn Nunez MD [address] [place] [address] [place], [place] [address] 07/26/2023 8:30 AM WHITE LEAD GRINDER Office [facility] Medicine [place] [address] [address] Rayshawn Nunez MD [address] [place] [address] [place], [place] [address] 07/29/2023 8:00 AM WHITE LEAD GRINDER Office Visit [address] [phone] Laureano Bennett MD [address] [place] [address]479[address] 07/29/2023 11:45 AM WHITE LEAD GRINDER Appointment [facility] Maternal Medicine [place] [address] [phone] Jennifer Boyer MD [address] [place] [address] [place], [place] [address] 07/29/2023 12:15 PM WHITE LEAD GRINDER Office Visit [facility] Maternal Medicine [place] [address] [phone] Jennifer Boyer MD [address] [place] [address] [place] [address] 08/05/2023 8:00 AM WHITE LEAD GRINDER Office Visit [address] [address] Laureano Bennett MD [address] [place] [address] [phone] 08/23/2023 Hospital Encounter [facility] [address] [place] [phone] Laureano Bennett MD [address] [place] [address] [phone] documented as of this encounter Visit Diagnoses Diagnosis Insulin controlled gestational diabetes mellitus (GDM) in third trimester- Primary documented in this encounter Additional Health Concerns Assessment Noted Time PHQ-9 Depression Total Score: 0 05/17/20 9:06 AM WHITE LEAD GRINDER documented as of this encounter Care Teams Ship Scraper Relationship Specialty Start Date End Date Laureano Bennett MD [address] [place] [address] [phone] PCP - General Family Medicine 07/07/20 Laureano Bennett MD [address] [place] [address] Assigned PCP 08/14/[address] [facility] [address] [place] [address] Snow Blower Dietitian, Registered 06/14/23 documented as of this encounter
--- OUTSIDE RECORDS SUMMARY | 2023-07-22 16:05 | XMS_ITS | Encounter Summary ---
Author Name Unknown Organization [facility] Address [facility] [place] [address] Care Team Providers Care Tower Switch Operator Name Role Phone Laureano Bennett MD Primary Care Provider [phone] Laureano Bennett MD Unavailable [phone] Unavailable [phone] Encounter Details Date Type Department Care Team ([facility] st Contact Info) Description 07/18/2023 4:00 PM ADVISORY SERVICES ASSOCIATE Office Visit [facility] Maternal Medicine Center [place] [address] [facility] [address] [place] [address] Jennifer Boyer MD [address] [place] [address] [address] [place] [address] Tyshawn Mccurdy MD [address] [place] [address] [address] [place] [address] Insulin controlled gestational diabetes mellitus [...] for details of today's [facility] at the [facility]. Tyshawn Mccurdy MD Maternal- Medicine SORY SERVICES ASSOCIATE documented in this encounter Plan of Treatment Upcoming Encounters Date Type Department Care Team (Late st Contact Info) Description 07/26/2023 8:00 AM ADVISORY SERVICES ASSOCIATE Appointment [facility] M[facility] Medicine [facility] [place] [address] [facility] [address] [place] [address] Rayshawn Nunez MD [address] [place] [address] [place] [address] 07/26/2023 8:30 AM ADVISORY SERVICES ASSOCIATE Office Visit [facility] Maternal Medicine [place] [address] [address] [facility] [address] [place] [address] Rayshawn Nunez MD [address] [place] [address] [place] [address] 07/29/2023 8:00 AM ADVISORY SERVICES ASSOCIATE Office Visit [address] [phone] Laureano Bennett MD [address] [place] [address]472 07/29/2023 11:45 AM ADVISORY SERVICES ASSOCIATE Appointment [facility] Maternal Medicine [place] [address] [address] [facility] [address] [place] [phone] Jennifer Boyer MD [address] [place] [address] [place] [address] 07/29/2023 12:15 PM ADVISORY SERVICES ASSOCIATE Office Visit [facility] Maternal Medicine [place] [address] [address] [facility] [address] [place] [address] Jennifer Boyer MD [address] [place] [address] [place] [address] 08/05/2023 8:00 AM ADVISORY SERVICES ASSOCIATE Office Visit [address] [phone] Laureano Bennett MD [address] [place] [address] [phone] 08/23/[address] [facility] [address] [place] [phone] Laureano Bennett MD [address] [place] [address] [phone] documented as of this encounter Visit Diagnoses Diagnosis Insulin controlled gestational diabetes mellitus (GDM) in third trimester- Primary documented in this encounter Additional Health Concerns Assessment Noted Time PHQ-9 Depression Total Score: 0 05/17/20 23 9:06 AM ADVISORY SERVICES ASSOCIATE documented as of this encounter Care Teams Tower Switch Operator Relationship Specialty Start Date End Date Laureano Bennett MD [address] [place] [address] [phone] PCP - General Family Medicine 07/07/20 Laureano Bennett MD [address] [place] [address] [phone] Assigned PCP 08/14/[address] [place] [address] [place] [address] Screen Door Maker Dietitian, Registered 06/14/23 documented as of this encounter
--- OUTSIDE RECORDS SUMMARY | 2023-07-22 16:05 | XMS_ITS | Encounter Summary ---
Author Name Unknown Organization [place] Address [address] [facility] [place] [address] Care Team Providers Care Administrative Job Titles Name Role Phone Laureano Bennett MD Primary Care Provider [phone] Laureano Bennett MD Unavailable [phone] Unavailable [phone] Encounter Details Date Type Department Care [...] st Contact Info) Description 07/26/2023 8:00 AM JOURNAL CLERK Appointment [facility] Maternal Medicine [place] [address] [facility] [address] [place] [phone] Rayshawn Nunez MD [address] [place], [place] [address] 07/26/2023 8:30 AM JOURNAL CLERK Office Visit [facility] Medicine [place] [address] [address] [facility] [address] [place] [phone] Rayshawn Nunez MD [address] [place], [place] [address] 07/29/2023 8:00 AM JOURNAL CLERK Office Visit [address] [phone] Laureano Bennett MD [address] [place] [address] 07/29/2023 11:45 AM JOURNAL CLERK Appointment [facility] Maternal Medicine [place] [address] [facility] [address] [place] [phone] Jennifer Boyer MD [address] [place], [place] [address] 07/29/2023 12:15 PM JOURNAL CLERK Office Visit [facility] Maternal Medicine [place] [address] [phone] Jennifer Boyer MD [address] [place] [address] 08/05/2023 8:00 AM JOURNAL CLERK Office Visit [address] [phone] Laureano Bennett MD [address] [place] [address] 794392 08/23/2023 Hospital Encounter [facility] [address] [place] [phone] Laureano Bennett MD [address] [place] [address] [phone] documented as of this encounter Visit Diagnoses Not on filedocumented in this encounter Additional Health Concerns Assessment Noted Time PHQ-9 Depression Total Score: 0 05/17/20 23 9:06 AM JOURNAL CLERK documented as of this encounter Care Teams Administrative Job Titles Relationship Specialty Start Date End Date Laureano Bennett MD [address] [place] [address] PCP - General Family Medicine 07/07/20 Laureano Bennett MD [address] [place] [address] 9[address]87 Assigned PCP 08/14/[address] [facility] [place] [address] [place] [address] Vocational Rehabilitation Counselor Dietitian, Registered 06/14/23 documented as of this encounter
--- OUTSIDE RECORDS SUMMARY | 2023-07-22 16:05 | XMS_ITS | Encounter Summary ---
Author Name Unknown Organization [place] Address [address] [place] [address] Care Team Providers Care Still Runner Name Role Phone Laureano Bennett MD Primary Care Provider [phone] Laureano Bennett MD Unavailable [phone] Unavailable Encounter Details Date Type Department Care Team ([facility] Contact Info) Description 07/15/2023 8:40 AM DIRECTOR CALL CENTER SALES Office Visit [address] [phone] Laureano Bennett MD [address] [place] [address] Encounter for supervision of other normal [...] Comments Blood Pressure 126/74 07/15/2023 8:48 AM DIRECTOR CALL CENTER SALES Pulse 78 07/15/2023 8:48 AM DIRECTOR CALL CENTER SALES Temperature 36.4 ??C (97.6 ??F) 07/15/2023 8:48 AM CS T Respiratory Rate 16 07/15/2023 8:48 AM DIRECTOR CALL CENTER SALES Oxygen Saturation 99% 07/15/2023 8:48 AM DIRECTOR CALL CENTER SALES Inhaled Oxygen Concentration - - Weight 80.7 kg (178 lb) 07/15/2023 8:48 AM DIRECTOR CALL CENTER SALES Height 174 cm (5' 8.5) 07/15/2023 8:48 AM DIRECTOR CALL CENTER SALES Body Mass Index 26.67 07/15/2023 8:48 AM DIRECTOR CALL CENTER SALES documented in this encounter Progress Notes * Laureano Bennett MD - 07/15/2023 8:40 AM CST S:Yu Renee is here today for a Visit at 34w3d gestation. Concerns today: Less movement, swelling since last week, and would like to up dose for insulin, would like more info on when to deliver baby, and breech noted at [facility] scheduling version Gest diabetes - eating [...] dinner if needed Return in 1 weeks CTOR CALL CENTER SALES documented in this encounter Plan of Treatment Upcoming Encounters Date Type Department Care Team (Late st Contact Info) Description 07/26/2023 8:00 AM DIRECTOR CALL CENTER SALES Appointment [facility] [place] [address] [address] [facility] [address] [place] [phone] Rayshawn Nunez MD [address] [place], [place] [address] 07/26/2023 8:30 AM DIRECTOR CALL CENTER SALES Office Visit [facility] [place] [address] [phone] Rayshawn Nunez MD [address] [place], [place] [address] 07/29/2023 8:00 AM DIRECTOR CALL CENTER SALES Office Visit [address] [phone] Laureano Bennett MD [address] [place] [address] [phone] 07/29/2023 11:45 AM DIRECTOR CALL CENTER SALES Appointment [facility] [place] [address] [phone] Jennifer Boyer MD [address] [place], [place] [address] 07/29/2023 12:15 PM DIRECTOR CALL CENTER SALES Office Visit [facility] [place] [address] [phone] Jennifer Boyer MD [address] [place], [place] [address] 08/05/2023 8:00 AM DIRECTOR CALL CENTER SALES Office Visit [address] [place] [phone] Laureano Bennett MD [address] [place] [address] [phone] 08/23/2023 Hospital Encounter [facility] Birthplace [address] [place] [phone] Laureano Bennett MD [address] [place] [address] [phone] documented as of this encounter Procedures Procedure Name Priority Date/Time Associated Diagnosis Comments GLUCOSE ALBUMIN OB URINE Routine 07/15/2023 8:30 AM DIRECTOR CALL CENTER SALES Encounter for supervision of other normal in second trimester documented in this encounter Results * Glucose and albumin, OB urine (07/15/2023 8:30 AM DIRECTOR CALL CENTER SALES) Protein Albumin Urine Negative Negative mg/dL 07/15/2023 8:59 AM DIRECTOR CALL CENTER SALES [facility] Glucose Urine Negative Negative mg/dL 07/15/2023 8:59 AM DIRECTOR CALL CENTER SALES [facility] Urine MID-STREAM URINE SPECIMEN / Unknown Non-blood Collection / Unknown 07/15/2023 8:30 AM DIRECTOR CALL CENTER SALES 07/15/2023 8:56 AM DIRECTOR CALL CENTER SALES Laureano Bennett MD LAB - URINE ORDERABL ES [facility] [address] [place] [address] S. E Lab (no room number, 1st floor of clinic) [place] [address] [phone] documented in this encounter Visit Diagnoses Diagnosis Encounter for supervision of other normal in second trimester- Primary Gestational diabetes mellitus (GDM), antepartum, gestational diabetes method of control unspecified documented in this encounter Additional Health Concerns Assessment Noted Time PHQ-9 Depression Total Score: 0 05/17/20 23 9:06 AM DIRECTOR CALL CENTER SALES documented as of this encounter Care Teams Still Runner Relationship Specialty Start Date End Date Laureano Bennett MD [address] [place] [address] [id number] PCP - General Family Medicine 07/07/20 Laureano Bennett MD [address] [place] [address] [phone] Assigned PCP 08/14/[address] [place] [address] [place] [address] Invasive Physician Dietitian, Registered 06/14/23 documented as of this encounter
--- OUTSIDE RECORDS SUMMARY | 2023-07-22 16:05 | XMS_ITS | Encounter Summary ---
Author Name Unknown Organization [place] Address [address] [place] [address] Care Team Providers Care Garment Finisher Name Role Phone Renee Bennett MD Primary Care Provider [phone] Renee Bennett MD Unavailable [phone] Unavailable [phone] Reason for Referral * Diagnostic Imaging Ultrasound (Routine) - Pending Review Specialty Diagnoses / Procedures Referred By Tim nathan Referred To Contact Radiology. Diagnoses Gestational diabetes mellitus (GDM) in third trimester controlled on oral hypoglycemic drug History of IUFD Procedures Maternal BPP Single Jennifer Boyer MD [address] [place] [address] Referral ID Status Reason Start Date Expiration Date V isits Requested Visits Authorized [id number] Pending Review 07/01/2023 06/30/2024 1 1 ER CLEANER Reason for Visit * Diagnostic Imaging Ultrasound (Routine) - Pending Review Specialty Diagnoses / Procedures Referred By Tim nathan Referred To Contact Radiology. Diagnoses Gestational diabetes mellitus (GDM) in third trimester controlled on oral hypoglycemic drug History of IUFD Procedures Maternal BPP Single Jennifer Boyer MD [address] [place] [address] Referral ID Status Reason Start Date Expiration Date V isits Requested Visits Authorized [id number] Pending Review 07/01/2023 06/30/2024 1 1 Encounter Details Date Type Department Care Team (Latest Contact Info) Description 07/18/2023 3:30 PM FILTER CLEANER - 07/18/2023 11:59 PM FILTER CLEANER Hospital Encounter [facility] [place] [address] [facility] [address] [place] [address] Jennifer Boyer MD [address] [place] [address] Tyshawn Mccurdy MD [address] [place] [address] Gestational diabetes mellitus (GDM) in [...] st Contact Info) Description 07/26/2023 8:00 AM FILTER CLEANER Appointment [facility] Maternal Medicine [facility] [address] [facility] [address] [place] [address] Rayshawn Nunez MD [address] [place], [place] [address] 07/26/2023 8:30 AM FILTER CLEANER Office Visit [facility] Medicine [facility] [address] [facility] [address] [place] [address] Rayshawn Nunez MD [address] [place] [address] 07/29/2023 8:00 AM FILTER CLEANER Office Visit [address] [phone] Renee Bennett MD [address] [place] [address] 577212 07/29/2023 11:45 AM FILTER CLEANER Appointment [facility] Medicine [facility] [address] [facility] [address] [place] [phone] Jennifer Boyer MD [address] [place] [address] 07/29/2023 12:15 PM FILTER CLEANER Office Visit [facility] Medicine [facility] [address] [facility] [address] [place] [phone] Jennifer Boyer MD [address] [place], [place] [address] 08/05/2023 8:00 AM FILTER CLEANER Office Visit [address] [phone] Renee Bennett MD [address] [place] [address] 100472 08/23/2023 Hospital Encounter [facility]place [address] [place] [phone] Renee Bennett MD [address] [place] [address] [phone] documented as of this encounter Procedures Procedure Name Priority Date/Time Associated Diagnosis Comments MFM BPP SINGLE Routine 07/18/2023 3:55 PM FILTER CLEANER Gestational diabetes mellitus (GDM) in third trimester controlled on oral hypoglycemic drug Prior with demise and current in third trimester documented in this encounter Results * Maternal BPP Single (07/18/2023 3:55 PM FILTER CLEANER) Anatomical Region Laterality Modality Ultrasound 07/18/2023 3:34 PM FILTER CLEANER Impressions 07/18/2023 3:57 PM FILTER CLEANER IMPRESSION ----- 1) Normal amniotic fluid volume. 2) BPP is reassuring. Narrative 07/18/2023 3:57 PM FILTER CLEANER ?BPP ----- Pat. Name: YU RENEE ? Study Date: ??07/18/2023 3:34pm Pat. NO: ??[id number] ?Referring ??MD: RENEE BENNETT Site: [facility] ? Finance Professor: Kirstin Gold RDMS : ??1995 ?Age: ?? [...] RENEE Study Date: 07/18/2023 3:34pm Pat. NO: [id number] Referring MD: RENEE BENNETT Site: [facility] Finance Professor: Kirstin Gold RDMS : 1995 Age: 28 [...] 2) BPP is reassuring. Jennifer Boyer MD [facility] US ORDERAB LES documented in this encounter Visit Diagnoses Diagnosis Gestational diabetes mellitus (GDM) in third trimester controlled on oral hypoglycemic drug Prior with demise and current in third trimester documented in this encounter Additional Health Concerns Assessment Noted Time PHQ-9 Depression Total Score: 0 05/17/20 23 9:06 AM FILTER CLEANER documented as of this encounter Care Teams Garment Finisher Relationship Specialty Start Date End Date Renee Bennett MD [address] [place] [address] [phone] PCP - General Family Medicine 07/07/20 Renee Bennett MD [address] [place] [address] Assigned PCP 08/14/[address] [place] [address] [place] [address] Learning Strategist Dietitian, Registered 06/14/23 documented as of this encounter
--- OUTSIDE RECORDS SUMMARY | 2023-07-22 16:05 | XMS_ITS | Encounter Summary ---
Author Name Unknown Organization [place] Address [address] [facility] [place] [address] Care Team Providers Care Wet Plant Operator Name Role Phone Laureano Bennett MD Primary Care Provider [phone] Laureano Bennett MD Unavailable [phone] Unavailable [phone] Reason for Visit * Reason Comments Ultrasound BPP-GDMA2, hx term I UFD Encounter Details Date Type Department Care Team ([facility] st Contact Info) Description 07/15/2023 12:15 PM ARBORICULTURE INSTRUCTOR Office Visit [facility] M[facility] Medicine [facility] [place] [address] [facility] [address] [place] [address] Rosemary Cheema MD [address] [facility] [address] [facility] [address] [place] [address] Insulin controlled gestational diabetes mellitus [...] for details of today's visit. Rosemary Cheema RICULTURE INSTRUCTOR documented in this encounter Nursing Notes * Addis Olivares RN - 07/15/2023 12:15 PM CST Patient reports + movement, no pain, no contractions, leaking of fluid, or bleeding. Reports blood sugar values fasting >95 and 1 hr post prandial <140 with the exception of post dinner values which generally run >140. SBAR given to MARYAM MAYERS, see their note in Epic. RICULTURE INSTRUCTOR documented in this encounter Plan of Treatment Upcoming Encounters Date Type Department Care Team (Late st Contact Info) Description 07/26/2023 8:00 AM ARBORICULTURE INSTRUCTOR Appointment [facility] M[facility] Medicine [facility] [place] [address] [facility] [address] [place] [address] Rayshawn Nunez MD [address] [place] [address] 07/26/2023 8:30 AM ARBORICULTURE INSTRUCTOR Office Visit [facility] Maternal Medicine [place] [address] [address] [facility] [address] [place] [address] Rayhsawn Nunez MD [address] [place] [address] 07/29/2023 8:00 AM ARBORICULTURE INSTRUCTOR Office Visit [address] [phone] Laureano Bennett MD [address] [place] [address] 725362 07/29/2023 11:45 AM ARBORICULTURE INSTRUCTOR Appointment [facility] Maternal Medicine [place] [address] [address] [facility] [address] [place] [phone] Jennifer Boyer MD [address] [place] [address] 07/29/2023 12:15 PM ARBORICULTURE INSTRUCTOR Office Visit [facility] Maternal Medicine [place] [address] [address] [facility] [address] [place] [address] Jennifer Boyer MD [address] [place] [address] 08/05/2023 8:00 AM ARBORICULTURE INSTRUCTOR Office Visit [address] [phone] Laureano Bennett MD [address] [place] [address] 176042 08/23/2023 Hospital Encounter [facility] [address] [place] [phone] Laureano Bennett MD [address] [place] [address] documented as of this encounter Visit Diagnoses Diagnosis Insulin controlled gestational diabetes mellitus (GDM) in third trimester- Primary Prior with demise and current in third trimester documented in this encounter Additional Health Concerns Assessment Noted Time PHQ-9 Depression Total Score: 0 05/17/20 23 9:06 AM ARBORICULTURE INSTRUCTOR documented as of this encounter Care Teams Wet Plant Operator Relationship Specialty Start Date End Date Laureano Bennett MD [address] [place] [address] PCP - General Family Medicine 07/07/20 Laureano Bennett MD [address] [place] [address] Assigned PCP 08/14/[address] [place] [address] [place] [address] Literary Writer Dietitian, Registered 06/14/23 documented as of this encounter
--- OUTSIDE RECORDS SUMMARY | 2023-07-22 16:05 | XMS_ITS | Encounter Summary ---
Author Name Unknown Organization [place] Address [address] [place] [address] Care Team Providers Care Diffusion Furnace Operator Name Role Phone Renee Bennett MD Primary Care Provider [phone] Renee Bennett MD Unavailable [phone] Unavailable [phone] Reason for Referral * Diagnostic Imaging Ultrasound (Routine) - Pending Review Specialty Diagnoses / Procedures Referred By Tim nathan Referred To Contact Radiology. Diagnoses Gestational diabetes mellitus (GDM) in third trimester controlled on oral hypoglycemic drug History of IUFD Procedures Maternal BPP Single Jennifer Boyer MD [address] [place] [address] Referral ID Status Reason Start Date Expiration Date V isits Requested Visits Authorized [id number] Pending Review 07/01/2023 06/30/2024 1 1 PREPARER Reason for Visit * Diagnostic Imaging Ultrasound (Routine) - Pending Review Specialty Diagnoses / Procedures Referred By Tim nathan Referred To Contact Radiology. Diagnoses Gestational diabetes mellitus (GDM) in third trimester controlled on oral hypoglycemic drug History of IUFD Procedures Maternal BPP Single Jennifer Boyer MD [address] [place] [address] Referral ID Status Reason Start Date Expiration Date V isits Requested Visits Authorized [id number] Pending Review 07/01/2023 06/30/2024 1 1 Encounter Details Date Type Department Care Team (Latest Contact Info) Description 07/22/2023 8:45 AM TEST PREPARER Hospital Encounter [facility] Maternal Medicine Center [place] [address] [facility] [address] [place] [address] Sheila Jones MD [address] [facility] [address] [place] [address] Gestational diabetes mellitus (GDM) in [...] Encounter Note - Renee Bennett MD - 07/22/2023 3:28 PM TEST PREPARER Dear Yu, Here is a summary of your recent test results: -Everything looks good and in addition baby is headdown (cephalic) which is good news as well. Thank you very much for trusting me and [facility]. Have a peaceful day. Healthy regards, Prasad Bennett MD PREPARER documented in this encounter Plan of Treatment Upcoming Encounters Date Type Department Care Team (Late st Contact Info) Description 07/26/2023 8:00 AM TEST PREPARER Appointment [facility] Maternal Medicine [facility] [address] [facility] [address] [place] [phone] Rayshawn Nunez MD [address] [place] [address] 07/26/2023 8:30 AM TEST PREPARER Office Visit [facility] Maternal Medicine [facility] [address] [facility] [address] [place] [phone] Rayshawn Nunez MD [address] [place] [address] 07/29/2023 8:00 AM TEST PREPARER Office Visit [address] [phone] Renee Bennett MD [address] [place] [address] 07/29/2023 11:45 AM TEST PREPARER Appointment [facility] Medicine [facility] [address] [facility] [address] [place] [address] Jennifer Boyer MD [address] [place] [address] 07/29/2023 12:15 PM TEST PREPARER Office Visit [facility] Medicine [facility] [address] [facility] [address] [place] [address] Jennifer Boyer MD [address] [place] [address] 08/05/2023 8:00 AM TEST PREPARER Office Visit [address] [phone] Renee Bennett MD [address] [place] [address] 08/23/2023 Hospital Encounter [facility] [address] [place] [address] Renee Bennett MD [address] [place] [address] 355662 documented as of this encounter Procedures Procedure Name Priority Date/Time Associated Diagnosis Comments MFM BPP SINGLE Routine 07/22/2023 9:10 AM TEST PREPARER Gestational diabetes mellitus (GDM) in third trimester controlled on oral hypoglycemic drug Prior with demise and current in third trimester documented in this encounter Results * Maternal BPP Single (07/22/2023 9:10 AM TEST PREPARER) Anatomical Region Laterality Modality Ultrasound 07/22/2023 8:54 AM TEST PREPARER Impressions 07/22/2023 9:22 AM TEST PREPARER IMPRESSION ----- 1. [place] intrauterine at 35w 3d gestational age here for testing. 2. The fetus is in cephalic presentation. The amniotic fluid volume is normal. 3. The BPP is 01/25. Narrative 07/22/2023 9:22 AM TEST PREPARER ?BPP ----- Pat. Name: YU RENEE ? Study Date: ??07/22/2023 8:54am Pat. NO: ??[id number] ?Referring ??MD: RENEE BENNETT Site: ??[facility] ? Wheat Combine Driver: Makeda Hassan RDMS : ??1995 ?Age: ?? [...] - 07/22/2023 BPP ----- Pat. Name: YU RENEE Study Date: 07/22/2023 8:54am Pat. NO: [id number] Referring MD: RENEE BENNETT Site: [facility] Wheat Combine Driver: Makeda Hassan RDMS : 1995 Age: 28 [...] The BPP is 8/8. Jennifer Boyer MD [facility] US ORDERAB LES documented in this encounter Visit Diagnoses Diagnosis Gestational diabetes mellitus (GDM) in third trimester controlled on oral hypoglycemic drug Prior with demise and current in third trimester documented in this encounter Additional Health Concerns Assessment Noted Time PHQ-9 Depression Total Score: 0 05/17/20 23 9:06 AM TEST PREPARER documented as of this encounter Care Teams Diffusion Furnace Operator Relationship Specialty Start Date End Date Renee Bennett MD [address] [place] [address] [phone] PCP - General Family Medicine 07/07/20 Renee Bennett MD [address] [place] [address] [phone] Assigned PCP 08/14/[address] [facility] [address] [address] [address] Automation Design Engineer Dietitian, Registered 06/14/23 documented as of this encounter
--- OUTSIDE RECORDS SUMMARY | 2023-07-22 16:05 | XMS_ITS | Encounter Summary ---
Author Name Unknown Organization [place] Address [address] [facility] [place] [address] Care Team Providers Care Client Business Manager Name Role Phone Laureano Bennett MD Primary Care Provider [phone] Laureano Bennett MD Unavailable [phone] Unavailable [phone] Encounter Details Date Type Department Care [...] st Contact Info) Description 07/26/2023 8:00 AM SHIP BOAT OR BARGE MATE Appointment [facility] Maternal Medicine [place] [address] [facility] [address] [place] [phone] Rayshawn Nunez MD [address] [place], [place] [address] 07/26/2023 8:30 AM SHIP BOAT OR BARGE MATE Office Visit [facility] Medicine [place] [address] [address] [facility] [address] [place] [phone] Rayshawn Nunez MD [address] [place], [place] [address] 07/29/2023 8:00 AM SHIP BOAT OR BARGE MATE Office Visit [address] [phone] Laureano Bennett MD [address] [place] [address] 07/29/2023 11:45 AM SHIP BOAT OR BARGE MATE Appointment [facility] M[facility] Medicine [place] [address] [address] [facility] [address] [place] [phone] Jennifer Boyer MD [address] [place], [place] 78[address] 07/29/2023 12:15 PM SHIP BOAT OR BARGE MATE Office Visit [facility] Maternal Medicine [place] [address] [phone] Jennifer Boyer MD [address] [place] [address] 08/05/2023 8:00 AM SHIP BOAT OR BARGE MATE Office Visit [address] [phone] Laureano Bennett MD [address] [place] [address] 208962 08/23/2023 Hospital Encounter [facility] [address] [place] [phone] Laureano Bennett MD [address] [place] [address] [phone] documented as of this encounter Visit Diagnoses Not on filedocumented in this encounter Additional Health Concerns Assessment Noted Time PHQ-9 Depression Total Score: 0 05/17/20 23 9:06 AM SHIP BOAT OR BARGE MATE documented as of this encounter Care Teams Client Business Manager Relationship Specialty Start Date End Date Laureano Bennett MD [address] [place] [address]855 PCP - General Family Medicine 07/07/20 Laureano Bennett MD [address] [place] [address]453 Assigned PCP 08/14/[address] [facility] [place] [address] [place] [address] Radiologic Technology Instructor Dietitian, Registered 06/14/23 documented as of this encounter
--- OUTSIDE RECORDS SUMMARY | 2023-07-22 16:05 | XMS_ITS | Encounter Summary ---
Author Name Unknown Organization [place] Address [address] [place] [address] Care Team Providers Care Textile Technical Officer Name Role Phone Laureano Bennett MD Primary Care Provider [phone] Laureano Bennett MD Unavailable [phone] Unavailable [phone] Reason for Visit * Reason Comments Care Encounter Details Date Type Department Care Team ([facility] st Contact Info) Description 07/19/2023 4:40 PM POULTRY BARN MANAGER Office Visit [address] [phone] Laureano Bennett MD [address] [place] [address] Encounter for supervision of other normal [...] Comments Blood Pressure 110/58 07/19/2023 4:36 PM POULTRY BARN MANAGER Pulse 92 07/19/2023 4:36 PM POULTRY BARN MANAGER Temperature 36.1 ??C (97 ??F) 07/19/2023 4:36 PM POULTRY BARN MANAGER Respiratory Rate - - Oxygen Saturation 97% 07/19/2023 4:36 PM POULTRY BARN MANAGER Inhaled Oxygen Concentration - - Weight 82.1 kg (181 lb) 07/19/2023 4:36 PM POULTRY BARN MANAGER Height - - Body Mass Index 27.12 07/15/2023 8:48 AM POULTRY BARN MANAGER documented in this encounter Progress Notes * [...] monitor kick counts and regular BPP's at [facility]. She would like to labor in a bath tub and is meeting a provider at the [facility] to discuss options there Return in 1 week GBS at 36 weeks is planned TRY BARN MANAGER documented in this encounter Plan of Treatment Upcoming Encounters Date Type Department Care Team (Late st Contact Info) Description 07/26/2023 8:00 AM POULTRY BARN MANAGER Appointment [facility] Medicine [place] [address] [address] [facility] [address] [place] [phone] Rayshawn Nunez MD [address] [place], [place] [address] 07/26/2023 8:30 AM POULTRY BARN MANAGER Office Visit [facility] Maternal Medicine [place] [address] [address] [facility] [address] [place] [phone] Rayshawn Nunez MD [address] [place] [address] 07/29/2023 8:00 AM POULTRY BARN MANAGER Office Visit [address] [place] [address] Laureano Bennett MD [address] [place] [address] 07/29/2023 11:45 AM POULTRY BARN MANAGER Appointment [facility] Maternal Medicine [place] [address] [address] [facility] [address] [place] [phone] Jennfier Boyer MD [address] [place] [address] 07/29/2023 12:15 PM POULTRY BARN MANAGER Office Visit [facility] Maternal Medicine [facility] [place] [address] [facility] [address] [place] [phone] Jennifer Boyer MD [address] [place] [address] 08/05/2023 8:00 AM POULTRY BARN MANAGER Office Visit [address] [phone] Laureano Bennett MD [address] [place] [address] [phone] 08/23/2023 Hospital Encounter [facility] [address] [place] [phone] [place] [address] [place] [address] [phone] documented as of this encounter Procedures Procedure Name Priority Date/Time Associated Diagnosis Comments GLUCOSE ALBUMIN OB URINE Routine 07/19/2023 4:28 PM POULTRY BARN MANAGER Encounter for supervision of other normal in third trimester documented in this encounter Results * Glucose and albumin, OB urine (07/19/2023 4:28 PM POULTRY BARN MANAGER) Protein Albumin Urine Negative Negative mg/dL 07/19/2023 4:30 PM POULTRY BARN MANAGER [facility] Glucose Urine Negative Negative mg/dL 07/19/2023 4:30 PM POULTRY BARN MANAGER [facility] Urine MID-STREAM URINE SPECIMEN / Unknown Non-blood Collection / Unknown 07/19/2023 4:28 PM POULTRY BARN MANAGER 07/19/2023 4:28 PM POULTRY BARN MANAGER Laureano Bennett MD LAB - URINE ORDERABL ES [facility] [address] [facility] Lab (no room number, 1st floor of clinic) [place] [address], [facility] [phone] documented in this encounter Visit Diagnoses Diagnosis Encounter for supervision of other normal in third trimester- Primary 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 documented in this encounter Additional Health Concerns Assessment Noted Time PHQ-9 Depression Total Score: 0 05/17/20 23 9:06 AM POULTRY BARN MANAGER documented as of this encounter Care Teams Textile Technical Officer Relationship Specialty Start Date End Date Laureano Bennett MD [address] [place] [address] PCP - General Family Medicine 07/07/20 Laureano Bennett MD [address] [place] [address] [phone] Assigned PCP 08/14/[address] [facility] [place] [address] [place] [address] Mechanist Dietitian, Registered 06/14/23 documented as of this encounter
--- OUTSIDE RECORDS SUMMARY | 2023-07-22 16:05 | XMS_ITS | Encounter Summary ---
Author Name Unknown Organization [place] Address [address] [facility] [place] [address] Care Team Providers Care Truss Assembler Name Role Phone Laureano Bennett MD Primary Care Provider [phone] Laureano Bennett MD Unavailable [phone] Unavailable [phone] Encounter Details Date Type Department Care [...] st Contact Info) Description 07/26/2023 8:00 AM ELECTRONIC SERVICE TECHNICIAN Appointment [facility] Maternal Medicine [place] [address] [address] [facility] [address] [place] [phone] Rayshawn Nunez MD [address] [place], [place] [address] 07/26/2023 8:30 AM ELECTRONIC SERVICE TECHNICIAN Office Visit [facility] Medicine [place] [address] [address] [facility] [address] [place] [phone] Rayshawn Nunez MD [address] [place], [place] [address] 07/29/2023 8:00 AM ELECTRONIC SERVICE TECHNICIAN Office Visit [address] [phone] Laureano Bennett MD [address] [place] [address] 07/29/2023 11:45 AM ELECTRONIC SERVICE TECHNICIAN Appointment [facility] Maternal Medicine [place] [address] [address] [facility] [address] [place] [phone] Jennifer Boyer MD [address] [place], [place] [address] 07/29/2023 12:15 PM ELECTRONIC SERVICE TECHNICIAN Office Visit [facility] Maternal Medicine [place] [address] [phone] Jennifer Boyer MD [address] [place] [address] 08/05/2023 8:00 AM ELECTRONIC SERVICE TECHNICIAN Office Visit [address] [phone] Laureano Bennett MD [address] [place] [address] [phone] 08/23/2023 Hospital Encounter M [facility] [address] [place] [address] Laureano Bennett MD [address] [place] [address] 675262 documented as of this encounter Visit Diagnoses Not on filedocumented in this encounter Additional Health Concerns Assessment Noted Time PHQ-9 Depression Total Score: 0 05/17/20 23 9:06 AM ELECTRONIC SERVICE TECHNICIAN documented as of this encounter Care Teams Truss Assembler Relationship Specialty Start Date End Date Laureano Bennett MD [address] [place] [address] PCP - General Family Medicine 07/07/20 Laureano Bennett MD [address] [place] [address]199 Assigned PCP 08/14/[address] [facility] [place] [address] [place] [address] Special Agent Group Insurance Dietitian, Registered 06/14/23 documented as of this encounter
--- OUTSIDE RECORDS SUMMARY | 2023-07-22 16:05 | XMS_ITS | Encounter Summary ---
Author Name Unknown Organization [place] Address [address] [facility] [place] [address] Care Team Providers Care Bisque Tile Burner Name Role Phone Laureano Bennett MD Primary Care Provider [phone] Laureano Bennett MD Unavailable [phone] Unavailable [phone] Reason for Visit * Reason Comments Ultrasound BPP-GDMA2, hx term I UFD Encounter Details Date Type Department Care Team ([facility] st Contact Info) Description 07/22/2023 9:15 AM BIOSTATISTICS PROFESSOR Office Visit [facility] Maternal Medicine [facility] [place] [address] [facility] [address] [place] [address] Sheila Jones MD [address] [address] [place], [place] 227914 Insulin controlled gestational diabetes mellitus (GDM) in third trimester (Primary Dx); History of IUFD Social History Tobacco Use Types Packs/Day Years [...] as of this encounter Progress Notes * Sheila Jones MD - 07/22/2023 9:15 AM CST Please see Imaging tab under Chart Review for details of today's visit. Sheila Jones TATISTICS PROFESSOR documented in this encounter Nursing Notes * Addis Olivares RN - 07/22/2023 9:15 AM CST Patient reports + movement, no pain, no contractions, leaking of fluid, or bleeding. Reports blood sugar values fasting >95 and 1 hr post prandial <140 with the exception of post dinner values which generally run >140. SBAR given to MARYAM MAYERS, see their note in Epic. TATISTICS PROFESSOR documented in this encounter Plan of Treatment Upcoming Encounters Date Type Department Care Team (Late st Contact Info) Description 07/26/2023 8:00 AM BIOSTATISTICS PROFESSOR Appointment [facility] Maternal Medicine [place] [address] [phone] Rayshawn Nunez MD [address] [place] [address] 07/26/2023 8:30 AM BIOSTATISTICS PROFESSOR Office Visit [facility] Maternal Medicine [place] [address] [facility] [address] [place] [phone] Rayshawn Nunez MD [address] [place] [address] 07/29/2023 8:00 AM BIOSTATISTICS PROFESSOR Office Visit [address] [phone] [place] [address] [place] [address] 599692 07/29/2023 11:45 AM BIOSTATISTICS PROFESSOR Appointment [facility] Maternal Medicine [place] [address] [facility] [address] [place] [phone] Jennifer Boyer MD [address] [place] [address] 07/29/2023 12:15 PM BIOSTATISTICS PROFESSOR Office Visit [facility] Maternal Medicine [place] [address] [facility] [address] [place] [phone] Jennifer Boyer MD [address] [place] [address] 08/05/2023 8:00 AM BIOSTATISTICS PROFESSOR Office Visit [address] [phone] Laureano Bennett MD [address] [place] [address] 804312 08/23/2023 Hospital Encounter M [facility] [address] [place] [phone] Laureano Bennett MD [address] [place] [address] [phone] documented as of this encounter Visit Diagnoses Diagnosis Insulin controlled gestational diabetes mellitus (GDM) in third trimester- Primary History of IUFD documented in this encounter Additional Health Concerns Assessment Noted Time PHQ-9 Depression Total Score: 0 05/17/20 23 9:06 AM BIOSTATISTICS PROFESSOR documented as of this encounter Care Teams Bisque Tile Burner Relationship Specialty Start Date End Date Laureano Bennett MD [address] [place] [address] [phone] PCP - General Family Medicine 07/07/20 Laureano Bennett MD [address] [place] [address] Assigned PCP 08/14/[address] [address] Time Clock Inspector Dietitian, Registered 06/14/23 documented as of this encounter
--- OUTSIDE RECORDS SUMMARY | 2023-07-22 16:05 | XMS_ITS | Encounter Summary ---
Author Name Unknown Organization [place] Address [address] [facility] [place] [address] Care Team Providers Care Gas Plant Specialist Name Role Phone Laureano Bennett MD Primary Care Provider [phone] Laureano Bennett MD Unavailable [phone] Unavailable [phone] Encounter Details Date Type Department Care [...] st Contact Info) Description 07/26/2023 8:00 AM CORK GRINDER Appointment [facility] Maternal Medicine [place] [address] [address] [employer] [address] [facility] [address] [place] [phone] Rayshawn Nunez MD [address] [place], [place] [address] 07/26/2023 8:30 AM CORK GRINDER Office Visit [facility] Medicine [place] [address] [address] [employer] [address] [place] [phone] Rayshawn Nunez MD [address] [place], [place] 4039[address] 07/29/2023 8:00 AM CORK GRINDER Office Visit [address] [phone] Laureano Bennett MD [address] [place] [address] 07/29/2023 11:45 AM CORK GRINDER Appointment [facility] Maternal Medicine [place] [address] [address] [facility] [address] [place] [phone] Jennifer Boyer MD [address] [place] [address] 07/29/2023 12:15 PM CORK GRINDER Office Visit [facility] Maternal Medicine [facility] [place] [address] [facility] [address] [place] [address] Jennifer Boyer MD [address] [place] [address] 08/05/2023 8:00 AM CORK GRINDER Office Visit [address] [phone] aLureano Bennett MD [address] [place] [address] 994262 08/23/2023 Hospital Encounter [facility] [address] [place] [phone] Laureano Bennett MD [address] [place] [address] [phone] documented as of this encounter Visit Diagnoses Not on filedocumented in this encounter Additional Health Concerns Assessment Noted Time PHQ-9 Depression Total Score: 0 05/17/20 23 9:06 AM CORK GRINDER documented as of this encounter Care Teams Gas Plant Specialist Relationship Specialty Start Date End Date Laureano Bennett MD [address] [place] [address] [phone] PCP - General Family Medicine 07/07/20 Laureano Bennett MD [address] [place] [address] [phone] Assigned PCP 08/14/[address] [facility] [place] [address] [place] [address] Rate And Cost Analyst Dietitian, Registered 06/14/23 documented as of this encounter
--- OUTSIDE RECORDS SUMMARY | 2023-07-22 16:06 | XMS_ITS | Encounter Summary ---
Author Name Unknown Organization [place] Address [address] [place] [address] Care Team Providers Care Remote Sensing Technician Name Role Phone Renee Bennett MD Primary Care Provider [phone] Renee Bennett MD Unavailable [phone] Unavailable [phone] Reason for Referral * Diagnostic Imaging Ultrasound (Routine) - Pending Review Specialty Diagnoses / Procedures Referred By Tim nathan Referred To Contact Radiology. Diagnoses Gestational diabetes mellitus (GDM) in third trimester controlled on oral hypoglycemic drug History of IUFD Procedures Maternal BPP Single Jennifer Boyer MD [address] [address] Referral ID Status Reason Start Date Expiration Date V isits Requested Visits Authorized [id number] Pending Review 07/01/2023 06/30/2024 1 1 ICER Reason for Visit * Diagnostic Imaging Ultrasound (Routine) - Pending Review Specialty Diagnoses / Procedures Referred By Tim nathan Referred To Contact Radiology. Diagnoses Gestational diabetes mellitus (GDM) in third trimester controlled on oral hypoglycemic drug History of IUFD Procedures Maternal BPP Single Jennifer Boyer MD [address] [place] [address] Referral ID Status Reason Start Date Expiration Date V isits Requested Visits Authorized [id number] Pending Review 07/01/2023 06/30/2024 1 1 Encounter Details Date Type Department Care Team (Latest Contact Info) Description 2023 8:00 AM BUN ICER - 2023 11:59 PM BUN ICER Hospital Encounter [facility] Maternal Medicine Center [place] [address] [facility] [address] [place] [phone] Rayshawn Nunez MD [address] [facility] [address] [place] [address] Gestational diabetes mellitus (GDM) in [...] Renee Bennett MD - 2023 10:29 AM BUN ICER Dear Yu, Here is a summary of your recent test results: Your biophysical profile looks good and we can further discuss Regarding breech presentation at your next visit. Thank you very much for trusting me and [facility]. Have a peaceful day. Healthy regards, Prasad Bennett MD ICER documented in this encounter Plan of Treatment Upcoming Encounters Date Type Department Care Team (Late st Contact Info) Description 07/26/2023 8:00 AM BUN ICER Appointment [facility] Maternal Medicine [facility] [address] [facility] [address] [place] [phone] Rayshawn Nunez MD [address] [place], [place] [address] 07/26/2023 8:30 AM BUN ICER Office Visit [facility] Medicine [facility] [address] [facility] [address] [place] [phone] Rayshawn Nunez MD [address] [place], [place] [address] 07/29/2023 8:00 AM BUN ICER Office Visit [address] [phone] Renee Bennett MD [address] [place] [address] [phone] 07/29/2023 11:45 AM BUN ICER Appointment [facility] Maternal Medicine [facility] [address] [facility] [address] [place] [address] Jennifer Boyer MD [address] [place], [place] [address] 07/29/2023 12:15 PM BUN ICER Office Visit [facility] Maternal Medicine [facility] [address] [address] Jennifer Boyer MD [address] [place], [place] 5[address] 08/05/2023 8:00 AM BUN ICER Office Visit [address] [phone] Renee Bennett MD [address] [place] [address] [phone] 08/23/2023 Hospital Encounter [facility] Birthplace [address] [place] [address] Renee Bennett MD [address] [place] [address] [phone] documented as of this encounter Procedures Procedure Name Priority Date/Time Associated Diagnosis Comments [facility] BPP SINGLE Routine 2023 8:41 AM BUN ICER Gestational diabetes mellitus (GDM) in third trimester controlled on oral hypoglycemic drug Prior with demise and current in third trimester documented in this encounter Results * Maternal BPP Single (2023 8:41 AM BUN ICER) Anatomical Region Laterality Modality Ultrasound 2023 8:14 AM BUN ICER Impressions 2023 8:44 AM BUN ICER IMPRESSION ----- 1. [place] intrauterine at 34w 0d gestational age here for testing. 2. The fetus is in BREECH presentation. The amniotic fluid volume is normal. 3. The BPP is 01/25. Narrative 2023 8:44 AM BUN ICER ?BPP ----- Pat. Name: DOREENGINETTEYU ? Study Date: ??2023 8:14am Pat. NO: ??[id number] ?Referring ??: RENEE BENNETT Site: ??[facility] [employer]am[employer] Supervisor: Kirstin Gold RDMS : ??1995 ?Age: ?? [...] RENEE Study Date: 2023 8:14am Pat. NO: [id number] Referring MD: RENEE BENNETT Site: [facility] [employer] Enameling Supervisor: Kirstin Gold RDMS : 1995 Age: 28 [...] Total Score: 0 05/17/20 23 9:06 AM BUN ICER documented as of this encounter Care Teams Remote Sensing Technician Relationship Specialty Start Date End Date Renee Bennett MD [address] [place] [address] PCP - General Family Medicine 07/07/20 Renee Bennett MD [address] [place] [address] Assigned PCP 08/14/[address] [place] [address] [place] [address] Import/Export Freight Forwarder Dietitian, Registered 06/14/23 documented as of this encounter
--- OUTSIDE RECORDS SUMMARY | 2023-07-22 16:06 | XMS_ITS | Encounter Summary ---
Author Name Unknown Organization [facility] Address [address] [place] [address] Care Team Providers Care Fish Liver Sorter Name Role Phone Laureano Bennett MD Primary Care Provider [phone] Laureano Bennett MD Unavailable [phone] Unavailable [phone] Encounter Details Date Type Department Care [...] st Contact Info) Description 07/26/2023 8:00 AM MEDIA SERVICES SPECIALIST Appointment [facility] Maternal Medicine [place] [address] [facility] [address] [place] [phone] Rayshawn Nunez MD [address] [place], [place] [address] 07/26/2023 8:30 AM MEDIA SERVICES SPECIALIST Office Visit [facility] Medicine [place] [address] [address] [facility] [address] [place] [phone] Rayshawn Nunez MD [address] [place], [place] [address] 07/29/2023 8:00 AM MEDIA SERVICES SPECIALIST Office Visit [address] [phone] Laureano Bennett MD [address] [place] [address] 07/29/2023 11:45 AM MEDIA SERVICES SPECIALIST Appointment [facility] Maternal Medicine [place] [address] [address] [facility] [address] [place] [phone] Jennifer Boyer MD [address] [place], [place] [address] 07/29/2023 12:15 PM MEDIA SERVICES SPECIALIST Office Visit [facility] Maternal Medicine [place] [address] [phone] Jennifer Boyer MD [address] [place] [address] 08/05/2023 8:00 AM MEDIA SERVICES SPECIALIST Office Visit [address] [phone] Laureano Bennett MD [address] [place] [address] [phone] 08/23/2023 Hospital Encounter [facility] [address] [place] [phone] Laureano Bennett MD [address] [place] [address] [phone] documented as of this encounter Visit Diagnoses Not on filedocumented in this encounter Additional Health Concerns Assessment Noted Time PHQ-9 Depression Total Score: 0 05/17/20 23 9:06 AM MEDIA SERVICES SPECIALIST documented as of this encounter Care Teams Fish Liver Sorter Relationship Specialty Start Date End Date Laureano Bennett MD [address] [place] [address] PCP - General Family Medicine 07/07/20 Laureano Bennett MD [address] [place] [address] Assigned PCP 08/14/[address] [facility] [place] [address] [place] [address] Funds Transfer Clerk Dietitian, Registered 06/14/23 documented as of this encounter
--- OUTSIDE RECORDS SUMMARY | 2023-07-22 16:06 | XMS_ITS | Encounter Summary ---
Author Name Unknown Organization [facility] Address [address] [place] [address] Care Team Providers Care Die Filer Name Role Phone Laureano Bennett MD Primary Care Provider [phone] Laureano Bennett MD Unavailable [phone] Unavailable [phone] Reason for Visit * Reason Comments Care Encounter Details Date Type Department Care Team ([facility] st Contact Info) Description 07/04/2023 8:20 AM CREMATORY OPERATOR Office Visit [address] [phone] Laureano Bennett MD [address] [place] [address] Encounter for supervision of other normal [...] Comments Blood Pressure 110/64 07/04/2023 8:18 AM CREMATORY OPERATOR Pulse 102 07/04/2023 8:18 AM CREMATORY OPERATOR Temperature 36.1 ??C (97 ??F) 07/04/2023 8:18 AM CREMATORY OPERATOR Respiratory Rate 16 07/04/2023 8:18 AM CREMATORY OPERATOR Oxygen Saturation 99% 07/04/2023 8:18 AM CREMATORY OPERATOR Inhaled Oxygen Concentration - - Weight 80.3 kg (177 lb) 07/04/2023 8:18 AM CREMATORY OPERATOR Height 174 cm (5' 8.5) 07/04/2023 8:18 AM CREMATORY OPERATOR Body Mass Index 26.52 07/04/2023 8:18 AM CREMATORY OPERATOR documented in this encounter Progress Notes [...] education. Hypoglycemia treatment options dicussed as well. ATORY OPERATOR documented in this encounter Miscellaneous Notes * Result Encounter Note - Laureano Bennett MD - 07/04/2023 8:20 AM CREMATORY OPERATOR Dear Yu, Here is a summary of your recent test results: -All of your labs are normal in regards to antiphospholipid syndrome For additional lab test information, www.testing.com is a very good reference. Thank you very much for trusting me and [facility]. Have a peaceful day. Healthy regards, Prasad Bennett MD ATORY OPERATOR documented in this encounter Plan of Treatment Upcoming Encounters Date Type Department Care Team (Late st Contact Info) Description 07/26/2023 8:00 AM CREMATORY OPERATOR Appointment [facility] Medicine [facility] [address] [facility] [address] [place] [phone] Rayshawn Nunez MD [address] [place] [address] 07/26/2023 8:30 AM CREMATORY OPERATOR Office Visit [facility] Medicine [facility] [address] [facility] [address] [place] [phone] Rayshawn Nunez MD [address] [place], [place] [address] 07/29/2023 8:00 AM CREMATORY OPERATOR Office Visit [address] [phone] Laureano Bennett MD [address] [place] [address] 07/29/2023 11:45 AM CREMATORY OPERATOR Appointment [facility] Maternal Medicine [facility] [address] [facility] [address] [place] [address] Jennifer Boyer MD [address] [place] [address] 07/29/2023 12:15 PM CREMATORY OPERATOR Office Visit [facility] Maternal Medicine [facility] [address] [facility] [address] [place] [phone] Jennifer Boyer MD [address] [place] [address] 08/05/2023 8:00 AM CREMATORY OPERATOR Office Visit [address] [phone] Laureano Bennett MD [address] [place] [address] [phone] 08/23/2023 Hospital Encounter [facility] [address] [place] [address] Laureano Bennett MD [address] [place] [address] 488302 documented as of this encounter Procedures Procedure Name Priority Date/Time Associated Diagnosis Comments CARDIOLIPIN BRENDEN IGG AND IGM Routine 07/04/2023 9:42 AM CREMATORY OPERATOR History of stillbirth BETA 2 GLYCOPROTEIN ANTIBODIES IGG IGM Routine 07/04/2023 9:42 AM CREMATORY OPERATOR History of stillbirth LUPUS ANTICOAGULANT PANEL Routine 07/04/2023 9:42 AM CREMATORY OPERATOR History of stillbirth GLUCOSE ALBUMIN OB URINE Routine 07/04/2023 8:20 AM CREMATORY OPERATOR Encounter for supervision of other normal in second trimester documented in this encounter Results * Beta 2 Glycoprotein Antibodies IGG IGM (07/04/2023 9:42 AM CREMATORY OPERATOR) Beta 2 Glycoprotein 1 Antibody IgG 1.0 <7.0 U/mL 07/06/2023 11:27 AM CREMATORY OPERATOR SPECIALTY CORE/PROT/END O Comment:Negative Beta 2 Glycoprotein 1 Antibody IgM 3.3 <7.0 U/mL 07/06/2023 11:27 AM CREMATORY OPERATOR SPECIALTY CORE/PROT/END O Comment:Negative Blood BLOOD SPECIMEN / Unknown Venipuncture / Unknown 07/04/2023 9:42 AM CREMATORY OPERATOR 07/04/2023 9:43 AM CREMATORY OPERATOR Laureano Bennett MD LAB - BLOOD ORDERABL ES UM SPECIALTY CORE/PROT/ENDO UM Specialty Core/Prot/Endo [address] [facility], Room [address] [phone] * Cardiolipin Brenden IgG and IgM (07/04/2023 9:42 AM CREMATORY OPERATOR) Cardiolipin Brenden IgG Instrument Value <2.0 <10.0 GPL-U/mL 07/06/2023 11:27 AM CREMATORY OPERATOR SPECIALTY CORE/PROT/END O Cardiolipin Antibody IgG Negative Negative 07/06/2023 11:27 AM CREMATORY OPERATOR UM SPECIALTY CORE/PROT/END O Cardiolipin Brenden IgM Instrument Value 2.2 <10.0 MPL-U/mL 07/06/2023 11:27 AM CREMATORY OPERATOR UM SPECIALTY CORE/PROT/END O Cardiolipin Antibody IgM Negative Negative 07/06/2023 11:27 AM CREMATORY OPERATOR SPECIALTY CORE/PROT/END O Blood BLOOD SPECIMEN / Unknown Venipuncture / Unknown 07/04/2023 9:42 AM CREMATORY OPERATOR 07/04/2023 9:43 AM CREMATORY OPERATOR Laureano Bennett MD LAB - BLOOD ORDERABL ES UM SPECIALTY CORE/PROT/ENDO UM Specialty Core/Prot/Endo [address] [facility] [address], Room [address] [phone] * Lupus Anticoagulant Panel (07/04/2023 9:42 AM CREMATORY OPERATOR) INR 1.04 0.85 - 1.15 4 4:15 PM CREMATORY OPERATOR UM SPECIAL COAGULATION Thrombin Time 17.0 13.0 - 19.0 Seconds 4 4:15 PM CREMATORY OPERATOR UM SPECIAL COAGULATION PTT Ratio 0.97 <1.21 4 4:15 PM CREMATORY OPERATOR UM SPECIAL COAGULATION DRVVT Screen Ratio 0.91 <1.08 4 4:15 PM CREMATORY OPERATOR UM SPECIAL COAGULATION Lupus Result Negative Negative 4:15 PM CREMATORY OPERATOR UM SPECIAL COAGULATION Lupus Interpretation The INR is normal. APTT ratio is normal. ?? DRVVT Screen ratio is normal. Thrombin time is normal. NEGATIVE TEST; A LUPUS ANTICOAGULANT WAS NOT DETECTED IN THIS SPECIMEN WITHIN THE LIMITS OF THE TESTING REPERTOIRE. If the clinical picture is strongly suggestive of an antiphospholipid syndrome, recommend anticardiolipin and jbqd-8-zyulyrliuuv n (IgG and IgM) antibody tests. Salina James MD, PhD [facility] 4 4:15 PM CREMATORY OPERATOR UM SPECIAL COAGULATION Blood BLOOD SPECIMEN / Unknown Venipuncture / Unknown 07/04/2023 9:42 AM CREMATORY OPERATOR 07/04/2023 9:43 AM CREMATORY OPERATOR Laureano Bennett MD LAB - BLOOD ORDERABL ES UM SPECIAL COAGULATION UM Special Coagulation [address] [facility] [address], [address] [place] [address], [facility] [phone] * (ABNORMAL) Glucose and albumin, OB urine (07/04/2023 8:20 AM CREMATORY OPERATOR) Protein Albumin Urine Trace(A) Negative mg/dL 07/04/2023 8:22 AM CREMATORY OPERATOR [facility] Glucose Urine Negative Negative mg/dL 07/04/2023 8:22 AM CREMATORY OPERATOR [facility] Urine MID-STREAM URINE SPECIMEN / Unknown Non-blood Collection / Unknown 07/04/2023 8:20 AM CREMATORY OPERATOR 07/04/2023 8:20 AM CREMATORY OPERATOR Laureano Bennett MD LAB - URINE ORDERABL ES [facility] LABORAT[facility] Lab [address] [place] [address] Lab (no room number, 1st floor of clinic) [place] [address], [facility] [phone] documented in this encounter Visit Diagnoses Diagnosis Encounter for supervision of other normal in second trimester- Primary Gestational diabetes mellitus (GDM), antepartum, gestational diabetes method of control unspecified History of stillbirth with other poor reproductive history documented in this encounter Additional Health Concerns Assessment Noted Time PHQ-9 Depression Total Score: 0 05/17/20 9:06 AM CREMATORY OPERATOR documented as of this encounter Care Teams Die Filer Relationship Specialty Start Date End Date Laureano Bennett MD [address] [place] [address] PCP - General Family Medicine 07/07/20 Laureano Bennett MD [address] [place] [address] Assigned PCP 08/14/[address] [place] [address] [employer] Supervisor Dietitian, Registered 06/14/23 documented as of this encounter
--- OUTSIDE RECORDS SUMMARY | 2023-07-22 16:06 | XMS_ITS | Encounter Summary ---
Author Name Unknown Organization [facility] Address [address] [place] [address] Care Team Providers Care Assembler Metal Furniture Name Role Phone Renee Bennett MD Primary Care Provider [phone] Renee Bennett MD Unavailable [phone] Unavailable [phone] Reason for Referral * Diagnostic Imaging Ultrasound (Routine) - Pending Review Specialty Diagnoses / Procedures Referred By Tim nathan Referred To Contact Radiology. Diagnoses Gestational diabetes mellitus (GDM) in third trimester controlled on oral hypoglycemic drug History of IUFD Procedures Maternal BPP Single Jennifer Boyer MD [address] [address] Referral ID Status Reason Start Date Expiration Date V isits Requested Visits Authorized [id number] Pending Review 07/01/2023 06/30/2024 1 1 IFIED SURGICAL TECH/FIRST ASSISTANT Reason for Visit * Diagnostic Imaging Ultrasound (Routine) - Pending Review Specialty Diagnoses / Procedures Referred By Tim nathan Referred To Contact Radiology. Diagnoses Gestational diabetes mellitus (GDM) in third trimester controlled on oral hypoglycemic drug History of IUFD Procedures Maternal BPP Single Jennifer Boyer MD [address] [place] [address] Referral ID Status Reason Start Date Expiration Date V isits Requested Visits Authorized [id number] Pending Review 07/01/2023 06/30/2024 1 1 Encounter Details Date Type Department Care Team (Latest Contact Info) Description 07/06/2023 3:30 PM CERTIFIED SURGICAL TECH/FIRST ASSISTANT - 07/06/2023 11:59 PM CERTIFIED SURGICAL TECH/FIRST ASSISTANT Hospital Encounter [facility] Maternal Medicine [facility] [place] [address] [facility] [address] [place] [phone] Tyshawn Mccurdy MD [address] [facility] [address] [place] [address] Gestational diabetes mellitus (GDM) in [...] Contact Info) Description 07/26/2023 8:00 AM CERTIFIED SURGICAL TECH/FIRST ASSISTANT Appointment [facility] Medicine [place] [address] [address] [facility] [address] [place] [phone] Rayshawn Nunez MD [address] [place] [address] 07/26/2023 8:30 AM CERTIFIED SURGICAL TECH/FIRST ASSISTANT Office Visit [facility] Medicine [place] [address] [address] [facility] [address] [place] [phone] Rayshawn Nunez MD [address] [place] [address] 07/29/2023 8:00 AM CERTIFIED SURGICAL TECH/FIRST ASSISTANT Office Visit [address] [place] [phone] Renee Bennett MD [address] [place] [address] 1565[address] 07/29/2023 11:45 AM CERTIFIED SURGICAL TECH/FIRST ASSISTANT Appointment [facility] Maternal Medicine [place] [address] [address] [facility] [address] [place] [phone] Jennifer Boyer MD [address] [place] [address] 07/29/2023 12:15 PM CERTIFIED SURGICAL TECH/FIRST ASSISTANT Office Visit [facility] [place] [address] [facility] [address] [place] [phone] Jennifer Boyer MD [address] [place] [address] 08/05/2023 8:00 AM CERTIFIED SURGICAL TECH/FIRST ASSISTANT Office Visit [address] [phone] Renee Bennett MD [address] [place] [address] 068492 08/23/2023 Hospital Encounter [facility] [address] [place] [address] Reene Bennett MD [address] [place] [address] [phone] documented as of this encounter Procedures Procedure Name Priority Date/Time Associated Diagnosis Comments MFM BPP SINGLE Routine 07/06/2023 3:49 PM CERTIFIED SURGICAL TECH/FIRST ASSISTANT Gestational diabetes mellitus (GDM) in third trimester controlled on oral hypoglycemic drug Prior with demise and current in third trimester documented in this encounter Results * Maternal BPP Single (07/06/2023 3:49 PM CERTIFIED SURGICAL TECH/FIRST ASSISTANT) Anatomical Region Laterality Modality Ultrasound 07/06/2023 3:32 PM CERTIFIED SURGICAL TECH/FIRST ASSISTANT Impressions 07/06/2023 3:53 PM CERTIFIED SURGICAL TECH/FIRST ASSISTANT IMPRESSION ----- 1) Normal amniotic fluid volume. 2) BPP is reassuring. Narrative 07/06/2023 3:53 PM CERTIFIED SURGICAL TECH/FIRST ASSISTANT ?BPP ----- Pat. Name: YU RENEE ? Study Date: ??07/06/2023 3:32pm Pat. NO: ??[id number] ?Referring ??MD: RENEE BENENTT Site: ??[facility] ? Tv Host: Renetta Garcia RDMS : ??1995 ?Age: ?? [...] RENEE Study Date: 07/06/2023 3:32pm Pat. NO: [id number] Referring MD: RENEE BENNETT Site: [facility] Tv Host: Renetta Garcia RDMS : 1995 Age: 27 [...] 2) BPP is reassuring. Jennifer Boyer MD [facility] [place] ORDERAB LES documented in this encounter Visit Diagnoses Diagnosis Gestational diabetes mellitus (GDM) in third trimester controlled on oral hypoglycemic drug Prior with demise and current in third trimester documented in this encounter Additional Health Concerns Assessment Noted Time PHQ-9 Depression Total Score: 0 05/17/20 23 9:06 AM CERTIFIED SURGICAL TECH/FIRST ASSISTANT documented as of this encounter Care Teams Assembler Metal Furniture Relationship Specialty Start Date End Date Renee Bennett MD [address] [place] [address] [phone] PCP - General Family Medicine 07/07/20 Renee Bennett MD [address] [place] [address] Assigned PCP 08/14/[address] [place] [address] [place] [address] Fleet Operations Manager Dietitian, Registered 06/14/23 documented as of this encounter
--- OUTSIDE RECORDS SUMMARY | 2023-07-22 16:06 | XMS_ITS | Encounter Summary ---
Author Name Unknown Organization [facility] Address [address] [facility] [place] [address] Care Team Providers Care Fish Straightener Name Role Phone Laureano Bennett MD Primary Care Provider [phone] Laureano Bennett MD Unavailable [phone] Unavailable [phone] Encounter Details Date Type Department Care [...] st Contact Info) Description 07/26/2023 8:00 AM RESTAURANT GREETER Appointment [facility] Maternal Medicine [place] [address] [address] [facility] [address] [place] [phone] Rayshawn Nunez MD [address] [place], [place] [address] 07/26/2023 8:30 AM RESTAURANT GREETER Office Visit [facility] Medicine [place] [address] [address] [facility] [address] [place] [phone] Rayshawn Nunez MD [address] [place], [place] [phone] 07/29/2023 8:00 AM RESTAURANT GREETER Office Visit [address] [phone] Laureano Bennett MD [address] [place] [address] 07/29/2023 11:45 AM RESTAURANT GREETER Appointment [facility] Maternal Medicine [place] [address] [address] [facility] [address] [place] [phone] Jennifer Boyer MD [address] [place], [place] [address] 07/29/2023 12:15 PM RESTAURANT GREETER Office Visit [facility] Maternal Medicine [place] [address] [phone] Jennifer Boyer MD [address] [place] [address] 08/05/2023 8:00 AM RESTAURANT GREETER Office Visit [address] [phone] Laureano Bennett MD [address] [place] [address] 398802 08/23/2023 Hospital Encounter [facility] [address] [place] [address] Laureano Bennett MD [address] [place] [address] [phone] documented as of this encounter Visit Diagnoses Not on filedocumented in this encounter Additional Health Concerns Assessment Noted Time PHQ-9 Depression Total Score: 0 05/17/20 23 9:06 AM RESTAURANT GREETER documented as of this encounter Care Teams Fish Straightener Relationship Specialty Start Date End Date Laureano Bennett MD [address] [place] [address] PCP - General Family Medicine 07/07/20 Laureano Benentt MD [address] [place] [address] 80766 Assigned PCP 08/14/[address] [facility] [place] [address] [place] [address] Spray Gun Striper Dietitian, Registered 06/14/23 documented as of this encounter
--- OUTSIDE RECORDS SUMMARY | 2023-07-22 16:06 | XMS_ITS | Encounter Summary ---
Author Name Unknown Organization [place] Address [address] [place] [address] Care Team Providers Care Site Acquisition Manager Name Role Phone Laureano Bennett MD Primary Care Provider [phone] Laureano Bennett MD Unavailable [phone] Unavailable [phone] Reason for Visit * Reason Onset Date Comments Decreased Movement 07/08/2023 Encounter Details Date Type Department Care Team ([facility] Contact Info) Description 07/08/2023 Telephone [facility] Maternal Medicine [facility] [place] [address] [facility] [address] [place] [address] Chyna Garcia RN Decreased Movement [...] to notify them she is heading into [facility] labor and delivery DIN[facility] for an NST. Pt verbalized understanding. Chyna Garcia RN [place] SERVICE EQUIPMENT MECHANIC documented in this encounter Plan of Treatment Upcoming Encounters Date Type Department Care Team (Late st Contact Info) Description 07/26/2023 8:00 AM GROUND SERVICE EQUIPMENT MECHANIC Appointment [facility] Maternal Medicine [place] [address] [address] [facility] [address] [place] [phone] Rayshawn Nunez MD [address] [place] [address] 07/26/2023 8:30 AM GROUND SERVICE EQUIPMENT MECHANIC Office Visit [facility] Maternal Medicine [facility] [address] [facility] [address] [place] [phone] Rayshawn Nunez MD [address] [place] [address] 07/29/2023 8:00 AM GROUND SERVICE EQUIPMENT MECHANIC Office Visit [address] [place] [address] Laureano Bennett MD [address] [place] [address] [phone] 07/29/2023 11:45 AM GROUND SERVICE EQUIPMENT MECHANIC Appointment [facility] Maternal Medicine [facility] [address] [facility] [address] [place] [phone] Jennifer Boyer MD [address] [place] [address] 07/29/2023 12:15 PM GROUND SERVICE EQUIPMENT MECHANIC Office Visit [facility] Medicine [facility] [address] [facility] [address] [place] [phone] Jennifer Boyer MD [address] [place], [place] [address] 08/05/2023 8:00 AM GROUND SERVICE EQUIPMENT MECHANIC Office Visit [address] [phone] Laureano Bennett MD [address] [place] [address]372 08/23/2023 Hospital Encounter [facility] [address] [place] [phone] Laureano Bennett MD [address] [place] [address] [phone] documented as of this encounter Visit Diagnoses Not on filedocumented in this encounter Additional Health Concerns Assessment Noted Time PHQ-9 Depression Total Score: 0 05/17/20 23 9:06 AM GROUND SERVICE EQUIPMENT MECHANIC documented as of this encounter Care Teams Site Acquisition Manager Relationship Specialty Start Date End Date Laureano Bennett MD [address] [place] [address] PCP - General Family Medicine 07/07/20 Laureano Bennett MD [address] [place] [address] Assigned PCP 08/14/[address] [place] [address] [place] [address] Telephone Answerer Dietitian, Registered 06/14/23 documented as of this encounter
--- OUTSIDE RECORDS SUMMARY | 2023-07-22 16:06 | XMS_ITS | Encounter Summary ---
Author Name Unknown Organization [facility] Address [address] [facility] [place] [address] Care Team Providers Care Bed Laster Name Role Phone Laureano Bennett MD Primary Care Provider [phone] Laureano Bennett MD Unavailable [phone] Unavailable [phone] Reason for Visit * Reason Comments Ultrasound BPP-GDMA2, hx term I UFD Encounter Details Date Type Department Care Team ([facility] st Contact Info) Description 07/06/2023 4:00 PM CERTIFIED PROFESSIONAL ERGONOMIST Office Visit [facility] [place] [address] [facility] [address] [place] [address] Tyshawn Mccurdy MD [address] [place] [address] Gestational diabetes mellitus (GDM) in [...] for details of today's [place] at the [facility]. Tyshawn Mccurdy MD Maternal- Medicine IFIED PROFESSIONAL ERGONOMIST documented in this encounter Nursing Notes * Addis Olivares RN - 07/06/2023 4:00 PM CST Patient presents to [facility] for BPP at 33w1d due to GDMA2, hx term IUFD. Positive movement. Denies LOF, vaginal bleeding or cramping/contractions. Reports blood sugar values fasting <95 and 1 hrpost prandial <140. SBAR given to [facility] , see their note in Epic. IFIED PROFESSIONAL ERGONOMIST documented in this encounter Plan of Treatment Upcoming Encounters Date Type Department Care Team (Late st Contact Info) Description 07/26/2023 8:00 AM CERTIFIED PROFESSIONAL ERGONOMIST Appointment [facility] [place] [address] [facility] [address] [place] [address] Rayshawn Nunez MD [address] [place] [address] 07/26/2023 8:30 AM CERTIFIED PROFESSIONAL ERGONOMIST Office Visit [facility] [place] [address] [place] [address] Rayshawn Nunez MD [address] [place] [address] 07/29/2023 8:00 AM CERTIFIED PROFESSIONAL ERGONOMIST Office Visit [address] [address] Laureano Bennett MD [address] [place] [address] [phone] 07/29/2023 11:45 AM CERTIFIED PROFESSIONAL ERGONOMIST Appointment [facility] [place] [address] [place] [address] Jennifer Boyer MD [address] [place] [address] 07/29/2023 12:15 PM CERTIFIED PROFESSIONAL ERGONOMIST Office Visit [facility] [place] [address] [place] [address] Jennifer Boyer MD [address] [place] [address] 08/05/2023 8:00 AM CERTIFIED PROFESSIONAL ERGONOMIST Office Visit [address] [address] Laureano Bennett MD [address] [place] [address] [phone] 08/23/2023 Hospital Encounter [facility] [address] [place] [phone] Laureano Bennett MD [address] [place] [address] [phone] documented as of this encounter Visit Diagnoses Diagnosis Gestational diabetes mellitus (GDM) in third trimester controlled on oral hypoglycemic drug- Primary Prior with demise and current in third trimester documented in this encounter Additional Health Concerns Assessment Noted Time PHQ-9 Depression Total Score: 0 05/17/20 23 9:06 AM CERTIFIED PROFESSIONAL ERGONOMIST documented as of this encounter Care Teams Bed Laster Relationship Specialty Start Date End Date Laureano Bennett MD [address] [place] [address] [phone] PCP - General Family Medicine 07/07/20 Laureano Bennett MD [address] [place] [address] Assigned PCP 08/14/[address] [place] [address] Antisubmarine Weapons Officer Dietitian, Registered 06/14/23 documented as of this encounter
--- OUTSIDE RECORDS SUMMARY | 2023-07-22 16:06 | XMS_ITS | Encounter Summary ---
Author Name Unknown Organization [place] Address [address] [facility] [place] [address] Care Team Providers Care Popcorn Attendant Name Role Phone Laureano Bennett MD Primary Care Provider Laureano Bennett MD Unavailable [phone] Unavailable [phone] Encounter Details Date Type Department Care [...] st Contact Info) Description 07/26/2023 8:00 AM ESCAPEMENT MATCHER Appointment [facility] Medicine [place] [address] [facility] [address] [place] [phone] Rayshawn Nunez MD [address] [place], [place] [address] 07/26/2023 8:30 AM ESCAPEMENT MATCHER Office Visit [facility] Medicine [place] [address] [facility] [address] [place] [phone] Rayshawn Nunez MD [address] [place], [place] [address] 07/29/2023 8:00 AM ESCAPEMENT MATCHER Office Visit [address] [phone] Laureano Bennett MD [address] [place] [address] 07/29/2023 11:45 AM ESCAPEMENT MATCHER Appointment [facility] [place] [address] [facility] [address] [place] [phone] Jennifer Boyer MD [address] [place], [place] [address] 07/29/2023 12:15 PM ESCAPEMENT MATCHER Office Visit [facility] M[facility] Medicine [place] [address] [address] Jennifer Boyer MD [address] [place] [address] 08/05/2023 8:00 AM ESCAPEMENT MATCHER Office Visit [address] [address] Laureano Bennett MD [address] [place] [address] [phone] 08/23/2023 Hospital Encounter [facility] [address] [place] [address] Laureano Bennett MD [address] [place] [address] [phone] documented as of this encounter Visit Diagnoses Not on filedocumented in this encounter Additional Health Concerns Assessment Noted Time PHQ-9 Depression Total Score: 0 05/17/20 23 9:06 AM ESCAPEMENT MATCHER documented as of this encounter Care Teams Popcorn Attendant Relationship Specialty Start Date End Date Laureano Bennett MD [address] [place] [address] PCP - General Family Medicine 07/07/20 Laureano Bennett MD [address] [place] [address] Assigned PCP 08/14/[address] [facility] [place] [address] [place] [address] Armature Winder Helper Repair Dietitian, Registered 06/14/23 documented as of this encounter
--- OUTSIDE RECORDS SUMMARY | 2023-07-22 16:06 | XMS_ITS | Encounter Summary ---
Author Name Unknown Organization [facility] Address [address] [facility] [place] [address] Care Team Providers Care Silica Mixer Operator Name Role Phone Laureano Bennett MD Primary Care Provider [phone] Laureano Bennett MD Unavailable [phone] Unavailable [phone] Reason for Visit * Reason Onset Date Comments Decreased Movement 07/08/2023 Encounter Details Date Type Department Care Team ([facility] Contact Info) Description 07/08/2023 Telephone [facility] [place] [address] [facility] [address] [place] [address] Chyna Garcia RN Decreased Movement [...] 07/08/2023 3:45 PM CST Yu called the M clinic to inquire where to be evaluated for decreased movement. Advisedpt to notify primary OB clinic and to come to [facility] labor and delivery johnny for an NST. Pt verbalized understanding. Chyna Garcia RN RTISING WRITER documented in this encounter Plan of Treatment Upcoming Encounters Date Type Department Care Team (Late st Contact Info) Description 07/26/2023 8:00 AM ADVERTISING WRITER Appointment [facility] Maternal Medicine [facility] [address] [facility] [address] [place] [phone] Rayshawn Nunez MD [address] [place] [address] 07/26/2023 8:30 AM ADVERTISING WRITER Office Visit [facility] Maternal Medicine [facility] [address] [facility] [address] [place] [phone] Rayshawn Nunez MD [address] [place] [address] 07/29/2023 8:00 AM ADVERTISING WRITER Office Visit [address] [place] [address] Laureano Bennett MD [address] [place] [address] [phone] 07/29/2023 11:45 AM ADVERTISING WRITER Appointment [facility] Maternal Medicine [facility] [address] [facility] [address] [place] [address] Jennifer Boyer MD [address] [place] [address] 07/29/2023 12:15 PM ADVERTISING WRITER Office Visit [facility] Maternal Medicine [facility] [address] [facility] [address] [place] [address] Jennifer Boyer MD [address] [place], [place] [address] 08/05/2023 8:00 AM ADVERTISING WRITER Office Visit [address] [address] Laureano Bennett MD [address] [place] [address] [phone] 08/23/2023 Hospital Encounter [facility] [address] [place] [address] Laureano Bennett MD [address] [place] [address] [phone] documented as of this encounter Visit Diagnoses Not on filedocumented in this encounter Additional Health Concerns Assessment Noted Time PHQ-9 Depression Total Score: 0 05/17/20 23 9:06 AM ADVERTISING WRITER documented as of this encounter Care Teams Silica Mixer Operator Relationship Specialty Start Date End Date Laureaon Bennett MD [address] [place] [address] [phone] PCP - General Family Medicine 07/07/20 Laureano Bennett MD [address] [place], [place] [phone] Assigned PCP 08/14/[address] [place] [address] [place] [address] Utilities Equipment Repairer Dietitian, Registered 06/14/23 documented as of this encounter
--- OUTSIDE RECORDS SUMMARY | 2023-07-22 16:06 | XMS_ITS | Encounter Summary ---
Author Name Unknown Organization [facility] Address [address] [place] [address] Care Team Providers Care Bereavement Program Coordinator Name Role Phone Renee Bennett MD Primary Care Provider [phone] Renee Bennett MD Unavailable [phone] Unavailable [phone] Reason for Referral * Diagnostic Imaging Ultrasound (Routine) - Pending Review Specialty Diagnoses / Procedures Referred By Tim nathan Referred To Contact Radiology. Diagnoses Gestational diabetes mellitus (GDM) in third trimester controlled on oral hypoglycemic drug History of IUFD Procedures Maternal BPP Single Jennifer Boyer MD [address] [address] Referral ID Status Reason Start Date Expiration Date V isits Requested Visits Authorized [id number] Pending Review 07/01/2023 06/30/2024 1 1 ITAL SUPERVISOR Reason for Visit * Diagnostic Imaging Ultrasound (Routine) - Pending Review Specialty Diagnoses / Procedures Referred By Tim nathan Referred To Contact Radiology. Diagnoses Gestational diabetes mellitus (GDM) in third trimester controlled on oral hypoglycemic drug History of IUFD Procedures Maternal BPP Single Jenniefr Boyer MD [address] [place] [address] Referral ID Status Reason Start Date Expiration Date V isits Requested Visits Authorized [id number] Pending Review 07/01/2023 06/30/2024 1 1 Encounter Details Date Type Department Care Team (Latest Contact Info) Description 07/04/2023 3:15 PM HOSPITAL SUPERVISOR - 07/04/2023 11:59 PM HOSPITAL SUPERVISOR Hospital Encounter [facility] [place] [address] [facility] [address] [place] [phone] Rosemary Cheema MD [address] [facility] [address] [place] [address] Gestational diabetes mellitus (GDM) in [...] st Contact Info) Description 07/26/2023 8:00 AM HOSPITAL SUPERVISOR Appointment [facility] Medicine [place] [address] [facility] [address] [place] [phone] Rayshawn Nunez MD [address] [place] [address] 07/26/2023 8:30 AM HOSPITAL SUPERVISOR Office Visit [facility] [place] [address] [address] [facility] [address] [place] [phone] Rayshawn Nunez MD [address] [place] [address] 07/29/2023 8:00 AM HOSPITAL SUPERVISOR Office Visit [address] [place] [phone] Renee Bennett MD [address] [place] [address] [phone] 07/29/2023 11:45 AM HOSPITAL SUPERVISOR Appointment [facility] Medicine [place] [address] [address] [facility] [address] [place] [phone] Jennifer Boyer MD [address] [place] [address] 07/29/2023 12:15 PM HOSPITAL SUPERVISOR Office Visit [facility] [place] [address] [facility] [address] [place] [address] Jennifer Boyer MD [address] [place] [address] 08/05/2023 8:00 AM HOSPITAL SUPERVISOR Office Visit [address] [phone] Renee Bennett MD [address] [place] [address] [phone] 08/23/2023 Hospital Encounter [facility] [address] [place] [address] Renee Bennett MD [address] [place] [address] [phone] documented as of this encounter Procedures Procedure Name Priority Date/Time Associated Diagnosis Comments MFM BPP SINGLE Routine 07/04/2023 3:38 PM HOSPITAL SUPERVISOR Gestational diabetes mellitus (GDM) in third trimester controlled on oral hypoglycemic drug Prior with demise and current in third trimester documented in this encounter Results * Maternal BPP Single (07/04/2023 3:38 PM HOSPITAL SUPERVISOR) Anatomical Region Laterality Modality Ultrasound 07/04/2023 3:18 PM HOSPITAL SUPERVISOR Impressions 07/04/2023 5:32 PM HOSPITAL SUPERVISOR IMPRESSION ----- 1) [place] intrauterine at 32w 6d gestational age. 2) The BPP is reassuring. 3) The amniotic fluid volume appeared normal. Narrative 07/04/2023 5:32 PM HOSPITAL SUPERVISOR ?BPP ----- Pat. Name: YU RENEE ? Study Date: ??07/04/2023 3:18pm Pat. NO: ??[id number] ?Referring ??MD: RENEE BENNETT Site: ??[facility] ? Switching Operator: Renetta Garcia RDMS : ??1995 ?Age: [...] RENEE Study Date: 07/04/2023 3:18pm Pat. NO: [id number] Referring MD: RENEE BENNETT Site: [facility] Switching Operator: Renetta Garcia RDMS : 1995 Age: [...] volume appeared normal. Jennifer Boyer MD IMG [facility] US ORDERAB LES documented in this encounter Visit Diagnoses Diagnosis Gestational diabetes mellitus (GDM) in third trimester controlled on oral hypoglycemic drug Prior with demise and current in third trimester documented in this encounter Additional Health Concerns Assessment Noted Time PHQ-9 Depression Total Score: 0 05/17/20 23 9:06 AM HOSPITAL SUPERVISOR documented as of this encounter Care Teams Bereavement Program Coordinator Relationship Specialty Start Date End Date Renee Bennett MD [address] [place] [address] [phone] PCP - General Family Medicine 07/07/20 Renee Bennett MD [address] [place] [address] Assigned PCP 08/14/[address] [facility] [place] [address] [place] [address] Stopperer Assembler Dietitian, Registered 06/14/23 documented as of this encounter
--- OUTSIDE RECORDS SUMMARY | 2023-07-22 16:06 | XMS_ITS | Encounter Summary ---
Author Name Unknown Organization [facility] Address [address] [place] [address] Care Team Providers Care Slicing Machine Operator Name Role Phone Laureano Bennett MD Primary Care Provider [phone] Laureano Bennett MD Unavailable [phone] Unavailable [phone] Reason for Visit * Reason Comments Ultrasound BPP-GDM on meds, hx IUFD Encounter Details Date Type Department Care Team ([facility] st Contact Info) Description 07/04/2023 4:00 PM URBAN PLANNING TEACHER Office Visit [facility] [place] [address] [facility] [address] [place] [address] Rosemary Cheema MD [address] [facility] [address] [place] [address] Gestational diabetes mellitus (GDM) in [...] Violette Zhou RN - 07/04/2023 4:00 PM URBAN PLANNING TEACHER Images from the original note were not [...] Where can you learn more? Go to https://[email or web address].net/patiented Enter U048 in the search box to learn more about Counting Your Baby's Kicks: Care Instructions. Current as of: December 28, 2022 Content Version: 13.8 ?? [employer]. Care instructions adapted under license by your healthcare professional. If you have questions about a medical condition or this instruction, always ask your healthcare professional. [employer] disclaims any warranty or liability for your [...] health care provider. Copyright ?? 1999, 2004 [facility]. Clinically reviewed by Maternal- Medicine Department. All rights reserved. [employer] [id number] - REV 04/09. N PLANNING TEACHER documented in this encounter Progress Notes * Rosemary Cheema MD - 07/04/2023 4:00 PM CST Please see Imaging tab under Chart Review for details of today's visit. Rosemary Cheema N PLANNING TEACHER documented in this encounter Nursing Notes * Violette Zhou RN - 07/04/2023 4:00 PM CST Patient reports good movement, reports occasional contractions, denies leaking of fluid, or bleeding. Reports blood sugar values fasting 117 today and 2 hr post prandial <120. SBAR given to [facility], see their note in Epic. N PLANNING TEACHER documented in this encounter Plan of Treatment Upcoming Encounters Date Type Department Care Team (Late st Contact Info) Description 07/26/2023 8:00 AM URBAN PLANNING TEACHER Appointment [facility] [place] [address] [facility] [address] [place] [address] Rayshawn Nunez MD [address] [facility] [address] [place] [address] 07/26/2023 8:30 AM URBAN PLANNING TEACHER Office Visit [facility] [address] [facility] [address] [place] [address] Rayshawn Nunez MD [address] [place] [address] 07/29/2023 8:00 AM URBAN PLANNING TEACHER Office Visit [address] [phone] Laureano Bennett MD [address] [place] [address] [phone] 07/29/2023 11:45 AM URBAN PLANNING TEACHER Appointment [facility] [place] [address] [facility] [address] [place] [phone] Jennifer Boyer MD [address] [place] [address] 07/29/2023 12:15 PM URBAN PLANNING TEACHER Office Visit [facility] [place] [address] [address] Jennifer Boyer MD [address] [place] [address] 08/05/2023 8:00 AM URBAN PLANNING TEACHER Office Visit [address] [phone] Laureano Bennett MD [address] [place] [address] 08/23/2023 Hospital Encounter [facility] [address] [place] [address] Laureano Bennett MD [facility] [place] [address] documented as of this encounter Visit Diagnoses Diagnosis Gestational diabetes mellitus (GDM) in third trimester controlled on oral hypoglycemic drug- Primary documented in this encounter Additional Health Concerns Assessment Noted Time PHQ-9 Depression Total Score: 0 05/17/20 23 9:06 AM URBAN PLANNING TEACHER documented as of this encounter Care Teams Slicing Machine Operator Relationship Specialty Start Date End Date Laureano Bennett MD [address] [place] [address] PCP - General Family Medicine 07/07/20 Laureano Bennett MD [address] [place] [address] Assigned PCP 08/14/[address] [place] [address] [address] [address] Feather Cutting Machine Feeder Dietitian, Registered 06/14/23 documented as of this encounter
--- OUTSIDE RECORDS SUMMARY | 2023-07-22 16:06 | XMS_ITS | Encounter Summary ---
Author Name Unknown Organization [place] Address Formerly [facility] [place] [address] Care Team Providers Care Inserting Press Operator Name Role Phone Laureano Bennett MD Primary Care Provider [phone] Laureano Bennett MD Unavailable [phone] Unavailable [phone] Reason for Visit * Reason Comments Decreased Movement Encounter Details Date Type Department Care Team (Late st Contact Info) Description 07/08/2023 4:10 PM BODY WELDER - 07/08/2023 5:05 PM BODY WELDER Hospital Encounter [facility] [address] [place] [phone] Laureano Bennett MD [address] [place] [address] Discharge Disposition: Home or Self [...] Comments Blood Pressure 131/59 07/08/2023 4:32 PM BODY WELDER Pulse 64 07/08/2023 4:32 PM BODY WELDER Temperature 36.7 ??C (98.1 ??F) 07/08/2023 4:32 PM CS T Respiratory Rate 16 07/08/2023 4:32 PM BODY WELDER Oxygen Saturation - - Inhaled Oxygen Concentration - - Weight - - Height - - Body Mass Index - - documented in this encounter Discharge Instructions * Discharge Instructions* Beverley Kennedy RN - 07/08/2023 5:00 PM BODY WELDER Learning About When to Call Your Doctor [...] Where can you learn more? Go to [email or web address].net/patiented Enter N531 in the search box to learn more about Learning About When to Call Your Doctor During (After 20 Weeks). Current as of: December 28, 2022 Content Version: 13.8 ?? [id number] [employer]. Care instructions adapted under license by your healthcare professional. If you have questions about a medical condition or this instruction, always ask your healthcare professional. [employer] disclaims any warranty or liability for your use of this information. WELDER * Attachments The following attachments cannot be sent through Care Everywhere. * : [employer] (Singaporean) documented in this encounter Medications at Time [...] with plan. Discharged to home at 1705. WELDER * Provider Notification - Beverley Kennedy RN - 07/08/2023 4:55 PM BODY WELDER 07/08/23 1655 Provider Notification Provider Name/Title Dr. [...] plan to follow up as previously instructed. WELDER * Care Plan - Beverley Kennedy RN [...] Bennett with update and for further orders. WELDER documented in this encounter Plan of Treatment Upcoming Encounters Date Type Department Care Team (Late st Contact Info) Description 07/26/2023 8:00 AM BODY WELDER Appointment [facility] Maternal Medicine [place] [address] [facility] [address] [place] [phone] Rayshawn Nunez MD [address] [place], [place] [address] 07/26/2023 8:30 AM BODY WELDER Office Visit [facility] Medicine [place] [address] [facility] [address] [place] [phone] Rayshawn Nunez MD [address] [place], [place] [address] 07/29/2023 8:00 AM BODY WELDER Office Visit [address] [phone] Laureano Bennett MD [address] [place] [address] 07/29/2023 11:45 AM BODY WELDER Appointment [facility] Maternal Medicine [place] [address] [facility] [address] [place] [phone] Jennifer Boyer MD [address] [place], [place] [address] 07/29/2023 12:15 PM BODY WELDER Office Visit [facility] Maternal Medicine [place] [address] [facility] [address] [place] [phone] Jennifer Boyer MD [address] [place], [place] [phone] 08/05/2023 8:00 AM BODY WELDER Office Visit [address] [phone] Laureano Bennett MD [address] [place] [phone] 08/23/[address] [facility] [address] [place] [phone] Laureano Bennett MD [address] [place] [address] [phone] documented as of this encounter Procedures Procedure Name Priority Date/Time Associated Diagnosis Comments NON-STRESS TEST - HIM SCAN 07/08/2023 12:00 AM BODY WELDER documented in this encounter Results * NON-STRESS TEST - HIM SCAN (07/08/2023 12:00 AM BODY WELDER) 07/08/2023 Provider Outside PROCEDURES documented in this encounter Visit Diagnoses Diagnosis Encounter for triage in patient- Primary documented in this encounter Admitting Diagnoses Diagnosis Encounter for triage in patient documented in this encounter Additional Health Concerns Assessment Noted Time PHQ-9 Depression Total Score: 0 05/17/20 23 9:06 AM BODY WELDER documented as of this encounter Care Teams Inserting Press Operator Relationship Specialty Start Date End Date Laureano Bennett MD [address] [place] [address] PCP - General Family Medicine 07/07/20 Laureano Bennett MD [address] [place] [address] Assigned PCP 08/14/[address] [facility] [place] [address] [place] [address] Biodiesel Plant Operations Engineer Dietitian, Registered 06/14/23 documented as of this encounter
--- OUTSIDE RECORDS SUMMARY | 2023-07-22 16:06 | XMS_ITS | Encounter Summary ---
Author Name Unknown Organization [place] Address [address] [facility] [place] [address] Care Team Providers Care Cargo Vessel Stewardess Name Role Phone Lauerano Bennett MD Primary Care Provider [phone] Laureano Bennett MD Unavailable [phone] Unavailable [phone] Encounter Details Date Type Department Care [...] st Contact Info) Description 07/26/2023 8:00 AM HOSIERY PAIRER Appointment [facility] Maternal Medicine [place] [address] [facility] [address] [place] [phone] Rayshawn Nunez MD [address] [place], [place] [address] 07/26/2023 8:30 AM HOSIERY PAIRER Office Visit [facility] Medicine [place] [address] [facility] [address] [place] [phone] Rayshawn Nunez MD [address] [place], [place] [address] 07/29/2023 8:00 AM HOSIERY PAIRER Office Visit [address] [phone] Laureano Bennett MD [address] [place] [address] 07/29/2023 11:45 AM HOSIERY PAIRER Appointment [facility] Maternal Medicine [place] [address] [facility] [address] [place] [phone] Jennifer Boyer MD [address] [place], [place] [address] 07/29/2023 12:15 PM HOSIERY PAIRER Office Visit [facility] Maternal Medicine [place] [address] [phone] Jennifer Boyer MD [address] [place] [address] 08/05/2023 8:00 AM HOSIERY PAIRER Office Visit [address] [phone] Laureano Bennett MD [address] [place] [address] [phone] 08/23/2023 Hospital Encounter [facility] [address] [place] [address] Laureano Bennett MD [address] [place] [phone] documented as of this encounter Visit Diagnoses Not on filedocumented in this encounter Additional Health Concerns Assessment Noted Time PHQ-9 Depression Total Score: 0 05/17/20 23 9:06 AM HOSIERY PAIRER documented as of this encounter Care Teams Cargo Vessel Stewardess Relationship Specialty Start Date End Date Laureano Bennett MD [address] [place] [address] PCP - General Family Medicine 07/07/20 Laureano Bennett MD [address] [place] [address] Assigned PCP 08/14/[address] [facility] [address] [place] [address] Investigation Manager Dietitian, Registered 06/14/23 documented as of this encounter
--- OUTSIDE RECORDS SUMMARY | 2023-07-22 16:07 | XMS_ITS | Encounter Summary ---
Author Name Unknown Organization [place] Address [address] [place] [address] Care Team Providers Care Ticketer Name Role Phone Renee Bennett MD Primary Care Provider Renee Bennett MD Unavailable [phone] Unavailable [phone] Reason for Referral * Diagnostic Imaging Ultrasound (Routine) - Pending Review Specialty Diagnoses / Procedures Referred By Tim nathan Referred To Contact Radiology. Diagnoses Gestational diabetes mellitus (GDM) in third trimester controlled on oral hypoglycemic drug History of IUFD Procedures Maternal US Comprehensive Single F/U Jennifer Boyer MD [address] [place] [address] Referral ID Status Reason Start Date Expiration Date V isits Requested Visits Authorized [id number] Pending Review 07/01/2023 06/30/2024 1 1 UCT ASSURANCE ENGINEER * Diagnostic Imaging Ultrasound (Routine) - Pending Review Specialty Diagnoses / Procedures Referred By Conteloina nathan Referred To Contact Radiology. Diagnoses Gestational diabetes mellitus (GDM) in third trimester controlled on oral hypoglycemic drug History of IUFD Procedures Maternal BPP Single Jennifer Boyer MD [address] [place] [address] Referral ID Status Reason Start Date Expiration Date V isits Requested Visits Authorized [id number] Pending Review 07/01/2023 06/30/2024 1 1 UCT ASSURANCE ENGINEER * Diagnostic Imaging Ultrasound (Routine) - Pending Review Specialty Diagnoses / Procedures Referred By Contac t Referred To Contact Radiology. Diagnoses Gestational diabetes mellitus (GDM) in third trimester controlled on oral hypoglycemic drug History of IUFD Procedures Maternal BPP Jennifer Samuel MD [address] [place] [address] Referral ID Status Reason Start Date Expiration Date V isits Requested Visits Authorized [id number] Pending Review 07/01/2023 06/30/2024 1 1 UCT ASSURANCE ENGINEER * Diagnostic Imaging Ultrasound (Routine) - Pending Review Specialty Diagnoses / Procedures Referred By Contac t Referred To Contact Radiology. Diagnoses Gestational diabetes mellitus (GDM) in third trimester controlled on oral hypoglycemic drug History of IUFD Procedures Maternal BPP Jennifer Samuel MD [address] [place] [address] Referral ID Status Reason Start Date Expiration Date V isits Requested Visits Authorized [id number] Pending Review 07/01/2023 06/30/2024 1 1 UCT ASSURANCE ENGINEER * Diagnostic Imaging Ultrasound (Routine) - Pending Review Specialty Diagnoses / Procedures Referred By Contac t Referred To Contact Radiology. Diagnoses Gestational diabetes mellitus (GDM) in third trimester controlled on oral hypoglycemic drug History of IUFD Procedures Maternal BPP Jennifer Samuel MD [address] [place] [address] Referral ID Status Reason Start Date Expiration Date V isits Requested Visits Authorized [id number] Pending Review 07/01/2023 06/30/2024 1 1 UCT ASSURANCE ENGINEER * Diagnostic Imaging Ultrasound (Routine) - Pending Review Specialty Diagnoses / Procedures Referred By Contac t Referred To Contact Radiology. Diagnoses Gestational diabetes mellitus (GDM) in third trimester controlled on oral hypoglycemic drug History of IUFD Procedures Maternal BPP Jennifer Samuel MD [address] [place] [address] Referral ID Status Reason Start Date Expiration Date V isits Requested Visits Authorized [id number] Pending Review 07/01/2023 06/30/2024 1 1 UCT ASSURANCE ENGINEER * Diagnostic Imaging Ultrasound (Routine) - Pending Review Specialty Diagnoses / Procedures Referred By Contac jac Referred To Contact Radiology. Diagnoses Gestational diabetes mellitus (GDM) in third trimester controlled on oral hypoglycemic drug History of IUFD Procedures Maternal BPP Jennifer Samuel MD [address] [place] [address] Referral ID Status Reason Start Date Expiration Date V isits Requested Visits Authorized [id number] Pending Review 07/01/2023 06/30/2024 1 1 UCT ASSURANCE ENGINEER * Diagnostic Imaging Ultrasound (Routine) - Pending Review Specialty Diagnoses / Procedures Referred By Conteloina nathan Referred To Contact Radiology. Diagnoses Gestational diabetes mellitus (GDM) in third trimester controlled on oral hypoglycemic drug History of IUFD Procedures Maternal BPP Jennifer Samuel MD [address] [place] [address] Referral ID Status Reason Start Date Expiration Date V isits Requested Visits Authorized [id number] Pending Review 07/01/2023 06/30/2024 1 1 UCT ASSURANCE ENGINEER Reason for Visit * Reason Comments Ultrasound L2-GDMA2, Hx of term stillbirth Encounter Details Date Type Department Care Team (Late st Contact Info) Description 07/01/2023 8:30 AM PRODUCT ASSURANCE ENGINEER Office Visit [facility] [place] [address] [place] [address] Jennifer Boyer MD [address] [place] [address] Gestational diabetes mellitus (GDM) in [...] Jennifer Boyer MD Specialist in Maternal- Medicine UCT ASSURANCE ENGINEER documented in this encounter Nursing Notes * [...] MARYAM MAYERS, see their note in Epic. UCT ASSURANCE ENGINEER documented in this encounter Plan of Treatment Upcoming Encounters Date Type Department Care Team (Late st Contact Info) Description 07/26/2023 8:00 AM PRODUCT ASSURANCE ENGINEER Appointment [facility] Medicine [place] [address] [facility] [address] [place] [phone] Rayshawn Nunez MD [address] [place], [place] [address] 07/26/2023 8:30 AM PRODUCT ASSURANCE ENGINEER Office Visit [facility] Medicine [place] [address] [facility] [address] [place] [phone] Rayshawn Nunez MD [address] [place] [address] 07/29/2023 8:00 AM PRODUCT ASSURANCE ENGINEER Office Visit [address] [place] [phone] Renee Bennett MD [address] [place] [address] 07/29/2023 11:45 AM PRODUCT ASSURANCE ENGINEER Appointment [facility] [place] [address] [facility] [address] [place] [phone] Jennifer Boyer MD [address] [place] [address] 07/29/2023 12:15 PM PRODUCT ASSURANCE ENGINEER Office Visit [facility] [place] [address] [facility] [address] [place] [address] Jennifer Boyer MD [address] [place] [address] 08/05/2023 8:00 AM PRODUCT ASSURANCE ENGINEER Office Visit [address] [phone] Renee Bennett MD [address] [place] [address] [phone] 08/23/2023 Hospital Encounter [facility] [facility] [address] [place] [phone] Renee Bennett MD [address] [place] [address] [phone] Scheduled Orders Name Type Priority Associated Diagnoses [...] * Maternal BPP Single (07/22/2023 9:10 AM PRODUCT ASSURANCE ENGINEER) Anatomical Region Laterality Modality Ultrasound 07/22/2023 8:54 AM PRODUCT ASSURANCE ENGINEER Impressions 07/22/2023 9:22 AM PRODUCT ASSURANCE ENGINEER IMPRESSION ----- 1. [place] intrauterine at 35w 3d gestational age here for testing. 2. The fetus is in cephalic presentation. The amniotic fluid volume is normal. 3. The BPP is 01/25. Narrative 07/22/2023 9:22 AM PRODUCT ASSURANCE ENGINEER ?BPP ----- Pat. Name: YU LOGAN ? Study Date: ??07/22/2023 8:54am Pat. NO: ??[id number] ?Referring ??MD: RENEE BENNETT Site: ??[facility] ? Skylights Assembler: Makeda Hassan RDMS : ??1995 ?Age: ?? [...] LOGAN Study Date: 07/22/2023 8:54am Pat. NO: [id number] Referring MD: RENEE BENNETT Site: [facility] Skylights Assembler: Makeda Hassan RDMS : 1995 Age: 28 [...] The BPP is 8/8. Jennifer Boyer MD [facility] US ORDERAB LES * Maternal BPP Single (07/18/2023 3:55 PM PRODUCT ASSURANCE ENGINEER) Anatomical Region Laterality Modality Ultrasound 07/18/2023 3:34 PM PRODUCT ASSURANCE ENGINEER Impressions 07/18/2023 3:57 PM PRODUCT ASSURANCE ENGINEER IMPRESSION ----- 1) Normal amniotic fluid volume. 2) BPP is reassuring. Narrative 07/18/2023 3:57 PM PRODUCT ASSURANCE ENGINEER ?BPP ----- Pat. Name: YU LOGAN ? Study Date: ??07/18/2023 3:34pm Pat. NO: ??[id number] ?Referring ??MD: RENEE BENNETT Site: ??[facility] ? Skylights Assembler: Kirstin Gold RDMS : ??1995 ?Age: ?? [...] LOGAN Study Date: 07/18/2023 3:34pm Pat. NO: [id number] Referring MD: RENEE BENNETT Site: [facility] Skylights Assembler: Kirstin Gold RDMS : 1995 Age: 28 [...] 2) BPP is reassuring. Jennifer Boyer MD [facility] US ORDERAB LES * Maternal BPP Single (07/15/2023 12:07 PM PRODUCT ASSURANCE ENGINEER) Anatomical Region Laterality Modality Ultrasound 07/15/2023 11:4 0 AM PRODUCT ASSURANCE ENGINEER Impressions 07/15/2023 2:59 PM PRODUCT ASSURANCE ENGINEER IMPRESSION ----- 1) [place] intrauterine at 34w 3d gestational age. 2) The BPP is reassuring. 3) The amniotic fluid volume appeared normal. Narrative 07/15/2023 2:59 PM PRODUCT ASSURANCE ENGINEER ?BPP ----- Pat. Name: YU LOGAN ? Study Date: ??07/15/2023 11:40am Pat. NO: ??[id number] ?Referring ??MD: RENEE BENNETT Site: ??[facility] ? Skylights Assembler: Makeda Hassan RDMS : ??1995 ?Age: ?? [...] LOGAN Study Date: 07/15/2023 11:40am Pat. NO: [id number] Referring MD: RENEE BENNETT Site: [facility] Skylights Assembler: Makeda HassanKASHMIR : 1995 Age: 28 ----- INDICATION ----- [...] fluid volume appeared normal. Jennifer Boyer MD [facility] ORDERAB L[facility] * Maternal BPP Single (2023 8:41 AM PRODUCT ASSURANCE ENGINEER) Anatomical Region Laterality Modality Ultrasound 2023 8:14 AM PRODUCT ASSURANCE ENGINEER Impressions 2023 8:44 AM PRODUCT ASSURANCE ENGINEER IMPRESSION ----- 1. [place] intrauterine at 34w 0d gestational age here for testing. 2. The fetus is in BREECH presentation. The amniotic fluid volume is normal. 3. The BPP is 01/25. Narrative 2023 8:44 AM PRODUCT ASSURANCE ENGINEER ?BPP ----- Pat. Name: YU LOGAN ? Study Date: ??2023 8:14am Pat. NO: ??[id number] ?Referring ??MD: RENEE BENNETT Site: ??[facility] ? Skylights Assembler: Kirstin Gold RDMS : ??1995 ?Age: ?? [...] LOGAN Study Date: 2023 8:14am Pat. NO: [id number] Referring MD: RENEE BENNETT Site: [facility] Skylights Assembler: Kirstin Gold RDMS : 1995 Age: 28 [...] The BPP is 01/25. Jennifer Boyer MD [facility] US ORDERAB LES * Maternal BPP Single (07/06/2023 3:49 PM PRODUCT ASSURANCE ENGINEER) Anatomical Region Laterality Modality Ultrasound 07/06/2023 3:32 PM PRODUCT ASSURANCE ENGINEER Impressions 07/06/2023 3:53 PM PRODUCT ASSURANCE ENGINEER IMPRESSION ----- 1) Normal amniotic fluid volume. 2) BPP is reassuring. Narrative 07/06/2023 3:53 PM PRODUCT ASSURANCE ENGINEER ?BPP ----- Pat. Name: YU LOGAN ? Study Date: ??07/06/2023 3:32pm Pat. NO: ??[id number] ?Referring ??: RENEE BENNETT Site: ??[facility] ? Skylights Assembler: Renetta Garcia [facility] : ??1995 ?Age: ?? 27 ----- [...] MD - 07/06/2023 BPP ----- Pat. Name: LATISHACYNTHIAYU Study Date: 07/06/2023 3:32pm Pat. NO: [id number] Referring MD: RENEE BENNETT Site: [facility] Skylights Assembler: Renetta GarciaKASHMIR : 1995 Age: 27 ----- INDICATION ----- [...] 2) BPP is reassuring. Jennifer Boyer MD [facility] US ORDERAB LES * Maternal BPP Single (07/04/2023 3:38 PM PRODUCT ASSURANCE ENGINEER) Anatomical Region Laterality Modality Ultrasound 07/04/2023 3:18 PM PRODUCT ASSURANCE ENGINEER Impressions 07/04/2023 5:32 PM PRODUCT ASSURANCE ENGINEER IMPRESSION ----- 1) [place] intrauterine at 32w 6d gestational age. 2) The BPP is reassuring. 3) The amniotic fluid volume appeared normal. Narrative 07/04/2023 5:32 PM PRODUCT ASSURANCE ENGINEER ?BPP ----- Pat. Name: YU LOGAN ? Study Date: ??07/04/2023 3:18pm Pat. NO: ??[id number] ?Referring ??MD: RENEE BENNETT Site: ??[facility] ? Skylights Assembler: Renetta Garcia RDMS : ??1995 ?Age: ?? [...] LOGAN Study Date: 07/04/2023 3:18pm Pat. NO: [id number] Referring MD: RENEE BENNETT Site: [facility] Skylights Assembler: Renetta Garcia RDMS : 1995 Age: 27 [...] fluid volume appeared normal. Jennifer Boyer MD [facility] ORDERAB LES documented in this encounter Visit [...] Total Score: 0 05/17/20 23 9:06 AM PRODUCT ASSURANCE ENGINEER documented as of this encounter Care Teams Ticketer Relationship Specialty Start Date End Date Renee Bennett MD [address] [place] [address] PCP - General Family Medicine 07/07/20 Renee Bennett MD [address] [place] [address] Assigned PCP 08/14/[address] [facility] [address] [place] [address] Test Driver Dietitian, Registered 06/14/23 documented as of this encounter
--- OUTSIDE RECORDS SUMMARY | 2023-07-22 16:07 | XMS_ITS | Encounter Summary ---
Author Name Unknown Organization [place] Address [address] [facility] [place] [address] Care Team Providers Care Segmental Wall Installer Name Role Phone Laureano Bennett MD Primary Care Provider Laureano Bennett MD Unavailable [phone] Unavailable [phone] Reason for Visit * Reason Comments Ultrasound L2-GDM Encounter Details Date Type Department Care Team ([facility] st Contact Info) Description 06/22/2023 PRE VISIT [facility] [place] [address] [facility] [address] [place] [address] Violette Zhou RN Ultrasound (L2-GDM) [...] st Contact Info) Description 07/26/2023 8:00 AM SPARES SCHEDULER Appointment [facility] [place] [address] [facility] [address] [place] [phone] Rayshawn Nunez MD [address] [place], [place] [address] 07/26/2023 8:30 AM SPARES SCHEDULER Office Visit [facility] [place] [address] [facility] [address] [place] [phone] Rayshawn Nunez MD [address] [place], [place] [address] 07/29/2023 8:00 AM SPARES SCHEDULER Office Visit [address] [place] [phone] Laureano Bennett MD [address] [place] [phone] 07/29/2023 11:45 AM SPARES SCHEDULER Appointment [facility] [place] [address] [facility] [address] [place] [phone] Jennifer Boyer MD [address] [place] [address] 07/29/2023 12:15 PM SPARES SCHEDULER Office Visit [facility] [place] [address] [facility] [address] [place] [address] Jennifer Boyer MD [address] [facility] [address] [place] [address] 08/05/2023 8:00 AM SPARES SCHEDULER Office Visit [address] [phone] Laureano Bennett MD [address] [place] [address]24[address] 08/23/[address] [facility] [address] [place] [phone] Laureano Bennett MD [address] [place] [address] [phone] documented as of this encounter Visit Diagnoses Not on filedocumented in this encounter Additional Health Concerns Assessment Noted Time PHQ-9 Depression Total Score: 0 05/17/20 23 9:06 AM SPARES SCHEDULER documented as of this encounter Care Teams Segmental Wall Installer Relationship Specialty Start Date End Date Laureano Bennett MD [address] [place] [address] PCP - General Family Medicine 07/07/20 Laureano Bennett MD [address] [place] [address] Assigned PCP 08/14/[address] [facility] [place] [address] [address] [place] [address] Bun Panner Dietitian, Registered 06/14/23 documented as of this encounter
--- OUTSIDE RECORDS SUMMARY | 2023-07-22 16:07 | XMS_ITS | Encounter Summary ---
Author Name Unknown Organization [place] Address [address] [facility] [place] [address] Care Team Providers Care Box Coverer Hand Name Role Phone Laureano Bennett MD Primary Care Provider [phone] Laureano Bennett MD Unavailable [phone] Unavailable [phone] Encounter Details Date Type Department Care [...] st Contact Info) Description 07/26/2023 8:00 AM INFLATABLE BUILDINGS LAMINATOR Appointment [facility] M[facility] Medicine [place] [address] [address] [facility] [address] [place] [phone] Rayshawn Nunez MD [address] [place], [place] [address] 07/26/2023 8:30 AM INFLATABLE BUILDINGS LAMINATOR Office Visit [facility] Medicine [place] [address] [address] [facility] [address] [place] [phone] Rayshawn Nunez MD [address] [place], [place] [address] 07/29/2023 8:00 AM INFLATABLE BUILDINGS LAMINATOR Office Visit [address] [phone] Laureano Bennett MD [address] [place] [address] 07/29/2023 11:45 AM INFLATABLE BUILDINGS LAMINATOR Appointment [facility] [place] [address] [address] [facility] [address] [place] [phone] Jennifer Boyer MD [address] [place], [place] [address] 07/29/2023 12:15 PM INFLATABLE BUILDINGS LAMINATOR Office Visit [facility] [place] [address] [address] Jennifer Boyer MD [address] [place] [address] 08/05/2023 8:00 AM INFLATABLE BUILDINGS LAMINATOR Office Visit [address] [phone] Laureano Bennett MD [address] [place] [address] 722682 08/23/[address] [facility] [address] [place] [address] Laureano Bennett MD [address] [place] [address] [phone] documented as of this encounter Visit Diagnoses Not on filedocumented in this encounter Additional Health Concerns Assessment Noted Time PHQ-9 Depression Total Score: 0 05/17/20 23 9:06 AM INFLATABLE BUILDINGS LAMINATOR documented as of this encounter Care Teams Box Coverer Hand Relationship Specialty Start Date End Date Laureano Bennett MD [address] [place] [address] PCP - General Family Medicine 07/07/20 Laureano Bennett MD [address] [place] [address] Assigned PCP 08/14/[address] [facility] [place] [address] [place] [address] Construction Cost Estimator Dietitian, Registered 06/14/23 documented as of this encounter
--- OUTSIDE RECORDS SUMMARY | 2023-07-22 16:07 | XMS_ITS | Encounter Summary ---
Author Name Unknown Organization [place] Address [address] [place] [address] Care Team Providers Care Jewelry Drilling Machine Operator Name Role Phone Laureano Bennett MD Primary Care Provider [phone] Laureano Bennett MD Unavailable [phone] Unavailable [phone] Reason for Referral * Consultation (Routine: Next available opening) - Referral NOT Required Specialty Diagnoses / Procedures Referred By Contac t Referred To Contact Diagnoses Gestational diabetes mellitus (GDM), antepartum, gestational diabetes method of control unspecified Laureano Bennett MD [address] [place] [address] Maternal Med [address] [facility] [address] [place] [address] Referral ID Status Reason Start Date Expiration Date V isits Requested Visits Authorized [id number] Referral NOT Required 06/21/2023 06/20/2024 1 1 Question Answer Preferred Location: [facility] [place] 08/23/2023 Ultrasound MFM Recommendation US PROC [...] plan with any benefit or coverage questions. OM STOCK MAKER Encounter Details Date Type Department Care Team (Late st Contact Info) Description 06/21/2023 10:20 AM CUSTOM STOCK MAKER Office Visit [address] [phone] Laureano Bennett MD [address] [place] [address] 775512 Gestational diabetes mellitus (GDM), antepartum, gestational diabetes [...] Comments Blood Pressure 122/78 06/21/2023 10:14 AM CUSTOM STOCK MAKER Pulse 76 06/21/2023 10:14 AM CUSTOM STOCK MAKER Temperature 36.6 ??C (97.9 ??F) 06/21/2023 10:[address] Respiratory Rate 14 06/21/2023 10:14 AM CUSTOM STOCK MAKER Oxygen Saturation 98% 06/21/2023 10:14 AM CUSTOM STOCK MAKER Inhaled Oxygen Concentration - - Weight 81.2 kg (179 lb) 06/21/2023 10:14 AM CUSTOM STOCK MAKER Height 174 cm (5' 8.5) 06/21/2023 10:14 AM CUSTOM STOCK MAKER Body Mass Index 26.82 06/21/2023 10:14 AM CUSTOM STOCK MAKER documented in this encounter Progress Notes * [...] now and weight scan ~ 36 weeks. OM STOCK MAKER documented in this encounter Plan of Treatment Upcoming Encounters Date Type Department Care Team (Late st Contact Info) Description 07/26/2023 8:00 AM CUSTOM STOCK MAKER Appointment [facility] M[facility] [place] [address] [facility] [address] [place] [address] Rayshawn Nunez MD [address] [place] [address] 07/26/2023 8:30 AM CUSTOM STOCK MAKER Office Visit [facility] Maternal Medicine [place] [address] [place] [address] Rayshawn Nunez MD [address] [place] [address] 07/29/2023 8:00 AM CUSTOM STOCK MAKER Office Visit [address] [phone] Laureano Bennett MD [address] [place] [address] 478552 07/29/2023 11:45 AM CUSTOM STOCK MAKER Appointment [facility] Maternal Medicine [place] [address] [place] [address] Jennifer Boyer MD [address] [place] [address] 07/29/2023 12:15 PM CUSTOM STOCK MAKER Office Visit [facility] Maternal Medicine [place] [address] [place] [address] Jennifer Boyer MD [address] [place] [address] 08/05/2023 8:00 AM CUSTOM STOCK MAKER Office Visit [address] [phone] Laureano Bennett MD [address] [place] [address] 077933 08/23/2023 Hospital Encounter [facility] Birth[facility] [address] [place] [phone] Laureano Bennett MD [address] [place] [address] Scheduled Referrals Name Type Priority Associated Diagnoses [...] Total Score: 0 05/17/20 23 9:06 AM CUSTOM STOCK MAKER documented as of this encounter Care Teams Jewelry Drilling Machine Operator Relationship Specialty Start Date End Date Laureano Bennett MD [address] [place] [address] PCP - General Family Medicine 07/07/20 Laureano Bennett MD [address] [place] [address] Assigned PCP 08/14/[address] [place] [address] [place] [address] Filenet P8 Developer Dietitian, Registered 06/14/23 documented as of this encounter
--- OUTSIDE RECORDS SUMMARY | 2023-07-22 16:07 | XMS_ITS | Encounter Summary ---
Author Name Unknown Organization [place] Address [address] [place] [address] Care Team Providers Care Lute Packer Or Applier Name Role Phone Renee Bennett MD Primary Care Provider [phone] Renee Bennett MD Unavailable [phone] Unavailable [phone] Reason for Referral * Diagnostic Imaging Ultrasound (Routine) - Pending Review Specialty Diagnoses / Procedures Referred By Tim t Referred To Contact Radiology. Diagnoses related condition, antepartum Procedures [place] [address] [place] [address] Referral ID Status Reason Start Date Expiration Date V isits Requested Visits Authorized [id number] Pending Review 06/21/2023 06/20/2024 1 1 EKEEPING ASSISTANT Encounter Details Date Type Department Care Team (Late st Contact Info) Description 06/21/2023 Transcribe Orders [facility] M[facility] Medicine [facility] [place] [address] [facility] [address] [place] [phone] Renee Bennett MD [facility] [place], [place] [phone] related condition, antepartum (Primary Dx) Social History [...] st Contact Info) Description 07/26/2023 8:00 AM HOUSEKEEPING ASSISTANT Appointment [facility] Maternal Medicine [facility] [address] [facility] [address] [place] [address] Rayshawn Nunez MD [address] [place] [address] 07/26/2023 8:30 AM HOUSEKEEPING ASSISTANT Office Visit [facility] Maternal Medicine [facility] [address] [facility] [address] [place] [phone] Rayshawn Nunez MD [address] [place] [address] 07/29/2023 8:00 AM HOUSEKEEPING ASSISTANT Office Visit [address] [phone] Renee Bennett MD [address] [place] [address] 6[address] 07/29/2023 11:45 AM HOUSEKEEPING ASSISTANT Appointment [facility] Maternal Medicine [facility] [address] [phone] Jennifer Boyer MD [address] [place], [place] [address] 07/29/2023 12:15 PM HOUSEKEEPING ASSISTANT Office Visit [facility] Maternal Medicine [place] [address] [phone] Jennifer Boyer MD [address] [place], [place] [address] 08/05/2023 8:00 AM HOUSEKEEPING ASSISTANT Office Visit [address] [phone] Renee Bennett MD [address] [place] [address] [phone] 08/23/2023 Hospital Encounter [facility] Birthplace [address] [place] [address] Renee Bennett MD [address] [place] [address] [phone] documented as of this encounter Results * MFM US Comprehensive Single (07/01/2023 8:44 AM HOUSEKEEPING ASSISTANT) Anatomical Region Laterality Modality Ultrasound 07/01/2023 7:55 AM HOUSEKEEPING ASSISTANT Impressions 07/01/2023 10:53 AM HOUSEKEEPING ASSISTANT IMPRESSION ----- 1) Brumfield intrauterine at 32w [...] BPP was reassuring. Narrative 07/01/2023 10:53 AM HOUSEKEEPING ASSISTANT ?Comprehensive ----- Pat. Name: JUAN RENEEA ? Study Date: ??07/01/2023 7:55am Pat. NO: ??[id number] ?Referring ??: RENEE BENNETT Site: ??[facility] ? Leaf Sucker Operator: Kirstin Gold RDMS : ??1995 ?Age: [...] 4 lb 5 ?oz EFW by ?Hadlock ([id number]) Head / Face / Neck Biometry: Button Riveter ? 6.3 ? mm CM ?8.5 ? [...] vena cava. Inferior vena cava. 3-vessel view. 5-hzwrbf-uvxcmyd view. ? Cardiac position. Cardiac size. Cardiac [...] the patient (reviewing medical records/tests), in direct hijd-rz-upcx contact with the patient during her visit with the majority spent counseling and discussing the plan of care and documenting the visit in the electronic medical record. Please see note for details. Procedure Note Jennifer Boyer MD - 07/01/2023 Comprehensive ----- Pat. Name: YU RENEE Study Date: 07/01/2023 7:55am Pat. NO: [id number] Referring MD: RENEE BENNETT Site: [facility] Leaf Sucker Operator: Kirstin Gold RDMS : 1995 Age: 27 [...] 4 lb 5 oz EFW by Hadlock ([id number]-FL) Head / Face / Neck Biometry: Button Riveter 6.3 mm CM 8.5 mm ANATOMY ----- The following structures appear normal: Head / Neck Cranium. Head size. Head shape.Lateral ventricles. Choroid plexus. Midline falx. Cavum septi pellucidi.Cerebellum. Cisterna magna. Parenchyma. Thalami. Vermis. Neck. Face Lips. Heart / Thorax 4-chamber view. RVOT view. LVOT view.Situs. Bicaval view. Superior vena cava. Inferior vena cava. 3-vesselview. 6-xbsxko-ruadonx view. Cardiac position. Cardiac size.Cardiac rhythm. Right [...] see the patient (reviewing medical records/tests), in kpehshvwaq-gw-obko contact with the patient during her visit [...] The BPP was reassuring. Renee Bennett MD [facility] S documented in this encounter Visit Diagnoses Diagnosis related condition, antepartum- Primary related condition, antepartum documented in this encounter Additional Health Concerns Assessment Noted Time PHQ-9 Depression Total Score: 0 05/17/20 23 9:06 AM HOUSEKEEPING ASSISTANT documented as of this encounter Care Teams Lute Packer Or Applier Relationship Specialty Start Date End Date Renee Bennett MD [address] [place], [place] [phone] PCP - General Family Medicine 07/07/20 [place] [address] [place] [address] [phone] Assigned PCP 08/14/[address] [facility] [place] [address] [place] [address] Depot Agent Dietitian, Registered 06/14/23 documented as of this encounter
--- OUTSIDE RECORDS SUMMARY | 2023-07-22 16:07 | XMS_ITS | Encounter Summary ---
Author Name Unknown Organization [place] Address [address] [place] [address]. [place] [address] Care Team Providers Care Cable Supervisor Name Role Phone Laureano Bennett MD Primary Care Provider [phone] Laureano Bennett MD Unavailable [phone] Encounter Details Date Type Department Care [...] st Contact Info) Description 07/26/2023 8:00 AM MACHINE BUILDER Appointment [facility] Maternal Medicine [place] [address] [phone] Rayshawn Nunez MD [address] [place] [address] 07/26/2023 8:30 AM MACHINE BUILDER Office Visit [facility] Medicine [place] [address] [phone] Rayshawn Nunez MD [address] [place] [address] 07/29/2023 8:00 AM MACHINE BUILDER Office Visit [address] [phone] [place] [address] [place] [address] 07/29/2023 11:45 AM MACHINE BUILDER Appointment [facility] Maternal Medicine [place] [address] [phone] Jennifer Boyer MD [address] [place], [place] [address] 07/29/2023 12:15 PM MACHINE BUILDER Office Visit [facility] Maternal Medicine [place] [address] [phone] Jennifer Boyer MD [address] [place] [address] 08/05/2023 8:00 AM MACHINE BUILDER Office Visit [address] [phone] Laureano Bennett MD [address] [place] [address] 08/23/[address] [facility] Birthplace [address] [place] [address] Laureano Bennett MD [address] [place] [address] 952102 documented as of this encounter Visit Diagnoses Not on filedocumented in this encounter Additional Health Concerns Assessment Noted Time PHQ-9 Depression Total Score: 0 05/17/20 23 9:06 AM MACHINE BUILDER documented as of this encounter Care Teams Cable Supervisor Relationship Specialty Start Date End Date Laureano Bennett MD [address] [place] [address] PCP - General Family Medicine 07/07/20 Laureano Bennett MD [address] [place] [address] Assigned PCP 08/14/22 documented as of this encounter
--- OUTSIDE RECORDS SUMMARY | 2023-07-22 16:07 | XMS_ITS | Encounter Summary ---
Author Name Unknown Organization [place] Address [address] [facility] [place] [address] Care Team Providers Care Shingle Inspector Name Role Phone Laureano Bennett MD Primary Care Provider [phone] Laureano Bennett MD Unavailable [phone] Encounter Details Date Type Department Care Team (Late st Contact Info) Description 05/31/2023 8:00 AM SCREEN TACKER Lab [facility] [address] [place] [phone] Elevated glucose Social History Tobacco Use [...] st Contact Info) Description 07/26/2023 8:00 AM SCREEN TACKER Appointment [facility] Maternal Medicine [place] [address] [address] [facility] [address] [place] [phone] Rayshawn Nunez MD [address] [place], [place] [address] 07/26/2023 8:30 AM SCREEN TACKER Office Visit [facility] Medicine [place] [address] [address] [facility] [address] [place] [phone] Rayshawn Nunez MD [address] [place], [place] [address] 07/29/2023 8:00 AM SCREEN TACKER Office Visit [address] [phone] Laureano Bennett MD [address] [place] [address] 07/29/2023 11:45 AM SCREEN TACKER Appointment [facility] Maternal Medicine [place] [address] [address] [facility] [address] [place] [phone] Jennifer Boyer MD [address] [place] [address] 07/29/2023 12:15 PM SCREEN TACKER [facility] [place] [address] [place] [address] Jennifer Boyer MD [address] [place], [place] [address] [place] [address] 08/05/2023 8:00 AM SCREEN TACKER Office Visit [address] [phone] [place] [address] [place] [address] [phone] 08/23/[address] [facility] Birthplace [address] [place] [address] Laureano Bennett MD [address] [place] [address] [phone] documented as of this encounter Procedures Procedure Name Priority Date/Time Associated Diagnosis Comments GESTATIONAL GLUCOSE TOLERANCE TESTING, 3 HOUR Routine 05/31/2023 11:21 AM SCREEN TACKER Elevated glucose GESTATIONAL GLUCOSE TOLERANCE TESTING, 2 HOUR Routine 05/31/2023 10:14 AM SCREEN TACKER Elevated glucose GESTATIONAL GLUCOSE TOLERANCE TESTING, 1 HOUR Routine 05/31/2023 9:17 AM SCREEN TACKER Elevated glucose GESTATIONAL GLUCOSE TOLERANCE TESTING, FASTING Routine 05/31/2023 8:00 AM SCREEN TACKER Elevated glucose GESTATIONAL GLUCOSE TOLERANCE TESTING, 3 HOUR Routine 05/31/2023 8:00 AM SCREEN TACKER Elevated glucose documented in this encounter Results * Gestational Glucose Tolerance Testing, 3 Hour (05/31/2023 11:21 AM SCREEN TACKER) Gestational GTT 3 Hr Post Dose 110 60 - 139 mg/dL 06/02/2023 12:14 AM SCREEN TACKER [facility] Blood BLOOD SPECIMEN / Unknown Venipuncture / Unknown 05/31/2023 11:21 AM SCREEN TACKER 05/31/2023 11:21 AM SCREEN TACKER Narrative [facility] - 06/02/2023 12:14 AM SCREEN TACKER Blood glucose levels collected at fasting, 1 [...] LAB - BLOOD ORDERABL ES [facility] Core Lab [address] [facility], [address] [place] [address], [facility] [phone] * (ABNORMAL) Gestational Glucose Tolerance Testing, 2 Hour (05/31/2023 10:14 AM SCREEN TACKER) Gestational GTT 2 Hr Post Dose 218(H) 60 - 154 mg/dL 06/01/2023 2:26 PM SCREEN TACKER [facility] Blood BLOOD SPECIMEN / Unknown Venipuncture / Unknown 05/31/2023 10:14 AM SCREEN TACKER 05/31/2023 10:14 AM SCREEN TACKER Laureano Bennett MD LAB - BLOOD ORDERABL ES [facility] Acute Care Lab [address] [facility], [address] [place] [address], [place] [phone] * (ABNORMAL) Gestational Glucose Tolerance Testing, 1 Hour (05/31/2023 9:17 AM SCREEN TACKER) Gestational GTT 1 Hr Post Dose 192(H) 60 - 179 mg/dL 05/31/2023 5:31 PM SCREEN TACKER [facility] Blood BLOOD SPECIMEN / Unknown Venipuncture / Unknown 05/31/2023 9:17 AM SCREEN TACKER 05/31/2023 9:17 AM SCREEN TACKER Laureano Bennett MD LAB - BLOOD ORDERABL ES Performing Organization Address City/[facility]/ZIP Co de Phone Number [facility] [place] Core Lab [address] [facility], [address] [place] [address], [facility] [phone] * (ABNORMAL) Gestational Glucose Tolerance Testing, Fasting (05/31/2023 8:00 AM SCREEN TACKER) Gestational GTT Fasting 123(H) 60 - 94 mg/dL 05/31/2023 7:28 PM SCREEN TACKER [facility] Blood BLOOD SPECIMEN / Unknown Venipuncture / Unknown 05/31/2023 8:00 AM SCREEN TACKER 05/31/2023 8:06 AM SCREEN TACKER Laureano Bennett MD LAB - BLOOD ORDERABL ES Performing Organization Address City/[facility]/ZIP Co de Phone Number [facility] [place] Core Lab [address] [facility], [address] [place] [address], [facility] [phone] documented in this encounter Visit Diagnoses Diagnosis Elevated glucose Other abnormal glucose documented in this encounter Additional Health Concerns Assessment Noted Time PHQ-9 Depression Total Score: 0 05/17/20 9:06 AM SCREEN TACKER documented as of this encounter Care Teams Shingle Inspector Relationship Specialty Start Date End Date Laureano Bennett MD [address] [place] [address] PCP - General Family Medicine 07/07/20 Laureano Bennett MD [address] [place] [address] Assigned PCP 08/14/22 documented as of this encounter
--- OUTSIDE RECORDS SUMMARY | 2023-07-22 16:07 | XMS_ITS | Encounter Summary ---
Author Name Unknown Organization [facility] Address [address] [place] [address]. [place] [address] Care Team Providers Care Event Staff Name Role Phone Laureano Bennett MD Primary Care Provider [phone] Laureano Bennett MD Unavailable [phone] Unavailable [phone] Reason for Visit * Reason Comments Diabetes Education Gestational Diabetes Encounter Details Date Type Department Care Team (Late st Contact Info) Description 06/14/2023 10:45 AM HINGING MACHINE OPERATOR Virtual Visit [address] [phone] Eugenie Zee, ALEX [address] [address] Gestational diabetes mellitus (GDM), antepartum, gestational diabetes [...] Eugenie Zee RD - 06/14/2023 10:45 AM HINGING MACHINE OPERATOR It was good to meet you today. [...] concerns. Eugenie Zee MS, RD, LD, CDE [facility] for the [facility]: For Your Diabetes Education or Nutrition Appointments Call: [phone] For Diabetes Education and Nutrition Related Questions: E-mail: [email or web address] If you need a medication refill please [...] 2 slices of cheese 2 TBS Peanut butter/Genoa butter/Sun butter ?? cup Cottage cheese 2% [...] Carbohydrate list (about 30 grams of carbohydrate) Maldivian Muffin 10 crackers 1 hamburger or hot dog bun 1 whole wheat mónica 6 maria g cracker squares 1 cup full fat ice cream - no candy or sauce Ecuadorean yogurt - 30 grams of carbohydrate 2 - 6 inch tortillas corn or flour 2 toaster waffles - no syrup 6 cups popcorn - unsweetened 1 cup of unsweetened lentils or beans 1 cup potato salad You can always add vegetables with dip, salad dressing or salsa also. ING MACHINE OPERATOR documented in this encounter Progress Notes * Eugenie Zee RD - 06/14/2023 10:45 AM CST Images from the original note were not included. Diabetes Self-Management Education & Support Type of service: Video Visit If the video visit is dropped, the video visit invitation should be resent by: Text to cell phone: [phone] Originating Location (pt. Location): Home Distant Location (provider location): [facility] Mode of Communication: Video Conference via [employer] Video Start Time: 10:44 Video End Time [...] [id number] 110 05/31/2023 Lifestyle and Health Behaviors: Cultural/restorationist diet restrictions?: No Meal planning/habits: Carb counting [...] brussels sprouts Dinner: vegetables, protein Snacks: Snack- tajik yogurt, cheese, nuts, guacamole HS snack- eggs [...] Glucose Results, Ketone Testing,When to Call a Scrap Preparer or OB Provider, Healthy Eating During , [...] eat CHO and protein/fat at all meals/snacks. Call/e-mail/[employer] message museum educator if 3 or more blood sugars are above the goal in 1 week, if ketones are positive, or with questions/concerns. Eugenie Zee MS, RD, LD, CDE Time Spent: 50 minutes Encounter Type: Individual Any diabetes medication dose changes were made via the CDE Protocol and Collaborative Practice Agreement with the patient's DEPUTY SHERIFF K9 HANDLER provider. A copy of this encounter was shared with the provider. ING MACHINE OPERATOR documented in this encounter Plan of Treatment Upcoming Encounters Date Type Department Care Team (Late st Contact Info) Description 07/26/2023 8:00 AM HINGING MACHINE OPERATOR Appointment [facility] Maternal Medicine [place] [address] [address] [facility] [address] [place] [phone] Rayshawn Nunez MD [address] [place], [place] [address] 07/26/2023 8:30 AM HINGING MACHINE OPERATOR Office Visit [facility] Medicine [place] [address] [address] [facility] [address] [place] [phone] Rayshawn Nunez MD [address] [place], [place] [address] 07/29/2023 8:00 AM HINGING MACHINE OPERATOR Office Visit [address] [phone] Laureano Bennett MD [address] [place] [address] 07/29/2023 11:45 AM HINGING MACHINE OPERATOR Appointment [facility] Maternal Medicine [place] [address] [address] [facility] [address] [place] [phone] Jennifer Boyer MD [address] [place], [place] [address] 07/29/2023 12:15 PM HINGING MACHINE OPERATOR Office Visit [facility] Maternal Medicine [place] [address] [address] [facility] [address] [place] [phone] Jennifer Boyer MD [address] [place], [place] [address] 08/05/2023 8:00 AM HINGING MACHINE OPERATOR Office Visit [address] [phone] Laureano Bennett MD [address] [place] [address] 425[address] 08/23/2023 Hospital Encounter [facility] [address] [place] [phone] Laureano Bennett MD [address] [place] [address] [phone] documented as of this encounter Visit Diagnoses Diagnosis Gestational diabetes mellitus (GDM), antepartum, gestational diabetes method of control unspecified documented in this encounter Additional Health Concerns Assessment Noted Time PHQ-9 Depression Total Score: 0 05/17/20 9:06 AM HINGING MACHINE OPERATOR documented as of this encounter Care Teams Event Staff Relationship Specialty Start Date End Date Laureano Bennett MD [address] [place] [address] [phone] PCP - General Family Medicine 07/07/20 Laureano Bennett MD [address] [place] [address] Assigned PCP 08/14/[address] [facility] [address] [place] [address] Scrap Preparer Dietitian, Registered 06/14/23 documented as of this encounter
--- OUTSIDE RECORDS SUMMARY | 2023-07-22 16:07 | XMS_ITS | Encounter Summary ---
Author Name Unknown Organization [facility] Address [address] [place] [address] Care Team Providers Care Collections Director Name Role Phone Renee Bennett MD Primary Care Provider [phone] Renee Bennett MD Unavailable [phone] Unavailable [phone] Reason for Referral * Diagnostic Imaging Ultrasound (Routine) - Pending Review Specialty Diagnoses / Procedures Referred By Tim nathan Referred To Contact Radiology. Diagnoses related condition, antepartum Procedures [facility] [place] [address] [place] [address] Referral ID Status Reason Start Date Expiration Date V isits Requested Visits Authorized [id number] Pending Review 06/21/2023 06/20/2024 1 1 Y EQUIPMENT SERVICE TECHNICIAN Reason for Visit * Diagnostic Imaging Ultrasound (Routine) - Pending Review Specialty Diagnoses / Procedures Referred By Tim nathan Referred To Contact Radiology. Diagnoses related condition, antepartum Procedures [facility] Comprehensive Single Renee Bennett MD [address] [place] [address] Referral ID Status Reason Start Date Expiration Date V isits Requested Visits Authorized [id number] Pending Review 06/21/2023 06/20/2024 1 1 Encounter Details Date Type Department Care Team (Latest Contact Info) Description 07/01/2023 7:54 AM HEAVY EQUIPMENT SERVICE TECHNICIAN - 07/01/2023 11:59 PM HEAVY EQUIPMENT SERVICE TECHNICIAN Hospital Encounter [facility] Maternal Medicine [facility] [place] [address] [place] [address] Jennifer Boyer MD [address] [facility] [address] [place] [address] related condition, antepartum Discharge Disposition: Home or [...] st Contact Info) Description 07/26/2023 8:00 AM HEAVY EQUIPMENT SERVICE TECHNICIAN Appointment [facility] Medicine [place] [address] [address] [facility] [address] [place] [phone] Rayshawn Nunez MD [address] [place] [address] 07/26/2023 8:30 AM HEAVY EQUIPMENT SERVICE TECHNICIAN Office Visit [facility] Medicine [place] [address] [phone] Rayshawn Nunez MD [address] [place] [address] 07/29/2023 8:00 AM HEAVY EQUIPMENT SERVICE TECHNICIAN Office Visit [address] [phone] Renee Bennett MD [address] [place] [address] 07/29/2023 11:45 AM HEAVY EQUIPMENT SERVICE TECHNICIAN Appointment [facility] Medicine [place] [address] [address] [facility] [address] [place] [phone] Jennifer Boyer MD [address] [place], [place] [address] 07/29/2023 12:15 PM HEAVY EQUIPMENT SERVICE TECHNICIAN Office Visit [facility] Medicine [place] [address] [address] [facility] [address] [place] [phone] Jennifer Boyer MD [address] [place], [place] [address] 08/05/2023 8:00 AM HEAVY EQUIPMENT SERVICE TECHNICIAN Office Visit [address] [phone] [place] [address] [place] [address]172 08/23/2023 Hospital Encounter [facility] Birth[facility] [address] [place] [phone] [place] [address] [place] [address] [phone] documented as of this encounter Procedures Procedure Name Priority Date/Time Associated Diagnosis Comments [facility] COMPREHENSIVE SINGLE Routine 07/01/2023 8:44 AM HEAVY EQUIPMENT SERVICE TECHNICIAN related condition, antepartum documented in this encounter Results * [facility] Comprehensive Single (07/01/2023 8:44 AM HEAVY EQUIPMENT SERVICE TECHNICIAN) Anatomical Region Laterality Modality Ultrasound 07/01/2023 7:55 AM HEAVY EQUIPMENT SERVICE TECHNICIAN Impressions 07/01/2023 10:53 AM HEAVY EQUIPMENT SERVICE TECHNICIAN IMPRESSION ----- 1) Brumfield intrauterine at 32w [...] BPP was reassuring. Narrative 07/01/2023 10:53 AM HEAVY EQUIPMENT SERVICE TECHNICIAN ?Comprehensive ----- Pat. Name: YU RENEE ? Study Date: ??07/01/2023 7:55am Pat. NO: ??[id number] ?Referring ??MD: RENEE BENNETT Site: ??[facility] ? Hot Blast Worker: Kirstin Gold RDMS : ??1995 ?Age: [...] Biometry: BPD ?77.9 ?mm ? 31w 2d ?Hadbenito OFLefty ?103.4 ?mm ? 30w 3d ? Nicolaides HC ?288.2 ?mm ?31w 5d ?Hadlock Cerebellum tr ?43.0 ? mm ?37w 0d ?Nicolaides AC ?285.8 ?mm ?32w 4d ?55% ?Hadlock Femur ?62.3 ? mm ?32w 2d ?Hadlock Humerus ?57.3 ?mm ? 33w 2d ?Randell Weight Calculation: EFW ? 1,943 ?g ? 36% ?Hadlock EFW (lb,oz) ? 4 lb 5 ?oz EFW by ?Hadlock ([id number]) Head / Face / Neck Biometry: Process Area Supervisor ? 6.3 ? mm CM ?8.5 ? [...] vena cava. Inferior vena cava. 3-vessel view. 3-pipgig-qouobwp view. ? Cardiac position. Cardiac size. Cardiac [...] the findings on today's ultrasound with the patientLizzy Nicholas is a 27 yo at 32w 3d [...] the patient (reviewing medical records/tests), in direct xkkj-dw-bfzi contact with the patient during her visit with the majority spent counseling and discussing the plan of care and documenting the visit in the electronic medical record. Please see note for details. Procedure Note Jennifer Boyer MD - 07/01/2023 Comprehensive ----- Pat. Name: YU RENEE Study Date: 07/01/2023 7:55am Pat. NO: [id number] Referring MD: RENEE BENNETT Site: [facility] Hot Blast Worker: Kirstin Gold RDMS : 1995 Age: [...] 4 lb 5 oz EFW by Hadlock ([id number]) Head / Face / Neck Biometry: Process Area Supervisor 6.3 mm CM 8.5 mm ANATOMY ----- The following structures appear normal: Head / Neck Cranium. Head size. Head shape.Lateral ventricles. Choroid plexus. Midline falx. Cavum septi pellucidi.Cerebellum. Cisterna magna. Parenchyma. Thalami. Vermis. Neck. Face Lips. Heart / Thorax 4-chamber view. RVOT view. LVOT view.Situs. Bicaval view. Superior vena cava. Inferior vena cava. 3-vesselview. 8-kyhbhu-rsojkun view. Cardiac position. Cardiac size.Cardiac rhythm. Right [...] see the patient (reviewing medical records/tests), in misywdovst-iv-xsnp contact with the patient during her visit [...] The BPP was reassuring. Renee Bennett MD IMG [facility] US ORDERABLE S documented in this encounter Visit Diagnoses Diagnosis related condition, antepartum documented in this encounter Additional Health Concerns Assessment Noted Time PHQ-9 Depression Total Score: 0 05/17/20 23 9:06 AM HEAVY EQUIPMENT SERVICE TECHNICIAN documented as of this encounter Care Teams Collections Director Relationship Specialty Start Date End Date Renee Bennett MD [address] [place] [address] [phone] PCP - General Family Medicine 07/07/20 Renee Bennett MD [address] [place] [address] Assigned PCP 08/14/[address] [place] [address] Manager Group Home Dietitian, Registered 06/14/23 documented as of this encounter
--- OUTSIDE RECORDS SUMMARY | 2023-07-22 16:07 | XMS_ITS | Encounter Summary ---
Author Name Unknown Organization [facility] Address [address] [place] [address] Care Team Providers Care Seam Press Operator Name Role Phone Laureano Bennett MD Primary Care Provider Laureano Bennett MD Unavailable [phone] Reason for Referral * Patient Education (Urgent: 3-5 Days) - Referral NOT Required Specialty Diagnoses / Procedures Referred By Contac t Referred To Contact Diabetes Education Diagnoses Gestational diabetes mellitus (GDM), antepartum, gestational diabetes method of control unspecified Laureano Bennett MD [address] [place] [address] Referral ID Status Reason Start Date Expiration Date V isits Requested Visits Authorized [id number] Referral NOT Required 06/03/2023 06/02/2024 1 1 [...] office within 2 business days, please call [phone] for [facility], for [facility] or [phone] for the [facility]. Medicare covers: 10 hours of initial [...] and G0109) and Medical Nutrition Therapy (Codes 30436 and 43879) benefits and ask which blood glucose monitor brands are covered by your plan. Please bring the following with you to your appointment: 1. List of current medications 2. List of Blood Glucose Monitor brands that are covered by your insurance plan 3. Blood Glucose Monitor and log book 4. Food records for the 3 days prior to your visit OVISUAL LEAD TECHNICIAN Reason for Visit * Reason Comments Care Encounter Details Date Type Department Care Team (Late st Contact Info) Description 06/03/2023 8:00 AM AUDIOVISUAL LEAD TECHNICIAN Office Visit [address] [phone] Laureano Bennett MD [address] [place] [address] , unspecified gestational age (Primary Dx); Varicose [...] Comments Blood Pressure 118/64 06/03/2023 7:53 AM AUDIOVISUAL LEAD TECHNICIAN Pulse 73 06/03/2023 7:53 AM AUDIOVISUAL LEAD TECHNICIAN Temperature 36.6 ??C (97.9 ??F) 06/03/2023 7:53 AM CS T Respiratory Rate 16 06/03/2023 7:53 AM AUDIOVISUAL LEAD TECHNICIAN Oxygen Saturation 100% 06/03/2023 7:53 AM AUDIOVISUAL LEAD TECHNICIAN Inhaled Oxygen Concentration - - Weight 79.6 kg (175 lb 6.4 oz) 06/03/2023 7:53 A M AUDIOVISUAL LEAD TECHNICIAN Height 174 cm (5' 8.5) 06/03/2023 7:53 AM AUDIOVISUAL LEAD TECHNICIAN Body Mass Index 26.28 06/03/2023 7:53 AM AUDIOVISUAL LEAD TECHNICIAN documented in this encounter Patient Instructions * Patient Instructions* Laureano Bennett MD - 06/03/2023 8:00 AM AUDIOVISUAL LEAD TECHNICIAN Real Food for Gestational Diabetes: An Effective Alternative to the Conventional Nutrition Approach- Eloise Green ?Fasting and preprandial blood glucose concentration: <95 mg/dL (5.3 mmol/L) ?One-hour postprandial blood glucose concentration: <140 mg/dL (7.8 mmol/L) ?Two-hour postprandial glucose concentration: <120 mg/dL (6.7 mmol/L) OVISUAL LEAD TECHNICIAN documented in this encounter Progress Notes [...] - Eloise Green Return in 2 weeks. OVISUAL LEAD TECHNICIAN documented in this encounter Plan of Treatment Upcoming Encounters Date Type Department Care Team (Late st Contact Info) Description 07/26/2023 8:00 AM AUDIOVISUAL LEAD TECHNICIAN Appointment [facility] Maternal Medicine [facility] [address] [facility] [address] [place] [address] Rayshawn Nunez MD [address] [place] [address] 07/26/2023 8:30 AM AUDIOVISUAL LEAD TECHNICIAN Office Visit [facility] Maternal Medicine [facility] [address] [facility] [address] [place] [address] Rayshawn Nunez MD [address] [place] [address] 07/29/2023 8:00 AM AUDIOVISUAL LEAD TECHNICIAN Office Visit [address] [phone] Laureano Bennett MD [address] [place] [address] 07/29/2023 11:45 AM AUDIOVISUAL LEAD TECHNICIAN Appointment [facility] Medicine [facility] [address] [facility] [address] [place] [phone] Jennifer Boyer MD [address] [place] [address] 07/29/2023 12:15 PM AUDIOVISUAL LEAD TECHNICIAN Office Visit [facility] Maternal Medicine [facility] [address] [facility] [address] [place] [phone] Jennifer Boyer MD [address] [place] [address] 08/05/2023 8:00 AM AUDIOVISUAL LEAD TECHNICIAN Office Visit [address] [phone] Laureano Bennett MD [address] [place] [address] 08/23/2023 Hospital Encounter [facility] [address] [place] [address] Laureano Bennett MD [address] [place] [address]142 Scheduled Referrals Name Type Priority Associated Diagnoses Orde r Schedule AMB Adult Service Rig Operator Referral Referral Urgent: 3-5 Days Gestational diabetes mellitus (GDM), antepartum, gestational diabetes method of control unspecified Expected: 06/03/2023 (Approximate), Expires: 06/03/2024 documented as of this encounter Procedures Procedure Name Priority Date/Time Associated Diagnosis Comments GLUCOSE ALBUMIN OB URINE Routine 06/03/2023 8:42 AM AUDIOVISUAL LEAD TECHNICIAN , unspecified gestational age documented in this encounter Results * (ABNORMAL) Glucose and albumin, OB urine (06/03/2023 8:42 AM AUDIOVISUAL LEAD TECHNICIAN) Protein Albumin Urine Negative Negative mg/dL 06/03/2023 8:44 AM AUDIOVISUAL LEAD TECHNICIAN [facility] Glucose Urine 100(A) Negative mg/dL 06/03/2023 8:44 AM AUDIOVISUAL LEAD TECHNICIAN [facility] Urine MID-STREAM URINE SPECIMEN / Unknown Non-blood Collection / Unknown 06/03/2023 8:42 AM AUDIOVISUAL LEAD TECHNICIAN 06/03/2023 8:42 AM AUDIOVISUAL LEAD TECHNICIAN Laureano Bennett MD LAB - URINE ORDERABL ES [facility] [address] [place] [address] Lab (no room number, 1st floor of clinic) [place] [address], [facility] [phone] documented in this encounter Visit Diagnoses Diagnosis , unspecified gestational age- Primary Varicose veins during Gestational diabetes mellitus (GDM), antepartum, gestational diabetes method of control unspecified documented in this encounter Additional Health Concerns Assessment Noted Time PHQ-9 Depression Total Score: 0 05/17/20 23 9:06 AM AUDIOVISUAL LEAD TECHNICIAN documented as of this encounter Care Teams Seam Press Operator Relationship Specialty Start Date End Date Laureano Bennett MD [address] [place] [address] PCP - General Family Medicine 07/07/20 Laureano Bennett MD [address] [place] [address] Assigned PCP 08/14/22 documented as of this encounter
--- OUTSIDE RECORDS SUMMARY | 2023-07-22 16:07 | XMS_ITS | Encounter Summary ---
Author Name Unknown Organization [facility] Address [address] [facility] [place] [address] Care Team Providers Care Furnace Filler Name Role Phone Laureano Bennett MD Primary Care Provider [phone] Laureano Bennett MD Unavailable [phone] Unavailable [phone] Encounter Details Date Type Department Care [...] st Contact Info) Description 07/26/2023 8:00 AM PANTOGRAPH I ENGRAVER Appointment [facility] Maternal Medicine [place] [address] [address] [facility] [address] [place] [phone] Rayshawn Nunez MD [address] [place], [place] [phone] 07/26/2023 8:30 AM PANTOGRAPH I ENGRAVER Office Visit [facility] Medicine [place] [address] [address] [facility] [address] [place] [phone] Rayshawn Nunez MD [address] [place], [place] [address] 07/29/2023 8:00 AM PANTOGRAPH I ENGRAVER Office Visit [address] [phone] Laureano Bennett MD [address] [place] [address] 07/29/2023 11:45 AM PANTOGRAPH I ENGRAVER Appointment [facility] Maternal Medicine [place] [address] [address] [facility] [address] [place] [phone] Jennifer Boyer MD [address] [place], [place] [address] 07/29/2023 12:15 PM PANTOGRAPH I ENGRAVER Office Visit [facility] Maternal Medicine [place] [address] [phone] Jennifer Boyer MD [address] [place] [address] 08/05/2023 8:00 AM PANTOGRAPH I ENGRAVER Office Visit [address] [phone] Laureano Bennett MD [address] [place] [address] [phone] 08/23/2023 Hospital Encounter [facility] [address] [place] [phone] Laureano Bennett MD [address] [place] [address]862 documented as of this encounter Visit Diagnoses Not on filedocumented in this encounter Additional Health Concerns Assessment Noted Time PHQ-9 Depression Total Score: 0 05/17/20 23 9:06 AM PANTOGRAPH I ENGRAVER documented as of this encounter Care Teams Furnace Filler Relationship Specialty Start Date End Date Laureano Bennett MD [address] [place] [address] PCP - General Family Medicine 07/07/20 Laureano Bennett MD [address] [place] [address] Assigned PCP 08/14/[address] [facility] [address] [place] [address] Panel Maker Dietitian, Registered 06/14/23 documented as of this encounter
--- OUTSIDE RECORDS SUMMARY | 2023-07-22 16:07 | XMS_ITS | Encounter Summary ---
Author Name Unknown Organization [place] Address [address] [place] [address]. [place] [address] Care Team Providers Care Negative Stripper Name Role Phone Laureano Bennett MD Primary Care Provider [phone] Laureano Bennett MD Unavailable [phone] Encounter Details Date Type Department Care [...] st Contact Info) Description 07/26/2023 8:00 AM GAS STATION CASHIER Appointment [facility] [place] [address] [address] Rayshawn Nunez MD [address] [place] [address] 07/26/2023 8:30 AM GAS STATION CASHIER Office Visit [facility] Medicine [place] [address] [address] Rayshawn Nunez MD [address] [place] [address] 07/29/2023 8:00 AM GAS STATION CASHIER Office Visit [address] [address] [place] [address] [place] [address] 07/29/2023 11:45 AM GAS STATION CASHIER Appointment [facility] [place] [address] [address] Jennifer Boyer MD [address] [place], [place] [address] 07/29/2023 12:15 PM GAS STATION CASHIER Office Visit [facility] [place] [address] [address] Jennifer Boyer MD [address] [place] [address] 08/05/2023 8:00 AM GAS STATION CASHIER Office Visit [address] [address] Laureano Bennett MD [address] [place] [address]262 08/23/2023 Hospital Encounter M [facility] Birthplace [address] [place] [address] Laureano Bennett MD [address] [place] [address] [phone] documented as of this encounter Visit Diagnoses Not on filedocumented in this encounter Additional Health Concerns Assessment Noted Time PHQ-9 Depression Total Score: 0 05/17/20 23 9:06 AM GAS STATION CASHIER documented as of this encounter Care Teams Negative Stripper Relationship Specialty Start Date End Date Laureano Bennett MD [address] [place] [address] PCP - General Family Medicine 07/07/20 Laureano Bennett MD [address] [place] [address] Assigned PCP 08/14/22 documented as of this encounter
--- OUTSIDE RECORDS SUMMARY | 2023-07-22 16:07 | XMS_ITS | Encounter Summary ---
Author Name Unknown Organization [place] Address [facility]0 [place] [address] Care Team Providers Care Tromper Name Role Phone Laureano Bennett MD Primary Care Provider Laureano Bennett MD Unavailable [phone] Unavailable [phone] Reason for Visit * Reason Onset Date Comments Referral 06/10/2023 No available chema ts for classes virtually for expected time of the referral Encounter Details Date Type Department Care Team ([facility] st Contact Info) Description 06/10/[address] [phone] Unknown, Provider Referral (No available appts for [...] Radha Pascal RD - 06/14/2023 7:59 AM ANGIOGRAPHY TECHNOLOGIST Contacted Yu today to discuss scheduling. Scheduled with Eugenie at 1045 am virtual visit today. Radha Pascal RD, LD, [facility] Certified Diabetes Care & Resort Housekeeper Outpatient Adult Care - [facility] OGRAPHY TECHNOLOGIST * Telephone Encounter - Terri Carlos - 06/10/2023 12:32 PM CST [facility] Phone Message May a detailed message be [...] (CSC): Diab ed Travel Screening: Not Applicable OGRAPHY TECHNOLOGIST documented in this encounter Plan of Treatment Upcoming Encounters Date Type Department Care Team (Late st Contact Info) Description 07/26/2023 8:00 AM ANGIOGRAPHY TECHNOLOGIST Appointment [facility] M[facility] Medicine Center [place] [address] [facility] [address] [place] [address] Rayshawn Nunez MD [address] [place] [address] 07/26/2023 8:30 AM ANGIOGRAPHY TECHNOLOGIST Office Visit [facility] Maternal Medicine [place] [address] [place] [address] Rayshawn Nunez MD [address] [place] [address] 07/29/2023 8:00 AM ANGIOGRAPHY TECHNOLOGIST Office Visit [address] [phone] Laureano Bennett MD [address] [place] [address]39[address] 07/29/2023 11:45 AM ANGIOGRAPHY TECHNOLOGIST Appointment [facility] Maternal Medicine [place] [address] [facility] [place] [phone] Jennifer Boyer MD [address] [place] [address] 07/29/2023 12:15 PM ANGIOGRAPHY TECHNOLOGIST Office Visit [facility] Maternal Medicine [place] [address] [facility] [place] [phone] Jennifer Boyer MD [address] [place] [address] 08/05/2023 8:00 AM ANGIOGRAPHY TECHNOLOGIST Office Visit [address] [phone] Laureano Bennett MD [address] [place] [address] 4560[address] 08/23/2023 Hospital Encounter [facility] Birthplace [address] [place] [phone] Laureano Bennett MD [address] [place] [address] [phone] documented as of this encounter Visit Diagnoses Not on filedocumented in this encounter Additional Health Concerns Assessment Noted Time PHQ-9 Depression Total Score: 0 05/17/20 23 9:06 AM ANGIOGRAPHY TECHNOLOGIST documented as of this encounter Care Teams Tromper Relationship Specialty Start Date End Date Laureano Bennett MD [address] [place] [address] [phone] PCP - General Family Medicine 07/07/20 Laureano Bennett MD [address] [place] [address] [phone] Assigned PCP 08/14/[address] [place] [address] [place] [address] Occ Therapy Asst Dietitian, Registered 06/14/23 documented as of this encounter
--- OUTSIDE RECORDS SUMMARY | 2023-07-22 16:07 | XMS_ITS | Encounter Summary ---
Author Name Unknown Organization [place] Address [address] [facility] [place] [address] Care Team Providers Care Paratransit Driver Name Role Phone Laureano Bennett MD Primary Care Provider Laureano Bennett MD Unavailable [phone] Unavailable [phone] Encounter Details Date Type Department Care [...] st Contact Info) Description 07/26/2023 8:00 AM REGIONAL EDUCATION COORDINATOR Appointment [facility] Maternal Medicine [place] [address] [facility] [address] [place] [phone] Rayshawn Nunez MD [address] [place], [place] [address] 07/26/2023 8:30 AM REGIONAL EDUCATION COORDINATOR Office Visit [facility] Medicine [place] [address] [address] [facility] [address] [place] [phone] Rayshawn Nunez MD [address] [place], [place] [address] 07/29/2023 8:00 AM REGIONAL EDUCATION COORDINATOR Office Visit [address] [phone] Laureano Bennett MD [address] [place] [address] 07/29/2023 11:45 AM REGIONAL EDUCATION COORDINATOR Appointment [facility] M[facility] Medicine [place] [address] [address] [facility] [address] [place] [phone] Jennifer Boyer MD [address] [place], [place] [address] 07/29/2023 12:15 PM REGIONAL EDUCATION COORDINATOR Office Visit [facility] Maternal Medicine [place] [address] [address] Jennifer Boyer MD [address] [place] [address] 08/05/2023 8:00 AM REGIONAL EDUCATION COORDINATOR Office Visit [address] [address] Laureano Bennett MD [address] [place] [address] 474192 08/23/2023 Hospital Encounter M [facility] [address] [place] [address] Laureano Bennett MD [address] [place] [address] 525162 documented as of this encounter Visit Diagnoses Not on filedocumented in this encounter Additional Health Concerns Assessment Noted Time PHQ-9 Depression Total Score: 0 05/17/20 23 9:06 AM REGIONAL EDUCATION COORDINATOR documented as of this encounter Care Teams Paratransit Driver Relationship Specialty Start Date End Date Laureano Bennett MD [address] [place] [address] PCP - General Family Medicine 07/07/20 Laureano Bennett MD [address] [place] [address] 46867 Assigned PCP 08/14/[address] [facility] [place] [address] [place] [address] Event Specialist Food Demonstrator Dietitian, Registered 06/14/23 documented as of this encounter
--- OUTSIDE RECORDS SUMMARY | 2023-07-22 16:08 | XMS_ITS | Encounter Summary ---
Author Name Unknown Organization [place] Address [address] [place] [address]. [place] [address] Care Team Providers Care Manager Small Business Name Role Phone Laureano Bennett MD Primary Care Provider [phone] Laureano Bennett MD Unavailable [phone] Encounter Details Date Type Department Care Team [...] st Contact Info) Description 07/26/2023 8:00 AM COMPENSATION/BENEFITS SPECIALIST Appointment [facility] Maternal Medicine [place] [address] [address] Rayshawn Nunez MD [address] [place] [address] 07/26/2023 8:30 AM COMPENSATION/BENEFITS SPECIALIST Office Visit [facility] Medicine [place] [address] [address] Rayshawn Nunez MD [address] [place] [address] 07/29/2023 8:00 AM COMPENSATION/BENEFITS SPECIALIST Office Visit [address] [address] [place] [address] [place] [address] 07/29/2023 11:45 AM COMPENSATION/BENEFITS SPECIALIST Appointment [facility] Maternal Medicine [place] [address] [address] Jennifer Boyer MD [address] [place], [place] [address] 07/29/2023 12:15 PM COMPENSATION/BENEFITS SPECIALIST Office Visit [facility] Maternal Medicine [place] [address] [address] Jennifer Boyer MD [address] [place] [address] 08/05/2023 8:00 AM COMPENSATION/BENEFITS SPECIALIST Office Visit [address] [address] Laureano Bennett MD [address] [place] [address] 582352 08/23/2023 Hospital Encounter M [facility] [address] [place] [address] Laureano Bennett MD [address] [place] [address] [phone] documented as of this encounter Visit Diagnoses Not on filedocumented in this encounter Additional Health Concerns Assessment Noted Time PHQ-9 Depression Total Score: 0 05/17/20 23 9:06 AM COMPENSATION/BENEFITS SPECIALIST documented as of this encounter Care Teams Manager Small Business Relationship Specialty Start Date End Date Laureano Bennett MD [address] [place] [address] PCP - General Family Medicine 07/07/20 Laureano Bennett MD [address] [place] [address] Assigned PCP 08/14/22 documented as of this encounter
--- OUTSIDE RECORDS SUMMARY | 2023-07-22 16:08 | XMS_ITS | Encounter Summary ---
Author Name Unknown Organization [place] Address [address] [facility] [place] [address] Care Team Providers Care Java J2Ee Architect Name Role Phone Laureano Bennett MD Primary Care Provider [phone] Laureano Bennett MD Unavailable [phone] Encounter Details Date Type Department Care [...] st Contact Info) Description 07/26/2023 8:00 AM HUMAN RESOURCES RECORDS CLERK Appointment [facility] [place] [address] [facility] [address] [place] [address] Rayshawn Nunez MD [address] [facility] [address] [place] [address] 07/26/2023 8:30 AM HUMAN RESOURCES RECORDS CLERK Office Visit [facility] [address] [facility] [address] [place] [address] Rayshawn Nunez MD [address] [place] [address] 07/29/2023 8:00 AM HUMAN RESOURCES RECORDS CLERK Office Visit [address] [address] Laureano Bennett MD [address] [place] [address] [phone] 07/29/2023 11:45 AM HUMAN RESOURCES RECORDS CLERK Appointment [facility] [address] [facility] [address] [place] [address] Jennifer Boyer MD [address] [place] [address] 07/29/2023 12:15 PM HUMAN RESOURCES RECORDS CLERK Office Visit [facility] [address] [facility] [address] [place] [address] Jennifer Boyer MD [address] [place] [address] 08/05/2023 8:00 AM HUMAN RESOURCES RECORDS CLERK Office Visit [address] [address] Laureano Bennett MD [address] [place] [address] 08/23/2023 Hospital Encounter [facility] Birthplace [address] [place] [address] [place] [address] [place] [address] 220322 documented as of this encounter Visit Diagnoses Not on filedocumented in this encounter Additional Health Concerns Assessment Noted Time PHQ-9 Depression Total Score: 12 023 9:01 AM CDT documented as of this encounter Care Teams Java J2Ee Architect Relationship Specialty Start Date End Date Laureano Bennett MD [address] [place] [address] PCP - General Family Medicine 07/07/20 Laureano Bennett MD [address] [place] [address] Assigned PCP 08/14/22 documented as of this encounter
--- OUTSIDE RECORDS SUMMARY | 2023-07-22 16:08 | XMS_ITS | Encounter Summary ---
Author Name Unknown Organization [place] Address [address] [place] [address]. [place] [address] Care Team Providers Care Assistant Distribution Manager Name Role Phone Laureano Bennett MD Primary Care Provider [phone] Laureano Bennett MD Unavailable [phone] Unavailable [phone] Reason for Visit * Reason Onset Date Comments MyChart Communication 03/31/2023 Encounter Details Date Type Department Care Team ([facility] st Contact Info) Description 03/31/2023 MyC Medical Advice [address] [phone] Laureano Bennett MD [address] [place] [address] [phone] MyChart Communication Social History Tobacco Use Types [...] non detailed VM Megha Berg RN, BSN [facility] Triage * Telephone Encounter - Laureano Bennett [...] for review too Megha Berg RN, BSN [facility] Triage documented in this encounter Plan of Treatment Upcoming Encounters Date Type Department Care Team (Late st Contact Info) Description 07/26/2023 8:00 AM BURNISHER AND BUMPER Appointment [facility] Maternal Medicine [place] [address] [address] [facility] [address] [place] [phone] Rayshawn Nunez MD [address] [place], [place] [address] 07/26/2023 8:30 AM BURNISHER AND BUMPER Office Visit [facility] Medicine [place] [address] [address] [facility] [address] [place] [phone] Rayshawn Nunez MD [address] [place], [place] [address] 07/29/2023 8:00 AM BURNISHER AND BUMPER Office Visit [address] [phone] Laureano Bennett MD [address] [place] [address] [phone] 07/29/2023 11:45 AM BURNISHER AND BUMPER Appointment [facility] Maternal Medicine [place] [address] [address] [facility] [address] [place] [phone] Jennifer Boyer MD [address] [place], [place] [address] 07/29/2023 12:15 PM BURNISHER AND BUMPER Office Visit [facility] Maternal Medicine [place] [address] [address] [facility] [address] [place] [phone] Jennifer Boyer MD [address] [place], [place] [address] 08/05/2023 8:00 AM BURNISHER AND BUMPER Office Visit [address] [phone] Laureano Bennett MD [address] [place] [address] 893452 08/23/2023 Hospital Encounter M [facility] Birthplace [address] [place] [phone] Laureano Bennett MD [address] [place] [address] [phone] documented as of this encounter Visit Diagnoses Not on filedocumented in this encounter Additional Health Concerns Assessment Noted Time PHQ-9 Depression Total Score: 12 023 9:01 AM CDT documented as of this encounter Care Teams Assistant Distribution Manager Relationship Specialty Start Date End Date Laureano Bennett MD [address] [place] [address] PCP - General Family Medicine 07/07/20 Laureano Bennett MD [address] [place] [address] Assigned PCP 08/14/[address] [facility] [place] [address] [place] [address] Dietetic Assistant Dietitian, Registered 06/14/23 documented as of this encounter
--- OUTSIDE RECORDS SUMMARY | 2023-07-22 16:08 | XMS_ITS | Encounter Summary ---
Author Name Unknown Organization [place] Address [address] [place] [address]. [place] [address] Care Team Providers Care Supervisor Boatbuilders Wood Name Role Phone Laureano Bennett MD Primary Care Provider [phone] Laureano Bennett MD Unavailable [phone] Encounter Details Date Type Department Care [...] st Contact Info) Description 07/26/2023 8:00 AM WATER/WASTEWATER ENGINEER Appointment [facility] Maternal Medicine [place] [address] [address] [employer] [facility] [address] [place] [phone] Rayshawn Nunez MD [address] [place], [place] [address] 07/26/2023 8:30 AM WATER/WASTEWATER ENGINEER Office Visit [facility] Maternal Medicine [place] [address] [address] [employer] [address] [place] [phone] Rayshawn Nuenz MD [address] [place], [place] 36[address] 07/29/2023 8:00 AM WATER/WASTEWATER ENGINEER Office Visit [address] [place] [phone] Laureano Bennett MD [address] [place] [address] 07/29/2023 11:45 AM WATER/WASTEWATER ENGINEER Appointment [facility] Maternal Medicine [place] [address] [address] [employer] [address] [place] [phone] Jennifer Boyer MD [address] [place], [place] [address]28[address] 07/29/2023 12:15 PM WATER/WASTEWATER ENGINEER Office Visit [facility] Maternal Medicine [place] [address] [facility] [address] [place] [address] Jennifer Boyer MD [address] [facility] [address] [place] [address] 08/05/2023 8:00 AM WATER/WASTEWATER ENGINEER Office Visit [address] [address] Laureano Bennett MD [address] [place] [address] 620922 08/23/2023 Hospital Encounter [facility] Birthplace [address] [place] [address] Laureano Bennett MD [address] [place] [address] documented as of this encounter Visit Diagnoses Not on filedocumented in this encounter Additional Health Concerns Assessment Noted Time PHQ-9 Depression Total Score: 12 023 9:01 AM CDT documented as of this encounter Care Teams Supervisor [employer] Relationship Specialty Start Date End Date Laureano Bennett MD [address] [place] [address] PCP - General Family Medicine 07/07/20 Laureano Bennett MD [address] [place] [address] Assigned PCP 08/14/22 documented as of this encounter
--- OUTSIDE RECORDS SUMMARY | 2023-07-22 16:08 | XMS_ITS | Encounter Summary ---
Author Name Unknown Organization [place] Address [address] [place] [address] Care Team Providers Care Airframe And Powerplant Mechanic Name Role Phone Laureano Bennett MD Primary Care Provider [phone] Laureano Bennett MD Unavailable [phone] Encounter Details Date Type Department Care Team (Late st Contact Info) Description 02/10/2023 MyC Medical Advice [address] [address] Laureano Bennett MD [address] [place] [address] Social History Tobacco Use Types Packs/Day [...] st Contact Info) Description 07/26/2023 8:00 AM TURBINE MEASUREMENTS ENGINEER Appointment [facility] Medicine [place] [address] [phone] Rayshawn Nunez MD [address] [place], [place] [address] 07/26/2023 8:30 AM TURBINE MEASUREMENTS ENGINEER Office Visit [facility] Medicine [place] [address] [phone] Rayshawn Nunez MD [address] [place], [place] [phone] 07/29/2023 8:00 AM TURBINE MEASUREMENTS ENGINEER Office Visit [address] [phone] Laureano Bennett MD [address] [place] [address] 07/29/2023 11:45 AM TURBINE MEASUREMENTS ENGINEER Appointment [facility] Medicine [place] [address] [phone] Jennifer Boyer MD [address] [place], [place] [address] 07/29/2023 12:15 PM TURBINE MEASUREMENTS ENGINEER Office Visit [facility] Maternal Medicine [place] [address] [phone] Jennifer Boyer MD [address] [place] [address] 08/05/2023 8:00 AM TURBINE MEASUREMENTS ENGINEER Office Visit [address] [phone] Laureano Bennett MD [address] [place] [address] 870502 08/23/2023 Hospital Encounter M [facility] Birthplace [address] [place] [phone] Laureano Bennett MD [address] [place] [address] [phone] documented as of this encounter Visit Diagnoses Not on filedocumented in this encounter Additional Health Concerns Assessment Noted Time PHQ-9 Depression Total Score: 12 023 9:01 AM CDT documented as of this encounter Care Teams Airframe And Powerplant Mechanic Relationship Specialty Start Date End Date Laureano Bennett MD [address] [place] [address] [phone] PCP - General Family Medicine 07/07/20 Laureano Bennett MD [address] [place] [address] Assigned PCP 08/14/22 documented as of this encounter
--- OUTSIDE RECORDS SUMMARY | 2023-07-22 16:08 | XMS_ITS | Encounter Summary ---
Author Name Unknown Organization [facility] Address [address] [place] [address] Care Team Providers Care Ob Tech Name Role Phone Laureano Bennett MD Primary Care Provider [phone] Laureano Bennett MD Unavailable [phone] Reason for Visit * Reason Comments Care Encounter Details Date Type Department Care Team ([facility] st Contact Info) Description 02/10/2023 8:00 AM CDT Office Visit [address] [phone] Laureano Bennett MD [address] [place] [phone] , unspecified gestational age (Primary Dx); Hyperemesis [...] GENITALIA: BUS WNL, no lesions noted VAGINA: [place], normal rugae and discharge normal and physiologic, [...] (around 03/13/2023) for visit. Prasad Bennett MD [facility] [address] [place] [address] [email or web address] Office: [phone] Pager: [phone] documented in this encounter Miscellaneous Notes * Result Encounter Note - Laureano Bennett MD - 02/10/2023 8:00 AM CDT Dear Yu, Here is a summary of your recent test results: -All of your labs are essentially normal except some protein in the urine but your blood pressure is good so we will continue to monitor this. For additional lab test information, [email or web address] is a very good reference. Thank you very much for trusting me and [facility]. Have a peaceful day. Healthy regards, Prasad Bennett MD documented in this encounter Plan of Treatment Upcoming Encounters Date Type Department Care Team (Late st Contact Info) Description 07/26/2023 8:00 AM INFECTION PREVENTION SPECIALIST Appointment [facility] Maternal Medicine Center [place] [address] [facility] [address] [place] [address] Rayshawn Nunez MD [address] [place] [address] 07/26/2023 8:30 AM INFECTION PREVENTION SPECIALIST Office Visit [facility] Medicine [facility] [address] [address] [place] [address] Rayshawn Nunez MD [address] [place] [address] 07/29/2023 8:00 AM INFECTION PREVENTION SPECIALIST Office Visit [address] [address] Laureano Bennett MD [address] [place] [phone] 07/29/2023 11:45 AM INFECTION PREVENTION SPECIALIST Appointment [facility] Maternal Medicine [place] [address] [facility] [address] [place] [address] Jennifer Boyer MD [address] [place] [address] 07/29/2023 12:15 PM INFECTION PREVENTION SPECIALIST Office Visit [facility] Maternal Medicine [facility] [address] [facility] [address] [place] [address] Jennifer Boyer MD [address] [place] [address] 08/05/2023 8:00 AM INFECTION PREVENTION SPECIALIST Office Visit [address] [address] Laureano Bennett MD [address] [place] [id number] 08/23/[address] [facility] [address] [place] [address] Laureano Bennett MD [address] [place] [address] documented as of this encounter Procedures Procedure [...] CDT RH BLOOD BANK SPECIMEN EXPIRATION DATE [id number] 02/09/2023 7:00 PM CDT RH BLOOD BANK Blood BLOOD SPECIMEN / Unknown Venipuncture / Unknown 02/10/2023 9:27 AM CDT 02/10/2023 9:27 AM CDT Laureano Bennett MD LAB - BLOOD BANK NELLY T ORDER BLOOD BANK [address] [place] [address] * Urine Culture Aerobic Bacterial (02/10/2023 9:27 AM CDT) Culture <10,000 CFU/mL Urogenital blanca CARLA 02/12/2023 5:44 AM CDT [facility] Urine MID-STREAM URINE SPECIMEN / Unknown Non-blood Collection / Unknown 02/10/2023 9:27 AM CDT 02/10/2023 9:27 AM CDT Laureano Bennett MD LAB - MICRO GENERAL ORDERABLES [facility] Inf. Diseases Diag. Lab [address] [facility], [address] [place] [address], [facility] [phone] * Treponema Abs w Reflex to RPR and Titer (02/10/2023 9:27 AM CDT) Treponema Antibody Total Nonreactive Nonreactive 02/10/2023 6:42 PM CDT SPECIALTY CORE/PROT/EN DO Blood BLOOD SPECIMEN / Unknown Venipuncture / Unknown 02/10/2023 9:27 AM CDT 02/10/2023 9:27 AM CDT Laureano Bennett MD LAB - BLOOD ORDERABL ES UM SPECIALTY CORE/PROT/ENDO UM Specialty Core/Prot/Endo [address] [facility] [address] [facility], [address] [place] [address], [facility] [phone] * Rubella Antibody IgG (02/10/2023 9:27 AM [...] ES UM SPECIALTY CORE/PROT/ENDO Specialty Core/Prot/Endo [address] [facility] [address] [facility] [address] [phone] * HIV Antigen Antibody Combo (02/10/2023 9:27 AM CDT) HIV Antigen Antibody Combo Nonreactive Nonreactive 02/10/2023 8:54 PM CDT SPECIALTY CORE/PROT/EN DO Comment:HIV-1 p24 Ag & HIV-1 /HIV-2 Ab Not Detected Blood BLOOD SPECIMEN / Unknown Venipuncture / Unknown 02/10/2023 9:27 AM CDT 02/10/2023 9:27 AM CDT Laureano Bennett MD LAB - BLOOD ORDERABL ES UM SPECIALTY CORE/PROT/ENDO UM Specialty Core/Prot/Endo [address] [facility] [address] [facility], Room [address] [phone] * CBC with platelets (02/10/2023 9:27 AM [...] LAB - BLOOD ORDERABL ES RV LABORATORY [facility] [address] [place] [address] S E Lab (no room number, 1st floor of clinic) [place] [address], [facility] [phone] * Hepatitis B surface antigen (02/10/2023 9:27 AM CDT) Hepatitis B Surface Antigen Nonreactive Nonreactive 02/10/2023 8:47 PM CDT SPECIALTY CORE/PROT/EN DO Blood BLOOD SPECIMEN / Unknown Venipuncture / Unknown 02/10/2023 9:27 AM CDT 02/10/2023 9:27 AM CDT Laureano Bennett MD LAB - BLOOD ORDERABL ES SPECIALTY CORE/PROT/ENDO Specialty Core/Prot/Endo [address] [facility], [address] [phone] * CHLAMYDIA TRACHOMATIS PCR (02/10/2023 8:59 AM CDT) Chlamydia trachomatis Negative Negative 02/11/2023 12:02 PM CDT [facility] Comment:A negative result by qa internship mediated amplification does not preclude the presence of C. trachomatis infection because results are dependent on proper and adequate collection, absence of inhibitors and sufficient rRNA to be detected. Swab CERVIX UTERI STRUCTURE / Unknown Non-blood Collection / Unknown 02/10/2023 8:59 AM CDT 02/10/2023 9:19 AM CDT Laureano Bennett MD LAB - MICRO GENERAL ORDERABLES [facility] Inf. Diseases Diag. Lab [address] [facility], [address] [place] [address], [facility] [phone] * NEISSERIA GONORRHOEA PCR (02/10/2023 8:59 AM CDT) Neisseria gonorrhoeae Negative Negative 02/11/2023 12:02 PM CDT [facility] Comment:Negative for N. gono rrhoeae rRNA by qa internship mediated amplification. A negative result by qa internship mediated amplification does not preclude the presence of C. trachomatis infection because results are dependent on proper and adequate collection, absence of inhibitors and sufficient rRNA to be detected. Swab CERVIX UTERI STRUCTURE / Unknown Non-blood Collection / Unknown 02/10/2023 8:59 AM CDT 02/10/2023 9:19 AM CDT Laureano Bennett MD LAB - MICRO GENERAL ORDERABLES [facility] Inf. Diseases Diag. Lab [address] [facility], [address] [place] [address], [facility] [phone] * (ABNORMAL) Wet prep - Clinic Collect [...] Bennett MD LAB - MICRO GENERAL ORDERABLES RV LABORATORY [facility] [address] [place] [address] [facility], 1st floor of clinic) [place] [address], [facility] [phone] * Pap screen reflex to HPV if [...] or other cancers. 02/14/2023 11:47 AM CDT UM SPECIALTY LABS Specimen Adequacy Satisfactory for evaluation, [...] component of this testing was completed at [facility] 02/14/2023 11:47 AM CDT SPECIALTY LABS Brushing CERVIX UTERI STRUCTURE / Unknown Non-blood Collection / Unknown 02/10/2023 8:29 AM CDT 02/10/2023 9:18 AM CDT Laureano Bennett MD LAB - MEME INGRAM SPECIALTY LABS Specialty Lab [address] [facility], [address] [place] [address], [facility] [phone] * (ABNORMAL) Albumin Random Urine Quantitative with [...] control, and institution of therapy with an wblzstbbkvr-fxsgjfeddg-diidlm (LUIS) inhibitor (if the patient can tolerate it). ?? Urine URINE SPECIMEN / Unknown Non-blood Collection / Unknown 02/10/2023 7:02 AM CDT 02/10/2023 8:29 AM CDT Laureano Bennett MD LAB - URINE ORDERABL ES U LABORATORY [facility] [place] [facility] [address] [facility], [address] [place] [address], [facility] [phone] * Glucose and albumin, OB urine (02/10/2023 7:02 AM CDT) Protein Albumin Urine Negative Negative mg/dL 02/10/2023 8:31 AM CDT RV LABORATORY Glucose Urine Negative Negative mg/dL 02/10/2023 8:31 AM CDT RV LABORATORY Urine URINE SPECIMEN / Unknown Non-blood Collection / Unknown 02/10/2023 7:02 AM CDT 02/10/2023 8:29 AM CDT Laureano Bennett MD LAB - URINE ORDERABL ES RV LABORATORY [facility] [address] [place] [address] S. E Lab (no room number, 1st floor of clinic) [place] [address], [facility] [phone] documented in this encounter Visit Diagnoses Diagnosis , unspecified gestational age- Primary Hyperemesis Persistent vomiting documented in this encounter Additional Health Concerns Assessment Noted Time PHQ-9 Depression Total Score: 12 01/04/2 023 9:01 AM CDT documented as of this encounter Care Teams Ob Tech Relationship Specialty Start Date End Date Laureano Bennett MD [address] [place] [address] PCP - General Family Medicine 07/07/20 Laureano Bennett MD [address] [place] [address] Assigned PCP 08/14/22 documented as of this encounter
--- OUTSIDE RECORDS SUMMARY | 2023-07-22 16:08 | XMS_ITS | Encounter Summary ---
Author Name Unknown Organization [facility] Address [address] [place] [address]. [place] [address] Care Team Providers Care Hotel Maintenance Worker Name Role Phone Laureano Bennett MD Primary Care Provider [phone] Laureano Bennett MD Unavailable [phone] Encounter Details Date Type Department Care [...] st Contact Info) Description 07/26/2023 8:00 AM WHAT JOB TITLES MEAN Appointment [facility] Maternal Medicine [place] [address] [employer] [facility] [address] [place] [phone] Rayshawn Nunez MD [address] [place], [place] [address] 07/26/2023 8:30 AM WHAT JOB TITLES MEAN Office Visit [facility] Maternal Medicine [place] [address] [place] [address] Rayshawn Nunez MD [address] [place], [place] [address] 07/29/2023 8:00 AM WHAT JOB TITLES MEAN Office Visit [address] [place] [phone] Laureano Bennett MD [address] [place] [address] 07/29/2023 11:45 AM WHAT JOB TITLES MEAN Appointment [facility] Maternal Medicine [place] [address] [place] [phone] Jennifer Boyer MD [address] [place], [place] [address] 07/29/2023 12:15 PM WHAT JOB TITLES MEAN Office Visit [facility] Maternal Medicine Center [place] [address] [facility] [address] [place] [address] Jennifer Boyer MD [address] [facility] [address] [place] [address] 08/05/2023 8:00 AM WHAT JOB TITLES MEAN Office Visit [address] [phone] Laureano Bennett MD [address] [place] [address] 08/23/2023 Hospital Encounter [facility] [address] [place] [address] Laureano Bennett MD [address] [place] [address] documented as of this encounter Visit Diagnoses Not on filedocumented in this encounter Additional Health Concerns Assessment Noted Time PHQ-9 Depression Total Score: 12 023 9:01 AM CDT documented as of this encounter Care Teams Hotel Maintenance Worker Relationship Specialty Start Date End Date Laureano Bennett MD [address] [place] [address] PCP - General Family Medicine 07/07/20 Laureano Bennett MD [address] [place] [address] Assigned PCP 08/14/22 documented as of this encounter
--- OUTSIDE RECORDS SUMMARY | 2023-07-22 16:08 | XMS_ITS | Encounter Summary ---
Author Name Unknown Organization [facility] Address [address] [place] [address] Care Team Providers Care Front Desk Host Name Role Phone Laureano Bennett MD Primary Care Provider [phone] Laureano Bennett MD Unavailable [phone] Reason for Visit * Reason Onset Date Comments MyChart Communication 01/28/2023 Encounter Details Date Type Department Care Team ([facility] Contact Info) Description 01/28/2023 MyC Medical Advice [address] [phone] Laureano Bennett MD [address] [place] [address] MyChart Communication Social History Tobacco Use [...] advise Thank you Megha Berg RN, BSN [place] Triage * Telephone Encounter - Megha Berg RN - 01/31/2023 8:01 AM CDT My chart message sent Megha Berg RN, BSN [facility] Triage documented in this encounter Plan of Treatment Upcoming Encounters Date Type Department Care Team (Late st Contact Info) Description 07/26/2023 8:00 AM SECRETARY Appointment [facility] Medicine [place] [address] [facility] [address] [place] [phone] Rayshawn Nunez MD [address] [place], [place] [address] 07/26/2023 8:30 AM SECRETARY Office Visit [facility] Medicine [place] [address] [facility] [address] [place] [phone] Rayshawn Nunez MD [address] [place], [place] [address] 07/29/2023 8:00 AM SECRETARY Office Visit [address] [phone] Laureano Bennett MD [address] [place] [address] 07/29/2023 11:45 AM SECRETARY Appointment [facility] Medicine [place] [address] [facility] [address] [place] [phone] Jennifer Boyer MD [address] [place] [address] 07/29/2023 12:15 PM SECRETARY Office Visit [facility] Maternal Medicine Center [place] [address] [facility] [address] [place] [address] Jennifer Boyer MD [address] [place] [address] 08/05/2023 8:00 AM SECRETARY Office Visit [address] [address] Laureano Bennett MD [address] [place] [phone] 08/23/[address] [facility] [address] [place] [address] Laureano Bennett MD [address] [place] [phone] documented as of this encounter Visit Diagnoses Not on filedocumented in this encounter Additional Health Concerns Assessment Noted Time PHQ-9 Depression Total Score: 12 023 9:01 AM CDT documented as of this encounter Care Teams Front Desk Host Relationship Specialty Start Date End Date Laureano Bennett MD [address] [place] [address]802 PCP - General Family Medicine 07/07/20 Laureano Bennett MD [address] [place] [address] Assigned PCP 08/14/22 documented as of this encounter
--- OUTSIDE RECORDS SUMMARY | 2023-07-22 16:08 | XMS_ITS | Encounter Summary ---
Author Name Unknown Organization [facility] Address [address] [place] [address] Care Team Providers Care Machine Stonecutter Name Role Phone Laureano Bennett MD Primary Care Provider Laureano Bennett MD Unavailable [phone] Reason for Referral * Diagnostic Imaging Ultrasound (Routine) - Pending Review Specialty Diagnoses / Procedures Referred By Contac t Referred To Contact Radiology. Diagnoses Encounter for supervision of other normal in second trimester Procedures US OB > 14 Weeks Laureano Bennett MD [address] [place] [address] Referral ID Status Reason Start Date Expiration Date V isits Requested Visits Authorized [id number] Pending Review 03/10/2023 03/09/2024 1 1 Reason for Visit * Reason Comments Care Encounter Details Date Type Department Care Team (Late st Contact Info) Description 03/10/2023 8:20 AM CDT Office Visit [address] [phone] Laureano Bennett MD [address] [place] [address] [phone] Encounter for supervision of other normal in [...] MD - 03/10/2023 8:20 AM CDT Call [phone] to schedule ultrasound. documented in this encounter [...] st Contact Info) Description 07/26/2023 8:00 AM FIRE INSPECTOR Appointment [facility] Maternal Medicine [facility] [address] [facility] [address] [place] [phone] Rayshawn Nunez MD [address] [place] [address] 07/26/2023 8:30 AM FIRE INSPECTOR Office Visit [facility] Maternal Medicine [facility] [address] [facility] [address] [place] [address] Rayshawn Nunez MD [address] [place] [address] 07/29/2023 8:00 AM FIRE INSPECTOR Office Visit [address] [place] [address] [place] [address] [place] [phone] 07/29/2023 11:45 AM FIRE INSPECTOR Appointment [facility] Maternal Medicine [facility] [address] [facility] [address] [place] [address] Jennifer Boyer MD [address] [place] [address] 07/29/2023 12:15 PM FIRE INSPECTOR Office Visit [facility] Maternal Medicine [facility] [address] [facility] [address] [place] [address] Jennifer Boyer MD [address] [place], [place] [address] 08/05/2023 8:00 AM FIRE INSPECTOR Office Visit [facility] [address] [place] [phone] Laureano Bennett MD [address] [place] [address] 644362 08/23/2023 Hospital Encounter [facility] [address] [place] [address] Laureano Bennett MD [address] [place] [address] [phone] documented as of this encounter Procedures Procedure Name Priority Date/Time Associated Diagnosis Comments GLUCOSE ALBUMIN OB URINE Routine 03/10/2023 8:19 AM CDT documented in this encounter Results * US OB > 14 Weeks (04/11/2023 4:14 PM CDT) Anatomical Region Laterality Modality Abdomen/Pelvis Ultrasound Narrative 04/11/2023 4:23 PM CDT Table formatting from the original result was not included. [employer] ULTRASOUND - OB > 14 Weeks Complete [...] Lynne Rubi, DO ?? Obstetrics and Gynecology [facility] Laureano Bennett MD [facility] [...] MD LAB - URINE ORDERABL ES LABORATORY [facility] Lab [address] [place] [address] [facility], 1st floor of clinic) [place] [id number] [phone] documented in this encounter Visit Diagnoses Diagnosis Encounter for supervision of other normal in second trimester- Primary Encounter for supervision of other normal in second trimester documented in this encounter Additional Health Concerns Assessment Noted Time PHQ-9 Depression Total Score: 12 01/04/2 023 9:01 AM CDT documented as of this encounter Care Teams Machine Stonecutter Relationship Specialty Start Date End Date Laureano Bennett MD [address] [place] [address] PCP - General Family Medicine 07/07/20 [place] [address] [place] [address] Assigned PCP 08/14/22 documented as of this encounter
--- OUTSIDE RECORDS SUMMARY | 2023-07-22 16:08 | XMS_ITS | Encounter Summary ---
Author Name Unknown Organization [facility] Address [address] [place] [address]. [place] [address] Care Team Providers Care Screen And Cyclone Repairer Name Role Phone Laureano Bennett MD Primary Care Provider [phone] Laureano Bennett MD Unavailable [phone] Encounter Details Date Type Department Care [...] st Contact Info) Description 07/26/2023 8:00 AM CHILDREN'S INSTITUTION ATTENDANT Appointment [facility] Maternal Medicine [place] [address] [address] Rayshawn Nunez MD [address] [place] [address] 07/26/2023 8:30 AM CHILDREN'S INSTITUTION ATTENDANT Office Visit [facility] Medicine [place] [address] [address] Rayshawn Nunez MD [address] [place] [address] 07/29/2023 8:00 AM CHILDREN'S INSTITUTION ATTENDANT Office Visit [address] [phone] [place] [address] [place] [address] 07/29/2023 11:45 AM CHILDREN'S INSTITUTION ATTENDANT Appointment [facility] Maternal Medicine [place] [address] [phone] Jennifer Boyer MD [address] [place], [place] [address] 07/29/2023 12:15 PM CHILDREN'S INSTITUTION ATTENDANT Office Visit [facility] Maternal Medicine [place] [address] [address] Jennifer Boyer MD [address] [place] [address] 08/05/2023 8:00 AM CHILDREN'S INSTITUTION ATTENDANT Office Visit M [address] [phone] Laureano Bennett MD [address] [place] [address] 08/23/2023 Hospital Encounter [facility] [address] [place] [address] Laureano Bennett MD [address] [place] [address] [phone] documented as of this encounter Visit Diagnoses Not on filedocumented in this encounter Additional Health Concerns Assessment Noted Time PHQ-9 Depression Total Score: 12 023 9:01 AM CDT documented as of this encounter Care Teams Screen And Cyclone Repairer Relationship Specialty Start Date End Date Laureano Bennett MD [address] [place] [address] PCP - General Family Medicine 07/07/20 Laureano Bennett MD [address] [place] [address] Assigned PCP 08/14/22 documented as of this encounter
--- OUTSIDE RECORDS SUMMARY | 2023-07-22 16:08 | XMS_ITS | Encounter Summary ---
Author Name Unknown Organization [facility] Address [address] [place] [address] Care Team Providers Care Quality Liaison Name Role Phone Laureano Bennett MD Primary Care Provider [phone] Laureano Bennett MD Unavailable [phone] Reason for Visit * Reason Comments Care Encounter Details Date Type Department Care Team ([facility] st Contact Info) Description 04/08/2023 8:00 AM CDT Office Visit [address] [phone] Laureano Bennett MD [address] [place] [address] [phone] Encounter for supervision of other normal in [...] st Contact Info) Description 07/26/2023 8:00 AM SOCIAL WORK COORDINATOR Appointment [facility] Maternal Medicine [place] [address] [address] [facility] [address] [place] [phone] Rayshawn Nunez MD [address] [place], [place] 6[address] 07/26/2023 8:30 AM SOCIAL WORK COORDINATOR Office Visit [facility] Medicine [place] [address] [phone] Rayshawn Nunez MD [address] [place], [place] [address] 07/29/2023 8:00 AM SOCIAL WORK COORDINATOR Office Visit [address] [phone] Laureano Bennett MD [address] [place] [address] 07/29/2023 11:45 AM SOCIAL WORK COORDINATOR Appointment [facility] Maternal Medicine [place] [address] [address] [facility] [address] [place] [phone] Jennifer Boyer MD [address] [place], [place] [address] 07/29/2023 12:15 PM SOCIAL WORK COORDINATOR Office Visit [facility] Maternal Medicine [place] [address] [address] [facility] [address] [place] [phone] Jennifer Boyer MD [address] [place], [place] [address] 08/05/2023 8:00 AM SOCIAL WORK COORDINATOR Office Visit [facility] [address] [place] [address]. [place] [phone] [place] [address] [place] [address] 147102 08/23/2023 Hospital Encounter [facility] [address] [place] [phone] [place] [address] [place] [address] 109012 documented as of this encounter Procedures Procedure [...] LAB - URINE ORDERABL ES RV LABORATORY [facility] [address] [place] [address]. Lab (no room number, 1st floor of clinic) [place] [address], [facility] [phone] documented in this encounter Visit Diagnoses Diagnosis Encounter for supervision of other normal in second trimester- Primary documented in this encounter Additional Health Concerns Assessment Noted Time PHQ-9 Depression Total Score: 12 07/18/2 023 9:01 AM CDT documented as of this encounter Care Teams Quality Liaison Relationship Specialty Start Date End Date Laureano Bennett MD [address] [place] [address] PCP - General Family Medicine 07/07/20 Laureano Bennett MD [address] [place] [address] Assigned PCP 08/14/22 documented as of this encounter
--- OUTSIDE RECORDS SUMMARY | 2023-07-22 16:08 | XMS_ITS | Encounter Summary ---
Author Name Unknown Organization [facility] Address [address] [place] [address] Care Team Providers Care Reducing Salon Attendant Name Role Phone Laureano Bennett MD Primary Care Provider [phone] Laureano Bennett MD Unavailable [phone] Unavailable [phone] Reason for Visit * Reason Onset Date Comments MyChart Communication 02/20/2023 Encounter Details Date Type Department Care Team ([facility] st Contact Info) Description 02/20/2023 MyC Medical Advice [address] [phone] Laureano Bennett MD [address] [place] [address] MyChart Communication Social History Tobacco Use [...] sent Awaiting reply Megha Berg RN, BSN [facility] Triage documented in this encounter Plan of Treatment Upcoming Encounters Date Type Department Care Team (Late st Contact Info) Description 07/26/2023 8:00 AM COMBUSTION ANALYST Appointment [facility] Maternal Medicine [place] [address] [address] [facility] [address] [place] [phone] Rayshawn Nunez MD [address] [place], [place] [address] 07/26/2023 8:30 AM COMBUSTION ANALYST Office Visit [facility] Maternal Medicine [place] [address] [address] [facility] [address] [place] [phone] Rayshawn Nunez MD [address] [place], [place] 2[address] 07/29/2023 8:00 AM COMBUSTION ANALYST Office Visit [address] [phone] Laureano Bennett MD [address] [place] [address] 07/29/2023 11:45 AM COMBUSTION ANALYST Appointment [facility] Maternal Medicine [place] [address] [address] [facility] [address] [place] [phone] Jennifer Boyer MD [address] [place], [place] [address] 07/29/2023 12:15 PM COMBUSTION ANALYST Office Visit [facility] [place] [address] [place] [phone] Jennifer Boyer MD [address] [place] [address] 08/05/2023 8:00 AM COMBUSTION ANALYST Office Visit [address] [phone] Laureano Bennett MD [address] [place] [address] 447512 08/23/2023 Hospital Encounter [facility] [address] [place] [address] Laureano Bennett MD [address] [place] [address] 535302 documented as of this encounter Visit Diagnoses Not on filedocumented in this encounter Additional Health Concerns Assessment Noted Time PHQ-9 Depression Total Score: 12 023 9:01 AM CDT documented as of this encounter Care Teams Reducing Salon Attendant Relationship Specialty Start Date End Date Laureano Bennett MD [address] [place] [address] PCP - General Family Medicine 07/07/20 Laureano Bennett MD [address] [place] [address] Assigned PCP 08/14/[address] [facility] - [address] [address] Scrubber Machine Tender Dietitian, Registered 06/14/23 documented as of this encounter
--- OUTSIDE RECORDS SUMMARY | 2023-07-22 16:08 | XMS_ITS | Encounter Summary ---
Author Name Unknown Organization [facility] Address [address] [place] [address] Care Team Providers Care Fast Food Manager Name Role Phone Renee Bennett MD Primary Care Provider [phone] Renee Bennett MD Unavailable [phone] Reason for Visit * Reason Comments Care Encounter Details Date Type Department Care Team (Late st Contact Info) Description 05/17/2023 9:20 AM CLOTH SANDER Office Visit [address] [phone] Renee Bennett MD [address] [place] [address] Encounter for supervision of other normal [...] Comments Blood Pressure 118/60 05/17/2023 9:13 AM CLOTH SANDER Pulse 96 05/17/2023 9:13 AM CLOTH SANDER Temperature 36.1 ??C (96.9 ??F) 05/17/2023 9:13 AM CS T Respiratory Rate 16 05/17/2023 9:13 AM CLOTH SANDER Oxygen Saturation 98% 05/17/2023 9:13 AM CLOTH SANDER Inhaled Oxygen Concentration - - Weight 78.5 kg (173 lb) 05/17/2023 9:13 AM CLOTH SANDER Height 174 cm (5' 8.5) 05/17/2023 9:13 AM CLOTH SANDER Body Mass Index 25.92 05/17/2023 9:13 AM CLOTH SANDER documented in this encounter Progress Notes * [...] intake, and treatment affect the concentration of 78-uylkepi-Jlstazc D. Values may decrease during winter months [...] - failed will check 3 hour screen H SANDER documented in this encounter Miscellaneous Notes * Result Encounter Note - Renee Bennett MD - 05/17/2023 9:20 AM CLOTH SANDER Dear Yu, Here is a summary of [...] you very much for trusting me and [facility]. Have a peaceful day. Healthy regards, Prasad Bennett MD H SANDER * Result Encounter Note - Renee Bennett MD - 05/17/2023 9:20 AM CLOTH SANDER Note to Staff: please call the patient to review recommendations of recent result note as the patient did not check their MyChart result note message yet. H SANDER * Addendum Note - Renee Bennett MD - 05/17/2023 9:20 AM CSTAddended by: RENEE BENNETT on: 05/18/2023 11:44 PM Modules accepted: Orders H SANDER documented in this encounter Plan of Treatment Upcoming Encounters Date Type Department Care Team (Late st Contact Info) Description 07/26/2023 8:00 AM CLOTH SANDER Appointment [facility] Medicine [place] [address] [address] [facility] [address] [place] [phone] Rayshawn Nunez MD [address] [place], [place] [address] 07/26/2023 8:30 AM CLOTH SANDER Office Visit [facility] Medicine [place] [address] [address] [facility] [address] [place] [phone] Rayshawn Nunez MD [address] [place] [address] 07/29/2023 8:00 AM CLOTH SANDER Office Visit [address] [phone] [place] [address] [place] [address] 07/29/2023 11:45 AM CLOTH SANDER Appointment [facility] Maternal Medicine [place] [address] [address] [facility] [address] [place] [phone] Jennifer Boyer MD [address] [place] [address] 07/29/2023 12:15 PM CLOTH SANDER Office Visit [facility] M[facility] Medicine [facility] [place] [address] [facility] [address] [place] [address] Jennifer Boyer MD [address] [place] [address] 08/05/2023 8:00 AM CLOTH SANDER Office Visit [address] [phone] Renee Bennett MD [address] [place] [address] 0001[address] 08/23/2023 Hospital Encounter [facility] [address] [place] [phone] Renee Bennett MD [address] [place] [address] [phone] documented as of this encounter Procedures Procedure Name Priority Date/Time Associated Diagnosis Comments GLUCOSE ALBUMIN OB URINE Routine 05/17/2023 1:19 PM CLOTH SANDER Encounter for supervision of other normal in second trimester GLUCOSE TOLERANCE GEST SCREEN 1 HOUR Routine 05/17/2023 10:39 AM CLOTH SANDER Encounter for supervision of other normal in second trimester VITAMIN D DEFICIENCY SCREENING Routine 05/17/2023 10:29 AM CLOTH SANDER Encounter for supervision of other normal in second trimester TSH WITH FREE T4 REFLEX Routine 05/17/2023 10:29 AM CLOTH SANDER Encounter for supervision of other normal in second trimester OB HEMOGLOBIN Routine 05/17/2023 10:29 AM CLOTH SANDER Encounter for supervision of other normal in second trimester FERRITIN Routine 05/17/2023 10:29 AM CLOTH SANDER Encounter for supervision of other normal in second trimester documented in this encounter Results * (ABNORMAL) Glucose and albumin, OB urine (05/17/2023 1:19 PM CLOTH SANDER) Protein Albumin Urine Trace(A) Negative mg/dL 05/17/2023 1:22 PM CLOTH SANDER RV LABORATORY Glucose Urine Negative Negative mg/dL 05/17/2023 1:22 PM CLOTH SANDER RV LABORATORY Urine MID-STREAM URINE SPECIMEN / Unknown Non-blood Collection / Unknown 05/17/2023 1:19 PM CLOTH SANDER 05/17/2023 1:19 PM CLOTH SANDER Renee Bennett MD LAB - URINE ORDERABL ES Performing Organization Address City/[facility]/ZIP Co de Phone Number LABORATORY [facility] [address] [place] [address] S. E. Lab (no room number, 1st floor of clinic) [place] [phone], [facility] [phone] * (ABNORMAL) Glucose tolerance gest screen 1 hour (05/17/2023 10:39 AM CLOTH SANDER) Glu Gest Screen 1hr 50g 142(H) 70 - 129 mg/dL 05/17/2023 10:56 AM CLOTH SANDER RV LABORATORY Blood BLOOD SPECIMEN / Unknown Venipuncture / Unknown 05/17/2023 10:39 AM CLOTH SANDER 05/17/2023 10:39 AM CLOTH SANDER Narrative RV LABORATORY - 05/17/2023 10:56 AM CLOTH SANDER This is a screening test for Gestational Diabetes Mellitus. If results are 130 mg/dL or greater, a Standard 100 gram Gestational ??3 hour Glucose Tolerance should be performed. Renee Bennett MD LAB - BLOOD ORDERABL ES Performing Organization Address City/[facility]/ZIP Co de Phone Number [address] Lab (no room number, 1st floor of clinic) [place] [address], [facility] [phone] * Ferritin (05/17/2023 10:29 AM CLOTH SANDER) Ferritin 17 6 - 175 ng/mL 05/17/2023 8:27 PM CLOTH SANDER [facility] LABORATORY Blood BLOOD SPECIMEN / Unknown Venipuncture / Unknown 05/17/2023 10:29 AM CLOTH SANDER 05/17/2023 10:29 AM CLOTH SANDER Renee Bennett MD LAB - BLOOD ORDERABL ES UU LABORATORY [facility] [address] [facility], [address] [place] [address], [facility] [phone] * OB hemoglobin (05/17/2023 10:29 AM CLOTH SANDER) Hemoglobin 12.2 11.7 - 15.7 g/dL 05/17/2023 10:39 AM CLOTH SANDER RV LABORATORY Blood BLOOD SPECIMEN / Unknown Venipuncture / Unknown 05/17/2023 10:29 AM CLOTH SANDER 05/17/2023 10:29 AM CLOTH SANDER Renee Bennett MD LAB - BLOOD ORDERABL ES RV LABORATORY [facility] [address] [facility] [address] . Lab (no room number, 1st floor of clinic) [place] [address], [facility] [phone] * TSH with free T4 reflex (05/17/2023 10:29 AM CLOTH SANDER) TSH 1.00 0.30 - 4.20 uIU/mL 05/17/2023 8:59 PM CLOTH SANDER [facility] LAB[facility]AT[facility] Blood BLOOD SPECIMEN / Unknown Venipuncture / Unknown 05/17/2023 10:29 AM CLOTH SANDER 05/17/2023 10:29 AM CLOTH SANDER Renee Bennett MD LAB - BLOOD ORDERABL ES Performing Organization Address [facility]/ZIP Co de Phone Number U LABORATORY [facility] [address] [facility], [address] [address], [facility] [phone] * Vitamin D Deficiency (05/17/2023 10:29 AM CLOTH SANDER) Vitamin D, Total (25-Hydroxy) 45 20 - 50 ng/mL 05/17/2023 8:59 PM CLOTH SANDER [facility] LABORATORY Comment:optimum levels Blood BLOOD SPECIMEN / Unknown Venipuncture / Unknown 05/17/2023 10:29 AM CLOTH SANDER 05/17/2023 10:29 AM CLOTH SANDER Narrative [facility] LABORATORY - 05/17/2023 8:59 PM CLOTH SANDER Season, race, dietary intake, and treatment affect the concentration of 44-qnfbzyg-Zafdelu D. Values may decrease during winter months and increase during summer months. Vitamin D determination is routinely performed by an immunoassay specific for 25 hydroxyvitamin D3. ??If an individual is on vitamin D2(ergocalciferol) supplementation, please specify 25 [place] vitamin D2 and D3 level determination by LCMSMS test VITD23. Renee Bennett MD LAB - BLOOD ORDERABL ES Performing Organization Address [facility] Co de Phone Number U LABORATORY [facility] [address] [facility], [address] [address], [facility] [phone] documented in this encounter Visit Diagnoses Diagnosis Encounter for supervision of other normal in second trimester- Primary Elevated glucose Other abnormal glucose documented in this encounter Additional Health Concerns Assessment Noted Time PHQ-9 Depression Total Score: 0 05/17/20 23 9:06 AM CLOTH SANDER documented as of this encounter Care Teams Fast Food Manager Relationship Specialty Start Date End Date Renee Bennett MD [address] [place] [address] [phone] PCP - General Family Medicine 07/07/20 Renee Bennett MD [address] [place] [address] Assigned PCP 08/14/22 documented as of this encounter
--- OUTSIDE RECORDS SUMMARY | 2023-07-22 16:08 | XMS_ITS | Encounter Summary ---
Author Name Unknown Organization [place] Address [address] [place] [address]. [place] [address] Care Team Providers Care Tufter Operator Name Role Phone Laureano Bennett MD Primary Care Provider [phone] Laureano Bennett MD Unavailable [phone] Encounter Details Date Type Department Care [...] st Contact Info) Description 07/26/2023 8:00 AM EARLY CHILDHOOD SPECIAL EDUCATOR Appointment [facility] Maternal Medicine [place] [address] [address] [employer] [facility] [address] [place] [phone] Rayshawn Nunez MD [address] [place], [place] [address] 07/26/2023 8:30 AM EARLY CHILDHOOD SPECIAL EDUCATOR Office Visit [facility] Maternal Medicine [place] [address] [address] [employer] [address] [place] [phone] Rayshawn Nunez MD [address] [place], [place] [phone] 07/29/2023 8:00 AM EARLY CHILDHOOD SPECIAL EDUCATOR Office Visit [address] [place] [phone] Laureano Bennett MD [address] [place] [address] 07/29/2023 11:45 AM EARLY CHILDHOOD SPECIAL EDUCATOR Appointment [facility] Maternal Medicine [place] [address] [address] [employer] [address] [place] [phone] Jennifer Boyer MD [address] [place], [place] [address] 07/29/2023 12:15 PM EARLY CHILDHOOD SPECIAL EDUCATOR Office Visit [facility] Maternal Medicine Center [place] [address] [facility] [address] [place] [phone] Jennifer Boyer MD [address] [facility] [address] [place] [address] 08/05/2023 8:00 AM EARLY CHILDHOOD SPECIAL EDUCATOR Office Visit [address] [phone] Laureano Bennett MD [address] [place] [address] 178262 08/23/2023 Hospital Encounter [facility] [address] [place] [phone] Laureano Bennett MD [address] [place] [address] documented as of this encounter Visit Diagnoses Not on filedocumented in this encounter Additional Health Concerns Assessment Noted Time PHQ-9 Depression Total Score: 12 023 9:01 AM CDT documented as of this encounter Care Teams Tufter Operator Relationship Specialty Start Date End Date Laureano Bennett MD [address] [place] [address] PCP - General Family Medicine 07/07/20 Laureano Bennett MD [address] [place] [address] Assigned PCP 08/14/22 documented as of this encounter
--- OUTSIDE RECORDS SUMMARY | 2023-07-22 16:08 | XMS_ITS | Encounter Summary ---
Author Name Unknown Organization [facility] Address [address] [place] [address] Care Team Providers Care Belt Builder Helper Name Role Phone Laureano Bennett MD Primary Care Provider Laureano Bennett MD Unavailable [phone] Reason for Visit * Diagnostic Imaging Ultrasound (Routine) - Pending Review Specialty Diagnoses / Procedures Referred By Contac t Referred To Contact Radiology. Diagnoses Encounter for supervision of other normal in second trimester Procedures US OB > 14 Weeks Laureano Bennett MD [address] [place] [address] Referral ID Status Reason Start Date Expiration Date V isits Requested Visits Authorized [id number] Pending Review 03/10/2023 03/09/2024 1 1 Encounter Details Date Type Department Care Team (Late st Contact Info) Description 04/11/2023 2:40 PM CDT Ancillary Procedure [address] [phone] Laureano Bennett MD [address] [place], [place] [phone] Encounter for supervision of other normal in [...] very much for trusting me and [facility]. Have a peaceful day. Healthy regards, Prasad Bennett MD documented in this encounter Plan of Treatment Upcoming Encounters Date Type Department Care Team (Late st Contact Info) Description 07/26/2023 8:00 AM JORDAN WORKER Appointment [facility] Maternal Medicine Center [place] [address] [facility] [address] [place] [address] Rayshawn Nunez MD [address] [place] [address] 07/26/2023 8:30 AM JORDAN WORKER Office Visit [facility] Maternal Medicine [place] [address] [place] [address] Rayshawn Nunez MD [address] [place] [address] 07/29/2023 8:00 AM JORDAN WORKER Office Visit [address] [phone] Laureano Bennett MD [address] [place] [address] 07/29/2023 11:45 AM JORDAN WORKER Appointment [facility] Maternal Medicine [place] [address] [place] [phone] Jennifer Boyer MD [address] [place] [address] 07/29/2023 12:15 PM JORDAN WORKER Office Visit [facility] Maternal Medicine [place] [address] [place] [phone] Jennifer Boyer MD [address] [place] [address] 08/05/2023 8:00 AM JORDAN WORKER Office Visit [address] [phone] Laureano Bennett MD [address] [place] [address] [phone] 08/23/2023 Hospital Encounter [facility] [address] [place] [phone] Laureano Bennett MD [address] [place] [address] documented as of this encounter Procedures Procedure [...] from the original result was not included. [facility] ULTRASOUND - OB > 14 Weeks Complete [...] Lynne Rubi, DO ?? Obstetrics and Gynecology [facility] Laureano Bennett MD [facility] ORDERABLES documented in this encounter Visit Diagnoses Diagnosis Encounter for supervision of other normal in second trimester documented in this encounter Additional Health Concerns Assessment Noted Time PHQ-9 Depression Total Score: 12 023 9:01 AM CDT documented as of this encounter Care Teams Belt Builder Helper Relationship Specialty Start Date End Date Laureano Bennett MD [address] [place] [address] PCP - General Family Medicine 07/07/20 Laureano Bennett MD [address] [place] [address] Assigned PCP 08/14/22 documented as of this encounter
--- OUTSIDE RECORDS SUMMARY | 2023-07-22 16:09 | XMS_ITS | Encounter Summary ---
Author Name Unknown Organization [place] Address [address] [place] [address] Care Team Providers Care Change Room Attendant Name Role Phone Laureano Bennett MD Primary Care Provider [phone] Laureano Bennett MD Unavailable [phone] Reason for Visit * Reason Comments Care Psoriasis Scalp Encounter Details Date Type Department Care Team ([facility] st Contact Info) Description 01/04/2023 9:20 AM CDT Office Visit [address] [phone] Laureano Bennett MD [address] [place] [address] test positive (Primary Dx); Hyperemesis; Dermatitis [...] 12 weeks gestation. - HCG Qual, Urine ([id number]) Hyperemesis Symptoms present and can try below [...] (around 02/04/2023) for visit. Prasad Bennett MD [facility] [address] [place] [address] dondeEsta™.Phigital Office: [phone] Joi Nicholas is a 27 year old, [...] Urine Negative Negative mg/dL HCG Qual, Urine ([id number]) Status: Abnormal Result Value Ref Range hCG [...] you very much for trusting me and [facility]. Have a peaceful day. Healthy regards, Prasad Bennett MD documented in this encounter Plan of Treatment Upcoming Encounters Date Type Department Care Team (Late st Contact Info) Description 07/26/2023 8:00 AM CASE MANAGEMENT DIRECTOR Appointment [facility] Medicine [facility] [address] [facility] [address] [place] [phone] Rayshawn Nunez MD [address] [place], [place] [phone] 07/26/2023 8:30 AM CASE MANAGEMENT DIRECTOR Office Visit [facility] Medicine [facility] [address] [facility] [address] [place] [phone] Rayshawn Nunez MD [address] [place], [place] [phone] 07/29/2023 8:00 AM CASE MANAGEMENT DIRECTOR Office Visit [address] [place] [phone] Laureano Bennett MD [address] [place] [address] 07/29/2023 11:45 AM CASE MANAGEMENT DIRECTOR Appointment [facility] Maternal Medicine [facility] [address] [facility] [address] [place] [address] Jennifer Boyer MD [address] [place] [address] 07/29/2023 12:15 PM CASE MANAGEMENT DIRECTOR Office Visit [facility] Maternal Medicine [facility] [address] [facility] [address] [place] [address] Jennifer Boyer MD [address] [place] [address] 08/05/2023 8:00 AM CASE MANAGEMENT DIRECTOR Office Visit [address] [place] [address] Laureano Bennett MD [address] [place] [address] 08/23/2023 Hospital Encounter [facility] [address] [place] [address] Laureano Bennett MD [address] [place] [address] 456822 documented as of this encounter Procedures Procedure Name Priority Date/Time Associated Diagnosis Comments GLUCOSE ALBUMIN OB URINE Routine 01/04/2023 9:30 AM CDT HCG QUALITATIVE URINE Add-On 01/04/2023 9:30 AM CDT test positive documented in this encounter Results * (ABNORMAL) HCG Qual, Urine ([id number]) (01/04/2023 9:30 AM CDT) hCG Urine Qualitative Positive( A) Negative CARLA 01/04/2023 10:31 AM CDT [facility] Comment:This test is for scr eening purposes. Results should be interpreted along with the clinical picture. Confirmation testing is available if warranted by ordering [id number], HCG Quantitative . Urine MID-STREAM URINE SPECIMEN / Unknown Non-blood Collection / Unknown 01/04/2023 9:30 AM CDT 01/04/2023 9:30 AM CDT Laureano Bennett MD LAB - URINE ORDERABL ES Performing Organization Address City/[facility]/ZIP Co de Phone Number LABORATORY [facility] [address] [place] [address] S. E. Lab (no room number, 1st floor of [facility]) [place] [address], [facility] [phone] * (ABNORMAL) Glucose and albumin, OB urine (01/04/2023 9:30 AM CDT) Protein Albumin Urine 100(A) Negative mg/dL 01/04/2023 9:43 AM CDT [facility] Glucose Urine Negative Negative mg/dL 01/04/2023 9:43 AM CDT [facility] Urine MID-STREAM URINE SPECIMEN / Unknown Non-blood Collection / Unknown 01/04/2023 9:30 AM CDT 01/04/2023 9:30 AM CDT Laureano Bennett MD LAB - URINE ORDERABL ES Performing Organization Address City/[facility]/ZIP Co de Phone Number LABORATORY [facility] [address] [place] [address] S. E. Lab (no room number, 1st floor of clinic) [place] [address], [facility] [place] [phone] documented in this encounter Visit Diagnoses Diagnosis test positive- Primary examination or test, positive result Hyperemesis Persistent vomiting Dermatitis Contact dermatitis and other eczema, due to unspecified cause documented in this encounter Additional Health Concerns Assessment Noted Time PHQ-9 Depression Total Score: 12 01/04/2 023 9:01 AM CDT documented as of this encounter Care Teams Change Room Attendant Relationship Specialty Start Date End Date Laureano Bennett MD [address] [place] [address] PCP - General Family Medicine 07/07/20 Laureano Bennett MD [address] [place] [address] Assigned PCP 08/14/22 documented as of this encounter
--- OUTSIDE RECORDS SUMMARY | 2023-07-22 16:09 | XMS_ITS | Encounter Summary ---
Author Name Unknown Organization [place] Address [address] [place] [address] Care Team Providers Care Nurse First Assist Name Role Phone Laureano Bennett MD Primary Care Provider [phone] Laureano Bennett MD Unavailable [phone] Reason for Referral * Diagnostic Imaging Ultrasound (Routine) - Pending Review Specialty Diagnoses / Procedures Referred By Contac t Referred To Contact Radiology. Diagnoses test positive Procedures US OB < 14 Weeks Single Transabdominal Laureano Bennett MD [address] [place] [address] Referral ID Status Reason Start Date Expiration Date V isits Requested Visits Authorized [id number] Pending Review 12/23/2022 12/23/2023 1 1 Encounter Details Date Type Department Care Team (Late st Contact Info) Description 12/22/2022 MyC Medical Advice [address] [phone] Laureano Bennett MD [address] [place] [address] test positive (Primary Dx) Social History [...] st Contact Info) Description 07/26/2023 8:00 AM CEO & FOUNDER Appointment [facility] Maternal Medicine [facility] [address] [facility] [address] [place] [address] Rayshawn Nunez MD [address] [place] [address] 07/26/2023 8:30 AM CEO & FOUNDER Office Visit [facility] Maternal Medicine [facility] [address] [facility] [address] [place] [address] Rayshawn Nunez MD [address] [place] [address] 07/29/2023 8:00 AM CEO & FOUNDER Office Visit [address] [place] [address] Laureano Bennett MD [address] [place] [address] 870242 07/29/2023 11:45 AM CEO & FOUNDER Appointment [facility] Maternal Medicine [facility] [address] [facility] [address] [place] [address] Jennifer Boyer MD [address] [place] [address] 07/29/2023 12:15 PM CEO & FOUNDER Office Visit [facility] Maternal Medicine [facility] [address] [facility] [address] [place] [address] Jennifer Boyer MD [address] [place] [address] 08/05/2023 8:00 AM CEO & FOUNDER Office Visit [address] [address] Laureano Bennett MD [address] [place] [address] 721572 08/23/2023 Hospital Encounter [facility] [address] [place] [address] Laureano Bennett MD [address] [place] [address] 218302 documented as of this encounter Results * [...] placental site. YULISSA SKAGGS MD SYSTEM ID: [id number] Narrative 01/06/2023 7:55 AM CDT US OB [...] placental site. YULISSA SKAGGS MD SYSTEM ID: [id number] Laureano Bennett MD [facility] US ORDERABLES documented in this encounter Visit Diagnoses Diagnosis test positive- Primary examination or test, positive result test positive examination or test, positive result documented in this encounter Care Teams Nurse First Assist Relationship Specialty [place] [address] [place] [address] PCP - General Family Medicine 07/07/20 [place] [address] [place] [address] Assigned PCP 08/14/22 documented as of this encounter
--- OUTSIDE RECORDS SUMMARY | 2023-07-22 16:09 | XMS_ITS | Encounter Summary ---
Author Name Unknown Organization [place] Address [address] [place] [address] Care Team Providers Care Registration Scheduling Specialist Name Role Phone Laureano Bennett MD Primary Care Provider [phone] Laureano Bennett MD Unavailable [phone] Reason for Visit * Reason Onset Date Comments Medication Request 01/14/2023 Request quant ity override Encounter Details Date Type Department Care Team ([facility] st Contact Info) Description 01/14/[address] [phone] Laureano Bennett MD [address] [place] [address] Medication Request (Request quantity override ) [...] tabs aren't enough. Patient would prefer a MENA PRESTIGE message for updates. documented in this encounter Plan of Treatment Upcoming Encounters Date Type Department Care Team (Late st Contact Info) Description 07/26/2023 8:00 AM DINKEY LOCOMOTIVE ENGINEER Appointment [facility] Medicine [place] [address] [facility] [address] [place] [phone] Rayshawn Nunez MD [address] [place] [address] 07/26/2023 8:30 AM DINKEY LOCOMOTIVE ENGINEER Office Visit [facility] Medicine [place] [address] [facility] [address] [place] [phone] Rayshawn Nunez MD [address] [place] [address] 07/29/2023 8:00 AM DINKEY LOCOMOTIVE ENGINEER Office Visit [address] [place] [phone] Laureano Bennett MD [address] [place] [address] 0860[address] 07/29/2023 11:45 AM DINKEY LOCOMOTIVE ENGINEER Appointment [facility] Medicine [place] [address] [facility] [address] [place] [phone] Jennifer Boyer MD [address] [place] [address] 07/29/2023 12:15 PM DINKEY LOCOMOTIVE ENGINEER Office Visit [facility] [place] [address] [facility] [address] [place] [address] Jennifer Boyer MD [address] [place] [address] 08/05/2023 8:00 AM DINKEY LOCOMOTIVE ENGINEER Office Visit [address] [phone] Laureano Bennett MD [address] [place] [address] 174032 08/23/2023 Hospital Encounter [facility] [address] [place] [address] Laureano Bennett MD [address] [place] [address] [phone] documented as of this encounter Visit Diagnoses Diagnosis Hyperemesis- Primary Persistent vomiting documented in this encounter Additional Health Concerns Assessment Noted Time PHQ-9 Depression Total Score: 12 023 9:01 AM CDT documented as of this encounter Care Teams Registration Scheduling Specialist Relationship Specialty Start Date End Date Laureano Bennett MD [address] [place] [address] PCP - General Family Medicine 07/07/20 Laureano Bennett MD [address] [place] [address] Assigned PCP 08/14/22 documented as of this encounter
--- OUTSIDE RECORDS SUMMARY | 2023-07-22 16:09 | XMS_ITS | Clinical Summary ---
Author Name Unknown Organization [employer] [facility] Address [place], [place] [address] Care Team Providers Care Sales Development Consultant Name Role Phone Donna Rae LOCO Primary Care Provider [phone] Allergies No known active allergies Medications Medication Sig Dispensed Refills Start Date End Date Status Dbcxzpdt-Ao-Dtg-Fe-FA ( VITAMIN) tab tablet Take 1 tablet by mouth once daily. 0 06/01/2018 Active Ftbeg-4-YAY-EPA-Fish Oil (FISH OIL) 1,000 mg (120 mg-180 mg) cap Take by mouth. 0 06/01/2018 Active Active Problems Patient Care Coordination No te Formatting of this note migh t be different from the original. Transfer of care at 21.3 weeks from [facility] transfer records Problem Noted Date Diagnosed Date [...] oz) M Vag N Candis ng Delivery Location:[place], [place] Comments:SROM, pit aug mentation, 7 hours [...] age to complete this topic Care Teams Sales Development Consultant Relationship Specialty Start Date End Date Donna Rae CNM [address] [place] [address] PCP - General Certified Nurse Personal Attendant 10/29/19
--- OUTSIDE RECORDS SUMMARY | 2023-07-22 16:09 | XMS_ITS | Encounter Summary ---
Author Name Unknown Organization [place] Address [address] [place] [address] Care Team Providers Care Terminal Press Operator Name Role Phone Laureano Bennett MD Primary Care Provider [phone] Laureano Bennett MD Unavailable [phone] Unavailable [phone] Encounter Details Date Type Department Care Team (Late Contact Info) Description 01/14/2023 MyC Medical Advice [address] [phone] Laureano Bennett MD [address] [place] [address] Social History Tobacco Use Types Packs/Day [...] Department Care Team (Late Contact Info) Description 07/26/2023 8:00 AM LOADING AND UNLOADING SUPERVISOR Appointment [facility] Maternal Medicine [place] [address] [facility] [address] [place] [address] Rayshawn Nunez MD [address] [place] [address] 07/26/2023 8:30 AM LOADING AND UNLOADING SUPERVISOR Office Visit [facility] Maternal Medicine [place] [address] [facility] [address] [place] [address] Rayshawn Nunez MD [address] [place] [address] 07/29/2023 8:00 AM LOADING AND UNLOADING SUPERVISOR Office Visit [address] [address] Laureano Bennett MD [address] [place] [address] 07/29/2023 11:45 AM LOADING AND UNLOADING SUPERVISOR Appointment [facility] Maternal Medicine [place] [address] [facility] [address] [place] [address] Jennifer Boyer MD [address] [place] [address] 07/29/2023 12:15 PM LOADING AND UNLOADING SUPERVISOR Office Visit [facility] Maternal Medicine [place] [address] [facility] [address] [place] [phone] Jennifer Boyer MD [address] [place] [address] 08/05/2023 8:00 AM LOADING AND UNLOADING SUPERVISOR Office Visit [address] [address] [place] [address] [place] [address] 08/23/2023 Hospital Encounter [facility] [address] [place] [address] Laureano Bennett MD [address] [place] [address] [phone] documented as of this encounter Visit Diagnoses Not on filedocumented in this encounter Additional Health Concerns Assessment Noted Time PHQ-9 Depression Total Score: 12 023 9:01 AM CDT documented as of this encounter Care Teams Terminal Press Operator Relationship Specialty Start Date End Date Laureano Bennett MD [address] [place] [address] [phone] PCP - General Family Medicine 07/07/20 Laureano Bennett MD [address] [place] [address] 780492 Assigned PCP 08/14/[address] [place] [address] [place] [address] Vest Baster Dietitian, Registered 06/14/23 documented as of this encounter
--- OUTSIDE RECORDS SUMMARY | 2023-07-22 16:09 | XMS_ITS | Encounter Summary ---
Author Name Unknown [facility] Address [address] [place] [address] Care Team Providers Care Handicapped Teacher Name Role Phone Laureano Bennett MD Primary Care Provider [phone] Laureano Bennett MD Unavailable [phone] Laureano Bennett MD Unavailable [phone] Unavailable [phone] Encounter Details Date Type Department Care Team (Late st Contact Info) Description 09/19/2020 MyC Medical Advice [address] [address] Rikki Auguste RN Social History [...] (Late Contact Info) Description 07/26/2023 8:00 AM SERVICE LIAISON REPRESENTATIVE Appointment [facility] Maternal Medicine [facility] [address] [place] [address] Rayshawn Nunez MD [address] [address] [place] [address] 07/26/2023 8:30 AM SERVICE LIAISON REPRESENTATIVE Office Visit [facility] Maternal Medicine [facility] [address] [facility] [address] [place] [address] Rayshawn Nunez MD [address] [place] [address] 07/29/2023 8:00 AM SERVICE LIAISON REPRESENTATIVE Office Visit [address] [phone] Laureano Bennett MD [address] [place] [address]39[address] 07/29/2023 11:45 AM SERVICE LIAISON REPRESENTATIVE Appointment [facility] Maternal Medicine [place] [address] [phone] Jennifer Boyer MD [address] [place] [address] 07/29/2023 12:15 PM SERVICE LIAISON REPRESENTATIVE Office Visit [facility] Maternal Medicine [facility] [address] [phone] Jennifer Boyer MD [address] [place] [address] 08/05/2023 8:00 AM SERVICE LIAISON REPRESENTATIVE Office Visit [address] [address] Laureano Bennett MD [address] [place] [address] [phone] 08/23/2023 Hospital Encounter [facility] [address] [place] [address] Laureano Bennett MD [address] [place] [address] documented as of this encounter Visit Diagnoses Not on filedocumented in this encounter Care Teams Handicapped Teacher Relationship Specialty Start Date End Date Laureano Bennett MD [address] [place] [address] PCP - General Family Medicine 07/07/20 Laureano Bennett MD [address] [place] [address] Assigned PCP 06/12/20 06/04/22 Laureano Bennett MD [address] [place] [address] Assigned PCP 08/14/[address] [place] [address] [place] [address] Supervisor Drawing Dietitian, Registered 06/14/23 documented as of this encounter
--- OUTSIDE RECORDS SUMMARY | 2023-07-22 16:09 | XMS_ITS | Encounter Summary ---
Author Name Unknown [facility] Address [address] [place] [address] Care Team Providers Care Blacktop Spreader Name Role Phone Laureano Benentt MD Primary Care Provider [phone] Laureano Bennett MD Unavailable [phone] Encounter Details Date Type Department Care Team (Late st Contact Info) Description 01/05/2023 MyC Medical Advice [address] [phone] Laureano Bennett MD [address] [place] [address] Social History Tobacco Use Types Packs/Day [...] st Contact Info) Description 07/26/2023 8:00 AM INSIDE SALES COORDINATOR Appointment [facility] M[facility] Medicine [facility] [place] [address] [place] [address] Rayshawn Nunez MD [address] [place] [address] 07/26/2023 8:30 AM INSIDE SALES COORDINATOR Office Visit [facility] Maternal Medicine [place] [address] [facility] [address] [place] [phone] Rayshawn Nunez MD [address] [place] [address] 07/29/2023 8:00 AM INSIDE SALES COORDINATOR Office Visit [address] [phone] Laureano Bennett MD [address] [place] [address] 07/29/2023 11:45 AM INSIDE SALES COORDINATOR Appointment [facility] Maternal Medicine [place] [address] [place] [address] Jennifer Boyer MD [address] [place] [address] 07/29/2023 12:15 PM INSIDE SALES COORDINATOR Office Visit [facility] Maternal Medicine [place] [address] [facility] [address] [place] [address] Jennifer Boyer MD [address] [place] [address] 08/05/2023 8:00 AM INSIDE SALES COORDINATOR Office Visit [address] [phone] [place] [address] [place] [address] 08/23/[address] [facility] [address] [place] [address] Laureano Bennett MD [address] [place], [place] 553162 documented as of this encounter Visit Diagnoses Not on filedocumented in this encounter Additional Health Concerns Assessment Noted Time PHQ-9 Depression Total Score: 12 023 9:01 AM CDT documented as of this encounter Care Teams Blacktop Spreader Relationship Specialty Start Date End Date Laureano Bennett MD [address] [place] [address] PCP - General Family Medicine 07/07/20 Laureano Bennett MD [address] [place] [address] Assigned PCP 08/14/22 documented as of this encounter
--- OUTSIDE RECORDS SUMMARY | 2023-07-22 16:09 | XMS_ITS | Encounter Summary ---
Author Name Unknown Organization [place] Address [address] [place] [address] Care Team Providers Care Velvet Steamer Name Role Phone Laureano Bennett MD Primary Care Provider [phone] Laureano Bennett MD Unavailable [phone] Encounter Details Date Type Department Care [...] st Contact Info) Description 07/26/2023 8:00 AM DRIVEMATIC MACHINE OPERATOR Appointment [facility] [place] [address] [facility] [facility] [address] [place] [address] Rayshawn Nunez MD [address] [place] [address] 07/26/2023 8:30 AM DRIVEMATIC MACHINE OPERATOR Office Visit [facility] Maternal Medicine [facility] [address] [facility] [address] [place] [address] Rayshawn Nunez MD [address] [place] [address] 07/29/2023 8:00 AM DRIVEMATIC MACHINE OPERATOR Office Visit [address] [phone] Laureano Bennett MD [address] [place] [address] [phone] 07/29/2023 11:45 AM DRIVEMATIC MACHINE OPERATOR Appointment [facility] Maternal Medicine [facility] [address] [facility] [address] [place] [address] Jennifer Boyer MD [address] [place] [address] 07/29/2023 12:15 PM DRIVEMATIC MACHINE OPERATOR Office Visit [facility] Maternal Medicine [facility] [address] [facility] [address] [place] [address] Jennifer Boyer MD [address] [place] [address] 08/05/2023 8:00 AM DRIVEMATIC MACHINE OPERATOR Office Visit [address] [phone] Laureano Bennett MD [address] [place] [address] 08/23/2023 Hospital Encounter [facility] [address] [place] [address] [place] [address] [place] [address] 354062 documented as of this encounter Visit Diagnoses Not on filedocumented in this encounter Additional Health Concerns Assessment Noted Time PHQ-9 Depression Total Score: 12 023 9:01 AM CDT documented as of this encounter Care Teams Velvet Steamer Relationship Specialty Start Date End Date Laureano Bennett MD [address] [place] [address] PCP - General Family Medicine 07/07/20 Laureano Bennett MD [address] [place] [address] Assigned PCP 08/14/22 documented as of this encounter
--- OUTSIDE RECORDS SUMMARY | 2023-07-22 16:09 | XMS_ITS | Encounter Summary ---
Author Name Unknown [facility] Address [address] [place] [address] Care Team Providers Care Prison Psychiatrist Name Role Phone Laureano Bennett MD Primary Care Provider Laureano Bennett MD Unavailable [phone] Reason for Visit * Reason Onset Date Comments No Show Anxiety No Show 09/20/2022 Encounter Details Date Type Department Care Team ([facility] Contact Info) Description 09/20/2022 11:00 AM CDT Office Visit [address] [phone] Yaquelin Fulton, TAP PULLER [address] [address] No-show for appointment (Primary Dx) [...] Upcoming Encounters Date Type Department Care Team ([facility] Contact Info) Description 07/26/2023 8:00 AM PRINTING BINDERY ASSISTANT Appointment [facility] Maternal Medicine [place] [address] [place] [address] Rayshawn Nunez MD [address] [place] [address] 07/26/2023 8:30 AM PRINTING BINDERY ASSISTANT Office Visit [facility] Medicine [place] [address] [facility] [address] [place] [address] Rayshawn Nunez MD [address] [place] [address] 07/29/2023 8:00 AM PRINTING BINDERY ASSISTANT Office Visit [address] [phone] Laureano Bennett MD [address] [place] [address] 826552 07/29/2023 11:45 AM PRINTING BINDERY ASSISTANT Appointment [facility] Maternal Medicine [place] [address] [facility] [address] [place] [address] Jennifer Boyer MD [address] [place] [address] 07/29/2023 12:15 PM PRINTING BINDERY ASSISTANT Office Visit [facility] M[facility] Medicine [place] [address] [address] [facility] [address] [place] [address] Jennifer Boyer MD [address] [place] [address] 08/05/2023 8:00 AM PRINTING BINDERY ASSISTANT Office Visit [address] [phone] [place] [address] [place] [address] 014172 08/23/[address] [facility] [address] [place] [address] Laureano Bennett MD [address] [place] [address] 876742 documented as of this encounter Visit Diagnoses Diagnosis No-show for appointment- Primary documented in this encounter Care Teams Prison Psychiatrist Relationship Specialty Start Date End Date Laureano Bennett MD [address] [place] [address] [id number] PCP - General Family Medicine 07/07/20 Laureano Bennett MD [address] [place] [address] Assigned PCP 08/14/22 documented as of this encounter
--- OUTSIDE RECORDS SUMMARY | 2023-07-22 16:09 | XMS_ITS | Encounter Summary ---
Author Name Unknown Organization [place] Address [address] [place] [address] Care Team Providers Care High School Combination Teacher Name Role Phone Laureano Bennett MD Primary Care Provider [phone] Laureano Bennett MD Unavailable [phone] Unavailable [phone] Reason for Visit * Reason Onset Date Comments Prior Auth - Medication 01/10/2023 Ondanset topher 4MG Dispersible Tablets-pa approved Encounter Details Date Type Department Care Team (Late st Contact Info) Description 01/10/[address] [address] Laureano Bennett MD [address] [place] [address] Prior Auth - Medication (Ondansetron 4MG [...] Date: 01/14/2024 Approved Dose/Quantity: 90/30 Reference #: [id number] Insurance Company: [employer] - Expected CoPay: CoPay Card Available: Financial Assistance Needed: Which Pharmacy is filling the prescription: [facility][id number] - [place] [employer], [employer] - [address] AT [place] [address] Pharmacy Notified: Yes Patient Notified: Yes * Telephone Encounter - Sherri Houston - 01/13/2023 10:27 AM CDT Images from the original note were not included. PA Initiation Medication: ONDANSETRON 4 MG PO TBDP Insurance Company: [employer] - Pharmacy Filling the Rx: [facility] #[id number] [facility], [place] - [address] [place] [address] Filling Pharmacy Filling Pharmacy Fax: Start Date: [...] different than what is on RX) Name: [facility] Phone: [phone] * Telephone Encounter - Lucia Samano - 01/12/2023 12:51 PM CDT Received a Formulary Exception form. Now in Yellow PA folder at front office coordinator for Christiano * Telephone Encounter - Hemant Carias - 01/10/2023 10:02 AM CDT Prior Authorization Retail Medication Request Medication/Dose: Saji Prior Authorization for Ondansetron 4MG Dispersible Tablets ICD code (if different than what is on RX): Previously Tried and Failed: Rationale: Insurance Name: Insurance ID: [id number] Pharmacy Information (if different than what is on RX) Name: [facility] Phone: [phone] * Telephone Encounter - Jaycee Padron - 01/10/2023 8:52 AM CDT Forms/Letter Request Type of form/letter: Saji Prior Authorization for Ondansetron 4MG Dispersible Tablets Have you been seen for this request: N/A Do we have the form/letter: Yes: [employer] Lab[employer] Yellow PA Folder Who is the form from? [facility] (if other please explain) Where did/will the form come from? form was faxed in documented in this encounter Plan of Treatment Upcoming Encounters Date Type Department Care Team (Late st Contact Info) Description 07/26/2023 8:00 AM MEDICAL BILLING SUPERVISOR Appointment [facility] Medicine [place] [address] [address] [facility] [address] [place] [address] Rayshawn Nunez MD [address] [place] [address] 07/26/2023 8:30 AM MEDICAL BILLING SUPERVISOR Office Visit [facility] Medicine [place] [address] [address] Rayshawn Nunez MD [address] [place] [address] 07/29/2023 8:00 AM MEDICAL BILLING SUPERVISOR Office Visit [address] [address] Laureano Bennett MD [address] [place] [address] 07/29/2023 11:45 AM MEDICAL BILLING SUPERVISOR Appointment [facility] Medicine [place] [address] [address] [facility] [address] [place] [address] Jennifer Boyer MD [address] [place], [place] [address] 07/29/2023 12:15 PM MEDICAL BILLING SUPERVISOR Office Visit [facility] Medicine [place] [address] [address] [facility] [address] [place] [address] Jennifer Boyer MD [address] [place] [address] 08/05/2023 8:00 AM MEDICAL BILLING SUPERVISOR Office Visit [address] [phone] Laureano Bennett MD [address] [place] [address] 580[address] 08/23/2023 Hospital Encounter [facility] [address] [place] [address] Laureano Bennett MD [address] [place] [address] [phone] documented as of this encounter Visit Diagnoses Not on filedocumented in this encounter Additional Health Concerns Assessment Noted Time PHQ-9 Depression Total Score: 12 023 9:01 AM CDT documented as of this encounter Care Teams High School Combination Teacher Relationship Specialty Start Date End Date Laureano Bennett MD [address] [place] [address] PCP - General Family Medicine 07/07/20 Laureano Bennett MD [address] [place] [address] Assigned PCP 08/14/[address] [place] [address] [place] [address] Airplane Dispatcher Dietitian, Registered 06/14/23 documented as of this encounter
--- OUTSIDE RECORDS SUMMARY | 2023-07-22 16:09 | XMS_ITS ---
Author Name Unknown Organization [place] Address [address] [place] [address] Care Team Providers Care Sales Representatives Name Role Phone Laureano Bennett MD Primary Care Provider Laureano Bennett MD Unavailable [phone] Unavailable [phone] Diabetes Self-Management Education Status:Identified (Enrolling) Start date:06/14/2023 Continued Care and Services Coordination
--- OUTSIDE RECORDS SUMMARY | 2023-07-22 16:09 | XMS_ITS | Encounter Summary ---
Author Name Unknown Organization [place] Address [address] [place] [address] Care Team Providers Care Boner Meat Name Role Phone Renee Bennett MD Primary Care Provider [phone] Renee Bennett MD Unavailable [phone] Reason for Visit * Reason Onset Date Comments Refill Request 01/10/2023 Encounter Details Date Type Department Care Team ([facility] st Contact Info) Description 01/10/2023 MyC Medical Advice [address] [phone] Renee Bennett MD [address] [place] [address] Refill Request Social History Tobacco Use [...] Sent patient mychart message Jaja Stone RN [facility] Triage * Addendum Note - Renee Bennett MD - 01/10/2023 10:51 AM CDTAddended by: RENEE BENNETT on: 01/13/2023 01:48 PM Modules accepted: Orders documented in this encounter Plan of Treatment Upcoming Encounters Date Type Department Care Team (Late st Contact Info) Description 07/26/2023 8:00 AM INFORMATION SERVICES VICE PRESIDENT Appointment [facility] Maternal Medicine [facility] [place] [address] [facility] [address] [place] [address] Rayshawn Nunez MD [address] [place] [address] 07/26/2023 8:30 AM INFORMATION SERVICES VICE PRESIDENT Office Visit [facility] Maternal Medicine [place] [address] [place] [address] Rayshawn Nunez MD [address] [place] [address] 07/29/2023 8:00 AM INFORMATION SERVICES VICE PRESIDENT Office Visit [address] [phone] Renee Bennett MD [address] [place] [address] 07/29/2023 11:45 AM INFORMATION SERVICES VICE PRESIDENT Appointment [facility] Maternal Medicine [place] [address] [address] [facility] [address] [place] [phone] Jennifer Boyer MD [address] [place] [address] 07/29/2023 12:15 PM INFORMATION SERVICES VICE PRESIDENT Office Visit [facility] Maternal Medicine [place] [address] [address] [facility] [address] [place] [address] Jennifer Boyer MD [address] [place] [address] 08/05/2023 8:00 AM INFORMATION SERVICES VICE PRESIDENT Office Visit [address] [phone] Renee Bennett MD [address] [place] [address] 08/23/2023 Hospital Encounter [facility] Birthplace [address] [place] [address] Renee Bennett MD [facility] [place], [place] 438[address] documented as of this encounter Visit Diagnoses Diagnosis Hyperemesis Persistent vomiting documented in this encounter Additional Health Concerns Assessment Noted Time PHQ-9 Depression Total Score: 12 023 9:01 AM CDT documented as of this encounter Care Teams Boner Meat Relationship Specialty Start Date End Date Renee Bennett MD [address] [place] [address] [phone] PCP - General Family Medicine 07/07/20 Renee Bennett MD [address] [place] [address] Assigned PCP 08/14/22 documented as of this encounter
--- OUTSIDE RECORDS SUMMARY | 2023-07-22 16:09 | XMS_ITS | Encounter Summary ---
Author Name Unknown Organization [place] Address [address] [facility] [place] [address] Care Team Providers Care Appeals Manager Name Role Phone Laureano Bennett MD Primary Care Provider [phone] Laureano Bennett MD Unavailable [phone] Encounter Details Date Type Department Care [...] st Contact Info) Description 07/26/2023 8:00 AM CENTRAL SUPPLY CLERK Appointment [facility] Medicine [facility] [place] [address] [facility] [address] [place] [address] Rayshawn Nunez MD [address] [place] [address] 07/26/2023 8:30 AM CENTRAL SUPPLY CLERK Office [facility] Maternal Medicine [facility] [address] [facility] [address] [place] [address] Rayshawn Nunez MD [address] [place] [address] 07/29/2023 8:00 AM CENTRAL SUPPLY CLERK Office Visit [address] [address] Laureano Bennett MD [address] [place] [address] [phone] 07/29/2023 11:45 AM CENTRAL SUPPLY CLERK Appointment [facility] Maternal Medicine [facility] [address] [facility] [address] [place] [address] Jennifer Boyer MD [address] [place] [address] 07/29/2023 12:15 PM CENTRAL SUPPLY CLERK Office Visit [facility] Maternal Medicine [facility] [address] [facility] [address] [place] [address] Jennifer Boyer MD [address] [place] [address] 08/05/2023 8:00 AM CENTRAL SUPPLY CLERK Office Visit [address] [phone] Laureano Bennett MD [address] [place] [address] 08/23/2023 Hospital Encounter [facility] [address] [place] [address] [place] [address] [place] [address] 087592 documented as of this encounter Visit Diagnoses Not on filedocumented in this encounter Additional Health Concerns Assessment Noted Time PHQ-9 Depression Total Score: 12 023 9:01 AM CDT documented as of this encounter Care Teams Appeals Manager Relationship Specialty Start Date End Date Laureano Bennett MD [address] [place] [address] PCP - General Family Medicine 07/07/20 Laureano Bennett MD [address] [place] [address] Assigned PCP 08/14/22 documented as of this encounter
--- OUTSIDE RECORDS SUMMARY | 2023-07-22 16:09 | XMS_ITS | Encounter Summary ---
Author Name Unknown Organization [place] Address [address] [place] [address] Care Team Providers Care Promotions Executive Producer Name Role Phone Laureano Bennett MD Primary Care Provider [phone] Laureano Bennett MD Unavailable [phone] Unavailable [phone] Encounter Details Date Type Department Care Team (Late Contact Info) Description 01/05/2023 MyC Medical Advice [address] [phone] Laureano Bennett MD [address] [place] [address] Social History Tobacco Use Types Packs/Day [...] (Late Contact Info) Description 07/26/2023 8:00 AM CAMPAIGN ASSISTANT Appointment [facility] Maternal Medicine [place] [address] [address] [facility] [address] [place] [address] Rayshawn Nunez MD [address] [place] [address] 07/26/2023 8:30 AM CAMPAIGN ASSISTANT Office Visit [facility] Maternal Medicine [place] [address] [address] [facility] [address] [place] [address] Rayshawn Nunez MD [address] [place] [address] 07/29/2023 8:00 AM CAMPAIGN ASSISTANT Office Visit [address] [address] Laureano Bennett MD [address] [place] [address] 07/29/2023 11:45 AM CAMPAIGN ASSISTANT Appointment [facility] Maternal Medicine [place] [address] [address] [facility] [address] [place] [address] Jennifer Boyer MD [address] [place] [address] 07/29/2023 12:15 PM CAMPAIGN ASSISTANT Office Visit [facility] Maternal Medicine [place] [address] [address] [facility] [address] [place] [address] Jennifer Boyer MD [address] [place] [address] 08/05/2023 8:00 AM CAMPAIGN ASSISTANT Office Visit [address] [address] [place] [address] [place] [address] 805602 08/23/2023 Hospital Encounter [facility] Birthplace [address] [place] [address] Laureano Bennett MD [address] [place] [address] [phone] documented as of this encounter Visit Diagnoses Not on filedocumented in this encounter Additional Health Concerns Assessment Noted Time PHQ-9 Depression Total Score: 12 023 9:01 AM CDT documented as of this encounter Care Teams Promotions Executive Producer Relationship Specialty Start Date End Date Laureano Bennett MD [address] [place] [address] 289042 PCP - General Family Medicine 07/07/20 Laureano Bennett MD [address] [place] [address] 067352 Assigned PCP 08/14/[address] [place] [address] [place] [address] Solution Specialist Dietitian, Registered 06/14/23 documented as of this encounter
--- OUTSIDE RECORDS SUMMARY | 2023-07-22 16:09 | XMS_ITS | Encounter Summary ---
Author Name Unknown Organization [place] Address [address] [place] [address] Care Team Providers Care Hall Cleaner Name Role Phone Laureano Bennett MD Primary Care Provider [phone] Laureano Bennett MD Unavailable [phone] Reason for Visit * Reason Onset Date Comments Results 01/06/2023 Encounter Details Date Type Department Care Team ([facility] st Contact Info) Description 01/06/2023 MyC Medical Advice [address] [phone] Laureano Bennett MD [address] [place] [address] Results Social History Tobacco Use Types [...] to review and advise. Violette Hamilton RN [place] Triage documented in this encounter Plan of Treatment Upcoming Encounters Date Type Department Care Team (Late st Contact Info) Description 07/26/2023 8:00 AM OPERATIONS AND INTELLIGENCE ASSISTANT Appointment [facility] Maternal Medicine [place] [address] [place] [address] Rayshawn Nunez MD [address] [place], [place] [phone] 07/26/2023 8:30 AM OPERATIONS AND INTELLIGENCE ASSISTANT Office Visit [facility] Maternal Medicine [place] [address] [address] [facility] [address] [place] [address] Rayshawn Nunez MD [address] [place], [place] [address] 07/29/2023 8:00 AM OPERATIONS AND INTELLIGENCE ASSISTANT Office Visit [address] [phone] Laureano Bennett MD [address] [place] [address] 07/29/2023 11:45 AM OPERATIONS AND INTELLIGENCE ASSISTANT Appointment [facility] Maternal Medicine [place] [address] [place] [address] Jennifer Boyer MD [address] [place], [place] [phone] 07/29/2023 12:15 PM OPERATIONS AND INTELLIGENCE ASSISTANT Office Visit [facility] Maternal Medicine [place] [address] [place] [address] Jennifer Boyer MD [address] [place], [place] [address] 08/05/2023 8:00 AM OPERATIONS AND INTELLIGENCE ASSISTANT Office Visit [address] [phone] Laureano Bennett MD [address] [place] [address] 646262 08/23/2023 Hospital Encounter [facility] [address] [place] [address] Laureano Bennett MD [address] [place] [address] 634302 documented as of this encounter Visit Diagnoses Not on filedocumented in this encounter Additional Health Concerns Assessment Noted Time PHQ-9 Depression Total Score: 12 023 9:01 AM CDT documented as of this encounter Care Teams Hall Cleaner Relationship Specialty Start Date End Date Laureano Bennett MD [address] [place] [address] PCP - General Family Medicine 07/07/20 Laureano Bennett MD [address] [place] [address] Assigned PCP 08/14/22 documented as of this encounter
--- OUTSIDE RECORDS SUMMARY | 2023-07-22 16:09 | XMS_ITS | Encounter Summary ---
Author Name Unknown Organization [place] Address [address] [place] [address] Care Team Providers Care Reel Slitter Name Role Phone Laureano Bennett MD Primary Care Provider [phone] Laureano Bennett MD Unavailable [phone] Reason for Referral * Diagnostic Imaging Ultrasound (Routine) - Pending Review Specialty Diagnoses / Procedures Referred By Contac t Referred To Contact Radiology. Diagnoses test positive Procedures US OB < 14 Weeks [place] [address] [place] [address] Referral ID Status Reason Start Date Expiration Date V isits Requested Visits Authorized Pending Review 12/23/2022 12/23/2023 1 1 Reason for Visit * Diagnostic Imaging Ultrasound (Routine) - Pending Review Specialty Diagnoses / Procedures Referred By Contac t Referred To Contact Radiology. Diagnoses test positive Procedures US OB < 14 Weeks Single Transabdominal Laureano Bennett MD [address] [place] [address] Referral ID Status Reason Start Date Expiration Date V isits Requested Visits Authorized Pending Review 12/23/2022 12/23/2023 1 1 Encounter Details Date Type Department Care Team (Late st Contact Info) Description 01/05/2023 2:42 PM CDT - 01/05/2023 11:59 PM CDT Hospital Encounter [facility] Imaging [address] [facility] [address] [place] [phone] [place] [address] [place] [address] [phone] test positive Discharge Disposition: Home or Self [...] you very much for trusting me and [facility]. Have a peaceful day. Healthy regards, Prasad Bennett MD documented in this encounter Plan of Treatment Upcoming Encounters Date Type Department Care Team (Late st Contact Info) Description 07/26/2023 8:00 AM WHITE SUGAR SUPERVISOR Appointment [facility] Medicine [place] [address] [place] [address] [place] [phone] Rayshawn Nunez MD [address] [place] [address] 07/26/2023 8:30 AM WHITE SUGAR SUPERVISOR Office Visit [facility] Medicine [place] [address] [address] [facility] [address] [place] [address] Rayshawn Nunez MD [address] [place] [address] 07/29/2023 8:00 AM WHITE SUGAR SUPERVISOR Office Visit [address] [phone] Laureano Bennett MD [address] [place] [address] 07/29/2023 11:45 AM WHITE SUGAR SUPERVISOR Appointment [facility] Maternal Medicine [place] [address] [place] [address] [place] [phone] Jennifer Boyer MD [address] [place] [address] 07/29/2023 12:15 PM WHITE SUGAR SUPERVISOR Office Visit [facility] Maternal Medicine [facility] [place] [address] [place] [address] Jennifer Boyer MD [address] [place] [address] 08/05/2023 8:00 AM WHITE SUGAR SUPERVISOR Office Visit [address] [address] Laureano Bennett MD [address] [place] [address] 223222 08/23/2023 Hospital Encounter [facility] [address] [place] [phone] Laureano Bennett MD [address] [place] [address] [phone] documented as of this encounter Procedures Procedure [...] placental site. YULISSA SKAGGS MD SYSTEM ID: [id number] Narrative 01/06/2023 7:55 AM CDT US OB [...] placental site. YULISSA SKAGGS MD SYSTEM ID: [id number] Laureano Bennett MD IMG US ORDERABLES documented in this encounter Visit Diagnoses Diagnosis test positive examination or test, positive result documented in this encounter Additional Health Concerns Assessment Noted Time PHQ-9 Depression Total Score: 12 01/04/2 023 9:01 AM CDT documented as of this encounter Care Teams Reel Slitter Relationship Specialty Start Date End Date Laureano Bennett MD [address] [place], [place] 367972 PCP - General Family Medicine 07/07/20 Laureano Bennett MD [address] [place], [place] 057032 Assigned PCP 08/14/22 documented as of this encounter
--- OUTSIDE RECORDS SUMMARY | 2023-07-22 16:10 | XMS_ITS | Data Portability ---
Author Name Unknown Address [address] [place] [id number] Phone [phone] Organization [facility], autoContract Address [address] [place] [phone] Assessment Encounter Date Assessment Date Assessment LastModified [...] Lab CBC w/ diff 2021 022 LAURA [facility], [address] [place], [address], 18:37:13 streptococc us group B Ag, vaginal 2021 022 eurban [facility], [address] [place], [address], 23:17:35 CBC w/ diff 2020 021 [facility], [address] [place], [address], 03/02/202 2 13:35:32 treponema pallidum Ab, serum [address] [facility], [address] [place], [address], 2 13:35:32 blood group antibody screen, serum or plasma [address] [facility], [address] [place], [address], 1 12:26:54 abo group + rh type, blood 2020 [facility], [address] [place], [address], 1 13:42:45 CBC w/ diff 2020 021 [facility], [address] [place], [address], 1 13:42:46 urinalysis, reflex culture 2020 021 [facility], [address] [place], [address], 1 13:42:46 CBC w/ diff 2019 020 [facility], [address] [place], [address], 0 13:26:49 streptococc us group B Ag, vaginal 2019 020 [facility], [address] [place], [address], 0 10:35:54 HIV (1+2) Ab screen, serum 2019 020 [facility], [address] [place], [address], 0 15:03:27 blood group antibody screen, serum or plasma 2019 [facility], [address] [place], [address], 0 15:01:51 abo group + rh type, blood 2019 [facility], [address] [place], [address], 0 18:13:11 HBsAg (hepatitis B surface Ag), serum 2019 [facility], [address], [place], [address], 0 15:02:23 hepatitis C Ab, serum 2019 [facility], [address], [place], [address], 0 15:02:34 CBC w/ diff 2019 [facility], [address], [place], [address], 0 15:07:04 CT + NG DNA, PCR, urine 2019 [facility], [address], [place], [address], 0 15:02:57 treponema pallidum Ab, serum 2019 [facility], [address], [place], [address], 0 15:03:07 urinalysis, reflex culture 2019 [facility], [address] [place], [address], 0 12:32:36 rubella Ab, serum 2019 020 [facility], [address], [place], [address], 0 18:12:46 pH, amniotic fluid 2018 019 Not available 9 14:48:59 hepatitis C Ab, serum 2018 019 [facility], [address] [place], [address], 9 18:40:12 CT + NG DNA, PCR, urine [address] Lab, [address] [place], [address], 9 11:18:55 CBC w/ diff [address] Lab, [address] [place], [address], 9 11:18:54 streptococc us group B, culture, genital 2018 [facility], [address] [place], [address], 9 11:03:35 treponema pallidum Ab, serum [address] Lab, [address] [place], [address], 9 11:18:54 type + screen, blood 2018 [facility], [address] [place], [address], 9 08:30:37 Referral None recorded. Procedures None recorded. Surgeries None recorded. Imaging US, obstetric, 1st trimester - Unsure of LMP 2020 021 [facility], [address], [address], 1 14:22:43 US, obstetric, 2nd trimester - 20 week anatomy scan 2019 020 [facility], [address] [place], [address], 0 16:08:52 non-stress test 2018 019 Main Office, [address] [place], [address], 9 14:49:00 US, obstetric, limited 2018 019 [place] Main Office, [address] [place], [address], 9 20:50:25 Medication Orders ampicillin 2 gram [...] Room with ability to accept labor/delivery patients ([place] [employer]), they left via their own vehicle and [...] available 09/10/2021 14:13:38 08/13/2021 [id number] check out [email or web address] for a quick review on kick counts [...] to check out our video library at [email or web address] These resources can supplement the information you get during your care at [facility]. While we schedule routine visits based [...] information on testing and procedures of . [facility] schedule for routine care discussed. While [...] meets the risk criteria for care at [facility] and is anticipated to have a [...] concerned again. Not available 05/20/2020 19:22:37 05/07/2020 [id number] Yu is doing well. We discussed briefly the chances of being GBS positive again and treatment of that, should it occur. She is feeling healthy and looking foward to her upcoming . I recommended a virtual appointment in a week to go over lab results. eurban Not available 05/07/2020 22:58:41 05/06/2020 [id number] Discussed when a nd how to contact the on-call manager of hospital, when to come in for labor, what to expect once admitted at [facility] and expectations for period. Not available 05/07/2020 [...] sure to check out our website at [email or web address] and click on the page for Current Client Information. This page is password protected and that password is: [email or web address]. On this page you will find our client handbook with many informational handouts pertaining to your , , and time. We also have recorded videos covering some of the most common topics/question. These resources can supplement the information you get during your care at [facility]. While we schedule routine visits based [...] information on testing and procedures of . [facility] schedule for routine care discussed. While [...] meets the risk criteria for care at [facility] and is anticipated to have a [...] time. No circ if boy. Still evaluating [employer]. Maybe Landon Romero. Feeling some pelvic pressures and moises del rosario. 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 Reviewed when to call in labor and [...] good hydration. 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 Yu is planning to head to the lab either today or at her next visit. GBS swab was collected in-office today. Discussed HSV lab that has been added to final lab panel due to the options of benny at [facility]. Reviewed NB care and screenings. Yu is [...] a pediatric care provider; gave recommendation of [facility]. Have decided to hire [employer] as their equipment worker. Early US report was not included in [...] visit in 3 week. Please contact the manager of hospital with questions or concerns, as needed either through your health portal or via phone call. Not available 08/08/2018 13:05:53 Yu is here t skye for an initial visit with our practice, accompanied by her son. She is transferring into our care from a [facility] practice at 31.1 weeks gestation. Yu [...] and how and when to contact the manager of hospital for urgent or routine needs. Schedule for visits discussed and the client would prefer to meet on the WHO schedule for care. Labs have been requested from previous provider. At this time, she meets the risk criteria for care at [facility] and is anticipated to have a low-risk //postp artum time. Not available 08/08/2018 20:44:44 Reason for Referral None Reported. Results Created Date Observation Date Name Description Value Unit Range Abnormal Flag LastModifiedBy Organization Detail LastModifiedTime 09/13/19 19 09/12/2018 strep tococ cus group B, cultu re, genit al gbs pos positive Not Available [facility] [address], [place], [address], 09/14/2018 10:53:55 01/18/20 20 01/18/2020 CBC w/ diff CBC normal Not Available [facility] [address] [place], [address], 03/11/2020 15:06:33 05/07/20 20 05/07/2020 strep tococ cus group B Ag, vagin al gbs pos positive Not Available [facility] [address] [place], [address], 05/14/2020 10:34:58 05/07/20 20 05/07/2020 strep tococ cus group B Ag, vagin al CBC WNL normal Not Available [facility] [address] [place], [address], 05/14/2020 10:34:58 05/07/20 20 05/07/2020 strep tococ cus group B Ag, vagin al gbs pos positive Not Available [facility] [address] [place], [address], 05/14/2020 10:42:38 05/07/20 20 05/07/2020 strep tococ cus group B Ag, vagin al CBC normal Not Available [facility] [address] [place], [address], 05/14/2020 10:42:38 09/05/19 19 03/21/2018 US, obste tric, 1st trime ster No observ ation record ed. Not Available 09/04/2018 12:59:12 10/30/19 20 10/29/2019 US, obste tric, 1st trime ster No observ ation record ed. eurban [facility] [address] [facility] [place], [address], 11/15/2019 15:42:10 01/21/20 20 01/18/2020 US, obste tric, 2nd trime ster No observ ation record ed. [facility] [address] [place], [address], 02/13/2020 16:08:31 05/06/20 21 05/05/2021 US, obste tric, 1st trime ster No observ ation record ed. [facility] [address] [place], [address], 05/15/2021 11:32:48 06/19/20 21 06/17/2021 US, obste tric, 2nd trime ster No observ ation record ed. [address] [facility] [address] [place], [address], 08/13/2021 12:16:59 10/17/19 22 10/15/2021 US, obste tric, 3rd trime ster No observ ation record ed. [address] [facility] [address] [place], [address], 11/03/2021 14:51:29 Result Notes Documentation Provider Name and Address Organization Details Recorded Time Cbc W/ Diff : CBC WITH AUTO DIFFERENTIAL (01/18/2020 2:47 PM CDT): WHITE BLOOD COUNT 7.4 4.5 - 11.0 thou/cu [facility] CLINIC RED BLOOD COUNT 4.21 4.20 - 5.40 mil/cu [facility] HEMOGLOBIN 12.7 12.0 - 16.0 g/dL AND [facility] HEMATOCRIT 37.7 36.0 - 48.0 % [facility] MCV 90 80 - 100 fL AND [facility] MCH 30.2 27.0 - 31.0 pg [facility] MCHC 33.7 32.0 - 36.0 g/dL [facility] RDW 13.1 11.0 - 15.0 % [facility] PLATELET COUNT 203 142 - 424 thou/cu [facility] AND CLINIC MPV 9.5 6.5 - 11.0 fL AND CLINIC NEUTROPHILS 75.1 37.0 - 80.0 % AND CLINIC LYMPHOCYTES 18.4 10.0 - 50.0 % AND CLINIC MONOCYTES 4.9 % AND CLINIC EOSINOPHILS 0.9 % AND CLINIC BASOPHILS 0.3 % AND CLINIC ABSOLUTE NEUTROPHILS 5.6 1.7 - 7.0 thou/cu [facility] AND CLINIC ABSOLUTE LYMPHOCYTES 1.4 0.9 - 2.9 ou/cu [facility] AND CLINIC ABSOLUTE MONOCYTES 0.4 <0.9 ou/cu [facility] AND CLINIC ABSOLUTE EOSINOPHILS 0.1 <0.5 ou/cu [facility] AND CLINIC ABSOLUTE BASOPHILS 0.0 <0.3 ou/cu [facility] AND CLINIC Specimen Blood - Blood specimen (specimen) Donna Rae CPM, [place], [address], [facility] 03/11/2020 15:07:57 Problems Name Status Onset Date Resolution Date Notes Provider Name and Address Organization Details Recorded Time Completed 07/31/19 19 10/09/2019 Donna Rae CPM, [place], [address], [facility] 05/04/2022 18:54:58 Completed 10/09/19 20 12/12/2019 Donna Rae CPM, [place], [address], [facility] 05/04/2022 18:54:58 Completed 03/16/20 20 04/21/2021 Donna Rae CPM, [place], [address], [facility] 05/04/2022 18:54:58 state Completed 05/31/20 20 09/24/2021 Donna Rae CPM, [place], [address], [facility] 09/24/2021 02:45:00 state Completed 05/31/20 20 RAF TORO, IGOR, LM [address], [place], [address], [facility] 04/21/2021 10:48:22 Completed 04/21/20 21 05/04/2022 Donna Rae CPM, LM [address] [place], [address], [facility] 05/04/2022 18:54:58 Problem Notes None recorded. Procedures Surgical History Date Name Laterality Status Provider Name and Address Organization Details Recorded Time 05/30/2020 Stages & Baby 2 completed Donna Rae CPM, LM [address], [place], [address], [facility] 05/30/2020 15:01:59 10/04/2018 [facility]/04[facility] 06:38:17 Imaging Results Imaging Date Name Status LastModified by Organiz ation Details LastModified Time 03/21/2018 US, obstetric, 1st trimester completed Information not available 09/04/2018 12:59:12 10/29/2019 US, obstetric, 1st trimester completed [facility] [address] [place], [address], 11/15/2019 15:42:10 01/18/2020 US, obstetric, 2nd trimester completed [facility] [address] [place], [address], 02/13/2020 16:08:31 05/05/2021 US, obstetric, 1st trimester completed [facility] [address] [place], [address], 05/15/2021 11:32:48 06/17/2021 US, obstetric, 2nd trimester completed [address] [facility] [address] [place], [address], 08/13/2021 12:16:59 10/15/2021 US, obstetric, 3rd trimester completed [address] [facility] [address], [place], [address], 11/03/2021 14:51:29 Procedure Notes None recorded. Medical [...] Address Organization Details Last Updated DateTime 9 [address].0 0209 g 23.2 kg/m2 175.26 cm 14 /min 90 /min 98.1 [degF] 125 mm[Hg] 78 mm[Hg] [facility] 9 10:47:03 Date Recorded Body height Respiratory rate Heart rate Body temperature Systolic blood pressure Diastolic blood pressure Provider Name and Address Organization Details Last Updated DateTime 9 175.26 cm 14 /min 90 /min 97.4 [degF] 124 mm[Hg] 60 mm[Hg] [facility] 9 11:25:08 Date Recorded Body height Body mass index (BMI) Body weight Respiratory rate Heart rate Body temperature Systolic blood pressure Diastolic blood pressure Provider Name and Address Organization Details Last Updated DateTime 9 175.26 cm 23.5 kg/m2 11156.1 8683 g 14 /min 80 /min 98.2 [degF] 120 mm[Hg] 70 mm[Hg] [facility] 9 09:57:12 Date Recorded Body height Heart rate Body temperature Respiratory rate Body mass index (BMI) Body weight Systolic blood pressure Diastolic blood pressure Provider Name and Address Organization Details Last Updated DateTime 175.26 cm 70 /min 98.3 [degF] 14 /min 23.8 kg/m2 97199.3 7157 g 124 mm[Hg] 84 mm[Hg] [facility] 9 10:18:31 Date Recorded Body height Body mass index (BMI) Body weight Body temperature Heart rate Respiratory rate Systolic blood pressure Diastolic blood pressure Provider Name and Address Organization Details Last Updated DateTime 9 175.26 cm 23.9 kg/m2 03849.9 6394 g 98.3 [degF] 80 /min 14 /min 110 mm[Hg] 62 mm[Hg] [facility] 9 10:50:13 Date Recorded Body height Heart rate Body temperature Respiratory rate Systolic blood pressure Diastolic blood pressure Provider Name and Address Organization Details Last Updated DateTime 9 175.26 cm 80 /min 98.2 [degF] 14 /min 112 mm[Hg] 64 mm[Hg] [facility] 9 06:39:31 Date Recorded Body height Heart rate Body temperature Systolic blood pressure Diastolic blood pressure Provider Name and Address Organization Details Last Updated DateTime 10/05/2018 175.26 cm 80 /min 98.6 [degF] 110 mm[Hg] 62 mm[Hg] Donna Rae, [facility], LM [address] [place], [address], [facility] 9 16:38:17 Date Recorded Body height Body mass index (BMI) Respiratory rate Heart rate Body temperature Systolic blood pressure Diastolic blood pressure Provider Name and Address Organization Details Last Updated DateTime 9 175.26 cm 22.6 kg/m2 14 /min 80 /min 97.8 [degF] 118 mm[Hg] 70 mm[Hg] Gaye song, [facility] 9 10:57:52 Date Recorded Body weight Provider Name an d Address Organization Details Last Updated DateTime 11/06/2018 58135.24971 g Donna Rae, CPM, LM [address] [place], [place], , [facility] 10/09/2019 19:12:51 Date Recorded Body height Body mass index (BMI) Body weight Provider Name and Address Organization Details Last Updated DateTime 12/31/2019 175.26 cm 22.4 kg/m2 19631.60945 g RAF TORO, CPM, LM [address] [place], [place], , [facility] 12/31/2019 14:10:49 Date Recorded Body height Provider Name an d Address Organization Details Last Updated DateTime 02/11/2020 175.26 cm RAF TORO CPM, LM [address] [place], [place], , [facility] 02/11/2020 11:34:03 Date Recorded Body height Heart rate Systolic blood pressure Diastolic blood pressure Provider Name and Address Organization Details Last Updated DateTime 03/11/2020 175.26 cm 85 /min 122 mm[Hg] 76 mm[Hg] RAF TORO CPM, LM [address] [place], [place], , [facility] 03/11/2020 17:30:07 Date Recorded Body height Heart rate Body temperature Systolic blood pressure Diastolic blood pressure Provider Name and Address Organization Details Last Updated DateTime 04/01/2020 175.26 cm 80 /min 97.9 [degF] 129 mm[Hg] 80 mm[Hg] RAF TORO CPM, LM [address] [place], [place], , [facility] 0 17:39:34 Date Recorded Body height Provider Name an d Address Organization Details Last Updated DateTime 04/07/2020 175.26 cm RAF TORO CPM, LM [address] [place], [place], , [facility] 04/07/2020 11:56:21 Date Recorded Body height Heart rate Respiratory rate Systolic blood pressure Diastolic blood pressure Provider Name and Address Organization Details Last Updated DateTime 05/07/2020 175.26 cm 90 /min 14 /min 118 mm[Hg] 74 mm[Hg] Donna Rae, CPM, LM [address] [place], [address], [facility] 0 22:52:32 Date Recorded Body height Heart rate Systolic blood pressure Diastolic blood pressure Provider Name and Address Organization Details Last Updated DateTime 05/20/2020 175.26 cm 90.01 /min 120 mm[Hg] 75 mm[Hg] RAF TORO CPM, LM [address] [place], [address] , [facility] 05/20/2020 19:15:13 Date Recorded Body height Respiratory rate Body temperature Systolic blood pressure Diastolic blood pressure Provider Name and Address Organization Details Last Updated DateTime 0 175.26 cm 16 /min 97.4 [degF] 120 mm[Hg] 75 mm[Hg] Donna Rae, IGOR, LM [address] [place], [address], [facility] 0 13:16:18 Date Recorded Body height Provider Name an d Address Organization Details Last Updated DateTime 06/11/2020 175.26 cm Donna Rae [facility], LM [address] [place], [address], [facility] 06/11/2020 18:56:05 Date Recorded Body height Body mass index (BMI) Body weight Heart rate Systolic blood pressure Diastolic blood pressure Provider Name and Address Organization Details Last Updated DateTime 1 175.26 cm 21.9 kg/m2 91657.6 7076 g 90 /min 117 mm[Hg] 78 mm[Hg] RAF TORO CPM, LM [address] [place], [address], [facility] 1 17:09:39 Date Recorded Body height Heart rate Systolic blood pressure Diastolic blood pressure Provider Name and Address Organization Details Last Updated DateTime 06/17/2021 175.26 cm 85 /min 112 mm[Hg] 72 mm[Hg] RAF TORO, IGOR, LM [address] [place], [address] , [facility] 06/17/2021 13:50:56 Date Recorded Body height Heart rate Body temperature Systolic blood pressure Diastolic blood pressure Provider Name and Address Organization Details Last Updated DateTime 09/10/2021 175.26 cm 80 /min 97.2 [degF] 107 mm[Hg] 68 mm[Hg] RAF TORO, CPM, LM [address] [place], [address], [facility] 14:03:35 Date Recorded Body height Heart rate Systolic blood pressure Diastolic blood pressure Provider Name and Address Organization Details Last Updated DateTime 10/15/2021 175.26 cm 90 /min 126 mm[Hg] 76 mm[Hg] RAF TORO CPM, LM [address] [place], [address] , [facility] 10/15/2021 12:24:38 Date Recorded Body height Respiratory rate Heart rate Body temperature Systolic blood pressure Diastolic blood pressure Provider Name and Address Organization Details Last Updated DateTime 175.26 cm 16 /min 64.99 /min 98.5 [degF] 118 mm[Hg] 79 mm[Hg] RAF TORO, IGOR, LM [address] [place], [address], [facility] 08:03:36 Social History Question Answer Notes LastModified by Organizat ion Details LastModified Time Tobacco Smoking Status Never Smoker Not Available [employer] 04/22/2020 03:13:44 Do You Have An Advance Directive? No [id number] Information not available 04/22/2020 What Is Your Level Of Alcohol Consumption? None [id number] Information not available 04/22/2020 If You Are , What Was Your Level Of Alcohol Consumption Prior To ? Occasional [id number] Information not available 04/22/2020 Plan No Information no t available 08/13/2021 Is Blood Transfusion Acceptable In An Emergency? Yes [id number] Information not available 04/22/2020 What Is Your Level Of Caffeine Consumption? Moderate [id number] Information not available 04/22/2020 Live With Cats/exposure To Cat Litter No Information not available 08/13/2021 Are You Currently Employed? No [id number] Information not available 04/22/2020 What Type Of Diet Are You Following? REGULAR [id number] Information not available 04/22/2020 Do You Or Have You Ever Used E-cigarettes Or Vape? Never Used Electronic Cigarettes Information not available 08/13/2021 Education 4 Year College Informatio n not available 08/13/2021 Have There Been Any Changes To Your Family Or Social Situation? No [id number] Information no t available 04/22/2020 Illicit Drugs [...] available 08/13/2021 Are You Sexually Active? Yes [id number] Information not available 04/22/2020 Do You Have Smoke And Carbon Monoxide Detectors In Your Home? Yes [id number] Information not available 04/22/2020 Are You Passively Exposed To Smoke? No Information no t available 08/08/2018 Do You Or Have You Ever Used Smokeless Tobacco? Never Used Smokeless Tobacco Information not available 08/13/2021 How Much Tobacco Do You Smoke? No [id number] Information not available 04/22/2020 Smoking Pre- No Information not available 08/13/2021 General Stress Level Low Information not available 08/13/2021 Do You Use Sunscreen Routinely? No [id number] Information not available 04/22/2020 How Many Years [...] Time What is your exercise level? Heavy [id number] Information not available 04/22/2020 Mental Status None [...] [address] Gaye [address]osa Main Office [address] [place] [address] 08/08/2018 10:35:32 08/11/2018 01:02:51 Routine care Gestation period, 31 weeks Fatigue during Breech presentation 4558 Gaye Manuelosa Main Office [address] [place] [address] 08/29/2018 10:57:53 09/18/2018 13:29:03 Routine care Gestation period, 34 weeks 4605 Gaye Manuelosa Main Office [address] [address] 09/12/2018 09:23:49 09/18/2018 13:32:39 Normal Routine care 4656 Gaye Port[address] Main Office [place] [address] 09/26/2018 10:01:56 10/16/2018 20:55:49 Routine care Gestation period, 38 weeks 4679 Gaye [address]osa Main Office [place] [address] 10/03/2018 10:25:06 10/16/2018 20:58:17 Gestation period, 39 weeks Routine care Amniotic fluid leaking Group B Streptococcus carrier 4686 [facility] [address] [place] [address] 10/04/2018 06:18:47 10/04/2018 07:40:57 Normal Single live Gestation period, 39 weeks Group B Streptococcus carrier 4698 Donna Rae CPM, HOME [address] [place] [address] 10/05/2018 16:37:36 10/17/2018 00:19:07 care management 4844 Gaye Portillo Main Office [facility] [place] [address] 11/06/2018 10:26:10 11/11/2018 20:52:02 care 6420 RAF TORO CPM, LM Main Office [facility] [place] [address] 12/31/2019 13:32:23 12/31/2019 17:00:21 Routine care 6583 RAF TORO CPM, LM Main Office [facility] [place] [address] 02/11/2020 11:33:06 02/11/2020 12:48:27 Second trimester Routine care 6670 RAFFLORENCE TORO, CPM, LM Main Office [address] [address] 03/11/2020 17:27:37 03/11/2020 18:17:52 Routine care 6736 RAFFLORENCE TORO, CPM, LM Main Office [address] [place] [address] 04/01/2020 17:03:17 04/01/2020 18:02:23 6751 RAF HAZEL, CPM, LM Main Office [address] [place] [address] 04/07/2020 11:53:53 04/07/2020 12:50:06 Routine care 6808 RAFFLORENCE TORO, CPM, LM Main Office [place] [address] 04/22/2020 12:36:22 04/22/2020 16:52:34 Normal 6869 RAF TORO, CPM, LM Main Office [address] [place] [address] 05/06/2020 14:07:01 05/07/2020 13:42:55 6881 Donna Rae CPM, LM Main Office [facility] [place] [address] 05/07/2020 22:49:56 05/10/2020 08:36:34 6941 RAF TORO, CPM, LM Main Office [facility] [place] [address] 05/20/2020 19:14:31 05/20/2020 19:27:22 Routine care 6980 Donna Rae CPM, LM CENTER [place] [address] 05/30/2020 14:46:52 06/01/2020 17:25:33 Normal Single live Gestation period, 39 weeks 6983 Donna Rae CPM, LM Main Office [place] [address] 05/31/2020 13:14:00 05/31/2020 13:21:46 care 7030 Donna Rae CPM, LM Main Office [address] [place] [address] 06/11/2020 18:55:40 06/11/2020 19:44:21 care 8443 RAF TORO CPM, LM Main Office [address] [place] [address] 04/21/2021 15:25:38 04/25/2021 22:50:30 Routine care 8719 RAF TORO CPM, LM Main Office [address] [place] [address] 06/17/2021 13:03:46 06/30/2021 17:45:02 Routine care Second trimester Normal 8978 RAF TORO CPM, LM Main Office [address] [place] [address] 08/13/2021 12:07:53 12/27/2021 00:59:41 Routine care 9161 RAF TORO CPM, LM Main Office [address] [place] [address] 09/10/2021 11:52:43 09/29/2021 14:58:37 Routine care Normal 9305 RAF TORO CPM, LM Main Office [facility] [place] [address] 10/15/2021 12:02:35 12/27/2021 02:46:47 Routine care 9324 RAF TORO CPM, LM Main Office [facility] [place] [address] 10/25/2021 08:02:05 12/27/2021 01:59:03 9339 RAF TORO CPM, LM Main Office [facility] [place] [address] 10/29/2021 19:25:49 12/27/2021 01:05:06 Health Concerns Section Related Observation LastModified by Organization Detai ls LastModified Time None Recorded Concern Status LastModified by Organization Details LastModified Time None Recorded Advance Directives Directive N: Payers Encounter Date Sequence Insurance Name Policy Number Policy Whitney Covered Member ID Whitney Member ID Guarantor Name 10/29/2021 1 [place]NM[employer]BS Yu Tupy [id number] Yu Tupy 10/25/2021 1 [place] Yu Tupy [id number] Yu Tupy 10/15/2021 1 [place] Yu Tupy [id number] Yu Tupy 09/10/2021 1 [place] Yu Tupy [id number] Yu Tupy 08/13/2021 1 [place] Yu Tupy [id number] Yu Tupy 06/17/2021 1 [place] Yu Tupy [id number] Yu Tupy 04/21/2021 1 [place] Yu Tupy [id number] Yu Tupy 06/11/2020 1 [place] [employer] Yu Tupy [id number] Yu Tupy 05/31/2020 1 [place] [employer] Yu Tupy [id number] Yu Tupy 05/30/2020 1 [place] [employer] Yu Tupy [id number] Yu Tupy 05/20/2020 1 [place] [employer] Yu Tupy [id number] Yu Tupy 05/07/2020 1 [place] [employer] Yu Tupy [id number] Yu Tupy 05/06/2020 1 [place] [employer] Yu Tupy [id number] Yu Tupy 04/22/2020 1 [place] [employer] Yu Tupy [id number] Yu Tupy 04/07/2020 1 [place] Yu Tupy [id number] Yu Tupy 04/01/2020 1 [place] [employer] Yu Tupy [id number] Yu Tupy 03/11/2020 1 [place] [employer] Yu Tupy [id number] Yu Tupy 02/11/2020 1 [place] Yu Tupy [id number] Yu Tupy 12/31/2019 1 [place] [employer] Yu Tupy [id number] Yu Tupy 11/06/2018 1 [place] [employer] Yu Tupy [id number] Yu Tupy 10/05/2018 1 [place] Yu Tupy [id number] Yu Tupy 10/04/2018 1 [place] [employer] Yu Tupy [id number] Yu Tupy 10/03/2018 1 [place] [employer] Yu Tupy [id number] Yu Tupy 09/26/2018 1 [place] [employer] Yu Tupy [id number] Yu Tupy 09/12/2018 1 [place] [employer] Yu Tupy [id number] Yu Tupy 08/29/2018 1 [place] [employer] Yu Tupy [id number] Yu Tupy 08/08/2018 1 [place]) M[employer]BS Yu Tupy [id number] Yu Renee Notes Date Note Type Note Provider Name and Address Organization Details Recorded Time 08/08/2018 text/html HPI Notes: Elva santa is a 23 year old [id number] presents today for an initial visit with our practice. She is transferring into our care from the clinic in [place] . Yu stated they based her DALLAS of 10/09/18 on her LMP of 01/11/18 and did not adjust for cycle length. She states she had an early US that confirmed DALLAS. We have not yet received Yu's medical records from her previous provider but will adjust or confirm DALLAS upon receival and review of records. [facility] 20:50:06 08/29/2018 text/html HPI Notes: Jaqueline santa is a 23 year old at 34wk1d who presents today for a routine visit. Baby was breech at her previous P[facility] so she is anxious to find out baby's presentation today. [facility] 08/29/[facility] 13:17:47 09/12/2018 text/html HPI Notes: Jaqueline santa is a 23 year old at 36.1 weeks with an DALLAS of 10/09/18 who presents today for a routine visit. [facility] 09/12/2018 12:22:50 09/26/2018 text/html HPI Notes: Jaqueline santa is a 23 year old at 38wk1d with an DALLAS of 10/09/17 who presents today for a routine visit. [facility] 09/26/2018 10:52:12 10/03/2018 text/html HPI Notes: Jaqueline santa is a 23 year old at 39wk1d with an DALALS of 10/09/18 who presents today for a routine visit. She reports she has noticed some water discharge so we will assess for SROM. [facility] 10/03/2018 17:39:21 10/04/2018 text/html HPI Notes: Jaqueline santa is a 23 year old with an DALLAS of 10/09/18 who presents today at 39wk1d in latent labor. She is being admitted for an anticipated with a valladares vertex baby. SROM confirmed at 1000 on 10/03/18. [facility] 10/04/2018 06:46:51 10/05/2018 text/html HPI Notes: Reported [...] problems; no mastitis; normal mood Donna Rae, [facility], LM [address] [place], [address], [facility] 10/05/2018 16:45:29 11/06/2018 text/html HPI Notes: Jaqueline santa is a 23 year old who had a at [facility] on 10/04/18. She has had an uncomplicated and presents today for her final PP visit. [facility] 11/06/2018 13:32:14 12/31/2019 text/html HPI Notes: John montenegro presents for an initial visit with our practice. She has not been seen by another provider for this . Last menstrual period is unknown. She is a G 3 P 2 Her DALLAS is 06/02/2020 based on Ultrasound. She has taken a home test with a positive result. RAF TORO, [facility], LM [address] [place], [address], [facility] 12/31/2019 14:14:23 02/11/2020 text/html HPI Notes: John montenegro is a 24 year old, . Today she presents for a routine visit at 24 gestation. RAF TORO CPM, LM [address], [place], [address], [facility] 02/11/2020 12:48:18 03/11/2020 text/html HPI Notes: John montenegro is a 24 year old, . Today she presents for a routine visit at 28.1 gestation. RAF TORO CPM, LM [address], [place], [address], [facility] 03/11/2020 18:17:43 04/01/2020 text/html HPI Notes: John montenegro is a 24 year old, . Today she presents for a cervical exam to possibly detect amniotic fluid at 31.1 gestation. Yu called the on-call line reporting concerns of a possible leak and agreed to come in for evaluation. RAF TORO CPM, LM [address], [place], [address], [facility] 04/01/2020 18:02:15 04/07/2020 text/html HPI Notes: John montenegro is a 24 year old, . Today she presents for a routine visit at 32 gestation. RAF TORO CPM, LM [address], [place], [address], [facility] 04/07/2020 12:49:58 04/22/2020 text/html HPI Notes: John montenegro is a 24 year old, . Today she presents for a routine visit at 34.1 gestation. RAF TORO CPM, LM [address] [place], [address], [facility] 04/22/2020 16:52:26 05/06/2020 text/html HPI Notes: John montenegro is a 24 year old, . Today she presents for a routine visit at 36.1 gestation. RAF TORO CPM, LM [address], [place], [address], [facility] 05/07/2020 13:42:47 05/07/2020 text/html HPI Notes: John montenegro is a 24 year old, . Today she presents for a routine visit at 36.2 wks gestation. Today's in-office visit is to confirm position and collection of labs, including GBS screening. Donna Rae CPM, LM [address] [place], [address], [facility] 05/07/2020 22:59:22 05/20/2020 text/html HPI Notes: John montenegro is a 24 year old, . Today she presents for pelvic exam and to confirm membranes are still intact. She is 38.1 wks gestation. RAF TORO CPM, [facility] [facility], [place], [address], [facility] 05/20/2020 19:27:16 05/30/2020 text/html HPI Notes: John montenegro is a 24 year old presenting in active labor/ 2nd stage of labor. Risk status has been reviewed and patient does meet risk criteria for admission to [facility] for delivery. Intake vitals are within normal and normal delivery is anticipated. presentation is vertex and position is ELPIDIO. EFW in lbs is: 8. Patient is well nourished and hydrated on arrival. She is accompanied by her , Kennedy, and her equipment worker, Katalina. Donna Rae CPM, [facility] [place], [address], [facility] 05/30/2020 15:03:12 05/31/2020 text/html HPI Notes: Visit [...] Donna Rae CPM, LM [address] [place], [address], [facility] 05/31/2020 13:21:22 06/11/2020 text/html HPI Notes: Visit [...] visit. Donna Rae CPM, LM [address] [place], [address], [facility] 06/11/2020 19:03:00 04/21/2021 text/html HPI Notes: John [...] positive result on or around 03/04/21. RAF TROO CPM, LM [address] [place] [place], [address], [facility] 04/21/2021 17:12:59 06/17/2021 text/html HPI Notes: John montenegro is a 25 year old, . Today she presents for a routine in-office visit at 19.6 wks gestation. RAF TORO CPM, LM [address] [place] [place], [address], [facility] 06/17/2021 13:53:56 08/13/2021 text/html HPI Notes: John montenegro is a 26 year old, . Today she presents for a routine in-office visit at 28 wks gestation. RAF TORO CPM, LM [address] [place], [address], [facility] 08/13/2021 12:55:49 09/10/2021 text/html HPI Notes: John montenegro is a 26 year old, . Today she presents for a routine in-office visit at 32 wks gestation. RAF TORO CPM, LM [address] [place], [address], [facility] 09/10/2021 14:16:29 10/15/2021 text/html HPI Notes: oJhn montenegro is a 26 year old, . Today she presents for a routine in-office visit at 37.0 wks gestation. RAF TORO CPM, LM [address] [place], [address], [facility] 10/15/2021 12:31:00 10/25/2021 text/html HPI Notes: John montenegro is a 26 yo presenting for labor assessment today due to regular uterine contractions since 0200. RAF TORO CPM, LM [address] [place], [address], [facility] 10/25/2021 08:13:28 OBGyn Episode Ob Episode Information Episode Created Date Number of Fetuses Patient Bloodtype Patient rh Status Prepregnancy Weight lbs Domestic Partner Domestic Partner Phone Father Name Willow Analyst Status 07/31/19 19 1 A Positive 137 [...] Cervic Effacement Cervic Station none 31 cm [place] Type Weight in lbs BP [...] Cervic Effacement Cervic Station none 37 cm [place] Type Weight in lbs BP Diastolic BP Location Tested BP Systolic BP Type 84 124 sitting Fetus Heart Rate Present A 130-140s Present Fetus Movement A Yes Comments Feeling occasional pressure and [place] contractions. Lots of movement.LOTEFW: 6.5lbs Flowsheet Date 10/03/2018 Cruz Score Blood Edema Fundus Height Fundus [...] Estim ated Date of Delivery false Thalassemia (Belarusian, Costa Rican, Mediterranean, Or Background): MCV < 80 false Neural Tube Defect (Meningomyelocele, Spina Bifi da, Or Anencephaly) false Congenital Heart Defect false Down Syndrome false Moe-Sachs (eg, Jew, Cajun, Jordanian-Ugandan) f alse Brett Disease false Sickle Cell Disease Or Trait () false Hemophilia Or Other Blood Disorders false Muscular Dystrophy false Cystic Fibrosis false Woodstock's Chorea false Intellectual Disability/Autism false If Yes, [...] 38 wk- role of midwi fe vs. equipment worker here and in a transfer, plan for [...] 08/29/2018 30-32 wk- Pediatrici an name collected [facility]? 09/26/2018 36 wk- ordered final labs, [...] Domestic Partner Domestic Partner Phone Father Name Willow Analyst Status 10/09/19 20 1 A Positive 145 [place] CLOSED Fetus Data First Name Last Name Admitted to NICU Weight (g) Sex Living Outcome Pediatric Complications Fetus ID Race Codes Race Delivery Type Tupy false 3883.88 15 M true Full Term 2432 2106-3 White Problems Problem Notes Problem Name Start Date End Date Resolution Snomed Code Not e state 05/31/2020 [id number] Dallas Calculation Initial Dallas Date Initial Exam [...] Rate Present Fetus Movement A Yes Comments uY is doing well, has hood d her [...] Estim ated Date of Delivery false Thalassemia (Belarusian, Costa Rican, Mediterranean, Or Background): MCV < 80 false Neural Tube Defect (Meningomyelocele, Spina Bifi da, Or Anencephaly) false Congenital Heart Defect false Down Syndrome false Moe-Sachs (eg, Jew, Cajun, Jordanian-Ugandan) f alse Brett Disease false Sickle Cell Disease Or Trait () false Hemophilia Or Other Blood Disorders false Muscular Dystrophy false Cystic Fibrosis false Woodstock's Chorea false Intellectual Disability/Autism false If Yes, [...] Discuss the ways to contact the oncall manager of hospital 12/31/2019 Nutrition counseling ; special diet; dietary [...] care provider Unsure but possibly planning on [facility] pediatricians Third Trimester Discussed Date Discussion Item Discussion Note Discuss ed By 04/07/2020 30-32wk GDM results reviewed, diet diary collected for women with positive screen 05/07/2020 36wk-Siblings and gu ests during labor and eurban 04/07/2020 30-32 wk nutrition and exercise review 05/07/2020 36 wks- equipment worker? Any q uestions about mask policies at [facility] for family? Insole Bottom Filler is Katalina eurban 05/06/2020 34wk- discuss GBS [...] Domestic Partner Domestic Partner Phone Father Name Willow Analyst Status 08/30/19 19 1 CLOSED Fetus Data [...] Domestic Partner Domestic Partner Phone Father Name Willow Analyst Status 04/21/20 21 [address] R[address]e [address] Ruano at [place] CLOSED Fetus Data First Name Last Name [...] Estim ated Date of Delivery false Thalassemia (Belarusian, Costa Rican, Mediterranean, Or Background): MCV < 80 false Neural Tube Defect (Meningomyelocele, Spina Bifi da, Or Anencephaly) false Congenital Heart Defect false Down Syndrome false Moe-Sachs (eg, Jew, Cajun, Jordanian-Ugandan) f alse Brett Disease false Sickle Cell Disease Or Trait () false Hemophilia Or Other Blood Disorders false Muscular Dystrophy false Cystic Fibrosis false Woodstock's Chorea false Intellectual Disability/Autism false If Yes, [...] Discuss the ways to contact the oncall manager of hospital 04/21/2021 Nutrition counseling ; special diet; dietary [...] carseat and carseat safety 10/15/2021 36 wks- equipment worker? Any q uestions about mask policies at [facility] for family? Katalina Shukla 10/15/2021 36 wks- Discuss plac enta and note if family has plans for it. 09/10/2021 34wk- discuss GBS te sting and treatment options 36wk- and s igned informed consent, if applicable N/A 08/13/2021 movement monitoring rh [email or web address] 10/15/2021 36 wk- ordered final labs, signed refusals for those not consenting 10/15/2021 [place] education (n ewborn screening, jaundice, SIDS/safe sleeping [...]
[2023-07-22 16:17] VITALS: PULSE 83; O2SAT 97
[2023-07-22 16:22] VITALS: RESP 16; TEMP 37
[2023-07-22 16:29] VITALS: BP 138/73; PULSE 74
[2023-07-22 16:44] VITALS: BP 129/70; PULSE 77
[2023-07-22] MEDS: ACETAMINOPHEN 500 MG TABLET 1000 MG PO (17:14)
[2023-07-22 19:28] LABS: Appearance Urine Clear (Clear); Bilirubin Urine Negative (Negative); Blood Urine Negative (Negative); Color Urine Yellow (Yellow); Glucose Urine Negative (Negative); Ketones Urine Negative (Negative); Leukocyte Esterase Urine Negative (Negative); Nitrite Urine Negative (Negative); Protein Urine Negative (Negative); Urobilinogen Urine 0.2 (0.2-1.0)
[2023-07-22 19:38] LABS: Amnisure Rom* Negative
[2023-07-22 19:39] LABS: Clue Cells No Clue Cells Seen (None Seen); Trichomonas No Trichomonas Seen (None Seen); Yeast No Yeast Seen (None Seen)
--- NOTE | 2023-07-22 20:29 | PC.OBNST ---
The provider's electronic signature indicates the NST is reactive/appropriate for gestational age. *Note to provider: If an addendum is required, open the patient's chart and click on the note under the Nurse/Allied Health tab.
[2023-07-23 16:32] LABS: Strep B DNA Probe Negative (Negative)
[2023-07-23 16:39] LABS: Strep B Susceptibility Needed? No
--- NOTE | 2023-07-25 11:54 | PC.OBNST ---
NST Note NST Note Start: 07/22/23 16:06 Freq: ONCE Status: Discharge Protocol: Document 07/22/23 20:26 BRYesi (Rec: 07/22/23 20:30 BRYesi [id number]) NST Note 5 Para (# of births) 4 EDC 08/23/23 Gestational Age In Weeks & Days 35 Weeks & 3 Days High Risk Factors Diabetes - Gestational Insulin Patient Presented with Complaint(s) of Other Other Complaints Complaints of upper abdominal pain/pressure that comes and goes but is not consistant. Reactive Yes Appropriate for Gestational Age Yes GAVI Mattson RN Date 07/22/23 Reactive Yes Appropriate for Gestational Age Yes GAVI Mike RN Date 07/22/23 OB NST charge Yes Complete NST Note via Write Note Yes 07/22/23 20:29 NST Documentation by Ashly Mike The provider's electronic signature indicates the NST is reactive/appropriate for gestational age. *Note to provider: If an addendum is required, open the patient's chart and click on the note under the Nurse/Allied Health tab. Initialized on 07/22/23 20:29 - END OF NOTE The provider's electronic signature indicates the NST is reactive/appropriate for gestational age. *Note to provider: If an addendum is required, open the patient's chart and click on the note under the Nurse/Allied Health tab.
== END 2023-07-22 20:11 | disposition home or self-care (01) ==
LOC: OB OUT 16:02 → OB 16:02
PROVIDERS: Visit Provider Obstetrics & Gynecology
DX: Z34.93 Encounter for supervision of normal pregnancy, unspecified, third trimester (principal); Z3A.35 35 weeks gestation of pregnancy
CPT/HCPCS: 59025; 81003; 82962; 84112; 87081; 87210; 87653; G0463; A9270

== ENCOUNTER 2023-08-03 16:02 | Inpatient (IN) | payer BC, SELFPAY ==
--- OUTSIDE RECORDS SUMMARY | 2023-08-03 16:10 | XMS_ITS | Encounter Summary ---
Author Name Unknown Organization [facility] Address [address] [place] [address] Care Team Providers Care Big Data Lead Name Role Phone Elsewhere, Pcp Primary Care [...] CDT - 09/17/2022 1:26 PM CDT Emergency [facility] [address] [place] [address] Mark Mallory M.D. [address] [place] [address] Pain Chest (Primary Dx) Discharge [...] Body Mass Index 23.89 05/19/2022 1:41 PM SUPERVISOR PAYROLL documented in this encounter Medications at Time [...] or fever. 90 tablet 0 10/30/2021 omega 7-acs-mdr-fish oil 1,000 mg (120 mg-180 mg) capsule [...] CDT Mark Mallory M.D. LAB BLOOD [facility] [address] [place] [address], [facility] NPRG [facility] [address] [place] [address] * Basic Metabolic Panel (09/17/2022 11:29 AM [...] CDT Mark Mallory M.D. LAB BLOOD ADD-ON [facility] [address] [place] [address], [facility] NPRG [facility] [address] [place] [address] * CBC without Differential (09/17/2022 11:29 AM [...] CDT Mark Mallory M.D. LAB BLOOD ADD-ON [facility] [address] [place] [address], [facility] NPRG [facility] [address] [place] [address] * ECG 12 Lead (09/17/2022 11:23 AM CDT) Ventricular Rate ECG/Min 101 BPM MUSE MS Interval 146 ms MUSE QRSD Interval 78 ms MUSE QT Interval 320 ms MUSE QTC Interval 414 ms MUSE P [place] 79 degrees MUSE R [place] 53 degrees MUSE T Wave [place] 57 degrees MUSE 09/17/2022 11:2 3 AM [...] Primary documented in this encounter Care Teams Big Data Lead Relationship Specialty Start Date End Date Elsewhere, Pcp PCP - General Internal Medicine 09/17/22 documented as of this encounter
--- OUTSIDE RECORDS SUMMARY | 2023-08-03 16:10 | XMS_ITS ---
Author Name Unknown Organization [facility] Address [address] [place] [address] Care Team Providers Care Appointment Scheduler Name Role Phone Unavailable Unavailable Unavailable Surgery Details Not on file Complications Check Surgery Details section. Procedure Estimated Blood Loss Check Surgery Details section. Procedure Findings Check Surgery Details section. Procedure Specimens Taken Check Surgery Details section.
--- OUTSIDE RECORDS SUMMARY | 2023-08-03 16:10 | XMS_ITS | Encounter Summary ---
Author Name Unknown Organization [facility] Address [address] [facility] [place] [address] Care Team Providers Care Emotionally Impaired Teacher Name Role Phone Laureano Bennett MD Primary Care Provider [phone] Laureano Bennett MD Unavailable [phone] Unavailable [phone] Reason for Visit * Reason Comments Ultrasound RL2/BPP- GDMA2, Hx o f term stillbirth Encounter Details Date Type Department Care Team (Late st Contact Info) Description 07/29/2023 12:15 PM COMMUNITY PRODUCT SPECIALIST Office Visit [facility] [place] [address] [facility] [address] [place] [address] Jennifer Boyer MD [address] [address] [place] [address] History of stillbirth in currently patient, third trimester (Primary Dx) Social History Tobacco [...] Progress Notes * Jennifer Boyer MD - 07/29/2023 12:15 PM CST Please see the imaging tab for details of the ultrasound performed today. Jennifer Boyer MD Specialist in Maternal- Medicine UNITY PRODUCT SPECIALIST documented in this encounter Nursing Notes * Beatriz Pro RN - 07/29/2023 12:15 PM CST Patient reports movement, denies pain, contractions, leaking of fluid, or bleeding. Reports blood sugar values are elevated at times. Insulin increased to 21units. Patient denies headache, visual changes, nausea/vomiting, epigastric pain related to preeclampsia. Patient has transferred care to [facility] with Dr Salazar for a waterbirth. IOL scheduled at 37wks on 08/03/23. ROBERT signedto send report to [place]. SBAR given to MARYAM MAYERS, see their note in Epic. UNITY PRODUCT SPECIALIST documented in this encounter Plan of Treatment Upcoming Encounters Date Type Department Care Team (Late st Contact Info) Description 08/23/2023 Hospital Encounter [facility] [address] [place] [address] Laureano Bennett MD [address] [place] [id number] documented as of this encounter Visit Diagnoses Diagnosis History of stillbirth in currently patient, third trimester- Primary documented in this encounter Additional Health Concerns Assessment Noted Time PHQ-9 Depression Total Score: 0 05/17/20 9:06 AM COMMUNITY PRODUCT SPECIALIST documented as of this encounter Care Teams Emotionally Impaired Teacher Relationship Specialty Start Date End Date Laureano Bennett MD [address] [place] [address] PCP - General Family Medicine 07/07/20 Laureano Bennett MD [address] [place] [address] Assigned PCP 08/14/[address] [place] [address] Gang Punch Operator Dietitian, Registered 06/14/23 documented as of this encounter
--- OUTSIDE RECORDS SUMMARY | 2023-08-03 16:10 | XMS_ITS | Referral Summary ---
Author Name Unknown [facility] Address [address] [place] [id number] Care Team Providers Care Food Sanitarian Name Role Phone Renee Bennett MD Primary Care Provider Renee Bennett MD Unavailable [phone] Unavailable [phone] Encounters Date Type Department Care Team Description 07/29/2023 Travel 07/29/2023 12:15 PM FILLING MACHINE OPERATOR Office Visit [facility] [place] [address] [facility] [address] [facility] [address] [place] [address] Jennifer Boyer MD History of stillbirth in currently patient, third trimester (Primary Dx) 07/29/2023 11:45 AM FILLING MACHINE OPERATOR - 07/29/2023 11:59 PM FILLING MACHINE OPERATOR Hospital Encounter [facility] [address] [facility] [address] [facility] [address] [place] [address] Jennifer Boyer MD Gestational diabetes mellitus (GDM) in third trimester controlled on oral hypoglycemic drug; Prior with demise and current in third trimester Discharge Disposition: Home or Self Care 07/26/2023 Travel 07/26/2023 8:30 AM FILLING MACHINE OPERATOR Office Visit [facility] [address] [facility] [address] [facility] [address] [place] [address] Rayshawn Nunez MD Insulin controlled gestational diabetes mellitus (GDM) in third trimester (Primary Dx); History of IUFD 07/26/2023 8:00 AM FILLING MACHINE OPERATOR - 07/26/2023 11:59 PM FILLING MACHINE OPERATOR Hospital Encounter [facility] [place] [address] [place] [phone] Rayshawn Nunez MD Gestational diabetes mellitus (GDM) in third trimester controlled on oral hypoglycemic drug; Prior with demise and current in third trimester Discharge Disposition: Home or Self Care 07/22/2023 Travel 07/22/2023 9:15 AM FILLING MACHINE OPERATOR Office Visit [facility] [place] [address] [place] [phone] Sheila Jones MD Insulin controlled gestational diabetes mellitus (GDM) in third trimester (Primary Dx); History of IUFD 07/22/2023 8:45 AM FILLING MACHINE OPERATOR - 07/22/2023 11:59 PM FILLING MACHINE OPERATOR Hospital Encounter [facility] [place] [address] [facility] [address] [place] [phone] Sheila Jones MD Gestational diabetes mellitus (GDM) in third trimester controlled on oral hypoglycemic drug; Prior with demise and current in third trimester Discharge Disposition: Home or Self Care 07/19/2023 4:40 PM FILLING MACHINE OPERATOR Office Visit [address] [phone] Renee Bennett MD Encounter for supervision of other normal in third trimester (Primary Dx); 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 07/18/2023 Travel 07/18/2023 4:00 PM FILLING MACHINE OPERATOR Office Visit [facility] [place] [address] [facility] [address] [place] [phone] Jennifer Boyer MD Rauk, Tyshawn Flor MD Insulin controlled gestational diabetes mellitus (GDM) in third trimester (Primary Dx) 07/18/2023 3:30 PM FILLING MACHINE OPERATOR - 07/18/2023 11:59 PM FILLING MACHINE OPERATOR Hospital Encounter [facility] [place] [address] [facility] [address] [place] [phone] Jennifer Boyer MD Rauk, Tyshawn Flor MD Gestational diabetes mellitus (GDM) in third trimester controlled on oral hypoglycemic drug; Prior with demise and current in third trimester Discharge Disposition: Home or Self Care 07/15/2023 Travel 07/15/2023 12:15 PM FILLING MACHINE OPERATOR Office Visit [facility] [place] [address] [place] [phone] Rosemary Cheema MD Insulin controlled gestational diabetes mellitus (GDM) in third trimester (Primary Dx); Prior with demise and current in third trimester 07/15/2023 11:40 AM FILLING MACHINE OPERATOR - 07/15/2023 11:59 PM FILLING MACHINE OPERATOR Hospital Encounter [facility] [place] [address] [facility] [address] [place] [phone] Rosemary Cheema MD Gestational diabetes mellitus (GDM) in third trimester controlled on oral hypoglycemic drug; Prior with demise and current in third trimester Discharge Disposition: Home or Self Care 07/15/2023 8:40 AM FILLING MACHINE OPERATOR Office Visit [address] [phone] Renee Bennett MD Encounter for supervision of other normal in second trimester (Primary Dx); Gestational diabetes mellitus (GDM), antepartum, gestational diabetes method of control unspecified 07/14/2023 Travel 2023 Travel 2023 8:30 AM FILLING MACHINE OPERATOR Office Visit [facility] [place] [address] [place] [phone] Rayshawn Nunez MD Insulin controlled gestational diabetes mellitus (GDM) in third trimester (Primary Dx) 2023 8:00 AM FILLING MACHINE OPERATOR - 2023 11:59 PM FILLING MACHINE OPERATOR Hospital Encounter [facility] [place] [address] [place] [address] Rayshawn Nunez MD Gestational diabetes mellitus (GDM) in third trimester controlled on oral hypoglycemic drug; Prior with demise and current in third trimester Discharge Disposition: Home or Self Care 07/08/2023 Travel 07/08/2023 Telephone [facility] [address] [facility] [address] [place] [address] Chyna Garcia RN Decreased Movement 07/08/2023 Telephone [facility] [address] [facility] [address] [place] [address] Chyna Garcia RN Decreased Movement 07/08/2023 4:10 PM FILLING MACHINE OPERATOR - 07/08/2023 5:05 PM FILLING MACHINE OPERATOR Hospital Encounter [facility] [address] [place] [address] Renee Bennett MD Discharge Disposition: Home or Self Care 07/06/2023 Travel 07/06/2023 4:00 PM FILLING MACHINE OPERATOR Office Visit [facility] [address] [facility] [address] [place] [phone] Tyshawn Mccurdy MD Gestational diabetes mellitus (GDM) in third trimester controlled on oral hypoglycemic drug (Primary Dx); Prior with demise and current in third trimester 07/06/2023 3:30 PM FILLING MACHINE OPERATOR - 07/06/2023 11:59 PM FILLING MACHINE OPERATOR Hospital Encounter [facility] [address] [facility] [address] [place] [phone] Tyshawn Mccurdy MD Gestational diabetes mellitus (GDM) in third trimester controlled on oral hypoglycemic drug; Prior with demise and current in third trimester Discharge Disposition: Home or Self Care 07/04/2023 Travel 07/04/2023 4:00 PM FILLING MACHINE OPERATOR Office Visit [facility] [address] [facility] [address] [place] [address] Rosemary Cheema MD Gestational diabetes mellitus (GDM) in third trimester controlled on oral hypoglycemic drug (Primary Dx) 07/04/2023 3:15 PM FILLING MACHINE OPERATOR - 07/04/2023 11:59 PM FILLING MACHINE OPERATOR Hospital Encounter [facility] [place] [address] [place] [phone] Rosemary Cheema MD Gestational diabetes mellitus (GDM) in third trimester controlled on oral hypoglycemic drug; Prior with demise and current in third trimester Discharge Disposition: Home or Self Care 07/04/2023 8:20 AM FILLING MACHINE OPERATOR Office Visit [address] [phone] Renee Bennett MD Encounter for supervision of other normal in second trimester (Primary Dx); Gestational diabetes mellitus (GDM), antepartum, gestational diabetes method of control unspecified; History of stillbirth 07/03/2023 Travel 07/01/2023 Travel 07/01/2023 8:30 AM FILLING MACHINE OPERATOR Office Visit [facility] [place] [address] [facility] [address] [place] [phone] Jennifer Boyer MD Gestational diabetes mellitus (GDM) in third trimester controlled on oral hypoglycemic drug (Primary Dx); Prior with demise and current in third trimester 07/01/2023 7:54 AM FILLING MACHINE OPERATOR - 07/01/2023 11:59 PM FILLING MACHINE OPERATOR Hospital Encounter [facility] [place] [address] [facility] [address] [place] [phone] Jennifer Boyer MD related condition, antepartum Discharge Disposition: Home or Self Care 06/22/2023 PRE VISIT [facility] [place] [address] [facility] [address] [place] [phone] Violette Zhou RN Ultrasound (L2-GDM) 06/21/2023 Transcribe Orders [facility] [place] [address] [facility] [address] [place] [phone] Renee Bennett MD related condition, antepartum (Primary Dx) 06/21/2023 Travel 06/21/2023 10:20 AM FILLING MACHINE OPERATOR Office Visit [address] [phone] Renee Bennett MD Gestational diabetes mellitus (GDM), antepartum, gestational diabetes method of control unspecified (Primary Dx) 06/14/2023 Travel 06/14/2023 10:45 AM FILLING MACHINE OPERATOR [facility] [address] [place] [address] LORRI Currie [phone] Gestational diabetes mellitus (GDM), antepartum, gestational diabetes method of control unspecified 06/10/[address] [address] Unknown, Provider Referral (No available appts for classes virtually for expected time of the referral) 06/03/2023 Travel 06/03/2023 8:00 AM FILLING MACHINE OPERATOR Office Visit [address] [phone] Renee Bennett MD , unspecified gestational age (Primary Dx); Varicose veins during ; Gestational diabetes mellitus (GDM), antepartum, gestational diabetes method of control unspecified 05/31/2023 Travel 05/31/2023 8:00 AM FILLING MACHINE OPERATOR Lab [facility] [address] [place] [phone] Elevated glucose 05/17/2023 Travel 05/17/2023 9:20 AM FILLING MACHINE OPERATOR Office Visit [address] [phone] Renee Bennett MD Encounter for supervision of [...] Reported on 04/08/2023 Continuous Blood Gluc Sensor (YagomartSTYLE DEREK 14 DAY SENSOR) MISCIndications: Gestational diabetes [...] 24 Discontinued(Sto pped by Patient (No AVS)) insulin lispro (HUMALOG KWIKPEN) 100 UNIT/ML (1 [...] Comments Blood Pressure 110/58 07/19/2023 4:36 PM FILLING MACHINE OPERATOR Pulse 92 07/19/2023 4:36 PM FILLING MACHINE OPERATOR Temperature 36.1 ??C (97 ??F) 07/19/2023 4:36 PM FILLING MACHINE OPERATOR Respiratory Rate 16 07/15/2023 8:48 AM FILLING MACHINE OPERATOR Oxygen Saturation 97% 07/19/2023 4:36 PM FILLING MACHINE OPERATOR Inhaled Oxygen Concentration - - Weight 82.1 kg (181 lb) 07/19/2023 4:36 PM FILLING MACHINE OPERATOR Height 174 cm (5' 8.5) 07/15/2023 8:48 AM FILLING MACHINE OPERATOR Body Mass Index 27.12 07/15/2023 8:48 AM FILLING MACHINE OPERATOR Plan of Treatment Upcoming Encounters Date Type Department Care Team (Late st Contact Info) Description 08/23/[address] [facility] [address] [place] [address] Renee Bennett MD [address] [place] [address] Procedures Procedure Name Priority Date/Time Associated Diagnosis Comments [facility] SINGLE F/U Routine 07/29/2023 1:32 PM FILLING MACHINE OPERATOR Gestational diabetes mellitus (GDM) in third trimester controlled on oral hypoglycemic drug Prior with demise and current in third trimester [facility] BP SINGLE Routine 07/26/2023 8:15 AM FILLING MACHINE OPERATOR Gestational diabetes mellitus (GDM) in third trimester controlled on oral hypoglycemic drug Prior with demise and current in [facility] Routine 07/22/2023 9:10 AM FILLING MACHINE OPERATOR Gestational diabetes mellitus (GDM) in third trimester controlled on oral hypoglycemic drug Prior with demise and current in third trimester GLUCOSE ALBUMIN OB URINE Routine 07/19/2023 4:28 PM FILLING MACHINE OPERATOR Encounter for supervision of other normal in third trimester [facility] Routine 07/18/2023 3:55 PM FILLING MACHINE OPERATOR Gestational diabetes mellitus (GDM) in third trimester controlled on oral hypoglycemic drug Prior with demise and current in third trimester [facility] BP SINGLE Routine 07/15/2023 12:07 PM FILLING MACHINE OPERATOR Gestational diabetes mellitus (GDM) in third trimester controlled on oral hypoglycemic drug Prior with demise and current in third trimester GLUCOSE ALBUMIN OB URINE Routine 07/15/2023 8:30 AM FILLING MACHINE OPERATOR Encounter for supervision of other normal in second trimester [facility] SINGLE Routine 2023 8:41 AM FILLING MACHINE OPERATOR Gestational diabetes mellitus (GDM) in third trimester controlled on oral hypoglycemic drug Prior with demise and current in third trimester NON-STRESS TEST - HIM SCAN 07/08/2023 12:00 AM FILLING MACHINE OPERATOR [facility] SINGLE Routine 07/06/2023 3:49 PM FILLING MACHINE OPERATOR Gestational diabetes mellitus (GDM) in third trimester controlled on oral hypoglycemic drug Prior with demise and current in third trimester [facility] SINGLE Routine 07/04/2023 3:38 PM FILLING MACHINE OPERATOR Gestational diabetes mellitus (GDM) in third trimester controlled on oral hypoglycemic drug Prior with demise and current in third trimester BETA 2 GLYCOPROTEIN ANTIBODIES IGG IGM Routine 07/04/2023 9:42 AM FILLING MACHINE OPERATOR History of stillbirth CARDIOLIPIN BRENDEN IGG AND IGM Routine 07/04/2023 9:42 AM FILLING MACHINE OPERATOR History of stillbirth LUPUS ANTICOAGULANT PANEL Routine 07/04/2023 9:42 AM FILLING MACHINE OPERATOR History of stillbirth GLUCOSE ALBUMIN OB URINE Routine 07/04/2023 8:20 AM FILLING MACHINE OPERATOR Encounter for supervision of other normal in second trimester [facility] SINGLE Routine 07/01/2023 8:44 AM FILLING MACHINE OPERATOR related condition, antepartum GLUCOSE ALBUMIN OB URINE Routine 06/03/2023 8:42 AM FILLING MACHINE OPERATOR , unspecified gestational age GESTATIONAL GLUCOSE TOLERANCE TESTING, 3 HOUR Routine 05/31/2023 11:21 AM FILLING MACHINE OPERATOR Elevated glucose GESTATIONAL GLUCOSE TOLERANCE TESTING, 2 HOUR Routine 05/31/2023 10:14 AM FILLING MACHINE OPERATOR Elevated glucose GESTATIONAL GLUCOSE TOLERANCE TESTING, 1 HOUR Routine 05/31/2023 9:17 AM FILLING MACHINE OPERATOR Elevated glucose GESTATIONAL GLUCOSE TOLERANCE TESTING, 3 HOUR Routine 05/31/2023 8:00 AM FILLING MACHINE OPERATOR Elevated glucose GESTATIONAL GLUCOSE TOLERANCE TESTING, FASTING Routine 05/31/2023 8:00 AM FILLING MACHINE OPERATOR Elevated glucose GLUCOSE ALBUMIN OB URINE Routine 05/17/2023 1:19 PM FILLING MACHINE OPERATOR Encounter for supervision of other normal in second trimester GLUCOSE TOLERANCE GEST SCREEN 1 HOUR Routine 05/17/2023 10:39 AM FILLING MACHINE OPERATOR Encounter for supervision of other normal in second trimester FERRITIN Routine 05/17/2023 10:29 AM FILLING MACHINE OPERATOR Encounter for supervision of other normal in second trimester OB HEMOGLOBIN Routine 05/17/2023 10:29 AM FILLING MACHINE OPERATOR Encounter for supervision of other normal in second trimester TSH WITH FREE T4 REFLEX Routine 05/17/2023 10:29 AM FILLING MACHINE OPERATOR Encounter for supervision of other normal in second trimester VITAMIN D DEFICIENCY SCREENING Routine 05/17/2023 10:29 AM FILLING MACHINE OPERATOR Encounter for supervision of other normal in second trimester from Last 3 Months Results * Maternal US Comprehensive Single F/U (07/29/2023 1:32 PM FILLING MACHINE OPERATOR) Anatomical Region Laterality Modality Ultrasound 07/29/2023 11:4 6 AM FILLING MACHINE OPERATOR Impressions 07/29/2023 1:43 PM FILLING MACHINE OPERATOR IMPRESSION ----- 1) [place] intrauterine at 36w 3d gestational age. 2) None of the anomalies commonly detected by ultrasound were evident in the anatomic survey described above. 3) Growth parameters and estimated weight were consistent with an appropriate for gestation age pattern of growth. 4) The amniotic fluid volume appeared normal. 5) The BPP was reassuring. Narrative 07/29/2023 1:43 PM FILLING MACHINE OPERATOR ?Comp Follow Up ----- Pat. Name: YU LOGAN ? Study Date: ??07/29/2023 11:46am Pat. NO: ??[id number] ?Referring ??MD: ABIDA ROMERO Site: [facility] ? Pantomimist: Dhara Chase RDMS : ??1995 ?Age: ?? 28 ----- INDICATION ----- Gestational Diabetes (GDM) - on Insulin History of term IUFD METHOD ----- Transabdominal ultrasound examination. View: Sufficient. ----- [place] . Number of fetuses: 1 DATING ----- ? Date ?Details ?Gest. age ?[place] LMP ?11/16/2022 ?Cycle: regular cycle ?36 w + 3 d ? 08/23/2023 Prior assessment ? 01/05/2023 ? GA: 7 w + 1 d ?36 w + 3 d ? 08/23/2023 U/S ? 07/29/2023 ?based upon AC, BPD, Femur, HC ? 35 w + 6 d ? 08/27/2023 Assigned dating ?Dating performed on 07/29/2023, based on the LMP ?36 w + 3 d ? 08/23/2023 GENERAL EVALUATION ----- Cardiac activity present. FHR 137 bpm. movements present. Presentation cephalic. Placenta Anterior. Umbilical cord 3 vessel cord . Amniotic fluid Amount of AF: normal amount. MVP 5.5 cm. BIOMETRY ----- Main Biometry: BPD ?86.9 ?mm ? 35w 1d ?Hadlock OFD ?110.6 ?mm ?33w 2d ?Nicolaides HC ?313.7 ?mm ?35w 1d ?Hadlock Cerebellum tr ?50.8 ? mm ?-/- ?Nicolaides AC ?327.3 ?mm ?36w 4d ?68% ?Hadlock Femur ?71.3 ? mm ?36w 4d ?Hadlock Humerus ?62.5 ?mm ? 36w 1d ?Randell Weight Calculation: EFW ? 2,894 ?g ? 49% ?Hadlock EFW (lb,oz) ? 6 lb 6 ?oz EFW by ?Hadlock ([id number]) Head / Face / Neck Biometry: Director Of Cardiology Service Line ? 4.1 ? mm CM ?6.8 ? mm ANATOMY ----- The following structures appear normal: Head / Neck ? Cranium. Head size. Head shape. Lateral ventricles. Midline falx. Cavum septi pellucidi. Cerebellum. Cisterna magna. Thalami. Face ? Lips. Profile. Nose. Maxilla. Mandible. Orbits. Lens. Heart / Thorax ?4-chamber view. RVOT view. LVOT view. Aortic arch view. Bicaval view. 4-ihkony-tiqrmjc view. ? Diaphragm. Abdomen ? Stomach. Kidneys. Bladder. Spine ?Cervical spine. Thoracic spine. Lumbar spine. Sacral spine. Extremities / Skeleton ?Right hand. Gender: female. BIOPHYSICAL PROFILE ----- 2: breathing movements 2: Gross body movements 2: tone 2: Amniotic fluid volume 01/25 Biophysical profile score Interpretation: normal MATERNAL STRUCTURES ----- Cervix ?Visualized ? Appearance: Appears Closed ? Approach - Transabdominal: Cervical length 57.1 mm Right Ovary ?Not examined Left Ovary ?Not examined RECOMMENDATION ----- We discussed the findings on today's ultrasound with the patient. Continue surveillance weekly until delivery. Delivery is scheduled on 08/03/2023. Return to primary provider for continued care. Thank-you for the opportunity to participate in the care of this patient. If you have questions regarding today's evaluation or if we can be of further service, please contact the [facility] Center. anomalies may be present but not detected Procedure Note Jennifer Boyer MD - 07/29/2023 Comp Follow Up ----- Pat. Name: YU LOGAN Study Date: 07/29/2023 11:46am Pat. NO: [id number] Referring MD: ABIDA ROMERO Site: [facility] Pantomimist: Dhara Chase RDMS : 1995 Age: 28 ----- INDICATION ----- Gestational Diabetes (GDM) - on Insulin History of term IUFD METHOD ----- Transabdominal ultrasound examination. View: Sufficient. ----- [place] . Number of fetuses: 1 DATING ----- DateDetailsGest. age [place] LMP 11/16/2022ycle: regular cycle36 w + 3 d 08/23/2023 Prior assessment 01/05/2023 GA: 7 w +1 d36 w + 3 d 08/23/2023 U/S 07/29/2023ased upon AC, BPD, Femur, HC35 w + 6 d 08/27/2023 Assigned dating Dating performed on 07/29/2023, based onthe LMP 36 w+ 3 d 08/23/2023 GENERAL EVALUATION ----- Cardiac activity present. FHR 137 bpm. movements present. Presentation cephalic. Placenta Anterior. Umbilical cord 3 vessel cord . Amniotic fluid Amount of AF: normal amount. MVP 5.5 cm. BIOMETRY ----- Main Biometry: BPD 86.9 mm35w 1d Hadlock OFD 110.6 mm33w 2d Nicolaides HC 313.7 mm35w 1d Hadlock Cerebellum tr 50.8 mm-/- Nicolaides AC 327.3 mm36w 4d 68% Hadlock Femur 71.3 mm36w 4d Hadlock Humerus 62.5 mm36w 1d Randell Weight Calculation: EFW 2,894 g49% Hadlock EFW (lb,oz) 6 lb 6 oz EFW by Hadlock ([id number]) Head / Face / Neck Biometry: Director Of Cardiology Service Line 4.1 mm CM 6.8 mm ANATOMY ----- The following structures appear normal: Head / Neck Cranium. Head size. Head shape.Lateral ventricles. Midline falx. Cavum septi pellucidi. Cerebellum.Cisterna magna. Thalami. Face Lips. Profile. Nose. Maxilla.Mandible. Orbits. Lens. Heart / Thorax 4-chamber view. RVOT view. LVOT view.Aortic arch view. Bicaval view. 0-vvouhh-wowqewb view. Diaphragm. Abdomen Stomach. Kidneys. Bladder. Spine Cervical spine. Thoracic spine.Lumbar spine. Sacral spine. Extremities / Skeleton Right hand. Gender: female. BIOPHYSICAL PROFILE ----- 2: breathing movements 2: Gross body movements 2: tone 2: Amniotic fluid volume 01/25 Biophysical profile score Interpretation: normal MATERNAL STRUCTURES ----- Cervix Visualized Appearance: Appears Closed Approach - Transabdominal:Cervical length 57.1 mm Right Ovary Not examined Left Ovary Not examined RECOMMENDATION ----- We discussed the findings on today's ultrasound with the patient. Continue surveillance weekly until delivery. Delivery isscheduled on 08/03/2023. Return to primary provider for continued care. Thank-you for the opportunity to participate in the care of this patient.If you have questions regarding today's evaluation or if we can be offurther service, please contact the Maternal- Medicine Center. anomalies may be present but not detected IMPRESSION ----- 1) [place] intrauterine at 36w 3d gestational age. 2) None of the anomalies commonly detected by ultrasound were evident inthe anatomic survey described above. 3) Growth parameters and estimated weight were consistent with anappropriate for gestation age pattern of growth. 4) The amniotic fluid volume appeared normal. 5) The BPP was reassuring. Jennifer Boyer MD [facility] US ORDERAB LES * Maternal BPP Single (07/26/2023 8:15 AM FILLING MACHINE OPERATOR) Only the most recent of7 resultswithin the time period is included. Anatomical Region Laterality Modality Ultrasound 07/26/2023 7:52 AM FILLING MACHINE OPERATOR Impressions 07/26/2023 8:17 AM FILLING MACHINE OPERATOR IMPRESSION ----- 1. [place] intrauterine at 36w 0d gestational age here for testing. 2. The fetus is in cephalic presentation. The amniotic fluid volume is normal. 3. The BPP is 88. Narrative 07/26/2023 8:17 AM FILLING MACHINE OPERATOR ?BPP ----- Pat. Name: YU LOGAN ? Study Date: ??07/26/2023 7:52am Pat. NO: ??[id number] ?Referring ??MD: RENEE BENNETT Site: [facility] ? Pantomimist: Makeda Hassan RDMS : ??1995 ?Age: ?? 28 ----- INDICATION ----- Gestational Diabetes (GDM) - on Insulin History of term IUFD METHOD ----- Transabdominal ultrasound examination. View: Sufficient ----- [place] . Number of fetuses: 1 DATING ----- ? Date ?Details ?Gest. age ?[place] LMP ?11/16/2022 ?Cycle: regular cycle ?36 w + 0 d ? 08/23/2023 Prior assessment ? 01/05/2023 ? GA: 7 w + 1 d ?36 w + 0 d ? 08/23/2023 Assigned dating ?Dating performed on 07/26/2023, based on the LMP ?36 w + 0 d ? 08/23/2023 GENERAL EVALUATION ----- Cardiac activity present. FHR 149 bpm. movements visualized. Presentation cephalic. Placenta Anterior. Umbilical cord previously studied. AMNIOTIC FLUID ASSESSMENT ----- Amount of AF: normal MVP 3.2 cm BIOPHYSICAL PROFILE ----- 2: breathing movements 2: Gross body movements 2: tone 2: Amniotic fluid volume 8/8 Biophysical profile score Interpretation: normal RECOMMENDATION ----- Continue with twice weekly BPPs until delivery. Patient is contemplating an early term delivery given history. We support delivery at/after 37 weeks given her OB history. Procedure Note Rayshawn Nunez MD - 07/26/2023 BPP ----- Pat. Name: YU LOGAN Study Date: 07/26/2023 7:52am Pat. NO: [id number] Referring MD: RENEE BENNETT Site: [facility] Pantomimist: Makeda Hassan RDMS : 1995 Age: 28 ----- INDICATION ----- Gestational Diabetes (GDM) - on Insulin History of term IUFD METHOD ----- Transabdominal ultrasound examination. View: Sufficient ----- [place]um[place] . Number of fetuses: 1 DATING ----- DateDetailsGest. age [place] LMP 11/16/2022ycle: regular cycle36 w + 0 d 08/23/2023 Prior assessment 01/05/2023 GA: 7 w +1 d36 w + 0 d 08/23/2023 Assigned dating Dating performed on 07/26/2023, based onthe LMP 36 w+ 0 d 08/23/2023 GENERAL EVALUATION ----- Cardiac activity present. FHR 149 bpm. movements visualized. Presentation cephalic. Placenta Anterior. Umbilical cord previously studied. AMNIOTIC FLUID ASSESSMENT ----- Amount of AF: normal MVP 3.2 cm BIOPHYSICAL PROFILE ----- 2: breathing movements 2: Gross body movements 2: tone 2: Amniotic fluid volume 8 Biophysical profile score Interpretation: normal RECOMMENDATION ----- Continue with twice weekly BPPs until delivery. Patient is contemplating an early term delivery given history. We supportdelivery at/after 37 weeks given her OB history. IMPRESSION ----- 1. Brumfield intrauterine at 36w 0d gestational age here forantenatal testing. 2. The fetus is in cephalic presentation. The amniotic fluid volume isnormal. 3. The BPP is 8/8. Jennifer Boyer MD [facility] US ORDERAB LES * Glucose and albumin, OB urine (07/19/2023 4:28 PM FILLING MACHINE OPERATOR) Only the most recent of5 resultswithin the time period is included. Protein Albumin Urine Negative Negative mg/dL 07/19/2023 4:30 PM FILLING MACHINE OPERATOR [facility] Glucose Urine Negative Negative mg/dL 07/19/2023 4:30 PM FILLING MACHINE OPERATOR [facility] Urine MID-STREAM URINE SPECIMEN / Unknown Non-blood Collection / Unknown 07/19/2023 4:28 PM FILLING MACHINE OPERATOR 07/19/2023 4:28 PM FILLING MACHINE OPERATOR Renee Bennett MD LAB - URINE ORDERABL ES LABORATORY [facility] [address] [place] [address] Lab (no room number, 1st floor of clinic) [place] [address], [facility] [phone] * NON-STRESS TEST - HIM SCAN (07/08/2023 12:00 AM FILLING MACHINE OPERATOR) 07/08/2023 Provider Outside PROCEDURES * Cardiolipin Brenden IgG and IgM (07/04/2023 9:42 AM FILLING MACHINE OPERATOR) Cardiolipin Brenden IgG Instrument Value <2.0 <10.0 GPL-U/mL 07/06/2023 11:27 AM FILLING MACHINE OPERATOR SPECIALTY CORE/PROT/END O Cardiolipin Antibody IgG Negative Negative 07/06/2023 11:27 AM FILLING MACHINE OPERATOR SPECIALTY CORE/PROT/END O Cardiolipin Brenden IgM Instrument Value 2.2 <10.0 MPL-U/mL 07/06/2023 11:27 AM FILLING MACHINE OPERATOR SPECIALTY CORE/PROT/END O Cardiolipin Antibody IgM Negative Negative 07/06/2023 11:27 AM FILLING MACHINE OPERATOR SPECIALTY CORE/PROT/END O Blood BLOOD SPECIMEN / Unknown Venipuncture / Unknown 07/04/2023 9:42 AM FILLING MACHINE OPERATOR 07/04/2023 9:43 AM FILLING MACHINE OPERATOR Renee Bennett MD LAB - BLOOD ORDERABL ES UM SPECIALTY CORE/PROT/ENDO UM Specialty Core/Prot/Endo [address] [facility], [address] [phone] * Beta 2 Glycoprotein Antibodies IGG IGM (07/04/2023 9:42 AM FILLING MACHINE OPERATOR) Beta 2 Glycoprotein 1 Antibody IgG 1.0 <7.0 U/mL 07/06/2023 11:27 AM FILLING MACHINE OPERATOR UM SPECIALTY CORE/PROT/END O Comment:Negative Beta 2 Glycoprotein 1 Antibody IgM 3.3 <7.0 U/mL 07/06/2023 11:27 AM FILLING MACHINE OPERATOR SPECIALTY CORE/PROT/END O Comment:Negative Blood BLOOD SPECIMEN / Unknown Venipuncture / Unknown 07/04/2023 9:42 AM FILLING MACHINE OPERATOR 07/04/2023 9:43 AM FILLING MACHINE OPERATOR Renee Bennett MD LAB - BLOOD ORDERABL ES Performing Organization Address City/State/[facility] Co de Phone Number UM SPECIALTY CORE/PROT/ENDO Specialty Core/Prot/Endo [address] [facility], [address] [phone] * Lupus Anticoagulant Panel (07/04/2023 9:42 AM FILLING MACHINE OPERATOR) INR 1.04 0.85 - 1.15 4 4:15 PM FILLING MACHINE OPERATOR UM SPECIAL COAGULATION Thrombin Time 17.0 13.0 - 19.0 Seconds 4 4:15 PM FILLING MACHINE OPERATOR UM SPECIAL COAGULATION PTT Ratio 0.97 <1.21 4 4:15 PM FILLING MACHINE OPERATOR UM SPECIAL COAGULATION DRVVT Screen Ratio 0.91 <1.08 4 4:15 PM FILLING MACHINE OPERATOR [facility] SPECIAL COAGULATION Lupus Result Negative Negative 4 4:15 PM FILLING MACHINE OPERATOR [facility] SPECIAL COAGULATION Lupus Interpretation The INR is normal. APTT ratio is normal. ?? DRVVT Screen ratio is normal. Thrombin time is normal. NEGATIVE TEST; A LUPUS ANTICOAGULANT WAS NOT DETECTED IN THIS SPECIMEN WITHIN THE LIMITS OF THE TESTING REPERTOIRE. If the clinical picture is strongly suggestive of an antiphospholipid syndrome, recommend anticardiolipin and nvhu-9-zkrvtxlojvc n (IgG and IgM) antibody tests. Salina James MD, PhD [facility] 4:15 PM FILLING MACHINE OPERATOR UM SPECIAL COAGULATION Blood BLOOD SPECIMEN / Unknown Venipuncture / Unknown 07/04/2023 9:42 AM FILLING MACHINE OPERATOR 07/04/2023 9:43 AM FILLING MACHINE OPERATOR Renee Bennett MD LAB - BLOOD ORDERABL ES SPECIAL COAGULATION UM Special Coagulation [address] [facility], [address] [place] [id number], [facility] [phone] * [facility] Comprehensive Single (07/01/2023 8:44 AM FILLING MACHINE OPERATOR) Anatomical Region Laterality Modality Ultrasound 07/01/2023 7:55 AM FILLING MACHINE OPERATOR Impressions 07/01/2023 10:53 AM FILLING MACHINE OPERATOR IMPRESSION ----- 1) Brumfield intrauterine [...] BPP was reassuring. Narrative 07/01/2023 10:53 AM FILLING MACHINE OPERATOR ?Comprehensive ----- Pat. Name: YU LOGAN ? Study Date: ??07/01/2023 7:55am Pat. NO: ??[id number] ?Referring ??MD: RENEE BENNETT Site: ??[facility] ? Pantomimist: Kirstin Gold [facility] : ??1995 ?Age: ?? 27 ----- INDICATION [...] 4 lb 5 ?oz EFW by ?Hadlock ([id number]) Head / Face / Neck Biometry: Director Of Cardiology Service Line ? 6.3 ? mm CM ?8.5 ? [...] vena cava. Inferior vena cava. 3-vessel view. 6-sprrlg-oveaxuw view. ? Cardiac position. Cardiac size. Cardiac [...] the patient (reviewing medical records/tests), in direct cryy-ak-tqta contact with the patient during her visit with the majority spent counseling and discussing the plan of care and documenting the visit in the electronic medical record. Please see note for details. Procedure Note Jennifer Boyer MD - 07/01/2023 Comprehensive ----- Pat. Name: YU LOGAN Study Date: 07/01/2023 7:55am Pat. NO: [id number] Referring MD: RENEE BENNETT Site: [facility] Pantomimist: Kirstin Gold RDMS : 1995 Age: 27 [...] 4 lb 5 oz EFW by Hadlock ([id number]) Head / Face / Neck Biometry: Director Of Cardiology Service Line 6.3 mm CM 8.5 mm ANATOMY ----- The following structures appear normal: Head / Neck Cranium. Head size. Head shape.Lateral ventricles. Choroid plexus. Midline falx. Cavum septi pellucidi.Cerebellum. Cisterna magna. Parenchyma. Thalami. Vermis. Neck. Face Lips. Heart / Thorax 4-chamber view. RVOT view. LVOT view.Situs. Bicaval view. Superior vena cava. Inferior vena cava. 3-vesselview. 5-pfurbu-cuhcdyj view. Cardiac position. Cardiac size.Cardiac rhythm. Right [...] see the patient (reviewing medical records/tests), in ouzcxhhjef-xu-ygim contact with the patient during her visit [...] The BPP was reassuring. Renee Bennett MD [facility] S * Gestational Glucose Tolerance Testing, 3 Hour (05/31/2023 11:21 AM FILLING MACHINE OPERATOR) Gestational GTT 3 Hr Post Dose 110 60 - 139 mg/dL 06/02/2023 12:14 AM FILLING MACHINE OPERATOR [facility] Blood BLOOD SPECIMEN / Unknown Venipuncture / Unknown 05/31/2023 11:21 AM FILLING MACHINE OPERATOR 05/31/2023 11:21 AM FILLING MACHINE OPERATOR Narrative [facility] - 06/02/2023 12:14 AM FILLING MACHINE OPERATOR Blood glucose levels collected at [...] LAB - BLOOD ORDERABL ES [facility] Core Lab [address] [facility], [address] [place] [address], [facility] [phone] * (ABNORMAL) Gestational Glucose Tolerance Testing, 2 Hour (05/31/2023 10:14 AM FILLING MACHINE OPERATOR) Gestational GTT 2 Hr Post Dose 218(H) 60 - 154 mg/dL 06/01/2023 2:26 PM FILLING MACHINE OPERATOR [facility] Blood BLOOD SPECIMEN / Unknown Venipuncture / Unknown 05/31/2023 10:14 AM FILLING MACHINE OPERATOR 05/31/2023 10:14 AM FILLING MACHINE OPERATOR Renee Bennett MD LAB - BLOOD ORDERABL ES UR LABORATORY [facility] [address] [facility], [address] [place] [address], [facility] [phone] * (ABNORMAL) Gestational Glucose Tolerance Testing, 1 Hour (05/31/2023 9:17 AM FILLING MACHINE OPERATOR) Gestational GTT 1 Hr Post Dose 192(H) 60 - 179 mg/dL 05/31/2023 5:31 PM FILLING MACHINE OPERATOR [facility] Blood BLOOD SPECIMEN / Unknown Venipuncture / Unknown 05/31/2023 9:17 AM FILLING MACHINE OPERATOR 05/31/2023 9:17 AM FILLING MACHINE OPERATOR Renee Bennett MD LAB - BLOOD ORDERABL ES [facility] Lab [address] [facility], [address] [place] [address], [facility] [phone] * (ABNORMAL) Gestational Glucose Tolerance Testing, Fasting (05/31/2023 8:00 AM FILLING MACHINE OPERATOR) Gestational GTT Fasting 123(H) 60 - 94 mg/dL 05/31/2023 7:28 PM FILLING MACHINE OPERATOR [facility] Blood BLOOD SPECIMEN / Unknown Venipuncture / Unknown 05/31/2023 8:00 AM FILLING MACHINE OPERATOR 05/31/2023 8:06 AM FILLING MACHINE OPERATOR Renee Bennett MD LAB - BLOOD ORDERABL ES [facility] Lab [address] [facility], [address] [place] [address], [facility] [phone] * (ABNORMAL) Glucose tolerance gest screen 1 hour (05/17/2023 10:39 AM FILLING MACHINE OPERATOR) Glu Gest Screen 1hr 50g 142(H) 70 - 129 mg/dL 05/17/2023 10:56 AM FILLING MACHINE OPERATOR [facility] Blood BLOOD SPECIMEN / Unknown Venipuncture / Unknown 05/17/2023 10:39 AM FILLING MACHINE OPERATOR 05/17/2023 10:39 AM FILLING MACHINE OPERATOR Narrative [facility] - 05/17/2023 10:56 AM FILLING MACHINE OPERATOR This is a screening test for Gestational Diabetes Mellitus. If results are 130 mg/dL or greater, a Standard 100 gram Gestational ??3 hour Glucose Tolerance should be performed. Renee Bennett MD LAB - BLOOD ORDERABL ES LABORATORY [facility] - [address] (no room number, 1st floor of clinic) [place] [phone], [facility] [phone] * Vitamin D Deficiency (05/17/2023 10:29 AM FILLING MACHINE OPERATOR) Vitamin D, Total (25-Hydroxy) 45 20 - 50 ng/mL 05/17/2023 8:59 PM FILLING MACHINE OPERATOR [facility] Comment:optimum levels Blood BLOOD SPECIMEN / Unknown Venipuncture / Unknown 05/17/2023 10:29 AM FILLING MACHINE OPERATOR 05/17/2023 10:29 AM FILLING MACHINE OPERATOR Narrative [facility] - 05/17/2023 8:59 PM FILLING MACHINE OPERATOR Season, race, dietary intake, and treatment affect the concentration of 29-cfkliwk-Ckafvpx D. Values may decrease during winter months and increase during summer months. Vitamin D determination is routinely performed by an immunoassay specific for 25 hydroxyvitamin D3. ??If an individual is on vitamin D2(ergocalciferol) supplementation, please specify 25 OH vitamin D2 and D3 level determination by LCMSMS test VITD23. Renee Bennett MD LAB - BLOOD ORDERABL ES [facility] Lab [address] [facility], [address] [place] [address], [facility] [phone] * TSH with free T4 reflex (05/17/2023 10:29 AM FILLING MACHINE OPERATOR) TSH 1.00 0.30 - 4.20 uIU/mL 05/17/2023 8:59 PM FILLING MACHINE OPERATOR [facility] Blood BLOOD SPECIMEN / Unknown Venipuncture / Unknown 05/17/2023 10:29 AM FILLING MACHINE OPERATOR 05/17/2023 10:29 AM FILLING MACHINE OPERATOR Renee Bennett MD LAB - BLOOD ORDERABL ES [facility] [place] [facility] Lab [address] [facility], [address] [place] [address], [facility] [phone] * OB hemoglobin (05/17/2023 10:29 AM FILLING MACHINE OPERATOR) Hemoglobin 12.2 11.7 - 15.7 g/dL 05/17/2023 10:39 AM FILLING MACHINE OPERATOR [facility] Blood BLOOD SPECIMEN / Unknown Venipuncture / Unknown 05/17/2023 10:29 AM FILLING MACHINE OPERATOR 05/17/2023 10:29 AM FILLING MACHINE OPERATOR Renee Bennett MD LAB - BLOOD ORDERABL ES RV LAB[facility]ATORY [facility] [address] [place] [address] S E Lab (no room number, 1st floor of clinic) [place] [address], [facility] [phone] * Ferritin (05/17/2023 10:29 AM FILLING MACHINE OPERATOR) Ferritin 17 6 - 175 ng/mL 05/17/2023 8:27 PM FILLING MACHINE OPERATOR [facility] Blood BLOOD SPECIMEN / Unknown Venipuncture / Unknown 05/17/2023 10:29 AM FILLING MACHINE OPERATOR 05/17/2023 10:29 AM FILLING MACHINE OPERATOR Renee Bennett MD LAB - BLOOD ORDERABL ES [facility] [place] Core Lab [address] [facility] [address], [address] [place] [address], [place] [phone] from Last 3 Months Care Teams Food Sanitarian Relationship Specialty Start Date End Date Renee Bennett MD [address] [place] [phone] PCP - General Family Medicine 07/07/20 Renee Bennett MD [address] [place] [address] [id number] Assigned PCP 08/14/[address] [facility] - [address] [place] [address] Keyboard Operator Dietitian, Registered 06/14/23
--- OUTSIDE RECORDS SUMMARY | 2023-08-03 16:10 | XMS_ITS | Encounter Summary ---
Author Name Unknown Organization [facility] Address [address] [facility] [place] [address] Care Team Providers Care Supplier Relationship Director Name Role Phone Laureano Bennett MD Primary Care Provider [phone] Laureano Bennett MD Unavailable [phone] Unavailable [phone] Encounter Details Date Type Department Care Team (Latest Contact Info) Description 07/29/2023 Travel Social History Tobacco Use Types Packs/Day [...] st Contact Info) Description 08/23/2023 Hospital Encounter [facility] [address] [place] [address] Laureano Bennett MD [address] [place] [id number] documented as of this encounter Visit Diagnoses Not on filedocumented in this encounter Additional Health Concerns Assessment Noted Time PHQ-9 Depression Total Score: 0 05/17/20 23 9:06 AM F[employer]ULTY [employer] documented as of this encounter Care Teams Supplier Relationship Director Relationship Specialty Start Date End Date Laureano Bennett MD [address] [place] [id number] PCP - General Family Medicine 07/07/20 Laureano Bennett MD [address] [place] [id number] Assigned PCP 08/14/[address] [facility] Regi Steinberg [place] [place] [address] Computer Analyst Dietitian, Registered 06/14/23 documented as of this encounter
--- OUTSIDE RECORDS SUMMARY | 2023-08-03 16:10 | XMS_ITS | Clinical Summary ---
Author Name Unknown Organization [facility] Address [address] [place] [address] Care Team Providers Care Preschool Head Teacher Name Role Phone Elsewhere, Pcp Primary Care Provider Unavailabl e Source Comments Patient records contain information from all sites at [facility]. For routine questions regarding patient records, call [phone] during business hours, M-F 8:00 AM - 5:00 PM Central Time. Record requests for emergency care only can be directed to [phone] at any time.[facility] Allergies No known active allergies Medications Medication [...] fever. 90 tablet 0 10/30/2021 Active omega 9-eci-ion-fish oil 1,000 mg (120 mg-180 mg) capsule [...] Body Mass Index 23.89 05/19/2022 1:41 PM WALLPAPER PRINTER Plan of Treatment Health Maintenance Due Date [...] Advance Directives For more information, please contact: [phone] Latest Code Status on File Code Status Date Activated Date Inactivated Comments Full Code 10/30/2021 2:51 AM 10/30/2021 3:16 PM Question Answer Comments Full Code: Not Discussed Due to: Not medically appropriate Care Teams Preschool Head Teacher Relationship Specialty Start Date End Date Elsewhere, Pcp PCP - General Internal Medicine 09/17/22
--- OUTSIDE RECORDS SUMMARY | 2023-08-03 16:10 | XMS_ITS | Referral Summary ---
Author Name Unknown Organization [facility] Address [address] [place] [id number] Care Team Providers Care Plaster Form Maker Name Role Phone Elsewhere, Pcp Primary Care Provider Unavailabl e Source Comments Patient records contain information from all sites at [facility]. For routine questions regarding patient records, call [phone] during business hours, M-F 8:00 AM - 5:00 PM Central Time. Record requests for emergency care only can be directed to [phone] at any time.[facility] Allergies No known active allergies Medications [...] fever. 90 tablet 0 10/30/2021 Active omega 1-akt-pxc-fish oil 1,000 mg (120 mg-180 mg) capsule [...] Body Mass Index 23.89 05/19/2022 1:41 PM INSTANT PRINT OPERATOR Plan of Treatment Not on file Advance Directives For more information, please contact: [phone] Latest Code Status on File Code Status Date Activated Date Inactivated Comments Full Code 10/30/2021 2:51 AM 10/30/2021 3:16 PM Question Answer Comments Full Code: Not Discussed Due to: Not medically appropriate Care Teams Plaster Form Maker Relationship Specialty Start Date End Date Elsewhere, Pcp PCP - General Internal Medicine 09/17/22
--- OUTSIDE RECORDS SUMMARY | 2023-08-03 16:10 | XMS_ITS | Clinical Summary ---
Author Name Unknown Organization [facility] Address [address] [place] [id number] Care Team Providers Care Stave Bolt Equalizer Name Role Phone Renee Bennett MD Primary Care Provider [phone] Renee Bennett MD Unavailable [phone] Unavailable [phone] Allergies No known active allergies Medications [...] Date Type Department Care Team Description 07/29/2023 12:15 PM DIRECTOR OF CODING Office Visit [facility] [place] [address] [facility] [address] [place] [phone] Jennifer Boyer MD History of stillbirth in currently patient, third trimester (Primary Dx) 07/29/2023 11:45 AM DIRECTOR OF CODING - 07/29/2023 11:59 PM DIRECTOR OF CODING Hospital Encounter [facility] [place] [address] [facility] [address] [place] [phone] Jennifer Boyer MD Gestational diabetes mellitus (GDM) in third trimester controlled on oral hypoglycemic drug; Prior with demise and current in third trimester Discharge Disposition: Home or Self Care 07/29/2023 Travel 07/26/2023 8:30 AM DIRECTOR OF CODING Office Visit [facility] [address] [place] [address] Rayshawn Nunez MD Insulin controlled gestational diabetes mellitus (GDM) in third trimester (Primary Dx); History of IUFD 07/26/2023 8:00 AM DIRECTOR OF CODING - 07/26/2023 11:59 PM DIRECTOR OF CODING Hospital Encounter [facility] [address] [place] [address] Rayshawn Nunez MD Gestational diabetes mellitus (GDM) in third trimester controlled on oral hypoglycemic drug; Prior with demise and current in third trimester Discharge Disposition: Home or Self Care 07/26/2023 Travel 07/22/2023 9:15 AM DIRECTOR OF CODING Office Visit [facility] [place] [address] [place] [address] Sheila Jones MD Insulin controlled gestational diabetes mellitus (GDM) in third trimester (Primary Dx); History of IUFD 07/22/2023 8:45 AM DIRECTOR OF CODING - 07/22/2023 11:59 PM DIRECTOR OF CODING Hospital Encounter [facility] [place] [address] [place] [address] Sheila Jones MD Gestational diabetes mellitus (GDM) in third trimester controlled on oral hypoglycemic drug; Prior with demise and current in third trimester Discharge Disposition: Home or Self Care 07/22/2023 Travel 07/19/2023 4:40 PM DIRECTOR OF CODING Office Visit [address] [phone] Renee Bennett MD Encounter for supervision of other normal in third trimester (Primary Dx); 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 07/18/2023 4:00 PM DIRECTOR OF CODING Office Visit [facility] [place] [address] [place] [address] Jennifer Boyer MD Rauk, Tyshawn Flor MD Insulin controlled gestational diabetes mellitus (GDM) in third trimester (Primary Dx) 07/18/2023 3:30 PM DIRECTOR OF CODING - 07/18/2023 11:59 PM DIRECTOR OF CODING Hospital Encounter [facility] [address] [place] [address] Jennifer Boyer MD Rauk, Tyshawn Flor MD Gestational diabetes mellitus (GDM) in third trimester controlled on oral hypoglycemic drug; Prior with demise and current in third trimester Discharge Disposition: Home or Self Care 07/18/2023 Travel 07/15/2023 12:15 PM DIRECTOR OF CODING Office Visit [facility] [place] [address] [facility] [address] [place] [address] Rosemary Cheema MD Insulin controlled gestational diabetes mellitus (GDM) in third trimester (Primary Dx); Prior with demise and current in third trimester 07/15/2023 11:40 AM DIRECTOR OF CODING - 07/15/2023 11:59 PM DIRECTOR OF CODING Hospital Encounter [facility] [place] [address] [facility] [address] [place] [address] Rosemary Cheema MD Gestational diabetes mellitus (GDM) in third trimester controlled on oral hypoglycemic drug; Prior with demise and current in third trimester Discharge Disposition: Home or Self Care 07/15/2023 8:40 AM DIRECTOR OF CODING Office Visit [address] [phone] Renee Bennett MD Encounter for supervision of other normal in second trimester (Primary Dx); Gestational diabetes mellitus (GDM), antepartum, gestational diabetes method of control unspecified 07/15/2023 Travel 07/14/2023 Travel 2023 8:30 AM DIRECTOR OF CODING Office Visit [facility] [place] [address] [facility] [address] [place] [phone] Rayshawn Nunez MD Insulin controlled gestational diabetes mellitus (GDM) in third trimester (Primary Dx) 2023 8:00 AM DIRECTOR OF CODING - 2023 11:59 PM DIRECTOR OF CODING Hospital Encounter [facility] [address] [place] [phone] Rayshawn Nunez MD Gestational diabetes mellitus (GDM) in third trimester controlled on oral hypoglycemic drug; Prior with demise and current in third trimester Discharge Disposition: Home or Self Care 2023 Travel 07/08/2023 4:10 PM DIRECTOR OF CODING - 07/08/2023 5:05 PM DIRECTOR OF CODING Hospital Encounter [facility] [address] [place] [address] Renee Bennett MD Discharge Disposition: Home or Self Care 07/08/2023 Travel 07/08/2023 Telephone [facility] [place] [address] [place] [phone] Chyna Garcia RN Decreased Movement 07/08/2023 Telephone [facility] [place] [address] [place] [phone] Chyna Garcia RN Decreased Movement 07/06/2023 4:00 PM DIRECTOR OF CODING Office Visit [facility] [place] [address] [facility] [address] [place] [phone] Tyshawn Mccurdy MD Gestational diabetes mellitus (GDM) in third trimester controlled on oral hypoglycemic drug (Primary Dx); Prior with demise and current in third trimester 07/06/2023 3:30 PM DIRECTOR OF CODING - 07/06/2023 11:59 PM DIRECTOR OF CODING Hospital Encounter [facility] [place] [address] [facility] [address] [place] [phone] Tyshawn Mccurdy MD Gestational diabetes mellitus (GDM) in third trimester controlled on oral hypoglycemic drug; Prior with demise and current in third trimester Discharge Disposition: Home or Self Care 07/06/2023 Travel 07/04/2023 4:00 PM DIRECTOR OF CODING Office Visit [facility] [place] [address] [place] [phone] Rosemary Cheema MD Gestational diabetes mellitus (GDM) in third trimester controlled on oral hypoglycemic drug (Primary Dx) 07/04/2023 3:15 PM DIRECTOR OF CODING - 07/04/2023 11:59 PM DIRECTOR OF CODING Hospital Encounter [facility] [place] [address] [place] [phone] Rosemary Cheema MD Gestational diabetes mellitus (GDM) in third trimester controlled on oral hypoglycemic drug; Prior with demise and current in third trimester Discharge Disposition: Home or Self Care 07/04/2023 8:20 AM DIRECTOR OF CODING Office Visit [address] [phone] Renee Bennett MD Encounter for supervision of other normal in second trimester (Primary Dx); Gestational diabetes mellitus (GDM), antepartum, gestational diabetes method of control unspecified; History of stillbirth 07/04/2023 Travel 07/03/2023 Travel 07/01/2023 8:30 AM DIRECTOR OF CODING Office Visit [facility] [place] [address] [place] [phone] Jennifer Boyer MD Gestational diabetes mellitus (GDM) in third trimester controlled on oral hypoglycemic drug (Primary Dx); Prior with demise and current in third trimester 07/01/2023 7:54 AM DIRECTOR OF CODING - 07/01/2023 11:59 PM DIRECTOR OF CODING Hospital Encounter [facility] [address] [place] [phone] Jennifer Boyer MD related condition, antepartum Discharge Disposition: Home or Self Care 07/01/2023 Travel 06/22/2023 PRE VISIT [facility] [address] [place] [phone] Violette Zhou RN Ultrasound (L2-GDM) 06/21/2023 10:20 AM DIRECTOR OF CODING Office Visit [address] [phone] Renee Bennett MD Gestational diabetes mellitus (GDM), antepartum, gestational diabetes method of control unspecified (Primary Dx) 06/21/2023 Transcribe Orders [facility] [address] [place] [phone] Renee Bennett MD related condition, antepartum (Primary Dx) 06/21/2023 Travel 06/14/2023 10:45 AM DIRECTOR OF CODING [facility] [address] [place] [address] L[place] Currie [phone] [address] Gestational diabetes mellitus (GDM), antepartum, gestational diabetes method of control unspecified 06/14/2023 Travel 06/10/[address] [address] Unknown, Provider Referral (No available appts for classes virtually for expected time of the referral) 06/03/2023 8:00 AM DIRECTOR OF CODING Office Visit [address] [phone] Renee Bennett MD , unspecified gestational age (Primary Dx); Varicose veins during ; Gestational diabetes mellitus (GDM), antepartum, gestational diabetes method of control unspecified 06/03/2023 Travel 05/31/2023 8:00 AM DIRECTOR OF CODING Lab [facility] [address] [place] [phone] Elevated glucose 05/31/2023 Travel 05/17/2023 9:20 AM DIRECTOR OF CODING Office Visit [address] [phone] Renee Bennett MD Encounter for supervision of [...] Pressure 110/58 07/19/2023 4:36 PM DIRECTOR OF CODING Pulse 92 07/19/2023 4:36 PM DIRECTOR OF CODING Temperature 36.1 ??C (97 ??F) 07/19/2023 4:36 PM DIRECTOR OF CODING Respiratory Rate 16 07/15/2023 8:48 AM DIRECTOR OF CODING Oxygen Saturation 97% 07/19/2023 4:36 PM DIRECTOR OF CODING Inhaled Oxygen Concentration - - Weight 82.1 kg (181 lb) 07/19/2023 4:36 PM DIRECTOR OF CODING Height 174 cm (5' 8.5) 07/15/2023 8:48 AM DIRECTOR OF CODING Body Mass Index 27.12 07/15/2023 8:48 AM DIRECTOR OF CODING Plan of Treatment Upcoming Encounters Date Type Department Care Team (Late st Contact Info) Description 08/23/2023 Hospital Encounter [facility] [address] [place] [phone] Renee Bennett MD [address] [place], [place] [phone] Health Maintenance Due Date Last Done Comments [...] Procedure Name Priority Date/Time Associated Diagnosis Comments [facility] SINGLE F/U Routine 07/29/2023 1:32 PM DIRECTOR OF CODING Gestational diabetes mellitus (GDM) in third trimester controlled on oral hypoglycemic drug Prior with demise and current in third trimester [facility] S[facility] Routine 07/26/2023 8:15 AM DIRECTOR OF CODING Gestational diabetes mellitus (GDM) in third trimester controlled on oral hypoglycemic drug Prior with demise and current in third trimester [facility] S[facility] Routine 07/22/2023 9:10 AM DIRECTOR OF CODING Gestational diabetes mellitus (GDM) in third trimester controlled on oral hypoglycemic drug Prior with demise and current in third trimester GLUCOSE ALBUMIN OB URINE Routine 07/19/2023 4:28 PM DIRECTOR OF CODING Encounter for supervision of other normal in third trimester [facility] Routine 07/18/2023 3:55 PM DIRECTOR OF CODING Gestational diabetes mellitus (GDM) in third trimester controlled on oral hypoglycemic drug Prior with demise and current in third trimester [facility] Routine 07/15/2023 12:07 PM DIRECTOR OF CODING Gestational diabetes mellitus (GDM) in third trimester controlled on oral hypoglycemic drug Prior with demise and current in third trimester GLUCOSE ALBUMIN OB URINE Routine 07/15/2023 8:30 AM DIRECTOR OF CODING Encounter for supervision of other normal in second trimester [facility] Routine 2023 8:41 AM DIRECTOR OF CODING Gestational diabetes mellitus (GDM) in third trimester controlled on oral hypoglycemic drug Prior with demise and current in third trimester NON-STRESS TEST - HIM SCAN 07/08/2023 12:00 AM DIRECTOR OF CODING [facility] Routine 07/06/2023 3:49 PM DIRECTOR OF CODING Gestational diabetes mellitus (GDM) in third trimester controlled on oral hypoglycemic drug Prior with demise and current in third trimester [facility] Routine 07/04/2023 3:38 PM DIRECTOR OF CODING Gestational diabetes mellitus (GDM) in third trimester controlled on oral hypoglycemic drug Prior with demise and current in third trimester BETA 2 GLYCOPROTEIN ANTIBODIES IGG IGM Routine 07/04/2023 9:42 AM DIRECTOR OF CODING History of stillbirth CARDIOLIPIN BRENDEN IGG AND IGM Routine 07/04/2023 9:42 AM DIRECTOR OF CODING History of stillbirth LUPUS ANTICOAGULANT PANEL Routine 07/04/2023 9:42 AM DIRECTOR OF CODING History of stillbirth GLUCOSE ALBUMIN OB URINE Routine 07/04/2023 8:20 AM DIRECTOR OF CODING Encounter for supervision of other normal in second trimester [facility] SINGLE Routine 07/01/2023 8:44 AM DIRECTOR OF CODING related condition, antepartum GLUCOSE ALBUMIN OB URINE Routine 06/03/2023 8:42 AM DIRECTOR OF CODING , unspecified gestational age GESTATIONAL GLUCOSE TOLERANCE TESTING, 3 HOUR Routine 05/31/2023 11:21 AM DIRECTOR OF CODING Elevated glucose GESTATIONAL GLUCOSE TOLERANCE TESTING, 2 HOUR Routine 05/31/2023 10:14 AM DIRECTOR OF CODING Elevated glucose GESTATIONAL GLUCOSE TOLERANCE TESTING, 1 HOUR Routine 05/31/2023 9:17 AM DIRECTOR OF CODING Elevated glucose GESTATIONAL GLUCOSE TOLERANCE TESTING, 3 HOUR Routine 05/31/2023 8:00 AM DIRECTOR OF CODING Elevated glucose GESTATIONAL GLUCOSE TOLERANCE TESTING, FASTING Routine 05/31/2023 8:00 AM DIRECTOR OF CODING Elevated glucose GLUCOSE ALBUMIN OB URINE Routine 05/17/2023 1:19 PM DIRECTOR OF CODING Encounter for supervision of other normal in second trimester GLUCOSE TOLERANCE GEST SCREEN 1 HOUR Routine 05/17/2023 10:39 AM DIRECTOR OF CODING Encounter for supervision of other normal in second trimester FERRITIN Routine 05/17/2023 10:29 AM DIRECTOR OF CODING Encounter for supervision of other normal in second trimester OB HEMOGLOBIN Routine 05/17/2023 10:29 AM DIRECTOR OF CODING Encounter for supervision of other normal in second trimester TSH WITH FREE T4 REFLEX Routine 05/17/2023 10:29 AM DIRECTOR OF CODING Encounter for supervision of other normal in second trimester VITAMIN D DEFICIENCY SCREENING Routine 05/17/2023 10:29 AM DIRECTOR OF CODING Encounter for supervision of other normal in second trimester from Last 3 Months Results * Maternal US Comprehensive Single F/U (07/29/2023 1:32 PM DIRECTOR OF CODING) Anatomical Region Laterality Modality Ultrasound 07/29/2023 11:4 6 AM DIRECTOR OF CODING Impressions 07/29/2023 1:43 PM DIRECTOR OF CODING IMPRESSION ----- 1) Brumfield intrauterine at 36w 3d gestational age. 2) None of the anomalies commonly detected by ultrasound were evident in the anatomic survey described above. 3) Growth parameters and estimated weight were consistent with an appropriate for gestation age pattern of growth. 4) The amniotic fluid volume appeared normal. 5) The BPP was reassuring. Narrative 07/29/2023 1:43 PM DIRECTOR OF CODING ?Comp Follow Up ----- Pat. Name: YU LOGAN ? Study Date: ??07/29/2023 11:46am Pat. NO: ??[id number] ?Referring ??MD: ABIDA ROMERO Site: ??[facility] ? Cash Accounting Clerk: Dhara Chase RDMS : ??1995 ?Age: ?? [...] 6 lb 6 ?oz EFW by ?Hadlock ([id number]) Head / Face / Neck Biometry: Head Of Physics ? 4.1 ? mm CM ?6.8 ? mm ANATOMY ----- The following structures appear normal: Head / Neck ? Cranium. Head size. Head shape. Lateral ventricles. Midline falx. Cavum septi pellucidi. Cerebellum. Cisterna magna. Thalami. Face ? Lips. Profile. Nose. Maxilla. Mandible. Orbits. Lens. Heart / Thorax ?4-chamber view. RVOT view. LVOT view. Aortic arch view. Bicaval view. 9-lxfizf-ymnqagp view. ? Diaphragm. Abdomen ? Stomach. Kidneys. Bladder. Spine ?Cervical spine. Thoracic spine. Lumbar spine. Sacral spine. Extremities / Skeleton ?Right hand. Gender: female. BIOPHYSICAL PROFILE ----- 2: breathing movements 2: Gross body movements 2: tone 2: Amniotic fluid volume 8/8 Biophysical profile score Interpretation: normal MATERNAL STRUCTURES [...] LOGAN Study Date: 07/29/2023 11:46am Pat. NO: [id number] Referring MD: ABIDA ROMERO Site: [facility] Cash Accounting Clerk: Dhara Chase RDMS : 1995 Age: 28 [...] 6 lb 6 oz EFW by Hadlock ([id number]) Head / Face / Neck Biometry: Head Of Physics 4.1 mm CM 6.8 mm ANATOMY ----- The following structures appear normal: Head / Neck Cranium. Head size. Head shape.Lateral ventricles. Midline falx. Cavum septi pellucidi. Cerebellum.Cisterna magna. Thalami. Face Lips. Profile. Nose. Maxilla.Mandible. Orbits. Lens. Heart / Thorax 4-chamber view. RVOT view. LVOT view.Aortic arch view. Bicaval view. 1-yevlqh-fovnken view. Diaphragm. Abdomen Stomach. Kidneys. Bladder. Spine [...] The BPP was reassuring. Jennifer Boyer MD [facility] US ORDERAB LES * Maternal BPP Single (07/26/2023 8:15 AM DIRECTOR OF CODING) Only the most recent of7 resultswithin the time period is included. Anatomical Region Laterality Modality Ultrasound 07/26/2023 7:52 AM DIRECTOR OF CODING Impressions 07/26/2023 8:17 AM DIRECTOR OF CODING IMPRESSION ----- 1. Brumfield intrauterine at 36w 0d gestational age here for testing. 2. The fetus is in cephalic presentation. The amniotic fluid volume is normal. 3. The BPP is 01/25. Narrative 07/26/2023 8:17 AM DIRECTOR OF CODING ?BPP ----- Pat. Name: YU LOGAN ? Study Date: ??07/26/2023 7:52am Pat. NO: ??[id number] ?Referring ??MD: RENEE BENNETT Site: ??[facility] ? Cash Accounting Clerk: Makeda Hassan RDMS : ??1995 ?Age: ?? [...] LOGAN Study Date: 07/26/2023 7:52am Pat. NO: [id number] Referring MD: RENEE BENNETT Site: [facility] Cash Accounting Clerk: Makeda Hassan RDMS : 1995 Age: 28 [...] BPP is 8/8. Jennifer Boyer MD [facility] ORDERAB LES * Glucose and albumin, OB urine (07/19/2023 4:28 PM DIRECTOR OF CODING) Only the most recent of5 resultswithin the time period is included. Protein Albumin Urine Negative Negative mg/dL 07/19/2023 4:30 PM DIRECTOR OF CODING [facility] Glucose Urine Negative Negative mg/dL 07/19/2023 4:30 PM DIRECTOR OF CODING [facility] Urine MID-STREAM URINE SPECIMEN / Unknown Non-blood Collection / Unknown 07/19/2023 4:28 PM DIRECTOR OF CODING 07/19/2023 4:28 PM DIRECTOR OF CODING Renee Bennett MD LAB - URINE ORDERABL ES [facility] - [address] Lab (no room number, 1st floor of clinic) [place] [id number], [facility] [phone] * NON-STRESS TEST - HIM SCAN (07/08/2023 12:00 AM DIRECTOR OF CODING) 07/08/2023 Provider Outside PROCEDURES * Cardiolipin Brenden IgG and IgM (07/04/2023 9:42 AM DIRECTOR OF CODING) Cardiolipin Brenden IgG Instrument Value <2.0 <10.0 GPL-U/mL 07/06/2023 11:27 AM DIRECTOR OF CODING SPECIALTY CORE/PROT/END O Cardiolipin Antibody IgG Negative Negative 07/06/2023 11:27 AM DIRECTOR OF CODING SPECIALTY CORE/PROT/END O Cardiolipin Brenden IgM Instrument Value 2.2 <10.0 MPL-U/mL 07/06/2023 11:27 AM DIRECTOR OF CODING SPECIALTY CORE/PROT/END O Cardiolipin Antibody IgM Negative Negative 07/06/2023 11:27 AM DIRECTOR OF CODING SPECIALTY CORE/PROT/END O Blood BLOOD SPECIMEN / Unknown Venipuncture / Unknown 07/04/2023 9:42 AM DIRECTOR OF CODING 07/04/2023 9:43 AM DIRECTOR OF CODING Renee Bennett MD LAB - BLOOD ORDERABL ES [facility] SPECIALTY CORE/PROT/ENDO UM Specialty Core/Prot/Endo [facility], [address] [phone] * Beta 2 Glycoprotein Antibodies IGG IGM (07/04/2023 9:42 AM DIRECTOR OF CODING) Beta 2 Glycoprotein 1 Antibody IgG 1.0 <7.0 U/mL 07/06/2023 11:27 AM DIRECTOR OF CODING UM SPECIALTY CORE/PROT/END O Comment:Negative Beta 2 Glycoprotein 1 Antibody IgM 3.3 <7.0 U/mL 07/06/2023 11:27 AM DIRECTOR OF CODING UM SPECIALTY CORE/PROT/END O Comment:Negative Blood BLOOD SPECIMEN / Unknown Venipuncture / Unknown 07/04/2023 9:42 AM DIRECTOR OF CODING 07/04/2023 9:43 AM DIRECTOR OF CODING Renee Bennett MD LAB - BLOOD ORDERABL ES UM SPECIALTY CORE/PROT/ENDO UM Specialty Core/Prot/Endo [facility], [address] [phone] * Lupus Anticoagulant Panel (07/04/2023 9:42 AM DIRECTOR OF CODING) INR 1.04 0.85 - 1.15 4 4:15 PM DIRECTOR OF CODING [facility] Thrombin Time 17.0 13.0 - 19.0 Seconds 4 4:15 PM DIRECTOR OF CODING [facility] PTT Ratio 0.97 <1.21 4 4:15 PM DIRECTOR OF CODING [facility] DRVVT Screen Ratio 0.91 <1.08 4 4:15 PM DIRECTOR OF CODING [facility] Lupus Result Negative Negative 4:15 PM DIRECTOR OF CODING [facility] Lupus Interpretation The INR is normal. APTT ratio is normal. ?? DRVVT Screen ratio is normal. Thrombin time is normal. NEGATIVE TEST; A LUPUS ANTICOAGULANT WAS NOT DETECTED IN THIS SPECIMEN WITHIN THE LIMITS OF THE TESTING REPERTOIRE. If the clinical picture is strongly suggestive of an antiphospholipid syndrome, recommend anticardiolipin and xlzy-5-mrfwzhuaynm n (IgG and IgM) antibody tests. Salina James MD, PhD [facility] 4:15 PM DIRECTOR OF CODING [facility] Blood BLOOD SPECIMEN / Unknown Venipuncture / Unknown 07/04/2023 9:42 AM DIRECTOR OF CODING 07/04/2023 9:43 AM DIRECTOR OF CODING Renee Bennett MD LAB - BLOOD ORDERABL ES SPECIAL COAGULATION Special Coagulation [address] [facility], [address] [place] [phone] [phone] * [facility] US Comprehensive Single (07/01/2023 8:44 AM DIRECTOR OF CODING) Anatomical Region Laterality Modality Ultrasound 07/01/2023 7:55 AM DIRECTOR OF CODING Impressions 07/01/2023 10:53 AM DIRECTOR OF CODING IMPRESSION ----- 1) Brumfield intrauterine at 32w [...] reassuring. Narrative 07/01/2023 10:53 AM DIRECTOR OF CODING ?Comprehensive ----- Pat. Name: YU LOGAN ? Study Date: ??07/01/2023 7:55am Pat. NO: ??[id number] ?Referring ??MD: RENEE BENNETT Site: ??[facility] ? Cash Accounting Clerk: Kirstin Gold : ??1995 ?Age: ?? 27 ----- INDICATION [...] 4 lb 5 ?oz EFW by ?Hadlock ([id number]) Head / Face / Neck Biometry: Head Of Physics ? 6.3 ? mm CM ?8.5 ? [...] vena cava. Inferior vena cava. 3-vessel view. 0-cmibvv-maijfap view. ? Cardiac position. Cardiac size. Cardiac [...] findings on today's ultrasound with the patient. uY is a 27 yo at 32w 3d [...] the patient (reviewing medical records/tests), in direct fvcm-kr-bblg contact with the patient during her visit with the majority spent counseling and discussing the plan of care and documenting the visit in the electronic medical record. Please see note for details. Procedure Note Jennifer Boyer MD - 07/01/2023 Comprehensive ----- Pat. Name: YU LOGAN Study Date: 07/01/2023 7:55am Pat. NO: [id number] Referring MD: RENEE BENNETT Site: [facility] Cash Accounting Clerk: Kirstin Alla RDMS : 1995 Age: 27 ----- INDICATION [...] 4 lb 5 oz EFW by Hadlock ([id number]) Head / Face / Neck Biometry: Head Of Physics 6.3 mm CM 8.5 mm ANATOMY ----- The following structures appear normal: Head / Neck Cranium. Head size. Head shape.Lateral ventricles. Choroid plexus. Midline falx. Cavum septi pellucidi.Cerebellum. Cisterna magna. Parenchyma. Thalami. Vermis. Neck. Face Lips. Heart / Thorax 4-chamber view. RVOT view. LVOT view.Situs. Bicaval view. Superior vena cava. Inferior vena cava. 3-vesselview. 3-qydqux-ufvdtst view. Cardiac position. Cardiac size.Cardiac rhythm. Right [...] see the patient (reviewing medical records/tests), in kuasynfbmd-cp-xniy contact with the patient during her visit [...] The BPP was reassuring. Renee Bennett MD [facility] ORDERABLE S * Gestational Glucose Tolerance Testing, 3 Hour (05/31/2023 11:21 AM DIRECTOR OF CODING) [facility] Gestational GTT 3 Hr Post Dose 110 60 - 139 mg/dL 06/02/2023 12:14 AM DIRECTOR OF CODING [facility] Blood BLOOD SPECIMEN / Unknown Venipuncture / Unknown 05/31/2023 11:21 AM DIRECTOR OF CODING 05/31/2023 11:21 AM DIRECTOR OF CODING Narrative [facility] - 06/02/2023 12:14 AM DIRECTOR OF CODING Blood glucose levels collected at fasting, 1 [...] LAB - BLOOD ORDERABL ES [facility] Core Lab [address] [facility], [address] [place] [address], [facility] [phone] * (ABNORMAL) Gestational Glucose Tolerance Testing, 2 Hour (05/31/2023 10:14 AM DIRECTOR OF CODING) Gestational GTT 2 Hr Post Dose 218(H) 60 - 154 mg/dL 06/01/2023 2:26 PM DIRECTOR OF CODING [facility] Blood BLOOD SPECIMEN / Unknown Venipuncture / Unknown 05/31/2023 10:14 AM DIRECTOR OF CODING 05/31/2023 10:14 AM DIRECTOR OF CODING Renee Bennett MD LAB - BLOOD ORDERABL ES [facility] Acute Care Lab [address] [facility], [address] [place] [address], [place] [phone] * (ABNORMAL) Gestational Glucose Tolerance Testing, 1 Hour (05/31/2023 9:17 AM DIRECTOR OF CODING) [facility] Gestational GTT 1 Hr Post Dose 192(H) 60 - 179 mg/dL 05/31/2023 5:31 PM DIRECTOR OF CODING [facility] Blood BLOOD SPECIMEN / Unknown Venipuncture / Unknown 05/31/2023 9:17 AM DIRECTOR OF CODING 05/31/2023 9:17 AM DIRECTOR OF CODING Renee Bennett MD LAB - BLOOD ORDERABL ES [facility] Core Lab [address] [facility], [address] [address], [facility] [phone] * (ABNORMAL) Gestational Glucose Tolerance Testing, Fasting (05/31/2023 8:00 AM DIRECTOR OF CODING) [facility] Gestational GTT Fasting 123(H) 60 - 94 mg/dL 05/31/2023 7:28 PM DIRECTOR OF CODING [facility] Blood BLOOD SPECIMEN / Unknown Venipuncture / Unknown 05/31/2023 8:00 AM DIRECTOR OF CODING 05/31/2023 8:06 AM DIRECTOR OF CODING Renee Bennett MD LAB - BLOOD ORDERABL ES [facility] Core Lab [address] [facility], [address] [place] [address], [facility] [phone] * (ABNORMAL) Glucose tolerance gest screen 1 hour (05/17/2023 10:39 AM DIRECTOR OF CODING) Glu Gest Screen 1hr 50g 142(H) 70 - 129 mg/dL 05/17/2023 10:56 AM DIRECTOR OF CODING [facility] Blood BLOOD SPECIMEN / Unknown Venipuncture / Unknown 05/17/2023 10:39 AM DIRECTOR OF CODING 05/17/2023 10:39 AM DIRECTOR OF CODING Narrative [facility] - 05/17/2023 10:56 AM DIRECTOR OF CODING This is a screening test for Gestational Diabetes Mellitus. If results are 130 mg/dL or greater, a Standard 100 gram Gestational ??3 hour Glucose Tolerance should be performed. Renee Bennett MD LAB - BLOOD ORDERABL ES [facility] - [address] [facility] (no room number, 1st floor of clinic) [place] [address], [facility] [phone] * Vitamin D Deficiency (05/17/2023 10:29 AM DIRECTOR OF CODING) Vitamin D, Total (25-Hydroxy) 45 20 - 50 ng/mL 05/17/2023 8:59 PM DIRECTOR OF CODING [facility] Comment:optimum levels Blood BLOOD SPECIMEN / Unknown Venipuncture / Unknown 05/17/2023 10:29 AM DIRECTOR OF CODING 05/17/2023 10:29 AM DIRECTOR OF CODING Narrative [facility] - 05/17/2023 8:59 PM DIRECTOR OF CODING Season, race, dietary intake, and treatment affect the concentration of 28-sxkrkdw-Risajri D. Values may decrease during winter months and increase during summer months. Vitamin D determination is routinely performed by an immunoassay specific for 25 hydroxyvitamin D3. ??If an individual is on vitamin D2(ergocalciferol) supplementation, please specify 25 OH vitamin D2 and D3 level determination by LCMSMS test VITD23. Renee Bennett MD LAB - BLOOD ORDERABL ES [facility] Core Lab [address] [facility], [address] [place] [address], [facility] [phone] * TSH with free T4 reflex (05/17/2023 10:29 AM DIRECTOR OF CODING) TSH 1.00 0.30 - 4.20 uIU/mL 05/17/2023 8:59 PM DIRECTOR OF CODING [facility] Blood BLOOD SPECIMEN / Unknown Venipuncture / Unknown 05/17/2023 10:29 AM DIRECTOR OF CODING 05/17/2023 10:29 AM DIRECTOR OF CODING Renee Bennett MD LAB - BLOOD ORDERABL ES [facility] Core Lab [address] [facility], [address] [address], [facility] [phone] * OB hemoglobin (05/17/2023 10:29 AM DIRECTOR OF CODING) Hemoglobin 12.2 11.7 - 15.7 g/dL 05/17/2023 10:39 AM DIRECTOR OF CODING [facility] Blood BLOOD SPECIMEN / Unknown Venipuncture / Unknown 05/17/2023 10:29 AM DIRECTOR OF CODING 05/17/2023 10:29 AM DIRECTOR OF CODING Renee Bennett MD LAB - BLOOD ORDERABL ES [facility] [place] [facility] [address] [place] [address] S. E. Lab (no room number, 1st floor of clinic) [place] [address], [facility] [phone] * Ferritin (05/17/2023 10:29 AM DIRECTOR OF CODING) Ferritin 17 6 - 175 ng/mL 05/17/2023 8:27 PM DIRECTOR OF CODING [facility] Blood BLOOD SPECIMEN / Unknown Venipuncture / Unknown 05/17/2023 10:29 AM DIRECTOR OF CODING 05/17/2023 10:29 AM DIRECTOR OF CODING Renee Bennett MD LAB - BLOOD ORDERABL ES [facility] [place] Core Lab [address] [facility] [address], [address] [place] [address], [place] [phone] from Last 3 Months Care Teams Stave Bolt Equalizer Relationship Specialty Start Date End Date Renee Bennett MD [address] [place] [address] [phone] PCP - General Family Medicine 07/07/20 Renee Bennett MD [address] [place] [address] [phone] Assigned PCP 08/14/[address] [facility] - [address] [place] [place] [address] Publications Designer Dietitian, Registered 06/14/23
--- OUTSIDE RECORDS SUMMARY | 2023-08-03 16:11 | XMS_ITS | Encounter Summary ---
Author Name Unknown Organization [place] Address [address] [place] [address] Care Team Providers Care Concrete Pouring Supervisor Name Role Phone Laureano Bennett MD Primary Care Provider [phone] Laureano Bennett MD Unavailable [phone] Unavailable [phone] Encounter Details Date Type Department Care Team ([facility] Contact Info) Description 07/15/2023 8:40 AM AUTOMATIC FURNACE OPERATOR Office Visit [address] [phone] Laureano Bennett MD [address] [place] [address] Encounter for supervision of other normal [...] Comments Blood Pressure 126/74 07/15/2023 8:48 AM AUTOMATIC FURNACE OPERATOR Pulse 78 07/15/2023 8:48 AM AUTOMATIC FURNACE OPERATOR Temperature 36.4 ??C (97.6 ??F) 07/15/2023 8:48 AM CS T Respiratory Rate 16 07/15/2023 8:48 AM AUTOMATIC FURNACE OPERATOR Oxygen Saturation 99% 07/15/2023 8:48 AM AUTOMATIC FURNACE OPERATOR Inhaled Oxygen Concentration - - Weight 80.7 kg (178 lb) 07/15/2023 8:48 AM AUTOMATIC FURNACE OPERATOR Height 174 cm (5' 8.5) 07/15/2023 8:48 AM AUTOMATIC FURNACE OPERATOR Body Mass Index 26.67 07/15/2023 8:48 AM AUTOMATIC FURNACE OPERATOR documented in this encounter Progress Notes * Laureano Bennett MD - 07/15/2023 8:40 AM CST S:Yu Renee is here today for a Visit at 34w3d gestation. Concerns today: Less movement, swelling since last week, and would like to up dose for insulin, would like more info on when to deliver baby, and breech noted at [facility] scheduling version Gest diabetes - eating ok [...] dinner if needed Return in 1 weeks MATIC FURNACE OPERATOR documented in this encounter Plan of Treatment Upcoming Encounters Date Type Department Care Team (Late st Contact Info) Description 08/23/2023 Hospital Encounter [facility] Birthplace [address] [place] [address] [place] [address] [place] [address] documented as of this encounter Procedures Procedure Name Priority Date/Time Associated Diagnosis Comments GLUCOSE ALBUMIN OB URINE Routine 07/15/2023 8:30 AM AUTOMATIC FURNACE OPERATOR Encounter for supervision of other normal in second trimester documented in this encounter Results * Glucose and albumin, OB urine (07/15/2023 8:30 AM AUTOMATIC FURNACE OPERATOR) Protein Albumin Urine Negative Negative mg/dL 07/15/2023 8:59 AM AUTOMATIC FURNACE OPERATOR [facility] Glucose Urine Negative Negative mg/dL 07/15/2023 8:59 AM AUTOMATIC FURNACE OPERATOR [facility] Urine MID-STREAM URINE SPECIMEN / Unknown Non-blood Collection / Unknown 07/15/2023 8:30 AM AUTOMATIC FURNACE OPERATOR 07/15/2023 8:56 AM AUTOMATIC FURNACE OPERATOR Laureano Bennett MD LAB - URINE ORDERABL ES [facility] [address] [facility] (no room number, 1st floor of clinic) [place] [address], [facility] [phone] documented in this encounter Visit Diagnoses Diagnosis Encounter for supervision of other normal in second trimester- Primary Gestational diabetes mellitus (GDM), antepartum, gestational diabetes method of control unspecified documented in this encounter Additional Health Concerns Assessment Noted Time PHQ-9 Depression Total Score: 0 05/17/20 9:06 AM AUTOMATIC FURNACE OPERATOR documented as of this encounter Care Teams Concrete Pouring Supervisor Relationship Specialty [place] [address] [place] [address] PCP - General Family Medicine 07/07/20 Laureano Bennett MD [address] [place] [address] [phone] Assigned PCP 08/14/[address] [place] [address] [place] [address] 3Rd Grade Teacher Dietitian, Registered 06/14/23 documented as of this encounter
--- OUTSIDE RECORDS SUMMARY | 2023-08-03 16:11 | XMS_ITS | Encounter Summary ---
Author Name Unknown Organization [place] Address [address] [facility] [place] [address] Care Team Providers Care Land Resource Specialist Name Role Phone Laureano Bennett MD Primary Care Provider [phone] Laureano Bennett MD Unavailable [phone] Unavailable [phone] Encounter Details Date Type Department Care [...] st Contact Info) Description 08/23/2023 Hospital Encounter [facility] Birthplace [address] [place] [address] Laureano Bennett MD [address] [place] [address] [phone] documented as of this encounter Visit Diagnoses Not on filedocumented in this encounter Additional Health Concerns Assessment Noted Time PHQ-9 Depression Total Score: 0 05/17/20 23 9:06 AM BIOCHEMICAL ENGINEER documented as of this encounter Care Teams Land Resource Specialist Relationship Specialty Start Date End Date Laureano Bennett MD [address] [place] [phone] PCP - General Family Medicine 07/07/20 Laureano Bennett MD [address] [place] [address] Assigned PCP 08/14/[address] [facility] [place] [address] [place] [address] Dust Sampler Dietitian, Registered 06/14/23 documented as of this encounter
--- OUTSIDE RECORDS SUMMARY | 2023-08-03 16:11 | XMS_ITS | Encounter Summary ---
Author Name Unknown Organization [place] Address [address] [facility] [place] [address] Care Team Providers Care Blending Tank Tender Helper Name Role Phone Laureano Bennett MD Primary Care Provider Laureano Bennett MD Unavailable [phone] Unavailable Encounter Details [...] Contact Info) Description 08/23/[address] [facility] Birthplace [address] [place] [address] Laureano Bennett MD [address] [place] [address] documented as of this encounter Visit Diagnoses Not on filedocumented in this encounter Additional Health Concerns Assessment Noted Time PHQ-9 Depression Total Score: 0 05/17/20 23 9:06 AM OPTICAL INSTRUMENT REPAIRER documented as of this encounter Care Teams Blending Tank Tender Helper Relationship Specialty Start Date End Date Laureano Bennett MD [address] [place] [address] PCP - General Family Medicine 07/07/20 Laureano Bennett MD [address] [place] [address] Assigned PCP 08/14/[address] [facility] Regi Stein[place] [address] Clerk Television Production Dietitian, Registered 06/14/23 documented as of this encounter
--- OUTSIDE RECORDS SUMMARY | 2023-08-03 16:11 | XMS_ITS | Encounter Summary ---
Author Name Unknown Organization [place] Address [address] [place] [address] Care Team Providers Care Insurance Sales Professional Name Role Phone Renee Bennett MD Primary Care Provider [phone] Renee Bennett MD Unavailable [phone] Unavailable [phone] Reason for Referral * Diagnostic Imaging Ultrasound (Routine) - Pending Review Specialty Diagnoses / Procedures Referred By Tim nathan Referred To Contact Radiology. Diagnoses Gestational diabetes mellitus (GDM) in third trimester controlled on oral hypoglycemic drug History of IUFD Procedures Maternal BPP Single Jennifer Boyer MD [address] [place] [address] [place] [address] Referral ID Status Reason Start Date Expiration Date V isits Requested Visits Authorized [id number] Pending Review 07/01/2023 06/30/2024 1 1 HETIC GEM PRESS OPERATOR Reason for Visit * Diagnostic Imaging Ultrasound (Routine) - Pending Review Specialty Diagnoses / Procedures Referred By Tim nathan Referred To Contact Radiology. Diagnoses Gestational diabetes mellitus (GDM) in third trimester controlled on oral hypoglycemic drug History of IUFD Procedures Maternal BPP Single Jennifer Boyer MD [address] [place] [address] Referral ID Status Reason Start Date Expiration Date V isits Requested Visits Authorized [id number] Pending Review 07/01/2023 06/30/2024 1 1 Encounter Details Date Type Department Care Team (Latest Contact Info) Description 07/18/2023 3:30 PM SYNTHETIC GEM PRESS OPERATOR - 07/18/2023 11:59 PM SYNTHETIC GEM PRESS OPERATOR Hospital Encounter [facility] [place] [address] [facility] [address] [place] [address] Jennifer Boyer MD [address] [place] [address] Tyshawn Mccurdy MD [address] [place] [address] Gestational diabetes mellitus (GDM) in [...] st Contact Info) Description 08/23/2023 Hospital Encounter [facility] Birth[facility] [address] [place] [phone] Renee Bennett MD [address] [place], [place] [phone] documented as of this encounter Procedures Procedure Name Priority Date/Time Associated Diagnosis Comments MFM BPP SINGLE Routine 07/18/2023 3:55 PM SYNTHETIC GEM PRESS OPERATOR Gestational diabetes mellitus (GDM) in third trimester controlled on oral hypoglycemic drug Prior with demise and current in third trimester documented in this encounter Results * Maternal BPP Single (07/18/2023 3:55 PM SYNTHETIC GEM PRESS OPERATOR) Anatomical Region Laterality Modality Ultrasound 07/18/2023 3:34 PM SYNTHETIC GEM PRESS OPERATOR Impressions 07/18/2023 3:57 PM SYNTHETIC GEM PRESS OPERATOR IMPRESSION ----- 1) Normal amniotic fluid volume. 2) BPP is reassuring. Narrative 07/18/2023 3:57 PM SYNTHETIC GEM PRESS OPERATOR ?BPP ----- Pat. Name: YU RENEE ? Study Date: ??07/18/2023 3:34pm Pat. NO: ??[id number] ?Referring ??MD: RENEE BENNETT Site: ??[facility] ? Marine Design Engineer: Kirstin Gold RDMS : ??[id number] ?Age: ?? [...] RENEE Study Date: 07/18/2023 3:34pm Pat. NO: [id number] Referring MD: RENEE BENNETT Site: [facility] Marine Design Engineer: Kirstin Gold RDMS : 1995 Age: 28 [...] 2) BPP is reassuring. Jennifer Boyer MD [facility] documented in this encounter Visit Diagnoses Diagnosis Gestational diabetes mellitus (GDM) in third trimester controlled on oral hypoglycemic drug Prior with demise and current in third trimester documented in this encounter Additional Health Concerns Assessment Noted Time PHQ-9 Depression Total Score: 0 05/17/20 23 9:06 AM SYNTHETIC GEM PRESS OPERATOR documented as of this encounter Care Teams Insurance Sales Professional Relationship Specialty Start Date End Date Renee Bennett MD [address] [place] [address] [phone] PCP - General Family Medicine 07/07/20 Renee Bennett MD [address] [place] [address] Assigned PCP 08/14/[address] [place] [address] [place] [address] Clearance Diver Dietitian, Registered 06/14/23 documented as of this encounter
--- OUTSIDE RECORDS SUMMARY | 2023-08-03 16:11 | XMS_ITS | Encounter Summary ---
Author Name Unknown Organization [place] Address [address] [place] [address] Care Team Providers Care Dry Man Name Role Phone Laureano Bennett MD Primary Care Provider [phone] Laureano Bennett MD Unavailable [phone] Unavailable [phone] Reason for Referral * Diagnostic Imaging Ultrasound (Routine) - Pending Review Specialty Diagnoses / [facility] To Contact Radiology. Diagnoses Insulin controlled gestational diabetes mellitus (GDM) in third trimester History of IUFD Procedures [facility] Rayshawn Castillo MD [address] [address] Referral ID Status Reason Start Date Expiration Date V isits Requested Visits Authorized [id number] Pending Review 07/26/2023 07/25/2024 1 1 BUILDER * Diagnostic Imaging Ultrasound (Routine) - Pending Review Specialty Diagnoses / Procedures Referred By Conteloina nathan Referred To Contact Radiology. Diagnoses Insulin controlled gestational diabetes mellitus (GDM) in third trimester History of IUFD Procedures Rayshawn Jacobs MD [address] [place] [address] Referral ID Status Reason Start Date Expiration Date V isits Requested Visits Authorized [id number] Pending Review 07/26/2023 07/25/2024 1 1 BUILDER Reason for Visit * Reason Comments Ultrasound BPP-GDMA2, Hx Term I UFD Encounter Details Date Type Department Care Team (Late st Contact Info) Description 07/26/2023 8:30 AM CURB BUILDER Office Visit [facility] [address] [place] [address] Rayshawn Nnuez MD [address] [facility] [address] [place] [address] Insulin controlled gestational diabetes mellitus [...] as of this encounter Progress Notes * Rayshawn Nunez MD - 07/26/2023 8:30 AM CST Please see full imaging report from ViewPoint program under imaging tab. Rayshawn Nunez MD Maternal Medicine BUILDER documented in this encounter Nursing Notes * Beatriz Pro, GAVI - 07/26/2023 8:30 AM CST Patient reports active movement, denies pain, contractions, leaking of fluid, or bleeding. Reports blood sugar values fasting 90's and post prandial <140. Taking 19 units of Lantus. Sliding scale of Humalog as needed. Patient denies headache, visual changes, nausea/vomiting, epigastric pain related to preeclampsia. Patient thinking of induction between 37-38wks. SBAR given to MARYAM MAYERS, seetheir note in Epic. BUILDER documented in this encounter Plan of Treatment Upcoming Encounters Date Type Department Care Team (Late st Contact Info) Description 08/23/2023 Hospital Encounter [facility] Birthplace [address] [place] [address] Laureano Bennett MD [address] [place] [address] Scheduled Orders Name Type Priority Associated Diagnoses Orde r Schedule MARYAM KUHN Single Imaging Routine Insulin controlled gestational diabetes mellitus (GDM) in third trimester History of IUFD Expected: 08/01/2023 (Approximate), Expires: 05/25/2024 MFM BPP Single Imaging Routine Insulin controlled gestational diabetes mellitus (GDM) in third trimester History of IUFD Expected: 08/04/2023 (Approximate), Expires: 05/25/2024 documented as of this encounter Visit Diagnoses Diagnosis Insulin controlled gestational diabetes mellitus (GDM) in third trimester- Primary History of IUFD documented in this encounter Additional Health Concerns Assessment Noted Time PHQ-9 Depression Total Score: 0 05/17/20 9:06 AM CURB BUILDER documented as of this encounter Care Teams Dry Man Relationship Specialty Start Date End Date Laureano Bennett MD [address] [place] [address] PCP - General Family Medicine 07/07/20 Laureano Bennett MD [address] [place] [address] Assigned PCP 08/14/[address] [place] [address] [place] [address] Manager Spa Dietitian, Registered 06/14/23 documented as of this encounter
--- OUTSIDE RECORDS SUMMARY | 2023-08-03 16:11 | XMS_ITS | Encounter Summary ---
Author Name Unknown Organization [facility] Address [address] [place] [address] Care Team Providers Care Clinical Dietitian Name Role Phone Laureano Bennett MD Primary Care Provider [phone] Laureano Bennett MD Unavailable [phone] Unavailable [phone] Reason for Visit * Reason Comments Care Encounter Details Date Type Department Care Team ([facility] st Contact Info) Description 07/19/2023 4:40 PM SUPERVISOR HOT DIP PLATING Office Visit [address] [address] Laureano Bennett MD [address] [place] [address] Encounter for supervision of other normal [...] Comments Blood Pressure 110/58 07/19/2023 4:36 PM SUPERVISOR HOT DIP PLATING Pulse 92 07/19/2023 4:36 PM SUPERVISOR HOT DIP PLATING Temperature 36.1 ??C (97 ??F) 07/19/2023 4:36 PM SUPERVISOR HOT DIP PLATING Respiratory Rate - - Oxygen Saturation 97% 07/19/2023 4:36 PM SUPERVISOR HOT DIP PLATING Inhaled Oxygen Concentration - - Weight 82.1 kg (181 lb) 07/19/2023 4:36 PM SUPERVISOR HOT DIP PLATING Height - - Body Mass Index 27.12 07/15/2023 8:48 AM SUPERVISOR HOT DIP PLATING documented in this encounter Progress Notes * [...] monitor kick counts and regular BPP's at [facility]. She would like to labor in a bath tub and is meeting a provider at the [facility] to discuss options there Return in 1 week GBS at 36 weeks is planned RVISOR HOT DIP PLATING documented in this encounter Plan of Treatment Upcoming Encounters Date Type Department Care Team (Late st Contact Info) Description 08/23/2023 Hospital Encounter [facility] [address] [place] [address] Laureano Bennett MD [address] [place] [address] documented as of this encounter Procedures Procedure Name Priority Date/Time Associated Diagnosis Comments GLUCOSE ALBUMIN OB URINE Routine 07/19/2023 4:28 PM SUPERVISOR HOT DIP PLATING Encounter for supervision of other normal in third trimester documented in this encounter Results * Glucose and albumin, OB urine (07/19/2023 4:28 PM SUPERVISOR HOT DIP PLATING) Protein Albumin Urine Negative Negative mg/dL 07/19/2023 4:30 PM SUPERVISOR HOT DIP PLATING [facility] Glucose Urine Negative Negative mg/dL 07/19/2023 4:30 PM SUPERVISOR HOT DIP PLATING [facility] Urine MID-STREAM URINE SPECIMEN / Unknown Non-blood Collection / Unknown 07/19/2023 4:28 PM SUPERVISOR HOT DIP PLATING 07/19/2023 4:28 PM SUPERVISOR HOT DIP PLATING Laureano Bennett MD LAB - URINE ORDERABL [facility] [address] [facility] S. E Lab (no room number, 1st floor of clinic) [place] [address] [phone] documented in this encounter Visit Diagnoses Diagnosis Encounter for supervision of other normal in third trimester- Primary 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 documented in this encounter Additional Health Concerns Assessment Noted Time PHQ-9 Depression Total Score: 0 05/17/20 23 9:06 AM SUPERVISOR HOT DIP PLATING documented as of this encounter Care Teams Clinical Dietitian Relationship Specialty Start Date End Date Laureano Bennett MD [address] [place] [address] [phone] PCP - General Family Medicine 07/07/20 Laureano Bennett MD [address] [place] [address] [phone] Assigned PCP 08/14/[address] [place] [address] [address]ON[address] [place] [facility] [address] Airport Representative Dietitian, Registered 06/14/23 documented as of this encounter
--- OUTSIDE RECORDS SUMMARY | 2023-08-03 16:11 | XMS_ITS | Encounter Summary ---
Author Name Unknown Organization [facility] Address [address] [place] [address] Care Team Providers Care Video News Editor Name Role Phone Renee Bennett MD Primary Care Provider [phone] Renee Bennett MD Unavailable [phone] Unavailable [phone] Reason for Referral * Diagnostic Imaging Ultrasound (Routine) - Pending Review Specialty Diagnoses / Procedures Referred By Tim nathan Referred To Contact Radiology. Diagnoses Gestational diabetes mellitus (GDM) in third trimester controlled on oral hypoglycemic drug History of IUFD Procedures Maternal BPP Single Jennifer Boyer MD [address] [place] [address] [place] [address] Referral ID Status Reason Start Date Expiration Date V isits Requested Visits Authorized [id number] Pending Review 07/01/2023 06/30/2024 1 1 FACTURING TECHNICIAN Reason for Visit * Diagnostic Imaging Ultrasound (Routine) - Pending Review Specialty Diagnoses / Procedures Referred By Tim nathan Referred To Contact Radiology. Diagnoses Gestational diabetes mellitus (GDM) in third trimester controlled on oral hypoglycemic drug History of IUFD Procedures Maternal BPP Single Jennifer Boyer MD [address] [place] [address] Referral ID Status Reason Start Date Expiration Date V isits Requested Visits Authorized [id number] Pending Review 07/01/2023 06/30/2024 1 1 Encounter Details Date Type Department Care Team (Latest Contact Info) Description 07/22/2023 8:45 AM MANUFACTURING TECHNICIAN - 07/22/2023 11:59 PM MANUFACTURING TECHNICIAN Hospital Encounter [facility] [place] [address] [facility] [address] [place] [address] Sheila Jones MD [address] [place] [place] [address] Gestational diabetes mellitus (GDM) in [...] Renee Bennett MD - 07/22/2023 3:28 PM MANUFACTURING TECHNICIAN Dear Yu, Here is a summary of your recent test results: -Everything looks good and in addition baby is headdown (cephalic) which is good news as well. Thank you very much for trusting me and [facility]. Have a peaceful day. Healthy regards, Prasad Bennett MD FACTURING TECHNICIAN documented in this encounter Plan of Treatment Upcoming Encounters Date Type Department Care Team (Late st Contact Info) Description 08/23/2023 Hospital Encounter [facility] [address] [place] [address] Renee Bennett MD [address] [place] [address] documented as of this encounter Procedures Procedure Name Priority Date/Time Associated Diagnosis Comments MFM BPP SINGLE Routine 07/22/2023 9:10 AM MANUFACTURING TECHNICIAN Gestational diabetes mellitus (GDM) in third trimester controlled on oral hypoglycemic drug Prior with demise and current in third trimester documented in this encounter Results * Maternal BPP Single (07/22/2023 9:10 AM MANUFACTURING TECHNICIAN) Anatomical Region Laterality Modality Ultrasound 07/22/2023 8:54 AM MANUFACTURING TECHNICIAN Impressions 07/22/2023 9:22 AM MANUFACTURING TECHNICIAN IMPRESSION ----- 1. Brumfield intrauterine at 35w 3d gestational age here for testing. 2. The fetus is in cephalic presentation. The amniotic fluid volume is normal. 3. The BPP is 01/25. Narrative 07/22/2023 9:22 AM MANUFACTURING TECHNICIAN ?BPP ----- Pat. Name: YU RENEE ? Study Date: ??07/22/2023 8:54am Pat. NO: ??[id number] ?Referring ??MD: RENEE BENNETT Site: [facility] ? Rubber Insulator: Makeda Hassan RDMS : ??1995 ?Age: ?? [...] RENEE Study Date: 07/22/2023 8:54am Pat. NO: [id number] Referring MD: RENEE BENNETT Site: [facility] Rubber Insulator: Makeda Hassan RDMS : 1995 Age: 28 [...] The BPP is 8/8. Jennifer Boyer MD [facility] ORDERAB LES documented in this encounter Visit Diagnoses Diagnosis Gestational diabetes mellitus (GDM) in third trimester controlled on oral hypoglycemic drug Prior with demise and current in third trimester documented in this encounter Additional Health Concerns Assessment Noted Time PHQ-9 Depression Total Score: 0 05/17/20 23 9:06 AM MANUFACTURING TECHNICIAN documented as of this encounter Care Teams Video News Editor Relationship Specialty Start Date End Date Renee Bennett MD [address] [place] [address] PCP - General Family Medicine 07/07/20 Renee Bennett MD [address] [place] [address] Assigned PCP 08/14/[address] [facility] [address] [place] [address] Vfx Artist Dietitian, Registered 06/14/23 documented as of this encounter
--- OUTSIDE RECORDS SUMMARY | 2023-08-03 16:11 | XMS_ITS | Encounter Summary ---
Author Name Unknown Organization [facility] Address [address] [facility] [place] [address] Care Team Providers Care Calcine Furnace Tender Name Role Phone Laureano Bennett MD Primary Care Provider [phone] Laureano Bennett MD Unavailable [phone] Unavailable [phone] Reason for Visit * Reason Comments Ultrasound BPP-GDMA2, hx term I UFD Encounter Details Date Type Department Care Team ([facility] st Contact Info) Description 07/15/2023 12:15 PM OR DIRECTOR Office Visit [facility] [place] [address] [facility] [address] [place] [address] Rosemary Cheema MD [address] [facility] [address] [facility] [address] [place] [address] Insulin controlled gestational diabetes mellitus [...] for details of today's visit. Rosemary Cheema DIRECTOR documented in this encounter Nursing Notes * Addis Olivares, RN - 07/15/2023 12:15 PM CST Patient reports + movement, no pain, no contractions, leaking of fluid, or bleeding. Reports blood sugar values fasting >95 and 1 hr post prandial <140 with the exception of post dinner values which generally run >140. SBAR given to MARYAM MAYERS, see their note in Epic. DIRECTOR documented in this encounter Plan of Treatment Upcoming Encounters Date Type Department Care Team (Late st Contact Info) Description 08/23/2023 Hospital Encounter [facility]place [address] [place] [address] Laureano Bennett MD [facility] [place] [address] documented as of this encounter Visit Diagnoses Diagnosis Insulin controlled gestational diabetes mellitus (GDM) in third trimester- Primary Prior with demise and current in third trimester documented in this encounter Additional Health Concerns Assessment Noted Time PHQ-9 Depression Total Score: 0 05/17/20 23 9:06 AM OR DIRECTOR documented as of this encounter Care Teams Calcine Furnace Tender Relationship Specialty Start Date End Date Laureano Bennett MD [address] [place] [address] PCP - General Family Medicine 07/07/20 Laureano Bennett MD [address] [place] [address] Assigned PCP 08/14/[address] [place] [address] [place] [address] Arch Cushion Press Operator Dietitian, Registered 06/14/23 documented as of this encounter
--- OUTSIDE RECORDS SUMMARY | 2023-08-03 16:11 | XMS_ITS | Encounter Summary ---
Author Name Unknown Organization [facility] Address [address] [place] [address] Care Team Providers Care Lumber Carrier Name Role Phone Renee Bennett MD Primary Care Provider [phone] Renee Bennett MD Unavailable [phone] Unavailable [phone] Reason for Referral * Diagnostic Imaging Ultrasound (Routine) - Pending Review Specialty Diagnoses / Procedures Referred By Tim nathan Referred To Contact Radiology. Diagnoses Gestational diabetes mellitus (GDM) in third trimester controlled on oral hypoglycemic drug History of IUFD Procedures Maternal BPP Single Jennifer Boyer MD [address] [place] [address] [place] [address] Referral ID Status Reason Start Date Expiration Date V isits Requested Visits Authorized [id number] Pending Review 07/01/2023 06/30/2024 1 1 NG MACHINE SET UP OPERATOR Reason for Visit * Diagnostic Imaging Ultrasound (Routine) - Pending Review Specialty Diagnoses / Procedures Referred By Tim nathan Referred To Contact Radiology. Diagnoses Gestational diabetes mellitus (GDM) in third trimester controlled on oral hypoglycemic drug History of IUFD Procedures Maternal BPP Single Jennifer Boyer MD [address] [place] [address] Referral ID Status Reason Start Date Expiration Date V isits Requested Visits Authorized [id number] Pending Review 07/01/2023 06/30/2024 1 1 Encounter Details Date Type Department Care Team (Latest Contact Info) Description 07/15/2023 11:40 AM RULING MACHINE SET UP OPERATOR - 07/15/2023 11:59 PM RULING MACHINE SET UP OPERATOR Hospital Encounter [facility] [place] [address] [facility] [address] [place] [address] Rosemary Cheema MD [address] [facility] [address] [place] [address] Gestational diabetes mellitus (GDM) in [...] Renee Bennett MD - 07/15/2023 10:06 PM RULING MACHINE SET UP OPERATOR Dear Yu, Here is a summary of your recent test results: -Baby is head down - Good News! Thank you very much for trusting me and [facility]. Have a peaceful day. Healthy regards, Prasad Bennett MD NG MACHINE SET UP OPERATOR documented in this encounter Plan of Treatment Upcoming Encounters Date Type Department Care Team (Late st Contact Info) Description 08/23/2023 Hospital Encounter [facility] [address] [place] [phone] Renee Bennett MD [address] [place], [place] [phone] documented as of this encounter Procedures Procedure Name Priority Date/Time Associated Diagnosis Comments MFM BPP SINGLE Routine 07/15/2023 12:07 PM RULING MACHINE SET UP OPERATOR Gestational diabetes mellitus (GDM) in third trimester controlled on oral hypoglycemic drug Prior with demise and current in third trimester documented in this encounter Results * Maternal BPP Single (07/15/2023 12:07 PM RULING MACHINE SET UP OPERATOR) Anatomical Region Laterality Modality Ultrasound 07/15/2023 11:4 0 AM RULING MACHINE SET UP OPERATOR Impressions 07/15/2023 2:59 PM RULING MACHINE SET UP OPERATOR IMPRESSION ----- 1) Br[place] intrauterine at 34w 3d gestational age. 2) The BPP is reassuring. 3) The amniotic fluid volume appeared normal. Narrative 07/15/2023 2:59 PM RULING MACHINE SET UP OPERATOR ?BPP ----- Pat. Name: YU RENEE ? Study Date: ??07/15/2023 11:40am Pat. NO: ??[id number] ?Referring ??MD: RENEE BENNETT Site: [facility] ? Cargo Services Coordinator: Makeda Hassan RDMS : ??1995 ?Age: ?? [...] RENEE Study Date: 07/15/2023 11:40am Pat. NO: [id number] Referring MD: RENEE BENNETT Site: [facility] Cargo Services Coordinator: Makeda Hassan RDMS : 1995 Age: 28 [...] fluid volume appeared normal. Jennifer Boyer MD [facility] ORDERAB LES documented in this encounter Visit Diagnoses Diagnosis Gestational diabetes mellitus (GDM) in third trimester controlled on oral hypoglycemic drug Prior with demise and current in third trimester documented in this encounter Additional Health Concerns Assessment Noted Time PHQ-9 Depression Total Score: 0 05/17/20 23 9:06 AM RULING MACHINE SET UP OPERATOR documented as of this encounter Care Teams Lumber Carrier Relationship Specialty Start Date End Date Renee Bennett MD [address] [place] [address] PCP - General Family Medicine 07/07/20 Renee Bennett MD [address] [place] [address] Assigned PCP 08/14/[address] [place] [address] Epic Willow Analyst Dietitian, Registered 06/14/23 documented as of this encounter
--- OUTSIDE RECORDS SUMMARY | 2023-08-03 16:11 | XMS_ITS | Encounter Summary ---
Author Name Unknown Organization [place] [facility] Address [address] [facility] [place] [address] Care Team Providers Care Retail Field Representative Name Role Phone Laureano Bennett MD Primary Care Provider Laureano Bennett MD Unavailable [phone] Unavailable [phone] Encounter Details Date Type Department Care Team (Latest Contact Info) Description 07/26/2023 Travel Social History Tobacco Use Types Packs/Day [...] st Contact Info) Description 08/23/2023 Hospital Encounter [facility] [address] [place] [address] Laureano Bennett MD [address] [place] [address] documented as of this encounter Visit Diagnoses Not on filedocumented in this encounter Additional Health Concerns Assessment Noted Time PHQ-9 Depression Total Score: 0 05/17/20 23 9:06 AM COMPUTED TOMOGRAPHY TECHNICIAN documented as of this encounter Care Teams Retail Field Representative Relationship Specialty Start Date End Date Laureano Bennett MD [address] [place] [address] PCP - General Family Medicine 07/07/20 Laureano Bennett MD [address] [place] [address] Assigned PCP 08/14/[address] [facility] Regi [place] [address] Lumber Cutter Dietitian, Registered 06/14/23 documented as of this encounter
--- OUTSIDE RECORDS SUMMARY | 2023-08-03 16:11 | XMS_ITS | Encounter Summary ---
Author Name Unknown Organization [facility] Address [facility] [place] [address] Care Team Providers Care Beverage Server Name Role Phone Laureano Bennett MD Primary Care Provider [phone] Laureano Bennett MD Unavailable [phone] Unavailable [phone] Encounter Details Date Type Department Care Team ([facility] st Contact Info) Description 07/18/2023 4:00 PM NECKTIE CENTRALIZING MACHINE OPERATOR Office Visit [facility] [place] [address] [facility] [address] [place] [address] Jennifer Boyer MD [address] [place] [address] [address] [place] [address] Tyshawn Mccurdy MD [address] [place] [address] [address] [place] [address] Insulin controlled gestational diabetes mellitus [...] for details of today's [facility] at the [facility]. Tyshawn Mccurdy MD Maternal- Medicine TIE CENTRALIZING MACHINE OPERATOR documented in this encounter Plan of Treatment Upcoming Encounters Date Type Department Care Team (Late st Contact Info) Description 08/23/[address] [facility] [address] [place] [address] Laureano Bennett MD [address] [place] [address] documented as of this encounter Visit Diagnoses Diagnosis Insulin controlled gestational diabetes mellitus (GDM) in third trimester- Primary documented in this encounter Additional Health Concerns Assessment Noted Time PHQ-9 Depression Total Score: 0 05/17/20 23 9:06 AM NECKTIE CENTRALIZING MACHINE OPERATOR documented as of this encounter Care Teams Beverage Server Relationship Specialty Start Date End Date Laureano Bennett MD [address] [place] [address] PCP - General Family Medicine 07/07/20 Laureano Bennett MD [address] [place] [address] Assigned PCP 08/14/[address] [place] [address] [place] [address] Waste Treatment Operator Dietitian, Registered 06/14/23 documented as of this encounter
--- OUTSIDE RECORDS SUMMARY | 2023-08-03 16:11 | XMS_ITS | Encounter Summary ---
Author Name Unknown Organization [place] Address [address] [place] [address] Care Team Providers Care Backer Up Name Role Phone Laureano Bennett MD Primary Care Provider [phone] Laureano Bennett MD Unavailable [phone] Unavailable [phone] Reason for Referral * Diagnostic Imaging Ultrasound (Routine) - Pending Review Specialty Diagnoses / Procedures Referred By Tim nathan Referred To Contact Radiology. Diagnoses Gestational diabetes mellitus (GDM) in third trimester controlled on oral hypoglycemic drug History of IUFD Procedures Maternal US Comprehensive Single F/U Jennifer Boyer MD [address] [address] Referral ID Status Reason Start Date Expiration Date V isits Requested Visits Authorized [id number] Pending Review 07/01/2023 06/30/2024 1 1 ANALYST Reason for Visit * Diagnostic Imaging Ultrasound (Routine) - Pending Review Specialty Diagnoses / Procedures Referred By Tim nathan Referred To Contact Radiology. Diagnoses Gestational diabetes mellitus (GDM) in third trimester controlled on oral hypoglycemic drug History of IUFD Procedures Maternal US Comprehensive Single F/U Jennifer Boyer MD [address] [place] [address] Referral ID Status Reason Start Date Expiration Date V isits Requested Visits Authorized [id number] Pending Review 07/01/2023 06/30/2024 1 1 Encounter Details Date Type Department Care Team (Latest Contact Info) Description 07/29/2023 11:45 AM ERP ANALYST - 07/29/2023 11:59 PM ERP ANALYST Hospital Encounter [facility] Maternal Medicine [facility] [address] [facility] [address] [place] [address] Jennifer Boyer MD [address] [facility] [address] [place] [address] Gestational diabetes mellitus (GDM) in [...] st Contact Info) Description 08/23/2023 Hospital Encounter [facility] [address] [place] [address] Laureano Bennett MD [address] [place] [address] documented as of this encounter Procedures Procedure Name Priority Date/Time Associated Diagnosis Comments [facility] US COMPREHENSIVE SINGLE F/U Routine 07/29/2023 1:32 PM ERP ANALYST Gestational diabetes mellitus (GDM) in third trimester controlled on oral hypoglycemic drug Prior with demise and current in third trimester documented in this encounter Results * Maternal US Comprehensive Single F/U (07/29/2023 1:32 PM ERP ANALYST) Anatomical Region Laterality Modality Ultrasound 07/29/2023 11:4 6 AM ERP ANALYST Impressions 07/29/2023 1:43 PM ERP ANALYST IMPRESSION ----- 1) Brumfield intrauterine at 36w 3d gestational age. 2) None of the anomalies commonly detected by ultrasound were evident in the anatomic survey described above. 3) Growth parameters and estimated weight were consistent with an appropriate for gestation age pattern of growth. 4) The amniotic fluid volume appeared normal. 5) The BPP was reassuring. Narrative 07/29/2023 1:43 PM ERP ANALYST ?Comp Follow Up ----- Pat. Name: YU RENEE ? Study Date: ??07/29/2023 11:46am Pat. NO: ??[id number] ?Referring ??MD: ABIDA ROMERO Site: ??[facility] ? Remelt Pan Tank Operator: Dhara Chase RDMS : ??1995 ?Age: ?? [...] 6 lb 6 ?oz EFW by ?Hadlock ([id number]) Head / Face / Neck Biometry: Break And Load Operator ? 4.1 ? mm CM ?6.8 ? mm ANATOMY ----- The following structures appear normal: Head / Neck ? Cranium. Head size. Head shape. Lateral ventricles. Midline falx. Cavum septi pellucidi. Cerebellum. Cisterna magna. Thalami. Face ? Lips. Profile. Nose. Maxilla. Mandible. Orbits. Lens. Heart / Thorax ?4-chamber view. RVOT view. LVOT view. Aortic arch view. Bicaval view. 5-viwlfz-dgczrzw view. ? Diaphragm. Abdomen ? Stomach. Kidneys. [...] Comp Follow Up ----- Pat. Name: YU RENEE Study Date: 07/29/2023 11:46am Pat. NO: [id number] Referring MD: ABIDA ROMERO Site: [facility] Remelt Pan Tank Operator: Dhara Chase RDMS : 1995 Age: 28 [...] 6 lb 6 oz EFW by Hadlock ([id number]) Head / Face / Neck Biometry: Break And Load Operator 4.1 mm CM 6.8 mm ANATOMY ----- The following structures appear normal: Head / Neck Cranium. Head size. Head shape.Lateral ventricles. Midline falx. Cavum septi pellucidi. Cerebellum.Cisterna magna. Thalami. Face Lips. Profile. Nose. Maxilla.Mandible. Orbits. Lens. Heart / Thorax 4-chamber view. RVOT view. LVOT view.Aortic arch view. Bicaval view. 4-lcipxe-fgiikul view. Diaphragm. Abdomen Stomach. Kidneys. Bladder. Spine [...] The BPP was reassuring. Jennifer Boyer MD [facility] US ORDERAB LES documented in this encounter Visit Diagnoses Diagnosis Gestational diabetes mellitus (GDM) in third trimester controlled on oral hypoglycemic drug Prior with demise and current in third trimester documented in this encounter Additional Health Concerns Assessment Noted Time PHQ-9 Depression Total Score: 0 05/17/20 23 9:06 AM ERP ANALYST documented as of this encounter Care Teams Backer Up Relationship Specialty Start Date End Date Laureano Bennett MD [address] [place] [id number] PCP - General Family Medicine 07/07/20 Laureano Bennett MD [address] [place] [address] Assigned PCP 08/14/[address] [facility] [place] [address] [place] [address] Nut Feeder Dietitian, Registered 06/14/23 documented as of this encounter
--- OUTSIDE RECORDS SUMMARY | 2023-08-03 16:11 | XMS_ITS | Encounter Summary ---
Author Name Unknown Organization [place] Address [address] [facility] [place] [address] Care Team Providers Care Instructor Adjunct Pharmacy Technician Name Role Phone Laureano Bennett MD Primary Care Provider [phone] Laureano Bennett MD Unavailable [phone] Unavailable [phone] Reason for Visit * Reason Comments Ultrasound BPP-GDMA2, hx term I UFD Encounter Details Date Type Department Care Team ([facility] st Contact Info) Description 07/22/2023 9:15 AM BEARING PRESS MACHINE OPERATOR Office Visit [facility] Maternal Medicine Center [place] [address] [facility] [address] [place] [address] Sheila Jones MD [address] [address] [place], [place] [address] Insulin controlled gestational diabetes mellitus (GDM) in [...] for details of today's visit. Sheila Jones ING PRESS MACHINE OPERATOR documented in this encounter Nursing Notes * Addis Olivares RN - 07/22/2023 9:15 AM CST Patient reports + movement, no pain, no contractions, leaking of fluid, or bleeding. Reports blood sugar values fasting >95 and 1 hr post prandial <140 with the exception of post dinner values which generally run >140. SBAR given to MARYAM MAYERS, see their note in Epic. ING PRESS MACHINE OPERATOR documented in this encounter Plan of Treatment Upcoming Encounters Date Type Department Care Team (Late st Contact Info) Description 08/23/2023 Hospital Encounter [facility] [address] [place] [address] Laureano Bennett MD [address] [place] [address] documented as of this encounter Visit Diagnoses Diagnosis Insulin controlled gestational diabetes mellitus (GDM) in third trimester- Primary History of IUFD documented in this encounter Additional Health Concerns Assessment Noted Time PHQ-9 Depression Total Score: 0 05/17/20 23 9:06 AM BEARING PRESS MACHINE OPERATOR documented as of this encounter Care Teams Instructor Adjunct Pharmacy Technician Relationship Specialty Start Date End Date Laureano Bennett MD [address] [place] [address] PCP - General Family Medicine 07/07/20 Laureano Bennett MD [address] [place] [address] Assigned PCP 08/14/[address] [place] [address] [place] [address] Tack Driller Dietitian, Registered 06/14/23 documented as of this encounter
--- OUTSIDE RECORDS SUMMARY | 2023-08-03 16:11 | XMS_ITS | Encounter Summary ---
Author Name Unknown Organization [place] Address [address] [facility] [place] [address] Care Team Providers Care Broacher Name Role Phone Laureano Bennett MD Primary Care Provider [phone] Laureano Bennett MD Unavailable [phone] Unavailable [phone] Encounter Details Date Type Department Care [...] st Contact Info) Description 08/23/2023 Hospital Encounter [facility] Birthplace [address] [place] [address] Laureano Bennett MD [address] [place] [address] documented as of this encounter Visit Diagnoses Not on filedocumented in this encounter Additional Health Concerns Assessment Noted Time PHQ-9 Depression Total Score: 0 05/17/20 23 9:06 AM POWDER GUARD documented as of this encounter Care Teams Broacher Relationship Specialty Start Date End Date Laureano Bennett MD [address] [place] [address] PCP - General Family Medicine 07/07/20 Laureano Bennett MD [address] [place] [address] Assigned PCP 08/14/[address] [facility] [place] [address] School Inspector Dietitian, Registered 06/14/23 documented as of this encounter
--- OUTSIDE RECORDS SUMMARY | 2023-08-03 16:11 | XMS_ITS | Encounter Summary ---
Author Name Unknown Organization [place] Address [address] [place] [address] Care Team Providers Care Drywaller Name Role Phone Renee Bennett MD Primary Care Provider [phone] Renee Bennett MD Unavailable [phone] Unavailable [phone] Reason for Referral * Diagnostic Imaging Ultrasound (Routine) - Pending Review Specialty Diagnoses / Procedures Referred By Tim nathan Referred To Contact Radiology. Diagnoses Gestational diabetes mellitus (GDM) in third trimester controlled on oral hypoglycemic drug History of IUFD Procedures Maternal BPP Single Jennifer Boyer MD [address] [place] [address] Referral ID Status Reason Start Date Expiration Date V isits Requested Visits Authorized [id number] Pending Review 07/01/2023 06/30/2024 1 1 MANAGER Reason for Visit * Diagnostic Imaging Ultrasound (Routine) - Pending Review Specialty Diagnoses / Procedures Referred By Tim nathan Referred To Contact Radiology. Diagnoses Gestational diabetes mellitus (GDM) in third trimester controlled on oral hypoglycemic drug History of IUFD Procedures Maternal BPP Single Jennifer Boyer MD [address] [place] [address] Referral ID Status Reason Start Date Expiration Date V isits Requested Visits Authorized [id number] Pending Review 07/01/2023 06/30/2024 1 1 Encounter Details Date Type Department Care Team (Latest Contact Info) Description 07/26/2023 8:00 AM SHIP MANAGER - 07/26/2023 11:59 PM SHIP MANAGER Hospital Encounter [facility] Maternal Medicine Center [place] [address] [facility] [address] [place] [address] Rayshawn Nunez MD [address] [place] [address] Gestational diabetes mellitus (GDM) in [...] st Contact Info) Description 08/23/2023 Hospital Encounter [facility] Birthplace [address] [place] [address] Renee Bennett MD [address] [place] [id number] documented as of this encounter Procedures Procedure Name Priority Date/Time Associated Diagnosis Comments MFM BPP SINGLE Routine 07/26/2023 8:15 AM SHIP MANAGER Gestational diabetes mellitus (GDM) in third trimester controlled on oral hypoglycemic drug Prior with demise and current in third trimester documented in this encounter Results * Maternal BPP Single (07/26/2023 8:15 AM SHIP MANAGER) Anatomical Region Laterality Modality Ultrasound 07/26/2023 7:52 AM SHIP MANAGER Impressions 07/26/2023 8:17 AM SHIP MANAGER IMPRESSION ----- 1. Brumfield intrauterine at 36w 0d gestational age here for testing. 2. The fetus is in cephalic presentation. The amniotic fluid volume is normal. 3. The BPP is 01/25. Narrative 07/26/2023 8:17 AM SHIP MANAGER ?BPP ----- Pat. Name: YU RENEE ? Study Date: ??07/26/2023 7:52am Pat. NO: ??[id number] ?Referring ??MD: RENEE BENNETT Site: ??[facility] ? Licensed Psychologist Manager: Makeda Hassan RDMS : ??1995 ?Age: ?? [...] - 07/26/2023 BPP ----- Pat. Name: YU RENEE Study Date: 07/26/2023 7:52am Pat. NO: [id number] Referring MD: RENEE BENNETT Site: [facility] Licensed Psychologist Manager: Makeda Hassan RDMS : 1995 Age: 28 [...] BPP is 8/8. Jennifer Boyer MD [facility] US ORDERAB LES documented in this encounter Visit Diagnoses Diagnosis Gestational diabetes mellitus (GDM) in third trimester controlled on oral hypoglycemic drug Prior with demise and current in third trimester documented in this encounter Additional Health Concerns Assessment Noted Time PHQ-9 Depression Total Score: 0 05/17/20 23 9:06 AM SHIP MANAGER documented as of this encounter Care Teams Drywaller Relationship Specialty [place] [address] [place] [address] PCP - General Family Medicine 07/07/20 Renee Bennett MD [address] [place] [address] Assigned PCP 08/14/[address] [place] [address] [place] [address] Advice Nurse Dietitian, Registered 06/14/23 documented as of this encounter
--- OUTSIDE RECORDS SUMMARY | 2023-08-03 16:12 | XMS_ITS | Encounter Summary ---
Author Name Unknown Organization [facility] Address [address] [facility] [place] [address] Care Team Providers Care Timing Inspector Name Role Phone Laureano Bennett MD Primary Care Provider [phone] Laureano Bennett MD Unavailable [phone] Unavailable [phone] Encounter Details Date Type Department Care [...] Contact Info) Description 08/23/[address] [facility] Birth[facility] [address] [place] [address] Laureano Bennett MD [address] [place] [phone] documented as of this encounter Visit Diagnoses Not on filedocumented in this encounter Additional Health Concerns Assessment Noted Time PHQ-9 Depression Total Score: 0 05/17/20 23 9:06 AM TITLE ONE READING TEACHER documented as of this encounter Care Teams Timing Inspector Relationship Specialty Start Date End Date Laureano Bennett MD [address] [place] [address] PCP - General Family Medicine 07/07/20 Laureano Bennett MD [address] [place] [address] Assigned PCP 08/14/[address] [facility] [place] [address] [address] [address] Therapy Director Dietitian, Registered 06/14/23 documented as of this encounter
--- OUTSIDE RECORDS SUMMARY | 2023-08-03 16:12 | XMS_ITS | Encounter Summary ---
Author Name Unknown Organization [place] Address [address] [place] [address] Care Team Providers Care Parking Enforcer Name Role Phone Renee Bennett MD Primary Care Provider [phone] Renee Bennett MD Unavailable [phone] Unavailable [phone] Reason for Referral * Diagnostic Imaging Ultrasound (Routine) - Pending Review Specialty Diagnoses / Procedures Referred By Tim nathan Referred To Contact Radiology. Diagnoses Gestational diabetes mellitus (GDM) in third trimester controlled on oral hypoglycemic drug History of IUFD Procedures Maternal BPP Single Jennifer Boyer MD [address] [address] Referral ID Status Reason Start Date Expiration Date V isits Requested Visits Authorized [id number] Pending Review 07/01/2023 06/30/2024 1 1 CTOR OF GOLF Reason for Visit * Diagnostic Imaging Ultrasound (Routine) - Pending Review Specialty Diagnoses / Procedures Referred By Tim nathan Referred To Contact Radiology. Diagnoses Gestational diabetes mellitus (GDM) in third trimester controlled on oral hypoglycemic drug History of IUFD Procedures Maternal BPP Single Jennifer Boyer MD [address] [place] [address] Referral ID Status Reason Start Date Expiration Date V isits Requested Visits Authorized [id number] Pending Review 07/01/2023 06/30/2024 1 1 Encounter Details Date Type Department Care Team (Latest Contact Info) Description 07/04/2023 3:15 PM DIRECTOR OF GOLF - 07/04/2023 11:59 PM DIRECTOR OF GOLF Hospital Encounter [facility] Maternal Medicine Center [place] [address] [facility] [address] [place] [address] Rosemary Cheema MD [address] [facility] [address] [place] [address] Gestational diabetes mellitus (GDM) in [...] st Contact Info) Description 08/23/2023 Hospital Encounter [facility] Birth[facility] [address] [place] [address] [place] [address] [place] [address] documented as of this encounter Procedures Procedure Name Priority Date/Time Associated Diagnosis Comments MFM BPP SINGLE Routine 07/04/2023 3:38 PM DIRECTOR OF GOLF Gestational diabetes mellitus (GDM) in third trimester controlled on oral hypoglycemic drug Prior with demise and current in third trimester documented in this encounter Results * Maternal BPP Single (07/04/2023 3:38 PM DIRECTOR OF GOLF) Anatomical Region Laterality Modality Ultrasound 07/04/2023 3:18 PM DIRECTOR OF GOLF Impressions 07/04/2023 5:32 PM DIRECTOR OF GOLF IMPRESSION ----- 1) Brumfield intrauterine at 32w 6d gestational age. 2) The BPP is reassuring. 3) The amniotic fluid volume appeared normal. Narrative 07/04/2023 5:32 PM DIRECTOR OF GOLF ?BPP ----- Pat. Name: YU RENEE ? Study Date: ??07/04/2023 3:18pm Pat. NO: ??[id number] ?Referring ??MD: RENEE BENNETT Site: ??[facility] ? Firer Helper: Renetta Garcia RDMS : ??1995 ?Age: ?? [...] RENEE Study Date: 07/04/2023 3:18pm Pat. NO: [id number] Referring MD: RENEE BENNETT Site: [facility] Firer Helper: Renetta Garcia RDMS : 1995 Age: 27 [...] fluid volume appeared normal. Jennifer Boyer MD [facility] US ORDERAB LES documented in this encounter Visit Diagnoses Diagnosis Gestational diabetes mellitus (GDM) in third trimester controlled on oral hypoglycemic drug Prior with demise and current in third trimester documented in this encounter Additional Health Concerns Assessment Noted Time PHQ-9 Depression Total Score: 0 05/17/20 23 9:06 AM DIRECTOR OF GOLF documented as of this encounter Care Teams Parking Enforcer Relationship Specialty Start Date End Date Renee Bennett MD [address] [place] [address] PCP - General Family Medicine 07/07/20 Renee Bennett MD [address] [place] [address] Assigned PCP 08/14/[address] [place] [address] [place] [address] Baseball Sewer Hand Dietitian, Registered 06/14/23 documented as of this encounter
--- OUTSIDE RECORDS SUMMARY | 2023-08-03 16:12 | XMS_ITS | Encounter Summary ---
Author Name Unknown Organization [place] Address [address] [place] [address] Care Team Providers Care Cone Operator Name Role Phone Laureano Bennett MD Primary Care Provider [phone] Laureano Bennett MD Unavailable [phone] Unavailable [phone] Reason for Visit * Reason Comments Ultrasound BPP-GDMA2, Hx term I UFD Encounter Details Date Type Department Care Team ([facility] st Contact Info) Description 2023 8:30 AM TASSEL MAKING MACHINE OPERATOR Office Visit [facility] Maternal Medicine Center [place] [address] [facility] [address] [place] [address] Rayshawn Nunez MD [address] [facility] [address] [place] [address] Insulin controlled gestational diabetes mellitus [...] Beatriz Pro, GAVI - 2023 8:30 AM TASSEL MAKING MACHINE OPERATOR Images from the original note were not [...] Where can you learn more? Go to https://[email or web address].net/patiented Enter U048 in the search box to learn more about Counting Your Baby's Kicks: Care Instructions. Current as of: December 28, 2022 Content Version: 13.8 ?? [employer]. Care instructions adapted under license by your healthcare professional. If you have questions about a medical condition or this instruction, always ask your healthcare professional. [employer] disclaims any warranty or liability for your use of this information. EL MAKING MACHINE OPERATOR documented in this encounter Progress Notes * Rayshawn Nunez MD - 2023 8:30 AM CST Please see full imaging report from ViewPoint program under imaging tab. Breech. Rayshawn Nunez MD Maternal Medicine EL MAKING MACHINE OPERATOR documented in this encounter Nursing [...] MARYAM MAYERS, see their note in Epic. EL MAKING MACHINE OPERATOR documented in this encounter Plan of Treatment Upcoming Encounters Date Type Department Care Team (Late st Contact Info) Description 08/23/2023 Hospital Encounter [facility] Birth[facility] [address] [place] [address] Laureano Bennett MD [address] [place] [address] documented as of this encounter Visit Diagnoses Diagnosis Insulin controlled gestational diabetes mellitus (GDM) in third trimester- Primary documented in this encounter Additional Health Concerns Assessment Noted Time PHQ-9 Depression Total Score: 0 05/17/20 9:06 AM TASSEL MAKING MACHINE OPERATOR documented as of this encounter Care Teams Cone Operator Relationship Specialty Start Date End Date Laureano Bennett MD [address] [place] [address] PCP - General Family Medicine 07/07/20 Laureano Bennett MD [address] [place] [address] Assigned PCP 08/14/[address] [place] [address] [place] [address] Cost Estimating Manager Dietitian, Registered 06/14/23 documented as of this encounter
--- OUTSIDE RECORDS SUMMARY | 2023-08-03 16:12 | XMS_ITS | Encounter Summary ---
Author Name Unknown Organization [place] Address [address] [place] [address] Care Team Providers Care Meal Room Hand Name Role Phone Renee Bennett MD Primary Care Provider [phone] Renee Bennett MD Unavailable [phone] Unavailable [phone] Reason for Referral * Diagnostic Imaging Ultrasound (Routine) - Pending Review Specialty Diagnoses / Procedures Referred By Tim nathan Referred To Contact Radiology. Diagnoses Gestational diabetes mellitus (GDM) in third trimester controlled on oral hypoglycemic drug History of IUFD Procedures Maternal BPP Single Jennifer Boyer MD [address] [place] [address] [place] [address] Referral ID Status Reason Start Date Expiration Date V isits Requested Visits Authorized [id number] Pending Review 07/01/2023 06/30/2024 1 1 ING PROGRAM MANAGER Reason for Visit * Diagnostic Imaging Ultrasound (Routine) - Pending Review Specialty Diagnoses / Procedures Referred By Tim nathan Referred To Contact Radiology. Diagnoses Gestational diabetes mellitus (GDM) in third trimester controlled on oral hypoglycemic drug History of IUFD Procedures Maternal BPP Single Jennifer Boyer MD [address] [place] [address] Referral ID Status Reason Start Date Expiration Date V isits Requested Visits Authorized [id number] Pending Review 07/01/2023 06/30/2024 1 1 Encounter Details Date Type Department Care Team (Latest Contact Info) Description 2023 8:00 AM NURSING PROGRAM MANAGER - 2023 11:59 PM NURSING PROGRAM MANAGER Hospital Encounter [facility] [place] [address] [facility] [address] [place] [phone] Rayshawn Nunez MD [address] [facility] [address] [place] [address] Gestational diabetes mellitus (GDM) in [...] Renee Bennett MD - 2023 10:29 AM NURSING PROGRAM MANAGER Dear Yu, Here is a summary of your recent test results: Your biophysical profile looks good and we can further discuss Regarding breech presentation at your next visit. Thank you very much for trusting me and [facility]. Have a peaceful day. Healthy regards, Prasad Bennett MD ING PROGRAM MANAGER documented in this encounter Plan of Treatment Upcoming Encounters Date Type Department Care Team (Late st Contact Info) Description 08/23/2023 Hospital Encounter [facility] [address] [place] [address] Renee Bennett MD [address] [place] [address] documented as of this encounter Procedures Procedure Name Priority Date/Time Associated Diagnosis Comments MFM BPP SINGLE Routine 2023 8:41 AM NURSING PROGRAM MANAGER Gestational diabetes mellitus (GDM) in third trimester controlled on oral hypoglycemic drug Prior with demise and current in third trimester documented in this encounter Results * Maternal BPP Single (2023 8:41 AM NURSING PROGRAM MANAGER) Anatomical Region Laterality Modality Ultrasound 2023 8:14 AM NURSING PROGRAM MANAGER Impressions 2023 8:44 AM NURSING PROGRAM MANAGER IMPRESSION ----- 1. [place] intrauterine at 34w 0d gestational age here for testing. 2. The fetus is in BREECH presentation. The amniotic fluid volume is normal. 3. The BPP is 01/25. Narrative 2023 8:44 AM NURSING PROGRAM MANAGER ?BPP ----- Pat. Name: YU RENEE ? Study Date: ??2023 8:14am Pat. NO: ??[id number] ?Referring ??MD: RENEE BENNETT Site: [facility] ? Pay Station Attendant: Kirstin Gold RDMS : ??1995 ?Age: ?? [...] RENEE Study Date: 2023 8:14am Pat. NO: [id number] Referring MD: RENEE BENNETT Site: [facility] Pay Station Attendant: Kirstin Gold RDMS : 1995 Age: 28 [...] The BPP is 01/25. Jennifer Boyer MD IMG [facility] US ORDERAB LES documented in this encounter Visit Diagnoses Diagnosis Gestational diabetes mellitus (GDM) in third trimester controlled on oral hypoglycemic drug Prior with demise and current in third trimester documented in this encounter Additional Health Concerns Assessment Noted Time PHQ-9 Depression Total Score: 0 05/17/20 23 9:06 AM NURSING PROGRAM MANAGER documented as of this encounter Care Teams Meal Room Hand Relationship Specialty Start Date End Date Renee Bennett MD [address] [place] [address] [id number] PCP - General Family Medicine 07/07/20 Renee Bennett MD [address] [place] [address] Assigned PCP 08/14/[address] [facility] [address] [place] [address] Manager Fraud Dietitian, Registered 06/14/23 documented as of this encounter
--- OUTSIDE RECORDS SUMMARY | 2023-08-03 16:12 | XMS_ITS | Encounter Summary ---
Author Name Unknown Organization [place] Address [address] [place] [address] Care Team Providers Care Restorative Aide Name Role Phone Laureano Bennett MD Primary Care Provider [phone] Laureano Bennett MD Unavailable [phone] Unavailable [phone] Encounter Details Date Type Department Care [...] st Contact Info) Description 08/23/2023 Hospital Encounter [facility] [address] [place] [address] Laureano Bennett MD [address] [place] [address] [phone] documented as of this encounter Visit Diagnoses Not on filedocumented in this encounter Additional Health Concerns Assessment Noted Time PHQ-9 Depression Total Score: 0 05/17/20 23 9:06 AM AFTER SCHOOL PROGRAM ASSISTANT documented as of this encounter Care Teams Restorative Aide Relationship Specialty Start Date End Date Laureano Bennett MD [address] [place] [address] PCP - General Family Medicine 07/07/20 Laureano Bennett MD [address] [place] [address] Assigned PCP 08/14/[address] [facility] [place] [address] [place] [address] Factory Worker Dietitian, Registered 06/14/23 documented as of this encounter
--- OUTSIDE RECORDS SUMMARY | 2023-08-03 16:12 | XMS_ITS | Encounter Summary ---
Author Name Unknown Organization [place] Address [address] [facility] [place] [address] Care Team Providers Care Electrical Checkout Mechanic Name Role Phone Laureano Bennett MD Primary Care Provider Laureano Bennett MD Unavailable [phone] Unavailable [phone] Encounter Details Date Type Department Care [...] Contact Info) Description 08/23/[address] [facility] Birth[facility] [address] [place] [address] Laureano Bennett MD [address] [place] [address] [id number] documented as of this encounter Visit Diagnoses Not on filedocumented in this encounter Additional Health Concerns Assessment Noted Time PHQ-9 Depression Total Score: 0 05/17/20 23 9:06 AM SENIOR CLINICAL DATA ANALYST documented as of this encounter Care Teams Electrical Checkout Mechanic Relationship Specialty Start Date End Date Laureano Bennett MD [address] [place] [address] PCP - General Family Medicine 07/07/20 Laureano Bennett MD [address] [place] [address] Assigned PCP 08/14/[address] [facility] [place] [facility] [address] [place] [address] Language Specialist Dietitian, Registered 06/14/23 documented as of this encounter
--- OUTSIDE RECORDS SUMMARY | 2023-08-03 16:12 | XMS_ITS | Encounter Summary ---
Author Name Unknown Organization [place] Address [address] [facility] [place] [address] Care Team Providers Care Filter Changing Technician Name Role Phone Laureano Bennett MD Primary Care Provider [phone] Laureano Bennett MD Unavailable [phone] Unavailable [phone] Reason for Visit * Reason Onset Date Comments Decreased Movement 07/08/2023 Encounter Details Date Type Department Care Team ([facility] Contact Info) Description 07/08/[address] [facility] Maternal Medicine Center [place] [address] [facility] [address] [place] [address] Chyna Garcia RN Decreased Movement [...] primary OB clinic and to come to [facility] delivery [facility] for an NST. Pt verbalized understanding. Chyna Garcia RN NERY OPERATOR COKING documented in this encounter Plan of Treatment Upcoming Encounters Date Type Department Care Team (Late st Contact Info) Description 08/23/2023 Hospital Encounter [facility] [address] [place] [address] Laureano Bennett MD [address] [place] [address] documented as of this encounter Visit Diagnoses Not on filedocumented in this encounter Additional Health Concerns Assessment Noted Time PHQ-9 Depression Total Score: 0 05/17/20 23 9:06 AM REFINERY OPERATOR COKING documented as of this encounter Care Teams Filter Changing Technician Relationship Specialty Start Date End Date Laureano Bennett MD [address] [place] [address] PCP - General Family Medicine 07/07/20 [place] [address] [place] [address] Assigned PCP 08/14/[address] [facility] [address] [place] [address] Lamp Inspector Dietitian, Registered 06/14/23 documented as of this encounter
--- OUTSIDE RECORDS SUMMARY | 2023-08-03 16:12 | XMS_ITS | Encounter Summary ---
Author Name Unknown Organization [place] Address [address] [place] [address] Care Team Providers Care Shaper And Presser Name Role Phone Renee Bennett MD Primary Care Provider [phone] Renee Bennett MD Unavailable [phone] Unavailable Reason for Referral * Diagnostic Imaging Ultrasound (Routine) - Pending Review Specialty Diagnoses / Procedures Referred By Tim nathan Referred To Contact Radiology. Diagnoses Gestational diabetes mellitus (GDM) in third trimester controlled on oral hypoglycemic drug History of IUFD Procedures Maternal BPP Single Jennifer Boyer MD [address] [address] Referral ID Status Reason Start Date Expiration Date V isits Requested Visits Authorized [id number] Pending Review 07/01/2023 06/30/2024 1 1 HOUSEKEEPER Reason for Visit * Diagnostic Imaging Ultrasound (Routine) - Pending Review Specialty Diagnoses / Procedures Referred By Tim nathan Referred To Contact Radiology. Diagnoses Gestational diabetes mellitus (GDM) in third trimester controlled on oral hypoglycemic drug History of IUFD Procedures Maternal BPP Single Jennifer Boyer MD [address] [place] [address] Referral ID Status Reason Start Date Expiration Date V isits Requested Visits Authorized [id number] Pending Review 07/01/2023 06/30/2024 1 1 Encounter Details Date Type Department Care Team (Latest Contact Info) Description 07/06/2023 3:30 PM MAID HOUSEKEEPER - 07/06/2023 11:59 PM MAID HOUSEKEEPER Hospital Encounter [facility] Maternal Medicine [facility] [place] [address] [facility] [address] [place] [address] Tyshawn Mccurdy MD [address] [facility] [address] [place] [address] Gestational diabetes mellitus (GDM) in [...] Contact Info) Description 08/23/2023 Hospital Encounter [facility] Birthplace [address] [place] [address] [place] [address] [place] [address] documented as of this encounter Procedures Procedure Name Priority Date/Time Associated Diagnosis Comments MFM BPP SINGLE Routine 07/06/2023 3:49 PM MAID HOUSEKEEPER Gestational diabetes mellitus (GDM) in third trimester controlled on oral hypoglycemic drug Prior with demise and current in third trimester documented in this encounter Results * Maternal BPP Single (07/06/2023 3:49 PM MAID HOUSEKEEPER) Anatomical Region Laterality Modality Ultrasound 07/06/2023 3:32 PM MAID HOUSEKEEPER Impressions 07/06/2023 3:53 PM MAID HOUSEKEEPER IMPRESSION ----- 1) Normal amniotic fluid volume. 2) BPP is reassuring. Narrative 07/06/2023 3:53 PM MAID HOUSEKEEPER ?BPP ----- Pat. Name: YU RENEE ? Study Date: ??07/06/2023 3:32pm Pat. NO: ??[id number] ?Referring ??MD: RENEE BENNETT Site: ??[facility] ? Burnisher: Renetta Garcia RDMS : ??1995 ?Age: ?? [...] RENEE Study Date: 07/06/2023 3:32pm Pat. NO: [id number] Referring MD: RENEE BENNETT Site: [facility] Burnisher: Renetta Garcia RDMS : 1995 Age: 27 [...] 2) BPP is reassuring. Jennifer Boyer MD [facility] US ORDERAB LES documented in this encounter Visit Diagnoses Diagnosis Gestational diabetes mellitus (GDM) in third trimester controlled on oral hypoglycemic drug Prior with demise and current in third trimester documented in this encounter Additional Health Concerns Assessment Noted Time PHQ-9 Depression Total Score: 0 05/17/20 23 9:06 AM MAID HOUSEKEEPER documented as of this encounter Care Teams Shaper And Presser Relationship Specialty Start Date End Date Renee Bennett MD [address] [place] [address] PCP - General Family Medicine 07/07/20 Renee Bennett MD [address] [place] [address] Assigned PCP 08/14/[address] [place] [address] [place] [address] Census Clerk Dietitian, Registered 06/14/23 documented as of this encounter
--- OUTSIDE RECORDS SUMMARY | 2023-08-03 16:12 | XMS_ITS | Encounter Summary ---
Author Name Unknown Organization [place] Address [address] [facility] [place] [address] Care Team Providers Care Cam Milling Machine Operator Name Role Phone Laureano Bennett MD Primary Care Provider [phone] Laureano Bennett MD Unavailable [phone] Unavailable [phone] Encounter Details Date Type Department Care [...] st Contact Info) Description 08/23/2023 Hospital Encounter [facility] Birthplace [address] [place] [address] Laureano Bennett MD [address] [place] [address] [phone] documented as of this encounter Visit Diagnoses Not on filedocumented in this encounter Additional Health Concerns Assessment Noted Time PHQ-9 Depression Total Score: 0 05/17/20 23 9:06 AM MEDICAL RECORDS ANALYST documented as of this encounter Care Teams Cam Milling Machine Operator Relationship Specialty Start Date End Date Laureano Bennett MD [address] [place] [address] PCP - General Family Medicine 07/07/20 Laureano Bennett MD [address] [place] [address] Assigned PCP 08/14/[address] [facility] [address] [place] [address] Bridge Contractor Dietitian, Registered 06/14/23 documented as of this encounter
--- OUTSIDE RECORDS SUMMARY | 2023-08-03 16:12 | XMS_ITS | Encounter Summary ---
Author Name Unknown Organization [place] Address [address] [facility] [place] [address] Care Team Providers Care Finishing Machine Tender Name Role Phone Laureano Bennett MD Primary Care Provider [phone] Laureano Bennett MD Unavailable [phone] Unavailable [phone] Reason for Visit * Reason Comments Ultrasound BPP-GDMA2, hx term I UFD Encounter Details Date Type Department Care Team ([facility] st Contact Info) Description 07/06/2023 4:00 PM FOOD SERVICE DIRECTOR Office Visit [facility] Maternal Medicine [facility] [place] [address] [facility] [address] [place] [address] Tyshawn Mccurdy MD [address] [place] [address] Gestational diabetes mellitus (GDM) in [...] of this encounter Progress Notes * Tyshawn Mccudry MD - 07/06/2023 4:00 PM CST Please see Imaging tab under Chart Review for details of today's US at the [facility]. Tyshawn Mccurdy MD Maternal- Medicine SERVICE DIRECTOR documented in this encounter Nursing Notes * Addis Olivares RN - 07/06/2023 4:00 PM CST Patient presents to [facility] for BPP at 33w1d due to GDMA2, hx term IUFD. Positive movement. Denies LOF, vaginal bleeding or cramping/contractions. Reports blood sugar values fasting <95 and 1 hrpost prandial <140. SBAR given to [facility] , see their note in Epic. SERVICE DIRECTOR documented in this encounter Plan of Treatment Upcoming Encounters Date Type Department Care Team (Late st Contact Info) Description 08/23/2023 Hospital Encounter [facility] [address] [place] [address] [place] [address] [place] [address] [id number] documented as of this encounter Visit Diagnoses Diagnosis Gestational diabetes mellitus (GDM) in third trimester controlled on oral hypoglycemic drug- Primary Prior with demise and current in third trimester documented in this encounter Additional Health Concerns Assessment Noted Time PHQ-9 Depression Total Score: 0 05/17/20 23 9:06 AM FOOD SERVICE DIRECTOR documented as of this encounter Care Teams Finishing Machine Tender Relationship Specialty Start Date End Date Laureano Bennett MD [address] [place] [address] [id number] PCP - General Family Medicine 07/07/20 Laureano Bennett MD [address] [place] [address] 536652 Assigned PCP 08/14/[address] [place] [address] [place] [address] Reactor Fueling Supervisor Dietitian, Registered 06/14/23 documented as of this encounter
--- OUTSIDE RECORDS SUMMARY | 2023-08-03 16:12 | XMS_ITS | Encounter Summary ---
Author Name Unknown Organization [place] Address [facility] [place] [address] Care Team Providers Care Agricultural Production Engineer Name Role Phone Laureano Bennett MD Primary Care Provider Laureano Bennett MD Unavailable [phone] Unavailable [phone] Reason for Visit * Reason Comments Decreased Movement Encounter Details Date Type Department Care Team (Late st Contact Info) Description 07/08/2023 4:10 PM MEDICAL ORDERLY - 07/08/2023 5:05 PM MEDICAL ORDERLY Hospital Encounter [facility] Birthplace [address] [place] [phone] Laureano Bennett MD [address] [place] [address] Discharge Disposition: Home or Self [...] Comments Blood Pressure 131/59 07/08/2023 4:32 PM MEDICAL ORDERLY Pulse 64 07/08/2023 4:32 PM MEDICAL ORDERLY Temperature 36.7 ??C (98.1 ??F) 07/08/2023 4:32 PM CS T Respiratory Rate 16 07/08/2023 4:32 PM MEDICAL ORDERLY Oxygen Saturation - - Inhaled Oxygen Concentration - - Weight - - Height - - Body Mass Index - - documented in this encounter Discharge Instructions * Discharge Instructions* Beverley Kennedy RN - 07/08/2023 5:00 PM MEDICAL ORDERLY Learning About When to Call Your Doctor [...] Where can you learn more? Go to https://www.Lead[employer].net/patiented Enter N531 in the search box to learn more about Learning About When to Call Your Doctor During (After 20 Weeks). Current as of: December 28, 2022 Content Version: 13.8 ?? [id number] [employer]. Care instructions adapted under license by your healthcare professional. If you have questions about a medical condition or this instruction, always ask your healthcare professional. [employer] disclaims any warranty or liability for your use of this information. CAL ORDERLY * Attachments The following attachments cannot be sent through Care Everywhere. * : Kick Counts (Tajik) documented in this encounter Medications at Time [...] with plan. Discharged to home at 1705. CAL ORDERLY * Provider Notification - Beverley Kennedy RN - 07/08/2023 4:55 PM MEDICAL ORDERLY 07/08/23 1655 Provider Notification Provider Name/Title Dr. Benntet Method of Notification Phone Request Evaluate - [...] plan to follow up as previously instructed. CAL ORDERLY * Care Plan - Beverley Kennedy RN [...] Bennett with update and for further orders. CAL ORDERLY documented in this encounter Plan of Treatment Upcoming Encounters Date Type Department Care Team (Late st Contact Info) Description 08/23/2023 Hospital Encounter [facility] Birthplace [address] [place] [address] Laureano Bennett MD [address] [place] [address] documented as of this encounter Procedures Procedure Name Priority Date/Time Associated Diagnosis Comments NON-STRESS TEST - HIM SCAN 07/08/2023 12:00 AM MEDICAL ORDERLY documented in this encounter Results * NON-STRESS TEST - HIM SCAN (07/08/2023 12:00 AM MEDICAL ORDERLY) 07/08/2023 Provider Outside PROCEDURES documented in this encounter Visit Diagnoses Diagnosis Encounter for triage in patient- Primary documented in this encounter Admitting Diagnoses Diagnosis Encounter for triage in patient documented in this encounter Additional Health Concerns Assessment Noted Time PHQ-9 Depression Total Score: 0 05/17/20 23 9:06 AM MEDICAL ORDERLY documented as of this encounter Care Teams Agricultural Production Engineer Relationship Specialty Start Date End Date Laureano Bennett MD [address] [place] [address] PCP - General Family Medicine 07/07/20 Laureano Bennett MD [address] [place] [address] Assigned PCP 08/14/[address] [facility] [place] [address] [place] [address] Heart Surgeon Dietitian, Registered 06/14/23 documented as of this encounter
--- OUTSIDE RECORDS SUMMARY | 2023-08-03 16:12 | XMS_ITS | Encounter Summary ---
Author Name Unknown Organization [place] Address [address] [facility] [place] [address] Care Team Providers Care Haunted History Tour Guide Name Role Phone Laureano Bennett MD Primary Care Provider [phone] Laureano Bennett MD Unavailable [phone] Unavailable [phone] Encounter Details Date Type Department Care [...] st Contact Info) Description 08/23/2023 Hospital Encounter [facility] Birthplace [address] [place] [address] Laureano Bennett MD [address] [place] [address] 316212 documented as of this encounter Visit Diagnoses Not on filedocumented in this encounter Additional Health Concerns Assessment Noted Time PHQ-9 Depression Total Score: 0 05/17/20 23 9:06 AM DRY MIXER documented as of this encounter Care Teams Haunted History Tour Guide Relationship Specialty Start Date End Date Laureano Bennett MD [address] [place] [address] PCP - General Family Medicine 07/07/20 Laureano Bennett MD [address] [place] [address] Assigned PCP 08/14/[address] [facility] [address] [place] [address] Restorative Care Technician Dietitian, Registered 06/14/23 documented as of this encounter
--- OUTSIDE RECORDS SUMMARY | 2023-08-03 16:12 | XMS_ITS | Encounter Summary ---
Author Name Unknown Organization [facility] Address [address] [place] [address] Care Team Providers Care Pig Casting Machine Operator Name Role Phone Laureano Bennett MD Primary Care Provider [phone] Laureano Bennett MD Unavailable [phone] Unavailable [phone] Reason for Visit * Reason Comments Care Encounter Details Date Type Department Care Team ([facility] st Contact Info) Description 07/04/2023 8:20 AM EDITOR MAGAZINE Office Visit [address] [phone] Laureano Bennett MD [address] [place] [address] Encounter for supervision of other normal [...] Comments Blood Pressure 110/64 07/04/2023 8:18 AM EDITOR MAGAZINE Pulse 102 07/04/2023 8:18 AM EDITOR MAGAZINE Temperature 36.1 ??C (97 ??F) 07/04/2023 8:18 AM EDITOR MAGAZINE Respiratory Rate 16 07/04/2023 8:18 AM EDITOR MAGAZINE Oxygen Saturation 99% 07/04/2023 8:18 AM EDITOR MAGAZINE Inhaled Oxygen Concentration - - Weight 80.3 kg (177 lb) 07/04/2023 8:18 AM EDITOR MAGAZINE Height 174 cm (5' 8.5) 07/04/2023 8:18 AM EDITOR MAGAZINE Body Mass Index 26.52 07/04/2023 8:18 AM EDITOR MAGAZINE documented in this encounter Progress Notes * [...] education. Hypoglycemia treatment options dicussed as well. OR MAGAZINE documented in this encounter Miscellaneous Notes * Result Encounter Note - Laureano Bennett MD - 07/04/2023 8:20 AM EDITOR MAGAZINE Dear Yu, Here is a summary of your recent test results: -All of your labs are normal in regards to antiphospholipid syndrome For additional lab test information, www.testing.com is a very good reference. Thank you very much for trusting me and [facility]. Have a peaceful day. Healthy regards, Prasad Bennett MD OR MAGAZINE documented in this encounter Plan of Treatment Upcoming Encounters Date Type Department Care Team (Late st Contact Info) Description 08/23/2023 Hospital Encounter [facility] [address] [place] [address] [place] [address] [place] [address] documented as of this encounter Procedures Procedure Name Priority Date/Time Associated Diagnosis Comments CARDIOLIPIN BRENDEN IGG AND IGM Routine 07/04/2023 9:42 AM EDITOR MAGAZINE History of stillbirth BETA 2 GLYCOPROTEIN ANTIBODIES IGG IGM Routine 07/04/2023 9:42 AM EDITOR MAGAZINE History of stillbirth LUPUS ANTICOAGULANT PANEL Routine 07/04/2023 9:42 AM EDITOR MAGAZINE History of stillbirth GLUCOSE ALBUMIN OB URINE Routine 07/04/2023 8:20 AM EDITOR MAGAZINE Encounter for supervision of other normal in second trimester documented in this encounter Results * Beta 2 Glycoprotein Antibodies IGG IGM (07/04/2023 9:42 AM EDITOR MAGAZINE) Beta 2 Glycoprotein 1 Antibody IgG 1.0 <7.0 U/mL 07/06/2023 11:27 AM EDITOR MAGAZINE UM SPECIALTY CORE/PROT/END O Comment:Negative Beta 2 Glycoprotein 1 Antibody IgM 3.3 <7.0 U/mL 07/06/2023 11:27 AM EDITOR MAGAZINE SPECIALTY CORE/PROT/END O Comment:Negative Blood BLOOD SPECIMEN / Unknown Venipuncture / Unknown 07/04/2023 9:42 AM EDITOR MAGAZINE 07/04/2023 9:43 AM EDITOR MAGAZINE Laureano Bennett MD LAB - BLOOD ORDERABL ES UM SPECIALTY CORE/PROT/ENDO UM Specialty Core/Prot/Endo [address] [facility] J [facility] [address], Room [address] [phone] * Cardiolipin Brenden IgG and IgM (07/04/2023 9:42 AM EDITOR MAGAZINE) Cardiolipin Brenden IgG Instrument Value <2.0 <10.0 GPL-U/mL 07/06/2023 11:27 AM EDITOR MAGAZINE SPECIALTY CORE/PROT/END O Cardiolipin Antibody IgG Negative Negative 07/06/2023 11:27 AM EDITOR MAGAZINE SPECIALTY CORE/PROT/END O Cardiolipin Brenden IgM Instrument Value 2.2 <10.0 MPL-U/mL 07/06/2023 11:27 AM EDITOR MAGAZINE SPECIALTY CORE/PROT/END O Cardiolipin Antibody IgM Negative Negative 07/06/2023 11:27 AM EDITOR MAGAZINE SPECIALTY CORE/PROT/END O Blood BLOOD SPECIMEN / Unknown Venipuncture / Unknown 07/04/2023 9:42 AM EDITOR MAGAZINE 07/04/2023 9:43 AM EDITOR MAGAZINE Laureano Bennett MD LAB - BLOOD ORDERABL ES UM SPECIALTY CORE/PROT/ENDO Specialty Core/Prot/Endo [address] [facility] [address] Building, Room [address] [phone] * Lupus Anticoagulant Panel (07/04/2023 9:42 AM EDITOR MAGAZINE) INR 1.04 0.85 - 1.15 4 4:15 PM EDITOR MAGAZINE UM SPECIAL COAGULATION Thrombin Time 17.0 13.0 - 19.0 Seconds 4:15 PM EDITOR MAGAZINE UM SPECIAL COAGULATION PTT Ratio 0.97 <1.21 4 4:15 PM EDITOR MAGAZINE UM SPECIAL COAGULATION DRVVT Screen Ratio 0.91 <1.08 4 4:15 PM EDITOR MAGAZINE UM SPECIAL COAGULATION Lupus Result Negative Negative 4:15 PM EDITOR MAGAZINE UM SPECIAL COAGULATION Lupus Interpretation The INR is normal. APTT ratio is normal. ?? DRVVT Screen ratio is normal. Thrombin time is normal. NEGATIVE TEST; A LUPUS ANTICOAGULANT WAS NOT DETECTED IN THIS SPECIMEN WITHIN THE LIMITS OF THE TESTING REPERTOIRE. If the clinical picture is strongly suggestive of an antiphospholipid syndrome, recommend anticardiolipin and wssf-2-xtbifviyacy n (IgG and IgM) antibody tests. Salina James MD, PhD [facility] 4:15 PM EDITOR MAGAZINE UM SPECIAL COAGULATION Blood BLOOD SPECIMEN / Unknown Venipuncture / Unknown 07/04/2023 9:42 AM EDITOR MAGAZINE 07/04/2023 9:43 AM EDITOR MAGAZINE Laureano Bennett MD LAB - BLOOD ORDERABL ES UM SPECIAL COAGULATION UM Special Coagulation [address] [facility] [address] [facility] [address], Room [address] [place] [id number] [phone] * (ABNORMAL) Glucose and albumin, OB urine (07/04/2023 8:20 AM EDITOR MAGAZINE) Protein Albumin Urine Trace(A) Negative mg/dL 07/04/2023 8:22 AM EDITOR MAGAZINE [facility] Glucose Urine Negative Negative mg/dL 07/04/2023 8:22 AM EDITOR MAGAZINE [facility] Urine MID-STREAM URINE SPECIMEN / Unknown Non-blood Collection / Unknown 07/04/2023 8:20 AM EDITOR MAGAZINE 07/04/2023 8:20 AM EDITOR MAGAZINE Laureano Bennett MD LAB - URINE ORDERABL ES LABORATORY [facility] [address] [place] [address] Lab (no room number, 1st floor of clinic) [place] [address], [facility] [phone] documented in this encounter Visit Diagnoses Diagnosis Encounter for supervision of other normal in second trimester- Primary Gestational diabetes mellitus (GDM), antepartum, gestational diabetes method of control unspecified History of stillbirth with other poor reproductive history documented in this encounter Additional Health Concerns Assessment Noted Time PHQ-9 Depression Total Score: 0 05/17/20 9:06 AM EDITOR MAGAZINE documented as of this encounter Care Teams Pig Casting Machine Operator Relationship Specialty Start Date End Date Laureano Bennett MD [address] [place] [address] PCP - General Family Medicine 07/07/20 Laureano Bennett MD [address] [place] [address] Assigned PCP 08/14/[address] [address] Stripping Shovel Oiler Dietitian, Registered 06/14/23 documented as of this encounter
--- OUTSIDE RECORDS SUMMARY | 2023-08-03 16:12 | XMS_ITS | Encounter Summary ---
Author Name Unknown Organization [facility] Address [address] [facility] [place] [address] Care Team Providers Care Alcohol Rubber Name Role Phone Laureano Bennett MD Primary Care Provider [phone] Laureano Bennett MD Unavailable [phone] Unavailable [phone] Reason for Visit * Reason Comments Ultrasound BPP-GDM on meds, hx IUFD Encounter Details Date Type Department Care Team ([facility] st Contact Info) Description 07/04/2023 4:00 PM MOTORIZED SQUAD CAPTAIN Office Visit [facility] M[facility] Medicine Center [place] [address] [facility] [address] [place] [address] Rosemary Cheema MD [address] [facility] [address] [place] [address] Gestational diabetes mellitus (GDM) in [...] Violette Zhou RN - 07/04/2023 4:00 PM MOTORIZED SQUAD CAPTAIN Images from the original note were not [...] Where can you learn more? Go to [email or web address] Enter U048 in the search box to learn more about Counting Your Baby's Kicks: Care Instructions. Current as of: December 28, 2022 Content Version: 13.8 ?? [employer]. Care instructions adapted under license by your healthcare professional. If you have questions about a medical condition or this instruction, always ask your healthcare professional. [employer] disclaims any warranty or liability for your [...] health care provider. Copyright ?? 1999, 2004 [facility]. Clinically reviewed by Maternal- Medicine Department. All rights reserved. [employer] [id number] - REV 04/09. RIZED SQUAD CAPTAIN documented in this encounter Progress Notes * Rosemary Cheema MD - 07/04/2023 4:00 PM CST Please see Imaging tab under Chart Review for details of today's visit. Rosemary Cheema RIZED SQUAD CAPTAIN documented in this encounter Nursing Notes * Violette Zhou RN - 07/04/2023 4:00 PM CST Patient reports good movement, reports occasional contractions, denies leaking of fluid, or bleeding. Reports blood sugar values fasting 117 today and 2 hr post prandial <120. SBAR given to MARYAM MAYERS, see their note in Epic. RIZED SQUAD CAPTAIN documented in this encounter Plan of Treatment Upcoming Encounters Date Type Department Care Team (Late st Contact Info) Description 08/23/2023 Hospital Encounter [facility] [address] [place] [phone] Laureano Bennett MD [address] [place] [address] documented as of this encounter Visit Diagnoses Diagnosis Gestational diabetes mellitus (GDM) in third trimester controlled on oral hypoglycemic drug- Primary documented in this encounter Additional Health Concerns Assessment Noted Time PHQ-9 Depression Total Score: 0 05/17/20 23 9:06 AM MOTORIZED SQUAD CAPTAIN documented as of this encounter Care Teams Alcohol Rubber Relationship Specialty Start Date End Date Laureano eBnnett MD [address] [place] [address] PCP - General Family Medicine 07/07/20 Laureano Bennett MD [address] [place] [address] Assigned PCP 08/14/[address] [place] [address] [place] [address] Computer Repair Engineer Dietitian, Registered 06/14/23 documented as of this encounter
--- OUTSIDE RECORDS SUMMARY | 2023-08-03 16:12 | XMS_ITS | Encounter Summary ---
Author Name Unknown Organization [facility] Address [address] [facility] [place] [address] Care Team Providers Care Hat Brim And Crown Laminating Operator Name Role Phone Laureano Bennett MD Primary Care Provider [phone] Laureano Bennett MD Unavailable [phone] Unavailable [phone] Encounter Details Date Type Department Care [...] Encounter [facility] [address] [place] [address] Laureano Bennett MD [address] [place] [phone] documented as of this encounter Visit Diagnoses Not on filedocumented in this encounter Additional Health Concerns Assessment Noted Time PHQ-9 Depression Total Score: 0 05/17/20 23 9:06 AM ART OBJECTS SALESPERSON documented as of this encounter Care Teams Hat Brim And Crown Laminating Operator Relationship Specialty Start Date End Date Laureano Bennett MD [address] [place] [address] PCP - General Family Medicine 07/07/20 Laureano Bennett MD [address] [place] [address] Assigned PCP 08/14/[address] [facility] [place] [address] [place] [address] Mixing Operator Dietitian, Registered 06/14/23 documented as of this encounter
--- OUTSIDE RECORDS SUMMARY | 2023-08-03 16:12 | XMS_ITS | Encounter Summary ---
Author Name Unknown Organization [facility] Address [address] [facility] [place] [address] Care Team Providers Care Tool Repair Technician Name Role Phone Laureano Bennett MD Primary Care Provider [phone] Laureano Bennett MD Unavailable [phone] Unavailable [phone] Reason for Visit * Reason Onset Date Comments Decreased Movement 07/08/2023 Encounter Details Date Type Department Care Team ([facility] Contact Info) Description 07/08/2023 Telephone [facility] [place] [address] [facility] [address] [place] [address] Chyna Garcia RN Decreased Movement [...] to notify them she is heading into [facility] labor and delivery [facility] for an NST. Pt verbalized understanding. Chyna Garcia RN STANT EXECUTIVE HOUSEKEEPER documented in this encounter Plan of Treatment Upcoming Encounters Date Type Department Care Team (Late st Contact Info) Description 08/23/2023 Hospital Encounter [facility] [address] [place] [address] Laureano Bennett MD [address] [place] [address] documented as of this encounter Visit Diagnoses Not on filedocumented in this encounter Additional Health Concerns Assessment Noted Time PHQ-9 Depression Total Score: 0 05/17/20 23 9:06 AM ASSISTANT EXECUTIVE HOUSEKEEPER documented as of this encounter Care Teams Tool Repair Technician Relationship Specialty Start Date End Date Laureano Bennett MD [address] [place] [address] PCP - General Family Medicine 07/07/20 Laureano Bennett MD [address] [place] [address] Assigned PCP 08/14/[address] [facility] [address] [place] [address] Rn Transplant Dietitian, Registered 06/14/23 documented as of this encounter
--- OUTSIDE RECORDS SUMMARY | 2023-08-03 16:13 | XMS_ITS | Encounter Summary ---
Author Name Unknown Organization [facility] Address [address] [place] [address] Care Team Providers Care Grain And Yeast Plants Supervisor Name Role Phone Laureano Bennett MD Primary Care Provider [phone] Laureano Bennett MD Unavailable [phone] Unavailable [phone] Reason for Referral * Consultation (Routine: Next available opening) - Referral NOT Required Specialty Diagnoses / Procedures Referred By Contac t Referred To Contact Diagnoses Gestational diabetes mellitus (GDM), antepartum, gestational diabetes method of control unspecified Laureano Bennett MD [address] [place] [address] Maternal Med [address] [address] [place] [address] Referral ID Status Reason Start Date Expiration Date V isits Requested Visits Authorized [id number] Referral NOT Required 06/21/2023 06/20/2024 1 1 Question Answer Preferred Location: [facility] [place] 08/23/2023 Ultrasound MFM Recommendation US PROC [...] plan with any benefit or coverage questions. RINE PLANT OPERATOR Encounter Details Date Type Department Care Team (Late st Contact Info) Description 06/21/2023 10:20 AM CHLORINE PLANT OPERATOR Office Visit [address] [phone] Laureano Bennett MD [address] [place] [address] [phone] Gestational diabetes mellitus (GDM), antepartum, gestational diabetes [...] Comments Blood Pressure 122/78 06/21/2023 10:14 AM CHLORINE PLANT OPERATOR Pulse 76 06/21/2023 10:14 AM CHLORINE PLANT OPERATOR Temperature 36.6 ??C (97.9 ??F) 06/21/2023 10:[address] Respiratory Rate 14 06/21/2023 10:14 AM CHLORINE PLANT OPERATOR Oxygen Saturation 98% 06/21/2023 10:14 AM CHLORINE PLANT OPERATOR Inhaled Oxygen Concentration - - Weight 81.2 kg (179 lb) 06/21/2023 10:14 AM CHLORINE PLANT OPERATOR Height 174 cm (5' 8.5) 06/21/2023 10:14 AM CHLORINE PLANT OPERATOR Body Mass Index 26.82 06/21/2023 10:14 AM CHLORINE PLANT OPERATOR documented in this encounter Progress Notes [...] now and weight scan ~ 36 weeks. RINE PLANT OPERATOR documented in this encounter Plan of Treatment Upcoming Encounters Date Type Department Care Team (Late st Contact Info) Description 08/23/2023 Hospital Encounter [facility] [address] [place] [address] Laureano Bennett MD [address] [place] [phone] Scheduled Referrals Name Type Priority Associated Diagnoses [...] Total Score: 0 05/17/20 23 9:06 AM CHLORINE PLANT OPERATOR documented as of this encounter Care Teams Grain And Yeast Plants Supervisor Relationship Specialty Start Date End Date Laureano Bennett MD [address] [place] [address] [phone] PCP - General Family Medicine 07/07/20 Laureano Bennett MD [address] [place] [address] Assigned PCP 08/14/[address] [address] Passenger Vessel Chef Dietitian, Registered 06/14/23 documented as of this encounter
--- OUTSIDE RECORDS SUMMARY | 2023-08-03 16:13 | XMS_ITS | Encounter Summary ---
Author Name Unknown Organization [facility] Address [address] [place] [address] Care Team Providers Care Pilot Teacher Name Role Phone Renee Bennett MD Primary Care Provider [phone] Renee Bennett MD Unavailable [phone] Unavailable [phone] Reason for Referral * Diagnostic Imaging Ultrasound (Routine) - Pending Review Specialty Diagnoses / Procedures Referred By Tim nathan Referred To Contact Radiology. Diagnoses Gestational diabetes mellitus (GDM) in third trimester controlled on oral hypoglycemic drug History of IUFD Procedures Maternal US Comprehensive Single F/U Jennifer Boyer MD [address] [place] [address] Referral ID Status Reason Start Date Expiration Date V isits Requested Visits Authorized [id number] Pending Review 07/01/2023 06/30/2024 1 1 OMER SALES SPECIALIST * Diagnostic Imaging Ultrasound (Routine) - Pending Review Specialty Diagnoses / Procedures Referred By Conteloina nathan Referred To Contact Radiology. Diagnoses Gestational diabetes mellitus (GDM) in third trimester controlled on oral hypoglycemic drug History of IUFD Procedures Maternal BPP Single Jennifer Boyer MD [address] [place] [address] Referral ID Status Reason Start Date Expiration Date V isits Requested Visits Authorized [id number] Pending Review 07/01/2023 06/30/2024 1 1 OMER SALES SPECIALIST * Diagnostic Imaging Ultrasound (Routine) - Pending Review Specialty Diagnoses / Procedures Referred By Contac t Referred To Contact Radiology. Diagnoses Gestational diabetes mellitus (GDM) in third trimester controlled on oral hypoglycemic drug History of IUFD Procedures Maternal BPP Jennifer Samuel MD [address] [place] [address] Referral ID Status Reason Start Date Expiration Date V isits Requested Visits Authorized [id number] Pending Review 07/01/2023 06/30/2024 1 1 OMER SALES SPECIALIST * Diagnostic Imaging Ultrasound (Routine) - Pending Review Specialty Diagnoses / Procedures Referred By Contac t Referred To Contact Radiology. Diagnoses Gestational diabetes mellitus (GDM) in third trimester controlled on oral hypoglycemic drug History of IUFD Procedures Maternal BPP Jennifer Samuel MD [address] [place] [address] Referral ID Status Reason Start Date Expiration Date V isits Requested Visits Authorized [id number] Pending Review 07/01/2023 06/30/2024 1 1 OMER SALES SPECIALIST * Diagnostic Imaging Ultrasound (Routine) - Pending Review Specialty Diagnoses / Procedures Referred By Contac t Referred To Contact Radiology. Diagnoses Gestational diabetes mellitus (GDM) in third trimester controlled on oral hypoglycemic drug History of IUFD Procedures Maternal BPP Jennifer Samuel MD [address] [place] [address] Referral ID Status Reason Start Date Expiration Date V isits Requested Visits Authorized [id number] Pending Review 07/01/2023 06/30/2024 1 1 OMER SALES SPECIALIST * Diagnostic Imaging Ultrasound (Routine) - Pending Review Specialty Diagnoses / Procedures Referred By Contac t Referred To Contact Radiology. Diagnoses Gestational diabetes mellitus (GDM) in third trimester controlled on oral hypoglycemic drug History of IUFD Procedures Maternal BPP Jennifer Samuel MD [address] [place] [address] Referral ID Status Reason Start Date Expiration Date V isits Requested Visits Authorized [id number] Pending Review 07/01/2023 06/30/2024 1 1 OMER SALES SPECIALIST * Diagnostic Imaging Ultrasound (Routine) - Pending Review Specialty Diagnoses / Procedures Referred By Contac jac Referred To Contact Radiology. Diagnoses Gestational diabetes mellitus (GDM) in third trimester controlled on oral hypoglycemic drug History of IUFD Procedures Maternal BPP Jennifer Samuel MD [address] [place] [address] Referral ID Status Reason Start Date Expiration Date V isits Requested Visits Authorized [id number] Pending Review 07/01/2023 06/30/2024 1 1 OMER SALES SPECIALIST * Diagnostic Imaging Ultrasound (Routine) - Pending Review Specialty Diagnoses / Procedures Referred By Conteloina nathan Referred To Contact Radiology. Diagnoses Gestational diabetes mellitus (GDM) in third trimester controlled on oral hypoglycemic drug History of IUFD Procedures Maternal BPP Jennifer Samuel MD [address] [place] [address] Referral ID Status Reason Start Date Expiration Date V isits Requested Visits Authorized [id number] Pending Review 07/01/2023 06/30/2024 1 1 OMER SALES SPECIALIST Reason for Visit * Reason Comments Ultrasound L2-GDMA2, Hx of term stillbirth Encounter Details Date Type Department Care Team (Late st Contact Info) Description 07/01/2023 8:30 AM CUSTOMER SALES SPECIALIST Office Visit [facility] [place] [address] [place] [address] Jennifer Boyer MD [address] [place] [address] Gestational diabetes mellitus (GDM) in [...] Jennifer Boyer MD Specialist in Maternal- Medicine OMER SALES SPECIALIST documented in this encounter Nursing Notes [...] MARYAM MAYERS, see their note in Epic. OMER SALES SPECIALIST documented in this encounter Plan of Treatment Upcoming Encounters Date Type Department Care Team (Late st Contact Info) Description 08/23/2023 Hospital Encounter [facility] [address] [place] [id number] Renee Bennett MD [address] [place] [address] documented as of this encounter Results * Maternal US Comprehensive Single F/U (07/29/2023 1:32 PM CUSTOMER SALES SPECIALIST) Anatomical Region Laterality Modality Ultrasound 07/29/2023 11:4 6 AM CUSTOMER SALES SPECIALIST Impressions 07/29/2023 1:43 PM CUSTOMER SALES SPECIALIST IMPRESSION ----- 1) Brumfield intrauterine at 36w 3d gestational age. 2) None of the anomalies commonly detected by ultrasound were evident in the anatomic survey described above. 3) Growth parameters and estimated weight were consistent with an appropriate for gestation age pattern of growth. 4) The amniotic fluid volume appeared normal. 5) The BPP was reassuring. Narrative 07/29/2023 1:43 PM CUSTOMER SALES SPECIALIST ?Comp Follow Up ----- Pat. Name: YU LOGAN ? Study Date: ??07/29/2023 11:46am Pat. NO: ??[id number] ?Referring ??MD: ABIDA ROMERO Site: ??[facility] ? Lace Pinner: Dhara Chase RDMS : ??1995 ?Age: ?? [...] Biometry: BPD ?86.9 ?mm ? 35w 1d ?Nando MORTON ?110.6 ?mm ?33w 2d ?Nicolaides HC ?313.7 ?mm ?35w 1d ?Hadlock Cerebellum tr ?50.8 ? mm ?-/- ?Nicolaides AC ?327.3 ?mm ?36w 4d ?68% ?Hadlock Femur ?71.3 ? mm ?36w 4d ?Hadlock Humerus ?62.5 ?mm ? 36w 1d ?Randell Weight Calculation: EFW ? 2,894 ?g ? 49% ?Hadlock EFW (lb,oz) ? 6 lb 6 ?oz EFW by ?Hadlock ([id number]) Head / Face / Neck Biometry: Psychology Physician ? 4.1 ? mm CM ?6.8 ? mm ANATOMY ----- The following structures appear normal: Head / Neck ? Cranium. Head size. Head shape. Lateral ventricles. Midline falx. Cavum septi pellucidi. Cerebellum. Cisterna magna. Thalami. Face ? Lips. Profile. Nose. Maxilla. Mandible. Orbits. Lens. Heart / Thorax ?4-chamber view. RVOT view. LVOT view. Aortic arch view. Bicaval view. 7-xltvox-ywzgcec view. ? Diaphragm. Abdomen ? Stomach. Kidneys. [...] LOGAN Study Date: 07/29/2023 11:46am Pat. NO: [id number] Referring MD: ABIDA ROMERO Site: [facility] Lace Pinner: Dhara Chase RDMS : 1995 Age: 28 [...] 6 lb 6 oz EFW by Hadlock ([id number]) Head / Face / Neck Biometry: Psychology Physician 4.1 mm CM 6.8 mm ANATOMY ----- The following structures appear normal: Head / Neck Cranium. Head size. Head shape.Lateral ventricles. Midline falx. Cavum septi pellucidi. Cerebellum.Cisterna magna. Thalami. Face Lips. Profile. Nose. Maxilla.Mandible. Orbits. Lens. Heart / Thorax 4-chamber view. RVOT view. LVOT view.Aortic arch view. Bicaval view. 9-xnwxpg-hrqqwyw view. Diaphragm. Abdomen Stomach. Kidneys. Bladder. Spine [...] The BPP was reassuring. Jennifer Boyer MD [facility] US ORDERAB LES * Maternal BPP Single (07/26/2023 8:15 AM CUSTOMER SALES SPECIALIST) Anatomical Region Laterality Modality Ultrasound 07/26/2023 7:52 AM CUSTOMER SALES SPECIALIST Impressions 07/26/2023 8:17 AM CUSTOMER SALES SPECIALIST IMPRESSION ----- 1. Brumfiedl intrauterine at 36w 0d gestational age here for testing. 2. The fetus is in cephalic presentation. The amniotic fluid volume is normal. 3. The BPP is 01/25. Narrative 07/26/2023 8:17 AM CUSTOMER SALES SPECIALIST ?BPP ----- Pat. Name: YU LOGAN ? Study Date: ??07/26/2023 7:52am Pat. NO: ??[id number] ?Referring ??MD: RENEE BENNETT Site: ??[facility] ? Lace Pinner: Makeda Hassan RDMS : ??1995 ?Age: ?? [...] - 07/26/2023 BPP ----- Pat. Name: YU LOAGN Study Date: 07/26/2023 7:52am Pat. NO: [id number] Referring MD: RENEE BENNETT Site: [facility] Lace Pinner: Makeda Hassan RDMS : 1995 Age: 28 [...] The BPP is 8/8. Jennifer Boyer MD [facility] US ORDERAB LES * Maternal BPP Single (07/22/2023 9:10 AM CUSTOMER SALES SPECIALIST) Anatomical Region Laterality Modality Ultrasound 07/22/2023 8:54 AM CUSTOMER SALES SPECIALIST Impressions 07/22/2023 9:22 AM CUSTOMER SALES SPECIALIST IMPRESSION ----- 1. Brumfield intrauterine at 35w 3d gestational age here for testing. 2. The fetus is in cephalic presentation. The amniotic fluid volume is normal. 3. The BPP is 01/25. Narrative 07/22/2023 9:22 AM CUSTOMER SALES SPECIALIST ?BPP ----- Pat. Name: YU LOGAN ? Study Date: ??07/22/2023 8:54am Pat. NO: ??[id number] ?Referring ??MD: RENEE BENNETT Site: ??[facility] ? Lace Pinner: Makeda Hassan RDMS : ??1995 ?Age: ?? [...] LOGAN Study Date: 07/22/2023 8:54am Pat. NO: [id number] Referring MD: RENEE BENNETT Site: [facility] Lace Pinner: Makeda Hassan RDMS : 1995 Age: 28 [...] The BPP is 8/8. Jennifer Boyer MD [facility] US ORDERAB LES * Maternal BPP Single (07/18/2023 3:55 PM CUSTOMER SALES SPECIALIST) Anatomical Region Laterality Modality Ultrasound 07/18/2023 3:34 PM CUSTOMER SALES SPECIALIST Impressions 07/18/2023 3:57 PM CUSTOMER SALES SPECIALIST IMPRESSION ----- 1) Normal amniotic fluid volume. 2) BPP is reassuring. Narrative 07/18/2023 3:57 PM CUSTOMER SALES SPECIALIST ?BPP ----- Pat. Name: YU LOGAN ? Study Date: ??07/18/2023 3:34pm Pat. NO: ??[id number] ?Referring ??MD: RENEE BENNETT Site: ??[facility] ? Lace Pinner: Kirstin Gold : ??1995 ?Age: ?? 28 [...] LOGAN Study Date: 07/18/2023 3:34pm Pat. NO: [id number] Referring MD: RENEE BENNETT Site: [facility] Lace Pinner: Kirstin Gold RDMS : 1995 Age: 28 [...] 2) BPP is reassuring. Jennifer Boyer MD [facility] US ORDERAB LES * Maternal BPP Single (07/15/2023 12:07 PM CUSTOMER SALES SPECIALIST) Anatomical Region Laterality Modality Ultrasound 07/15/2023 11:4 0 AM CUSTOMER SALES SPECIALIST Impressions 07/15/2023 2:59 PM CUSTOMER SALES SPECIALIST IMPRESSION ----- 1) Brumfield intrauterine at 34w 3d gestational age. 2) The BPP is reassuring. 3) The amniotic fluid volume appeared normal. Narrative 07/15/2023 2:59 PM CUSTOMER SALES SPECIALIST ?BPP ----- Pat. Name: YU LOGAN ? Study Date: ??07/15/2023 11:40am Pat. NO: ??[id number] ?Referring ??MD: RENEE BENNETT Site: ??[facility] ? Lace Pinner: Makeda Hassan RDMS : ??1995 ?Age: ?? [...] LOGAN Study Date: 07/15/2023 11:40am Pat. NO: [id number] Referring MD: RENEE BENNETT Site: [facility] Lace Pinner: Makedalucas Hassan RDMS : 1995 Age: 28 ----- [...] fluid volume appeared normal. Jennifer Boyer MD [facility] US ORDERAB LES * Maternal BPP Single (2023 8:41 AM CUSTOMER SALES SPECIALIST) Anatomical Region Laterality Modality Ultrasound 2023 8:14 AM CUSTOMER SALES SPECIALIST Impressions 2023 8:44 AM CUSTOMER SALES SPECIALIST IMPRESSION ----- 1. Brumfield intrauterine at 34w 0d gestational age here for testing. 2. The fetus is in BREECH presentation. The amniotic fluid volume is normal. 3. The BPP is 01/25. Narrative 2023 8:44 AM CUSTOMER SALES SPECIALIST ?BPP ----- Pat. Name: YU LOGAN ? Study Date: ??2023 8:14am Pat. NO: ??[id number] ?Referring ??MD: RENEE BENNETT Site: ??[facility] ? Lace Pinner: Kirstin Gold RDMS : ??1995 ?Age: ?? [...] LOGAN Study Date: 2023 8:14am Pat. NO: [id number] Referring MD: RENEE BENNETT Site: [facility] Lace Pinner: Kirstin Gold RDMS : 1995 Age: 28 [...] The BPP is 01/25. Jennifer Boyer MD [facility] US ORDERAB LES * Maternal BPP Single (07/06/2023 3:49 PM CUSTOMER SALES SPECIALIST) Anatomical Region Laterality Modality Ultrasound 07/06/2023 3:32 PM CUSTOMER SALES SPECIALIST Impressions 07/06/2023 3:53 PM CUSTOMER SALES SPECIALIST IMPRESSION ----- 1) Normal amniotic fluid volume. 2) BPP is reassuring. Narrative 07/06/2023 3:53 PM CUSTOMER SALES SPECIALIST ?BPP ----- Pat. Name: YU LOGAN ? Study Date: ??07/06/2023 3:32pm Pat. NO: ??[id number] ?Referring ??MD: RENEE BENNETT Site: ??[facility] ? Lace Pinner: Renetta Garcia RDMS : ??1995 ?Age: ?? [...] LATISHACYNTHIAYU Study Date: 07/06/2023 3:32pm Pat. NO: [id number] Referring MD: RENEE BENNETT Site: [facility] Lace Pinner: Renetta Garcia RDMS : 1995 Age: 27 [...] 2) BPP is reassuring. Jennifer Boyer MD [facility] US ORDERAB LES * Maternal BPP Single (07/04/2023 3:38 PM CUSTOMER SALES SPECIALIST) Anatomical Region Laterality Modality Ultrasound 07/04/2023 3:18 PM CUSTOMER SALES SPECIALIST Impressions 07/04/2023 5:32 PM CUSTOMER SALES SPECIALIST IMPRESSION ----- 1) Brumfield intrauterine at 32w 6d gestational age. 2) The BPP is reassuring. 3) The amniotic fluid volume appeared normal. Narrative 07/04/2023 5:32 PM CUSTOMER SALES SPECIALIST ?BPP ----- Pat. Name: YU LOGAN ? Study Date: ??07/04/2023 3:18pm Pat. NO: ??[id number] ?Referring ??MD: RENEE BENNETT Site: ??[facility] ? Lace Pinner: Renetta Garcia RDMS : ??1995 ?Age: ?? [...] LOGAN Study Date: 07/04/2023 3:18pm Pat. NO: [id number] Referring MD: RENEE BENNETT Site: [facility] Lace Pinner: Renetta Garcia RDMS : 1995 Age: 27 [...] fluid volume appeared normal. Jennifer Boyer MD [facility] ORDERAB LES documented in this encounter [...] Total Score: 0 05/17/20 23 9:06 AM CUSTOMER SALES SPECIALIST documented as of this encounter Care Teams Pilot Teacher Relationship Specialty Start Date End Date Renee Bennett MD [address] [place] [address] PCP - General Family Medicine 07/07/20 Renee Bennett MD [address] [place], [place] 207[address] Assigned PCP 08/14/[address] [facility] [place] [address] [place] [address] Customer Service Administrator Dietitian, Registered 06/14/23 documented as of this encounter
--- OUTSIDE RECORDS SUMMARY | 2023-08-03 16:13 | XMS_ITS | Encounter Summary ---
Author Name Unknown Organization [facility] Address [address] [place] [address]. [place] [address] Care Team Providers Care Angle Shear Operator Name Role Phone Laureano Bennett MD Primary Care Provider [phone] Laureano Bennett MD Unavailable [phone] Encounter Details Date Type Department Care [...] [facility] Birthplace [address] [place] [address] Laureano Bennett MD [address] [place] [address] [id number] documented as of this encounter Visit Diagnoses Not on filedocumented in this encounter Additional Health Concerns Assessment Noted Time PHQ-9 Depression Total Score: 0 05/17/20 23 9:[address] VENDOR documented as of this encounter Care Teams Angle Shear Operator Relationship Specialty Start Date End Date Laureano Bennett MD [address] [place] [address] PCP - General Family Medicine 07/07/20 Laureano Bennett MD [address] [place] [address] Assigned PCP 08/14/22 documented as of this encounter
--- OUTSIDE RECORDS SUMMARY | 2023-08-03 16:13 | XMS_ITS | Encounter Summary ---
Author Name Unknown Organization [facility] Address [address] [place] [address]. [place] [address] Care Team Providers Care Licensed Customs Broker Name Role Phone Laureano Bennett MD Primary Care Provider [phone] Laureano Bennett MD Unavailable [phone] Encounter Details Date Type Department Care [...] st Contact Info) Description 08/23/2023 Hospital Encounter [facility] [address] [place] [address] Laureano Bennett MD [address] [place] [id number] documented as of this encounter Visit Diagnoses Not on filedocumented in this encounter Additional Health Concerns Assessment Noted Time PHQ-9 Depression Total Score: 0 05/17/20 23 9:06 AM BUSINESS ATTORNEY documented as of this encounter Care Teams Licensed Customs Broker Relationship Specialty Start Date End Date Laureano Bennett MD [address] [place] [address] PCP - General Family Medicine 07/07/20 Laureano Bennett MD [address] [place] [address] Assigned PCP 08/14/22 documented as of this encounter
--- OUTSIDE RECORDS SUMMARY | 2023-08-03 16:13 | XMS_ITS | Encounter Summary ---
Author Name Unknown Organization [facility] Address [address] [place] [address]. [place] [address] Care Team Providers Care School Superintendent Name Role Phone Laureano Bennett MD Primary Care Provider [phone] Laureano Bennett MD Unavailable [phone] Encounter Details Date Type Department Care [...] st Contact Info) Description 08/23/2023 Hospital Encounter [facility] [address] [place] [address] Laureano Bennett MD [address] [place] [address] [phone] documented as of this encounter Visit Diagnoses Not on filedocumented in this encounter Additional Health Concerns Assessment Noted Time PHQ-9 Depression Total Score: 0 05/17/20 23 9:06 AM WIRE LATHER documented as of this encounter Care Teams School Superintendent Relationship Specialty Start Date End Date Laureano Bennett MD [address] [place] [address] PCP - General Family Medicine 07/07/20 Laureano Bennett MD [address] [place] [address] Assigned PCP 08/14/22 documented as of this encounter
--- OUTSIDE RECORDS SUMMARY | 2023-08-03 16:13 | XMS_ITS | Encounter Summary ---
Author Name Unknown Organization [facility] Address [address] [facility] [place] [address] Care Team Providers Care Director Of Annual Giving Name Role Phone Laureano Bennett MD Primary Care Provider [phone] Laureano Bennett MD Unavailable [phone] Unavailable [phone] Encounter Details Date Type Department Care [...] st Contact Info) Description 08/23/2023 Hospital Encounter [facility]place [address] [place] [address] Laureano Bennett MD [address] [place] [address] [phone] documented as of this encounter Visit Diagnoses Not on filedocumented in this encounter Additional Health Concerns Assessment Noted Time PHQ-9 Depression Total Score: 0 05/17/20 23 9:06 AM CLAIM TAKER documented as of this encounter Care Teams Director Of Annual Giving Relationship Specialty Start Date End Date Laureano Bennett MD [address] [place] [address] PCP - General Family Medicine 07/07/20 Laureano Bennett MD [address] [place] [address] Assigned PCP 08/14/[address] [facility] [place] [address] [place] [address] Pottery Striper Dietitian, Registered 06/14/23 documented as of this encounter
--- OUTSIDE RECORDS SUMMARY | 2023-08-03 16:13 | XMS_ITS | Encounter Summary ---
Author Name Unknown Organization [place] Address [address] [place] [address] Care Team Providers Care Transport Pilot Name Role Phone Laureano Bennett MD Primary Care Provider [phone] Laureano Bennett MD Unavailable [phone] Unavailable [phone] Encounter Details Date Type Department Care [...] st Contact Info) Description 08/23/2023 Hospital Encounter [facility] Birthplace [address] [place] [address] Laureano Bennett MD [address] [place] [address] [phone] documented as of this encounter Visit Diagnoses Not on filedocumented in this encounter Additional Health Concerns Assessment Noted Time PHQ-9 Depression Total Score: 0 05/17/20 23 9:06 AM TRANSACTION MANAGER documented as of this encounter Care Teams Transport Pilot Relationship Specialty Start Date End Date Laureano Bennett MD [address] [place] [address] PCP - General Family Medicine 07/07/20 Laureano Bennett MD [address] [place] [address] Assigned PCP 08/14/[address] [facility] [place] [address] [place] [address] Division Director Dietitian, Registered 06/14/23 documented as of this encounter
--- OUTSIDE RECORDS SUMMARY | 2023-08-03 16:13 | XMS_ITS | Encounter Summary ---
Author Name Unknown Organization [facility] Address [facility] [place] [address] Care Team Providers Care Database Administration Manager Name Role Phone Laureano Bennett MD Primary Care Provider [phone] Laureano Bennett MD Unavailable [phone] Unavailable [phone] Reason for Visit * Reason Onset Date Comments Referral 06/10/2023 No available chema ts for classes virtually for expected time of the referral Encounter Details Date Type Department Care Team ([facility] st Contact Info) Description 06/10/[address] [id number] Unknown, Provider Referral (No available appts for [...] Radha Pascal RD - 06/14/2023 7:59 AM GEROPSYCHOLOGIST Contacted Yu today to discuss scheduling. Scheduled with Eugenie at 1045 am virtual visit today. Radha Pascal RD, LD, [facility] Certified Diabetes Care & [employer] Outpatient Adult [facility] - [facility] PSYCHOLOGIST * Telephone Encounter - Terri Carlos - 06/10/2023 12:32 PM CST [facility] Phone Message May a detailed message [...] (CSC): Diab ed Travel Screening: Not Applicable PSYCHOLOGIST documented in this encounter Plan of Treatment Upcoming Encounters Date Type Department Care Team (Late st Contact Info) Description 08/23/2023 Hospital Encounter [facility] Birthplace [address] [place] [address] Laureano Bennett MD [address] [place] [address] documented as of this encounter Visit Diagnoses Not on filedocumented in this encounter Additional Health Concerns Assessment Noted Time PHQ-9 Depression Total Score: 0 05/17/20 9:06 AM GEROPSYCHOLOGIST documented as of this encounter Care Teams Database Administration Manager Relationship Specialty Start Date End Date Laureano Bennett MD [address] [place] [address] PCP - General Family Medicine 07/07/20 Laureano Bennett MD [address] [place] [address] Assigned PCP 08/14/[address] [place] [address] [place] [address] Escrow Secretary Dietitian, Registered 06/14/23 documented as of this encounter
--- OUTSIDE RECORDS SUMMARY | 2023-08-03 16:13 | XMS_ITS | Encounter Summary ---
Author Name Unknown Organization [place] Address [address] [place] [address] Care Team Providers Care Line Palletizer Name Role Phone Renee Bennett MD Primary Care Provider [phone] Renee Bennett MD Unavailable [phone] Unavailable [phone] Reason for Referral * Diagnostic Imaging Ultrasound (Routine) - Pending Review Specialty Diagnoses / Procedures Referred By Tim nathan Referred To Contact Radiology. Diagnoses related condition, antepartum Procedures [facility] [place] [address] [place] [address] Referral ID Status Reason Start Date Expiration Date V isits Requested Visits Authorized [id number] Pending Review 06/21/2023 06/20/2024 1 1 R TREATMENT PLANT OPERATOR Reason for Visit * Diagnostic Imaging Ultrasound (Routine) - Pending Review Specialty Diagnoses / Procedures Referred By Tim nathan Referred To Contact Radiology. Diagnoses related condition, antepartum Procedures [facility] US Comprehensive Single Renee Bennett MD [address] [place] [address] Referral ID Status Reason Start Date Expiration Date V isits Requested Visits Authorized [id number] Pending Review 06/21/2023 06/20/2024 1 1 Encounter Details Date Type Department Care Team (Latest Contact Info) Description 07/01/2023 7:54 AM WATER TREATMENT PLANT OPERATOR - 07/01/2023 11:59 PM WATER TREATMENT PLANT OPERATOR Hospital Encounter [facility] [address] [place] [address] Jennifer Boyer MD [address] [facility] [address] [place] [address] related condition, antepartum Discharge Disposition: Home or [...] st Contact Info) Description 08/23/2023 Hospital Encounter Yesi Aquino [facility] [address] [place] [address] Renee Bennett MD [address] [place], [place] [phone] documented as of this encounter Procedures Procedure Name Priority Date/Time Associated Diagnosis Comments [facility] US COMPREHENSIVE SINGLE Routine 07/01/2023 8:44 AM WATER TREATMENT PLANT OPERATOR related condition, antepartum documented in this encounter Results * [facility] US Comprehensive Single (07/01/2023 8:44 AM WATER TREATMENT PLANT OPERATOR) Anatomical Region Laterality Modality Ultrasound 07/01/2023 7:55 AM WATER TREATMENT PLANT OPERATOR Impressions 07/01/2023 10:53 AM WATER TREATMENT PLANT OPERATOR IMPRESSION ----- 1) Brumfield intrauterine at [...] BPP was reassuring. Narrative 07/01/2023 10:53 AM WATER TREATMENT PLANT OPERATOR ?Comprehensive ----- Pat. Name: YU RENEE ? Study Date: ??07/01/2023 7:55am Pat. NO: ??[id number] ?Referring ??MD: RENEE BENNETT Site: ??[facility] ? Supervisor Contact And Service Clerks: Kirstin Gold [facility] : ??1995 ?Age: ?? 27 [...] 4 lb 5 ?oz EFW by ?Hadlock (LSL-US-LI-FL) Head / Face / Neck Biometry: Algorithm Design Engineer ? 6.3 ? mm CM ?8.5 ? [...] vena cava. Inferior vena cava. 3-vessel view. 4-isfddj-rtpmgjf view. ? Cardiac position. Cardiac size. Cardiac [...] the patient (reviewing medical records/tests), in direct czxa-cr-ourn contact with the patient during her visit with the majority spent counseling and discussing the plan of care and documenting the visit in the electronic medical record. Please see note for details. Procedure Note Jennifer Boyer MD - 07/01/2023 Comprehensive ----- Pat. Name: YU RENEE Study Date: 07/01/2023 7:55am Pat. NO: [id number] Referring MD: RENEE BENNETT Site: [facility] Supervisor Contact And Service Clerks: Kirstin Gold RDMS : 1995 Age: 27 [...] 4 lb 5 oz EFW by Hadlock (ZZO-UI-WT-FL) Head / Face / Neck Biometry: Algorithm Design Engineer 6.3 mm CM 8.5 mm ANATOMY ----- The following structures appear normal: Head / Neck Cranium. Head size. Head shape.Lateral ventricles. Choroid plexus. Midline falx. Cavum septi pellucidi.Cerebellum. Cisterna magna. Parenchyma. Thalami. Vermis. Neck. Face Lips. Heart / Thorax 4-chamber view. RVOT view. LVOT view.Situs. Bicaval view. Superior vena cava. Inferior vena cava. 3-vesselview. 8-kyykvc-mbndgyk view. Cardiac position. Cardiac size.Cardiac rhythm. Right [...] see the patient (reviewing medical records/tests), in vuypvirhim-tj-drwx contact with the patient during her visit [...] Total Score: 0 05/17/20 23 9:06 AM WATER TREATMENT PLANT OPERATOR documented as of this encounter Care Teams Line Palletizer Relationship Specialty Start [place] [address] [place] [address] PCP - General Family Medicine 07/07/20 Renee Bennett MD [address] [place] [address] Assigned PCP 08/14/[address] [place] [address] [place] [address] Glassware Defect Repairer Dietitian, Registered 06/14/23 documented as of this encounter
--- OUTSIDE RECORDS SUMMARY | 2023-08-03 16:13 | XMS_ITS | Encounter Summary ---
Author Name Unknown Organization [place] Address [address] [place] [address] Care Team Providers Care Generation Manager Name Role Phone Laureano Bennett MD Primary Care Provider [phone] Laureano Bennett MD Unavailable [phone] Reason for Referral * Patient Education (Urgent: 3-5 Days) - Referral NOT Required Specialty Diagnoses / Procedures Referred By Contac t Referred To Contact Diabetes Education Diagnoses Gestational diabetes mellitus (GDM), antepartum, gestational diabetes method of control unspecified Laureano Bennett MD [address] [place] [address] Referral ID Status Reason Start Date Expiration Date V isits Requested Visits Authorized [id number] Referral NOT Required 06/03/2023 06/02/2024 1 1 [...] office within 2 business days, please call [phone] for [facility], for [facility] or [phone] for the [facility]. Medicare covers: 10 hours of initial DSMT [...] and G0109) and Medical Nutrition Therapy (Codes 45019 and 52689) benefits and ask which blood glucose monitor brands are covered by your plan. Please bring the following with you to your appointment: 1. List of current medications 2. List of Blood Glucose Monitor brands that are covered by your insurance plan 3. Blood Glucose Monitor and log book 4. Food records for the 3 days prior to your visit ITY WORKER ROLLER SHOP Reason for Visit * Reason Comments Care Encounter Details Date Type Department Care Team (Late st Contact Info) Description 06/03/2023 8:00 AM UTILITY WORKER ROLLER SHOP Office Visit [address] [phone] Laureano Bennett MD [address] [place] [address] , unspecified gestational age (Primary Dx); Varicose [...] Comments Blood Pressure 118/64 06/03/2023 7:53 AM UTILITY WORKER ROLLER SHOP Pulse 73 06/03/2023 7:53 AM UTILITY WORKER ROLLER SHOP Temperature 36.6 ??C (97.9 ??F) 06/03/2023 7:53 AM CS T Respiratory Rate 16 06/03/2023 7:53 AM UTILITY WORKER ROLLER SHOP Oxygen Saturation 100% 06/03/2023 7:53 AM UTILITY WORKER ROLLER SHOP Inhaled Oxygen Concentration - - Weight 79.6 kg (175 lb 6.4 oz) 06/03/2023 7:53 A M UTILITY WORKER ROLLER SHOP Height 174 cm (5' 8.5) 06/03/2023 7:53 AM UTILITY WORKER ROLLER SHOP Body Mass Index 26.28 06/03/2023 7:53 AM UTILITY WORKER ROLLER SHOP documented in this encounter Patient Instructions * Patient Instructions* Laureano Bennett MD - 06/03/2023 8:00 AM UTILITY WORKER ROLLER SHOP Real Food for Gestational Diabetes: An Effective Alternative to the Conventional Nutrition Approach- Eloise Green ?Fasting and preprandial blood glucose concentration: <95 mg/dL (5.3 mmol/L) ?One-hour postprandial blood glucose concentration: <140 mg/dL (7.8 mmol/L) ?Two-hour postprandial glucose concentration: <120 mg/dL (6.7 mmol/L) ITY WORKER ROLLER SHOP documented in this encounter Progress Notes * [...] - Eloise Green Return in 2 weeks. ITY WORKER ROLLER SHOP documented in this encounter Plan of Treatment Upcoming Encounters Date Type Department Care Team (Late st Contact Info) Description 08/23/2023 Hospital Encounter [facility] [address] [place] [address] Laureano Bennett MD [address] [place] [address] Scheduled Referrals Name Type Priority Associated Diagnoses Orde r Schedule AMB Adult Automation And Controls Supervisor Referral Referral Urgent: 3-5 Days Gestational diabetes mellitus (GDM), antepartum, gestational diabetes method of control unspecified Expected: 06/03/2023 (Approximate), Expires: 06/03/2024 documented as of this encounter Procedures Procedure Name Priority Date/Time Associated Diagnosis Comments GLUCOSE ALBUMIN OB URINE Routine 06/03/2023 8:42 AM UTILITY WORKER ROLLER SHOP , unspecified gestational age documented in this encounter Results * (ABNORMAL) Glucose and albumin, OB urine (06/03/2023 8:42 AM UTILITY WORKER ROLLER SHOP) Protein Albumin Urine Negative Negative mg/dL 06/03/2023 8:44 AM UTILITY WORKER ROLLER SHOP [facility] Glucose Urine 100(A) Negative mg/dL 06/03/2023 8:44 AM UTILITY WORKER ROLLER SHOP [facility] Urine MID-STREAM URINE SPECIMEN / Unknown Non-blood Collection / Unknown 06/03/2023 8:42 AM UTILITY WORKER ROLLER SHOP 06/03/2023 8:42 AM UTILITY WORKER ROLLER SHOP Laureano Bennett MD LAB - URINE ORDERABL ES [facility] [address] [place] [address] Lab (no room number, 1st floor of clinic) [place] [address], [facility] [phone] documented in this encounter Visit Diagnoses Diagnosis , unspecified gestational age- Primary Varicose veins during Gestational diabetes mellitus (GDM), antepartum, gestational diabetes method of control unspecified documented in this encounter Additional Health Concerns Assessment Noted Time PHQ-9 Depression Total Score: 0 05/17/20 23 9:06 AM UTILITY WORKER ROLLER SHOP documented as of this encounter Care Teams Generation Manager Relationship Specialty Start Date End Date Laureano Bennett MD [address] [place] [address] PCP - General Family Medicine 07/07/20 Laureano Bennett MD [address] [place] [address] Assigned PCP 08/14/22 documented as of this encounter
--- OUTSIDE RECORDS SUMMARY | 2023-08-03 16:13 | XMS_ITS | Encounter Summary ---
Author Name Unknown Organization [place] Address [address] [facility] [place] [address] Care Team Providers Care Vegetable Worker Name Role Phone Laureano Bennett MD Primary Care Provider [phone] Laureano Bennett MD Unavailable [phone] Encounter Details Date Type Department Care Team (Late st Contact Info) Description 05/31/2023 8:00 AM RANGE RIDER Lab [facility] [address] [place] [address] Elevated glucose Social History Tobacco Use [...] st Contact Info) Description 08/23/2023 Hospital Encounter [facility] [address] [place] [address] [place] [address] [place] [address] documented as of this encounter Procedures Procedure Name Priority Date/Time Associated Diagnosis Comments GESTATIONAL GLUCOSE TOLERANCE TESTING, 3 HOUR Routine 05/31/2023 11:21 AM RANGE RIDER Elevated glucose GESTATIONAL GLUCOSE TOLERANCE TESTING, 2 HOUR Routine 05/31/2023 10:14 AM RANGE RIDER Elevated glucose GESTATIONAL GLUCOSE TOLERANCE TESTING, 1 HOUR Routine 05/31/2023 9:17 AM RANGE RIDER Elevated glucose GESTATIONAL GLUCOSE TOLERANCE TESTING, FASTING Routine 05/31/2023 8:00 AM RANGE RIDER Elevated glucose GESTATIONAL GLUCOSE TOLERANCE TESTING, 3 HOUR Routine 05/31/2023 8:00 AM RANGE RIDER Elevated glucose documented in this encounter Results * Gestational Glucose Tolerance Testing, 3 Hour (05/31/2023 11:21 AM RANGE RIDER) Gestational GTT 3 Hr Post Dose 110 60 - 139 mg/dL 06/02/2023 12:14 AM RANGE RIDER [facility] Blood BLOOD SPECIMEN / Unknown Venipuncture / Unknown 05/31/2023 11:21 AM RANGE RIDER 05/31/2023 11:21 AM RANGE RIDER Narrative [facility] - 06/02/2023 12:14 AM RANGE RIDER Blood glucose levels collected at fasting, 1 [...] LAB - BLOOD ORDERABL ES [facility] Lab [address] [facility], [address] [place] [address], [facility] [phone] * (ABNORMAL) Gestational Glucose Tolerance Testing, 2 Hour (05/31/2023 10:14 AM RANGE RIDER) Gestational GTT 2 Hr Post Dose 218(H) 60 - 154 mg/dL 06/01/2023 2:26 PM RANGE RIDER [facility] Blood BLOOD SPECIMEN / Unknown Venipuncture / Unknown 05/31/2023 10:14 AM RANGE RIDER 05/31/2023 10:14 AM RANGE RIDER Laureano Bennett MD LAB - BLOOD ORDERABL ES [facility] [address] [facility], [address] [place] [address], [facility] [phone] * (ABNORMAL) Gestational Glucose Tolerance Testing, 1 Hour (05/31/2023 9:17 AM RANGE RIDER) Gestational GTT 1 Hr Post Dose 192(H) 60 - 179 mg/dL 05/31/2023 5:31 PM RANGE RIDER [facility] Blood BLOOD SPECIMEN / Unknown Venipuncture / Unknown 05/31/2023 9:17 AM RANGE RIDER 05/31/2023 9:17 AM RANGE RIDER Laureano Bennett MD LAB - BLOOD ORDERABL ES [facility] [place] [facility] [address] [facility], [address] [place] [address], [facility] [phone] * (ABNORMAL) Gestational Glucose Tolerance Testing, Fasting (05/31/2023 8:00 AM RANGE RIDER) Gestational GTT Fasting 123(H) 60 - 94 mg/dL 05/31/2023 7:28 PM RANGE RIDER [facility] Blood BLOOD SPECIMEN / Unknown Venipuncture / Unknown 05/31/2023 8:00 AM RANGE RIDER 05/31/2023 8:06 AM RANGE RIDER Laureano Bennett MD LAB - BLOOD ORDERABL ES Performing Organization Address City/[facility]/ZIP Co de Phone Number [facility] [place] [facility] [address] [facility], [address] [place] [address], [facility] [phone] documented in this encounter Visit Diagnoses Diagnosis Elevated glucose Other abnormal glucose documented in this encounter Additional Health Concerns Assessment Noted Time PHQ-9 Depression Total Score: 0 05/17/20 23 9:06 AM RANGE RIDER documented as of this encounter Care Teams Vegetable Worker Relationship Specialty Start Date End Date Laureano Bennett MD [address] [place] [address] PCP - General Family Medicine 07/07/20 Laureano Bennett MD [address] [place] [address] Assigned PCP 08/14/22 documented as of this encounter
--- OUTSIDE RECORDS SUMMARY | 2023-08-03 16:13 | XMS_ITS | Encounter Summary ---
Author Name Unknown Organization [place] Address [address] [place] [address] Care Team Providers Care Charging Crane Operator Name Role Phone Renee Bennett MD Primary Care Provider Renee Bennett MD Unavailable [phone] Unavailable [phone] Reason for Referral * Diagnostic Imaging Ultrasound (Routine) - Pending Review Specialty Diagnoses / Procedures Referred By Tim t Referred To Contact Radiology. Diagnoses related condition, antepartum Procedures [facility] [place] [address] [place] [address] Referral ID Status Reason Start Date Expiration Date V isits Requested Visits Authorized [id number] Pending Review 06/21/2023 06/20/2024 1 1 REPAIRMAN Encounter Details Date Type Department Care Team (Late st Contact Info) Description 06/21/[address] [facility] [place] [address] [facility] [address] [place] [phone] Renee Bennett MD [facility] [place], [place] [phone] related condition, antepartum (Primary Dx) Social History [...] st Contact Info) Description 08/23/2023 Hospital Encounter [facility] [address] [place] [address] Renee Bennett MD [address] [place], [place] [address] documented as of this encounter Results * [facility] US Comprehensive Single (07/01/2023 8:44 AM SHOE REPAIRMAN) Anatomical Region Laterality Modality Ultrasound 07/01/2023 7:55 AM SHOE REPAIRMAN Impressions 07/01/2023 10:53 AM SHOE REPAIRMAN IMPRESSION ----- 1) Brumfield intrauterine at 32w [...] BPP was reassuring. Narrative 07/01/2023 10:53 AM SHOE REPAIRMAN ?Comprehensive ----- Pat. Name: YU RENEE ? Study Date: ??07/01/2023 7:55am Pat. NO: ??[id number] ?Referring ??: RENEE BENNETT Site: ??[facility] ? Tuck Pointer Helper: Kirstin Gold RDMS : ??1995 ?Age: ?? [...] 4 lb 5 ?oz EFW by ?Hadlock (SSE-EB-NS-FL) Head / Face / Neck Biometry: Wash Tank Tender ? 6.3 ? mm CM ?8.5 ? [...] vena cava. Inferior vena cava. 3-vessel view. 9-qqozyf-lbdapbe view. ? Cardiac position. Cardiac size. Cardiac [...] the patient (reviewing medical records/tests), in direct dqao-dc-qdpp contact with the patient during her visit with the majority spent counseling and discussing the plan of care and documenting the visit in the electronic medical record. Please see note for details. Procedure Note Jennifer Boyer MD - 07/01/2023 Comprehensive ----- Pat. Name: YU RENEE Study Date: 07/01/2023 7:55am Pat. NO: [id number] Referring MD: RENEE BENNETT Site: [facility] Tuck Pointer Helper: Kirstin Gold RDMS : 1995 Age: 27 ----- INDICATION ----- Gestational Diabetes on Metformin. History of IUFD. Declined screening. METHOD ----- Transabdominal ultrasound examination. View: Sufficient ----- Brumfield . Number of fetuses: 1 DATING ----- DateDetailsGest. age [place] LMP 3Cycle: regular cycle32 w + 3 d 08/23/2023 [...] 4 lb 5 oz EFW by Hadlock (BCN-BO-PJ-FL) Head / Face / Neck Biometry: Wash Tank Tender 6.3 mm CM 8.5 mm ANATOMY ----- The following structures appear normal: Head / Neck Cranium. Head size. Head shape.Lateral ventricles. Choroid plexus. Midline falx. Cavum septi pellucidi.Cerebellum. Cisterna magna. Parenchyma. Thalami. Vermis. Neck. Face Lips. Heart / Thorax 4-chamber view. RVOT view. LVOT view.Situs. Bicaval view. Superior vena cava. Inferior vena cava. 3-vesselview. 3-pbokql-egknxvv view. Cardiac position. Cardiac size.Cardiac rhythm. Right [...] see the patient (reviewing medical records/tests), in tkrfhfwxtw-uk-hmvf contact with the patient during her visit [...] The BPP was reassuring. Renee Bennett MD [facility] US ORDERABLE S documented in this encounter Visit Diagnoses Diagnosis related condition, antepartum- Primary related condition, antepartum documented in this encounter Additional Health Concerns Assessment Noted Time PHQ-9 Depression Total Score: 0 05/17/20 23 9:06 AM SHOE REPAIRMAN documented as of this encounter Care Teams Charging Crane Operator Relationship Specialty Start Date End Date Renee Bennett MD [address] [place] [address] PCP - General Family Medicine 07/07/20 Renee Bennett MD [address] [place] [address] Assigned PCP 08/14/[address] [facility] [address] [address] [place] [address] Structural Engineering Technician Dietitian, Registered 06/14/23 documented as of this encounter
--- OUTSIDE RECORDS SUMMARY | 2023-08-03 16:13 | XMS_ITS | Encounter Summary ---
Author Name Unknown Organization [facility] Address [address] [place] [address]. [place] [address] Care Team Providers Care Air And Hydronic Balancing Technician Name Role Phone Laureano Bennett MD Primary Care Provider [phone] Laureano Bennett MD Unavailable [phone] Unavailable [phone] Reason for Visit * Reason Comments Diabetes Education Gestational Diabetes Encounter Details Date Type Department Care Team (Late st Contact Info) Description 06/14/2023 10:45 AM POLYSOMNOGRAPHY TECH Virtual Visit [address] [phone] Eugenie Zee, ALEX [address] [address] Gestational diabetes mellitus (GDM), antepartum, gestational diabetes [...] Eugenie Zee RD - 06/14/2023 10:45 AM POLYSOMNOGRAPHY TECH It was good to meet you today. [...] concerns. Eugenie Zee MS, RD, LD, CDE [facility] Education and Nutrition Services for the [facility]: For Your Diabetes Education or Nutrition Appointments Call: [phone] For Diabetes Education and Nutrition Related Questions: E-mail: [email or web address] If you need a medication refill please [...] 2 slices of cheese 2 TBS Peanut butter/[place] butter/Sun butter ?? cup Cottage cheese 2% [...] Carbohydrate list (about 30 grams of carbohydrate) Latvian Muffin 10 crackers 1 hamburger or hot dog bun 1 whole wheat mónica 6 maria g cracker squares 1 cup full fat ice cream - no candy or sauce Iraqi yogurt - 30 grams of carbohydrate 2 - 6 inch tortillas corn or flour 2 toaster waffles - no syrup 6 cups popcorn - unsweetened 1 cup of unsweetened lentils or beans 1 cup potato salad You can always add vegetables with dip, salad dressing or salsa also. SOMNOGRAPHY TECH documented in this encounter Progress Notes * Eugenie Zee RD - 06/14/2023 10:45 AM CST Images from the original note were not included. Diabetes Self-Management Education & Support Type of service: Video Visit If the video visit is dropped, the video visit invitation should be resent by: Text to cell phone: [phone] Originating Location (pt. Location): Home Distant Location (provider location): [facility] Mode of Communication: Video Conference via iMusician Video Start Time: 10:44 Video End Time [...] GTTG3 110 05/31/2023 Lifestyle and Health Behaviors: Cultural/jew diet restrictions?: No Meal planning/habits: Carb counting [...] brussels sprouts Dinner: vegetables, protein Snacks: Snack- south african yogurt, cheese, nuts, guacamole HS snack- eggs [...] Glucose Results, Ketone Testing,When to Call a Cloth Finishing Range Operator Chief or OB Provider, Healthy Eating During , [...] eat CHO and protein/fat at all meals/snacks. Call/e-mail/Ob Hospitalist Grouphart message certified lactation educator if 3 or more blood sugars are above the goal in 1 week, if ketones are positive, or with questions/concerns. Eugenie Zee MS, RD, LD, CDE Time Spent: 50 minutes Encounter Type: Individual Any diabetes medication dose changes were made via the CDE Protocol and Collaborative Practice Agreement with the patient's CAMOUFLAGE ASSEMBLER provider. A copy of this encounter was shared with the provider. SOMNOGRAPHY TECH documented in this encounter Plan of Treatment Upcoming Encounters Date Type Department Care Team (Late st Contact Info) Description 08/23/2023 Hospital Encounter [facility] [address] [place] [address] Laureano Bennett MD [address] [place] [phone] documented as of this encounter Visit Diagnoses Diagnosis Gestational diabetes mellitus (GDM), antepartum, gestational diabetes method of control unspecified documented in this encounter Additional Health Concerns Assessment Noted Time PHQ-9 Depression Total Score: 0 05/17/20 9:06 AM POLYSOMNOGRAPHY TECH documented as of this encounter Care Teams Air And Hydronic Balancing Technician Relationship Specialty Start Date End Date Laureano Bennett MD [address] [place] [address] PCP - General Family Medicine 07/07/20 Laureano Bennett MD [address] [place] [address] Assigned PCP 08/14/[address] [place] [address] [place] [address] Cloth Finishing Range Operator Chief Dietitian, Registered 06/14/23 documented as of this encounter
--- OUTSIDE RECORDS SUMMARY | 2023-08-03 16:13 | XMS_ITS | Encounter Summary ---
Author Name Unknown Organization [place] Address [address] [facility] [place] [address] Care Team Providers Care Talend Etl Developer Name Role Phone Laureano Bennett MD Primary Care Provider [phone] Laureano Bennett MD Unavailable [phone] Unavailable [phone] Encounter Details Date Type Department Care [...] st Contact Info) Description 08/23/2023 Hospital Encounter [facility] Birthplace [address] [place] [address] Laureano Bennett MD [address] [place] [address] [phone] documented as of this encounter Visit Diagnoses Not on filedocumented in this encounter Additional Health Concerns Assessment Noted Time PHQ-9 Depression Total Score: 0 05/17/20 23 9:06 AM NETWORK CONTRACTOR documented as of this encounter Care Teams Talend Etl Developer Relationship Specialty Start Date End Date Laureano Bennett MD [address] [place] [address] 86015 PCP - General Family Medicine 07/07/20 Laureano Bennett MD [address] [place] [address] 41454 Assigned PCP 08/14/[address] [facility] [place] [address] [place] [address] Tower Loader Operator Dietitian, Registered 06/14/23 documented as of this encounter
--- OUTSIDE RECORDS SUMMARY | 2023-08-03 16:13 | XMS_ITS | Encounter Summary ---
Author Name Unknown Organization [place] Address [address] [facility] [place] [address] Care Team Providers Care Checkering Machine Operator Name Role Phone Laureano Bennett MD Primary Care Provider [phone] Laureano Bennett MD Unavailable [phone] Unavailable [phone] Reason for Visit * Reason Comments Ultrasound L2-GDM Encounter Details Date Type Department Care Team ([facility] st Contact Info) Description 06/22/2023 PRE VISIT [facility] [place] [address] [facility] [address] [place] [address] Violette Zhou RN Ultrasound (L2-GDM) [...] [facility] Birthplace [address] [place] [address] Laureano Bennett MD [address] [place] [address] [phone] documented as of this encounter Visit Diagnoses Not on filedocumented in this encounter Additional Health Concerns Assessment Noted Time PHQ-9 Depression Total Score: 0 05/17/20 23 9:06 AM TWISTING FRAME OPERATOR documented as of this encounter Care Teams Checkering Machine Operator Relationship Specialty Start Date End Date Laureano Bennett MD [address] [place] [address]139 PCP - General Family Medicine 07/07/20 Laureano Bennett MD [address] [place] [address] 43957 Assigned PCP 08/14/[address] [facility] [place] [address] [place] [address] Service Order Dispatcher Chief Dietitian, Registered 06/14/23 documented as of this encounter
--- OUTSIDE RECORDS SUMMARY | 2023-08-03 16:14 | XMS_ITS | Encounter Summary ---
Author Name Unknown Organization [place] Address [address] [place] [address] Care Team Providers Care Semiconductor Wafers Marker Name Role Phone Laureano Bennett MD Primary Care Provider [phone] Laureano Bennett MD Unavailable [phone] Reason for Referral * Diagnostic Imaging Ultrasound (Routine) - Pending Review Specialty Diagnoses / Procedures Referred By Contac t Referred To Contact Radiology. Diagnoses Encounter for supervision of other normal in second trimester Procedures US OB > 14 Weeks Laureano Bennett MD [address] [place] [address] Referral ID Status Reason Start Date Expiration Date V isits Requested Visits Authorized [id number] Pending Review 03/10/2023 03/09/2024 1 1 Reason for Visit * Reason Comments Care Encounter Details Date Type Department Care Team (Late st Contact Info) Description 03/10/2023 8:20 AM CDT Office Visit [address] [phone] Laureano Bennett MD [address] [place] [address] [phone] Encounter for supervision of other normal in [...] MD - 03/10/2023 8:20 AM CDT Call [phone] to schedule ultrasound. documented in this encounter [...] Encounter [facility] Birth[facility] [address] [place] [address] Laureano Bennett MD [address] [place] [address] documented as of this encounter Procedures Procedure Name Priority Date/Time Associated Diagnosis Comments GLUCOSE ALBUMIN OB URINE Routine 03/10/2023 8:19 AM CDT documented in this encounter Results * US OB > 14 Weeks (04/11/2023 4:14 PM CDT) Anatomical Region Laterality Modality Abdomen/Pelvis Ultrasound Narrative 04/11/2023 4:23 PM CDT Table formatting from the original result was not included. [facility] ULTRASOUND - OB > 14 Weeks [...] Lynne Rubi, DO ?? Obstetrics and Gynecology [facility] Laureano Bennett MD IMG US ORDERABLES * Glucose and albumin, OB urine (03/10/2023 8:19 AM CDT) Protein Albumin Urine Negative Negative mg/dL 03/10/2023 9:27 AM CDT [facility] Glucose Urine Negative Negative mg/dL 03/10/2023 9:27 AM CDT [facility] Urine MID-STREAM URINE SPECIMEN / Unknown Non-blood Collection / Unknown 03/10/2023 8:19 AM CDT 03/10/2023 9:25 AM CDT Laureano Bennett MD LAB - URINE ORDERABL ES [facility] [address] [place] [address] Lab (no room number, 1st floor of clinic) [place] [phone], [facility] [phone] documented in this encounter Visit Diagnoses Diagnosis Encounter for supervision of other normal in second trimester- Primary Encounter for supervision of other normal in second trimester documented in this encounter Additional Health Concerns Assessment Noted Time PHQ-9 Depression Total Score: 12 023 9:01 AM CDT documented as of this encounter Care Teams Semiconductor Wafers Marker Relationship Specialty Start Date End Date Laureano Bennett MD [address] [place] [address]20 PCP - General Family Medicine 07/07/20 Laureano Bennett MD [address] [place] [address] 48394 Assigned PCP 08/14/22 documented as of this encounter
--- OUTSIDE RECORDS SUMMARY | 2023-08-03 16:14 | XMS_ITS | Encounter Summary ---
Author Name Unknown Organization [place] Address [address] [place] [address] Care Team Providers Care Custom Harvester Name Role Phone Laureano Bennett MD Primary Care Provider [phone] Laureano Bennett MD Unavailable [phone] Encounter Details Date Type Department Care Team (Late st Contact Info) Description 02/10/2023 MyC Medical Advice [address] [address] Laureano eBnnett MD [address] [place] [address] Social History Tobacco Use Types Packs/Day [...] Contact Info) Description 08/23/2023 Hospital Encounter [facility] [address] [place] [address] Laureano Bennett MD [address] [place] [address] [phone] documented as of this encounter Visit Diagnoses Not on filedocumented in this encounter Additional Health Concerns Assessment Noted Time PHQ-9 Depression Total Score: 12 023 9:01 AM CDT documented as of this encounter Care Teams Custom Harvester Relationship Specialty Start Date End Date Laureano Bennett MD [address] [place] [address]76 PCP - General Family Medicine 07/07/20 Laureano Bennett MD [address] [place] [address]1542 Assigned PCP 08/14/22 documented as of this encounter
--- OUTSIDE RECORDS SUMMARY | 2023-08-03 16:14 | XMS_ITS | Encounter Summary ---
Author Name Unknown Organization [place] Address [address] [place] [address] Care Team Providers Care Dog Day Care Attendant Name Role Phone Laureano Bennett MD Primary Care Provider Laureano Bennett MD Unavailable [phone] Unavailable [phone] Reason for Visit * Reason Onset Date Comments MyChart Communication 02/20/2023 Encounter Details Date Type Department Care Team ([facility] st Contact Info) Description 02/20/2023 MyC Medical Advice [address] [phone] Laureano Bennett MD [address] [place] [address] MyChart Communication Social History Tobacco Use [...] Telephone Encounter - Megha Berg RN - 02/23/2023 9:34 AM CDT My chart message sent Awaiting reply Megha Berg RN, BSN [facility] Triage documented in this encounter Plan of Treatment Upcoming Encounters Date Type Department Care Team (Late st Contact Info) Description 08/23/2023 Hospital Encounter [facility] Birthplace [address] [place] [phone] Laureano Bennett MD [address] [place] [address] [phone] documented as of this encounter Visit Diagnoses Not on filedocumented in this encounter Additional Health Concerns Assessment Noted Time PHQ-9 Depression Total Score: 12 023 9:01 AM CDT documented as of this encounter Care Teams Dog Day Care Attendant Relationship Specialty Start Date End Date Laureano Bennett MD [address] [place] [address] 534762 PCP - General Family Medicine 07/07/20 Laureano Bennett MD [address] [place] [address] 24081 Assigned PCP 08/14/[address] [facility] [place] [address] [place] [address] Kiln Charger Dietitian, Registered 06/14/23 documented as of this encounter
--- OUTSIDE RECORDS SUMMARY | 2023-08-03 16:14 | XMS_ITS | Encounter Summary ---
Author Name Unknown Organization [place] Address [address] [place] [address] Care Team Providers Care Supervisor Metal Furniture Fabrication Name Role Phone Laureano Bennett MD Primary Care Provider [phone] Laureano Bennett MD Unavailable [phone] Reason for Visit * Reason Onset Date Comments MyChart Communication 01/28/2023 Encounter Details Date Type Department Care Team ([facility] Contact Info) Description 01/28/2023 MyC Medical Advice [address] [phone] Laureano Bennett MD [address] [place] [address] MyChart Communication Social History Tobacco Use [...] advise Thank you Megha Berg RN, BSN [place] Triage * Telephone Encounter - Megha Berg RN - 01/31/2023 8:01 AM CDT My chart message sent Megha Berg RN, BSN [facility] [place] Triage documented in this encounter Plan of Treatment Upcoming Encounters Date Type Department Care Team (Late st Contact Info) Description 08/23/2023 Hospital Encounter [facility] Birthplace [address] [place] [address] Laureano Bennett MD [address] [place] [address] [phone] documented as of this encounter Visit Diagnoses Not on filedocumented in this encounter Additional Health Concerns Assessment Noted Time PHQ-9 Depression Total Score: 12 01/04/ 023 9:01 AM CDT documented as of this encounter Care Teams Supervisor Metal Furniture Fabrication Relationship Specialty Start Date End Date Laureano Bennett MD [address] [place] [address] PCP - General Family Medicine 07/07/20 Laureano Bennett MD [address] [place] [address] Assigned PCP 08/14/22 documented as of this encounter
--- OUTSIDE RECORDS SUMMARY | 2023-08-03 16:14 | XMS_ITS | Encounter Summary ---
Author Name Unknown Organization [place] Address [address] [place] [address] Care Team Providers Care Insulation Board Calender Operator Name Role Phone Laureano Bennett MD Primary Care Provider [phone] Laureano Bennett MD Unavailable [phone] Reason for Visit * Reason Comments Care Encounter Details Date Type Department Care Team ([facility] st Contact Info) Description 04/08/2023 8:00 AM CDT Office Visit [address] [phone] Laureano Bennett MD [address] [place] [address] [phone] Encounter for supervision of other normal in [...] st Contact Info) Description 08/23/2023 Hospital Encounter [facility] Birthplace [address] [place] [address] Laureano Bennett MD [address] [place] [address] 289782 documented as of this encounter Procedures Procedure [...] LAB - URINE ORDERABL ES [facility] [place] [facility] [address] [place] [address] S. E Lab (no room number, 1st floor of clinic) [place] [address] [phone] documented in this encounter Visit Diagnoses Diagnosis Encounter for supervision of other normal in second trimester- Primary documented in this encounter Additional Health Concerns Assessment Noted Time PHQ-9 Depression Total Score: 12 07/2 023 9:01 AM CDT documented as of this encounter Care Teams Insulation Board Calender Operator Relationship Specialty Start Date End Date Laureano Bennett MD [address] [place] [address]4849 PCP - General Family Medicine 07/07/20 [place] [address] [place] [address] 97830 Assigned PCP 08/14/22 documented as of this encounter
--- OUTSIDE RECORDS SUMMARY | 2023-08-03 16:14 | XMS_ITS | Encounter Summary ---
Author Name Unknown Organization [place] Address [address] [place] [address]. [place] [address] Care Team Providers Care Wrapping Machine Tender Name Role Phone Laureano Bennett MD Primary Care Provider [phone] Laureano Bennett MD Unavailable [phone] Unavailable [phone] Reason for Visit * Reason Onset Date Comments MyChart Communication 03/31/2023 Encounter Details Date Type Department Care Team ([facility] st Contact Info) Description 03/31/2023 MyC Medical Advice [address] [phone] Laureano Bennett MD [address] [place] [address] [phone] MyChart Communication Social History Tobacco Use Types [...] non detailed VM Megha Berg RN, BSN [place] Triage * Telephone Encounter - Laureano Bennett [...] for review too Megha Berg RN, BSN [facility] Triage documented in this encounter Plan of Treatment Upcoming Encounters Date Type Department Care Team (Late st Contact Info) Description 08/23/2023 Hospital Encounter [facility] Birthplace [address] [place] [address] [place] [address] [place] [address] [phone] documented as of this encounter Visit Diagnoses Not on filedocumented in this encounter Additional Health Concerns Assessment Noted Time PHQ-9 Depression Total Score: 12 023 9:01 AM CDT documented as of this encounter Care Teams Wrapping Machine Tender Relationship Specialty Start Date End Date Laureano Bennett MD [address] [place] [address] PCP - General Family Medicine 07/07/20 Laureano Bennett MD [address] [place] [address]347 Assigned PCP 08/14/[address] [place] [address] [place] [address] Manager Of Warehouse Dietitian, Registered 06/14/23 documented as of this encounter
--- OUTSIDE RECORDS SUMMARY | 2023-08-03 16:14 | XMS_ITS | Encounter Summary ---
Author Name Unknown Organization [place] Address [address] [place] [address] Care Team Providers Care Web Development Manager Name Role Phone Laureano Bennett MD Primary Care Provider [phone] Laureano Bennett MD Unavailable [phone] Unavailable [phone] Encounter Details Date Type Department Care Team (Late Contact Info) Description 01/14/2023 MyC Medical Advice [address] [phone] Laureano Bennett MD [address] [place] [address] Social History Tobacco Use Types Packs/Day [...] Department Care Team (Late Contact Info) Description 08/23/2023 Hospital Encounter [facility] Birthplace [address] [place] [phone] Laureano Bennett MD [address] [place] [address] 501442 documented as of this encounter Visit Diagnoses Not on filedocumented in this encounter Additional Health Concerns Assessment Noted Time PHQ-9 Depression Total Score: 12 023 9:01 AM CDT documented as of this encounter Care Teams Web Development Manager Relationship Specialty Start Date End Date Laureano Bennett MD [address] [place] [address] 638362 PCP - General Family Medicine 07/07/20 Laureano Bennett MD [address] [place] [address] [phone] Assigned PCP 08/14/[address] [place] [address] [place] [address] Professor Of Engineering Dietitian, Registered 06/14/23 documented as of this encounter
--- OUTSIDE RECORDS SUMMARY | 2023-08-03 16:14 | XMS_ITS | Encounter Summary ---
Author Name Unknown Organization [place] Address [address] [place] [address]. [place] [address] Care Team Providers Care Engraver Rubber Name Role Phone Laureano Bennett MD Primary Care Provider [phone] Laureano Bennett MD Unavailable [phone] Encounter Details Date Type Department Care [...] Health [facility] Birthplace [address] [place] [address] Laureano Bennett MD [address] [place] [address] [phone] documented as of this encounter Visit Diagnoses Not on filedocumented in this encounter Additional Health Concerns Assessment Noted Time PHQ-9 Depression Total Score: 12 023 9:01 AM CDT documented as of this encounter Care Teams Engraver Rubber Relationship Specialty Start Date End Date Laureano Bennett MD [address] [place] [address] PCP - General Family Medicine 07/07/20 Laureano Bennett MD [address] [place] [address] Assigned PCP 08/14/22 documented as of this encounter
--- OUTSIDE RECORDS SUMMARY | 2023-08-03 16:14 | XMS_ITS | Encounter Summary ---
Author Name Unknown Organization [place] Address [address] [place] [address]. [place] [address] Care Team Providers Care Take Up Operator Name Role Phone Laureano Bennett MD Primary Care Provider [phone] Laureano Bennett MD Unavailable [phone] Encounter Details Date Type Department Care [...] st Contact Info) Description 08/23/2023 Hospital Encounter [facility] Birthplace [address] [place] [address] Laureano Bennett MD [address] [place] [address] [phone] documented as of this encounter Visit Diagnoses Not on filedocumented in this encounter Additional Health Concerns Assessment Noted Time PHQ-9 Depression Total Score: 12 023 9:01 AM CDT documented as of this encounter Care Teams Take Up Operator Relationship Specialty Start Date End Date Laureano Bennett MD [address] [place] [address] PCP - General Family Medicine 07/07/20 Laureano Bennett MD [address] [place] [address]228 Assigned PCP 08/14/22 documented as of this encounter
--- OUTSIDE RECORDS SUMMARY | 2023-08-03 16:14 | XMS_ITS | Encounter Summary ---
Author Name Unknown Organization [place] Address [address] [place] [address]. [place] [address] Care Team Providers Care Brand Ambassador Promotional Model Name Role Phone Laureano Bennett MD Primary Care Provider [phone] Laureano Bennett MD Unavailable [phone] Encounter Details Date Type Department Care [...] Hospital Encounter [facility] Birth[facility] [address] [place] [phone] Laureano Bennett MD [address] [place] [address] [phone] documented as of this encounter Visit Diagnoses Not on filedocumented in this encounter Additional Health Concerns Assessment Noted Time PHQ-9 Depression Total Score: 12 023 9:01 AM CDT documented as of this encounter Care Teams Brand Ambassador Promotional Model Relationship Specialty Start Date End Date Laureano Bennett MD [address] [place] [address] PCP - General Family Medicine 07/07/20 Laureano Bennett MD [address] [place] [address] 26842 Assigned PCP 08/14/22 documented as of this encounter
--- OUTSIDE RECORDS SUMMARY | 2023-08-03 16:14 | XMS_ITS | Encounter Summary ---
Author Name Unknown Organization [place] Address [address] [place] [address] Care Team Providers Care Test Boring Crew Chief Name Role Phone Laureano Bennett MD Primary Care Provider [phone] Laureano Bennett MD Unavailable [phone] Encounter Details Date Type Department Care [...] st Contact Info) Description 08/23/2023 Hospital Encounter [facility] Birthplace [address] [place] [address] Luareano Bennett MD [address] [place] [address] documented as of this encounter Visit Diagnoses Not on filedocumented in this encounter Additional Health Concerns Assessment Noted Time PHQ-9 Depression Total Score: 12 023 9:01 AM CDT documented as of this encounter Care Teams Test Boring Crew Chief Relationship Specialty Start Date End Date Laureano Bennett MD [address] [place] [address] 516602 PCP - General Family Medicine 07/07/20 Laureano Bennett MD [address] [place] [address]139 Assigned PCP 08/14/22 documented as of this encounter
--- OUTSIDE RECORDS SUMMARY | 2023-08-03 16:14 | XMS_ITS | Encounter Summary ---
Author Name Unknown Organization [place] Address [address] [place] [address] Care Team Providers Care Lever Operator Name Role Phone Laureano Bennett MD Primary Care Provider [phone] Laureano Bennett MD Unavailable [phone] Reason for Visit * Reason Onset Date Comments Medication Request 01/14/2023 Request quant ity override Encounter Details Date Type Department Care Team ([facility] st Contact Info) Description 01/14/[address] [phone] Laureano Bennett MD [address] [place] [address] Medication Request (Request quantity override ) [...] tabs aren't enough. Patient would prefer a [employer] message for updates. documented in this encounter Plan of Treatment Upcoming Encounters Date Type Department Care Team (Late st Contact Info) Description 08/23/2023 Hospital Encounter [facility] [address] [place] [address] Laureano Bennett MD [address] [place] [address] 265782 documented as of this encounter Visit Diagnoses Diagnosis Hyperemesis- Primary Persistent vomiting documented in this encounter Additional Health Concerns Assessment Noted Time PHQ-9 Depression Total Score: 12 023 9:01 AM CDT documented as of this encounter Care Teams Lever Operator Relationship Specialty Start Date End Date Laureano Bennett MD [address] [place] [address] PCP - General Family Medicine 07/07/20 Laureano Bennett MD [address] [place] [address] Assigned PCP 08/14/22 documented as of this encounter
--- OUTSIDE RECORDS SUMMARY | 2023-08-03 16:14 | XMS_ITS | Encounter Summary ---
Author Name Unknown Organization [facility] Address [address] [place] [address] Care Team Providers Care Automotive Brake Specialist Name Role Phone Laureano Bennett MD Primary Care Provider [phone] Laureano Bennett MD Unavailable [phone] Reason for Visit * Reason Comments Care Encounter Details Date Type Department Care Team ([facility] st Contact Info) Description 02/10/2023 8:00 AM CDT Office Visit [address] [phone] Laureano Bennett MD [address] [place] [phone] , unspecified gestational age (Primary Dx); Hyperemesis [...] GENITALIA: BUS WNL, no lesions noted VAGINA: [place], normal rugae and discharge normal and physiologic, [...] (around 03/13/2023) for visit. Prasad Bennett MD [address] [address] [email or web address] Office: [phone] Pager: [phone] documented in this encounter Miscellaneous Notes * Result Encounter Note - Laureano Bennett MD - 02/10/2023 8:00 AM CDT Dear Yu, Here is a summary of your recent test results: -All of your labs are essentially normal except some protein in the urine but your blood pressure is good so we will continue to monitor this. For additional lab test information, [email or web address] is a very good reference. Thank you very much for trusting me and [facility]. Have a peaceful day. Healthy regards, Prasad Bennett MD documented in this encounter Plan of Treatment Upcoming Encounters Date Type Department Care Team (Late st Contact Info) Description 08/23/[address] [facility] [address] [place] [phone] Laureano Bennett MD [address] [place] [address] documented as of this encounter Procedures Procedure [...] CDT RH BLOOD BANK SPECIMEN EXPIRATION DATE [id number] 02/09/2023 7:00 PM CDT RH BLOOD BANK Blood BLOOD SPECIMEN / Unknown Venipuncture / Unknown 02/10/2023 9:27 AM CDT 02/10/2023 9:27 AM CDT Laureano Bennett MD LAB - BLOOD BANK NELLY T ORDER RH BLOOD BANK [address] [place] [address] * Urine Culture Aerobic Bacterial (02/10/2023 9:27 AM CDT) Culture <10,000 CFU/mL Urogenital blanca CARLA 02/12/2023 5:44 AM CDT [facility] Urine MID-STREAM URINE SPECIMEN / Unknown Non-blood Collection / Unknown 02/10/2023 9:27 AM CDT 02/10/2023 9:27 AM CDT Laureano Bennett MD LAB - MICRO GENERAL ORDERABLES [facility] Inf. Diseases Diag. Lab [address] [facility], [address] [place] [address] [phone] * Treponema Abs w Reflex to RPR [...] [facility] [address] [facility], Room [address] [phone] * Rubella Antibody IgG (02/10/2023 9:27 AM CDT) Rubella Denisse IgG Instrument Value 2.73 <0.90 Index 02/11/2023 8:29 AM CDT UM SPECIALTY CORE/PROT/END O Rubella Antibody IgG Positive 02/11/2023 8:29 AM CDT SPECIALTY CORE/PROT/END O Comment:Suggests previous ex posure or immunization and probable immunity. Blood BLOOD SPECIMEN / Unknown Venipuncture / Unknown 02/10/2023 9:27 AM CDT 02/10/2023 9:27 AM CDT Laureano Bennett MD LAB - BLOOD ORDERABL ES UM SPECIALTY CORE/PROT/ENDO Specialty Core/Prot/Endo 500 [facility] [address] Building, Room [address] [phone] * HIV Antigen Antibody Combo (02/10/2023 9:27 [...] [facility] [address] [facility], [address] [place] [address], [facility] [phone] * CBC with platelets (02/10/2023 9:27 AM [...] LAB - BLOOD ORDERABL ES RV LABORATORY [facility] [address] [place] [address] S E Lab (no room number, 1st floor of clinic) [place] [address] [phone] * Hepatitis B surface antigen (02/10/2023 9:27 AM CDT) Hepatitis B Surface Antigen Nonreactive Nonreactive 02/10/2023 8:47 PM CDT SPECIALTY CORE/PROT/EN DO Blood BLOOD SPECIMEN / Unknown Venipuncture / Unknown 02/10/2023 9:27 AM CDT 02/10/2023 9:27 AM CDT Laureano Bennett MD LAB - BLOOD ORDERABL ES UM SPECIALTY CORE/PROT/ENDO UM Specialty Core/Prot/Endo 500 [facility], [address] [place] [address], [facility] [phone] * CHLAMYDIA TRACHOMATIS PCR (02/10/2023 8:59 AM CDT) Chlamydia trachomatis Negative Negative 02/11/2023 12:02 PM CDT [facility] Comment:A negative result by building construction supervisor mediated amplification does not preclude the presence of C. trachomatis infection because results are dependent on proper and adequate collection, absence of inhibitors and sufficient rRNA to be detected. Swab CERVIX UTERI STRUCTURE / Unknown Non-blood Collection / Unknown 02/10/2023 8:59 AM CDT 02/10/2023 9:19 AM CDT Laureano Bennett MD LAB - MICRO GENERAL ORDERABLES Performing Organization Address City/[facility]/ZIP Co de Phone Number [facility] Inf. Diseases Diag. Lab [address] [facility], [address] [place] [address], [facility] [phone] * NEISSERIA GONORRHOEA PCR (02/10/2023 8:59 AM CDT) Neisseria gonorrhoeae Negative Negative 02/11/2023 12:02 PM CDT [facility] Comment:Negative for N. gono rrhoeae rRNA by building construction supervisor mediated amplification. A negative result by building construction supervisor mediated amplification does not preclude the presence of C. trachomatis infection because results are dependent on proper and adequate collection, absence of inhibitors and sufficient rRNA to be detected. Swab CERVIX UTERI STRUCTURE / Unknown Non-blood Collection / Unknown 02/10/2023 8:59 AM CDT 02/10/2023 9:19 AM CDT Laureano Bennett MD LAB - MICRO GENERAL ORDERABLES [facility] Inf. Diseases Diag. Lab [address] [facility], [address] [place] [address], [facility] [phone] * (ABNORMAL) Wet prep - Clinic Collect [...] LAB - MICRO GENERAL ORDERABLES RV LABORATORY [facility] [address] [place] [address] S. E. Lab (no room number, 1st floor of clinic) [place] [address], [facility] [phone] * Pap screen reflex to HPV if [...] component of this testing was completed at [facility] 02/14/2023 11:47 AM CDT SPECIALTY LABS Brushing CERVIX UTERI STRUCTURE / Unknown Non-blood Collection / Unknown 02/10/2023 8:29 AM CDT 02/10/2023 9:18 AM CDT Laureano CHO - [facility]E IN[facility] SPECIALTY LABS Specialty Lab [address] [facility], [address] [address], [facility] [phone] * (ABNORMAL) Albumin Random Urine Quantitative with [...] control, and institution of therapy with an vltkqlfocma-uburxwvykd-bazdmr (LUIS) inhibitor (if the patient can tolerate it). ?? Urine URINE SPECIMEN / Unknown Non-blood Collection / Unknown 02/10/2023 7:02 AM CDT 02/10/2023 8:29 AM CDT Laureano Bennett MD LAB - URINE ORDERABL ES [facility] [place] [facility] Lab [address] [facility], [address] [place] [address], [facility] [phone] * Glucose and albumin, OB urine (02/10/2023 7:02 AM CDT) Protein Albumin Urine Negative Negative mg/dL 02/10/2023 8:31 AM CDT RV LABORATORY Glucose Urine Negative Negative mg/dL 02/10/2023 8:31 AM CDT RV LABORATORY Urine URINE SPECIMEN / Unknown Non-blood Collection / Unknown 02/10/2023 7:02 AM CDT 02/10/2023 8:29 AM CDT Laureano Bennett MD LAB - URINE ORDERABL ES Performing Organization Address City/[facility]/ZIP Co de Phone Number RV LABORATORY [facility] [address] [place] [address] Lab (no room number, 1st floor of clinic) [place] [phone], [facility] [phone] documented in this encounter Visit Diagnoses Diagnosis , unspecified gestational age- Primary Hyperemesis Persistent vomiting documented in this encounter Additional Health Concerns Assessment Noted Time PHQ-9 Depression Total Score: 12 023 9:01 AM CDT documented as of this encounter Care Teams Automotive Brake Specialist Relationship Specialty Start Date End Date Laureano Bennett MD [address] [place] [address] PCP - General Family Medicine 07/07/20 Laureano Bennett MD [address] [place] [address] [place] [address] Assigned PCP 08/14/22 documented as of this encounter
--- OUTSIDE RECORDS SUMMARY | 2023-08-03 16:14 | XMS_ITS | Encounter Summary ---
Author Name Unknown Organization [facility] Address [address] [place] [address] Care Team Providers Care Casting House Worker Name Role Phone Renee Bennett MD Primary Care Provider [phone] Renee Bennett MD Unavailable [phone] Reason for Visit * Reason Onset Date Comments Refill Request 01/10/2023 Encounter Details Date Type Department Care Team ([facility] st Contact Info) Description 01/10/2023 MyC Medical Advice [address] [phone] Renee Bennett MD [address] [place] [address] Refill Request Social History Tobacco Use [...] Sent patient mychart message Jaja Stone RN [facility] Triage * Addendum Note - Renee Bennett MD - 01/10/2023 10:51 AM CDTAddended by: RENEE BENNETT on: 01/13/2023 01:48 PM Modules accepted: Orders documented in this encounter Plan of Treatment Upcoming Encounters Date Type Department Care Team (Late st Contact Info) Description 08/23/[address] [facility] [address] [place] [address] Renee Bennett MD [address] [place] [address] documented as of this encounter Visit Diagnoses Diagnosis Hyperemesis Persistent vomiting documented in this encounter Additional Health Concerns Assessment Noted Time PHQ-9 Depression Total Score: 12 023 9:01 AM CDT documented as of this encounter Care Teams Casting House Worker Relationship Specialty Start Date End Date Renee Bennett MD [address] [place] [address] PCP - General Family Medicine 07/07/20 Renee Bennett MD [address] [place] [address] Assigned PCP 08/14/22 documented as of this encounter
--- OUTSIDE RECORDS SUMMARY | 2023-08-03 16:14 | XMS_ITS | Encounter Summary ---
Author Name Unknown Organization [place] Address [address] [place] [address]. [place] [address] Care Team Providers Care Jira Administrator Name Role Phone Laureano Bennett MD Primary Care Provider [phone] Laureano Bennett MD Unavailable Encounter Details Date [...] st Contact Info) Description 08/23/2023 Hospital Encounter [facility] [address] [place] [address] Laureano Bennett MD [address] [place] [phone] documented as of this encounter Visit Diagnoses Not on filedocumented in this encounter Additional Health Concerns Assessment Noted Time PHQ-9 Depression Total Score: 12 023 9:01 AM CDT documented as of this encounter Care Teams Jira Administrator Relationship Specialty Start Date End Date Laureano Bennett MD [address] [place] [address] PCP - General Family Medicine 07/07/20 Laureano Bennett MD [address] [place] [address] Assigned PCP 08/14/22 documented as of this encounter
--- OUTSIDE RECORDS SUMMARY | 2023-08-03 16:14 | XMS_ITS | Encounter Summary ---
Author Name Unknown Organization [facility] Address [address] [place] [address] Care Team Providers Care Air And Hydronic Balancing Technician Name Role Phone Laureano Bennett MD Primary Care Provider Laureano Bennett MD Unavailable [phone] Reason for Visit * Diagnostic Imaging Ultrasound (Routine) - Pending Review Specialty Diagnoses / Procedures Referred By Contac t Referred To Contact Radiology. Diagnoses Encounter for supervision of other normal in second trimester Procedures US OB > 14 Weeks Laureano Bennett MD [address] [place] [address] Referral ID Status Reason Start Date Expiration Date V isits Requested Visits Authorized [id number] Pending Review 03/10/2023 03/09/2024 1 1 Encounter Details Date Type Department Care Team (Late st Contact Info) Description 04/11/2023 2:40 PM CDT Ancillary Procedure [address] [address] Laureano Bennett MD [address] [place], [place] [address] Encounter for supervision of other normal in [...] very much for trusting me and [facility]. Have a peaceful day. Healthy regards, Prasad Bennett MD documented in this encounter Plan of Treatment Upcoming Encounters Date Type Department Care Team (Late st Contact Info) Description 08/23/2023 Hospital Encounter [facility]place [address] [place] [phone] Laureano Bennett MD [address] [place] [address] documented as of this encounter Procedures Procedure [...] from the original result was not included. [facility] ULTRASOUND - OB > 14 Weeks [...] Lynne Rubi, DO ?? Obstetrics and Gynecology [facility] Laureano Bennett MD [facility] ORDERABLES documented in this encounter Visit Diagnoses Diagnosis Encounter for supervision of other normal in second trimester documented in this encounter Additional Health Concerns Assessment Noted Time PHQ-9 Depression Total Score: 12 023 9:01 AM CDT documented as of this encounter Care Teams Air And Hydronic Balancing Technician Relationship Specialty Start Date End Date Laureano Bennett MD [address] [place] [phone] PCP - General Family Medicine 07/07/20 Laureano Bennett MD [address] [place] [address] Assigned PCP 08/14/22 documented as of this encounter
--- OUTSIDE RECORDS SUMMARY | 2023-08-03 16:14 | XMS_ITS | Encounter Summary ---
Author Name Unknown Organization [facility] Address [address] [place] [address] Care Team Providers Care Cocoa Butter Filter Operator Name Role Phone Renee Casillas MD Primary Care Provider [phone] Renee Casillas MD Unavailable [phone] Reason for Visit * Reason Comments Care Encounter Details Date Type Department Care Team (Late st Contact Info) Description 05/17/2023 9:20 AM INSURANCE BROKER Office Visit [address] [phone] Renee Casillas MD [address] [place] [address] Encounter for supervision of other normal [...] Comments Blood Pressure 118/60 05/17/2023 9:13 AM INSURANCE BROKER Pulse 96 05/17/2023 9:13 AM INSURANCE BROKER Temperature 36.1 ??C (96.9 ??F) 05/17/2023 9:13 AM CS T Respiratory Rate 16 05/17/2023 9:13 AM INSURANCE BROKER Oxygen Saturation 98% 05/17/2023 9:13 AM INSURANCE BROKER Inhaled Oxygen Concentration - - Weight 78.5 kg (173 lb) 05/17/2023 9:13 AM INSURANCE BROKER Height 174 cm (5' 8.5) 05/17/2023 9:13 AM INSURANCE BROKER Body Mass Index 25.92 05/17/2023 9:13 AM INSURANCE BROKER documented in this encounter Progress Notes * Renee Casillas MD - 05/17/2023 9:20 AM CST S:Yu [...] intake, and treatment affect the concentration of 97-eczajul-Bahuckx D. Values may decrease during winter months [...] - failed will check 3 hour screen RANCE BROKER documented in this encounter Miscellaneous Notes * Result Encounter Note - Renee Casillas MD - 05/17/2023 9:20 AM INSURANCE BROKER Dear Yu, Here is a summary of [...] you very much for trusting me and [facility]. Have a peaceful day. Healthy regards, Prasad Casillas MD RANCE BROKER * Result Encounter Note - Renee Casillas MD - 05/17/2023 9:20 AM INSURANCE BROKER Note to Staff: please call the patient to review recommendations of recent result note as the patient did not check their MyChart result note message yet. RANCE BROKER * Addendum Note - Renee Casillas MD - 05/17/2023 9:20 AM CSTAddended by: RENEE CASILLAS on: 05/18/2023 11:44 PM Modules accepted: Orders RANCE BROKER documented in this encounter Plan of Treatment Upcoming Encounters Date Type Department Care Team (Late st Contact Info) Description 08/23/2023 Hospital Encounter [facility]place [address] [place] [phone] Renee Casillas MD [address] [place] [address] documented as of this encounter Procedures Procedure Name Priority Date/Time Associated Diagnosis Comments GLUCOSE ALBUMIN OB URINE Routine 05/17/2023 1:19 PM INSURANCE BROKER Encounter for supervision of other normal in second trimester GLUCOSE TOLERANCE GEST SCREEN 1 HOUR Routine 05/17/2023 10:39 AM INSURANCE BROKER Encounter for supervision of other normal in second trimester VITAMIN D DEFICIENCY SCREENING Routine 05/17/2023 10:29 AM INSURANCE BROKER Encounter for supervision of other normal in second trimester TSH WITH FREE T4 REFLEX Routine 05/17/2023 10:29 AM INSURANCE BROKER Encounter for supervision of other normal in second trimester OB HEMOGLOBIN Routine 05/17/2023 10:29 AM INSURANCE BROKER Encounter for supervision of other normal in second trimester FERRITIN Routine 05/17/2023 10:29 AM INSURANCE BROKER Encounter for supervision of other normal in second trimester documented in this encounter Results * (ABNORMAL) Glucose and albumin, OB urine (05/17/2023 1:19 PM INSURANCE BROKER) Pathologist [facility] Protein Albumin Urine Trace(A) Negative mg/dL 05/17/2023 1:22 PM INSURANCE BROKER RV LAB[facility]ATORY Glucose Urine Negative Negative mg/dL 05/17/2023 1:22 PM INSURANCE BROKER [facility] Urine MID-STREAM URINE SPECIMEN / Unknown Non-blood Collection / Unknown 05/17/2023 1:19 PM INSURANCE BROKER 05/17/2023 1:19 PM INSURANCE BROKER Renee Casillas MD LAB - URINE ORDERABL ES Performing Organization Address [facility] de Phone Number [address] Lab (no room number, 1st floor of [facility]) [place] [address], [facility] [phone] * (ABNORMAL) Glucose tolerance gest screen 1 hour (05/17/2023 10:39 AM INSURANCE BROKER) [facility] Glu Gest Screen 1hr 50g 142(H) 70 - 129 mg/dL 05/17/2023 10:56 AM INSURANCE BROKER [facility] Blood BLOOD SPECIMEN / Unknown Venipuncture / Unknown 05/17/2023 10:39 AM INSURANCE BROKER 05/17/2023 10:39 AM INSURANCE BROKER Narrative [facility] - 05/17/2023 10:56 AM INSURANCE BROKER This is a screening test for Gestational Diabetes Mellitus. If results are 130 mg/dL or greater, a Standard 100 gram Gestational ??3 hour Glucose Tolerance should be performed. Renee Casillas MD LAB - BLOOD ORDERABL ES Performing Organization Address [facility] Co de Phone Number [address] Lab (no room number, 1st floor of [facility]) [place] [address], [facility] [phone] * Ferritin (05/17/2023 10:29 AM INSURANCE BROKER) Ferritin 17 6 - 175 ng/mL 05/17/2023 8:27 PM INSURANCE BROKER [facility] Blood BLOOD SPECIMEN / Unknown Venipuncture / Unknown 05/17/2023 10:29 AM INSURANCE BROKER 05/17/2023 10:29 AM INSURANCE BROKER Renee Casillas MD LAB - BLOOD ORDERABL ES [facility] [place] [facility] [address] [facility], [address] [place] [address], [facility] [phone] * OB hemoglobin (05/17/2023 10:29 AM INSURANCE BROKER) Hemoglobin 12.2 11.7 - 15.7 g/dL 05/17/2023 10:39 AM INSURANCE BROKER [facility] Blood BLOOD SPECIMEN / Unknown Venipuncture / Unknown 05/17/2023 10:29 AM INSURANCE BROKER 05/17/2023 10:29 AM INSURANCE BROKER Renee Casillas MD LAB - BLOOD ORDERABL ES RV LABORATORY [facility] - [address] (no room number, 1st floor of clinic) [place] [phone], [facility] [phone] * TSH with free T4 reflex (05/17/2023 10:29 AM INSURANCE BROKER) TSH 1.00 0.30 - 4.20 uIU/mL 05/17/2023 8:59 PM INSURANCE BROKER [facility] Blood BLOOD SPECIMEN / Unknown Venipuncture / Unknown 05/17/2023 10:29 AM INSURANCE BROKER 05/17/2023 10:29 AM INSURANCE BROKER Renee Casillas MD LAB - BLOOD ORDERABL ES [facility] [place] [facility] [address] [facility] [address] Building, [address] [place] [address], [place] [phone] * Vitamin D Deficiency (05/17/2023 10:29 AM INSURANCE BROKER) Vitamin D, Total (25-Hydroxy) 45 20 - 50 ng/mL 05/17/2023 8:59 PM INSURANCE BROKER [facility] Comment:optimum levels Blood BLOOD SPECIMEN / Unknown Venipuncture / Unknown 05/17/2023 10:29 AM INSURANCE BROKER 05/17/2023 10:29 AM INSURANCE BROKER Narrative [facility] - 05/17/2023 8:59 PM INSURANCE BROKER Season, race, dietary intake, and treatment affect the concentration of 34-klxhhok-Xevtfqc D. Values may decrease during winter months and increase during summer months. Vitamin D determination is routinely performed by an immunoassay specific for 25 hydroxyvitamin D3. ??If an individual is on vitamin D2(ergocalciferol) supplementation, please specify 25 OH vitamin D2 and D3 level determination by LCMSMS test VITD23. Renee Casillas MD LAB - BLOOD ORDERABL ES [facility] [place] [facility] [address] [facility], [address] [place] [address], [facility] [phone] documented in this encounter Visit Diagnoses Diagnosis Encounter for supervision of other normal in second trimester- Primary Elevated glucose Other abnormal glucose documented in this encounter Additional Health Concerns Assessment Noted Time PHQ-9 Depression Total Score: 0 05/17/20 23 9:06 AM INSURANCE BROKER documented as of this encounter Care Teams Cocoa Butter Filter Operator Relationship Specialty Start Date End Date Renee Casillas MD [address] [place] [address] PCP - General Family Medicine 07/07/20 Renee Casillas MD [address] [place] [address] Assigned PCP 08/14/22 documented as of this encounter
--- OUTSIDE RECORDS SUMMARY | 2023-08-03 16:15 | XMS_ITS | Encounter Summary ---
Author Name Unknown Organization [place] Address [address] [place] [address] Care Team Providers Care Truck Caterer Name Role Phone Laureano Bennett MD Primary Care Provider [phone] Laureano Bennett MD Unavailable [phone] Encounter Details Date Type Department Care [...] st Contact Info) Description 08/23/2023 Hospital Encounter [facility]place [address] [place] [phone] Laureano Bennett MD [address] [place] [address] documented as of this encounter Visit Diagnoses Not on filedocumented in this encounter Additional Health Concerns Assessment Noted Time PHQ-9 Depression Total Score: 12 023 9:01 AM CDT documented as of this encounter Care Teams Truck Caterer Relationship Specialty Start Date End Date Laureano Bennett MD [address] [place] [phone] PCP - General Family Medicine 07/07/20 Laureano Bennett MD [address] [place] [address] Assigned PCP 08/14/22 documented as of this encounter
--- OUTSIDE RECORDS SUMMARY | 2023-08-03 16:15 | XMS_ITS | Encounter Summary ---
Author Name Unknown Organization [place] Address [address] [place] [address] Care Team Providers Care Customer Logistics Manager Name Role Phone Laureano Bennett MD Primary Care Provider [phone] Laureano Bennett MD Unavailable [phone] Reason for Visit * Reason Onset Date Comments Results 01/06/2023 Encounter Details Date Type Department Care Team ([facility] st Contact Info) Description 01/06/2023 MyC Medical Advice [address] [phone] Laureano Bennett MD [address] [place] [address] Results Social History Tobacco Use Types [...] to review and advise. Violette Hamilton RN [place] Triage documented in this encounter Plan of Treatment Upcoming Encounters Date Type Department Care Team (Late st Contact Info) Description 08/23/2023 Hospital Encounter [facility] [address] [place] [address] Laureano Bennett MD [address] [place] [address] [phone] documented as of this encounter Visit Diagnoses Not on filedocumented in this encounter Additional Health Concerns Assessment Noted Time PHQ-9 Depression Total Score: 12 023 9:01 AM CDT documented as of this encounter Care Teams Customer Logistics Manager Relationship Specialty Start Date End Date Laureano Bennett MD [address] [place] [address] 41567 PCP - General Family Medicine 07/07/20 Laureano Bennett MD [address] [place] [address] 30169 Assigned PCP 08/14/22 documented as of this encounter
--- OUTSIDE RECORDS SUMMARY | 2023-08-03 16:15 | XMS_ITS | Encounter Summary ---
Author Name Unknown Organization [place] Address [address] [place] [address] Care Team Providers Care Corrective Therapy Aide Teacher Name Role Phone Laureano Bennett MD Primary Care Provider [phone] Laureano Bennett MD Unavailable [phone] Reason for Visit * Reason Comments Care Psoriasis Scalp Encounter Details Date Type Department Care Team ([facility] st Contact Info) Description 01/04/2023 9:20 AM CDT Office Visit [address] [phone] Laureaon Bennett MD [address] [place] [address] test positive (Primary Dx); Hyperemesis; Dermatitis [...] 12 weeks gestation. - HCG Qual, Urine ([id number]) Hyperemesis Symptoms present and can try below [...] (around 02/04/2023) for visit. Prasad Bennett MD [facility] [address] [place] [address] [employer] Office: [phone] Joi Nicholas is a 27 year old, [...] Urine Negative Negative mg/dL HCG Qual, Urine ([id number]) Status: Abnormal Result Value Ref Range hCG [...] you very much for trusting me and [facility]. Have a peaceful day. Healthy regards, Prasad Bennett MD documented in this encounter Plan of Treatment Upcoming Encounters Date Type Department Care Team (Late st Contact Info) Description 08/23/2023 Hospital Encounter [facility] Birthplace [address] [place] [phone] Laureano Bennett MD [address] [place] [address] documented as of this encounter Procedures Procedure Name Priority Date/Time Associated Diagnosis Comments GLUCOSE ALBUMIN OB URINE Routine 01/04/2023 9:30 AM CDT HCG QUALITATIVE URINE Add-On 01/04/2023 9:30 AM CDT test positive documented in this encounter Results * (ABNORMAL) HCG Qual, Urine ([id number]) (01/04/2023 9:30 AM CDT) hCG Urine Qualitative Positive( A) Negative CARLA 01/04/2023 10:31 AM CDT [facility] Comment:This test is for scr eening purposes. Results should be interpreted along with the clinical picture. Confirmation testing is available if warranted by ordering [id number], HCG Quantitative . Urine MID-STREAM URINE SPECIMEN / Unknown Non-blood Collection / Unknown 01/04/2023 9:30 AM CDT 01/04/2023 9:30 AM CDT Laureano Bennett MD LAB - URINE ORDERABL ES LABORAT[facility] [address] [place] [address] S. E. Lab (no room number, 1st floor of clinic) [place] [address], [facility] [phone] * (ABNORMAL) Glucose and albumin, OB urine (01/04/2023 9:30 AM CDT) Protein Albumin Urine 100(A) Negative mg/dL 01/04/2023 9:43 AM CDT [facility] Glucose Urine Negative Negative mg/dL 01/04/2023 9:43 AM CDT [facility] Urine MID-STREAM URINE SPECIMEN / Unknown Non-blood Collection / Unknown 01/04/2023 9:30 AM CDT 01/04/2023 9:30 AM CDT Laureano Bennett MD LAB - URINE ORDERABL ES LABORATORY [facility] [address] [place] [address] S. E. Lab (no room number, 1st floor of clinic) [place] [address], [facility] [phone] documented in this encounter Visit Diagnoses Diagnosis test positive- Primary examination or test, positive result Hyperemesis Persistent vomiting Dermatitis Contact dermatitis and other eczema, due to unspecified cause documented in this encounter Additional Health Concerns Assessment Noted Time PHQ-9 Depression Total Score: 12 023 9:01 AM CDT documented as of this encounter Care Teams Corrective Therapy Aide Teacher Relationship Specialty Start Date End Date Laureano Bennett MD [address] [place] [address] PCP - General Family Medicine 07/07/20 Laureano Bennett MD [address] [place] [address] Assigned PCP 08/14/22 documented as of this encounter
--- OUTSIDE RECORDS SUMMARY | 2023-08-03 16:15 | XMS_ITS | Encounter Summary ---
Author Name Unknown Organization [place] Address [address] [place] [address] Care Team Providers Care Director Of Math Name Role Phone Laureano Bennett MD Primary Care Provider [phone] Laureano Bennett MD Unavailable [phone] Unavailable [phone] Encounter Details Date Type Department Care Team (Late Contact Info) Description 01/05/2023 MyC Medical Advice [address] [phone] Laureano Bennett MD [address] [place] [address] Social History Tobacco Use Types Packs/Day [...] (Late Contact Info) Description 08/23/2023 Hospital Encounter [facility] Birthplace [address] [place] [phone] Laureano Bennett MD [address] [place] [address] [phone] documented as of this encounter Visit Diagnoses Not on filedocumented in this encounter Additional Health Concerns Assessment Noted Time PHQ-9 Depression Total Score: 12 023 9:01 AM CDT documented as of this encounter Care Teams Director Of Math Relationship Specialty Start Date End Date Laureano Bennett MD [address] [place] [address] 599512 PCP - General Family Medicine 07/07/20 Laureano Bennett MD [address] [place] [address] [id number] Assigned PCP 08/14/[address] [place] [address] [place] [address] Math Coach Dietitian, Registered 06/14/23 documented as of this encounter
--- OUTSIDE RECORDS SUMMARY | 2023-08-03 16:15 | XMS_ITS | Encounter Summary ---
Author Name Unknown [facility] Address [address] [place] [address] Care Team Providers Care Airborne Weapons Technical Manager Name Role Phone Laureano Bennett MD Primary Care Provider [phone] Laureano Bennett MD Unavailable [phone] Laureano Bennett MD Unavailable [phone] Unavailable [phone] Encounter Details Date Type Department Care Team (Late st Contact Info) Description 09/19/2020 MyC Medical Advice [address] [phone] Rikki Auguste RN Social History Tobacco Use [...] Contact Info) Description 08/23/2023 Hospital Encounter [facility] Birthplace [address] [place] [phone] Laureano Bennett MD [address] [place] [address] documented as of this encounter Visit Diagnoses Not on filedocumented in this encounter Care Teams Airborne Weapons Technical Manager Relationship Specialty Start Date End Date Laureano Bennett MD [address] [place] [address] PCP - General Family Medicine 07/07/20 [place] [address] [place] [address] Assigned PCP 06/12/20 06/04/22 Laureano Bennett MD [address] [place] [address] [id number] Assigned PCP 08/14/[address] [place] [address] [place] [address] Production Material Handler Dietitian, Registered 06/14/23 documented as of this encounter
--- OUTSIDE RECORDS SUMMARY | 2023-08-03 16:15 | XMS_ITS | Encounter Summary ---
Author Name Unknown Organization [place] Address [address] [place] [address] Care Team Providers Care Funding Specialist Name Role Phone Laureano Bennett MD Primary Care Provider [phone] Laureano Bennett MD Unavailable [phone] Encounter Details Date Type Department Care [...] Info) Description 08/23/[address] [facility] Birthplace [address] [place] [phone] Laureano Bennett MD [address] [place] [address] documented as of this encounter Visit Diagnoses Not on filedocumented in this encounter Additional Health Concerns Assessment Noted Time PHQ-9 Depression Total Score: 12 023 9:01 AM CDT documented as of this encounter Care Teams Funding Specialist Relationship Specialty Start Date End Date Laureano Bennett MD [address] [place] [address] [phone] PCP - General Family Medicine 07/07/20 Laureano Bennett MD [address] [place] [address] Assigned PCP 08/14/22 documented as of this encounter
--- OUTSIDE RECORDS SUMMARY | 2023-08-03 16:15 | XMS_ITS | Encounter Summary ---
Author Name Unknown [facility] Address [address] [place] [address]889 Care Team Providers Care Supervisor Order Takers Name Role Phone Laureano Bennett MD Primary Care Provider [phone] Laureano Bennett MD Unavailable [phone] Encounter Details Date Type Department Care Team (Late st Contact Info) Description 01/05/2023 MyC Medical Advice [address] [phone] Laureano Bennett MD [address] [place] [address] Social History Tobacco Use Types Packs/Day [...] st Contact Info) Description 08/23/2023 Hospital Encounter [facility] Birthplace [address] [place] [address] Laureano Bennett MD [address] [place] [address] [phone] documented as of this encounter Visit Diagnoses Not on filedocumented in this encounter Additional Health Concerns Assessment Noted Time PHQ-9 Depression Total Score: 12 023 9:01 AM CDT documented as of this encounter Care Teams Supervisor Order Takers Relationship Specialty Start Date End Date Laureano Bennett MD [address] [place] [address] [id number] PCP - General Family Medicine 07/07/20 Laureano Bennett MD [address] [place] [address] 061142 Assigned PCP 08/14/22 documented as of this encounter
--- OUTSIDE RECORDS SUMMARY | 2023-08-03 16:15 | XMS_ITS | Encounter Summary ---
Author Name Unknown Organization [place] Address [address] [place] [address] Care Team Providers Care Surveyor Helper Rod Name Role Phone Laureano Bennett MD Primary Care Provider [phone] Laureano Bennett MD Unavailable [phone] Unavailable [phone] Reason for Visit * Reason Onset Date Comments Prior Auth - Medication 01/10/2023 Ondanset topher 4MG Dispersible Tablets-pa approved Encounter Details Date Type Department Care Team (Late st Contact Info) Description 01/10/[address] [phone] Laureano Bennett MD [address] [place] [address] Prior Auth - Medication (Ondansetron 4MG [...] Date: 01/14/2024 Approved Dose/Quantity: 90/30 Reference #: [id number] Insurance Company: [employer] - Expected CoPay: CoPay Card Available: Financial Assistance Needed: Which Pharmacy is filling the prescription: [id number] - [place] [id number], [employer] - [address] AT [place] [address] Pharmacy Notified: Yes Patient Notified: Yes * Telephone Encounter - Sherri Houston - 01/13/2023 10:27 AM CDT Images from the original note were not included. PA Initiation Medication: ONDANSETRON 4 MG PO TBDP Insurance Company: [employer] - Pharmacy Filling the Rx: [id number] [place] - [address] AT [place] [address] Filling Pharmacy Filling Pharmacy Fax: Start Date: [...] different than what is on RX) Name: Amitree Phone: [phone] * Telephone Encounter - Lucia Samano - 01/12/2023 12:51 PM CDT Received a Formulary Exception form. Now in Yellow PA folder at front of house manager for [place] * Telephone Encounter - Hemant Carias - 01/10/2023 10:02 AM CDT Prior Authorization Retail Medication Request Medication/Dose: Saji Prior Authorization for Ondansetron 4MG Dispersible Tablets ICD code (if different than what is on RX): Previously Tried and Failed: Rationale: Insurance Name: Insurance ID: [id number] Pharmacy Information (if different than what is on RX) Name: [facility] Phone: [phone] * Telephone Encounter - Jaycee Padron - 01/10/2023 8:52 AM CDT Forms/Letter Request Type of form/letter: Saji Prior Authorization for Ondansetron 4MG Dispersible Tablets Have you been seen for this request: N/A Do we have the form/letter: Yes: [employer] Yellow PA Folder Who is the form from? [facility] (if other please explain) Where did/will the form come from? form was faxed in documented in this encounter Plan of Treatment Upcoming Encounters Date Type Department Care Team (Late st Contact Info) Description 08/23/2023 Hospital Encounter [facility] [address] [facility] [address] Laureano Bennett MD [address] [place] [address] [phone] documented as of this encounter Visit Diagnoses Not on filedocumented in this encounter Additional Health Concerns Assessment Noted Time PHQ-9 Depression Total Score: 12 023 9:01 AM CDT documented as of this encounter Care Teams Surveyor Helper Rod Relationship Specialty Start Date End Date Laureano Bennett MD [address] [place] [address]119 PCP - General Family Medicine 07/07/20 Laureano Bennett MD [address] [place] [address]308 Assigned PCP 08/14/[address] [place] [address] [place] [address] Insurance Producer Dietitian, Registered 06/14/23 documented as of this encounter
--- OUTSIDE RECORDS SUMMARY | 2023-08-03 16:15 | XMS_ITS | Encounter Summary ---
Author Name Unknown Organization [place] Address [address] [place] [address] Care Team Providers Care Coastal Tug Mate Name Role Phone Laureano Bennett MD Primary Care Provider [phone] Laureano Bennett MD Unavailable [phone] Reason for Referral * Diagnostic Imaging Ultrasound (Routine) - Pending Review Specialty Diagnoses / Procedures Referred By Contac t Referred To Contact Radiology. Diagnoses test positive Procedures US OB < 14 Weeks [place] [address] [place] [address] Referral ID Status Reason Start Date Expiration Date V isits Requested Visits Authorized Pending Review 12/23/2022 12/23/2023 1 1 Reason for Visit * Diagnostic Imaging Ultrasound (Routine) - Pending Review Specialty Diagnoses / Procedures Referred By Contac t Referred To Contact Radiology. Diagnoses test positive Procedures US OB < 14 Weeks Single Transabdominal Laureano Bennett MD [address] [place] [address] Referral ID Status Reason Start Date Expiration Date V isits Requested Visits Authorized Pending Review 12/23/2022 12/23/2023 1 1 Encounter Details Date Type Department Care Team (Late st Contact Info) Description 01/05/2023 2:42 PM CDT - 01/05/2023 11:59 PM CDT Hospital Encounter [facility] [address] [facility] [address] [place] [phone] [place] [address] [place] [address] [phone] test positive Discharge Disposition: Home or Self [...] next visit. For additional lab test information, [email or web address] is a very good reference. Thank you very much for trusting me and [facility]. Have a peaceful day. Healthy regards, Prasad Bennett MD documented in this encounter Plan of Treatment Upcoming Encounters Date Type Department Care Team (Late st Contact Info) Description 08/23/2023 Hospital Encounter [facility] Birthplace [address] [place] [phone] Laureano Bennett MD [address] [place] [address] documented as of this encounter Procedures Procedure [...] early to accurately determine placental site. YULISSA HURTADO MD SYSTEM ID: [id number] Narrative 01/06/2023 7:55 AM CDT US OB [...] pelvis. No subchorionic hemorrhage. Procedure Note Yulissa Hurtado MD - 01/06/2023 US OB < 14 [...] early to accurately determine placental site. YULISSA HURTADO MD SYSTEM ID: [id number] Laureano Bennett MD [facility] [place] documented in this encounter Visit Diagnoses Diagnosis test positive examination or test, positive result documented in this encounter Additional Health Concerns Assessment Noted Time PHQ-9 Depression Total Score: 12 01/04/2 023 9:01 AM CDT documented as of this encounter Care Teams Coastal Tug Mate Relationship Specialty Start Date End Date Laureano Bennett MD [address] [place] [address] PCP - General Family Medicine 07/07/20 Laureano Bennett MD [address] [place] [address] Assigned PCP 08/14/22 documented as of this encounter
--- OUTSIDE RECORDS SUMMARY | 2023-08-03 16:15 | XMS_ITS | Encounter Summary ---
Author Name Unknown [facility] Address [address] [place] [address] Care Team Providers Care Lodging Manager Name Role Phone Laureano Bennett MD Primary Care Provider Laureano Bennett MD Unavailable [phone] Reason for Visit * Reason Onset Date Comments No Show Anxiety No Show 09/20/2022 Encounter Details Date Type Department Care Team (Late Contact Info) Description 09/20/2022 11:00 AM CDT Office Visit [address] [phone] Yaquelin Fulton, [place] [address] [address] No-show for appointment (Primary Dx) [...] Upcoming Encounters Date Type Department Care Team ([facility] Contact Info) Description 08/23/[address] [facility] Birthplace [address] [place] [address] Laureano Bennett MD [address] [place] [address] [phone] documented as of this encounter Visit Diagnoses Diagnosis No-show for appointment- Primary documented in this encounter Care Teams Lodging Manager Relationship Specialty Start Date End Date Laureano Bennett MD [address] [place] [address] PCP - General Family Medicine 07/07/20 Laureano Bennett MD [address] [place] [address] Assigned PCP 08/14/22 documented as of this encounter
--- OUTSIDE RECORDS SUMMARY | 2023-08-03 16:15 | XMS_ITS ---
Author Name Unknown Organization [place] Address [address] [place] [address] Care Team Providers Care Motion Designer Name Role Phone Laureano Bennett MD Primary Care Provider Laureano Bennett MD Unavailable [phone] Unavailable [phone] Diabetes Self-Management Education Status:Identified (Enrolling) Start date:06/14/2023 Continued Care and Services Coordination
--- OUTSIDE RECORDS SUMMARY | 2023-08-03 16:15 | XMS_ITS | Encounter Summary ---
Author Name Unknown Organization [place] Address [address] [place] [address] Care Team Providers Care Scientific Director Name Role Phone Laureano Bennett MD Primary Care Provider [phone] Laureano Bennett MD Unavailable [phone] Reason for Referral * Diagnostic Imaging Ultrasound (Routine) - Pending Review Specialty Diagnoses / Procedures Referred By Contac t Referred To Contact Radiology. Diagnoses test positive Procedures US OB < 14 Weeks Single Transabdominal Laureano Bennett MD [address] [place] [address] Referral ID Status Reason Start Date Expiration Date V isits Requested Visits Authorized [id number] Pending Review 12/23/2022 12/23/2023 1 1 Encounter Details Date Type Department Care Team (Late st Contact Info) Description 12/22/2022 MyC Medical Advice [address] [phone] Laureano Bennett MD [address] [place] [address] test positive (Primary Dx) Social History [...] CDT Appt type changed to first OB. Leixe Gloria CMA * Telephone Encounter - Laureano [...] Hospital Encounter [facility] Birthplace [address] [place] [address] Laureano Bennett MD [address] [place] [address] documented as of this encounter Results * [...] placental site. YULISSA SKAGGS MD SYSTEM ID: [id number] Narrative 01/06/2023 7:55 AM CDT US OB [...] placental site. YULISSA SKAGGS MD SYSTEM ID: [id number] Laureano Bennett MD [facility] US ORDERABLES documented in this encounter Visit Diagnoses Diagnosis test positive- Primary examination or test, positive result test positive examination or test, positive result documented in this encounter Care Teams Scientific Director Relationship Specialty [place] [address] [place] [address] PCP - General Family Medicine 07/07/20 [place] [address] [place] [address] LORRI MIRANDA [address] Assigned PCP 08/14/22 documented as of this encounter
--- OUTSIDE RECORDS SUMMARY | 2023-08-03 16:15 | XMS_ITS | Clinical Summary ---
Author Name Unknown Organization [employer] [facility] Address [place], [place] [address] Care Team Providers Care Senior Search Marketing Analyst Name Role Phone Donna Rae LOCO Primary Care Provider [phone] Allergies No known active allergies Medications Medication Sig Dispensed Refills Start Date End Date Status Zqnowhbg-Kj-Gab-Fe-FA ( VITAMIN) tab tablet Take 1 tablet by mouth once daily. 0 06/01/2018 Active Nifim-9-SDP-EPA-Fish Oil (FISH OIL) 1,000 mg (120 mg-180 mg) cap Take by mouth. 0 06/01/2018 Active Active Problems Patient Care Coordination No te Formatting of this note migh t be different from the original. Transfer of care at 21.3 weeks from [facility] transfer records Problem Noted Date Diagnosed Date [...] oz) M Vag N Candis ng Delivery Location:[place], [place] Comments:SROM, pit aug mentation, 7 hours [...] age to complete this topic Care Teams Senior Search Marketing Analyst Relationship Specialty Start Date End Date Donna Rae CNM [address] [place] [address] PCP - General Certified Nurse Boat Worker 10/29/19
--- OUTSIDE RECORDS SUMMARY | 2023-08-03 16:16 | XMS_ITS | Data Portability ---
Author Name Unknown Address [address] [place] [address] Phone [phone] Organization [facility], autoContract Address [address] [place] [phone] Assessment Encounter Date Assessment Date Assessment LastModified [...] Lab CBC w/ diff 2021 022 LAURA [facility], [address] [place], [address], 18:37:13 streptococc us group B Ag, vaginal 2021 022 eurban [facility], [address] [place], [address], 23:17:35 CBC w/ diff 2020 021 [facility], [address] [place], [address], 03/02/202 2 13:35:32 treponema pallidum Ab, serum [address] Lab, [address] [place], [address], 2 13:35:32 blood group antibody screen, serum or plasma [address] [facility], [address] [place], [address], 1 12:26:54 abo group + rh type, blood 2020 [facility], [address] [place], [address], 1 13:42:45 CBC w/ diff 2020 021 [facility], [address] [place], [address], 1 13:42:46 urinalysis, reflex culture 2020 021 [facility], [address] [place], [address], 1 13:42:46 CBC w/ diff 2019 020 [facility], [address] [place], [address], 0 13:26:49 streptococc us group B Ag, vaginal 2019 020 [facility], [address] [place], [address], 0 10:35:54 HIV (1+2) Ab screen, serum 2019 020 [facility], [address] [place], [address], 0 15:03:27 blood group antibody screen, serum or plasma 2019 [facility], [address] [place], [address], 0 15:01:51 abo group + rh type, blood 2019 [facility], [address] [place], [address], 0 18:13:11 HBsAg (hepatitis B surface Ag), serum 2019 [facility], [address], [place], [address], 0 15:02:23 hepatitis C Ab, serum 2019 [facility], [address], [place], [address], 0 15:02:34 CBC w/ diff 2019 [facility], [address], [place], [address], 0 15:07:04 CT + NG DNA, PCR, urine 2019 [facility], [address], [place], [address], 0 15:02:57 treponema pallidum Ab, serum 2019 [facility], [address], [place], [address], 0 15:03:07 urinalysis, reflex culture 2019 [facility], [address] [place], [address], 0 12:32:36 rubella Ab, serum 2019 020 [facility], [address], [place], [address], 0 18:12:46 pH, amniotic fluid 2018 019 Not available 9 14:48:59 hepatitis C Ab, serum 2018 019 [facility], [address] [place], [address], 9 18:40:12 CT + NG DNA, PCR, urine [address] Lab, [address] [place], [address], 9 11:18:55 CBC w/ diff [address] Lab, [address] [place], [address], 9 11:18:54 streptococc us group B, culture, genital 2018 [facility], [address] [place], [address], 9 11:03:35 treponema pallidum Ab, serum [address] Lab, [address] [place], [address], 9 11:18:54 type + screen, blood 2018 [facility], [address] [place], [address], 9 08:30:37 Referral None recorded. Procedures None recorded. Surgeries None recorded. Imaging US, obstetric, 1st trimester - Unsure of LMP 2020 021 [facility], [address] [place], [address], 1 14:22:43 US, obstetric, 2nd trimester - 20 week anatomy scan 2019 020 radha [facility], [address] [place], [address], 0 16:08:52 non-stress test 2018 019 Main Office, [address] [place], [address], 9 14:49:00 US, obstetric, limited 2018 019 DESHLER Main Office, [address] [place], [address], 9 20:50:25 Medication Orders ampicillin 2 gram [...] Room with ability to accept labor/delivery patients ([facility] [place] in [place]), they left via their own vehicle and [...] available 09/10/2021 14:13:38 08/13/2021 [id number] check out [email or web address] for a quick review on kick counts [...] to check out our video library at [email or web address] These resources can supplement the information you get during your care at [facility]. While we schedule routine visits based on [...] information on testing and procedures of . [facility] schedule for routine care discussed. While we [...] meets the risk criteria for care at [facility] and is anticipated to have a low-risk [...] concerned again. Not available 05/20/2020 19:22:37 05/07/2020 [id number] Yu is doing well. We discussed briefly the chances of being GBS positive again and treatment of that, should it occur. She is feeling healthy and looking foward to her upcoming . I recommended a virtual appointment in a week to go over lab results. eurban Not available 05/07/2020 22:58:41 05/06/2020 [id number] Discussed when a nd how to contact the on-call financial retirement plan specialist, when to come in for labor, what to expect once admitted at [facility] and expectations for period. Not available 05/07/2020 [...] sure to check out our website at [email or web address] and click on the page for Current Client Information. This page is password protected and that password is: [facility]. On this page you will find our client handbook with many informational handouts pertaining to your , , and time. We also have recorded videos covering some of the most common topics/question. These resources can supplement the information you get during your care at [facility]. While we schedule routine visits based on [...] information on testing and procedures of . [facility] schedule for routine care discussed. While we [...] meets the risk criteria for care at [facility] and is anticipated to have a low-risk [...] time. No circ if boy. Still evaluating Sommelier. Maybe Landon Romero. Feeling some pelvic pressures and morales del rosario. Having Clementine as forklift picker. Reviewed when to call in labor and [...] good hydration. Has hired Katalina for their forklift picker. Yu is planning to head to the lab either today or at her next visit. GBS swab was collected in-office today. Discussed HSV lab that has been added to final lab panel due to the options of benny at [facility]. Reviewed NB care and screenings. Yu is [...] a pediatric care provider; gave recommendation of [facility]. Have decided to hire Katalina as their forklift picker. Early US report was not included in [...] visit in 3 week. Please contact the financial retirement plan specialist with questions or concerns, as needed either through your health portal or via phone call. Not available 08/08/2018 13:05:53 Yu is here t skye for an initial visit with our practice, accompanied by her son. She is transferring into our care from a [facility] practice at 31.1 weeks gestation. Yu reports [...] and how and when to contact the financial retirement plan specialist for urgent or routine needs. Schedule for visits discussed and the client would prefer to meet on the WHO schedule for care. Labs have been requested from previous provider. At this time, she meets the risk criteria for care at [facility] and is anticipated to have a low-risk //postp artum time. Not available 08/08/2018 20:44:44 Reason for Referral None Reported. Results Created Date Observation Date Name Description Value Unit Range Abnormal Flag LastModifiedBy Organization Detail LastModifiedTime 09/13/19 19 09/12/2018 strep tococ cus group B, cultu re, genit al gbs pos positive Not Available [facility] [address], [place], [address], 09/14/2018 10:53:55 01/18/20 20 01/18/2020 CBC w/ diff CBC normal Not Available [facility] [address] [place], [address], 03/11/2020 15:06:33 05/07/20 20 05/07/2020 strep tococ cus group B Ag, vagin al gbs pos positive Not Available [facility] [address] [place], [address], 05/14/2020 10:34:58 05/07/20 20 05/07/2020 strep tococ cus group B Ag, vagin al CBC WNL normal Not Available [facility] [address] [place], [address], 05/14/2020 10:34:58 05/07/20 20 05/07/2020 strep tococ cus group B Ag, vagin al gbs pos positive Not Available [facility] [address] [place], [address], 05/14/2020 10:42:38 05/07/20 20 05/07/2020 strep tococ cus group B Ag, vagin al CBC normal Not Available [facility] [address] [place], [address], 05/14/2020 10:42:38 09/05/19 19 03/21/2018 US, obste tric, 1st trime ster No observ ation record ed. Not Available 09/04/2018 12:59:12 10/30/19 20 10/29/2019 US, obste tric, 1st trime ster No observ ation record ed. eurban [facility] [address] [facility] [place], [address], 11/15/2019 15:42:10 01/21/20 20 01/18/2020 US, obste tric, 2nd trime ster No observ ation record ed. [facility] [address] [place], [address], 02/13/2020 16:08:31 05/06/20 21 05/05/2021 US, obste tric, 1st trime ster No observ ation record ed. [facility] [address] [place], [address], 05/15/2021 11:32:48 06/19/20 21 06/17/2021 US, obste tric, 2nd trime ster No observ ation record ed. [address] [facility] [address] [place], [address], 08/13/2021 12:16:59 10/17/19 22 10/15/2021 US, obste tric, 3rd trime ster No observ ation record ed. [address] [facility] [address] [place], [address], 11/03/2021 14:51:29 Result Notes Documentation Provider Name and Address Organization Details Recorded Time Cbc W/ Diff : CBC WITH AUTO DIFFERENTIAL (01/18/2020 2:47 PM CDT): WHITE BLOOD COUNT 7.4 4.5 - 11.0 thou/cu [facility] RED BLOOD COUNT 4.21 4.20 - 5.40 mil/cu [facility] HEMOGLOBIN 12.7 12.0 - 16.0 g/dL [facility] HEMATOCRIT 37.7 36.0 - 48.0 % [facility] MCV 90 80 - 100 fL [facility] MCH 30.2 27.0 - 31.0 pg [facility] MCHC 33.7 32.0 - 36.0 g/dL [facility] RDW 13.1 11.0 - 15.0 % [facility] PLATELET COUNT 203 142 - 424 thou/cu [facility] MPV 9.5 6.5 - 11.0 fL [facility] NEUTROPHILS 75.1 37.0 - 80.0 % [facility] LYMPHOCYTES 18.4 10.0 - 50.0 % [facility] MONOCYTES 4.9 % [facility] EOSINOPHILS 0.9 % [facility] BASOPHILS 0.3 % [facility] ABSOLUTE NEUTROPHILS 5.6 1.7 - 7.0 thou/cu [facility] ABSOLUTE LYMPHOCYTES 1.4 0.9 - 2.9 ou/cu [facility] ABSOLUTE MONOCYTES 0.4 <0.9 ou/cu [facility] ABSOLUTE EOSINOPHILS 0.1 <0.5 ou/cu [facility] ABSOLUTE BASOPHILS 0.0 <0.3 ou/cu [facility] Specimen Blood - Blood specimen (specimen) Donna Rae CPM, [place], [address], [facility] 03/11/2020 15:07:57 Problems Name Status Onset Date Resolution Date Notes Provider Name and Address Organization Details Recorded Time Completed 07/31/19 19 10/09/2019 Donna Rae CPM, [place], [address], [facility] 05/04/2022 18:54:58 Completed 10/09/19 20 12/12/2019 Donna Rae CPM, [place], [address], [facility] 05/04/2022 18:54:58 Completed 03/16/20 20 04/21/2021 Donna Rae CPM, [place], [address], [facility] 05/04/2022 18:54:58 state Completed 05/31/20 20 09/24/2021 Donna Rae CPM, [place], [address], [facility] 09/24/2021 02:45:00 state Completed 05/31/20 20 RAF TORO, IGOR, LM [address], [place], [address], [facility] 04/21/2021 10:48:22 Completed 04/21/20 21 05/04/2022 Donna Rae CPM, LM [address] [place], [address], [facility] 05/04/2022 18:54:58 Problem Notes None recorded. Procedures Surgical History Date Name Laterality Status Provider Name and Address Organization Details Recorded Time 05/30/2020 Stages & Baby 2 completed Donna Rae CPM, LM [address], [place], [address], [facility] 05/30/2020 15:01:59 10/04/2018 Stages & Baby completed [facility] 10/04/2018 06:38:17 Imaging Results Imaging Date Name Status LastModified by Organiz ation Details LastModified Time 03/21/2018 US, obstetric, 1st trimester completed Information not available 09/04/2018 12:59:12 10/29/2019 US, obstetric, 1st trimester completed [facility] [address] [place], [address], 11/15/2019 15:42:10 01/18/2020 US, obstetric, 2nd trimester completed [facility] [address] [place], [address], 02/13/2020 16:08:31 05/05/2021 US, obstetric, 1st trimester completed [facility] [address] [place], [address], 05/15/2021 11:32:48 06/17/2021 US, obstetric, 2nd trimester completed [address] [facility] [address] [place], [address], 08/13/2021 12:16:59 10/15/2021 US, obstetric, 3rd trimester completed [address] [facility] [address], [place], [address], 11/03/2021 14:51:29 Procedure Notes None recorded. Medical [...] Address Organization Details Last Updated DateTime 9 [address]1615.0 0209 g 23.2 kg/m2 175.26 cm 14 /min 90 /min 98.1 [degF] 125 mm[Hg] 78 mm[Hg] [facility] 9 10:47:03 Date Recorded Body height Respiratory rate Heart rate Body temperature Systolic blood pressure Diastolic blood pressure Provider Name and Address Organization Details Last Updated DateTime 9 175.26 cm 14 /min 90 /min 97.4 [degF] 124 mm[Hg] 60 mm[Hg] [facility] 9 11:25:08 Date Recorded Body height Body mass index (BMI) Body weight Respiratory rate Heart rate Body temperature Systolic blood pressure Diastolic blood pressure Provider Name and Address Organization Details Last Updated DateTime 9 175.26 cm 23.5 kg/m2 59266.1 8683 g 14 /min 80 /min 98.2 [degF] 120 mm[Hg] 70 mm[Hg] [facility] 9 09:57:12 Date Recorded Body height Heart rate Body temperature Respiratory rate Body mass index (BMI) Body weight Systolic blood pressure Diastolic blood pressure Provider Name and Address Organization Details Last Updated DateTime 175.26 cm 70 /min 98.3 [degF] 14 /min 23.8 kg/m2 74395.3 7157 g 124 mm[Hg] 84 mm[Hg] [facility] 9 10:18:31 Date Recorded Body height Body mass index (BMI) Body weight Body temperature Heart rate Respiratory rate Systolic blood pressure Diastolic blood pressure Provider Name and Address Organization Details Last Updated DateTime 9 175.26 cm 23.9 kg/m2 88362.9 6394 g 98.3 [degF] 80 /min 14 /min 110 mm[Hg] 62 mm[Hg] [facility] 9 10:50:13 Date Recorded Body height Heart rate Body temperature Respiratory rate Systolic blood pressure Diastolic blood pressure Provider Name and Address Organization Details Last Updated DateTime 9 175.26 cm 80 /min 98.2 [degF] 14 /min 112 mm[Hg] 64 mm[Hg] [facility] 9 06:39:31 Date Recorded Body height Heart rate Body temperature Systolic blood pressure Diastolic blood pressure Provider Name and Address Organization Details Last Updated DateTime 10/05/2018 175.26 cm 80 /min 98.6 [degF] 110 mm[Hg] 62 mm[Hg] Donna Rae, [facility], LM [address] [place], [address], [facility] 9 16:38:17 Date Recorded Body height Body mass index (BMI) Respiratory rate Heart rate Body temperature Systolic blood pressure Diastolic blood pressure Provider Name and Address Organization Details Last Updated DateTime 9 175.26 cm 22.6 kg/m2 14 /min 80 /min 97.8 [degF] 118 mm[Hg] 70 mm[Hg] Gaye song, [facility] 9 10:57:52 Date Recorded Body weight Provider Name an d Address Organization Details Last Updated DateTime 11/06/2018 80872.60136 g Donna Rae, CPM, LM [address] [place], [place], , [facility] 10/09/2019 19:12:51 Date Recorded Body height Body mass index (BMI) Body weight Provider Name and Address Organization Details Last Updated DateTime 12/31/2019 175.26 cm 22.4 kg/m2 20369.27786 g RAF TORO, CPM, LM [address] [place], [place], , [facility] 12/31/2019 14:10:49 Date Recorded Body height Provider Name an d Address Organization Details Last Updated DateTime 02/11/2020 175.26 cm RAF TORO CPM, LM [address] [place], [place], , [facility] 02/11/2020 11:34:03 Date Recorded Body height Heart rate Systolic blood pressure Diastolic blood pressure Provider Name and Address Organization Details Last Updated DateTime 03/11/2020 175.26 cm 85 /min 122 mm[Hg] 76 mm[Hg] RAF TORO CPM, LM [address] [place], [place], , [facility] 03/11/2020 17:30:07 Date Recorded Body height Heart rate Body temperature Systolic blood pressure Diastolic blood pressure Provider Name and Address Organization Details Last Updated DateTime 04/01/2020 175.26 cm 80 /min 97.9 [degF] 129 mm[Hg] 80 mm[Hg] RAF TORO CPM, LM [address] [place], [place], , [facility] 0 17:39:34 Date Recorded Body height Provider Name an d Address Organization Details Last Updated DateTime 04/07/2020 175.26 cm RAF TORO CPM, LM [address] [place], [place], , [facility] 04/07/2020 11:56:21 Date Recorded Body height Heart rate Respiratory rate Systolic blood pressure Diastolic blood pressure Provider Name and Address Organization Details Last Updated DateTime 05/07/2020 175.26 cm 90 /min 14 /min 118 mm[Hg] 74 mm[Hg] Donna Rae, CPM, LM [address] [place], [address], [facility] 0 22:52:32 Date Recorded Body height Heart rate Systolic blood pressure Diastolic blood pressure Provider Name and Address Organization Details Last Updated DateTime 05/20/2020 175.26 cm 90.01 /min 120 mm[Hg] 75 mm[Hg] RAF TORO CPM, LM [address] [place], [address] , [facility] 05/20/2020 19:15:13 Date Recorded Body height Respiratory rate Body temperature Systolic blood pressure Diastolic blood pressure Provider Name and Address Organization Details Last Updated DateTime 0 175.26 cm 16 /min 97.4 [degF] 120 mm[Hg] 75 mm[Hg] Donna Rae, IGOR, LM [address] [place], [address], [facility] 0 13:16:18 Date Recorded Body height Provider Name an d Address Organization Details Last Updated DateTime 06/11/2020 175.26 cm Donna Rae [facility], LM [address] [place], [address], [facility] 06/11/2020 18:56:05 Date Recorded Body height Body mass index (BMI) Body weight Heart rate Systolic blood pressure Diastolic blood pressure Provider Name and Address Organization Details Last Updated DateTime 1 175.26 cm 21.9 kg/m2 49367.6 7076 g 90 /min 117 mm[Hg] 78 mm[Hg] RAF TORO CPM, LM [address] [place], [address], [facility] 1 17:09:39 Date Recorded Body height Heart rate Systolic blood pressure Diastolic blood pressure Provider Name and Address Organization Details Last Updated DateTime 06/17/2021 175.26 cm 85 /min 112 mm[Hg] 72 mm[Hg] RAF TORO, IGOR, LM [address] [place], [address] , [facility] 06/17/2021 13:50:56 Date Recorded Body height Heart rate Body temperature Systolic blood pressure Diastolic blood pressure Provider Name and Address Organization Details Last Updated DateTime 09/10/2021 175.26 cm 80 /min 97.2 [degF] 107 mm[Hg] 68 mm[Hg] RAF TORO, CPM, LM [address] [place], [address], [facility] 14:03:35 Date Recorded Body height Heart rate Systolic blood pressure Diastolic blood pressure Provider Name and Address Organization Details Last Updated DateTime 10/15/2021 175.26 cm 90 /min 126 mm[Hg] 76 mm[Hg] RAF TORO CPM, LM [address] [place], [address] , [facility] 10/15/2021 12:24:38 Date Recorded Body height Respiratory rate Heart rate Body temperature Systolic blood pressure Diastolic blood pressure Provider Name and Address Organization Details Last Updated DateTime 175.26 cm 16 /min 64.99 /min 98.5 [degF] 118 mm[Hg] 79 mm[Hg] RAF TORO, IGOR, LM [address] [place], [address], [facility] 08:03:36 Social History Question Answer Notes LastModified by Organizat ion Details LastModified Time Tobacco Smoking Status Never Smoker Not Available [employer] 04/22/2020 03:13:44 Do You Have An Advance Directive? No [id number] Information not available 04/22/2020 What Is Your Level Of Alcohol Consumption? None [id number] Information not available 04/22/2020 If You Are , What Was Your Level Of Alcohol Consumption Prior To ? Occasional [id number] Information not available 04/22/2020 Plan No Information no t available 08/13/2021 Is Blood Transfusion Acceptable In An Emergency? Yes [id number] Information not available 04/22/2020 What Is Your Level Of Caffeine Consumption? Moderate [id number] Information not available 04/22/2020 Live With Cats/exposure To Cat Litter No Information not available 08/13/2021 Are You Currently Employed? No [id number] Information not available 04/22/2020 What Type Of Diet Are You Following? REGULAR [id number] Information not available 04/22/2020 Do You Or Have You Ever Used E-cigarettes Or Vape? Never Used Electronic Cigarettes Information not available 08/13/2021 Education 4 Year College Informatio n not available 08/13/2021 Have There Been Any Changes To Your Family Or Social Situation? No [id number] Information no t available 04/22/2020 Illicit Drugs [...] available 08/13/2021 Are You Sexually Active? Yes [id number] Information not available 04/22/2020 Do You Have Smoke And Carbon Monoxide Detectors In Your Home? Yes [id number] Information not available 04/22/2020 Are You Passively Exposed To Smoke? No Information no t available 08/08/2018 Do You Or Have You Ever Used Smokeless Tobacco? Never Used Smokeless Tobacco Information not available 08/13/2021 How Much Tobacco Do You Smoke? No [id number] Information not available 04/22/2020 Smoking Pre- No Information not available 08/13/2021 General Stress Level Low Information not available 08/13/2021 Do You Use Sunscreen Routinely? No [id number] Information not available 04/22/2020 How Many Years [...] Time What is your exercise level? Heavy [id number] Information not available 04/22/2020 Mental Status None recorded. Family History Relationship Description Onset Age of this Age Resolved Age Notes Father No current problems or disability Mother No current problems or disability Medical History Condition Response Other N Blood Transfusion N Dermatologic Disorders N Gestational Diabetes N Anxiety Disorder N Autoimmune disease N Arthritis N Infertility N Polyps N Acid Reflux (GERD) N Cancer N Varicosities N Stroke N Neurologic/Epilepsy N Headaches N Fibromyalgia N Kidney Disease N Heart Problems N Kidney or Bladder Problems N Acne N Eating Disorder N Art (IVF or FET) N Hepatitis/Liver Disease N Trauma/Violence N Thrombophilias N Allergies (Food, seasonal, environmental ) N Drug/Latex Allergies/Reactions N Breast Cancer N Lung Disease N Defects or Inherited Disease N Breast Problem N Hematologic disorders N Anesthesia Complications N History of STI N Deep Vein Thrombosis N Polycystic ovary syndrome N History of abnormal pap N Endometriosis N High Cholesterol N Thyroid Problems N GI Problems N Anemia N Psychiatric Illness N Diabetes N Ovarian Cancer N Pulmonary (TB, Asthma) N Eczema N Abuse/Domestic Violence N Depression/ depression N Heart Disease N Pre-Eclampsia N Hypertension N Osteoporosis N Gynecological History Statement/Question Response Flow Moderate [...] Gaye Manuelosa Main Office [address] [address] 08/08/2018 10:35:32 08/11/2018 01:02:51 Routine care Gestation period, 31 weeks Fatigue during Breech presentation 4558 Gaye Manuelosa Main Office [address] [address] 08/29/2018 10:57:53 09/18/2018 13:29:03 Routine care Gestation period, 34 weeks 4605 Gaye Manuelosa Main Office [address] [address] 09/12/2018 09:23:49 09/18/2018 13:32:39 Normal Routine care 4656 Gaye Portillo Main Office [address] [place] [address] 09/26/2018 10:01:56 10/16/2018 20:55:49 Routine care Gestation period, 38 weeks 4679 Gaye Manuelosa Main Office [place] [address] 10/03/2018 10:25:06 10/16/2018 20:58:17 Gestation period, 39 weeks Routine care Amniotic fluid leaking Group B Streptococcus carrier 4686 [facility] [address] [address] 10/04/2018 06:18:47 10/04/2018 07:40:57 Normal Single live Gestation period, 39 weeks Group B Streptococcus carrier 4698 Donna Rae CPM, HOME [address] [address] 10/05/2018 16:37:36 10/17/2018 00:19:07 care management 4844 Gaye Portillo Main Office [facility] [address] [address] 11/06/2018 10:26:10 11/11/2018 20:52:02 care 6420 RAF TORO CPM, LM Main Office [facility] [address] [address] 12/31/2019 13:32:23 12/31/2019 17:00:21 Routine care 6583 RAF TORO CPM, LM Main Office [facility] [address] [address] 02/11/2020 11:33:06 02/11/2020 12:48:27 Second trimester Routine care 6670 RAFFLORENCE TORO, CPM, LM Main Office [address] [address] 03/11/2020 17:27:37 03/11/2020 18:17:52 Routine care 6736 ARFFLORENCE TORO, CPM, LM Main Office [address] [address] 04/01/2020 17:03:17 04/01/2020 18:02:23 6751 RAF HAZEL, CPM, LM Main Office [address] [address] 04/07/2020 11:53:53 04/07/2020 12:50:06 Routine care 6808 RAFFLORENCE TORO, CPM, LM Main Office [place] [address] 04/22/2020 12:36:22 04/22/2020 16:52:34 Normal 6869 RAF TORO, CPM, LM Main Office [address] [address] 05/06/2020 14:07:01 05/07/2020 13:42:55 6881 Donna Rae CPM, LM Main Office [facility] [address] [address] 05/07/2020 22:49:56 05/10/2020 08:36:34 6941 RAF TORO, CPM, LM Main Office [facility] [address] [address] 05/20/2020 19:14:31 05/20/2020 19:27:22 Routine care 6980 Donna Rae CPM, LM CENTER [address] [place] [address] 05/30/2020 14:46:52 06/01/2020 17:25:33 Normal Single live Gestation period, 39 weeks 6983 Donna Rae CPM, LM Main Office [address] [place] [address] 05/31/2020 13:14:00 05/31/2020 13:21:46 care 7030 Donna Rae CPM, LM Main Office [address] [address] 06/11/2020 18:55:40 06/11/2020 19:44:21 care 8443 RAF TORO CPM, LM Main Office [address] [address] 04/21/2021 15:25:38 04/25/2021 22:50:30 Routine care 8719 RAF TORO CPM, LM Main Office [address] [place] [address] 06/17/2021 13:03:46 06/30/2021 17:45:02 Routine care Second trimester Normal 8978 RAF TORO CPM, LM Main Office [address] [place] [address] 08/13/2021 12:07:53 12/27/2021 00:59:41 Routine care 9161 RAF TORO CPM, LM Main Office [address] [place] [address] 09/10/2021 11:52:43 09/29/2021 14:58:37 Routine care Normal 9305 RAF TORO CPM, LM Main Office [facility] [place] [address] 10/15/2021 12:02:35 12/27/2021 02:46:47 Routine care 9324 RAF TORO CPM, LM Main Office [facility] [place] [address] 10/25/2021 08:02:05 12/27/2021 01:59:03 9339 RAF TORO CPM, LM Main Office [facility] [place] [address] 10/29/2021 19:25:49 12/27/2021 01:05:06 Health Concerns Section Related Observation LastModified by Organization Detai ls LastModified Time None Recorded Concern Status LastModified by Organization Details LastModified Time None Recorded Advance Directives Directive N: Payers Encounter Date Sequence Insurance Name Policy Number Policy Whitney Covered Member ID Whitney Member ID Guarantor Name 10/29/2021 1 [place] [employer] Yu Tupy [id number] Yu Tupy 10/25/2021 1 [place] Yu Tupy [id number] Yu Tupy 10/15/2021 1 [place] Yu Tupy [id number] Yu Tupy 09/10/2021 1 [place] [employer] Yu Tupy [id number] Yu Tupy 08/13/2021 1 [place] [employer] Yu Tupy [id number] Yu Tupy 06/17/2021 1 [place] [employer] Yu Tupy [id number] Yu Tupy 04/21/2021 1 [place] [employer] Yu Tupy [id number] Yu Tupy 06/11/2020 1 [place] [employer] Yu Tupy [id number] Yu Tupy 05/31/2020 1 [place] [employer] Yu Tupy [id number] Yu Tupy 05/30/2020 1 [place] [employer] Yu Tupy [id number] Yu Tupy 05/20/2020 1 [place] [employer] Yu Tupy [id number] Yu Tupy 05/07/2020 1 [place] [employer] Yu Tupy [id number] Yu Tupy 05/06/2020 1 [place] [employer] Yu Tupy [id number] Yu Tupy 04/22/2020 1 [place] [employer] Yu Tupy [id number] Yu Tupy 04/07/2020 1 [place] [employer] Yu Tupy [id number] Yu Tupy 04/01/2020 1 [place] [employer] Yu Tupy [id number] Yu Tupy 03/11/2020 1 [place] [employer] Yu Tupy [id number] Yu Tupy 02/11/2020 1 [place] [employer] Yu Tupy [id number] Yu Tupy 12/31/2019 1 [place] [employer] Yu Tupy [id number] Yu Tupy 11/06/2018 1 [place] [employer] Yu Tupy [id number] Yu Tupy 10/05/2018 1 [place] [employer] Yu Tupy [id number] Yu Tupy 10/04/2018 1 [employer] [employer] Yu Tupy [id number] Yu Tupy 10/03/2018 1 [place] [employer] Yu Tupy [id number] Yu Tupy 09/26/2018 1 [employer]) [employer] Yu Tupy [id number] Yu Tupy 09/12/2018 1 [employer]) [employer] Yu Tupy [id number] Yu Tupy 08/29/2018 1 [employer]) [employer] Yu Tupy [id number] Yu Tupy 08/08/2018 1 [employer]) [employer] Yu Tupy [id number] Yu Renee Notes Date Note Type Note Provider Name and Address Organization Details Recorded Time 08/08/2018 text/html HPI Notes: Elva santa is a 23 year old [id number] presents today for an initial visit with our practice. She is transferring into our care from the clinic in [place] . Yu stated they based her DALLAS of 10/09/18 on her LMP of 01/11/18 and did not adjust for cycle length. She states she had an early US that confirmed DALLAS. We have not yet received Yu's medical records from her previous provider but will adjust or confirm DALLAS upon receival and review of records. [facility] 20:50:06 08/29/2018 text/html HPI Notes: Jaqueline santa is a 23 year old at 34wk1d who presents today for a routine visit. Baby was breech at her previous [facility] so she is anxious to find out baby's presentation today. [facility] 08/29/2018 13:17:47 09/12/2018 text/html HPI Notes: Jaqueline santa is a 23 year old at 36.1 weeks with an DALLAS of 10/09/18 who presents today for a routine visit. [facility] 09/12/2018 12:22:50 09/26/2018 text/html HPI Notes: Jaqueline santa is a 23 year old at 38wk1d with an DALLAS of 10/09/17 who presents today for a routine visit. [facility] 09/26/2018 10:52:12 10/03/2018 text/html HPI Notes: Jaqueline santa is a 23 year old at 39wk1d with an DALLAS of 10/09/18 who presents today for a routine visit. She reports she has noticed some water discharge so we will assess for SROM. [facility] 10/03/2018 17:39:21 10/04/2018 text/html HPI Notes: Jaqueline santa is a 23 year old with an DALLAS of 10/09/18 who presents today at 39wk1d in latent labor. She is being admitted for an anticipated with a valladares vertex baby. SROM confirmed at 1000 on 10/03/18. [facility] 10/04/2018 06:46:51 10/05/2018 text/html HPI Notes: Reported [...] problems; no mastitis; normal mood Donna Rae, [facility], LM [address] [place], [address], [facility] 10/05/2018 16:45:29 11/06/2018 text/html HPI Notes: Jaqueline santa is a 23 year old who had a at [facility] on 10/04/18. She has had an uncomplicated and presents today for her final PP visit. [facility] 11/06/2018 13:32:14 12/31/2019 text/html HPI Notes: John montenegro presents for an initial visit with our practice. She has not been seen by another provider for this . Last menstrual period is unknown. She is a G 3 P 2 Her DALLAS is 06/02/2020 based on Ultrasound. She has taken a home test with a positive result. RAF TORO, [facility], LM [address] [place], [address], [facility] 12/31/2019 14:14:23 02/11/2020 text/html HPI Notes: John montenegro is a 24 year old, . Today she presents for a routine visit at 24 gestation. RAF TORO CPM, LM [address], [place], [address], [facility] 02/11/2020 12:48:18 03/11/2020 text/html HPI Notes: John montenegro is a 24 year old, . Today she presents for a routine visit at 28.1 gestation. RAF TORO CPM, LM [address], [place], [address], [facility] 03/11/2020 18:17:43 04/01/2020 text/html HPI Notes: John montenegro is a 24 year old, . Today she presents for a cervical exam to possibly detect amniotic fluid at 31.1 gestation. Yu called the on-call line reporting concerns of a possible leak and agreed to come in for evaluation. RAF TORO CPM, LM [address], [place], [address], [facility] 04/01/2020 18:02:15 04/07/2020 text/html HPI Notes: John montenegro is a 24 year old, . Today she presents for a routine visit at 32 gestation. RAF TORO CPM, LM [address], [place], [address], [facility] 04/07/2020 12:49:58 04/22/2020 text/html HPI Notes: John montenegro is a 24 year old, . Today she presents for a routine visit at 34.1 gestation. RAF TORO CPM, LM [address] [place], [address], [facility] 04/22/2020 16:52:26 05/06/2020 text/html HPI Notes: John montenegro is a 24 year old, . Today she presents for a routine visit at 36.1 gestation. RAF TORO CPM, LM [address], [place], [address], [facility] 05/07/2020 13:42:47 05/07/2020 text/html HPI Notes: John montenegro is a 24 year old, . Today she presents for a routine visit at 36.2 wks gestation. Today's in-office visit is to confirm position and collection of labs, including GBS screening. Donna Rae CPM, LM [address] [place], [address], [facility] 05/07/2020 22:59:22 05/20/2020 text/html HPI Notes: John montenegro is a 24 year old, . Today she presents for pelvic exam and to confirm membranes are still intact. She is 38.1 wks gestation. RAF TORO CPM, [facility] [facility], [place], [address], [facility] 05/20/2020 19:27:16 05/30/2020 text/html HPI Notes: John montenegro is a 24 year old presenting in active labor/ 2nd stage of labor. Risk status has been reviewed and patient does meet risk criteria for admission to [facility] for delivery. Intake vitals are within normal and normal delivery is anticipated. presentation is vertex and position is ELPIDIO. EFW in lbs is: 8. Patient is well nourished and hydrated on arrival. She is accompanied by her , Kennedy, and her forklift picker, Katalina. Donna Rae CPM, [facility] [place], [address], [facility] 05/30/2020 15:03:12 05/31/2020 text/html HPI Notes: Visit [...] Donna Rae CPM, LM [address] [place], [address], [facility] 05/31/2020 13:21:22 06/11/2020 text/html HPI Notes: Visit [...] visit. Donna Rae CPM, LM [address] [place], [address], [facility] 06/11/2020 19:03:00 04/21/2021 text/html HPI Notes: John [...] RAF TORO CPM, LM [address] [place] [place], [address], [facility] 04/21/2021 17:12:59 06/17/2021 text/html HPI Notes: John montenegro is a 25 year old, . Today she presents for a routine in-office visit at 19.6 wks gestation. RAF TORO CPM, LM [address] [place] [place], [address], [facility] 06/17/2021 13:53:56 08/13/2021 text/html HPI Notes: John montenegro is a 26 year old, . Today she presents for a routine in-office visit at 28 wks gestation. RAF TORO CPM, LM [address] [place], [address], [facility] 08/13/2021 12:55:49 09/10/2021 text/html HPI Notes: John montenegro is a 26 year old, . Today she presents for a routine in-office visit at 32 wks gestation. RAF TORO CPM, LM [address] [place], [address], [facility] 09/10/2021 14:16:29 10/15/2021 text/html HPI Notes: John montenegro is a 26 year old, . Today she presents for a routine in-office visit at 37.0 wks gestation. RAF TORO CPM, LM [address] [place], [address], [facility] 10/15/2021 12:31:00 10/25/2021 text/html HPI Notes: John montenegro is a 26 yo presenting for labor assessment today due to regular uterine contractions since 0200. RAF TORO CPM, LM [address] [place], [address], [facility] 10/25/2021 08:13:28 OBGyn Episode Ob Episode Information Episode Created Date Number of Fetuses Patient Bloodtype Patient rh Status Prepregnancy Weight lbs Domestic Partner Domestic Partner Phone Father Name Sommelier Status 07/31/19 19 1 A Positive 137 [...] 05/30/20 18 20 09/04/2018 10/10/19 19 3 Pre- Flowsheet Flowsheet Date 08/08/2018 Cruz Score Blood Edema Fundus Height Fundus Units Glucose Ketones Leukocytes Nitrite Labor Signs Protein Cervic Dilation Cervic Effacement Cervic Station none 31 cm [place] Type Weight in lbs BP [...] Cervic Effacement Cervic Station none 37 cm [place] Type Weight in lbs BP Diastolic BP Location Tested BP Systolic BP Type 84 124 sitting Fetus Heart Rate Present A 130-140s Present Fetus Movement A Yes Comments Feeling occasional pressure and [place] contractions. Lots of movement.LOTEFW: 6.5lbs [...] Estim ated Date of Delivery false Thalassemia (American, Montenegrin, Mediterranean, Or Background): MCV < 80 false Neural Tube Defect (Meningomyelocele, Spina Bifi da, Or Anencephaly) false Congenital Heart Defect false Down Syndrome false Moe-Sachs (eg, Shinto, Cajun, Iraqi-Bolivian) f alse Brett Disease false Sickle Cell Disease Or Trait () false Hemophilia Or Other Blood Disorders false Muscular Dystrophy false Cystic Fibrosis false [place]'s Chorea false Intellectual Disability/Autism false If Yes, [...] 38 wk- role of midwi fe vs. forklift picker here and in a transfer, plan for [...] 08/29/2018 30-32 wk- Pediatrici an name collected [facility]? 09/26/2018 36 wk- ordered final labs, signed refusals for those not consenting 09/12/2018 [place] education (n ewborn screening, jaundice, SIDS/safe sleeping [...] Domestic Partner Domestic Partner Phone Father Name Sommelier Status 10/09/19 20 1 A Positive 145 Kennedy CLOSED Fetus Data First Name Last Name Admitted to NICU Weight (g) Sex Living Outcome Pediatric Complications Fetus ID Race Codes Race Delivery Type Tupy false 3883.88 15 M true Full Term 2432 2106-3 White Problems Problem Notes Problem Name Start Date End Date Resolution Snomed Code Not e state 05/31/2020 [id number] Dallas Calculation Initial [place] Date Initial Exam [...] 20 21 eurban 03/16/2020 06/02/20 20 0 Pre-kaye Flowsheet Flowsheet Date 12/31/2019 Cruz Score Blood [...] Estim ated Date of Delivery false Thalassemia (American, Montenegrin, Mediterranean, Or Background): MCV < 80 false Neural Tube Defect (Meningomyelocele, Spina Bifi da, Or Anencephaly) false Congenital Heart Defect false Down Syndrome false Moe-Sachs (eg, Shinto, Cajun, Iraqi-Bolivian) f alse Brett Disease false Sickle Cell Disease Or Trait () false Hemophilia Or Other Blood Disorders false Muscular Dystrophy false Cystic Fibrosis false [place]'s Chorea false Intellectual Disability/Autism false If Yes, [...] Discuss the ways to contact the oncall financial retirement plan specialist 12/31/2019 Nutrition counseling ; special diet; dietary [...] care provider Unsure but possibly planning on [facility] pediatricians Third Trimester Discussed Date Discussion Item Discussion Note Discuss ed By 04/07/2020 30-32wk GDM results reviewed, diet diary collected for women with positive screen 05/07/2020 36wk-Siblings and gu ests during labor and eurban 04/07/2020 30-32 wk nutrition and exercise review 05/07/2020 36 wks- forklift picker? Any q uestions about mask policies at [facility] for family? Wood Shingle Roofer is Katalina eurban 05/06/2020 34wk- discuss GBS [...] Domestic Partner Domestic Partner Phone Father Name Sommelier Status 08/30/19 19 1 CLOSED Fetus Data [...] Domestic Partner Domestic Partner Phone Father Name Sommelier Status 04/21/20 21 [address] Analy Renee Dr[address] Ruano at [place] CLOSED Fetus Data First Name Last Name [...] Estim ated Date of Delivery false Thalassemia (American, Montenegrin, Mediterranean, Or Background): MCV < 80 false Neural Tube Defect (Meningomyelocele, Spina Bifi da, Or Anencephaly) false Congenital Heart Defect false Down Syndrome false Moe-Sachs (eg, Shinto, Cajun, Iraqi-Bolivian) f alse Brett Disease false Sickle Cell Disease Or Trait () false Hemophilia Or Other Blood Disorders false Muscular Dystrophy false Cystic Fibrosis false [place]'s Chorea false Intellectual Disability/Autism false If Yes, [...] Discuss the ways to contact the oncall financial retirement plan specialist 04/21/2021 Nutrition counseling ; special diet; dietary [...] carseat and carseat safety 10/15/2021 36 wks- forklift picker? Any q uestions about mask policies at [facility] for family? Katalina Shukla 10/15/2021 36 wks- Discuss plac enta and note if family has plans for it. 09/10/2021 34wk- discuss GBS te sting and treatment options 36wk- and s igned informed consent, if applicable N/A 08/13/2021 movement monitoring rh [email or web address] 10/15/2021 36 wk- ordered final labs, signed refusals for those not consenting 10/15/2021 education (n ewborn screening, jaundice, SIDS/safe sleeping [...]
[2023-08-03 16:17] VITALS: PULSE 72; O2SAT 99
[2023-08-03 16:22] VITALS: PULSE 70; O2SAT 98
[2023-08-03 16:23] VITALS: TEMP 36.8
[2023-08-03 16:24] VITALS: BP 127/74; PULSE 60
[2023-08-03 16:33] VITALS: BMI 27.4
--- NOTE | 2023-08-03 17:27 | P.LDBA_ITS ---
Subjective History of Present Illness Date Seen: 08/03/23 Narrative: Patient is being admitted to Labor and Delivery for cervical ripening/induction of labor secondary to insulin-requiring GDM and h/o stillbirth. She is a 28 year old at 37 1/7 weeks gestation. Her full history and physical was dictated by Dr. Molina on 07/21/23 at the time of transfer of obstetric care. Please see this for details. She feels well. Her current insulin regimen was reviewed: she checks preprandial blood sugars and takes Lantis s8 units in the MORNINGS and 3-4 units of Humulog with meals if the preprandial BS is 120 or higher (generally just once daily with breakfast). Specific Issues/Plans Transfer of care H&P at [address] Molina #Hx of stillbirth - It was suspected she had undiagnosed gestational diabetes. - Her Hgb A1c was elevated to 6.9% at that time. - Her baby weighed 10lb 4oz at . KB was negative for evaluation of fetomaternal hemorrhage. APLS testing was negative. Additionally, the was also complicated by a should dystocia. - Twice weekly surveillence with [facility] in [place] - Per M delivery between 37-39 weeks for history of stillbirth and maternal anxiety related to the event #GDM A2 - Dx based on 1h (142), 3hr (95, 180, 155, 140) - Current insulin regimen: 24 units of Lantus HS, 3-4 units of Humalog prior to meals. If she eats less than 30 carbs, she will use 3 units. More than 30 carbs, she will use 4 units. - Growth on 07/21: EFW 32nd percentile. AC 44th percentile. SDP 5.3 cm -US 07/29/23: cephalic, anterior placenta, normal fluid with MVP 5.5, EFW 49%, AC 68% OB - Problem Based A/P Additional Plan (1) Gestational diabetes mellitus (GDM) requiring insulin: Status: Acute (2) History of IUFD: Problem details: 39w 3d Status: Acute (3) Encounter for induction of labor: Status: Acute Delivery/Labor/Induction Plan Induction method: Intracervical balloon catheter (with slow pit overnight per protocol) OB Exam Physical Exam Vital signs: Temp Pulse BP Pulse Ox 98.3 F 60 127/74 98 08/03/23 16:23 08/03/23 16:24 08/03/23 16:24 08/03/23 16:22 Detailed Labor and Delivery Exam Patient Gravid: Yes Dilation (cm): 1 Cervix position: mid Consistency: medium Contraction Frequency: occassional Tachysystole: No Contraction intensity: Mild Fetus (Single) Station: -3 Amniotic Membrane Status: intact Heart Rate Baseline: 130 Monitor Accelerations: Present Monitor Decelerations: None Associate Professor Of Literature Variability: Moderate (6-25)
[2023-08-03 18:25] LABS: Basophils Absolute Auto 0.03 K/uL (0.00-0.30); Basophils Percent Auto 0.3 % (0.0-3.0); Eosinophils Absolute Auto 0.06 K/uL (0.00-0.50); Eosinophils Percent Auto 0.6 % (0.0-7.0); Hematocrit 38.7 % (33.0-51.0); Hemoglobin* 12.9 gm/dL (12.0-16.0); Immature Granulocytes Abs Auto 0.14 K/uL (0.00-0.30); Immature Granulocytes Pct Auto 1.5 %; Lymphocytes Percent Auto 18.3 % (20-44); Mean Corpuscular HGB Conc 33 gm/dL (32-36); Mean Corpuscular Hemoglobin 30 pg (26-34); Mean Corpuscular Volume 90 fL (80-100); Neutrophils Percent Auto 74.3 % (42.0-72.0); Platelet Count* 203 K/uL (140-440); RDW Coefficient of Variation % 13.3 % (11.5-15.5); Red Blood Count 4.29 m/uL (4.00-5.20); White Blood Count* 9.49 K/uL (4.50-11.00)
[2023-08-03 18:26] LABS: Slide Review Reflex No
[2023-08-03 20:18] VITALS: BP 124/65; PULSE 68; PULSE 69; RESP 16; TEMP 37; O2SAT 97
[2023-08-03] MEDS: ONDANSETRON ODT 4 MG TAB 8 MG PO (23:31)
[2023-08-03] MEDS: MORPHINE 10 MG/ML inj IM (23:34)
[2023-08-03] MEDS: hydrOXYzine pamoate 25 MG CAPSULE 100 MG PO (23:38)
[2023-08-03 23:53] VITALS: BP 141/65; PULSE 71; PULSE 72; O2SAT 100
[2023-08-04] VITALS (28 sets, daily range): BP systolic 111–145; BP diastolic 57–79; PULSE 57–96; RESP 16–18; TEMP 36.6–37.2; O2SAT 98
[2023-08-04] MEDS: LACTATED RINGERS 1000 ML 1,000 ML 125 ML IV ×2 (00:08→07:53)
[2023-08-04] MEDS: OXYTOCIN 30 unit/500 ML in NS 30 UNIT/500 ML BAG IVPB (00:09)
[2023-08-04] MEDS: ONDANSETRON ODT 4 MG TAB 8 MG PO (06:06)
--- NOTE | 2023-08-04 08:33 | P.OBPN_ITS ---
Subjective Date Seen: 08/04/23 Narrative: Feeling okay Objective Vital Signs: Last Vital Signs Temp 98.5 F 08/04/23 04:15 Pulse 59 L 08/04/23 04:15 Resp 16 08/04/23 04:15 BP 117/58 L 08/04/23 04:15 Pulse Ox 100 08/03/23 23:53 Contractions Monitor mode: External Contraction pattern: Regular Contraction intensity: Mild Pitocin Rate (mU/min): 8 Assessment Assessment: induction ongoing Station: -3 Status: Category l Heart Rate Baseline: 130 Jail Variability: Moderate (6-25) Monitor Accelerations: Present Monitor Decelerations: None Plan Plan: 1. IOL ongoing s/p cook catheter and currently IV Oxytocin infusion. 2. Patient concerned overnight about baby's position and bedside US confirmed vertex presentation/OA. 3. GBS negative. No need for antibiotic prophylaxis. 4. GDMA2. Patient has been eating normally and as per providers orders last night she was to utilizer her usual Lantus dose this morning, she utilized 24 units of Lantus this morning. Pre prandrial was 80 so she did not utilize any short acting insulin. Discussed plan with patient, that we will measure her BS 2 hours PP after breakfast and afterwards will start monitoring per protocol and treat BS as needed. Patient in agreement with plan. 5. Discussed aspects of plan with patient, gaviota and her . Reasonable requests, she would like to try to labor in the tub, not deliver in her back, she would love if her could assist in passing baby to her chest, delayed cord clamping etc...
[2023-08-04] MEDS: 5 % DEXTROSE/0.9% SOD CHLORIDE 1,000 ML 125 ML IV (12:50)
[2023-08-04] MEDS: LIDOCAINE 2% (PF) 5 ML VIAL EPIDURAL (14:09)
[2023-08-04] MEDS: ROPIVACAINE 0.2% 100 ml 100 ML 12 MG EPIDURAL (14:09)
[2023-08-04] MEDS: fentaNYL 100 MCG/2 ML inj EPIDURAL (14:09)
--- NOTE | 2023-08-04 14:27 | PM.ANBPRC ---
[facility] Social History (Updated 07/21/23 @ 16:07 by Sarah Nunes ~ MS) What is your current living situation?: I presently have a place to live Problems where you live: no known problems In the past 12 months, utilities in danger of being shut off: no In past 12 months, lack of transportation kept you from medical appts, meetings, work, or getting things needed for daily living: no In the past 12 mos, have been you worried that your food would run out before you had money to buy more?: never true In the past 12 mos, the food you bought just didn't last and you didn't have money to buy more?: never true Smoking Status: Never smoker How often does anyone, including family, friends and others, physically hurt you: never How often does anyone, including family, friends and others, insult or talk down to you: never How often does anyone, including family, friends and others, threaten you with harm: never How often does anyone, including family, friends and others, scream or curse at you: never Little interest or pleasure in doing things: not at all Feeling down, depressed, or hopeless: not at all Meds Home Medications and Allergies Home Medications Medication Instructions Recorded Confirmed Type cholecalciferol (vitamin D3) 25 25 mcg PO QDAY 07/21/23 08/03/23 History mcg (1,000 unit) capsule insulin lispro 100 unit/mL 4 unit subcut BID 07/21/23 08/03/23 History subcutaneous pen (Humalog KwikPen (U-100) Insulin) omega-3 fatty acids 1,000 mg 1,000 mg PO QDAY 07/21/23 08/03/23 History capsule vits no.126-ferrous fum 1 tab PO QDAY 07/21/23 08/03/23 History 28 mg iron-folic acid 800 mcg tablet (Classic ) ondansetron 8 mg disintegrating 4 mg PO Q8H 07/28/23 08/03/23 History tablet insulin glargine 100 unit/mL (3 24 unit subcut QDAY 08/01/23 08/03/23 History mL) subcutaneous pen (Lantus Solostar U-100 Insulin) Allergies Allergy/AdvReac Type Severity Reaction Status Date / Time No Known Drug Allergies Allergy Verified 08/01/23 08:09 Results Labs Labs: Laboratory Results - last 24 hr 08/03/23 18:18 WBC 9.49 RBC 4.29 Hgb 12.9 Hct 38.7 MCV 90 MCH 30 MCHC 33 RDW Coeff of Nelly 13.3 Plt Count 203 Neut % (Auto) 74.3 H Lymph % (Auto) 18.3 L [place] % (Auto) 5.0 Eos % (Auto) 0.6 Baso % (Auto) 0.3 Neut # (Auto) 7.10 H Lymph # (Auto) 1.70 [place] # (Auto) 0.50 Eos # (Auto) 0.06 Baso # (Auto) 0.03 Abs Immat Gran (auto) 0.14 Imm/Tot Granulo (auto) 1.5 Blood Type A Positive Antibody Screen NEGATIVE Vital Signs Vital Signs: Last Vital Signs Temp 98.3 F 08/04/23 10:44 Pulse 72 08/04/23 14:23 Resp 16 08/04/23 04:15 BP 131/60 08/04/23 14:23 Pulse Ox 100 08/03/23 23:53 Weight: 84.368 kg Height: 175.26 cm Anesthesia Procedures Epidural Insertion Patient Location: OB Start Time: 13:45 Stop Time: 14:15 Start Date: 08/04/23 Stop Date: 08/04/23 Reason for Block: procedure for pain Patient Position: sitting Performed By: Kit Christianson Preanesthetic Checklist: IV checked, risks and benefits discussed, monitors and equipment checked, pre-op evaluation, timeout performed and anesthesia consent Prep: chlorhexidine gluconate Monitoring: blood pressure monitoring, continuous pulse oximetry and heart rate Approach: midline Vertebral Space: lumbar (1-5) Epidural Technique: MT saline Needle Type: Tuohy needle Injection Technique: continuous catheter Needle gauge: 17 Needle Length (cm): 10 cm Needle Insertion Depth (cm): 6 Catheter Gauge: 19 Catheter Type: multi-orifice Catheter at skin depth (cm): 12 Test Dose Result: negative and lidocaine 1.5% with epinephrine 1 to 200,000
--- NOTE | 2023-08-04 16:33 | P.OBPN_ITS ---
Subjective Date Seen: 08/04/23 Narrative: Yu is a 28 yo who is here for IOL for GDM and hx of stillborn at term. She is a OB patient. She is currently in active labor, coping well. She is supported by her and rubber heel and sole press tender. I was requested to evaluate as her primary provider was occupied. She is requesting rupture of membranes. Objective Vital Signs: Last Vital Signs Temp 99 F 08/04/23 16:28 Pulse 64 08/04/23 16:28 Resp 16 08/04/23 04:15 BP 120/79 08/04/23 16:28 Pulse Ox 100 08/03/23 23:53 Pelvic Exam Dilation (cm): 5 Effacement (%): 60 Station: -2 Contractions Monitor mode: External Contraction pattern: Regular Contraction intensity: Strong/Firm Assessment Station: -3 Status: Category ll Heart Rate Baseline: 145 Penitentiary Variability: Moderate (6-25) Monitor Accelerations: Present Monitor Decelerations: Variable Plan Plan: ASSESSMENT:? 28 yo at 37 2/7 weeks gestation? complicated by:?Hx of stillbirth at term, GDM on insulin, hx of shoulder dystocia Labor type: Induced, Active labor? Category 2 FHR pattern.?? Labor complicated by: GDM? GBS negative? ? PLAN:? 1. Routine intrapartum cares as ordered. Pitocin titration per protocol. 2. Monitoring per policy, continuous. OB patient, current management by Dr. Mendez. Continues on insulin for GDM.? 3. Candidate for analgesia of choice if desired. 4. Patient encouraged to reposition and ambulate to promote physiologic labor and .? 5. AROM performed with consent. Risk/benefits discussed prior to procedure. 6. Anticipate ?
--- NOTE | 2023-08-04 16:40 | W.PM.OBVAGDE ---
OB Procedure Vag Delivery Mother Details Mother Details: The patient is a 28 year-old, 5, now Para 5004, admitted on 08/03/23 at 37 2/7 weeks gestation for IOL for GDM on insulin with history of stillbirth at term. : 5 Para: 5 Weeks Gestation: 37.2 Admission Date: 08/04/23 Additional Details Amniotic Membrane Status: intact Amniotic Membrane Rupture Date: 08/04/23 Amniotic Membrane Rupture Time: 13:05 Amniotic Membrane Fluid Description: Clear Analgesia/Anesthesia Type: Epidural Waterbirth: No Pitcoin: Yes Intrapartal Events: Labor Induction Induction Method: Intracervical balloon catheter, per pitocin protocol and AROM Labor Onset: 11:54 Complete: 15:04 Pushin:08 Heart: heart tones during second stage were intermittent category II with occasional variables but predominately category I until delivery. Delivery Details Delivery Date: 08/04/23 Delivery Time: 16:04 Route of delivery: Gender: Female Viability: Alive; Heart Rate Present Position at Delivery: OA Delivery Details: Patient was admitted for induction of labor and progressed induction/augmentation. AROM at 1305 with clear fluid. Patient was complete at 1504 and pushing at 1508. of a viable female at 1604 in right semifowler tilt on the bed. Vertex delivered OA. No nuchal cord or shoulder. Body delivered easily and without incident. Infant passed to mothers abdomen with a vigorous cry. Cord was clamped and cut at > 5 minutes. APGARS were 8 at one minute and 9 at five minutes respectively. Mouth was bulb suctioned. Intact placenta with a 3 vessel cord delivered spontaneously at 1626. Fundus firm. Intact perineum QBL 25 cc. Mother and baby stable; mother plans to breastfeed. weight pending. 1 Minute Interval Total Score: 8 5 Minute Interval Total Score: 9 Additional Details Shoulder Dystocia: No Placenta Delivery Time: 16:26 Placental Delivery Description: Spontaneous (Section of cord cut for patient, per her request; to pathology) Procedure Done: Global Blood Loss: 25 Laceration: None Blood Loss Measurement Type: QBL Bakri Used: No Sponge/Need Count Correct: Yes Cord Vessel Description: 3 Vessels Event Summary Status: Mother and were stable after delivery. Disposition: floor
[2023-08-04] MEDS: IBUPROFEN 600 MG TABLET PO ×2 (16:55→23:59)
[2023-08-04] MEDS: ACETAMINOPHEN 500 MG TABLET 1000 MG PO (19:26)
[2023-08-05] MEDS: ACETAMINOPHEN 500 MG TABLET 1000 MG PO ×3 (01:49→15:24)
[2023-08-05 04:59] VITALS: BP 123/63; PULSE 62; RESP 18; TEMP 36.4; O2SAT 92
[2023-08-05 06:19] LABS: Hemoglobin* 12.5 gm/dL (12.0-16.0)
[2023-08-05] MEDS: IBUPROFEN 600 MG TABLET PO ×2 (06:29→12:43)
[2023-08-05 08:45] VITALS: BP 118/73; PULSE 71; RESP 18; TEMP 36.4; O2SAT 97
[2023-08-05] MEDS: DOCUSATE SODIUM 100 MG CAPSULE PO (09:09)
--- NOTE | 2023-08-05 09:40 | PM.OBDSVD1 ---
DS: Providers Provider Date Seen: 08/05/23 Date of admission: 08/03/23 16:02 Primary care physician: Not a Local Provider Admitting Clinician: Jazmín Oakley MD Attending Physician on discharge: Tani Dyson CNM Date of Discharge: 08/05/23 DS: Diagnosis Discharge Diagnosis (1) care and examination immediately after delivery: Status: Acute (2) Lactating mother: Status: Acute (3) Gestational diabetes mellitus (GDM) requiring insulin: Status: Acute (4) History of IUFD: Status: Acute Problem details: 39w 3d Exam Narrative: Exam Narrative: GENERAL APPEARANCE: ?normal affect, alert, no distress MOOD: ?appropriate HEENT: normocephalic, neck supple, full ROM CHEST: ?Symmetrical chest wall movement. ?Normal respiratory effort. ?Clear to auscultation HEART: ?regular rate and rhythm ABDOMEN: ?soft, non-tender. Uterine fundus is firm, U/1 Umbilicus, Midline and is appropriate for the stage of recovery. ?Bowel sounds present. PERINEUM: ?mild edema of the perineum, intact EXTREMITIES: ?normal and no edema Const: Vital Signs, click to edit/add: Vital Signs - 24 hr 08/04/23 10:44 08/04/23 10:44 08/04/23 14:03 Temperature 98.3 F Pulse Rate 73 83 Pulse Rate [Blood Pressure Cuff] Respiratory Rate Blood Pressure 116/58 L 131/60 Blood Pressure [Le ft Arm] Pulse Oximetry Oxygen Delivery Ia thod 08/04/23 14:05 08/04/23 14:07 08/04/23 14:09 Temperature Pulse Rate 89 96 77 Pulse Rate [Blood Pressure Cuff] Respiratory Rate Blood Pressure 145/59 H 124/62 124/57 L Blood Pressure [Le ft Arm] Pulse Oximetry Oxygen Delivery Ia thod 08/04/23 14:11 08/04/23 14:13 08/04/23 14:15 Temperature Pulse Rate 77 79 76 Pulse Rate [Blood Pressure Cuff] Respiratory Rate Blood Pressure 133/61 121/58 L 118/58 L Blood Pressure [Le ft Arm] Pulse Oximetry Oxygen Delivery Ia thod 08/04/23 14:17 08/04/23 14:23 08/04/23 14:28 Temperature Pulse Rate 82 72 75 Pulse Rate [Blood Pressure Cuff] Respiratory Rate Blood Pressure 125/58 L 131/60 124/58 L Blood Pressure [Le ft Arm] Pulse Oximetry Oxygen Delivery Ia thod 08/04/23 14:33 08/04/23 14:38 08/04/23 14:48 Temperature Pulse Rate 75 75 76 Pulse Rate [Blood Pressure Cuff] Respiratory Rate Blood Pressure 128/60 130/60 122/58 L Blood Pressure [Le ft Arm] Pulse Oximetry Oxygen Delivery Ia thod 08/04/23 14:59 08/04/23 15:14 08/04/23 15:28 Temperature Pulse Rate 83 73 68 Pulse Rate [Blood Pressure Cuff] Respiratory Rate Blood Pressure 137/68 134/63 145/63 H Blood Pressure [Le ft Arm] Pulse Oximetry [facility] 08/04/23 16:28 08/04/23 16:28 08/04/23 16:43 Temperature 99 F Pulse Rate 64 64 Pulse Rate [Blood Pressure Cuff] Respiratory Rate Blood Pressure 120/79 115/59 L Blood Pressure [Le ft Arm] Pulse Oximetry Oxygen Delivery [facility] 08/04/23 16:43 08/04/23 16:58 08/04/23 16:58 Temperature 98.9 F 99 F Pulse Rate 57 L Pulse Rate [Blood Pressure Cuff] Respiratory Rate Blood Pressure 111/63 Blood Pressure [Le ft Arm] Pulse Oximetry Oxygen Delivery [facility] 08/04/23 17:28 08/04/23 17:28 08/04/23 17:43 Temperature 98.3 F Pulse Rate 63 68 Pulse Rate [Blood Pressure Cuff] Respiratory Rate Blood Pressure 123/60 127/63 Blood Pressure [Le ft Arm] Pulse Oximetry Oxygen Delivery [facility] 08/04/23 17:58 08/04/23 18:13 08/04/23 18:28 Temperature Pulse Rate 63 70 67 Pulse Rate [Blood Pressure Cuff] Respiratory Rate Blood Pressure 115/59 L 121/58 L 114/59 L Blood Pressure [Le ft Arm] Pulse Oximetry Oxygen Delivery [facility] 08/04/23 19:28 08/04/23 23:56 08/05/23 04:59 Temperature 98.1 F 97.8 F 97.6 F Pulse Rate Pulse Rate [Blood Pressure Cuff] 70 73 62 Respiratory Rate 18 18 18 Blood Pressure Blood Pressure [Le ft Arm] 118/60 135/75 123/63 Pulse Oximetry 98 98 92 Oxygen Delivery [facility] Room Air Room Air Room Air Documenting provider has reviewed patient's vital signs: yes OB - DS: Summary Hospital Course Hospital Course: Yu is a 28 y.o. who was admitted to [facility] for induction of labor. ?She had an uncomplicated NVD.?The patient feels well. ?The pain is well controlled with current medications. ?She has no new complaints. ?She is breast feeding and reports things are going well.? the patient has done well.? Vitals have been stable.? She has remained afebrile.? Has a good appetite, is tolerating a general diet. ?She is voiding without difficulty.? She is passing gas and has had a bowel movement.? She is ambulating and denies any dizziness.? Has Small amount of rubra lochia. ?She is undecided about prevention. Peripartum Data delivery method: Vaginal Laceration description: None complications: none [place] Gender: Female Discharge Plan: Home Status at Discharge Functional status at discharge: independent ambulation Overall status at discharge: patient is progressing back to baseline Time Spent with Patient Time attestation: Total time spent providing and/or coordinating discharge services: Time spent: Less than 30 minutes Discharge Plan Discharge Disposition: Home, Self-Care Date of Admission: 08/03/23 16:02 Primary Care Provider: Provider,Not a Local Condition: Stable Anticipated Discharge Date/Time: 08/05/23 16:00 Discharge Medications: New acetaminophen 500 mg Tablet 1,000 mg PO Q6H PRNQty: 0 0RF docusate sodium 100 mg Capsule 100 mg PO DAILY Qty: 90 2RF ibuprofen 600 mg Tablet 600 mg PO Q6H PRNQty: 60 0RF Continued Classic 28 mg iron- 800 mcg tablet 1 tab PO QDAY cholecalciferol (vitamin D3) 25 mcg (1,000 unit) capsule 25 mcg PO QDAY omega-3 fatty acids 1,000 mg capsule 1,000 mg PO QDAY ondansetron 8 mg tablet,disintegrating 4 mg PO Q8H Discontinued insulin lispro [Humalog KwikPen Insulin] 100 unit/mL insulin pen 4 unit subcut BID insulin glargine [Lantus Solostar U-100 Insulin] 100 unit/mL (3 mL) insulin pen 24 unit subcut QDAY Discharge Orders: Discharge Order (Routine); Ordered 08/05/23 Ordered By: Tani Dyson Patient Education: OB Over the Counter Medication Information, OB Vaginal/Breast Feeding Additional Instructions: Discharge instructions were reviewed with the patient including signs and symptoms of infection and home going medications Nothing vaginally for 6 weeks: no tampons or intercourse Off Work or School for 6 weeks 2-week visit: discuss feeding concerns, review control options and screen for anxiety/depression. 6-week visit for an annual exam. consultation services are available to all mothers and babies for the first year after delivery.? To make an appointment, please call [phone]. Activity Level: Activity as Tolerated Discharge Diet: Regular Follow Up Appointments: Provider,Not a Local [Primary Care Provider] - [facility] [Provider Group] Forms: [employer] Info Instructions
[2023-08-05 12:30] VITALS: BP 118/73; PULSE 56; RESP 18; TEMP 36.1; O2SAT 97
--- NOTE | 2023-08-05 14:13 | PM.ANPOST ---
Post Anesthesia Note Post Anesthesia Note Patient seen: Inpatient Respiratory Status: adequate Cardiovascular Status: adequate Mental Status: baseline Pain: adequate Temp: baseline Anesthetic awareness: N/A Complications: none Follow care: none
[2023-08-05 16:21] VITALS: BP 125/79; PULSE 123; RESP 16; TEMP 36.9; O2SAT 98
== END 2023-08-05 18:00 | disposition home or self-care (01) | DRG 560 ==
PROVIDERS: Advanced Practice Midwife; Admitting Provider Obstetrics & Gynecology; Visit Provider Obstetrics & Gynecology
DX: O24.424 Gestational diabetes mellitus in childbirth, insulin controlled (principal); Z3A.37 37 weeks gestation of pregnancy; Z37.0 Single live birth; Z87.59 Personal history of other complications of pregnancy, childbirth and the puerperium
CPT/HCPCS: 01967; 36415; 59200; 76815; 82962; 85018; 85025; 86850; 86900; 86901; 88307; A9270; C1726; J2270; J2371; J2795; J3010; J7042; J7120

== ENCOUNTER 2024-07-26 08:02 | Outpatient (CLI) | payer BC, SELFPAY | END 2024-07-26 08:03 | disposition home or self-care (01) | PROVIDERS: Visit Provider Registered Nurse | DX: Z34.91 Encounter for supervision of normal pregnancy, unspecified, first trimester (principal); O20.9 Hemorrhage in early pregnancy, unspecified; O34.81 Maternal care for other abnormalities of pelvic organs, first trimester; N83.12 Corpus luteum cyst of left ovary; Z3A.01 Less than 8 weeks gestation of pregnancy | CPT/HCPCS: 76801; 83021; 86703; 86706; 86803; 86850; 86900; 86901; 87086; 87340 ==

== ENCOUNTER 2024-07-26 09:59 | Outpatient (CLI) | payer BC, SELFPAY | END 2024-07-26 10:00 | disposition home or self-care (01) | PROVIDERS: Visit Provider Registered Nurse | DX: Z34.91 Encounter for supervision of normal pregnancy, unspecified, first trimester (principal); Z3A.01 Less than 8 weeks gestation of pregnancy | CPT/HCPCS: 83020; 83021; 85660; 86592; 86703; 86704; 86706; 86762; 86787; 86803; 86850; 86900; 86901; 87086; 87340 ==

== ENCOUNTER 2024-08-21 10:16 | Outpatient (CLI) | payer MEDICAID, SELFPAY | END 2024-08-21 10:17 | disposition home or self-care (01) | PROVIDERS: Visit Provider Obstetrics & Gynecology | DX: F41.9 Anxiety disorder, unspecified (principal); R53.83 Other fatigue; G47.00 Insomnia, unspecified | CPT/HCPCS: 80053; 83540; 83550; 84443 ==

== ENCOUNTER 2024-10-10 08:51 | Outpatient (CLI) | payer BC, SELFPAY | END 2024-10-10 08:52 | disposition home or self-care (01) | LOC: NPINS 08:54 | PROVIDERS: Visit Provider Internal Medicine | DX: O24.414 Gestational diabetes mellitus in pregnancy, insulin controlled (principal); Z3A.18 18 weeks gestation of pregnancy | CPT/HCPCS: 76811; 86341 ==

== ENCOUNTER 2024-11-07 11:46 | Outpatient (CLI) | payer BC, SELFPAY | END 2024-11-07 11:47 | disposition home or self-care (01) | LOC: US 11:46 | PROVIDERS: Visit Provider Obstetrics & Gynecology | DX: O99.891 Other specified diseases and conditions complicating pregnancy (principal); R73.03 Prediabetes; Z87.59 Personal history of other complications of pregnancy, childbirth and the puerperium; Z3A.22 22 weeks gestation of pregnancy | CPT/HCPCS: 76816 ==

== ENCOUNTER 2024-11-22 15:54 | Emergency (ER) | payer BC, SELFPAY ==
--- OUTSIDE RECORDS SUMMARY | 2024-11-22 15:56 | XMS_ITS | Encounter Summary ---
Author Organization [facility] Address [address] [place] [address] Care Team Providers Care Supervisor Sterile Processing Name Role Phone Laureano Bennett MD Primary Care Provider Laureano Bennett MD Unavailable [phone] Laureano Bennett MD Unavailable [phone] Unavailable [phone] Encounter Details Date Type Department Care Team (Late st Contact Info) Description 09/19/2020 [facility] Medical Advice [address] [phone] Rikki Auguste RN Social History Tobacco Use Types Packs/Day Years Used Date Smoking Tobacco: Never Smokeless Tobacco: Never Alcohol Use Standard Drinks/Week Comments Not Currently 0 (1 standard drink = 0.6 oz pur e alcohol) Comments Unknown Sex and Gender Information Value Date Recorded Sex Assigned at Not on file Legal Sex Female 5:25 PM CDT Gender Identity Not on file Sexual Orientation Not on file documented as of this encounter Plan of Treatment Not on file documented as of this encounter Visit Diagnoses Not on filedocumented in this encounter Care Teams Supervisor Sterile Processing Relationship Specialty Start Date End Date Laureano Bennett MD [address] [place] [address] [phone] PCP - General Family Medicine 07/07/20 Laureano Bennett MD [address] [place] [id number] Assigned PCP 06/12/20 06/04/22 Laureano Bennett MD [address] [place] [address] Assigned PCP 08/14/[address] [place] [address] [address] [facility] [place] [facility] [place] [address] 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
--- OUTSIDE RECORDS SUMMARY | 2024-11-22 15:56 | XMS_ITS | Encounter Summary ---
Author Organization [facility] Address [address] [place] [address] Care Team Providers Care Wood Miller Name Role Phone Laureano Bennett MD Primary Care Provider [phone] Laureano Bennett MD Unavailable [phone] Unavailable [phone] Reason for Visit * Reason Onset Date Comments MyChart Communication 02/27/2024 Encounter Details Date Type Department Care Team (Late st Contact Info) Description 02/27/2024 [facility] Medical Advice [address] [phone] Laureano Bennett MD [address] [place] [address] MyChart Communication Social History Tobacco Use Types Packs/Day Years Used Date Smoking Tobacco: Never Smokeless Tobacco: Never Alcohol Use Standard Drinks/Week Comments Not Currently 0 (1 standard drink = 0.6 oz pur e alcohol) PHQ-2 Answer Date Recorded PHQ-2 Score 0 02/27/2024 Adolescent Education Answer Date Record ed Getting School Help Needed Not on file 03/11 Food Insecurity Answer Date Recorded Within the past 12 months, d id you worry that your food would run out before you got money to buy more? No 06/14/2023 Within the past 12 months, d id the food you bought just not last and you didn t have money to get more? No 06/14/2023 Housing Stability Answer Date Recorded Do you have housing? (Housin g is defined as stable permanent housing and does not include staying outside in a car, in a tent, in an abandoned building, in an overnight senior care, or couch-surfing.) Yes 06/14/2023 Are you worried about losing [...] by your partner or ex-partner? No 07/19/2023 Comments Unknown Sex and Gender Information Value [...] Assessment Noted Time PHQ-9 Depression Total Score: 4 02/27/20 24 3:58 PM CDT documented as of this encounter Care Teams Wood Miller Relationship Specialty Start Date End Date Laureano Bennett MD [address] [place] [phone] PCP - General Family Medicine 07/07/20 Laureano Bennett MD [address] [place] [id number] Assigned PCP 08/14/[address] [facility] [place] [address] [place] [address] Steward/Stewardess Chief Cargo Vessel Dietitian, Registered 06/14/23 documented as of this encounter
--- OUTSIDE RECORDS SUMMARY | 2024-11-22 15:56 | XMS_ITS | Encounter Summary ---
Author Organization [facility] Address [address] [place] [address] Care Team Providers Care Water Pumper Name Role Phone Laureano Bennett MD Primary Care Provider [phone] Laureano Bennett MD Unavailable [phone] Unavailable [phone] Encounter Details Date Type Department Care Team ([facility] st Contact Info) Description 10/27/2024 [facility] Medical Advice [address] [phone] Laureano Bennett MD [address] [place] [address] Social History Tobacco Use Types Packs/Day Years Used Date Smoking Tobacco: Never Smokeless Tobacco: Never Alcohol Use Standard Drinks/Week Comments Not Currently 0 (1 standard drink = 0.6 oz pur e alcohol) Social Connection and Isolation Panel [NHANES] A nswer Date Recorded Frequency of Communication with Friends and Fami ly Not on file 04/04/2024 How often do you get together with friends or re latives? Once a week 04/04/2024 Attends [employer] Services Not on file 04/04 Active Member of Clubs or Organizations Not on f ile 04/04/2024 Attends Club or Organization Meetings Not on mesha e 04/04/2024 Marital Status Not on file 04/04/2024 PHQ-2 Answer Date Recorded PHQ-2 Score 0 07/10/2024 [facility] - Occupational Stress Questionnaire Answer Date Recorded Do you feel stress - tense, restless, nervous, or anxious, or unable to sleep at night because your mind is troubled all the time - these days? Very much 04/04/2024 Exercise Vital Sign Answer Date Recorde d On average, how many days pe r week do you engage in moderate to strenuous exercise (like a brisk walk)? 5 days 04/04/2024 On average, how many minutes do you engage in exercise at this level? 80 min 04/04/2024 Adolescent Education Answer Date Record ed Getting School Help Needed Not on file 03/11 Food Insecurity Answer Date Recorded Within the past 12 months, d id you worry that your food would run out before you got money to buy more? No 04/04/2024 Within the past 12 months, d id the food you bought just not last and you didn t have money to get more? No 04/04/2024 Housing Stability Answer Date Recorded Do you have housing? (Housin g is defined as stable permanent housing and does not include staying outside in a car, in a tent, in an abandoned building, in an overnight [facility], or couch-surfing.) Yes 04/04/2024 Are you worried about losing your housing? No 04/04/2024 Financial Resource Strain Answer Date R ecorded Within the past 12 months, h ave you or your family members you live with been unable to get utilities (heat, electricity) when it was really needed? No 04/04/2024 Transportation Needs Answer Date Record ed Within the past 12 months, h as lack of transportation kept you from medical appointments, getting your medicines, non-medical meetings or appointments, work, or from getting things that you need? No 04/04/2024 Interpersonal Safety Answer Date Record ed Do you feel physically and e motionally safe where you currently live? Yes 05/11/2024 Within the past 12 months, h ave you been hit, slapped, kicked or otherwise physically hurt by someone? No 05/11/2024 Within the past 12 months, h ave you been humiliated or emotionally abused in other ways by your partner or ex-partner? No 05/11/2024 Comments Unknown Sex and Gender Information Value Date Recorded Sex Assigned at Not on file Legal Sex Female 5:25 PM CDT Gender Identity Not on file Sexual Orientation Not on file documented as of this encounter Miscellaneous Notes * Telephone Encounter - Regina Candelario RN - 10/29/2024 8:01 AM CDT MARCELA 07/10/24 Would you advise a visit to discuss? Routing to provider to review and advise. Regina Candelario RN [facility] Triage documented in this encounter Plan of Treatment Not on file documented as of this encounter Visit Diagnoses Not on filedocumented in this encounter Additional Health Concerns Assessment Noted Time PHQ-9 Depression Total Score: 5 05/11/20 24 8:45 AM COTTON STRIPPER documented as of this encounter Care Teams Water Pumper Relationship Specialty Start Date End Date Laureano Bennett MD [address] [place] [id number] PCP - General Family Medicine 07/07/20 Laureano Bennett MD [address] [place] [phone] Assigned PCP 08/14/[address] [facility] [place] [address] [place] [address] Accuracy Expert Dietitian, Registered 06/14/23 documented as of this encounter
--- OUTSIDE RECORDS SUMMARY | 2024-11-22 15:56 | XMS_ITS ---
Author Organization [facility] Address [address] [place] [address] Care Team Providers Care Supervisor Chemical Name Role Phone Laureano Bennett MD Primary Care Provider [phone] Laureano Bennett MD Unavailable [address]ie Zee RD Unavailable [phone] Diabetes Self-Management Education Status:Identified (Enrolling) Start date:06/14/2023 Continued Care and Services Coordination
--- OUTSIDE RECORDS SUMMARY | 2024-11-22 15:56 | XMS_ITS | Clinical Summary ---
Author Organization [employer] Address [address] [place] [address] Care Team Providers Care Mine Motor Operator Name Role Phone Donna Rae LOCO Primary Care Provider [phone] Allergies No known active allergies Medications Pjanumry-It-Zgk- Fe-FA ( VITAMIN) tab tablet Take 1 tablet by mouth once daily. 0 06/01/2018 Active Ntjze-2-KRB-EPA- Fish Oil (FISH OIL) 1,000 mg (120 mg-180 mg) cap Take by mouth. 0 06/01/2018 Active Active Problems Patient Care Coordination No te Formatting of this note migh t be different from the original. 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 Not on file Not on file Not on file Obstetrics History Para Term AB IAB SAB Ectopic Multiple Livin g Live Births 2 1 1 1 1 Date Outcome GA Total Labor Labor/2nd/3rd Weight Sex Type Anes PTL Bina A1 A5 Name Clin 017 Term 39w 0d 3.32 kg (7 lb 5 oz) M Vag N Living Delivery Location:[place], [place] Comments:SROM, pit aug mentation, 7 hours labor Comments No previous /labor complications Last Filed Vital Signs Vital Sign Reading Time Taken Comments Blood Pressure 120/82 11/19/2018 5:04 PM CDT Pulse 94 11/19/2018 5:04 PM CDT Temperature 36.8 C (98.2 F) 11/19/2018 5:04 PM CDT Respiratory Rate 16 11/19/2018 5:04 PM CDT Oxygen Saturation 98% 11/19/2018 5:04 PM CDT Inhaled Oxygen Concentration - - Weight 70.3 kg (155 lb) 11/19/2018 5:04 PM CDT Height 175.3 cm (5' 9) 11/19/2018 5:04 PM CDT Body Mass Index 22.89 11/19/2018 5:04 PM CDT Plan of Treatment Health Maintenance Due Date Last Done Comments Tdap 2006 Hepatitis B series for 19+ ( 1 of 3 - 19+ 3-dose series) 2014 Tetanus booster 2015 Pap test for age 21-65 2016 Depression screening for age 12+ 07/06/2019 07/06/2018, 06/01/2018 BMI (ht and wt on same day) for age 18+ 11/20/2019 11/19/2018, 07/06/2018, 06/01/2018 COVID-19 vaccine series (2023- season) 2024 Influenza Vaccine (Season Ended) 2025 HIV for age 15-65 Completed 01/18/2020 Hepatitis C screening for ag e 18-79 Completed 01/18/2020, 09/25/2018 Pneumococcal series for age 6-49 Aged Out No longer eligible b ased on patient's age to complete this topic Procedures Procedure Name Priority Date/Time Associated Diagnosis Comments ANTI HIV /2 Today 01/18/2020 2:47 PM CDT Encounter for supervision of normal , antepartum, unspecified (HC) ANTI HCV Today 01/18/2020 2:47 PM CDT Encounter for supervision of normal , antepartum, unspecified (HC) from Last 3 Months or Most Recently Relevant to Health Maintenance Results * ANTI HCV (01/18/2020 2:47 PM CDT) HEPATITIS C ANTIBODY Non-Reacti ve Non-React eneida 01/18/2020 4:19 PM CDT [facility] Comment:Antibodies to HCV no t detected; does not exclude the possibility of exposure to HCV. Blood BLOOD SPECIMEN / Unknown Venipuncture / Unknown 01/18/2020 2:47 PM CDT 01/18/2020 2:51 PM CDT Evelin Santoyo CPM SEND OUTS Final Result [facility] [address], [place] [address], [place] [phone] * ANTI HIV 1/2 (01/18/2020 2:47 PM CDT) HIV-1/HIV-2 ANTIBODY Nonreactive Nonreactive 01/18/2020 4:26 PM CDT [facility] Blood BLOOD SPECIMEN / Unknown Venipuncture / Unknown 01/18/2020 2:47 PM CDT 01/18/2020 2:51 PM CDT Evelin Santoyo CPM SEND OUTS Final Result [facility] [address] [place] [address], [place] [phone] from Last 3 Months or Most Recently Relevant to Health Maintenance Insurance [place] [id number] [employer] [place] Care Teams Mine Motor Operator Relationship Specialty Start Date End Date Donna Rae CNM [address] [place] [id number] PCP - General Certified Nurse Lpn 10/29/19
--- OUTSIDE RECORDS SUMMARY | 2024-11-22 15:57 | XMS_ITS | Encounter Summary ---
Author Organization [facility] Address [address] [place] [address] Care Team Providers Care Hospital Account Liaison Name Role Phone Laureano Bennett MD Primary Care Provider [phone] Laureano Bennett MD Unavailable [phone] Unavailable [phone] Reason for Visit * Reason Comments Medication Refill Encounter Details Date Type Department Care Team ([facility] st Contact Info) Description 11/14/[address] [phone] Laureano Bennett MD [address] [place] [address] Medication Refill Social History Tobacco Use Types Packs/Day Years [...] re latives? Once a week 04/04/2024 Attends Spiritism Services Not on file 04/04 Active Member of Clubs or Organizations Not on f ile 04/04/2024 Attends Club or Organization Meetings Not on mesha e 04/04/2024 Marital Status Not on file 04/04/2024 PHQ-2 Answer Date Recorded PHQ-2 Score 0 07/10/2024 [facility] of Occupat ional Health - Occupational Stress Questionnaire Answer Date Recorded [...] in an abandoned building, in an overnight residential, or couch-surfing.) Yes 04/04/2024 Are you worried [...] as of this encounter Visit Diagnoses Diagnosis Nausea Nausea alone documented in this encounter Additional Health Concerns Assessment Noted Time PHQ-9 Depression Total Score: 5 05/11/20 24 8:45 AM REFINERY TECHNICIAN documented as of this encounter Care Teams Hospital Account Liaison Relationship Specialty Start Date End Date Laureano Bennett MD [address] [place] [address] [phone] PCP - General Family Medicine 07/07/20 Laureano Bennett MD [address] [place] [address] 386[address] Assigned PCP 08/14/[address] [place] [address] [place] [address] Ball Fringe Machine Operator Dietitian, Registered 06/14/23 documented as of this encounter
--- OUTSIDE RECORDS SUMMARY | 2024-11-22 15:57 | XMS_ITS | Encounter Summary ---
Author Organization [facility] Address [address] [place] [address] Care Team Providers Care Tavern Car Attendant Name Role Phone Laureano Bennett MD Primary Care Provider [phone] Laureano Bennett MD Unavailable [phone] Unavailable [phone] Reason for Visit * Reason Onset Date Comments Derm Problem 02/20/2024 Encounter Details Date Type Department Care Team (Late st Contact Info) Description 02/20/2024 MyC Medical Advice [address] [phone] Laureano Bennett MD [address] [place] [address] Derm Problem Social History Tobacco Use Types Packs/Day Years [...] Answer Date Recorded Do you have housing? (Modestoin g is defined as stable permanent housing and does not include staying outside in a car, in a tent, in an abandoned building, in an overnight residential, or couch-surfing.) Yes 06/14/2023 Are you worried [...] your partner or ex-partner? No 07/19/2023 Comments No Sex and Gender Information Value Date Recorded Sex Assigned at Not on file Legal Sex Female 5:25 PM CDT Gender Identity Not on file Sexual Orientation Not on file documented as of this encounter Miscellaneous Notes * Telephone Encounter - Nathalie Abarca - 02/22/2024 10:27 AM CDT MyChart message sent. There was a cancellation in provider's schedule for 02/27/24 4 check-in, appt scheduled so slot doesn't get taken. Left message to call back to see if this work. Please triage rash concerns if 02/27/24 appt doesn't work. documented in this encounter Plan of Treatment Not on file documented as of this encounter Visit Diagnoses Not on filedocumented in this encounter Additional Health Concerns Assessment Noted Time PHQ-9 Depression Total Score: 0 05/17/20 23 9:06 AM CHAIN HOIST OPERATOR documented as of this encounter Care Teams Tavern Car Attendant Relationship Specialty Start Date End Date Laureano Bennett MD [address] [place] [address] PCP - General Family Medicine 07/07/20 Laureano Bennett MD [address] [place] [address] Assigned PCP 08/14/[address] [place] [address] [place] [address] Hairspring Staker Dietitian, Registered 06/14/23 documented as of this encounter
--- OUTSIDE RECORDS SUMMARY | 2024-11-22 15:57 | XMS_ITS | Encounter Summary ---
Author Organization [facility] Address [address] [place] [address] Care Team Providers Care Sanitation Truck Driver Name Role Phone Laureano Bennett MD Primary Care Provider [phone] Laureano Bennett MD Unavailable [phone] Unavailable [phone] Encounter Details Date Type Department Care Team ([facility] st Contact Info) Description 10/31/2024 Orders Only [address] [place] [phone] Laureano Bennett MD [address] [place] [address] Social History Tobacco Use Types Packs/Day [...] re latives? Once a week 04/04/2024 Attends Rastafari Services Not on file 04/04 Active Member of Clubs or Organizations Not on f ile 04/04/2024 Attends Club or Organization Meetings Not on mesha e 04/04/2024 Marital Status Not on file 04/04/2024 PHQ-2 Answer Date Recorded PHQ-2 Score 0 07/10/2024 [facility] - Occupational Stress Questionnaire Answer Date Recorded [...] in an abandoned building, in an overnight penitentiary, or couch-surfing.) Yes 04/04/2024 Are you worried [...] as of this encounter Progress Notes * Laureano Bennett MD - 10/31/2024 8:34 AM CDT Patient called and discussed her concerns about her demise in 2021. In hindsight it looks like she had gestational diabetes that was undiagnosed. She did mention that 1 hour glucose screen was borderline elevated and was told about the 3-hour glucose screen and the nurse at the time gaveher the option to do it or not but she felt like she did really not understand what the risks were if she did definitively figure out if she had gestational diabetes (gestational diabetes complications). documented in this encounter Plan of Treatment Not on file documented as of this encounter Visit Diagnoses Not on filedocumented in this encounter Additional Health Concerns Assessment Noted Time PHQ-9 Depression Total Score: 5 05/11/20 24 8:45 AM PHARMACEUTICAL ANALYST documented as of this encounter Care Teams Sanitation Truck Driver Relationship Specialty Start Date End Date Laureano Bennett MD [address] [place] [address] PCP - General Family Medicine 07/07/20 Laureano Bennett MD [address] [place] [address] Assigned PCP 08/14/[address] [place] [address] Professor Of Social Work Dietitian, Registered 06/14/23 documented as of this encounter
--- OUTSIDE RECORDS SUMMARY | 2024-11-22 15:57 | XMS_ITS | Encounter Summary ---
Author Organization [employer] Address [address] [place] [address] Care Team Providers Care Government Relations Director Name Role Phone Laureano Bennett MD Primary Care Provider [phone] Laureano Bennett MD Unavailable [phone] Unavailable [phone] Reason for Visit * Reason Onset Date Comments MyChart Communication 03/31/2023 Encounter Details Date Type Department Care Team ([facility] st Contact Info) Description 03/31/2023 MyC Medical Advice [address] [phone] Laureano Bennett MD [address] [place] [address] MyChart Communication Social History Tobacco Use [...] in an abandoned building, in an overnight jail, or couch-surfing.) Yes 03/10/2023 Are you worried about losing [...] getting things that you need? No 03/10/2023 Comments Yes Sex and Gender Information Value Date Recorded [...] non detailed VM Megha Berg RN, BSN [place] Triage * Telephone Encounter - Laureano Bennett [...] for review too Megha Berg RN, BSN [facility] Triage documented in this encounter Plan of Treatment Not on file documented as of this encounter Visit Diagnoses Not on filedocumented in this encounter Additional Health Concerns Assessment Noted Time PHQ-9 Depression Total Score: 12 023 9:01 AM CDT documented as of this encounter Care Teams Government Relations Director Relationship Specialty Start Date End Date Laureano Bennett MD [address] [place] [address] PCP - General Family Medicine 07/07/20 Laureano Bennett MD [address] [place] [address] Assigned PCP 08/14/[address] [facility] [place] [address] [place] [address] Wood Shingle Roofer Dietitian, Registered 06/14/23 documented as of this encounter
--- OUTSIDE RECORDS SUMMARY | 2024-11-22 15:57 | XMS_ITS | Clinical Summary ---
Author Organization [facility] Address [address] [place] [address] Care Team Providers Care Assistant Passenger Locomotive Engineer Name Role Phone Laureano Bennett MD Primary Care Provider [phone] Laureano Bennett MD Unavailable [phone] Unavailable [phone] Allergies No known active allergies Medications Vit-Fe Fumarate-FA ( MULTIVITAMIN W/IRON) 27-0.8 MG tablet Take 1 tablet by mouth daily. Active fish oil-omega-3 fatty acids 1000 MG capsule Take 2 g by mouth daily. Active magnesium 250 MG tablet Take 1 tablet by mouth daily Active blood glucose monitoring (NO BRAND SPECIFIED) meter device kitIndications:G estational diabetes mellitus (GDM), antepartum, gestational diabetes method of control unspecified Use to test blood sugar 1-2 times daily or as directed. Preferred blood glucose meter OR supplies to accompany: Blood Glucose Monitor Brands: per insurance. 1 kit 12/14/19 24 Active mupirocin (BACTROBAN) 2 % external ointmentIndicati ons:Impetigo Apply topically 3 times daily. 30 g 07/10/19 25 Active ondansetron (ZOFRAN ODT) 4 MG ODT tabIndications:N ausea DISSOLVE ONE TABLET BY MOUTH EVERY 8 HOURS NEEDED FOR NAUSEA. 30 tablet 2 11/15/19 25 Active ondansetron (ZOFRAN ODT) 4 MG ODT tabIndications:N ausea Take 1 tablet (4 mg) by mouth every 8 hours as needed for nausea. 30 tablet 2 05/11/20 24 05/28/2 025 Discontinued Active Problems Problem Noted Date Diagnosed Date History of macrosomia in inf ant in prior , currently 10/31/2024 Pelvic floor dysfunction in female 07/10/2020 Dyspareunia, female 07/10/2020 Dermatitis 07/10/2020 Resolved Problems Problem Noted Date Diagnosed Date Resolved Date History of IUFD 11/03/2023 11/03/2023 Gestational diabetes mellitu s (GDM) requiring insulin 11/03/2023 11/03/2023 Encounter for triage in patient 07/08/2023 11/03/2023 Encounter for supervision of other normal in second trimester 03/10/2023 11/03/2023 Hyperemesis 01/04/2023 11/03/2023 Encounters Date Type Department Care Team Description 11/14/[address] [phone] Laureano Bennett MD Medication Refill 10/31/2024 Orders Only [address] [phone] Laureano Bennett MD 10/27/2024 MyC Medical Advice [facility] [address] [phone] Laureano Bennett MD from Last 3 Months Immunizations Immunization Administration Dates Next Due RSV (Abrysvo) 07/15/2023 TDAP (Adacel,Boostrix) 07/04/2023 Family History [...] re latives? Once a week 04/04/2024 Attends Mormon Services Not on file 04/04 Active Member of Clubs or Organizations Not on f ile 04/04/2024 Attends Club or Organization Meetings Not on mesha e 04/04/2024 Marital Status Not on file 04/04/2024 PHQ-2 Answer Date Recorded PHQ-2 Score 0 07/10/2024 [facility] of Occupat ional Health - Occupational Stress [...] in an abandoned building, in an overnight longterm, or couch-surfing.) Yes 04/04/2024 Are you worried [...] Sign Reading Time Taken Comments Blood Pressure 110/60 07/10/2024 1:09 PM COMMERCIAL COLLECTOR Pulse 91 07/10/2024 1:09 PM COMMERCIAL COLLECTOR Temperature 36.1 C (97 F) 07/10/2024 1:09 PM COMMERCIAL COLLECTOR Respiratory Rate 16 07/10/2024 1:09 PM COMMERCIAL COLLECTOR Oxygen Saturation 98% 07/10/2024 1:09 PM COMMERCIAL COLLECTOR Inhaled Oxygen Concentration - - Weight 75.5 kg (166 lb 8 oz) 07/10/2024 1:09 PM COMMERCIAL COLLECTOR Height 174 cm (5' 8.5) 07/10/2024 1:09 PM COMMERCIAL COLLECTOR Body Mass Index 24.95 07/10/2024 1:09 PM COMMERCIAL COLLECTOR Plan of Treatment Health Maintenance Due Date Last Done Comments YEARLY PREVENTIVE VISIT 1998 INFLUENZA VACCINE (Season Ended) 2025 ANNUAL REVIEW OF HM ORDERS 02/26/202502/26, 01/04/2023, 07/07/2020 PAP 02/10/2026 02/10/2023 DIABETES SCREENING 05/11/2027 05/11/2024, 11/19/2018 DTAP/TDAP/TD VACCINE (2 - Td or Tdap) 07/04/2033 07/04/2023 ADVANCE CARE PLANNING 11/03/2043 Postpo georgie from 1995 (Patient Declined) ZOSTER VACCINE (1 of 2) 2045 CHLAMYDIA SCREENING Discontinued 02/10/2023, 9 HIV SCREENING Completed 02/10/2023, 01/18/2020 RSV VACCINE Discontinued 07/15/2023 PHQ-2 (once per calendar year) Completed 07/10/2024, 05/11/2024, 05/11/2024, Additional history exists HEPATITIS C SCREENING Discontinued 07/26/2024 , 01/18/2020, 09/25/2018 COVID-19 VACCINE Discontinued HEPATITIS B VACCINE Discontinued HPV VACCINE Aged Out No longer eligi ble based on patient's age to complete this topic MENINGITIS VACCINE Aged Out No longer eligible based on patient's age to complete this topic PNEUMOCOCCAL VACCINE: PEDIATRICS (0 to 5 YEARS) AND AT-RISK PATIENTS (6 to 49 YEARS) Aged Out No longer eligible based on patient's age to complete this topic Procedures Procedure Name Priority Date/Time Associated Diagnosis Comments BASIC METABOLIC PANEL Routine 05/11/2024 10:11 AM COMMERCIAL COLLECTOR Screening for diabetes mellitus HIV ANTIGEN ANTIBODY COMBO Routine 02/10/2023 9:27 AM CDT , unspecified gestational age CHLAMYDIA TRACHOMATIS PCR Routine 02/10/2023 8:59 AM CDT , unspecified gestational age GYNECOLOGIC CYTOLOGY Routine 02/10/2023 8:29 AM CDT , unspecified gestational age from Last 3 Months or Most Recently Relevant to Health Maintenance Results * Basic metabolic panel (Ca, Cl, CO2, Creat, Gluc, K, Na, BUN) (05/11/2024 10:11 AM COMMERCIAL COLLECTOR) Sodium 138 135 - 145 mmol/L 05/12/2024 10:04 AM COMMERCIAL COLLECTOR [facility] Potassium 4.4 3.4 - 5.3 mmol/L 05/12/2024 10:04 AM COMMERCIAL COLLECTOR [facility] Chloride 103 98 - 107 mmol/L 05/12/2024 10:04 AM COMMERCIAL COLLECTOR [facility] Carbon Dioxide (CO2) 28 22 - 29 mmol/L 05/12/2024 10:04 AM COMMERCIAL COLLECTOR [facility] Anion Gap 7 7 - 15 mmol/L 05/12/2024 10:04 AM COMMERCIAL COLLECTOR [facility] Urea Nitrogen 18.4 6.0 - 20.0 mg/dL 05/12/2024 10:04 AM COMMERCIAL COLLECTOR [facility] Creatinine 0.69 0.51 - 0.95 mg/dL 05/12/2024 10:04 AM COMMERCIAL COLLECTOR [facility] GFR Estimate >90 >60 mL/min/1.7 3m2 05/12/2024 10:04 AM COMMERCIAL COLLECTOR [facility] Comment:eGFR calculated us2020 CKD-EPI equation. Calcium 10.0 8.8 - 10.4 mg/dL 05/12/2024 10:04 AM COMMERCIAL COLLECTOR [facility] Comment:Reference intervals for this test were updated on 01/03/2024 to reflect our healthy population more accurately. There may be differences in the flagging of prior results with similar values performed with this method. Those prior results can be interpreted in the context of the updated reference intervals. Glucose 91 70 - 99 mg/dL 05/12/2024 10:04 AM COMMERCIAL COLLECTOR [facility] Blood BLOOD SPECIMEN / Unknown Venipuncture / Unknown 05/11/2024 10:11 AM COMMERCIAL COLLECTOR 05/11/2024 10:11 AM COMMERCIAL COLLECTOR us Laureano Bennett MD LAB - BLOOD ORDERABLES Final Result [facility] [place] [facility] [address] [facility], [address] [phone] * HIV Antigen Antibody Combo (02/10/2023 9:27 AM CDT) HIV Antigen Antibody Combo Nonreactive Nonreactive 02/10/2023 8:54 PM CDT [facility]/PROT/EN DO Comment:HIV-1 p24 Ag & HIV-1 /HIV-2 Ab Not Detected Blood BLOOD SPECIMEN / Unknown Venipuncture / Unknown 02/10/2023 9:27 AM CDT 02/10/2023 9:27 AM CDT us Laureano Bennett MD LAB - BLOOD ORDERABLES Final Result [facility] C[facility]/PROT/ENDO Specialty Core/Prot/Endo [address] [facility], [address] [place] [address], [facility] [phone] * CHLAMYDIA TRACHOMATIS PCR (02/10/2023 8:59 AM CDT) Chlamydia trachomatis Negative Negative 02/11/2023 12:02 PM CDT [facility] Comment:A negative result by deputy grand jury mediated amplification does not preclude the presence of C. trachomatis infection because results are dependent on proper and adequate collection, absence of inhibitors and sufficient rRNA to be detected. Swab CERVIX UTERI STRUCTURE / Unknown Non-blood Collection / Unknown 02/10/2023 8:59 AM CDT 02/10/2023 9:19 AM CDT us Laureano Bennett MD LAB - MICRO GENERAL ORDERABLE S Final Result [facility] Inf. Diseases Diag. Lab [address] [facility], [address] [place] [address], [facility] [phone] * Pap screen reflex to HPV if ASCUS - recommend age 25 - 29 (02/10/2023 8:29 AM CDT) Interpretation Negative for Intraepithelial Lesion or Malignancy (NILM) 02/14/2023 11:47 AM CDT [facility] at 1147 CDT Comment Papanicolaou Test Limitations: Cervical cytology is [...] Yes if ASCUS 02/15/20 11:47 AM CDT [facility] Previous Abnormal? No 02/14/2023 11:47 AM CDT [facility] Performing Labs The technical component of this testing was completed at [facility] 02/14/2023 11:47 AM CDT [facility] Brushing CERVIX UTERI STRUCTURE / Unknown Non-blood Collection / Unknown 02/10/2023 8:29 AM CDT 02/10/2023 9:18 AM CDT us Laureano Bennett MD LAB - MEME INGRAM Final Result [facility] [address] [facility], [address] [place] [address], [facility] [phone] from Last 3 Months or Most Recently Relevant to Health Maintenance Insurance [employer] Care Teams Assistant Passenger Locomotive Engineer Relationship Specialty Start Date End Date Laureano Bennett MD [address] [place] [phone] PCP - General Family Medicine 07/07/20 Laureano Bennett MD [address] [place] [address] [phone] Assigned PCP 08/14/[address] [place] [address] [place] [address] Design/Animation Instructor Dietitian, Registered 06/14/23
--- OUTSIDE RECORDS SUMMARY | 2024-11-22 15:57 | XMS_ITS | Encounter Summary ---
Author Organization [facility] Address [address] [place] [address] Care Team Providers Care Senior Oracle Database Administrator Name Role Phone Laureano Bennett MD Primary Care Provider Laureano Bennett MD Unavailable [phone] Unavailable [phone] Reason for Visit * Reason Onset Date Comments MyChart Communication 02/20/2023 Encounter Details Date Type Department Care Team ([facility] st Contact Info) Description 02/20/2023 MyC Medical Advice [address] [phone] Laureano Bennett MD [address] [place] [address] MyChart Communication Social History Tobacco Use Types Packs/Day Years Used Date Smoking Tobacco: Never Smokeless Tobacco: Never Alcohol Use Standard Drinks/Week Comments Not Currently 0 (1 standard drink = 0.6 oz pur e alcohol) PHQ-2 Answer Date Recorded PHQ-2 Score 3 01/04/2023 Comments Yes Sex and Gender Information Value [...] sent Awaiting reply Megha Berg RN, BSN [facility] Triage documented in this encounter Plan of Treatment Not on file documented as of this encounter Visit Diagnoses Not on filedocumented in this encounter Additional Health Concerns Assessment Noted Time PHQ-9 Depression Total Score: 12 023 9:01 AM CDT documented as of this encounter Care Teams Senior Oracle Database Administrator Relationship Specialty Start Date End Date Laureano Bennett MD [address] [place] [address]232 PCP - General Family Medicine 07/07/20 Laureano Bennett MD [address] [place] [address] Assigned PCP 08/14/[address] [place] [address] Construction Inspector Dietitian, Registered 06/14/23 documented as of this encounter
--- OUTSIDE RECORDS SUMMARY | 2024-11-22 15:57 | XMS_ITS | Clinical Summary ---
Author Organization [facility] Address [address] [place] [address] Care Team Providers Care Cable Way Operator Name Role Phone Elsewhere, Pcp Primary Care Provider Unavailabl e Source Comments Patient records contain information from all sites at [facility]. For routine questions regarding patient records, call [phone] during business hours, M-F 8:00 AM - 5:00 PM Central Time. Record requests for emergency care only can be directed to [phone] at any time.[facility] Allergies No known active allergies Medications docusate sodium (COLACE) 100 mg capsule Take 1 capsule (100 mg total) by mouth 2 (two) times a day. 30 capsule 1 2 Active Additional Information Patient not taking.Reported on 05/19/2022 ibuprofen (ADVIL,MOTRIN) 600 mg tablet Take 1 tablet (600 mg total) by mouth every 6 (six) hours as needed for mild pain or score 1-3 of 10, moderate pain or score 4-6 of 10, severe pain or score 7-10 of 10, headaches or fever. 90 tablet 2 Active omega 9-rxt-pxv-fish oil 1,000 mg (120 mg-180 mg) capsule Take by mouth. 8 Active albuterol 90 mcg/actuation inhaler Inhale 2 puffs every 4 (four) hours. 4 Active azithromycin (Zithromax) 250 mg tablet TAKE 2 TABLETS (500 MG) BY ORAL ROUTE ONCE DAILY FOR 1 DAY THEN 1 TABLET (250 MG) BY ORAL ROUTE ONCE DAILY FOR 4 DAYS 4 Active benzonatate (Tessalon) 200 mg capsule Take 1 capsule 3 times a day by oral route for 5 days, for cough. 4 Active fluticasone propion-salmete roL 250-50 mcg/dose diskus inhaler Inhale 1 puff twice a day by inhalation route. 4 Active promethazine-DM (Phenergan-DM) 6.25-15 mg/5 mL syrup Take 5 mL every 4 hours by oral route. 4 Active Active Problems Problem Noted Date Diagnosed Date Maternal Care For Intrauterine Single Gest ation 10/30/2021 39 Weeks Gestation 10/29/2021 Social History Tobacco Use Types Packs/Day Years Used Date Smoking Tobacco: Never Tobacco Cessation:Counseling Given: Not Answered Dental Answer Date Recorded Dental: Regular Dentist Unknown 10/30/19 22 Comments Unknown Sex and Gender Information Value Date Recorded Sex Assigned at Not on file Legal Sex Female 6:36 PM CDT Gender Identity Not on file Sexual Orientation Not on file Last Filed Vital Signs Vital Sign Reading Time Taken Comments Blood Pressure 120/93 05/21/2024 5:30 AM SADDLE STITCH OPERATOR Pulse 90 05/21/2024 5:58 AM SADDLE STITCH OPERATOR Temperature 36.8 C (98.2 F) 05/21/2024 5:23 AM SADDLE STITCH OPERATOR Respiratory Rate 20 05/21/2024 5:30 AM SADDLE STITCH OPERATOR Oxygen Saturation 97% 05/21/2024 5:58 AM SADDLE STITCH OPERATOR Inhaled Oxygen Concentration - - Weight 75.3 kg (166 lb 0.1 oz) 05/21/2024 5:18 A M SADDLE STITCH OPERATOR Height 175.5 cm (5' 9.09) 05/19/2022 1:41 PM CS T Body Mass Index 24.45 05/19/2022 1:41 PM SADDLE STITCH OPERATOR Plan of Treatment Health Maintenance Due Date Last Done Comments HIV Screening 1995 Hepatitis C Screening 1995 Hepatitis B Vaccines (1 of 3 - 19+ 3-dose series) 2014 COVID-19 Vaccine (2023- season) 2024 Influenza Vaccine (#1) 2024 Depression Screening (Annual PHQ-2) 06/20/2024 Cervical/Vaginal Cancer Screening 02/10/2026 02/10/2023 DTaP,Tdap,and Td Vaccines (2 - Td or Tdap) 07/04/2033 07/04/2023 Hepatitis B Screening Discontinued 02/10/2023 , 01/18/2020 HPV Vaccines Aged Out No longer eligi ble based on patient's age to complete this topic IPV Vaccines Aged Out No longer eligi ble based on patient's age to complete this topic Pneumococcal vaccine (0-49 years) Aged Out No longer eligible b ased on patient's age to complete this topic Insurance [facility] Advance Directives For more information, please contact: [phone] * Full Code (Latest Code Status on File) Date Activated Date Inactivated Comments 10/30/2021 2:51 AM 10/30/2021 3:16 PM Question Answer Comments Full Code: Not Discussed Due to: Not medically appropriate Care Teams Cable Way Operator Relationship Specialty Start Date End Date Elsewhere, Pcp PCP - General Internal Medicine 09/17/22
--- OUTSIDE RECORDS SUMMARY | 2024-11-22 15:57 | XMS_ITS | Data Portability ---
Author Organization [place] - [facility] , [facility] Address [address] [place] [address] Assessment Encounter Date Assessment Date Assessment LastModified by Organization Details LastModified Time 05/19/2024 05/19/2024 Assessment: 1. Upper Respiratory Infection with persistent cough - likely viral with possible secondary bacterial infection Plan: 1. Prescribed antibiotic - sent to [facility] pharmacy 2. Offered prescription cough medication (Teslon Pearls) 3. Recommended conservative measures including Mucinex 4. Patient counseled on expected course of illness: - Adult symptoms may persist up to 21 days - Return for evaluation if developing high fever, severe fatigue, or worsening symptoms - Advised about possible nighttime symptom exacerbation due to postnasal drainage 5. Follow up if symptoms worsen or fail to improve within expected timeframe [email or web address] Not available 05/19/2024 06:31:34 Plan of Treatment Reminders Order Date Submit Date Provider Last Modified By Organization Details Last Modified Time Details Appointments None recorded. Lab None recorded. Referral None recorded. Procedures None recorded. Surgeries None recorded. Imaging None recorded. Medication Orders promethazin e-DM 6.25 mg-15 mg/5 mL oral syrup 2023 [facility], [address] [place], [address], 4 03:20:51 albuterol sulfate HFA 90 mcg/actuati on aerosol inhaler 2023 [facility] [address], [address] [place], [address], 4 03:20:51 Advair Diskus 250 mcg-50 mcg/dose powder for inhalation 2023 [facility] [address], [address] [place], [address], 03:20:52 azithromyci n 250 mg tablet 2023 [facility] [address], [address] [place], [address], 06:27:03 benzonatate 200 mg capsule 2023 [facility] [address], [address] [place], [address], 06:28:17 ofloxacin 0.3 % eye drops 2023 [id number], [address], [id number], 22:50:45 Patient TargetsNo targets recorded. Patient Instructions Encounter Date Encounter Id Patient Instructions Last Modified By Organization Details Last Modified Time 05/16/2024 [id number] pinkeye: care instructions [email or web address] Not available 05/16/2024 22:50:34 05/19/2024 [id number] upper respirator y infection (cold): care instructions [email or web address] Not available 05/19/2024 06:26:51 05/21/2024 [id number] bronchitis: care instructions Not available 05/21/2024 05:21:36 05/21/2024 [id number] bronchitis: care instructions Not available 05/21/2024 03:20:26 Reason for Referral None Reported. Medical Equipment None Reported. Allergies No known drug allergies Medications Name Sig Start Date Stop Date Status Note LastModified by Organization Details LastModified Time accu-chek kit guide active Not Available Not Available No t Available promethazine -DM 6.25 mg-15 mg/5 mL oral syrup Take 5 mL every 4 hours by oral route. 2023 active Not Available Not Available Not Avai lable azithromycin 250 mg tablet TAKE 2 TABLETS (500 MG) BY ORAL ROUTE ONCE DAILY FOR 1 DAY THEN 1 TABLET (250 MG) BY ORAL ROUTE ONCE DAILY FOR 4 DAYS active Not Available Not Available No t Available ofloxacin 0.3 % eye drops INSTILL 1 DROP INTO AFFECTED EYE(S) BY OPHTHALMIC ROUTE 4 TIMES PER DAY active Not Available Not Available No t Available fluconazole 150 mg tablet TAKE ONE TABLET BY MOUTH ONCE WEEKLY active Not Available Not Available No t Available benzonatate 200 mg capsule Take 1 capsule 3 times a day by oral route for 5 days, for cough. active Not Available Not Available No t Available Accu-Chek Softclix Lancets USE TEST TO BLOOD SUGAR 1-2 TIMES DAILY OR DIRECTED. active Not Available Not Available No t Available ondansetron 8 mg disintegrati ng tablet DISSOLVE ONE TABLET BY MOUTH EVERY 8 HOURS NEEDED FOR NAUSEA active Not Available Not Available No t Available cephalexin 500 mg capsule TAKE ONE CAPSULE BY MOUTH THREE TIMES A DAY FOR 7 DAYS active Not Available Not Available N ot Available Advair Diskus 250 mcg-50 mcg/dose powder for inhalation Inhale 1 puff twice a day by inhalation route. 2023 active Not Available Not Available Not Avai lable mupirocin calcium 2 % topical cream APPLY TO AFFECTED AREA(S) THREE TIMES A DAY active Not Available Not Available No t Available albuterol sulfate HFA 90 mcg/actuatio n aerosol inhaler Inhale 2 puffs every 4 hours by inhalation route. 2023 active Not Available Not Available Not Avai lable ondansetron 4 mg disintegrati ng tablet DISSOLVE ONE TABLET BY MOUTH EVERY 8 HOURS NEEDED FOR NAUSEA. active Not Available Not Available No t Available metformin ER 500 mg tablet,exten ded release 24 hr TAKE 1-4 TABLETS BY MOUTH DAILY WITH DINNER active Not Available Not Available Not Available Ketostix strips NOT APPLICABLE ONE IN VITRO EVERY DAY FOR 7 DAYS THEN ONCE WEEKLY IF NEGATIVE active Not Available Not Available Not Available hydroxyzine pamoate 25 mg capsule TAKE ONE TO TWO CAPSULES BY MOUTH AT BEDTIME active Not Available Not Available No t Available BD Ultra-Fine Mini Pen Needle 31 gauge x 3/16 USE DIRECTED WITH LANTUS active Not Available Not Available Not Available Lantus Solostar U-100 Insulin 100 unit/mL (3 mL) subcutaneous pen INJECT 16 UNITS SUBCUTANEOU S EVERY MORNING active Not Available Not Available No t Available Humalog KwikPen (U-100) Insulin 100 unit/mL subcutaneous INJECT 6 UNITS UNDER THE SKIN DAILY WITH BREAKFAST DISCARD OPENED PEN AFTER 28 DAYS active Not Available Not Available No t Available Accu-Chek Guide test strips USE TO TEST BLOOD SUGAR 1-2 TIMES DAILY OR DIRECTED active Not Available Not Available No t Available Accu-Chek Guide Glucose Meter USE TO TEST BLOOD SUGAR 1-2 TIMES DAILY OR DIRECTED. active Not Available Not Available No t Available FreeStyle Ashley 14 Day Sensor kit USE 1 SENSOR EVERY 14 DAYS active Not Available Not Available No t Available Vitals None Recorded Social History None recorded. Functional Status None recorded. Mental Status None recorded. Family History Nothing Reported. Medical History No medical history recorded. Gynecological HistoryNo gynecological history recorded. Obstetrics History GPAL:G 0 P 0 0 0 0 Past Encounters Encounter ID Performer Location Encounter Start Date Encounter Closed Date Diagnosis/Indication Diagnosis SNOMED-CT Code Diagnosis ICD10 Code Diagnosis Note [id number] Summer MARYCHUY Walton [facility] [place] [address] [address] 05/16/2024 22:46:43 05/17/2024 04:50:55 Acute conjunctivitis 16930887 H10.32 [id number] DELFINO Orozco [facility] [place] [address] [address] 05/19/2024 06:24:09 05/19/2024 12:29:38 Acute upper respiratory infection 14284071 J06.9 [id number] DELFINO De Guzman [facility] [place] [address] [id number] 05/21/2024 03:12:00 05/21/2024 09:19:24 Acute bronchitis 62368511 J20.9 URI planDiffer ential Diagnosis: Acute bacterial rhinosinus itis vs viral URI vs bronchitis A: bronchitis suspected. Diagnosis and treatment plan discussed with patient using shared decision making. Patient voices understand ing and agrees with treatment plan. P: Use promethazi ne syrup, advair, albuterol. Follow up with [facility] or your doctor in 5 days if not better. Go to the ER immediatel y if you develop fever higher than 103, severe headache, neck stiffness or any worsening symptoms. Counseled patient that this illness should run its natural course in 4-7 days [id number] DELFINO De Guzman [facility] [place] [address] [facility] [address] [place] [address] 05/21/2024 05:13:30 05/21/2024 11:18:26 Acute bronchitis [id number] J20.9 URI planDiffer ential Diagnosis: Acute bacterial rhinosinus itis vs viral URI vs bronchitis A: bronchitis suspected. Diagnosis and treatment plan discussed with patient using shared decision making. Patient voices understand ing and agrees with treatment plan. P: Use advair, albuterol. Follow up with [facility] or your doctor in 5 days if not better. Go to the ER immediatel y if you develop fever higher than 103, severe headache, neck stiffness or any worsening symptoms. Counseled patient that this illness should run its natural course in 4-7 daysrecomm end test prior to taking the promethazi ne syrup Health Concerns Section Related Observation LastModified by Organization Detai ls LastModified Time None Recorded Concern Status LastModified by Organization Details LastModified Time None Recorded Advance Directives Directive None Recorded Payers Insurance Date Sequence Insurance Name Policy Number Policy Whitney Covered Member ID Whitney Member ID Guarantor Name 06/22/2024 1 [employer] [id number] Yu Tupy [id number] Yu Tupy 05/21/2024 [employer] [id number] Yu Tupy [id number] Yu Tupy 05/16/2024 2 *SELF PAY* [id number] Yu Tupy [id number] Yu Tupy 05/16/2024 1 *SELF PAY* Te liudmila Tupy Notes Date Note Type Note Provider Name and Address Organization Details Recorded Time 4 text/html Call connected, patient greeted, introduced myself as a Nurse Practitioner, identity/location confirmed, telephone number verified, telemedicine limitations reviewed, verbal consent obtained, allergies reviewed, PMH, social hx and family hx reviewed. Prior visits reviewed before visit. Pt is a 28yo WF who is c/o left eye discharge, pain and swelling. Onset was today. Sushma Walton NP 1 [facility] [address], [place], [address], [place] - [facility] 05/16/2024 22:50:57 4 text/html Patient Valorie presents with persistent cough and respiratory symptoms. Patient denies current fever. No allergies reported. Patient reports symptoms have been lingering while other family members have improved. Denies severe cough leading to vomiting. Patient appears generally uncomfortable but is not reporting severe fatigue or high fevers. No report of being bedridden.Patient name , location, and phone number confirmed. Limitations of telemedicine evaluations reviewed, all questions answered, and verbal consent obtained to treat via secure video telemedicine interaction. Clinician attests that the clinician is physically located in the following state at the time of the visit: [place] Patient's current location is: home address on file (home/workplace/other address) in [place] DELFINO Orozco 1 [facility] [address] [place] [address], [address], [facility] - [facility] 05/19/2024 06:31:43 4 text/html URI/SINUSPatient greeted. Patient , location, and phone number confirmed. Verbal consent obtained to treat this patient via the telemedicine/video platform. Patient/parent understands that there are limitations to my evaluation.Clinician attests they are physically located in the following [place] at the time of visit: [place]: cough History of Present Illness:28 yo female with symptoms for 10 daysBegan with cough, congestion, feversPatient reports cough persistentDenies dyspnea, no painful respirationsPatient has tried azithromycin, tessalonPatient exposed to sick contactsno known contact with COVID -19 PUI/positive individualpt was seen by and was given z pack and still has coughing fits which keep her up LydiaDELFINO Savage 1 [facility] [address], [address], [facility] - [facility] 05/21/2024 03:20:34 4 text/html URI/SINUSPatient greeted. Patient , location, and phone number confirmed. Verbal consent obtained to treat this patient via the telemedicine/video platform. Patient/parent understands that there are limitations to my evaluation.Clinician attests they are physically located in the following [place] at the time of visit: [place]: cough History of Present Illness:28 yo female with symptoms for 10 days. Pt was seen earlier tonight and was given promethazine syrup, advair and albuterol and has some questions about medicationsPt states she thought about it and there is a possibility she could be but very early.Began with cough, congestion, feversPatient reports cough persistentDenies dyspnea, no painful respirationsPatient has tried azithromycin, tessalonPatient exposed to sick contactsno known contact with COVID -19 PUI/positive individualpt was seen by [facility] and was given z pack and still has coughing fits which keep her up DELFINO De Guzman [address] [place] [address], [address], [place] - [facility] 05/21/2024 05:21:44 OBGyn Episode No OBEpisode recorded.
--- OUTSIDE RECORDS SUMMARY | 2024-11-22 15:57 | XMS_ITS | Data Portability ---
Author Organization [place] - [facility] , [facility] Address [address] [place] [address] Assessment Encounter Date Assessment Date Assessment LastModified by Organization Details LastModified Time 05/19/2024 05/19/2024 Assessment: 1. Upper Respiratory Infection with persistent cough - likely viral with possible secondary bacterial infection Plan: 1. Prescribed antibiotic - sent to [facility] pharmacy 2. Offered prescription cough medication (Teslon [...] or fail to improve within expected timeframe [email or web address] Not available 05/19/2024 06:31:34 Plan of Treatment Reminders Order Date Submit Date Provider Last Modified By Organization Details Last Modified Time Details Appointments None recorded. Lab None recorded. Referral None recorded. Procedures None recorded. Surgeries None recorded. Imaging None recorded. Medication Orders promethazin e-DM 6.25 mg-15 mg/5 mL oral syrup 2023 [facility] [address], [address] [place], [address], 4 03:20:51 albuterol sulfate HFA 90 mcg/actuati on aerosol inhaler 2023 [facility] [address], [address] [place], [address], 4 03:20:51 Advair Diskus 250 mcg-50 mcg/dose powder for inhalation 2023 [facility] [address], [address] [place], [address], 03:20:52 azithromyci n 250 mg tablet 2023 [facility] [address], [address] [place], [address], 06:27:03 benzonatate 200 mg capsule 2023 [facility] [address], [address] [place], [address], 06:28:17 ofloxacin 0.3 % eye drops 2023 [facility][id number], [address], [id number], 22:50:45 Patient TargetsNo targets recorded. Patient Instructions Encounter Date Encounter Id Patient Instructions Last Modified By Organization Details Last Modified Time 05/16/2024 [id number] pinkeye: care instructions [email or web address] Not available 05/16/2024 22:50:34 05/19/2024 [id number] upper respirator y infection (cold): care instructions [email or web address] Not available 05/19/2024 06:26:51 05/21/2024 [id number] bronchitis: care instructions [email or web address] Not available 05/21/2024 05:21:36 05/21/2024 [id number] bronchitis: care instructions [email or web address] Not available 05/21/2024 03:20:26 Reason for Referral [...] SNOMED-CT Code Diagnosis ICD10 Code Diagnosis Note [id number] Summer MARYCHUY Walton [facility] [place] [address] [address] 05/16/2024 22:46:43 05/17/2024 04:50:55 Acute conjunctivitis [id number] H10.32 [id number] DELFINO Orozco [facility] [place] [address] [address] 05/19/2024 06:24:09 05/19/2024 12:29:38 Acute upper respiratory infection 56412149 J06.9 [id number] DELFINO De Guzman [facility] [place] [address] [address] 05/21/2024 03:12:00 05/21/2024 09:19:24 Acute bronchitis [id number] J20.9 URI planDiffer ential Diagnosis: Acute bacterial [...] run its natural course in 4-7 days [id number] DELFINO De Guzman [facility] [place] [address] [facility] [address] [place] [address] 05/21/2024 05:13:30 05/21/2024 11:18:26 Acute bronchitis 74530449 J20.9 URI planDiffer ential Diagnosis: Acute bacterial [...] Whitney Member ID Guarantor Name 06/22/2024 1 [facility] [employer] [employer] [id number] Yu Tupy [id number] 52 Yu Tupy 05/21/2024 [facility] [employer] [id number] Yu Tupy [id number] Yu Tupy 05/16/2024 2 *SELF PAY* [id number] Yu Tupy [id number] Yu Tupy 05/16/2024 1 *SELF PAY* [...] Onset was today. Sushma Walton NP 1 [facility] [address], [place], [address], [place] - [facility] 05/16/2024 22:50:57 4 [...] state at the time of the visit: [place] Patient's current location is: home address on file (home/workplace/other address) in [place] DELFINO Orozco 1 [facility] [address] [place] [address], [address], [facility] - [facility] 05/19/2024 06:31:43 4 text/html [...] which keep her up LydiaDELFINO Savage 1 [facility] [address], [place], [address], [facility] - [facility] 05/21/2024 03:20:34 4 text/html [...] which keep her up DELFINO De Guzman [address] [place] [address], [place], [address], [place] - [facility] 05/21/2024 05:21:44 OBGyn Episode No OBEpisode recorded.
--- OUTSIDE RECORDS SUMMARY | 2024-11-22 15:57 | XMS_ITS | Encounter Summary ---
Author Organization [facility] Address [address] [place] [address] Care Team Providers Care Finish Machine Tender Name Role Phone Laureano Bennett MD Primary Care Provider [phone] Laureano Bennett MD Unavailable [phone] Unavailable [phone] Encounter Details Date Type Department Care Team ([facility] st Contact Info) Description 01/14/2023 [facility] Advice [address] [phone] Laureano Bennett MD [address] [place] [address] Social History Tobacco Use Types Packs/Day [...] documented as of this encounter Care Teams Finish Machine Tender Relationship Specialty Start Date End Date Laureano Bennett MD [address] [place] [address] PCP - General Family Medicine 07/07/20 [place] [address] [place] [address] Assigned PCP 08/14/[address] [facility] [place] [address] [address] [address] Functional Support Analyst Dietitian, Registered 06/14/23 documented as of this encounter
--- OUTSIDE RECORDS SUMMARY | 2024-11-22 15:57 | XMS_ITS | Encounter Summary ---
Author Organization [facility] Address [address] [place] [address] Care Team Providers Care Paint Mixer Hand Name Role Phone Laureano Bennett MD Primary Care Provider [phone] Laureano Bennett MD Unavailable [phone] Unavailable [phone] Encounter Details Date Type Department Care Team ([facility] st Contact Info) Description 01/05/2023 [facility] [place]ice [address] [phone] Laureano Bennett MD [address] [place] [address] Social History Tobacco Use Types Packs/Day [...] documented as of this encounter Care Teams Paint Mixer Hand Relationship Specialty Start Date End Date Laureano Bennett MD [address] [place] [address] PCP - General Family Medicine 07/07/20 [place] [address] [place] [address] Assigned PCP 08/14/[address] [facility] [place] [address] [place] [address] Oncology Account Specialist Dietitian, Registered 06/14/23 documented as of this encounter
[2024-11-22 15:59] VITALS: BP 135/80; PULSE 54; RESP 16; TEMP 36.9; O2SAT 99; BMI 26.1
--- NOTE | 2024-11-22 16:35 | CRLHL7_ITS ---
For Patients: As a result of the Century Cures Act, medical imaging exams and procedure reports are released immediately into your electronic medical record. You may view this report before your referring provider. If you have questions, please contact your health care provider. INDICATION: Left leg pain, swelling, bilateral varicosities TECHNIQUE: Ultrasound venous duplex bilateral lower extremities. Real-time vang-scale (B mode 2D), color Doppler, and spectral Doppler imaging were performed with compression and augmentation. COMPARISON: None FINDINGS: Deep vein: The bilateral common femoral, femoral, popliteal, and visualized calf veins are fully compressible, demonstrate normal color flow, and normal response to mechanical augmentation. The Duplex Doppler waveforms are normal in appearance. Superficial vein: The visualized greater saphenous and superficial veins of the leg and calf are unremarkable. Soft tissue: No masses or cysts are identified. No adenopathy is seen. IMPRESSION: 1. No sonographic evidence of acute deep venous thrombosis seen in either lower extremities. Dictated by: Sunny Weber MD @ 11/22/2024 18:02:53 (Electronically Signed)
--- NOTE | 2024-11-22 17:10 | ED.GENADULT ---
HPI - General Adult General Date Seen: 11/22/24 Chief complaint: Extremity Pain/Injury, Lower Stated complaint: Painful veins, tingling, numbness Time Seen by Provider: 11/22/24 16:19 Source: patient Mode of arrival: ambulatory Limitations: no limitations History of Present Illness HPI narrative: This delightful 29-year-old female presents here for evaluation of left leg swelling, and varicosities of her left leg, she has noted today there was leg seems more swollen she has no varicosities she is 24 weeks , and since her 1st she has got progressively more varicosities she has a spot on her left upper leg that feels a little bit more tender. She says she has had no shortness of breath, chest pain, presyncope associated with this she has never had a DVT noted in the past no history of any significant chest pain. Related Data Home Medications ?Medication ?Instructions ?Recorded ?Confirmed vits no.126-ferrous fum 1 tab PO QDAY 07/21/23 10/29/24 28 mg iron-folic acid 800 mcg tablet (Classic ) ondansetron 8 mg disintegrating 4 mg PO Q8H 07/28/23 10/29/24 tablet creatine monohydrate 5,000 mg oral mg PO 07/26/24 10/29/24 powder packet doxylamine succinate 25 mg tablet 25 mg PO QHS PRN 07/26/24 10/29/24 (Unisom (doxylamine)) protein (Ensure High Protein oral ea PO 07/26/24 10/29/24 powder) omega 3,5,6,7,9 combination no.1 cap PO 08/21/24 10/29/24 700 mg-salmon oil 1,500 mg capsule (Complete Pioneer) insulin glargine 100 unit/mL 3 unit subcut QPM 10/01/24 10/29/24 subcutaneous solution (Lantus U-100 Insulin) insulin NPH isoph U-100 human 100 unit subcut 11/22/24 unit/mL subcutaneous suspension (Humulin N NPH U-100 Insulin (isophane susp)) insulin lispro 100 unit/mL 11/22/24 subcutaneous solution Previous Rx's ?Medication ?Instructions ?Recorded acetaminophen 500 mg tablet 1,000 mg (2 x 500 mg) PO Q6H PRN 08/05/23 #0 tabs ondansetron 4 mg disintegrating 4 mg PO Q6-8H PRN nausea and 07/26/24 tablet vomiting #30 tabs Allergies Allergy/AdvReac Type Severity Reaction Status Date / Time No Known Drug Allergies Allergy Verified 10/29/24 08:27 Review of Systems Status of ROS: Reports: 10 or more systems reviewed and unremarkable except as noted in History and below PFSH PFSH Medical History Gestational diabetes mellitus (GDM) requiring insulin ?O24.414 - Gestational diabetes mellitus in , insulin controlled (ICD-10) Pelvic floor dysfunction in female (07/10/20) ?M62.89 - Other specified disorders of muscle (ICD-10) Dermatitis (07/10/20) ?L30.9 - Dermatitis, unspecified (ICD-10) Dyspareunia, female (07/10/20) ?N94.10 - Unspecified dyspareunia (ICD-10) Social History What is your current living situation?: I presently have a place to live Problems where you live: no known problems In the past 12 months, utilities in danger of being shut off: no In past 12 months, lack of transportation kept you from medical appts, meetings, work, or getting things needed for daily living: no In the past 12 mos, have been you worried that your food would run out before you had money to buy more?: never true In the past 12 mos, the food you bought just didn't last and you didn't have money to buy more?: never true Smoking Status: Never smoker How often do you have a drink containing alcohol: never How often do you have six or more drinks on one occasion: Never AUDIT-C Alcohol total score: 0 Non-prescribed substance use: denies use How often does anyone, including family, friends and others, physically hurt you: never How often does anyone, including family, friends and others, insult or talk down to you: never How often does anyone, including family, friends and others, threaten you with harm: never How often does anyone, including family, friends and others, scream or curse at you: never Exam Narrative: Exam Narrative: On examination she is in absolutely no distress clearly . Examination of her legs bilaterally showed little bit more swelling left versus right, there is no pitting edema, she moves her leg through full range of motion he has full extension flexion, popliteal fossa feels clear. She does have varicosities of her left and right leg. Notable. Const: Vital Signs, click to edit/add: Vital Signs - 24 hr 11/22/24 15:59 11/22/24 17:48 Temperature 98.4 F Pulse Rate 70 Pulse Rate [Pulse Oximeter] 54 L Respiratory Rate 16 16 Blood Pressure 124/76 Blood Pressure [Ri ght Upper Arm] 135/80 Pulse Oximetry 99 99 Oxygen Delivery Me thod Room Air Room Air Documenting provider has reviewed patient's vital signs: yes Course Course ED Course: Discussed with the patient she has no evidence of DVT, varicosities are fairly common during and can tend to worsen, Zane stockings are helpful for this. Vital Signs Vital signs: Initial Vital Signs Temperature 98.4 F 11/22/24 15:59 Temperature Source Temporal Artery Scan 11/22/24 15:59 Pulse Rate 54 L 11/22/24 15:59 Respiratory Rate 16 11/22/24 15:59 Blood Pressure 135/80 11/22/24 15:59 Blood Pressure Mean 98 11/22/24 15:59 Blood Pressure Position Sitting 11/22/24 15:59 Pulse Oximetry 99 11/22/24 15:59 Oxygen Delivery Method Room Air 11/22/24 15:59 Vital Signs Temperature 98.4 F 11/22/24 15:59 Pulse Rate 54 L 11/22/24 15:59 Respiratory Rate 16 11/22/24 15:59 Blood Pressure 135/80 11/22/24 15:59 Pulse Oximetry 99 11/22/24 15:59 Oxygen Delivery Method Room Air 11/22/24 15:59 Temperature 98.4 F 11/22/24 15:59 Pulse Rate 70 11/22/24 17:48 Respiratory Rate 16 11/22/24 17:48 Blood Pressure 124/76 11/22/24 17:48 Pulse Oximetry 99 11/22/24 17:48 Oxygen Delivery Method Room Air 11/22/24 17:48 Medical Decision Making MDM Narrative Medical decision making narrative: Do agree with her we would do a bilateral ultrasound to rule out any DVTs, this may be just her varicosities given her problem, if that is negative then I think we can safely discharge her. Imaging Data Bilateral leg ultrasound: Attestation: I have reviewed the pertinent imaging results. Radiologist's impression: [address] [address] Diagnostic Imaging Report Patient: Yu Renee MR#: [id number] : 1995 Acct:[id number] Loc: ED Service Date: 11/22/[address]: Ordering Physician: Saleem Spears M.D. Date of Service: 11/22/24 Procedure(s): US venous LE BI Accession Number(s): [id number] cc: Provider,Not a Local; Saleem Spears M.D.~ For Patients: As a result of the Cures Act, medical imaging exams and procedure reports are released immediately into your electronic medical record. You may view this report before your referring provider. If you have questions, please contact your health care provider. INDICATION: Left leg pain, swelling, bilateral varicosities TECHNIQUE: Ultrasound venous duplex bilateral lower extremities. Real-time vang-scale (B mode 2D), color Doppler, and spectral Doppler imaging were performed with compression and augmentation. COMPARISON: None FINDINGS: Deep vein: The bilateral common femoral, femoral, popliteal, and visualized calf veins are fully compressible, demonstrate normal color flow, and normal response to mechanical augmentation. The Duplex Doppler waveforms are normal in appearance. Superficial vein: The visualized greater saphenous and superficial veins of the leg and calf are unremarkable. Soft tissue: No masses or cysts are identified. No adenopathy is seen. IMPRESSION: 1. No sonographic evidence of acute deep venous thrombosis seen in either lower extremities. Dictated by: Sunny Weber MD @ 11/22/2024 18:02:53 (Electronically Signed) Discharge Plan Discharge Clinical Impression: Varicose veins during Patient Disposition: Home w/ Parent or Adult Condition: Stable Instructions: Endovenous Ablation (DC) Additional Instructions: My has the same issue, she has been bugging me get that endovenous ablation test to get rid of them, once you finish having babies, you could consider getting that done, most insurances we found do not pay for it, at least until you try will be called Zane yakov. These can help to get rid of some of the fluid, and prevent worsening of that. Good luck with the . Activity Level: Light activity Discharge Diet: Regular Prescriptions: No Action Classic 28 mg iron- 800 mcg tablet 1 tab PO QDAY ondansetron 8 mg tablet,disintegrating 4 mg PO Q8H Unisom (doxylamine) 25 mg tablet 25 mg PO QHS PRN creatine monohydrate 5,000 mg powder in packet PO protein [Ensure High Protein] Powder PO ondansetron 4 mg tablet,disintegrating 4 mg PO Q6-8H PRN (Reason: nausea and vomiting) Qty: 30 0RF Complete Pioneer 700-1,500 mg-mg capsule PO insulin glargine [Lantus U-100 Insulin] 100 unit/mL solution 3 unit subcut QPM acetaminophen 500 mg Tablet 1,000 mg PO Q6H PRNQty: 0 0RF Humulin N NPH U-100 Insulin 100 unit/mL suspension SUBCUT Patient Comments: INJECT 11 UNITS SUBCUTANEOUSLY DAILY AT BEDTIME. INCREASE INSTRUCTED DISCARD VIAL AFTER 31 DAYS OF OPENING insulin lispro 100 unit/mL solution Patient Comments: USE 2 UNITS WITH SUPPER ONLY. UP T0 2 UNITS DAILY. DISCARD VIAL 28 DAYS AFTER INITIAL USE Follow Up/Referrals: Provider,Not a Local [Primary Care Provider, Family Practice] Stand Alone Forms: [facility] Info Instructions
[2024-11-22 17:48] VITALS: BP 124/76; PULSE 70; RESP 16; O2SAT 99
== END 2024-11-22 18:22 | disposition home or self-care (01) ==
PROVIDERS: Emergency Provider Family Medicine
DX: O22.02 Varicose veins of lower extremity in pregnancy, second trimester (principal); I83.892 Varicose veins of left lower extremity with other complications; Z3A.24 24 weeks gestation of pregnancy
CPT/HCPCS: 93970; 99283; 99284

== ENCOUNTER 2024-12-12 14:44 | Outpatient (CLI) | payer BC, SELFPAY ==
--- OUTSIDE RECORDS SUMMARY | 2024-12-12 14:47 | XMS_ITS ---
Author Organization [place] Address [address] [place] [address] Care Team Providers Care Plastics Fitter Name Role Phone Laureano Bennett MD Primary Care Provider [phone] Laureano Bennett MD Unavailable Eugenie Zee RD Unavailable [phone] Diabetes Self-Management Education Status:Identified (Enrolling) Start date:06/14/2023 Continued Care and Services Coordination
--- OUTSIDE RECORDS SUMMARY | 2024-12-12 14:47 | XMS_ITS | Encounter Summary ---
Author Organization [place] Address [address] [place] [address] Care Team Providers Care Soft Work Wrapper Examiner Name Role Phone Laureano Bennett MD Primary Care Provider [phone] Laureano Bennett MD Unavailable [phone] Unavailable Reason for Visit * Reason Onset Date Comments MyChart Communication 02/20/2023 Encounter Details Date Type Department Care Team ([facility] st Contact Info) Description 02/20/2023 MyC Medical Advice [address] [phone] Laureano Bennett MD [address] [place] [address] MyChart Communication Social History Tobacco Use [...] sent Awaiting reply Megha Berg RN, BSN [facility] Triage documented in this encounter Plan of Treatment Not on file documented as of this encounter Visit Diagnoses Not on filedocumented in this encounter Additional Health Concerns Assessment Noted Time PHQ-9 Depression Total Score: 12 023 9:01 AM CDT documented as of this encounter Care Teams Soft Work Wrapper Examiner Relationship Specialty Start Date End Date Laureano Bennett MD [address] [place] [address] PCP - General Family Medicine 07/07/20 Laureano Bennett MD [address] [place] [address] Assigned PCP 08/14/[address] [place] [address] Bander And Cellophaner Machine Helper Dietitian, Registered 06/14/23 documented as of this encounter
--- OUTSIDE RECORDS SUMMARY | 2024-12-12 14:47 | XMS_ITS | Clinical Summary ---
Author Organization [facility] Address [address] [place] [address] Care Team Providers Care Leak Inspector Name Role Phone Donna Rae LOCO Primary Care Provider [phone] Allergies No known active allergies Medications Xrgsicqu-Ua-Fbc- Fe-FA ( VITAMIN) tab tablet Take 1 tablet by mouth once daily. 0 06/01/2018 Active Qltxu-8-NPS-EPA- Fish Oil (FISH OIL) 1,000 mg (120 mg-180 mg) cap Take by mouth. 0 06/01/2018 Active Active Problems Patient Care Coordination No te Formatting of this note migh t be different from the original. 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 Blood BLOOD SPECIMEN / Unknown Venipuncture / Unknown 01/18/2020 2:47 PM CDT 01/18/2020 2:51 PM CDT Evelin Santoyo CPM SEND OUTS Final Result [facility] [address], [place] [address], [place] [phone] * ANTI HIV 1/2 (01/18/2020 2:47 PM CDT) HIV-1/HIV-2 ANTIBODY Nonreactive Nonreactive 01/18/2020 4:26 PM CDT [facility] Blood BLOOD SPECIMEN / Unknown Venipuncture / Unknown 01/18/2020 2:47 PM CDT 01/18/2020 2:51 PM CDT Evelin Santoyo CPM SEND OUTS Final Result [facility] [address] [place] [address], [place] [phone] from Last 3 Months or Most Recently Relevant to Health Maintenance Insurance [place] [id number] [employer] [place] Care Teams Leak Inspector Relationship Specialty Start Date End Date Donna Rae CNM [address] [place] [address] PCP - General Certified Nurse Run Boat Operator 10/29/19
--- OUTSIDE RECORDS SUMMARY | 2024-12-12 14:47 | XMS_ITS | Encounter Summary ---
Author Organization [place] Address [address] [place] [address] Care Team Providers Care Drilling Contractor Name Role Phone Laureano Bennett MD Primary Care Provider [phone] Laureano Bennett MD Unavailable [phone] Unavailable [phone] Reason for Visit * Reason Onset Date Comments Derm Problem 02/20/2024 Encounter Details Date Type Department Care Team (Late st Contact Info) Description 02/20/2024 MyC Medical Advice [address] [phone] Laureano Bennett MD [address] [place] [address] Derm Problem Social History Tobacco Use [...] in an abandoned building, in an overnight prison, or couch-surfing.) Yes 06/14/2023 Are you worried [...] Total Score: 0 05/17/20 23 9:06 AM SULKY DRIVER documented as of this encounter Care Teams Drilling Contractor Relationship Specialty Start Date End Date Laureano Bennett MD [address] [place] [address] PCP - General Family Medicine 07/07/20 Laureano Bennett MD [address] [place] [address] Assigned PCP 08/14/[address] [place] [address] [place] [address] Surface Supply Breathing Apparatus Dietitian, Registered 06/14/23 documented as of this encounter
--- OUTSIDE RECORDS SUMMARY | 2024-12-12 14:47 | XMS_ITS | Encounter Summary ---
Author Organization [facility] Address [address] [place] [address] Care Team Providers Care Printing Machine Mechanic Name Role Phone Laureano Bennett MD Primary Care Provider [phone] Laureano Bennett MD Unavailable [phone] Unavailable [phone] Reason for Visit * Reason Onset Date Comments MyChart Communication 03/31/2023 Encounter Details Date Type Department Care Team ([facility] st Contact Info) Description 03/31/2023 MyC Medical Advice [address] [phone] Laureano Bennett MD [address] [place] [address] MyChart Communication Social History Tobacco Use [...] in an overnight [facility]p, or couch-surfing.) Yes 03/10/2023 Are you worried [...] non detailed VM Megha Berg RN, BSN [place] Triage * Telephone Encounter - Laureano Bennett [...] for review too Megha Berg RN, BSN [facility] Triage documented in this encounter Plan of Treatment Not on file documented as of this encounter Visit Diagnoses Not on filedocumented in this encounter Additional Health Concerns Assessment Noted Time PHQ-9 Depression Total Score: 12 023 9:01 AM CDT documented as of this encounter Care Teams Printing Machine Mechanic Relationship Specialty Start Date End Date Laureano Bennett MD [address] [place] [address] PCP - General Family Medicine 07/07/20 Laureano Bennett MD [address] [place] [address] Assigned PCP 08/14/[address] [facility] [address] [place] [address] Ground Service Equipment Mechanic Dietitian, Registered 06/14/23 documented as of this encounter
--- OUTSIDE RECORDS SUMMARY | 2024-12-12 14:47 | XMS_ITS | Encounter Summary ---
Author Organization [place] Address [address] [place] [address] Care Team Providers Care Transitions Manager Rn Name Role Phone Laureano Bennett MD Primary Care Provider Laureano Bennett MD Unavailable [phone] Laureano Bennett MD Unavailable [phone] Unavailable [phone] Encounter Details Date Type Department Care Team (Late st Contact Info) Description 09/19/2020 [facility] Medical Advice [address] [phone] Rikki Auguste RN Social History Tobacco Use [...] on filedocumented in this encounter Care Teams Transitions Manager Rn Relationship Specialty Start Date End Date Laureano Bennett MD [address] [place] [phone] PCP - General Family Medicine 07/07/20 Laureano Bennett MD [address] [place] [address] Assigned PCP 06/12/20 06/04/22 Laureano Bennett MD [address] [facility] [place] [place] [address] Assigned PCP 08/14/[address] [place] [address] [address] [place] [address] Tree Shear Operator Dietitian, Registered 06/14/23 documented as of this encounter
--- OUTSIDE RECORDS SUMMARY | 2024-12-12 14:47 | XMS_ITS | Encounter Summary ---
Author Organization [place] Address [address] [place] [address] Care Team Providers Care Striper Machine Name Role Phone Laureano Bennett MD Primary Care Provider Laureano Bennett MD Unavailable [phone] Unavailable [phone] Reason for Visit * Reason Onset Date Comments MyChart Communication 02/27/2024 Encounter Details Date Type Department Care Team (Late st Contact Info) Description 02/27/2024 MyC Medical Advice [address] [phone] Laureano Bennett MD [address] [place] [address] MyChart Communication Social History Tobacco Use [...] an abandoned building, in an overnight senior living, or couch-surfing.) Yes 06/14/2023 Are you worried [...] documented as of this encounter Care Teams Striper Machine Relationship Specialty Start Date End Date Laureano Bennett MD [address] [place] [address] PCP - General Family Medicine 07/07/20 Laureano Bennett MD [address] [place] [address] Assigned PCP 08/14/[address] [facility] [address] [place] [address] Overlock Elastic Attacher Dietitian, Registered 06/14/23 documented as of this encounter
--- OUTSIDE RECORDS SUMMARY | 2024-12-12 14:47 | XMS_ITS | Encounter Summary ---
Author Organization [place] Address [address] [place] [address] Care Team Providers Care Home Demonstrator Name Role Phone Laureano Bennett MD Primary Care Provider [phone] Laureano Bennett MD Unavailable [phone] Unavailable [phone] Encounter Details Date Type Department Care Team ([facility] st Contact Info) Description 10/27/2024 MyC Medical Advice [address] [phone] Laureano Bennett MD [address] [place] [address] Social History Tobacco Use Types Packs/Day [...] re latives? Once a week 04/04/2024 Attends [employer] Services Not on file 04/04 Active Member of Clubs or Organizations Not on f ile 04/04/2024 Attends Club or Organization Meetings Not on mesha e 04/04/2024 Marital Status Not on file 04/04/2024 PHQ-2 Answer Date Recorded PHQ-2 Score 0 07/10/2024 [facility] - Occupational Stress Questionnaire Answer Date [...] in an abandoned building, in an overnight usp, or couch-surfing.) Yes 04/04/2024 Are you worried [...] to review and advise. Regina Candelario RN [place] Triage documented in this encounter Plan of Treatment Not on file documented as of this encounter Visit Diagnoses Not on filedocumented in this encounter Additional Health Concerns Assessment Noted Time PHQ-9 Depression Total Score: 5 05/11/20 24 8:45 AM METAL MODEL MAKER documented as of this encounter Care Teams Home Demonstrator Relationship Specialty Start Date End Date Laureano Bennett MD [address] [place] [address] PCP - General Family Medicine 07/07/20 Laureano Bennett MD [address] [place] [address] Assigned PCP 08/14/[address] [facility] [place] [address] [place] [address] Grounding Engineer Dietitian, Registered 06/14/23 documented as of this encounter
--- OUTSIDE RECORDS SUMMARY | 2024-12-12 14:48 | XMS_ITS | Encounter Summary ---
Author Organization [place] Address [address] [place] [address] Care Team Providers Care Roll Tender Name Role Phone Laureano Bennett MD Primary Care Provider [phone] Laureano Bennett MD Unavailable [phone] Unavailable [phone] Encounter Details Date Type Department Care Team ([facility] st Contact Info) Description 01/14/2023 [facility] Medical Advice [address] [phone] Laureano Bennett MD [address] [place] [address] Social History Tobacco Use Types Packs/Day [...] documented as of this encounter Care Teams Roll Tender Relationship Specialty Start Date End Date Laureano Bennett MD [address] [place] [address] PCP - General Family Medicine 07/07/20 [place] [address] [place] [address] Assigned PCP 08/14/[address] [facility] [address] [place] [address] Gas Desulfurizer Dietitian, Registered 06/14/23 documented as of this encounter
--- OUTSIDE RECORDS SUMMARY | 2024-12-12 14:48 | XMS_ITS | Encounter Summary ---
Author Organization [place] Address [address] [place] [address] Care Team Providers Care Manager Software Development Name Role Phone Laureano Bennett MD Primary Care Provider [phone] Laureano Bennett MD Unavailable [phone] Unavailable [phone] Encounter Details Date Type Department Care Team ([facility] st Contact Info) Description 01/05/2023 [facility] Medical Advice [address] [phone] Laureano Bennett MD [address] [place] [address] Social History Tobacco Use Types Packs/Day [...] as of this encounter Care Teams Manager Software Development Relationship Specialty Start Date End Date Laureano Bennett MD [address] [place] [address] PCP - General Family Medicine 07/07/20 [place] [address] [place] [address] Assigned PCP 08/14/[address] [facility] [place] [address] [place] [address] Hearing Therapy Teacher Dietitian, Registered 06/14/23 documented as of this encounter
--- OUTSIDE RECORDS SUMMARY | 2024-12-12 14:48 | XMS_ITS | Encounter Summary ---
Author Organization [place] Address [address] [place] [address] Care Team Providers Care Planner Scheduler Name Role Phone Laureano Bennett MD Primary Care Provider [phone] Laureano Bennett MD Unavailable [phone] Unavailable [phone] Encounter Details Date Type Department Care Team ([facility] st Contact Info) Description 10/31/2024 Orders Only [address] [place] [phone] Laureano Bennett MD [address] [place] [address] Social History Tobacco Use Types Packs/Day [...] re latives? Once a week 04/04/2024 Attends Yarsani Services Not on file 04/04 Active Member of Clubs or Organizations Not on f ile 04/04/2024 Attends Club or Organization Meetings Not on mesha e 04/04/2024 Marital Status Not on file 04/04/2024 PHQ-2 Answer Date Recorded PHQ-2 Score 0 07/10/2024 [facility] - Occupational Stress Questionnaire Answer Date [...] in an abandoned building, in an overnight snf, or couch-surfing.) Yes 04/04/2024 Are you worried [...] Total Score: 5 05/11/20 24 8:45 AM PICCOLOIST documented as of this encounter Care Teams Planner Scheduler Relationship Specialty Start Date End Date Laureano Bennett MD [address] [place] [address] PCP - General Family Medicine 07/07/20 Laureano Bennett MD [address] [place] [address] Assigned PCP 08/14/[address] [place] [address] [employer] Consultant Dietitian, Registered 06/14/23 documented as of this encounter
--- OUTSIDE RECORDS SUMMARY | 2024-12-12 14:48 | XMS_ITS | Encounter Summary ---
Author Organization [place] Address [address] [place] [address] Care Team Providers Care Interior Design Professional Name Role Phone Laureano Bennett MD Primary Care Provider [phone] Laureano Bennett MD Unavailable [phone] Unavailable [phone] Reason for Visit * Reason Comments Medication Refill Encounter Details Date Type Department Care Team ([facility] st Contact Info) Description 11/14/[address] [phone] Laureano Bennett MD [address] [place] [address] Medication Refill Social History Tobacco Use [...] re latives? Once a week 04/04/2024 Attends [employer] Not on file 04/04 Active Member of Clubs or Organizations Not on f ile 04/04/2024 Attends Club or Organization Meetings Not on mesha e 04/04/2024 Marital Status Not on file 04/04/2024 PHQ-2 Answer Date Recorded PHQ-2 Score 0 07/10/2024 [facility] [place] of Occupat ional Health - Occupational Stress [...] in an abandoned building, in an overnight half-way, or couch-surfing.) Yes 04/04/2024 Are you worried [...] Total Score: 5 05/11/20 24 8:45 AM SUPERVISOR QUILTING documented as of this encounter Care Teams Interior Design Professional Relationship Specialty Start Date End Date Laureano Bennett MD [address] [place] [address] [id number] PCP - General Family Medicine 07/07/20 Laureano Bennett MD [address] [place] [address] [id number] Assigned PCP 08/14/[address] [place] [address] [place] [address] Parts Classifier Dietitian, Registered 06/14/23 documented as of this encounter
--- OUTSIDE RECORDS SUMMARY | 2024-12-12 14:48 | XMS_ITS | Data Portability ---
Author Organization [place] - [facility] Address [address] [place] [address] Assessment Encounter Date Assessment Date Assessment LastModified by Organization Details LastModified Time 05/19/2024 05/19/2024 Assessment: 1. Upper Respiratory Infection with persistent cough - likely viral with possible secondary bacterial infection Plan: 1. Prescribed antibiotic - sent to [facility] pharmacy 2. Offered prescription cough medication (Teslon [...] or fail to improve within expected timeframe [email or web address] Not available 05/19/2024 06:31:34 Plan of Treatment Reminders Order Date Submit Date Provider Last Modified By Organization Details Last Modified Time Details Appointments None recorded. Lab None recorded. Referral None recorded. Procedures None recorded. Surgeries None recorded. Imaging None recorded. Medication Orders promethazin e-DM 6.25 mg-15 mg/5 mL oral syrup 2023 [facility], [address] [place], [address], 4 03:20:51 albuterol sulfate HFA 90 mcg/actuati on aerosol inhaler 2023 [facility], [address] [place], [address], 4 03:20:51 Advair Diskus 250 mcg-50 mcg/dose powder for inhalation 2023 [facility], [address] [place], [address], 03:20:52 azithromyci n 250 mg tablet 2023 [facility], [address] [place], [address], 06:27:03 benzonatate 200 mg capsule 2023 [facility], [address] [place], [address], 06:28:17 ofloxacin 0.3 % eye drops 2023 [id number], [address], [phone], 22:50:45 Patient TargetsNo targets recorded. Patient Instructions Encounter Date Encounter Id Patient Instructions Last Modified By Organization Details Last Modified Time 05/16/2024 [id number] pinkeye: care instructions [email or web address] Not available 05/16/2024 22:50:34 05/19/2024 [id number] upper respirator y infection (cold): care instructions [email or web address] Not available 05/19/2024 06:26:51 05/21/2024 [id number] bronchitis: care instructions Not available 05/21/2024 05:21:36 05/21/2024 [id number] bronchitis: care instructions [email or web address] Not available 05/21/2024 03:20:26 Reason for Referral [...] SNOMED-CT Code Diagnosis ICD10 Code Diagnosis Note [id number] Summer MARYCHUY Walton [facility] [place] [address] [address] 05/16/2024 22:46:43 05/17/2024 04:50:55 Acute conjunctivitis 60794357 H10.32 [id number] Les Gill [facility] [place] [address] [address] 05/19/2024 06:24:09 05/19/2024 12:29:38 Acute upper respiratory infection [id number] J06.9 [id number] Lydia Coffey [facility] [place] [address] [address] 05/21/2024 03:12:00 05/21/2024 09:19:24 Acute bronchitis [id number] J20.9 URI planDiffer ential Diagnosis: Acute bacterial [...] run its natural course in 4-7 days [id number] Lydia Coffey, TOP DISTRIBUTION EXECUTIVE [facility] [place] [address] [facility] [address] [place] [address] 05/21/2024 05:13:30 05/21/2024 11:18:26 Acute bronchitis [id number] J20.9 URI planDiffer ential Diagnosis: Acute bacterial [...] Whitney Member ID Guarantor Name 06/22/2024 1 [facility] MEDICA[facility] [id number] Yu Tupy [id number] Yu Tupy 05/21/2024 [facility] [id number] Yu Tupy [id number] Yu Tupy 05/16/2024 2 *SELF PAY* [id number] Yu Tupy [id number] Yu Tupy 05/16/2024 1 *SELF PAY* [...] discharge, pain and swelling. Onset was today. Summer MARYCHUY Walton 1 [facility] [address], [place], [address], [facility] 05/16/2024 22:50:57 4 text/html Patient Valorie presents [...] state at the time of the visit: [place] Patient's current location is: home address on file (home/workplace/other address) in [place] (state) DELFINO Orozco 1 [facility] [address], [place], [address], [facility] 05/19/2024 06:31:43 4 text/html [...] which keep her up LydiaDELFINO Savage 1 [facility] [address], [place], [address], [place] [facility] 05/21/2024 03:20:34 4 text/html [...] has coughing fits which keep her up Lydia Coffey, DELFINO 1 [facility] [address], [place], [address], [place] - [facility] 05/21/2024 05:21:44 OBGyn Episode No OBEpisode recorded.
--- OUTSIDE RECORDS SUMMARY | 2024-12-12 14:48 | XMS_ITS | Data Portability ---
Author Organization [place] - [facility] , [facility] Address [address] [place] [address] Assessment Encounter Date Assessment Date Assessment LastModified by Organization Details LastModified Time 05/19/2024 05/19/2024 Assessment: 1. Upper Respiratory Infection with persistent cough - likely viral with possible secondary bacterial infection Plan: 1. Prescribed antibiotic - sent to [facility] pharmacy 2. Offered prescription cough medication [...] or fail to improve within expected timeframe [email or web address] Not available 05/19/2024 06:31:34 Plan of Treatment Reminders Order Date Submit Date Provider Last Modified By Organization Details Last Modified Time Details Appointments None recorded. Lab None recorded. Referral None recorded. Procedures None recorded. Surgeries None recorded. Imaging None recorded. Medication Orders promethazin e-DM 6.25 mg-15 mg/5 mL oral syrup 2023 [facility]50, [address] [place], [address], 4 03:20:51 albuterol sulfate HFA 90 mcg/actuati on aerosol inhaler 2023 [facility]28, [address] [place], [address], 4 03:20:51 Advair Diskus 250 mcg-50 mcg/dose powder for inhalation 2023 [facility] [address]992, [address] [place], [address], 03:20:52 azithromyci n 250 mg tablet 2023 [facility] [address], [address] [place], [address], 06:27:03 benzonatate 200 mg capsule 2023 [facility] [address], [address] [place], [address], 06:28:17 ofloxacin 0.3 % eye drops 2023 [facility][id number], [address], [id number], 22:50:45 Patient TargetsNo targets recorded. Patient Instructions Encounter Date Encounter Id Patient Instructions Last Modified By Organization Details Last Modified Time 05/16/2024 [id number] pinkeye: care instructions [email or web address] Not available 05/16/2024 22:50:34 05/19/2024 [id number] upper respirator y infection (cold): care instructions Not available 05/19/2024 06:26:51 05/21/2024 [id number] bronchitis: care instructions [email or web address] Not available 05/21/2024 05:21:36 05/21/2024 [id number] bronchitis: care instructions Not available 05/21/2024 03:20:26 [...] SNOMED-CT Code Diagnosis ICD10 Code Diagnosis Note [id number] Summer MARYCHUY Walton [facility] [place] [address] [address] 05/16/2024 22:46:43 05/17/2024 04:50:55 Acute conjunctivitis [id number] H10.32 [id number] Les Gill [facility] [place] [address] [address] 05/19/2024 06:24:09 05/19/2024 12:29:38 Acute upper respiratory infection [id number] J06.9 [id number] Lydia Coffey [facility] [place] [address] [address] 05/21/2024 03:12:00 05/21/2024 09:19:24 Acute bronchitis 14565254 J20.9 URI planDiffer ential Diagnosis: Acute bacterial [...] run its natural course in 4-7 days [id number] Lydia Coffey, CEPHALOMETRIC TECHNICIAN [facility] [place] 2345 [facility] [address] [place] [address] 05/21/2024 05:13:30 05/21/2024 11:18:26 Acute bronchitis [id number] J20.9 URI planDiffer ential Diagnosis: Acute bacterial [...] ID Guarantor Name 06/22/2024 1 [facility] MEDICAID [id number] Yu Tupy [id number] 52 Yu Tupy 05/21/2024 [facility] [id number] Yu Tupy [id number] Yu Tupy 05/16/2024 2 *SELF PAY* [id number] Yu Tupy [id number] Yu Tupy 05/16/2024 1 *SELF PAY* [...] Onset was today. Summer MARYCHUY Walton 1 [facility] [address], [place], [address], [facility] 05/16/2024 22:50:57 4 text/html Patient Valorie presents [...] state at the time of the visit: pr Patient's current location is: home address on file (home/workplace/other address) in [place] DELFINO Orozco 1 [facility] [address], [address], [facility] 05/19/2024 06:31:43 4 [...] LydiaDELFINO Savage 1 [facility] [address], [place], [address], [place] [facility] 05/21/2024 03:20:34 4 [...] keep her up Lydia Coffey, DELFINO 1 [facility] [address], [place], [address], [place] - [facility] 05/21/2024 05:21:44 OBGyn Episode No OBEpisode recorded.
--- OUTSIDE RECORDS SUMMARY | 2024-12-12 14:48 | XMS_ITS | Clinical Summary ---
Author Organization [facility] Address [address] [place] [address] Care Team Providers Care Business Development Associate Name Role Phone Laureano Bennett MD Primary Care Provider [phone] Laureano Bennett MD Unavailable [phone] Unavailable [phone] Allergies No known active allergies Medications [...] Type Department Care Team Description 11/14/[address] [address] Laureano Bennett MD Medication Refill 10/31/2024 Orders Only [address] [phone] Laureano Bennett MD 10/27/[address] [facility] [address] [phone] Laureano Bennett MD from Last 3 Months [...] re latives? Once a week 04/04/2024 Attends Islam Services Not on file 04/04 Active Member of Clubs or Organizations Not on f ile 04/04/2024 Attends Club or Organization Meetings Not on mesha e 04/04/2024 Marital Status Not on file 04/04/2024 PHQ-2 Answer Date Recorded PHQ-2 Score 0 07/10/2024 [facility] [place] of Occupat ional Health - Occupational Stress [...] in an abandoned building, in an overnight alf, or couch-surfing.) Yes 04/04/2024 Are you worried [...] Comments Blood Pressure 110/60 07/10/2024 1:09 PM POWER OPERATOR Pulse 91 07/10/2024 1:09 PM POWER OPERATOR Temperature 36.1 C (97 F) 07/10/2024 1:09 PM POWER OPERATOR Respiratory Rate 16 07/10/2024 1:09 PM POWER OPERATOR Oxygen Saturation 98% 07/10/2024 1:09 PM POWER OPERATOR Inhaled Oxygen Concentration - - Weight 75.5 kg (166 lb 8 oz) 07/10/2024 1:09 PM POWER OPERATOR Height 174 cm (5' 8.5) 07/10/2024 1:09 PM POWER OPERATOR Body Mass Index 24.95 07/10/2024 1:09 PM POWER OPERATOR Plan of Treatment Health Maintenance Due Date Last Done Comments YEARLY PREVENTIVE VISIT 1998 INFLUENZA VACCINE (Season Ended) 2025 ANNUAL REVIEW OF HM ORDERS 02/26/202502/26, 01/04/2023, 07/07/2020 PAP 02/10/2026 02/10/2023 DIABETES SCREENING 05/11/2027 05/11/2024, 11/19/2018 DTAP/TDAP/TD VACCINE (2 - Td or Tdap) 07/04/2033 07/04/2023 ADVANCE CARE PLANNING 11/03/2043 Postpo georgie from 1995 (Patient Declined) ZOSTER VACCINE (1 of 2) 2045 HEPATITIS C SCREENING Discontinued 01/18/2020, 019 CHLAMYDIA SCREENING Discontinued 02/10/2023, 9 HIV SCREENING Completed 02/10/2023, 01/18/2020 RSV VACCINE Discontinued 07/15/2023 PHQ-2 (once per calendar year) Completed 07/10/2024, 05/11/2024, 05/11/2024, Additional history exists COVID-19 VACCINE Discontinued HEPATITIS B VACCINE Discontinued [...] BASIC METABOLIC PANEL Routine 05/11/2024 10:11 AM POWER OPERATOR Screening for diabetes mellitus HIV ANTIGEN ANTIBODY [...] Gluc, K, Na, BUN) (05/11/2024 10:11 AM POWER OPERATOR) Sodium 138 135 - 145 mmol/L 05/12/2024 10:04 AM POWER OPERATOR [facility] Potassium 4.4 3.4 - 5.3 mmol/L 05/12/2024 10:04 AM POWER OPERATOR [facility] Chloride 103 98 - 107 mmol/L 05/12/2024 10:04 AM POWER OPERATOR [facility] Carbon Dioxide (CO2) 28 22 - 29 mmol/L 05/12/2024 10:04 AM POWER OPERATOR [facility] Anion Gap 7 7 - 15 mmol/L 05/12/2024 10:04 AM POWER OPERATOR [facility] Urea Nitrogen 18.4 6.0 - 20.0 mg/dL 05/12/2024 10:04 AM POWER OPERATOR [facility] Creatinine 0.69 0.51 - 0.95 mg/dL 05/12/2024 10:04 AM POWER OPERATOR [facility] GFR Estimate >90 >60 mL/min/1.7 3m2 05/12/2024 10:04 AM POWER OPERATOR [facility] Comment:eGFR calculated us2020 CKD-EPI equation. Calcium 10.0 8.8 - 10.4 mg/dL 05/12/2024 10:04 AM POWER OPERATOR [facility] Comment:Reference intervals for this test were updated on 01/03/2024 to reflect our healthy population more accurately. There may be differences in the flagging of prior results with similar values performed with this method. Those prior results can be interpreted in the context of the updated reference intervals. Glucose 91 70 - 99 mg/dL 05/12/2024 10:04 AM POWER OPERATOR [facility] Blood BLOOD SPECIMEN / Unknown Venipuncture / Unknown 05/11/2024 10:11 AM POWER OPERATOR 05/11/2024 10:11 AM POWER OPERATOR Laureano Bennett MD LAB - BLOOD ORDERABLES Final Result [facility] [place] [facility] [address] [facility], Room [address] [phone] * HIV Antigen Antibody Combo (02/10/2023 9:27 AM CDT) HIV Antigen Antibody Combo Nonreactive Nonreactive 02/10/2023 8:54 PM CDT [facility] DO Comment:HIV-1 p24 Ag & HIV-1 /HIV-2 Ab Not Detected Blood BLOOD SPECIMEN / Unknown Venipuncture / Unknown 02/10/2023 9:27 AM CDT 02/10/2023 9:27 AM CDT Laureano Bennett MD LAB - BLOOD ORDERABLES Final Result [facility]ENDO [facility]Prot/Endo [address] [facility], Room [address] [phone] * CHLAMYDIA TRACHOMATIS PCR (02/10/2023 8:59 AM CDT) Chlamydia trachomatis Negative Negative 02/11/2023 12:02 PM CDT [facility] Comment:A negative result by heating and ventilating worker mediated amplification does not preclude the presence of C. trachomatis infection because results are dependent on proper and adequate collection, absence of inhibitors and sufficient rRNA to be detected. Swab CERVIX UTERI STRUCTURE / Unknown Non-blood Collection / Unknown 02/10/2023 8:59 AM CDT 02/10/2023 9:19 AM CDT us Laureano Bennett MD LAB - MICRO GENERAL ORDERABLE S Final Result [facility] Inf. Diseases Diag. Lab [address] [facility], [address] [place] [phone] [phone] * Pap screen reflex to HPV if [...] of this testing was completed at [facility] 02/14/2023 11:47 AM CDT [facility] Brushing CERVIX UTERI STRUCTURE / Unknown Non-blood Collection / Unknown 02/10/2023 8:29 AM CDT 02/10/2023 9:18 AM CDT us Laureano Bennett MD LAB - MEME AP Final Result [facility] [address] [facility], [address] [place] [address], [facility] [phone] from Last 3 Months or Most Recently Relevant to Health Maintenance [place] [address] Care Teams Business Development Associate Relationship Specialty Start Date End Date Laureano Bennett MD [address] [place] [address] [phone] PCP - General Family Medicine 07/07/20 Laureano Bennett MD [address] [place] [address] [phone] Assigned PCP 08/14/[address] [place] [address] [place] [address] Pick And Shovel Worker Dietitian, Registered 06/14/23
--- OUTSIDE RECORDS SUMMARY | 2024-12-12 14:48 | XMS_ITS | Clinical Summary ---
Author Organization [facility] Address [address] [place] [address] Care Team Providers Care City Bus Driver Name Role Phone Elsewhere, Pcp Primary Care Provider Unavailabl e Source Comments Patient records contain information from all sites at [facility]. For routine questions regarding patient records, call [phone] during business hours, M-F 8:00 AM - 5:00 PM Central Time. Record requests for emergency care only can be directed to [phone] at any time.[facility] Allergies No known active allergies Medications docusate [...] or fever. 90 tablet 2 Active omega 0-pjo-huc-fish oil 1,000 mg (120 mg-180 mg) capsule [...] Tobacco: Never Tobacco Cessation:Counseling Given: Not Answered Comments Unknown Sex and Gender Information Value Date Recorded Sex Assigned at Not on file Legal Sex Female 6:36 PM CDT Gender Identity Not on file Sexual Orientation Not on file Last Filed Vital Signs Vital Sign Reading Time Taken Comments Blood Pressure 120/93 05/21/2024 5:30 AM AUTOMATION MANAGER Pulse 90 05/21/2024 5:58 AM AUTOMATION MANAGER Temperature 36.8 C (98.2 F) 05/21/2024 5:23 AM AUTOMATION MANAGER Respiratory Rate 20 05/21/2024 5:30 AM AUTOMATION MANAGER Oxygen Saturation 97% 05/21/2024 5:58 AM AUTOMATION MANAGER Inhaled Oxygen Concentration - - Weight 75.3 kg (166 lb 0.1 oz) 05/21/2024 5:18 A M AUTOMATION MANAGER Height 175.5 cm (5' 9.09) 05/19/2022 1:41 PM CS T Body Mass Index 24.45 05/19/2022 1:41 PM AUTOMATION MANAGER Plan of Treatment Health Maintenance Due Date Last Done Comments HIV Screening 1995 Hepatitis C Screening 1995 Hepatitis B Vaccines (1 of 3 - 19+ 3-dose series) 2014 COVID-19 Vaccine ( season) 2024 Influenza Vaccine (#1) 2024 Depression [...] patient's age to complete this topic Insurance [facility] C[facility] Advance Directives For more information, please contact: [phone] * Full Code (Latest Code Status on File) Date Activated Date Inactivated Comments 10/30/2021 2:51 AM 10/30/2021 3:16 PM Question Answer Comments Full Code: Not Discussed Due to: Not medically appropriate Care Teams City Bus Driver Relationship Specialty Start Date End Date Elsewhere, Pcp PCP - General Internal Medicine 09/17/22
--- OUTSIDE RECORDS SUMMARY | 2024-12-13 00:35 | XMS_ITS | Clinical Summary ---
Author Organization [place] Address [address] [place] [address] Care Team Providers Care Core Placer Name Role Phone Laureano Bennett MD Primary Care Provider [phone] Laureano Bennett MD Unavailable [phone] Unavailable [phone] Allergies No known active allergies Medications [...] Type Department Care Team Description 11/14/[address] [phone] Laureano Bennett MD Medication Refill 10/31/2024 Orders Only [address] [phone] Laureano Bennett MD 10/27/[address] [facility] [phone] Laureano Bennett MD from Last 3 Months [...] re latives? Once a week 04/04/2024 Attends Yarsanism Services Not on file 04/04 Active Member of Clubs or Organizations Not on f ile 04/04/2024 Attends Club or Organization Meetings Not on mesha e 04/04/2024 Marital Status Not on file 04/04/2024 PHQ-2 Answer Date Recorded PHQ-2 Score 0 07/10/2024 [facility] of Occupat ional Health - Occupational Stress [...] in an abandoned building, in an overnight fci, or couch-surfing.) Yes 04/04/2024 Are you worried [...] Comments Blood Pressure 110/60 07/10/2024 1:09 PM HARBOR DEPARTMENT MANAGER Pulse 91 07/10/2024 1:09 PM HARBOR DEPARTMENT MANAGER Temperature 36.1 C (97 F) 07/10/2024 1:09 PM HARBOR DEPARTMENT MANAGER Respiratory Rate 16 07/10/2024 1:09 PM HARBOR DEPARTMENT MANAGER Oxygen Saturation 98% 07/10/2024 1:09 PM HARBOR DEPARTMENT MANAGER Inhaled Oxygen Concentration - - Weight 75.5 kg (166 lb 8 oz) 07/10/2024 1:09 PM HARBOR DEPARTMENT MANAGER Height 174 cm (5' 8.5) 07/10/2024 1:09 PM HARBOR DEPARTMENT MANAGER Body Mass Index 24.95 07/10/2024 1:09 PM HARBOR DEPARTMENT MANAGER Plan of Treatment Health Maintenance Due [...] BASIC METABOLIC PANEL Routine 05/11/2024 10:11 AM HARBOR DEPARTMENT MANAGER Screening for diabetes mellitus HIV ANTIGEN ANTIBODY [...] Gluc, K, Na, BUN) (05/11/2024 10:11 AM HARBOR DEPARTMENT MANAGER) Sodium 138 135 - 145 mmol/L 05/12/2024 10:04 AM HARBOR DEPARTMENT MANAGER [facility] Potassium 4.4 3.4 - 5.3 mmol/L 05/12/2024 10:04 AM HARBOR DEPARTMENT MANAGER [facility] Chloride 103 98 - 107 mmol/L 05/12/2024 10:04 AM HARBOR DEPARTMENT MANAGER [facility] Carbon Dioxide (CO2) 28 22 - 29 mmol/L 05/12/2024 10:04 AM HARBOR DEPARTMENT MANAGER [facility] Anion Gap 7 7 - 15 mmol/L 05/12/2024 10:04 AM HARBOR DEPARTMENT MANAGER [facility] Urea Nitrogen 18.4 6.0 - 20.0 mg/dL 05/12/2024 10:04 AM HARBOR DEPARTMENT MANAGER [facility] Creatinine 0.69 0.51 - 0.95 mg/dL 05/12/2024 10:04 AM HARBOR DEPARTMENT MANAGER [facility] GFR Estimate >90 >60 mL/min/1.7 3m2 05/12/2024 10:04 AM HARBOR DEPARTMENT MANAGER [facility] Comment:eGFR calculated us2020 CKD-EPI equation. Calcium 10.0 8.8 - 10.4 mg/dL 05/12/2024 10:04 AM HARBOR DEPARTMENT MANAGER [facility] Comment:Reference intervals for this test were updated on 01/03/2024 to reflect our healthy population more accurately. There may be differences in the flagging of prior results with similar values performed with this method. Those prior results can be interpreted in the context of the updated reference intervals. Glucose 91 70 - 99 mg/dL 05/12/2024 10:04 AM HARBOR DEPARTMENT MANAGER [facility] Blood BLOOD SPECIMEN / Unknown Venipuncture / Unknown 05/11/2024 10:11 AM HARBOR DEPARTMENT MANAGER 05/11/2024 10:11 AM HARBOR DEPARTMENT MANAGER Laureano Bennett MD LAB - BLOOD ORDERABLES Final Result [facility] [address] [facility], [address] [phone] * HIV Antigen Antibody Combo (02/10/2023 9:27 AM CDT) HIV Antigen Antibody Combo Nonreactive Nonreactive 02/10/2023 8:54 PM CDT [facility] DO Comment:HIV-1 p24 Ag & HIV-1 /HIV-2 Ab Not Detected Blood BLOOD SPECIMEN / Unknown Venipuncture / Unknown 02/10/2023 9:27 AM CDT 02/10/2023 9:27 AM CDT Luareano Bennett MD LAB - BLOOD ORDERABLES Final Result [facility]END[facility]Endo [address] [facility], [address] [phone] * CHLAMYDIA TRACHOMATIS PCR (02/10/2023 8:59 AM CDT) Chlamydia trachomatis Negative Negative 02/11/2023 12:02 PM CDT [facility] Comment:A negative result by atomic process engineer mediated amplification does not preclude the presence of C. trachomatis infection because results are dependent on proper and adequate collection, absence of inhibitors and sufficient rRNA to be detected. Swab CERVIX UTERI STRUCTURE / Unknown Non-blood Collection / Unknown 02/10/2023 8:59 AM CDT 02/10/2023 9:19 AM CDT us Laureano Bennett MD LAB - MICRO GENERAL ORDERABLE S Final Result [facility] Inf. Diseases Diag. Lab [address] [facility], [address] [place] [phone] [phone] * Pap screen reflex to HPV if [...] component of this testing was completed at [facility] 02/14/2023 11:47 AM CDT [facility] Brushing CERVIX UTERI STRUCTURE / Unknown Non-blood Collection / Unknown 02/10/2023 8:29 AM CDT 02/10/2023 9:18 AM CDT us Laureano Bennett MD LAB - MEME AP Final Result [facility] [address] [facility], [address] [place] [address], [facility] [phone] from Last 3 Months or Most Recently Relevant to Health Maintenance Insurance [employer] [address] Care Teams Core Placer Relationship Specialty Start Date End Date Laureano Bennett MD [address] [place] [address] [phone] PCP - General Family Medicine 07/07/20 Laureano Bennett MD [address] [place] [address] [phone] Assigned PCP 08/14/[address] [place] [address] [place] [address] Barrel Ribs Solderer Dietitian, Registered 06/14/23
--- OUTSIDE RECORDS SUMMARY | 2024-12-13 00:35 | XMS_ITS | Encounter Summary ---
Author Organization [place] Address [address] [place] [address] Care Team Providers Care Television Agent Name Role Phone Laureano Bennett MD Primary Care Provider [phone] Laureano Bennett MD Unavailable [phone] Unavailable [phone] Reason for Visit * Reason Onset Date Comments Derm Problem 02/20/2024 Encounter Details Date Type Department Care Team (Late st Contact Info) Description 02/20/2024 MyC Medical Advice [address] [phone] Laureano Bennett MD [address] [place] [address] Derm Problem Social History Tobacco Use [...] in an overnight alf, or couch-surfing.) Yes 06/14/2023 Are you worried [...] Total Score: 0 05/17/20 23 9:06 AM DROP HAMMER SET UP OPERATOR documented as of this encounter Care Teams Television Agent Relationship Specialty Start Date End Date Laureano Bennett MD [address] [place] [address] PCP - General Family Medicine 07/07/20 Laureano Bennett MD [address] [place] [address] Assigned PCP 08/14/[address] [place] [address] [place] [address] Flattening Machine Operator Dietitian, Registered 06/14/23 documented as of this encounter
--- OUTSIDE RECORDS SUMMARY | 2024-12-13 00:35 | XMS_ITS | Encounter Summary ---
Author Organization [place] Address [address] [place] [address] Care Team Providers Care Briquetting Machine Operator Name Role Phone Laureano Bennett MD Primary Care Provider Laureano Bennett MD Unavailable [phone] Laureano Bennett MD Unavailable [phone] Unavailable [phone] Encounter Details Date Type Department Care Team (Late st Contact Info) Description 09/19/2020 [facility] Medical Advice [address] [phone] Rikki Auguste RN Social History Tobacco Use [...] on filedocumented in this encounter Care Teams Briquetting Machine Operator Relationship Specialty Start Date End Date Laureano Bennett MD [address] [place] [address] [phone] PCP - General Family Medicine 07/07/20 Laureano Bennett MD [address] [place] [address] Assigned PCP 06/12/20 06/04/22 Laureano Bennett MD [address] [facility] [place] [place] [address] Assigned PCP 08/14/[address] [place] [address] [address] [place] [address] Broadcast Producer Dietitian, Registered 06/14/23 documented as of this encounter
--- OUTSIDE RECORDS SUMMARY | 2024-12-13 00:35 | XMS_ITS | Encounter Summary ---
Author Organization [place] Address [address] [place] [address] Care Team Providers Care Pets Salesperson Name Role Phone Laureano Bennett MD Primary Care Provider Laureano Bennett MD Unavailable [phone] Unavailable [phone] Reason for Visit * Reason Onset Date Comments MyChart Communication 03/31/2023 Encounter Details Date Type Department Care Team ([facility] st Contact Info) Description 03/31/2023 MyC Medical Advice [address] [phone] Laureano Bennett MD [address] [place] [address] MyChart Communication Social History Tobacco Use [...] in an abandoned building, in an overnight skilled nursing, or couch-surfing.) Yes 03/10/2023 Are you worried [...] non detailed VM Megha Berg RN, BSN [place] Triage * Telephone Encounter - Laureano Bennett [...] for review too Megha Berg RN, BSN [facility] Triage documented in this encounter Plan of Treatment Not on file documented as of this encounter Visit Diagnoses Not on filedocumented in this encounter Additional Health Concerns Assessment Noted Time PHQ-9 Depression Total Score: 12 023 9:01 AM CDT documented as of this encounter Care Teams Pets Salesperson Relationship Specialty Start Date End Date Laureano Bennett MD [address] [place] [address] PCP - General Family Medicine 07/07/20 Laureano Bennett MD [address] [place] [address] Assigned PCP 08/14/[address] [facility] [place] [address] [place] [address] Financial Agent Dietitian, Registered 06/14/23 documented as of this encounter
--- OUTSIDE RECORDS SUMMARY | 2024-12-13 00:35 | XMS_ITS | Encounter Summary ---
Author Organization [place] Address [address] [place] [address] Care Team Providers Care Onion Topper Name Role Phone Laureano Bennett MD Primary Care Provider Laureano Bennett MD Unavailable [phone] Unavailable [phone] Reason for Visit * Reason Onset Date Comments MyChart Communication 02/20/2023 Encounter Details Date Type Department Care Team ([facility] st Contact Info) Description 02/20/2023 MyC Medical Advice [address] [phone] Laureano Bennett MD [address] [place] [address] MyChart Communication Social History Tobacco Use [...] sent Awaiting reply Megha Berg RN, BSN [facility] Triage documented in this encounter Plan of Treatment Not on file documented as of this encounter Visit Diagnoses Not on filedocumented in this encounter Additional Health Concerns Assessment Noted Time PHQ-9 Depression Total Score: 12 023 9:01 AM CDT documented as of this encounter Care Teams Onion Topper Relationship Specialty Start Date End Date Laureano Bennett MD [address] [place] [address] [phone] PCP - General Family Medicine 07/07/20 Laureano Bennett MD [address] [place] [address] Assigned PCP 08/14/[address] [place] [address] Pot Fireman Dietitian, Registered 06/14/23 documented as of this encounter
--- OUTSIDE RECORDS SUMMARY | 2024-12-13 00:35 | XMS_ITS | Encounter Summary ---
Author Organization [place] Address [address] [place] [address] Care Team Providers Care Station Baggage Porter Name Role Phone Laureano Bennett MD Primary Care Provider [phone] Laureano Bennett MD Unavailable [phone] Unavailable [phone] Encounter Details Date Type Department Care Team ([facility] st Contact Info) Description 10/27/2024 MyC Medical Advice [address] [phone] Laureano Bennett MD [address] [place] [address] Social History Tobacco Use Types Packs/Day [...] Answer Date Recorded PHQ-2 Score 0 07/10/2024 [facility] - Occupational Stress Questionnaire Answer [...] in an abandoned building, in an overnight fdc, or couch-surfing.) Yes 04/04/2024 Are you worried [...] to review and advise. Regina Candelario RN [place] Triage documented in this encounter Plan of Treatment Not on file documented as of this encounter Visit Diagnoses Not on filedocumented in this encounter Additional Health Concerns Assessment Noted Time PHQ-9 Depression Total Score: 5 05/11/20 24 8:45 AM PLASTER MODEL AND MOLD MAKER documented as of this encounter Care Teams Station Baggage Porter Relationship Specialty Start Date End Date Laureano Bennett MD [address] [place] [address] PCP - General Family Medicine 07/07/20 Lauerano Bennett MD [address] [place] [address] Assigned PCP 08/14/[address] [facility] [place] [address] [place] [address] Pelt Inspector Dietitian, Registered 06/14/23 documented as of this encounter
--- OUTSIDE RECORDS SUMMARY | 2024-12-13 00:35 | XMS_ITS | Encounter Summary ---
Author Organization [place] Address [address] [place] [address] Care Team Providers Care Curb Hop Name Role Phone Laureano Bennett MD Primary Care Provider Laureano Bennett MD Unavailable [phone] Unavailable [phone] Reason for Visit * Reason Onset Date Comments MyChart Communication 02/27/2024 Encounter Details Date Type Department Care Team (Late st Contact Info) Description 02/27/2024 MyC Medical Advice [address] [phone] Laureano Bennett MD [address] [place] [address] MyChart Communication Social History Tobacco Use [...] in an abandoned building, in an overnight halfway, or couch-surfing.) Yes 06/14/2023 Are you worried [...] documented as of this encounter Care Teams Curb Hop Relationship Specialty Start Date End Date Laureano Bennett MD [address] [place] [address] PCP - General Family Medicine 07/07/20 Laureano Bennett MD [address] [place] [address] Assigned PCP 08/14/[address] [facility] [place] [address] [place] [address] Grid Inspector Dietitian, Registered 06/14/23 documented as of this encounter
--- OUTSIDE RECORDS SUMMARY | 2024-12-13 00:35 | XMS_ITS ---
Author Organization [place] Address [address] [place] [address] Care Team Providers Care Woven Blind Loom Tender Name Role Phone Laureano Bennett MD Primary Care Provider Laureano Bennett MD Unavailable [phone] Unavailable [phone] Diabetes Self-Management Education Status:Identified (Enrolling) Start date:06/14/2023 Continued Care and Services Coordination
--- OUTSIDE RECORDS SUMMARY | 2024-12-13 00:35 | XMS_ITS | Encounter Summary ---
Author Organization [place] Address [address] [place] [address] Care Team Providers Care Motion Picture Camera Lens Technician Name Role Phone Laureano Bennett MD Primary Care Provider [phone] Laureano Bennett MD Unavailable [phone] Unavailable [phone] Encounter Details Date Type Department Care Team ([facility] st Contact Info) Description 01/14/2023 [facility] Medical Advice [address] [phone] Laureano Bennett MD [address] [place] [address] Social History Tobacco Use Types Packs/Day [...] documented as of this encounter Care Teams Motion Picture Camera Lens Technician Relationship Specialty Start Date End Date Laureano Bennett MD [address] [place] [address] PCP - General Family Medicine 07/07/20 [place] [address] [place] [address] Assigned PCP 08/14/[address] [facility] [place] [address] [place] [address] Gps Field Data Collector Dietitian, Registered 06/14/23 documented as of this encounter
--- OUTSIDE RECORDS SUMMARY | 2024-12-13 00:36 | XMS_ITS | Encounter Summary ---
Author Organization [place] Address [address] [place] [address] Care Team Providers Care Irrigation Technician Name Role Phone Laureano Bennett MD Primary Care Provider [phone] Laureano Bennett MD Unavailable [phone] Unavailable Encounter Details Date Type Department Care Team ([facility] st Contact Info) Description 01/05/2023 [facility] Medical Advice [address] [phone] Laureano Bennett MD [address] [place] [address] Social History Tobacco Use Types Packs/Day [...] documented as of this encounter Care Teams Irrigation Technician Relationship Specialty Start Date End Date Laureano Bennett MD [address] [place] [address] PCP - General Family Medicine 07/07/20 [place] [address] [place] [address] Assigned PCP 08/14/[address] [facility] [place] [address] [place] [address] Belt Maker Dietitian, Registered 06/14/23 documented as of this encounter
--- OUTSIDE RECORDS SUMMARY | 2024-12-13 00:36 | XMS_ITS | Encounter Summary ---
Author Organization [place] Address [address] [place] [address] Care Team Providers Care Road Commissioner Name Role Phone Laureano Bennett MD Primary Care Provider [phone] Laureano Bennett MD Unavailable [phone] Unavailable [phone] Encounter Details Date Type Department Care Team ([facility] st Contact Info) Description 10/31/2024 Orders Only [address] [place] [phone] Laureano Bennett MD [address] [place] [address] Social History Tobacco Use Types Packs/Day [...] re latives? Once a week 04/04/2024 Attends Shinto Services Not on file 04/04 Active Member of Clubs or Organizations Not on f ile 04/04/2024 Attends Club or Organization Meetings Not on mesha e 04/04/2024 Marital Status Not on file 04/04/2024 PHQ-2 Answer Date Recorded PHQ-2 Score 0 07/10/2024 [facility] - Occupational Stress Questionnaire Answer Date Recorded [...] in an abandoned building, in an overnight long-term, or couch-surfing.) Yes 04/04/2024 Are you worried [...] Total Score: 5 05/11/20 24 8:45 AM BIAS MACHINE OPERATOR HELPER documented as of this encounter Care Teams Road Commissioner Relationship Specialty Start Date End Date Laureano Bennett MD [address] [place] [address] PCP - General Family Medicine 07/07/20 Laureano Bennett MD [address] [place] [address] Assigned PCP 08/14/[address] [place] [address] Maintenance Director Dietitian, Registered 06/14/23 documented as of this encounter
--- OUTSIDE RECORDS SUMMARY | 2024-12-13 00:36 | XMS_ITS | Clinical Summary ---
Author Organization [facility] Address [address] [place] [address] Care Team Providers Care Engine Lathe Tender Name Role Phone Elsewhere, Pcp Primary Care Provider Unavailabl e Source Comments Patient records contain information from all sites at [facility]. For routine questions regarding patient records, call [phone] during business hours, M-F 8:00 AM - 5:00 PM Central Time. Record requests for emergency care only can be directed to [phone] at any time.[facility] Allergies No known active allergies Medications docusate [...] or fever. 90 tablet 2 Active omega 2-nde-zfa-fish oil 1,000 mg (120 mg-180 mg) capsule [...] Comments Blood Pressure 120/93 05/21/2024 5:30 AM BEADWORKER Pulse 90 05/21/2024 5:58 AM BEADWORKER Temperature 36.8 C (98.2 F) 05/21/2024 5:23 AM BEADWORKER Respiratory Rate 20 05/21/2024 5:30 AM BEADWORKER Oxygen Saturation 97% 05/21/2024 5:58 AM BEADWORKER Inhaled Oxygen Concentration - - Weight 75.3 kg (166 lb 0.1 oz) 05/21/2024 5:18 A M BEADWORKER Height 175.5 cm (5' 9.09) 05/19/2022 1:41 PM CS T Body Mass Index 24.45 05/19/2022 1:41 PM BEADWORKER Plan of Treatment Health Maintenance Due Date [...] patient's age to complete this topic Insurance [facility] [place] [address] Advance Directives For more information, please contact: [phone] * Full Code (Latest Code Status on File) Date Activated Date Inactivated Comments 10/30/2021 2:51 AM 10/30/2021 3:16 PM Question Answer Comments Full Code: Not Discussed Due to: Not medically appropriate Care Teams Engine Lathe Tender Relationship Specialty Start Date End Date Elsewhere, Pcp PCP - General Internal Medicine 09/17/22
--- OUTSIDE RECORDS SUMMARY | 2024-12-13 00:36 | XMS_ITS | Encounter Summary ---
Author Organization [place] Address [address] [place] [address] Care Team Providers Care Program Manager Environmental Planning Name Role Phone Laureano Bennett MD Primary Care Provider [phone] Laureano Bennett MD Unavailable [phone] Unavailable [phone] Reason for Visit * Reason Comments Medication Refill Encounter Details Date Type Department Care Team ([facility] st Contact Info) Description 11/14/[address] [phone] Laureano Bennett MD [address] [place] [address] Medication Refill Social History Tobacco Use [...] re latives? Once a week 04/04/2024 Attends Scientology Services Not on file 04/04 Active Member of Clubs or Organizations Not on f ile 04/04/2024 Attends Club or Organization Meetings Not on mesha e 04/04/2024 Marital Status Not on file 04/04/2024 PHQ-2 Answer Date Recorded PHQ-2 Score 0 07/10/2024 [facility] [place] of Occupat ional Health - Occupational Stress [...] Total Score: 5 05/11/20 24 8:45 AM NEUROBIOLOGIST documented as of this encounter Care Teams Program Manager Environmental Planning Relationship Specialty Start Date End Date Laureano Bennett MD [address] [place] [phone] PCP - General Family Medicine 07/07/20 Laureano Bennett MD [address] [place] [address] [phone] Assigned PCP 08/14/[address] [place] [address] [place] [address] Home Health Aide Dietitian, Registered 06/14/23 documented as of this encounter
== END 2024-12-12 14:45 | disposition home or self-care (01) ==
PROVIDERS: Visit Provider Obstetrics & Gynecology
DX: O24.419 Gestational diabetes mellitus in pregnancy, unspecified control (principal); Z87.59 Personal history of other complications of pregnancy, childbirth and the puerperium; Z3A.27 27 weeks gestation of pregnancy
CPT/HCPCS: 76816

== ENCOUNTER 2024-12-19 09:35 | Outpatient (CLI) | payer BC, SELFPAY | END 2024-12-19 09:36 | disposition home or self-care (01) | LOC: NFLDREF 12-23 06:53 | PROVIDERS: Visit Provider Obstetrics & Gynecology | DX: Z34.93 Encounter for supervision of normal pregnancy, unspecified, third trimester (principal); Z3A.28 28 weeks gestation of pregnancy | CPT/HCPCS: 86592 ==

== ENCOUNTER 2024-12-25 07:24 | Outpatient (CLI) | payer BC, SELFPAY ==
--- NOTE | 2024-12-25 07:15 | CRLHL7_ITS ---
For Patients: As a result of the Cures Act, medical imaging exams and procedure reports are released immediately into your electronic medical record. You may view this report before your referring provider. If you have questions, please contact your health care provider. OB ULTRASOUND [place] by US: 03/11/2025. GA: 29 w, 1 d. Single. Comparison: Ultrasound 12/12/2024, 11/07/2024, 10/10/2024. INDICATION: History of IUFD. History of macrosomia. Pre-diabetes. TECHNIQUE: Real time grayscale imaging of the fetus was performed. Transabdominal. CERVIX: Not visualized. POSITIONING: Vertex. AMNIOTIC FLUID: 5.0 cm. SDP (N: greater than 2 x 1 cm) BIOPHYSICAL PROFILE: 2: Gross body movements 2: tone 2: Respiratory activity 2: Amniotic fluid SDP (N: greater than 2 x 1 cm) 8/8: Total score PLACENTA: Technique: Transabdominal. PLACENTA POSITION: Posterior. DOPPLER: heart rate: 144 bpm. IMPRESSION: Normal biophysical profile score 8/8. Andrew Wilkes M.D. Diagnostic Radiologist [email or web address] MOON/mo hassan/Dictated by: Andrew Wilkes MD @ 12/25/2024 11:02:00 AM (Electronically Signed)
== END 2024-12-25 07:25 | disposition home or self-care (01) ==
LOC: US 07:25
PROVIDERS: Visit Provider Obstetrics & Gynecology
DX: O26.893 Other specified pregnancy related conditions, third trimester (principal); R73.03 Prediabetes; Z3A.29 29 weeks gestation of pregnancy
CPT/HCPCS: 76819

== ENCOUNTER 2025-01-02 13:13 | Outpatient (CLI) | payer BC, SELFPAY | END 2025-01-02 13:14 | disposition home or self-care (01) | LOC: US 13:13 | PROVIDERS: Visit Provider Obstetrics & Gynecology | DX: O24.419 Gestational diabetes mellitus in pregnancy, unspecified control (principal); Z87.59 Personal history of other complications of pregnancy, childbirth and the puerperium; Z3A.30 30 weeks gestation of pregnancy | CPT/HCPCS: 76816 ==

== ENCOUNTER 2025-01-08 12:19 | Outpatient (CLI) | payer BC, SELFPAY ==
--- NOTE | 2025-01-08 12:15 | CRLHL7_ITS ---
For Patients: As a result of the Century Cures Act, medical imaging exams and procedure reports are released immediately into your electronic medical record. You may view this report before your referring provider. If you have questions, please contact your health care provider. INDICATION: IUFD, macrosomia and prediabetes TECHNIQUE: Ultrasound OB pelvis transabdominal. Real-time vang-scale imaging of the fetus was performed with color Doppler and spectral Doppler analysis of the umbilical artery without stress testing. COMPARISON: 12/25/2024 FINDINGS: Sonographic imaging demonstrates a single living intrauterine gestation. Fetus demonstrates a regular cardiac rate of 155 beats per minute. Fetus has a cephalic orientation. The placenta lies posterior. Amniotic fluid volume appears normal with a MVP of 5.7 cm. breathing movements, motion, and tone were all observed. IMPRESSION: Single viable intrauterine with a biophysical profile 01/25. Dictated by Stephan Jaime MD @ 01/08/2025 1:19:31 PM (Electronically Signed)
== END 2025-01-08 12:20 | disposition home or self-care (01) ==
LOC: US 12:19
PROVIDERS: Visit Provider Obstetrics & Gynecology
DX: O09.293 Supervision of pregnancy with other poor reproductive or obstetric history, third trimester (principal); R73.03 Prediabetes; Z3A.31 31 weeks gestation of pregnancy
CPT/HCPCS: 76819; 82565; 82570; 84156; 84450; 84460; 84520; 84550

== ENCOUNTER 2025-01-14 12:19 | Outpatient (CLI) | payer BC, SELFPAY ==
--- NOTE | 2025-01-14 12:15 | CRLHL7_ITS ---
For Patients: As a result of the Century Cures Act, medical imaging exams and procedure reports are released immediately into your electronic medical record. You may view this report before your referring provider. If you have questions, please contact your health care provider. INDICATION: IUFD, macrosomia and prediabetes TECHNIQUE: Ultrasound OB pelvis transabdominal. Real-time vang-scale imaging of the fetus was performed with color Doppler and spectral Doppler analysis of the umbilical artery without stress testing. COMPARISON: 01/08/2025 FINDINGS: Sonographic imaging demonstrates a single living intrauterine gestation. Fetus demonstrates a regular cardiac rate of 145 beats per minute. Fetus has a cephalic orientation. The placenta lies posterior. Amniotic fluid volume appears normal with a MVP of 6.9 cm. breathing movements, motion, and tone were all observed. IMPRESSION: Single viable intrauterine with a biophysical profile 01/25. Dictated by Stephan Jaime MD @ 01/14/2025 2:46:33 PM (Electronically Signed)
== END 2025-01-14 12:20 | disposition home or self-care (01) ==
LOC: US 12:20
PROVIDERS: Visit Provider Obstetrics & Gynecology
DX: O24.419 Gestational diabetes mellitus in pregnancy, unspecified control (principal); Z3A.32 32 weeks gestation of pregnancy
CPT/HCPCS: 76819

== ENCOUNTER 2025-01-14 12:29 | Outpatient (CLI) | payer BC, SELFPAY | END 2025-01-14 12:30 | disposition home or self-care (01) | LOC: NFLDREF 01-15 16:19 | PROVIDERS: Visit Provider Obstetrics & Gynecology | DX: O24.419 Gestational diabetes mellitus in pregnancy, unspecified control (principal); Z3A.32 32 weeks gestation of pregnancy | CPT/HCPCS: 82570; 84156 ==

== ENCOUNTER 2025-01-14 13:44 | Outpatient (CLI) | payer BC, SELFPAY ==
[2025-01-14] VITALS (7 sets, daily range): BP systolic 116–123; BP diastolic 56–62; PULSE 61–76; RESP 16; TEMP 36.9; O2SAT 97
[2025-01-14 14:43] LABS: Hematocrit 36.4 % (33.0-51.0); Hemoglobin* 12.5 gm/dL (12.0-16.0); Mean Corpuscular HGB Conc 34 gm/dL (32-36); Mean Corpuscular Hemoglobin 31 pg (26-34); Mean Corpuscular Volume 89 fL (80-100); Red Blood Count 4.09 m/uL (4.00-5.20); White Blood Count* 6.92 K/uL (4.50-11.00)
[2025-01-14] MEDS: INSULIN ASPART 100 UNIT/ML SUBCUT (14:45)
[2025-01-14 14:51] LABS: Slide Review Reflex No
[2025-01-14 15:06] LABS: Albumin* 3.8 g/dL (3.3-5.0); Chloride* 105 mmol/L (96-114); Potassium* 3.8 mmol/L (3.6-5.1); Sodium* 133 mmol/L (135-149)
[2025-01-14 15:09] LABS: Alanine Aminotransferase* 15 U/L (4-35); Alkaline Phosphatase* 56 U/L (40-150); Anion Gap 7 mEq/L (7-15); Aspartate Amino Transferase* 24 U/L (12-35); Bilirubin Total* 0.4 mg/dL (0.1-1.5); Blood Urea Nitrogen* 16 mg/dL (5-24); Carbon Dioxide* 21 mmol/L (20-32); Creatinine* 0.5 mg/dL (0.5-1.5); Estimated Glomerular Filt Rate 130 ml/min; Total Protein* 6.4 g/dL (6.0-8.3)
[2025-01-14 15:10] LABS: Calcium* 9.3 mg/dL (8.4-10.6); Glucose* 79 mg/dL (60-115)
--- NOTE | 2025-01-14 16:50 | PC.OBNST ---
NST Note NST Note Start: 01/14/25 13:53 Freq: ONCE Status: Active Protocol: Document 01/14/25 16:49 ROSSI (Rec: 01/14/25 16:50 ROSSI No Response) NST Note 6 Para (# of births) 5 EDC 03/11/25 Gestational Age In 32 Weeks & 0 Days Weeks & Days High Risk Factors High Blood Pressure - Gestational,Diabetes - Gestational Insulin,History of /Stillborn Patient Presented Other with Complaint(s) of Other Complaints Elevated blood pressure in clinic Reactive Yes Appropriate for Yes Gestational Age GAVI Fulton, GAVIC Date 01/14/25 Reactive Yes Appropriate for Yes Gestational Age GAVI Carl, GAVI Date 01/14/25 OB NST charge Yes Complete NST Note Yes via Write Note The provider's electronic signature indicates the NST is reactive/appropriate for gestational age. *Note to provider: If an addendum is required, open the patient's chart and click on the note under the Nurse/Allied Health tab.
== END 2025-01-14 16:08 | disposition home or self-care (01) ==
LOC: OB OUT 13:44 → OB 13:46
PROVIDERS: Visit Provider Obstetrics & Gynecology
DX: O14.93 Unspecified pre-eclampsia, third trimester (principal); O24.419 Gestational diabetes mellitus in pregnancy, unspecified control; Z3A.33 33 weeks gestation of pregnancy
CPT/HCPCS: 36415; 59025; 80053; 85027; G0463

== ENCOUNTER 2025-01-17 13:58 | Outpatient (CLI) | payer BC, SELFPAY ==
[2025-01-17] VITALS (10 sets, daily range): BP systolic 118–128; BP diastolic 61–72; PULSE 64–96; O2SAT 96–97
[2025-01-17 14:22] LABS: Hematocrit 37.0 % (33.0-51.0); Hemoglobin* 12.6 gm/dL (12.0-16.0); Mean Corpuscular HGB Conc 34 gm/dL (32-36); Mean Corpuscular Hemoglobin 31 pg (26-34); Mean Corpuscular Volume 90 fL (80-100); Red Blood Count 4.12 m/uL (4.00-5.20); White Blood Count* 7.19 K/uL (4.50-11.00)
[2025-01-17 14:29] LABS: Slide Review Reflex No
[2025-01-17 14:37] LABS: Alanine Aminotransferase* 16 U/L (4-35); Aspartate Amino Transferase* 25 U/L (12-35); Blood Urea Nitrogen* 15 mg/dL (5-24); Creatinine* 0.7 mg/dL (0.5-1.5); Estimated Glomerular Filt Rate 120 ml/min
[2025-01-17] MEDS: ACETAMINOPHEN 500 MG TABLET 1000 MG PO (14:57)
[2025-01-17] MEDS: METOCLOPRAMIDE 10 MG TABLET PO (14:58)
[2025-01-17] MEDS: INSULIN ASPART 100 UNIT/ML SUBCUT (15:21)
--- NOTE | 2025-01-17 16:49 | PC.OBNST ---
NST Note NST Note Start: 01/17/25 14:07 Freq: ONCE Status: Active Protocol: Document 01/17/25 14:07 ABH (Rec: 01/17/25 16:49 AB No Response) NST Note 6 Para (# of births) 5 EDC 03/11/25 Gestational Age In 32 Weeks & 3 Days Weeks & Days High Risk Factors High Blood Pressure - Gestational Patient Presented Headache with Complaint(s) of Reactive Yes Appropriate for Yes Gestational Age GAVI Low RN Date 01/17/25 Reactive Yes Appropriate for Yes Gestational Age GAVI Jacobson RN Date 01/17/25 OB NST charge Yes Complete NST Note Yes via Write Note The provider's electronic signature indicates the NST is reactive/appropriate for gestational age. *Note to provider: If an addendum is required, open the patient's chart and click on the note under the Nurse/Allied Health tab.
== END 2025-01-17 16:40 | disposition home or self-care (01) ==
LOC: OB OUT 13:58 → OB 14:00
PROVIDERS: Obstetrics & Gynecology; Visit Provider Obstetrics & Gynecology
DX: O13.3 Gestational [pregnancy-induced] hypertension without significant proteinuria, third trimester (principal); Z3A.32 32 weeks gestation of pregnancy
CPT/HCPCS: 36415; 59025; 82565; 84450; 84460; 84520; 85027; G0463; A9270

== ENCOUNTER 2025-01-22 19:35 | Outpatient (CLI) | payer BC, SELFPAY ==
[2025-01-22] VITALS (8 sets, daily range): BP systolic 111–125; BP diastolic 55–72; PULSE 64–73; TEMP 36.8
[2025-01-22] MEDS: ACETAMINOPHEN 500 MG TABLET 1000 MG PO (20:07)
[2025-01-22 20:50] LABS: Hematocrit 34.0 % (33.0-51.0); Hemoglobin* 11.7 gm/dL (12.0-16.0); Mean Corpuscular HGB Conc 34 gm/dL (32-36); Mean Corpuscular Hemoglobin 31 pg (26-34); Mean Corpuscular Volume 89 fL (80-100); Red Blood Count 3.83 m/uL (4.00-5.20); White Blood Count* 6.65 K/uL (4.50-11.00)
[2025-01-22 20:52] LABS: Slide Review Reflex No
[2025-01-22 21:05] LABS: Alanine Aminotransferase* 16 U/L (4-35); Aspartate Amino Transferase* 24 U/L (12-35); Blood Urea Nitrogen* 17 mg/dL (5-24); Creatinine* 0.6 mg/dL (0.5-1.5); Estimated Glomerular Filt Rate 125 ml/min
--- NOTE | 2025-01-22 21:59 | PC.OBNST ---
NST Note NST Note Start: 01/22/25 19:40 Freq: ONCE Status: Active Protocol: Document 01/22/25 19:40 [facility] (Rec: 01/22/25 21:59 [facility] [id number]) NST Note 6 Para (# of births) 5 EDC 03/11/25 Gestational Age In 33 Weeks & 1 Days Weeks & Days High Risk Factors High Blood Pressure - Gestational,Diabetes - Gestational Insulin,History of /Stillborn Patient Presented Headache with Complaint(s) of Other Complaints diagnosis of pre-eclampsia Reactive Yes Appropriate for Yes Gestational Age GAVI Dominguez RN Date 01/22/25 Reactive Yes Appropriate for Yes Gestational Age GAVI Harman RN Date 01/22/25 OB NST charge Yes Complete NST Note Yes via Write Note The provider's electronic signature indicates the NST is reactive/appropriate for gestational age. *Note to provider: If an addendum is required, open the patient's chart and click on the note under the Nurse/Allied Health tab.
== END 2025-01-22 22:00 | disposition home or self-care (01) ==
LOC: OB OUT 19:35 → OB 19:36
PROVIDERS: Visit Provider Obstetrics & Gynecology
DX: O14.93 Unspecified pre-eclampsia, third trimester (principal); O24.419 Gestational diabetes mellitus in pregnancy, unspecified control; Z3A.33 33 weeks gestation of pregnancy
CPT/HCPCS: 36415; 59025; 82565; 84450; 84460; 84520; 85027; G0463; A9270

== ENCOUNTER 2025-01-23 13:14 | Outpatient (CLI) | payer BC, SELFPAY | END 2025-01-23 13:15 | disposition home or self-care (01) | LOC: NFLDREF 01-28 14:46 | PROVIDERS: Referring Provider Obstetrics & Gynecology; Visit Provider Obstetrics & Gynecology | DX: O24.419 Gestational diabetes mellitus in pregnancy, unspecified control (principal); O34.83 Maternal care for other abnormalities of pelvic organs, third trimester; Z3A.33 33 weeks gestation of pregnancy | CPT/HCPCS: 82565; 84450; 84460; 84520; 84550 ==

== ENCOUNTER 2025-01-23 13:16 | Outpatient (CLI) | payer BC, SELFPAY | END 2025-01-23 13:17 | disposition home or self-care (01) | LOC: US 13:17 | PROVIDERS: Visit Provider Obstetrics & Gynecology | DX: O24.419 Gestational diabetes mellitus in pregnancy, unspecified control (principal); Z3A.33 33 weeks gestation of pregnancy | CPT/HCPCS: 76816; 76819 ==

== ENCOUNTER 2025-01-24 15:44 | Outpatient (CLI) | payer BC, SELFPAY ==
--- NOTE | 2025-01-24 16:00 | CRLHL7_ITS ---
For Patients: As a result of the Century Cures Act, medical imaging exams and procedure reports are released immediately into your electronic medical record. You may view this report before your referring provider. If you have questions, please contact your health care provider. Indication: Headache, preeclampsia, 32 weeks Technique: Multiplanar, multisequence MRI of the brain obtained without contrast. Comparison: None. Findings: The ventricles and cortical sulci are age-appropriate in size and configuration. No midline shift or mass effect. No acute intracranial hemorrhage or abnormal extra-axial fluid collection. No evidence of acute/subacute ischemia. Solitary FLAIR hyperintense focus in the right frontal lobe white matter, nonspecific, but potentially sequela of migraine headaches. Mild fullness of the pituitary gland, presumed physiologic. The major expected intracranial flow voids are visualized. Included bone marrow signal is unremarkable. No suspicious findings in the regional soft tissues. Paranasal sinuses and mastoid air cells have a normal signal. Visualized orbits are unremarkable. Impression: 1. No evidence of acute intracranial abnormality. Dictated by Lynne Bueno MD @ 01/24/2025 5:14:19 PM (Electronically Signed)
== END 2025-01-24 15:45 | disposition home or self-care (01) ==
LOC: MRI 15:45
PROVIDERS: Visit Provider Obstetrics & Gynecology
DX: R51.9 Headache, unspecified (principal); O14.93 Unspecified pre-eclampsia, third trimester; Z3A.32 32 weeks gestation of pregnancy
CPT/HCPCS: 70551

== ENCOUNTER 2025-01-28 12:05 | Outpatient (CLI) | payer BC, SELFPAY ==
--- NOTE | 2025-01-28 12:15 | CRLHL7_ITS ---
For Patients: As a result of the Century Cures Act, medical imaging exams and procedure reports are released immediately into your electronic medical record. You may view this report before your referring provider. If you have questions, please contact your health care provider. OB ULTRASOUND BIOPHYSICAL PROFILE, 01/28/2025 CLINICAL HISTORY: History of IUFD, h/o macrosomia, prediabetes. COMPARISON: 01/23/2025, 01/14/2025, 01/08/2025. TECHNIQUE: Real time vang scale imaging of the fetus was performed. Transabdominal imaging performed. FINDINGS: Gestation: Single. [place] by US: 03/11/2025. GA: 34 weeks 0 days. Cervix: Not visualized. Positioning: Vertex. Amniotic Fluid: 4.2 cm SDP. BIOPHYSICAL PROFILE: Gross Body Movements: 2 Tone: 2 Respiratory Activity: 2 Amniotic Fluid: 2 Total Score: 8 Placenta: Technique: TA. Placenta Position: Posterior. Dopplers: Heart Rate: 157 bpm. IMPRESSION: Normal biophysical profile score of 8/8. Andrew Wilkes M.D. Diagnostic Radiologist [email or web address] Transcribed: 4:57 pm DW/Dictated by: Andrew Wilkes MD @ 01/28/2025 4:02:00 PM (Electronically Signed)
== END 2025-01-28 12:06 | disposition home or self-care (01) ==
LOC: US 12:08
PROVIDERS: Visit Provider Obstetrics & Gynecology
DX: O09.293 Supervision of pregnancy with other poor reproductive or obstetric history, third trimester (principal); Z87.59 Personal history of other complications of pregnancy, childbirth and the puerperium; R73.03 Prediabetes; Z3A.34 34 weeks gestation of pregnancy
CPT/HCPCS: 76819

== ENCOUNTER 2025-01-28 13:46 | Outpatient (CLI) | payer BC, SELFPAY ==
[2025-01-29 15:32] LABS: Strep B DNA Probe Negative (Negative)
[2025-01-29 18:02] LABS: Strep B Susceptibility Needed? No
== END 2025-01-28 13:47 | disposition home or self-care (01) ==
LOC: NFLDREF 13:46
PROVIDERS: Visit Provider Obstetrics & Gynecology
DX: Z34.93 Encounter for supervision of normal pregnancy, unspecified, third trimester (principal); Z3A.34 34 weeks gestation of pregnancy
CPT/HCPCS: 82565; 84450; 84460; 84520; 84550; 87081; 87653

== ENCOUNTER 2025-02-21 11:05 | Outpatient (CLI) | payer BC, SELFPAY ==
--- NOTE | 2025-02-21 12:38 | W.PM.LAC.MC ---
Consult Note - Mom Date of Visit Date of visit: 02/21/25 Reason for consultation: Assistance Needed and Other ( born at 34+3 weeks; now 37+3 adjusted age) Visit Code: Visit Patient's Information Phone number: [phone] : 6 Para: 5 Allergies No Known Drug Allergies Allergy (Verified 01/28/25 12:54) Mother's Medical History: Medical History (Updated 01/23/25 @ 15:13 by Danni Molina MD) Gestational diabetes mellitus (GDM) requiring insulin ?O24.414 - Gestational diabetes mellitus in , insulin controlled (ICD-10) Pelvic floor dysfunction in female (07/10/20) ?M62.89 - Other specified disorders of muscle (ICD-10) Dermatitis (07/10/20) ?L30.9 - Dermatitis, unspecified (ICD-10) Dyspareunia, female (07/10/20) ?N94.10 - Unspecified dyspareunia (ICD-10) Work Plans: home with kids Delivery Information Gestational Age: 34+3 Gestational Weight For Age: AGA Weight: 2.41 kg Discharge Weight: 2.523 kg Baby's Information Baby's Age at Visit: 3 weeks Baby's Provider or Clinic: [facility] Jaundice: No Past Experience Past Experience: Yes Current Frequency of Day Feedings: every 3 hrs, day and night Both Breasts: Yes (just starting to work on ) Pumping Pumping: Yes Quantity Pumped: 3-6 oz total Supplementing EBM Supplement: Yes (takes 55-70ml/feeding, fortified to 22 kcal/oz) Formula Supplement: No Baby Elimination Number of Wet Diapers a Day: ea feeding Number of BM a Day: multiple/day Breast/Nipple Condition Breast Information: Breasts are symmetrical with rounded lower quadrants, intramammary distance is less than 1.5 inches. No erythema. Nipples are supple, everted prior to feeding. Breast Shape: Round Engorgement: No Maternal Nipple Condition - Left: Common Nipple Maternal Nipple Condition - Right: Common Nipple Sore Nipples: No Baby Assessment Skin: Normal Tongue/frenulum: Normal/elastic Palate: Average Lips: Relaxed and Symmetrical Jaw Alignment: Symmetrical Mucosa: [place], moist Onsite Observation Pre-Feed weight: 2.864 kg Post-Feed weight: 2.928 kg Milk Transferred (mL): 64 Position: Cross cradle Attachment/latch-on achieved: Easily Suck pattern: Suck burst and normal rest Swallow: Audible, consistent Behavior following feed: Alert, content Pre-Nursing Left Nipple: Within Normal Limits Pre-Nursing Right Nipple: Within Normal Limits Post-Nursing Left Nipple: Within Normal Limits Post-Nursing Right Nipple: Within Normal Limits Assessments/Interventions Assessments/Interventions: Mom, Yu, is here to work towards Salty. She breastfed her other children, but none were born as early as he was. She does make attempts at latching, but he doesn't get a deep latch, and doesn't stay on for long. With some coaching, shwetha was able to get a wide, deep latch and stayed nursing/swallowing for 12 min on mom's RIGHT side and 10 min on her LEFT side. He transferred 42 ml on the RIGHT and 22 ml on the LEFT. Mom felt bringing him on more quickly allowed him to get a deeper latch and sustain nursing better/longer and she used breast compression to help him transfer more milk. Education provided: Early feeding cues to maximize timing of latching, Asymmetric latch technique for wide/deep latch to increase milk, Transfer for baby and increase comfort for mom, Supply/demand nature of milk supply, Need for frequent stimulation/milk removal, Use of nipple shield (nipples measured for size, although he didn't need it today for latching), Pumping for milk management and Milk collection, storage Follow-Up Suggested follow up: Appointment as needed Time Spent Time spent with patient (min): 75 Meds Home Medications and Allergies Home Medications ?Medication ?Instructions ?Recorded ?Confirmed ?Type vits no.126-ferrous fum 1 tab PO QDAY 07/21/23 01/28/25 History 28 mg iron-folic acid 800 mcg tablet (Classic ) acetaminophen 500 mg tablet 1,000 mg (2 x 500 mg) PO Q6H PRN 08/05/23 01/28/25 Rx #0 tabs creatine monohydrate 5,000 mg oral 5,000 mg PO .qd PRN 07/26/24 01/28/25 History powder packet doxylamine succinate 25 mg tablet 25 mg PO QHS PRN 07/26/24 01/28/25 History (Unisom (doxylamine)) protein (Ensure High Protein oral 1 ea PO .qd 07/26/24 01/28/25 History powder) omega 3,5,6,7,9 combination no.1 1 cap PO .qd 08/21/24 01/28/25 History 700 mg-salmon oil 1,500 mg capsule (Complete [place]) insulin NPH isoph U-100 human 100 13 unit subcut QHS 11/22/24 01/28/25 History unit/mL subcutaneous suspension (Humulin N NPH U-100 Insulin (isophane susp)) insulin lispro 100 unit/mL 2 unit subcut .qd 11/22/24 01/28/25 History subcutaneous solution aspirin 81 mg tablet 81 mg PO QDAY #90 tabs 11/26/24 01/28/25 Rx ondansetron 4 mg disintegrating 4 mg PO Q6-8H PRN nausea and 12/03/24 01/28/25 Rx tablet vomiting #30 tabs metoclopramide HCl 10 mg tablet 10 mg PO Q6H PRN nausea and 01/17/25 01/28/25 Rx (Reglan) vomiting #30 tabs Allergies Allergy/AdvReac Type Severity Reaction Status Date / Time No Known Drug Allergies Allergy Verified 01/28/25 12:54
== END 2025-02-21 11:06 | disposition home or self-care (01) ==
LOC: OB LAC 11:05
PROVIDERS: Visit Provider Obstetrics & Gynecology
DX: Z39.1 Encounter for care and examination of lactating mother (principal)
CPT/HCPCS: G0463

== ENCOUNTER 2025-03-12 08:30 | Outpatient (CLI) | payer BC, SELFPAY | END 2025-03-12 08:31 | disposition home or self-care (01) | LOC: NFLDREF 03-15 18:50 | PROVIDERS: Visit Provider Physician Assistant | DX: Z34.93 Encounter for supervision of normal pregnancy, unspecified, third trimester (principal) | CPT/HCPCS: 82947; 82950 ==